=== PATIENT | female | born 1965 | race Caucasian/White ===

== ENCOUNTER → 2017-10-18 | Outpatient (CLI) | payer MEDICAID ==
[~2017-10-18] MED LIST: ACHD5005 PO; ALBU0.632 IH; ALBUTEROL IH; ALPR1T PO; ASP81TEC PO; BENZ100C18 PO; BUDE6HFA IH; CRESTOR40 MG PO; CYCL10TA9 PO; DULO60CA6 PO; EZET10TA5 PO; FENO135C PO; FURO20TA4 PO; HCT25T PO; HYDR-3583 PO; LEVO5TAB2 PO; LEVO750T24 PO; LOSA100T16 PO; LOSA100T7 PO; MNTL10T PO; OMEP20CA12 PO; OMG1KC PO; OXYGEN INH; PHEN-633 PO; PRD10T PO; PRD20T PO; PRD5T PO; PRED5SOL PO; PREG25CA; PREG25CA PO; RT-ALBUTEROL SULF 2.5 MG/3 ML PRE-MIX VIAL INH ONE; TIOT18CA IH; TRAZ150T42 PO; [UNRECOGNIZED DRUG - CODE] PO
== END ==
LOC: RAD 15:06
PROVIDERS: ATTEND Nurse Practitioner Family
DX: J44.9 Chronic obstructive pulmonary disease, unspecified (principal); Z72.0 Tobacco use
CPT/HCPCS: 94060; 94726; 94729

== ENCOUNTER → 2017-11-23 | Outpatient (CLI) | payer MEDICAID ==
[~2017-11-23] VITALS: Ht 152.4 cm; Wt 99.8 kg
[~2017-11-23] MED LIST changes: +CATHETER FLUSH 10 ML SYR IV PRN; +REGADENOSON 0.4 MG/5 ML SYR (LEXISCAN) IV ONE; -RT-ALBUTEROL SULF 2.5 MG/3 ML PRE-MIX VIAL INH ONE
[2017-11-23 09:57] VITALS: BP 208/109
--- NOTE | 2017-11-23 19:10 | STRESS TEST ---
DATE OF SERVICE: 11/23/2017 RESTING AND POST REGADENOSON TECHNETIUM-99M TETROFOSMIN SPECT CT IMAGING CLINICAL DIAGNOSES: Coronary artery disease, history of coronary bypass surgery. Baseline images after injection of 10.43 mCi technetium-99m tetrofosmin. This was followed by 0.4 mg meter regadenoson and 32.3 mCi technetium-99m tetrofosmin for stress imaging. The electrocardiogram showed sinus rhythm with a nonspecific ST and T-wave abnormality. The electrocardiogram did not change with the regadenoson infusion. She felt nausea after the regadenoson infusion. This resolved in a few minutes. Review of images at rest and following stress does not indicate any distinct perfusion defects consistent with significant myocardial ischemia or infarction. Gated images show normal global left ventricular systolic function with normal regional wall motion. Left ventricular ejection fraction is calculated to be 70%. Left ventricular end-diastolic volume is 42 mL. TID is absent (0.86). CONCLUSIONS: 1. No evidence of significant myocardial ischemia or infarction on the study. 2. Normal regional wall motion. 3. Normal global left ventricular systolic function with a calculated ejection fraction of 70%. Job ID: [id number] DocumentID: [id number] Dictated Date: 11/23/2017 16:14:49 Band Leader Date: 11/23/2017 19:09:11 Dictated By: AMAIRANI LABOY MD, MA, FACP, FACC,
== END ==
LOC: CARD 08:05
PROVIDERS: ATTEND Nurse Practitioner Family
DX: Z48.812 Encounter for surgical aftercare following surgery on the circulatory system (principal); Z95.1 Presence of aortocoronary bypass graft
CPT/HCPCS: 78452; 93017

== ENCOUNTER → 2017-12-07 | Outpatient (CLI) | payer MEDICAID ==
[~2017-12-07] MED LIST changes: -CATHETER FLUSH 10 ML SYR IV PRN; -REGADENOSON 0.4 MG/5 ML SYR (LEXISCAN) IV ONE
== END ==
LOC: CARD 10:48
PROVIDERS: ATTEND Nurse Practitioner Family
DX: I73.9 Peripheral vascular disease, unspecified (principal); R06.09 Other forms of dyspnea
CPT/HCPCS: 93306; 93923

== ENCOUNTER 2019-02-02 13:43 | Emergency (ER) | payer MEDICAID ==
[~2019-02-02] VITALS: Ht 152.4 cm; Wt 96.6 kg
--- OUTSIDE RECORDS SUMMARY | 2019-02-02 13:47 | XMS REPORT ---
Author Author Migration, Doctor Organization [facility] Address Unknown Phone Unavailable Care Team Providers Care Steward/Stewardess Bath Name Role Phone Migration, Doctor Unavailable Unavailable PROBLEMS Type Condition ICD9-CM Code DZE66-HK Code Onset Dates Condition Status SNOMED Code Problem Mixed hyperlipidemia E78.2 Active 180123020 Problem Obesity (BMI 30-39.9) E66.9 Active 512254988 Problem PTSD (post-traumatic stress disorder) F43.10 Active 90647866 Problem Sleep apnea in adult G47.30 Active 82076414 Problem Bipolar 1 disorder F31.9 Active 875471291 Problem Coronary artery disease involving coronary bypass graft of [place] heart without angina pectoris I25.810 Active 281579084 Problem COPD mixed type J44.9 Active 94725020 Problem Panic disorder F41.0 Active 282559982 Problem MESERET (generalized anxiety disorder) F41.1 Active 43737799 Problem Mood disorder F39 Active 93476389 Problem Body mass index (BMI) of 45.0-49.9 in adult Z68.42 Active 606332812 Problem Chronic obstructive pulmonary disease with acute exacerbation J44.1 Active 576183725 Problem Cannabis use disorder, mild, abuse F12.10 Active 36585821 Problem Essential hypertension I10 Active 50994620 Problem Coronary artery disease involving [place] coronary artery of [place] heart without angina pectoris I25.10 Active 5576298538608 Problem Claudication I73.9 Active 830227142 Problem Bipolar disorder, in partial remission, most recent episode depressed F31.75 Active 34959885 Problem Morbid (severe) obesity due to excess calories E66.01 Active [id number] ALLERGIES No Information ENCOUNTERS Encounter Location Date Diagnosis [facility], [place] [address] [facility] [id number] [address] January, [facility] [address] [facility] [id number] [id number] January, [facility], [place] [address] [facility] [id number], [place] [address] Dec, Bipolar disorder, in partial remission, most recent episode depressed F31.75 ; Panic disorder F41.0 ; MESERET (generalized anxiety disorder) F41.1 and Cannabis use disorder, mild, abuse F12.10 [facility] [id number] [id number] Dec, COPD mixed type J44.9 [facility] [id number] [place] [address] [phone] Dec, Essential hypertension I10 ; COPD mixed type J44.9 and Morbid obesity E66.01 [place] [place] [address] [id number] [place] [address] 45722- 4503 Nov, [place] [id number] [place] [address] 48476- 4902 Nov, Morbid obesity E66.01 ; Bipolar disorder, in partial remission, most recent episode depressed F31.75 ; Panic disorder F41.0 and MESERET ( generalized anxiety disorder) F41.1 [place] [id number] [place] [address] 10793- 0411 Oct, Bipolar disorder, in partial remission, most recent episode depressed F31.75 ; MESERET (generalized anxiety disorder) F41.1 ; Panic disorder F41.0 and BMI 40.0-44.9, adult Z68.41 [place] [address] [place] [address] 46389- 7388 Sep, Bipolar disorder, in partial remission, most recent episode depressed F31.75 [place] [place] [id number] [place] [address] 68419- 0704 Sep, [facility] [id number] [place] [address] 12169- 6350 Aug, Bipolar disorder, in partial remission, most recent episode depressed F31.75 [place] [place] [id number] [place] [address] 71642- 0462 Aug, Bipolar 1 disorder, depressed F31.9 ; PTSD (post-traumatic stress disorder) F43.10 and Panic attacks F41.0 [place] [address] [address] 17 Aug, 2018 Bipolar disorder, in partial remission, most recent episode depressed F31.75 [place] [address] [place] [address] 60509- 7074 Jul, Bipolar disorder, in partial remission, most recent episode depressed F31.75 ; MESERET (generalized anxiety disorder) F41.1 ; Panic disorder F41.0 and BMI 45.0-49.9, adult Z68.42 [place] [place] [address] [place] [address] 75047- 8731 16 Jul, 2018 Bipolar disorder, in partial remission, most recent episode depressed F31.75 [facility] [address] [place] [address] [phone] May, Hidradenitis suppurativa L73.2 and BMI 45.0-49.9, adult Z68.42 [place] [id number] [place] [address] 79626- 0195 18 May, 2018 Bipolar 1 disorder, depressed F31.9 ; PTSD (post-traumatic stress disorder) F43.10 and Panic attacks F41.0 [place] [address] [place] [address] 35616- 2254 18 May, 2018 Bipolar disorder, in partial remission, most recent episode depressed F31.75 ; MESERET (generalized anxiety disorder) F41.1 ; Panic disorder F41.0 and BMI 45.0-49.9, adult Z68.42 [place] [address] [place] [address] 49001- 9737 Apr, Bipolar disorder, in partial remission, most recent episode depressed F31.75 ; MESERET (generalized anxiety disorder) F41.1 ; Panic disorder F41.0 and BMI 45.0-49.9, adult Z68.42 [facility] [address] [place] [address] [id number] Apr, [facility] [id number] [place] [address] 00223- 1713 Apr, Bipolar 1 disorder, depressed F31.9 [place] [address]00565100[place] [address] 7[address] Mar, Bipolar disorder, in partial remission, most recent episode depressed F31.75 ; MESERET (generalized anxiety disorder) F41.1 ; Panic disorder F41.0 and BMI 45.0-49.9, adult Z68.42 [facility] [id number] [place] [address] [id number] 16 Mar, 2018 High risk medication use Z79.899 and Mixed hyperlipidemia E78.2 [facility] [address] [place] [address] [phone] Mar, COPD mixed type J44.9 ; Essential hypertension I10 ; Sleep apnea in adult G47.30 ; Mixed hyperlipidemia E78.2 ; Morbid (severe) obesity due to excess calories E66.01 ; Body mass index (BMI) of 45.0-49.9 in adult Z68.42 ; Tobacco abuse Z72.0 ; Tobacco abuse counseling Z71.6 and BMI 45.0-49.9, adult Z68.42 [place] [address] [place] [address] 19459- 0627 Feb, Bipolar disorder, in partial remission, most recent episode depressed F31.75 ; MESERET (generalized anxiety disorder) F41.1 ; Panic disorder F41.0 and BMI 45.0-49.9, adult Z68.42 [place] [address] [place] [address] 52013- 0045 Feb, Bipolar 1 disorder, depressed F31.9 ; PTSD (post-traumatic stress disorder) F43.10 and Panic attacks F41.0 [place] [address] [place] [address] 64894- 7353 Feb, High risk medication use Z79.899 [place] [address] [place] [address] 56042- 9331 January, High risk medication use Z79.899 ; Bipolar disorder, in partial remission, most recent episode depressed F31.75 ; MESERET (generalized anxiety disorder) F41.1 ; Panic disorder F41.0 and BMI 45.0-49.9, adult Z68.42 [place] [id number] [place] [address] 04097- 2035 January, Bipolar 1 disorder, depressed F31.9 ; PTSD (post-traumatic stress disorder) F43.10 and Panic attacks F41.0 [place] [id number] [place] [address] 27213- 5452 January, Bipolar 1 disorder, depressed F31.9 ; PTSD (post-traumatic stress disorder) F43.10 and Panic attacks F41.0 [place] [id number] [place] [address] 24075- 4396 Dec, BMI 45.0-49.9, adult Z68.42 ; Bipolar disorder, in partial remission, most recent episode depressed F31.75 ; MESERET (generalized anxiety disorder) F41.1 and Panic disorder F41.0 [place] [id number] [place] [address] 37161- 0515 Dec, Bipolar 1 disorder, depressed F31.9 ; PTSD (post-traumatic stress disorder) F43.10 and Panic attacks F41.0 [place] [id number] [place] [address] 58200- 6095 Nov, Bipolar disorder, in partial remission, most recent episode depressed F31.75 ; MESERET (generalized anxiety disorder) F41.1 and Panic disorder F41.0 [place] [address] [place] [address] 44361- 6373 Nov, [place] [id number] [place] [address] 09289- 6982 Nov, [place] [id number] [place] [address] 05158- 7419 Oct, BMI 45.0-49.9, adult Z68.42 ; Bipolar disorder, in partial remission, most recent episode depressed F31.75 ; MESERET (generalized anxiety disorder) F41.1 and Panic disorder F41.[address] [facility] [address] [id number] [place] [id number] 23 Oct, 2017 BMI 45.0-49.9, adult Z68.42 ; Coronary artery disease involving [place] coronary artery of [place] heart without angina pectoris I25.10 ; Hx of CABG Z95.1 ; Dyspnea on exertion R06.09 ; Essential hypertension I10 ; Mixed hyperlipidemia E78.2 ; Claudication I73.9 and Tobacco use Z72.0 [facility] [address] [facility] [id number][place] [id number] 15 Oct, 2017 BMI 45.0-49.9, adult Z68.42 ; Bipolar 1 disorder, depressed F31.9 and Abscess L02.91 [address] [place] [address] 48616- 2401 14 Oct, 2017 Bipolar 1 disorder, depressed F31.9 ; PTSD (post-traumatic stress disorder) F43.10 and Panic attacks F41.0 [address] [place] [address] 71562- 0822 Sep, BMI 40.0-44.9, adult Z68.41 ; Mood disorder F39 ; MESERET ( generalized anxiety disorder) F41.1 and Panic disorder F41.0 [address] [place] [address] 91747- 4319 Sep, BMI 40.0-44.9, adult Z68.41 [place] [address] [place] [address] 13228- 7667 Sep, Bipolar 1 disorder, depressed F31.9 ; PTSD (post-traumatic stress disorder) F43.10 and Panic attacks F41.0 [place] [id number] [place] [address] 63738- 8586 Aug, BMI 40.0-44.9, adult Z68.41 ; Mood disorder F39 ; MESERET ( generalized anxiety disorder) F41.1 and Panic disorder F41.0 [place] [id number] [place] [address] 06904- 0496 Aug, Bipolar 1 disorder, depressed F31.9 ; PTSD (post-traumatic stress disorder) F43.10 and Panic attacks F41.0 [place] [id number] [place] [address] [phone] Aug, [facility] [id number] [place] [address] [phone] Aug, COPD mixed type J44.9 [place] [address] 32557- 4618 Aug, [place] [address] [place] [id number] [place] [address] 48304- 7942 Jul, PTSD (post-traumatic stress disorder) F43.10 ; Panic disorder F41.0 ; MESERET (generalized anxiety disorder) F41.1 ; Mood disorder F39 and BMI 40.0-44.9, adult Z68.41 [place] [address] [place] [address] [place] [address] 17896- 0116 Jul, Bipolar 1 disorder, depressed F31.9 ; PTSD (post-traumatic stress disorder) F43.10 and Panic attacks F41.0 [place] [id number] [place] [address] [id number] Jul, Bipolar 1 disorder, depressed F31.9 [address] [place] [address] [phone] Jul, Anxiety F41.9 ; COPD mixed type J44.9 ; Essential hypertension I10 ; Bipolar 1 disorder F31.9 ; High risk medication use Z79.899 ; BMI 40.0-44.9, adult Z68.41 and Coronary artery disease involving coronary bypass graft of [place] heart without angina pectoris I25.810 [place] [id number] [place] [address] [phone] Jul, Chronic obstructive pulmonary disease with acute exacerbation J44.1 and Acute nasopharyngitis J00 [facility] [address] [place] [address] [phone] Jul, Anxiety F41.9 ; Mixed hyperlipidemia E78.2 and Bipolar 1 disorder F31.9 [facility] [address] [id number] [place] [address] Jun Bipolar 1 disorder F31.9 [facility] [address] [id number] [place] [address] Jun [facility] [address] [place] [address] [id number][place] [id number] Jun, Anxiety F41.9 ; Elevated blood sugar R73.9 ; Mixed hyperlipidemia E78.2 ; COPD mixed type J44.9 ; Essential hypertension I10 ; Bipolar 1 disorder F31.9 ; Coronary artery disease involving coronary bypass graft of [place] heart without angina pectoris I25.810 ; High risk medication use Z79.899 ; Controlled substance agreement signed Z79.899 ; Elevated fasting glucose R73.01 ; Encounter for immunization Z23 and BMI 40.0-44.9, adult Z68.41 [facility] [id number] [place] [address] [phone] Jun, Elevated blood sugar R73.9 [facility] [id number] [place] [address] [phone] Jun, [facility] [address] [id number] [place] [address] [phone] Jun, Bipolar 1 disorder F31.9 ; Obesity (BMI 30-39.9) E66.9 ; Coronary artery disease involving coronary bypass graft of [place] heart without angina pectoris I25.810 and Essential hypertension I10 [facility] [id number] [place] [address] [phone] Jun, Coronary artery disease involving coronary bypass graft of [place] heart without angina pectoris I25.810 ; Bipolar 1 disorder F31.9 ; Anxiety F41.9 ; Essential hypertension I10 ; COPD mixed type J44.9 and Mixed hyperlipidemia E78.2 [place] [address] [id number] [place] [address] [phone] May, Severe single current episode of major depressive disorder, 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.2 ; Bipolar 1 disorder F31.9 ; Anxiety F41.9 ; PTSD (post -traumatic stress disorder) F43.10 ; Coronary artery disease involving coronary bypass graft of [place] heart without angina pectoris I25.810 ; Sleep apnea in adult G47.30 ; Essential hypertension I10 ; High risk medication use Z79.899 ; Obesity (BMI 30-39.9) E66.9 ; Encounter for therapeutic drug level monitoring Z51.81 and COPD mixed type J44.9 [facility] [address] [place] [address] [phone] May, Severe single current episode of major depressive disorder, 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.2 ; Bipolar 1 disorder F31.9 ; Anxiety F41.9 ; PTSD (post -traumatic stress disorder) F43.10 ; Mixed hyperlipidemia E78.2 ; Coronary artery disease involving coronary bypass graft of [place] heart without angina pectoris I25.810 ; Sleep apnea in adult G47.30 ; Essential hypertension I10 ; High risk medication use Z79.899 ; Controlled substance agreement signed Z79.899 ; Obesity (BMI 30-39.9) E66.9 ; Tobacco abuse Z72.0 ; Tobacco abuse counseling Z71.6 and COPD mixed type J44.9 [facility] [id number] [place] [address] [phone] May, [facility], [place] [id number] [place] [address] [id number]- 1199 Dec, [facility], [place] [address] [id number] [place] [address] [phone]- 5404 Dec, [facility], [place] [id number] [place] [address] [phone] May, [facility], [place] [id number] [place] [address] 58285- 6422 May, [facility] [address] [place] [address] [phone] Dec, [facility], [place] [id number] [place] [address] 468008- 7507 Dec, [facility] [address] [place] [address] [id number] Dec, [facility], [place] [address] 70214- 3126 Dec, [facility] [place] [facility] [address] [id number] [place] [address]- 2543 Dec, [facility] [place] [facility] [address] [id number] [place] [address]- 2546 Dec, [facility] [place] [facility] [address] [facility] [id number] [place] [address]- 2546 Nov, [facility] [address] [id number] [place] [id number] Nov, [facility] [address] [id number] [place] [id number] Nov, [facility] [address] [id number] [place] [phone] Nov, [facility] [place] [facility] [address] [facility] [id number] [place] [address]- 2546 Nov, [facility] [place] [facility] [address] [place] [address] [id number] [address]- 2546 Nov, [facility] [place] [facility] [address] [facility] [id number] [place] [address]- 2546 Nov, [facility] [place] [facility] [address] [facility] [id number] [place] [address] 2546 15 Nov, 2013 [facility] [place] [facility] [address] [place] [id number] [address]- 2546 Nov, [facility] [place] [facility] [address] [facility] [id number][place] [address]- 2546 Nov, [facility] [address] [id number] [place] [id number] Nov, [facility] [address] [id number] [place] [id number] Oct, [facility] [place] [facility] [address] [id number] [place] [address]- 2546 Oct, [facility] [address] [id number] [place] [id number] Oct, [facility] [place] [facility] [address] [facility] [id number], [place] [address]- 5966 Oct, [facility] [address] [facility] [id number], [place] [address]- 3596 Oct, [facility] [address] [facility] [id number][place] [id number] Sep, [facility] [address] [facility] [id number], [place] [address]- 1966 Sep, [facility] [address] [facility] [id number], [place] [id number] Sep, [facility] [place] [facility] [address] [facility] [id number], [place] [address]- 8796 Sep, [facility] [place] [facility] [address] [place] [address] [id number] [address]- 8346 Sep, [facility] [address]00565[place] [address]- 0378 Sep, [facility] [place] [facility] [address]00565[place] [address]- 0150 Aug, [facility] [address] [facility] [id number][place] [id number] Aug, [facility] [place] [facility] [address]00565[place] [address]- 0316 Aug, [facility] [id number], [place] [id number] Jul, [facility] [place] [facility] [address] [facility] [id number][place] [address]- 8112 Jul, [facility] [address] [facility] [id number], [place] [id number] Jul, [facility] [place] [facility] [address] [facility] [id number], [place] [address]- 7016 Jul, [facility] [place] [facility] [address] [id number] [address]- 7873 May, [facility] [place] [facility] [address]00565[address] [address]- 2546 Apr, [facility] [address] [facility] [id number], [place] [address]- 2546 Apr, [facility] [address] [facility] [id number][place] [address]- 2546 Mar, [facility] [address] [id number] [place] [id number] Feb, [facility] [address] [id number] [place] [id number] Feb, [facility] [address] [id number] [place] [id number] Feb, [facility] [address] [facility] [id number] [place] [address] 26567- 2546 Feb, [facility] [place] [facility] [address] [id number] [address]- 2546 January, [facility] [address]00565100[place], [place] [address]- 2546 January, [facility] [address] [id number] [place] [id number] Dec, [facility] [address] [id number] [place] [id number] Dec, [facility] [address] [id number][place] [id number] Dec, [facility] [address] [id number], [place] [id number] Dec, [facility] [address] [id number] [place] [id number] Dec, [facility] [address] [id number] [place] [id number] Dec, [facility] [address] [facility] [id number], [place] [address]- 2546 Dec, [facility] [place] [facility] [address] [facility] [id number], [place] [address]- 2546 Dec, [facility] [address] [id number][place] [id number] Nov, [facility] [address] [facility] [id number][place] [id number] Nov, [facility] [address] [facility] [id number] [place] [id number] Nov, [facility] [address] [facility] [id number] [place] [address]- 2546 Oct, [facility] [place] [facility] [address]100[facility] [address]- 2546 Oct, [facility] [place] [facility] [address] [facility] [id number] [place] [address]- 2550 Sep, [facility] [place] [facility] [id number] [address]- 3616 Aug, [facility] [id number] [address]- 5152 Aug, [facility] [place] [facility] [id number] [address]- 4286 Aug, [facility] [place] [facility] [id number] [address]- 0228 Aug, [facility] [id number], [place] [id number] Aug, [facility] [address]00565[place] [address]- 9236 Aug, [facility] [place] [facility] [address]00565100[place], [place] [address]- 2546 Jul, [facility] [place] [facility] [address] [facility] [id number], [place] [address] Jul, [facility] [place] [facility] [id number], [place] [address] Jul, [facility] [place] [facility] [address] [facility] [id number], [place] [address] Jul, [facility] [address] [id number] [id number] Jun, [facility] [address] [id number] [place] [id number] Jun, [facility] [place] [facility] [address] [facility] [id number] [place] [address] Jun, [facility] [address] [facility] [id number] [place] [id number] Apr, [facility] [place] [facility] [id number], [place] [address] Apr, [facility] [place] [facility] [address] [facility] [id number] [place] [address] Mar, [facility] [address] [id number] [place] [id number] Feb, [facility] [address] [facility] [id number] [place] [id number] Feb, [facility] [place] [facility] [id number], [place] [address] Feb, [facility] [address] [facility] [id number][place] [id number] Feb, [facility] [place] [facility] [id number], [place] [address] Feb, [facility] [place] [facility] [id number], [place] [address] Feb, [facility] [place] [facility] [id number], [place] [address] Feb, [facility] [place] [facility] [address] [facility] [id number], [place] [address] Feb, [facility] [address] [facility] [id number] [place] [id number] January, [facility] [address] [facility] [id number][place] [id number] Dec, [facility] [place] [facility] [address] [facility] [facility] [id number] [address] Dec, [facility] [place] [facility] [address] [facility] [id number], [place] [address] Dec, [facility] [address] [id number] [place] [id number] Dec, [facility] [address] [facility] [id number], [place] [address] Dec, [facility] [address] [id number] [place] [id number] Dec, [facility] [address] [id number] [place] [id number] Nov, [facility] [address] [id number] [place] [id number] Nov, [facility] [address] [id number] [place] [id number] Nov, [facility] [address] [id number] [place] [id number] Nov, [facility] [address] [address] Oct, [facility] [address] [id number] [place] [id number] Oct, [facility] [address] [id number] [place] [id number] Oct, [facility] [address] [id number] [place] [id number] Oct, [facility] [address] [id number] [place] [id number] Oct, [facility] [address] [id number] [place] [id number] Sep, [facility] [address] [id number] [place] [id number] Sep, [facility] [id number] [place] [address] Sep, [facility] [address]65[place] [address] Sep, [facility] [address]65[place] [address] Sep, [facility] [place] [facility] [address] [id number] [place] [address] Sep, [facility] [place] [facility] [address] [id number] [place] [address] 30 Aug, 2011 [facility] [place] [facility] [address] [id number] [place] [address] Aug, [facility] [place] [facility] [address] [id number] [place] [address] Aug, [facility] [place] [facility] [address] [id number] [place] [address] Aug, [facility] [place] [facility] [address] [id number] [place] [address] Aug, [facility] [place] [facility] [address] [id number] [place] [address] Aug, [facility] [place] [facility] [address] [id number] [place] [address] Aug, [facility] [place] [facility] [address] [id number] [place] [address] Aug, [facility] [place] [facility] [address] [id number] [place] [address] Jun, [facility] [place] [facility] [address] [id number] [place] [address] 27 Jun, 2011 [facility] [place] [facility] [address] [id number] [place] [address] 19 Jun, 2011 [facility] [place] [facility] [address] [id number] [place] [address] 19 Jun, 2011 [facility] [place] [facility] [address] [id number] [place] [address] 14 Jun, 2011 [facility] [place] [facility] [address] [id number] [place] [address] 13 Jun, 2011 [facility] [place] [facility] [address] [id number], [place] [address] Jun, [facility] [place] [address] [facility] [id number], [place] [address] Jun, [facility] [place] [address]65[address] [address] Jun, [facility] [place] [address]65[address] [address] 14 May, 2011 [facility] [place] [address] [facility] [id number], [place] [address] Apr, [facility] [place] [address] [facility] [id number], [place] [address] Feb, [facility] [place] [address] [id number] [address] Dec, [facility] [place] [address]65[address], [place] [address] Aug, [facility] [place] [address]65[address], [place] [address] Aug, [facility] [place] [address]65[address] [address] Aug, [facility] [place] [address]65[address] [address] Aug, [facility] [place] [address] [id number], [place] [address] Jul, [facility] [place] [address] [id number], [place] [address] Jun, [facility] [place] [address] [id number], [place] [address] Jun, IMMUNIZATIONS No Known Immunizations SOCIAL HISTORY Never Assessed REASON FOR VISIT [place] [place] VITAL SIGNS MEDICATIONS Unknown Medications RESULTS No Results PROCEDURES No Known procedures INSTRUCTIONS MEDICATIONS ADMINISTERED No Known Medications MEDICAL (GENERAL) HISTORY Type Description Date Medical History chronic obstructive pulmonary disease (COPD) Medical History emphysema Medical History hypertension Medical History depression Medical History Nerve damage left arm Medical History bipolar disorder Medical History anxiety Medical History asthma Medical History stroke Medical History seizures-2012 last one, hx of taking Dilantin Medical History sleep apnea Medical History Coronary atherosclerosis of unspecified type of vessel, [place] or graft Surgical History section x4 Surgical History CABG x3 Surgical History Left arm-Plate and screws placed Hospitalization History Surgery(s)/Childbirth(s) only
--- OUTSIDE RECORDS SUMMARY | 2019-02-02 13:48 | XMS REPORT ---
Author Author Migration, Doctor Organization [facility] Address Unknown Phone Unavailable Care Team Providers Care Manager Application Name Role Phone Migration, Doctor Unavailable Unavailable PROBLEMS Type Condition ICD9-CM Code GZT52-PP Code Onset Dates Condition Status SNOMED Code Problem Mixed hyperlipidemia E78.2 Active 974703203 Problem Obesity (BMI 30-39.9) E66.9 Active 317354114 Problem PTSD (post-traumatic stress disorder) F43.10 Active 34194590 Problem Sleep apnea in adult G47.30 Active 89341109 Problem Bipolar 1 disorder F31.9 Active 709412014 Problem Coronary artery disease involving coronary bypass graft of [place] heart without angina pectoris I25.810 Active 073497962 Problem COPD mixed type J44.9 Active 11542011 Problem Panic disorder F41.0 Active 068854116 Problem MESERET (generalized anxiety disorder) F41.1 Active 09545717 Problem Mood disorder F39 Active 84094078 Problem Body mass index (BMI) of 45.0-49.9 in adult Z68.42 Active 382439692 Problem Chronic obstructive pulmonary disease with acute exacerbation J44.1 Active 839427316 Problem Cannabis use disorder, mild, abuse F12.10 Active 67277254 Problem Essential hypertension I10 Active 97210306 Problem Coronary artery disease involving [place] coronary artery of [place] heart without angina pectoris I25.10 Active [id number] Problem Claudication I73.9 Active 448040476 Problem Bipolar disorder, in partial remission, most recent episode depressed F31.75 Active 46894768 Problem Morbid (severe) obesity due to excess calories E66.01 Active [id number] ALLERGIES No Information ENCOUNTERS Encounter Location Date Diagnosis [facility], [place] [address] [facility] [id number] [address] January, [facility] [address] [facility] [id number] [place] [id number] January, [facility], [place] [address] [facility] [id number] [address] Dec, Bipolar disorder, in partial remission, most recent episode depressed F31.75 ; Panic disorder F41.0 ; MESERET (generalized anxiety disorder) F41.1 and Cannabis use disorder, mild, abuse F12.10 [facility] [id number] [place] [id number] Dec, COPD mixed type J44.9 [facility] [id number] [place] [address] [id number] Dec, Essential hypertension I10 ; COPD mixed type J44.9 and Morbid obesity E66.01 [place] [id number] [place] [address] 40214- 9875 Nov, [place] [id number] [place] [address] 08239- 9698 Nov, Morbid obesity E66.01 ; Bipolar disorder, in partial remission, most recent episode depressed F31.75 ; Panic disorder F41.0 and MESERET ( generalized anxiety disorder) F41.1 [place] [id number] [place] [address] 97319- 9014 Oct, Bipolar disorder, in partial remission, most recent episode depressed F31.75 ; MESERET (generalized anxiety disorder) F41.1 ; Panic disorder F41.0 and BMI 40.0-44.9, adult Z68.41 [place] [address] [place] [address] 73156- 1553 Sep, Bipolar disorder, in partial remission, most recent episode depressed F31.75 [place] [id number] [place] [address] 14025- 8428 Sep, [place] [id number] [place] [address] 03530- 7170 Aug, Bipolar disorder, in partial remission, most recent episode depressed F31.75 [place] [id number] [place] [address] 58469- 3538 Aug, Bipolar 1 disorder, depressed F31.9 ; PTSD (post-traumatic stress disorder) F43.10 and Panic attacks F41.0 [place] [address]00565100[place] [address] 17 Aug, 2018 Bipolar disorder, in partial remission, most recent episode depressed F31.75 [place] [address] [place] [address] 02975- 4796 Jul, Bipolar disorder, in partial remission, most recent episode depressed F31.75 ; MESERET (generalized anxiety disorder) F41.1 ; Panic disorder F41.0 and BMI 45.0-49.9, adult Z68.42 [place] [address] [place] [address] 54494- 0730 16 Jul, 2018 Bipolar disorder, in partial remission, most recent episode depressed F31.75 [facility] [address] [place] [address] [id number] May, Hidradenitis suppurativa L73.2 and BMI 45.0-49.9, adult Z68.42 [place] [id number] [place] [address] 57840- 2943 18 May, 2018 Bipolar 1 disorder, depressed F31.9 ; PTSD (post-traumatic stress disorder) F43.10 and Panic attacks F41.0 [place] [address] [place] [address] 01938- 3272 18 May, 2018 Bipolar disorder, in partial remission, most recent episode depressed F31.75 ; MESERET (generalized anxiety disorder) F41.1 ; Panic disorder F41.0 and BMI 45.0-49.9, adult Z68.42 [place] [address] [place] [address] 51299- 9017 Apr, Bipolar disorder, in partial remission, most recent episode depressed F31.75 ; MESERET (generalized anxiety disorder) F41.1 ; Panic disorder F41.0 and BMI 45.0-49.9, adult Z68.42 [facility] [address] [place] [address] [phone] Apr, [place] [id number] [place] [address] 83264- 2964 Apr, Bipolar 1 disorder, depressed F31.9 [place] [address]00565100[place] [address] 8965 Mar, Bipolar disorder, in partial remission, most recent episode depressed F31.75 ; MESERET (generalized anxiety disorder) F41.1 ; Panic disorder F41.0 and BMI 45.0-49.9, adult Z68.42 [facility] [id number] [place] [address] [id number] 16 Mar, 2018 High risk medication use Z79.899 and Mixed hyperlipidemia E78.2 [facility] [address] [place] [address] [id number] Mar, COPD mixed type J44.9 ; Essential hypertension I10 ; Sleep apnea in adult G47.30 ; Mixed hyperlipidemia E78.2 ; Morbid (severe) obesity due to excess calories E66.01 ; Body mass index (BMI) of 45.0-49.9 in adult Z68.42 ; Tobacco abuse Z72.0 ; Tobacco abuse counseling Z71.6 and BMI 45.0-49.9, adult Z68.42 [place] [address] [place] [address] 01532- 1639 Feb, Bipolar disorder, in partial remission, most recent episode depressed F31.75 ; MESERET (generalized anxiety disorder) F41.1 ; Panic disorder F41.0 and BMI 45.0-49.9, adult Z68.42 [place] [address] [place] [address] 48236- 3041 Feb, Bipolar 1 disorder, depressed F31.9 ; PTSD (post-traumatic stress disorder) F43.10 and Panic attacks F41.0 [place] [address] [place] [address] 89384- 4587 Feb, High risk medication use Z79.899 [place] [address] [place] [address] 58313- 0314 January, High risk medication use Z79.899 ; Bipolar disorder, in partial remission, most recent episode depressed F31.75 ; MESERET (generalized anxiety disorder) F41.1 ; Panic disorder F41.0 and BMI 45.0-49.9, adult Z68.42 [place] [id number] [place] [address] 06928- 2389 January, Bipolar 1 disorder, depressed F31.9 ; PTSD (post-traumatic stress disorder) F43.10 and Panic attacks F41.0 [place] [id number] [place] [address] 19407- 0089 January, Bipolar 1 disorder, depressed F31.9 ; PTSD (post-traumatic stress disorder) F43.10 and Panic attacks F41.0 [place] [id number] [place] [address] 62474- 6974 Dec, BMI 45.0-49.9, adult Z68.42 ; Bipolar disorder, in partial remission, most recent episode depressed F31.75 ; MESERET (generalized anxiety disorder) F41.1 and Panic disorder F41.0 [place] [id number] [place] [address] 29974- 6790 Dec, Bipolar 1 disorder, depressed F31.9 ; PTSD (post-traumatic stress disorder) F43.10 and Panic attacks F41.0 [place] [id number] [place] [address] 57192- 1969 Nov, Bipolar disorder, in partial remission, most recent episode depressed F31.75 ; MESERET (generalized anxiety disorder) F41.1 and Panic disorder F41.0 [place] [address] [place] [address] 28343- 0325 Nov, [place] [id number] [place] [address] 46939- 0556 Nov, [place] [id number] [place] [address] 37447- 0027 Oct, BMI 45.0-49.9, adult Z68.42 ; Bipolar disorder, in partial remission, most recent episode depressed F31.75 ; MESERET (generalized anxiety disorder) F41.1 and Panic disorder F41.0 [facility] [address] [id number] [place] [id number] 23 Oct, 2017 BMI 45.0-49.9, adult Z68.42 ; Coronary artery disease involving [place] coronary artery of [place] heart without angina pectoris I25.10 ; Hx of CABG Z95.1 ; Dyspnea on exertion R06.09 ; Essential hypertension I10 ; Mixed hyperlipidemia E78.2 ; Claudication I73.9 and Tobacco use Z72.0 [facility] [address] [facility] [id number] [place] [id number] 15 Oct, 2017 BMI 45.0-49.9, adult Z68.42 ; Bipolar 1 disorder, depressed F31.9 and Abscess L02.[address] [place] [address] 19402- 1730 14 Oct, 2017 Bipolar 1 disorder, depressed F31.9 ; PTSD (post-traumatic stress disorder) F43.10 and Panic attacks F41.0 [address] [place] [address] 09706- 1121 Sep, BMI 40.0-44.9, adult Z68.41 ; Mood disorder F39 ; MESERET ( generalized anxiety disorder) F41.1 and Panic disorder F41.0 [address] [place] [address] 52352- 3395 Sep, BMI 40.0-44.9, adult Z68.41 [place] [address] [place] [address] 33974- 1030 Sep, Bipolar 1 disorder, depressed F31.9 ; PTSD (post-traumatic stress disorder) F43.10 and Panic attacks F41.0 [place] [id number] [place] [address] 42181- 1806 Aug, BMI 40.0-44.9, adult Z68.41 ; Mood disorder F39 ; MESERET ( generalized anxiety disorder) F41.1 and Panic disorder F41.0 [place] [id number] [place] [address] 63238- 1766 Aug, Bipolar 1 disorder, depressed F31.9 ; PTSD (post-traumatic stress disorder) F43.10 and Panic attacks F41.0 [place] [id number] [place] [address] [id number] Aug, [facility] [id number] [place] [address] [id number] Aug, COPD mixed type J44.9 [place] [address] 52147- 6029 Aug, [place] [address] [place] [address] 16230- 3871 Jul, PTSD (post-traumatic stress disorder) F43.10 ; Panic disorder F41.0 ; MESERET (generalized anxiety disorder) F41.1 ; Mood disorder F39 and BMI 40.0-44.9, adult Z68.41 [place] [address] [address] [place] [address] 68071- 5786 Jul, Bipolar 1 disorder, depressed F31.9 ; PTSD (post-traumatic stress disorder) F43.10 and Panic attacks F41.0 [place] [id number] [place] [address] [id number] Jul, Bipolar 1 disorder, depressed F31.9 [address] [place] [address] [id number] Jul, Anxiety F41.9 ; COPD mixed type J44.9 ; Essential hypertension I10 ; Bipolar 1 disorder F31.9 ; High risk medication use Z79.899 ; BMI 40.0-44.9, adult Z68.41 and Coronary artery disease involving coronary bypass graft of [place] heart without angina pectoris I25.810 [place] [id number] [place] [address] [id number] Jul, Chronic obstructive pulmonary disease with acute exacerbation J44.1 and Acute nasopharyngitis J00 [facility] [address] [place] [address] [id number] Jul, Anxiety F41.9 ; Mixed hyperlipidemia E78.2 and Bipolar 1 disorder F31.9 [facility] [address] [id number] [place] [address] Jun Bipolar 1 disorder F31.9 [facility] [address] [id number] [place] [address] Jun [facility] [address] [place] [address] [id number] [place] [id number] Jun, Anxiety F41.9 ; Elevated blood sugar R73.9 ; Mixed hyperlipidemia E78.2 ; COPD mixed type J44.9 ; Essential hypertension I10 ; Bipolar 1 disorder F31.9 ; Coronary artery disease involving coronary bypass graft of [place] heart without angina pectoris I25.810 ; High risk medication use Z79.899 ; Controlled substance agreement signed Z79.899 ; Elevated fasting glucose R73.01 ; Encounter for immunization Z23 and BMI 40.0-44.9, adult Z68.41 [facility] [id number] [place] [address] [id number] Jun, Elevated blood sugar R73.9 [facility] [id number] [place] [address] [id number] Jun, [facility] [id number] [place] [address] [id number] Jun, Bipolar 1 disorder F31.9 ; Obesity (BMI 30-39.9) E66.9 ; Coronary artery disease involving coronary bypass graft of [place] heart without angina pectoris I25.810 and Essential hypertension I10 [facility] [id number] [place] [address] [id number] Jun, Coronary artery disease involving coronary bypass graft of [place] heart without angina pectoris I25.810 ; Bipolar 1 disorder F31.9 ; Anxiety F41.9 ; Essential hypertension I10 ; COPD mixed type J44.9 and Mixed hyperlipidemia E78.2 [place] [id number] [place] [address] [id number] May, Severe single current episode of major depressive disorder, 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.2 ; Bipolar 1 disorder F31.9 ; Anxiety F41.9 ; PTSD (post -traumatic stress disorder) F43.10 ; Coronary artery disease involving coronary bypass graft of [place] heart without angina pectoris I25.810 ; Sleep apnea in adult G47.30 ; Essential hypertension I10 ; High risk medication use Z79.899 ; Obesity (BMI 30-39.9) E66.9 ; Encounter for therapeutic drug level monitoring Z51.81 and COPD mixed type J44.9 [facility] [address] [place] [address] [phone] May, Severe single current episode of major depressive disorder, 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.2 ; Bipolar 1 disorder F31.9 ; Anxiety F41.9 ; PTSD (post -traumatic stress disorder) F43.10 ; Mixed hyperlipidemia E78.2 ; Coronary artery disease involving coronary bypass graft of [place] heart without angina pectoris I25.810 ; Sleep apnea in adult G47.30 ; Essential hypertension I10 ; High risk medication use Z79.899 ; Controlled substance agreement signed Z79.899 ; Obesity (BMI 30-39.9) E66.9 ; Tobacco abuse Z72.0 ; Tobacco abuse counseling Z71.6 and COPD mixed type J44.9 [facility] [id number] [place] [address] [id number] May, [facility], [place] [id number] [place] [address] [id number] Dec, [facility], [place] [id number] [place] [address] [id number]- 5074 Dec, [facility], [place] [id number] [place] [address] [id number] May, [facility], [place] [id number] [place] [address] 02555- 0873 May, [facility] [address] [place] [address] [id number] Dec, [facility], [place] [id number] [place] [address] 021162- 3765 Dec, [facility] [address] [place] [address] [id number] Dec, [facility], [place] [address] 85480- 5416 Dec, [facility] [place] [facility] [address] [id number] [place] [address]- 2545 Dec, [facility] [place] [facility] [address] [id number] [place] [address]- 2546 Dec, [facility] [place] [facility] [address] [facility] [id number] [place] [address]- 2546 Nov, [facility] [address] [id number] [place] [id number] Nov, [facility] [address] [id number] [place] [id number] Nov, [facility] [address] [id number] [place] [id number] Nov, [facility] [place] [facility] [address] [facility] [id number] [place] [address]- 2546 Nov, [facility] [place] [facility] [address] [place] [id number] [place] [address]- 2546 Nov, [facility] [place] [facility] [address] [facility] [id number] [place] [address]- 2546 Nov, [facility] [place] [facility] [address] [facility] [id number] [place] [address] 2546 15 Nov, 2013 [facility] [place] [facility] [address] [id number] [place] [address]- 2546 Nov, [facility] [place] [facility] [address] [facility] [id number] [address]- 2546 Nov, [facility] [address] [id number] [place] [id number] Nov, [facility] [address] [id number] [place] [id number] Oct, [facility] [place] [facility] [address] [id number] [place] [address]- 2546 Oct, [facility] [address] [id number] [place] [id number] Oct, [facility] [place] [facility] [address] [facility] [id number] [address]- 1306 Oct, [facility] [address] [facility] [id number] [place] [address]- 5106 Oct, [facility] [address] [facility] [id number] [place] [id number] Sep, [facility] [address] [facility] [id number] [address]- 4066 Sep, [facility] [address] [facility] [id number] [place] [id number] Sep, [facility] [place] [facility] [address] [facility] [id number] [address]- 0796 Sep, [facility] [place] [facility] [address] [id number] [address]- 9076 Sep, [facility] [address] [address]- 3277 Sep, [facility] [place] [facility] [address] [address]- 3010 Aug, [facility] [address] [facility] [id number] [place] [id number] Aug, [facility] [place] [facility] [address] [address]- 4416 Aug, [facility] [id number] [place] [id number] Jul, [facility] [place] [facility] [address] [facility] [id number] [address]- 2899 Jul, [facility] [address] [facility] [id number] [place] [id number] Jul, [facility] [place] [facility] [address] [facility] [id number] [place] [address]- 1826 Jul, [facility] [place] [facility] [address] [id number] [address]- 2170 May, [facility] [place] [facility] [address]100[place] [address]- 2546 Apr, [facility] [address] [facility] [id number] [place] [address]- 2546 Apr, [facility] [address] [facility] [id number] [address]- 2546 Mar, [facility] [address] [id number] [place] [id number] Feb, [facility] [address] [id number] [place] [id number] Feb, [facility] [address] [id number] [place] [id number] Feb, [facility] [address] [facility] [id number] [place] [address] 40652- 2546 Feb, [facility] [place] [facility] [address] [id number] [address]- 2546 January, [facility] [address] [address]- 2546 January, [facility] [address] [id number] [place] [id number] Dec, [facility] [address] [id number] [place] [address]46[address] Dec, [facility] [address] [id number] [place] [id number] Dec, [facility] [address] [id number] [place] [id number] Dec, [facility] [address] [id number] [place] [id number] Dec, [facility] [address] [id number] [place] [id number] Dec, [facility] [address] [facility] [id number] [place] [address]- 2546 Dec, [facility] [place] [facility] [address] [facility] [id number] [address]- 2546 Dec, [facility] [address] [id number] [place] [id number] Nov, [facility] [address] [facility] [id number] [place] [id number] Nov, [facility] [address] [facility] [id number] [place] [id number] Nov, [facility] [address] [facility] [id number] [place] [address]- 2546 Oct, [facility] [place] [facility] [id number] [place] [address]- 2546 Oct, [facility] [place] [facility] [address] [facility] [id number] [place] [address]- 0344 Sep, [facility] [place] [facility] [id number] [place] [address]- 4646 Aug, [facility] [id number] [place] [address]- 5914 Aug, [facility] [place] [facility] [id number] [place] [address]- 9386 Aug, [facility] [place] [facility] [id number] [place] [address]- 6489 Aug, [facility] [id number] [place] [id number] Aug, [facility] [address]00565100[place] [address]- 1666 Aug, [facility] [place] [facility] [address]100[place] [address]- 2546 Jul, [facility] [place] [facility] [address] [facility] [id number] [address] Jul, [facility] [place] [facility] [id number] [address] Jul, [facility] [place] [facility] [address] [facility] [id number] [address] Jul, [facility] [address] [id number] [place] [id number] Jun, [facility] [address] [id number] [place] [id number] Jun, [facility] [place] [facility] [address] [facility] [id number] [place] [address] Jun, [facility] [address] [facility] [id number] [place] [id number] Apr, [facility] [place] [facility] [id number] [address] Apr, [facility] [place] [facility] [address] [facility] [id number] [place] [address] Mar, [facility] [address] [id number] [place] [id number] Feb, [facility] [address] [facility] [id number] [place] [id number] Feb, [facility] [place] [facility] [id number] [address] Feb, [facility] [address] [facility] [id number] [place] [id number] Feb, [facility] [place] [facility] [id number] [address] Feb, [facility] [place] [facility] [id number] [address] Feb, [facility] [place] [facility] [id number] [address] Feb, [facility] [place] [facility] [address] [facility] [id number] [address] Feb, [facility] [address] [facility] [id number] [place] [id number] January, [facility] [address] [facility] [id number] [place] [id number] Dec, [facility] [place] [facility] [address] [facility] [id number] [address] Dec, [facility] [place] [facility] [address] [facility] [id number] [address] Dec, [facility] [address] [id number] [place] [id number] Dec, [facility] [address] [facility] [id number] [address] Dec, [facility] [address] [id number] [place] [id number] Dec, [facility] [address] [id number] [place] [id number] Nov, [facility] [address] [id number] [place] [id number] Nov, [facility] [address] [id number] [place] [id number] Nov, [facility] [address] [id number] [place] [id number] Nov, [facility] [id number] [address] Oct, [facility] [address] [id number] [place] [id number] Oct, [facility] [address] [id number] [place] [id number] Oct, [facility] [address] [id number] [place] [id number] Oct, [facility] [address] [id number] [place] [id number] Oct, [facility] [address] [id number] [place] [id number] Sep, [facility] [address] [id number] [place] [id number] Sep, [facility] [id number] [place] [address] Sep, [facility] [id number] [address] Sep, [facility] [id number] [address] Sep, [facility] [place] [facility] [address] [id number] [place] [address] Sep, [facility] [place] [facility] [address] [id number] [place] [address] 30 Aug, 2011 [facility] [place] [facility] [address] [id number] [place] [address] Aug, [facility] [place] [facility] [address] [id number] [place] [address] Aug, [facility] [place] [facility] [address] [id number] [place] [address] Aug, [facility] [place] [facility] [address] [id number] [place] [address] Aug, [facility] [place] [facility] [address] [id number] [place] [address] Aug, [facility] [place] [facility] [address] [id number] [place] [address] Aug, [facility] [place] [facility] [address] [id number] [place] [address] Aug, [facility] [place] [facility] [address] [id number] [place] [address] Jun, [facility] [place] [facility] [address] [id number] [place] [address] 27 Jun, 2011 [facility] [place] [facility] [address] [id number] [place] [address] 19 Jun, 2011 [facility] [place] [facility] [address] [id number] [place] [address] 19 Jun, 2011 [facility] [place] [facility] [address] [id number] [place] [address] 14 Jun, 2011 [facility] [place] [facility] [address] [id number] [place] [address] 13 Jun, 2011 [facility] [place] [facility] [address] [id number] [address] Jun, [facility] [place] [address] [facility] [id number] [address] Jun, [facility] [place] [id number] [address] Jun, [facility] [place] [id number] [address] 14 May, 2011 [facility] [place] [address] [facility] [id number] [address] Apr, [facility] [place] [address] [facility] [id number] [place] [address] Feb, [facility], [place] [address] [id number] [address] Dec, [facility], [place] [id number] [address] Aug, [facility] [place] [address]65100[place] [address] Aug, [facility] [place] [address]65[address] [address] Aug, [facility] [place] [address]65[address] [address] Aug, [facility], [place] [address] [id number] [address] Jul, [facility], [place] [address] [id number] [address] Jun, [facility], [place] [address] [id number] [address] Jun, IMMUNIZATIONS No Known Immunizations SOCIAL HISTORY Never Assessed REASON FOR VISIT EMR-[facility] [place] PLAN OF CARE VITAL SIGNS MEDICATIONS Unknown [...] Coronary atherosclerosis of unspecified type of vessel, [place] or graft Surgical History section x4 Surgical History CABG x3 Surgical History Left arm-Plate and screws placed Hospitalization History Surgery(s)/Childbirth(s) only
--- OUTSIDE RECORDS SUMMARY | 2019-02-02 13:48 | XMS REPORT ---
Author Author Migration, Doctor Organization [facility] Address Unknown Phone Unavailable Care Team Providers Care Documentation Supervisor Name Role Phone Migration, Doctor Unavailable Unavailable PROBLEMS Type Condition ICD9-CM Code EMJ30-AB Code Onset Dates Condition Status SNOMED Code Problem Mixed hyperlipidemia E78.2 Active 198008392 Problem Obesity (BMI 30-39.9) E66.9 Active 599559966 Problem PTSD (post-traumatic stress disorder) F43.10 Active 17461110 Problem Sleep apnea in adult G47.30 Active 99373193 Problem Bipolar 1 disorder F31.9 Active 358350673 Problem Coronary artery disease involving coronary bypass graft of [place] heart without angina pectoris I25.810 Active 562064763 Problem COPD mixed type J44.9 Active 37360966 Problem Panic disorder F41.0 Active 727535011 Problem MESERET (generalized anxiety disorder) F41.1 Active 49563968 Problem Mood disorder F39 Active 42337432 Problem Body mass index (BMI) of 45.0-49.9 in adult Z68.42 Active 608569377 Problem Chronic obstructive pulmonary disease with acute exacerbation J44.1 Active 150419286 Problem Cannabis use disorder, mild, abuse F12.10 Active 69651103 Problem Essential hypertension I10 Active 57035437 Problem Coronary artery disease involving [place] coronary artery of [place] heart without angina pectoris I25.10 Active 2647602764517 Problem Claudication I73.9 Active 901268373 Problem Bipolar disorder, in partial remission, most recent episode depressed F31.75 Active 31278250 Problem Morbid (severe) obesity due to excess calories E66.01 Active [id number] ALLERGIES No Information ENCOUNTERS Encounter Location Date Diagnosis [facility], [place] [address] [facility] [id number] [address] January, [facility] [address] [facility] [id number] [id number] January, [facility], [place] [address] [facility] [id number], [place] [address] Dec, Bipolar disorder, in partial remission, most recent episode depressed F31.75 ; Panic disorder F41.0 ; MESERET (generalized anxiety disorder) F41.1 and Cannabis use disorder, mild, abuse F12.10 [facility] [id number][place] [id number] Dec, COPD mixed type J44.9 [facility] [id number] [place] [address] [id number] Dec, Essential hypertension I10 ; COPD mixed type J44.9 and Morbid obesity E66.01 [place] [id number] [place] [address] 26346- 7663 Nov, [place] [id number] [place] [address] 36249- 7012 Nov, Morbid obesity E66.01 ; Bipolar disorder, in partial remission, most recent episode depressed F31.75 ; Panic disorder F41.0 and MESERET ( generalized anxiety disorder) F41.1 [place] [id number] [place] [address] 43581- 6447 Oct, Bipolar disorder, in partial remission, most recent episode depressed F31.75 ; MESERET (generalized anxiety disorder) F41.1 ; Panic disorder F41.0 and BMI 40.0-44.9, adult Z68.41 [place] [address] [place] [address] 14583- 2498 Sep, Bipolar disorder, in partial remission, most recent episode depressed F31.75 [place] [id number] [place] [address] 78561- 7930 Sep, [place] [id number] [place] [address] 37628- 7530 Aug, Bipolar disorder, in partial remission, most recent episode depressed F31.75 [place] [id number] [place] [address] 01600- 8493 Aug, Bipolar 1 disorder, depressed F31.9 ; PTSD (post-traumatic stress disorder) F43.10 and Panic attacks F41.0 [place] [address]005[place], [place] [address] 17 Aug, 2018 Bipolar disorder, in partial remission, most recent episode depressed F31.75 [place] [address] [place] [address] 98664- 4321 Jul, Bipolar disorder, in partial remission, most recent episode depressed F31.75 ; MESERET (generalized anxiety disorder) F41.1 ; Panic disorder F41.0 and BMI 45.0-49.9, adult Z68.42 [place] [address] [place] [address] 48098- 9970 16 Jul, 2018 Bipolar disorder, in partial remission, most recent episode depressed F31.75 [facility] [address] [place] [address] [phone] May, Hidradenitis suppurativa L73.2 and BMI 45.0-49.9, adult Z68.42 [place] [id number] [place] [address] 56775- 1387 18 May, 2018 Bipolar 1 disorder, depressed F31.9 ; PTSD (post-traumatic stress disorder) F43.10 and Panic attacks F41.0 [place] [address] [place] [address] 19657- 7805 18 May, 2018 Bipolar disorder, in partial remission, most recent episode depressed F31.75 ; MESERET (generalized anxiety disorder) F41.1 ; Panic disorder F41.0 and BMI 45.0-49.9, adult Z68.42 [place] [address] [place] [address] 74024- 1894 Apr, Bipolar disorder, in partial remission, most recent episode depressed F31.75 ; MESERET (generalized anxiety disorder) F41.1 ; Panic disorder F41.0 and BMI 45.0-49.9, adult Z68.42 [facility] [address] [place] [address] [phone] Apr, [place] [id number] [place] [address] 86785- 2350 Apr, Bipolar 1 disorder, depressed F31.9 [place] [address]00565100[place], [place] [address] Mar, Bipolar disorder, in partial remission, most recent episode depressed F31.75 ; MESERET (generalized anxiety disorder) F41.1 ; Panic disorder F41.0 and BMI 45.0-49.9, adult Z68.42 [facility] [id number] [place] [address] [id number] 16 Mar, 2018 High risk medication use Z79.899 and Mixed hyperlipidemia E78.2 [facility] [address] [place] [address] [phone] Mar, COPD mixed type J44.9 ; Essential hypertension I10 ; Sleep apnea in adult G47.30 ; Mixed hyperlipidemia E78.2 ; Morbid (severe) obesity due to excess calories E66.01 ; Body mass index (BMI) of 45.0-49.9 in adult Z68.42 ; Tobacco abuse Z72.0 ; Tobacco abuse counseling Z71.6 and BMI 45.0-49.9, adult Z68.42 [place] [address] [place] [address] 12907- 3094 Feb, Bipolar disorder, in partial remission, most recent episode depressed F31.75 ; MESERET (generalized anxiety disorder) F41.1 ; Panic disorder F41.0 and BMI 45.0-49.9, adult Z68.42 [place] [address] [place] [address] 51850- 6116 Feb, Bipolar 1 disorder, depressed F31.9 ; PTSD (post-traumatic stress disorder) F43.10 and Panic attacks F41.0 [place] [address] [place] [address] 63399- 7764 Feb, High risk medication use Z79.899 [place] [address] [place] [address] 56507- 0511 January, High risk medication use Z79.899 ; Bipolar disorder, in partial remission, most recent episode depressed F31.75 ; MESERET (generalized anxiety disorder) F41.1 ; Panic disorder F41.0 and BMI 45.0-49.9, adult Z68.42 [place] [id number] [place] [address] 26923- 8051 January, Bipolar 1 disorder, depressed F31.9 ; PTSD (post-traumatic stress disorder) F43.10 and Panic attacks F41.0 [place] [id number] [place] [address] 53481- 8120 January, Bipolar 1 disorder, depressed F31.9 ; PTSD (post-traumatic stress disorder) F43.10 and Panic attacks F41.0 [place] [id number] [place] [address] 89046- 6700 Dec, BMI 45.0-49.9, adult Z68.42 ; Bipolar disorder, in partial remission, most recent episode depressed F31.75 ; MESERET (generalized anxiety disorder) F41.1 and Panic disorder F41.0 [place] [id number] [place] [address] 59151- 2945 Dec, Bipolar 1 disorder, depressed F31.9 ; PTSD (post-traumatic stress disorder) F43.10 and Panic attacks F41.0 [place] [id number] [place] [address] 74030- 5285 Nov, Bipolar disorder, in partial remission, most recent episode depressed F31.75 ; MESERET (generalized anxiety disorder) F41.1 and Panic disorder F41.0 [place] [address] [place] [address] 42804- 3777 Nov, [place] [id number] [place] [address] 04718- 0452 Nov, [place] [id number] [place] [address] 32787- 3735 Oct, BMI 45.0-49.9, adult Z68.42 ; Bipolar disorder, in partial remission, most recent episode depressed F31.75 ; MESERET (generalized anxiety disorder) F41.1 and Panic disorder F41.[address] [facility] [address] [id number] [place] [id number] 23 Oct, 2017 BMI 45.0-49.9, adult Z68.42 ; Coronary artery disease involving [place] coronary artery of [place] heart without angina pectoris I25.10 ; Hx of CABG Z95.1 ; Dyspnea on exertion R06.09 ; Essential hypertension I10 ; Mixed hyperlipidemia E78.2 ; Claudication I73.9 and Tobacco use Z72.0 [facility] [address] [facility] [id number] [phone] 15 Oct, 2017 BMI 45.0-49.9, adult Z68.42 ; Bipolar 1 disorder, depressed F31.9 and Abscess L02.91 [address] [place] [address] 57051- 6256 14 Oct, 2017 Bipolar 1 disorder, depressed F31.9 ; PTSD (post-traumatic stress disorder) F43.10 and Panic attacks F41.0 [address] [place] [address] 48645- 2166 Sep, BMI 40.0-44.9, adult Z68.41 ; Mood disorder F39 ; MESERET ( generalized anxiety disorder) F41.1 and Panic disorder F41.0 [address] [place] [address] 95623- 6173 Sep, BMI 40.0-44.9, adult Z68.41 [place] [address] [place] [address] 46399- 7502 Sep, Bipolar 1 disorder, depressed F31.9 ; PTSD (post-traumatic stress disorder) F43.10 and Panic attacks F41.0 [place] [id number] [place] [address] 56051- 7715 Aug, BMI 40.0-44.9, adult Z68.41 ; Mood disorder F39 ; MESERET ( generalized anxiety disorder) F41.1 and Panic disorder F41.0 [place] [id number] [place] [address] 19505- 7396 Aug, Bipolar 1 disorder, depressed F31.9 ; PTSD (post-traumatic stress disorder) F43.10 and Panic attacks F41.0 [place] [id number] [place] [address] [id number] Aug, [facility] [id number] [place] [address] [phone] Aug, COPD mixed type J44.9 [place] [address] 76562- 3133 Aug, [place] [id number] [place] [address] 98184- 2672 Jul, PTSD (post-traumatic stress disorder) F43.10 ; Panic disorder F41.0 ; MESERET (generalized anxiety disorder) F41.1 ; Mood disorder F39 and BMI 40.0-44.9, adult Z68.41 [place] [id number] [place] [address] 85014- 3215 Jul, Bipolar 1 disorder, depressed F31.9 ; PTSD (post-traumatic stress disorder) F43.10 and Panic attacks F41.0 [place] [id number] [place] [address] [phone] Jul, Bipolar 1 disorder, depressed F31.[address] [place] [address] [phone] Jul, Anxiety F41.9 ; COPD mixed type J44.9 ; Essential hypertension I10 ; Bipolar 1 disorder F31.9 ; High risk medication use Z79.899 ; BMI 40.0-44.9, adult Z68.41 and Coronary artery disease involving coronary bypass graft of [place] heart without angina pectoris I25.810 [place] [id number] [place] [address] [phone] Jul, Chronic obstructive pulmonary disease with acute exacerbation J44.1 and Acute nasopharyngitis J00 [facility] [address] [place] [address] [phone] Jul, Anxiety F41.9 ; Mixed hyperlipidemia E78.2 and Bipolar 1 disorder F31.9 [facility] [address] [id number] [place] [address] Jun Bipolar 1 disorder F31.9 [facility] [address] [id number] [place] [address] Jun [facility] [address] [place] [address] [id number] [id number] Jun, Anxiety F41.9 ; Elevated blood sugar R73.9 ; Mixed hyperlipidemia E78.2 ; COPD mixed type J44.9 ; Essential hypertension I10 ; Bipolar 1 disorder F31.9 ; Coronary artery disease involving coronary bypass graft of [place] heart without angina pectoris I25.810 ; High risk medication use Z79.899 ; Controlled substance agreement signed Z79.899 ; Elevated fasting glucose R73.01 ; Encounter for immunization Z23 and BMI 40.0-44.9, adult Z68.41 [facility] [id number] [place] [address] [id number] Jun, Elevated blood sugar R73.9 [facility] [id number] [place] [address] [phone] Jun, [facility] [id number] [place] [address] [phone] Jun, Bipolar 1 disorder F31.9 ; Obesity (BMI 30-39.9) E66.9 ; Coronary artery disease involving coronary bypass graft of [place] heart without angina pectoris I25.810 and Essential hypertension I10 [facility] [id number] [place] [address] [phone] Jun, Coronary artery disease involving coronary bypass graft of [place] heart without angina pectoris I25.810 ; Bipolar 1 disorder F31.9 ; Anxiety F41.9 ; Essential hypertension I10 ; COPD mixed type J44.9 and Mixed hyperlipidemia E78.2 [place] [id number] [place] [address] [phone] May, Severe single current episode of major depressive disorder, 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.2 ; Bipolar 1 disorder F31.9 ; Anxiety F41.9 ; PTSD (post -traumatic stress disorder) F43.10 ; Coronary artery disease involving coronary bypass graft of [place] heart without angina pectoris I25.810 ; Sleep apnea in adult G47.30 ; Essential hypertension I10 ; High risk medication use Z79.899 ; Obesity (BMI 30-39.9) E66.9 ; Encounter for therapeutic drug level monitoring Z51.81 and COPD mixed type J44.9 [facility] [address] [place] [address] [phone] May, Severe single current episode of major depressive disorder, 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.2 ; Bipolar 1 disorder F31.9 ; Anxiety F41.9 ; PTSD (post -traumatic stress disorder) F43.10 ; Mixed hyperlipidemia E78.2 ; Coronary artery disease involving coronary bypass graft of [place] heart without angina pectoris I25.810 ; Sleep apnea in adult G47.30 ; Essential hypertension I10 ; High risk medication use Z79.899 ; Controlled substance agreement signed Z79.899 ; Obesity (BMI 30-39.9) E66.9 ; Tobacco abuse Z72.0 ; Tobacco abuse counseling Z71.6 and COPD mixed type J44.9 [facility] [id number] [place] [address] [phone] May, [facility], [place] [id number] [place] [address] [id number]- 4933 Dec, [facility], [place] [id number] [place] [address] [id number]- 9499 Dec, [facility], [place] [id number] [place] [address] [id number]- 5977 May, [facility], [place] [id number] [place] [address] 22872- 7679 May, [facility] [address] [place] [address] [phone] Dec, [facility], [place] [id number] [place] [address] 401432- 0305 Dec, [facility] [address] [place] [address] [phone] Dec, [facility], [place] [address] 82659- 7046 Dec, [facility] [place] [facility] [address] [id number] [place] [address]- 254 Dec, [facility] [place] [facility] [address] [id number] [place] [address]- 2546 Dec, [facility] [place] [facility] [address] [facility] [id number] [place] [address]- 2546 Nov, [facility] [address] [id number] [place] [id number] Nov, [facility] [address] [id number] [place] [phone] Nov, [facility] [address] [id number] [place] [id number] Nov, [facility] [place] [facility] [address] [facility] [id number] [place] [address]- 2546 Nov, [facility] [place] [facility] [address] [place] [address] [id number] [place] [address]- 2546 Nov, [facility] [place] [facility] [address] [facility] [id number] [place] [address]- 2546 Nov, [facility] [place] [facility] [address] [facility] [id number] [place] [address] 2546 15 Nov, 2013 [facility] [place] [facility] [address] [place] [address] [id number] [place] [address]- 2546 Nov, [facility] [place] [facility] [address] [facility] [id number], [place] [address]- 2546 Nov, [facility] [address] [id number] [place] [id number] Nov, [facility] [address] [id number] [place] [id number] Oct, [facility] [place] [facility] [address] [id number] [place] [address]- 2546 Oct, [facility] [address] [id number] [place] [id number] Oct, [facility] [place] [facility] [address] [facility] [id number], [place] [address]- 2556 Oct, [facility] [address] [facility] [id number], [place] [address]- 1016 Oct, [facility] [address] [facility] [id number][place] [phone] Sep, [facility] [address] [facility] [id number], [place] [address]- 2716 Sep, [facility] [address] [facility] [id number][place] [phone] Sep, [facility] [place] [facility] [address] [facility] [id number], [place] [address]- 7486 Sep, [facility] [place] [facility] [address] [id number], [place] [address]- 0166 Sep, [facility] [address]00565100[place], [place] [address]- 6306 Sep, [facility] [place] [facility] [address]00565100[place], [place] [address]- 3442 Aug, [facility] [address] [facility] [id number][place] [id number] Aug, [facility] [place] [facility] [address]00565100[place], [place] [address]- 7356 Aug, [facility] [id number], [place] [id number] Jul, [facility] [place] [facility] [address] [facility] [id number], [place] [address]- 1361 Jul, [facility] [address] [facility] [id number][place] [id number] Jul, [facility] [place] [facility] [address] [facility] [id number], [place] [address]- 2306 Jul, [facility] [place] [facility] [address] [id number], [place] [address]- 0424 May, [facility] [place] [facility] [address]00565100[place], [place] [address]- 2546 Apr, [facility] [address] [facility] [id number], [place] [address]- 2546 Apr, [facility] [address] [facility] [id number], [place] [address]- 2546 Mar, [facility] [address] [id number] [place] [id number] Feb, [facility] [address] [id number] [place] [id number] Feb, [facility] [address] [id number] [place] [id number] Feb, [facility] [address] [facility] [id number] [place] [address] 48578- 2546 Feb, [facility] [place] [facility] [address] [id number], [place] [address]- 2546 January, [facility] [address]00565100[place], [place] [address]- 2546 January, [facility] [address] [id number] [place] [id number] Dec, [facility] [address] [id number] [place] [id number] Dec, [facility] [address] [id number][place] [id number] Dec, [facility] [address] [id number][place] [id number] Dec, [facility] [address] [id number] [place] [id number] Dec, [facility] [address] [id number] [place] [id number] Dec, [facility] [address] [facility] [id number], [place] [address]- 2546 Dec, [facility] [place] [facility] [address] [facility] [id number], [place] [address]- 2546 Dec, [facility] [address] [id number][place] [id number] Nov, [facility] [address] [facility] [id number][place] [id number] Nov, [facility] [address] [facility] [id number] [place] [id number] Nov, [facility] [address] [facility] [id number] [place] [address]- 2546 Oct, [facility] [place] [facility] [address] [place] [address]- 2546 Oct, [facility] [place] [facility] [address] [facility] [id number] [place] [address]- 6882 Sep, [facility] [place] [facility] [address] [place] [address]- 8066 Aug, [facility] [address] [place] [address]- 1495 Aug, [facility] [place] [facility] [address] [place] [address]- 5316 Aug, [facility] [place] [facility] [address] [place] [address]- 2088 Aug, [facility] [id number], [place] [id number] Aug, [facility] [address]00565100[place], [place] [address] 5126 Aug, [facility] [place] [facility] [address]00565100[place], [place] [address]- 2546 Jul, [facility] [place] [facility] [address] [facility] [id number], [place] [address] Jul, [facility] [place] [facility] [id number], [place] [address] Jul, [facility] [place] [facility] [address] [facility] [id number], [place] [address] Jul, [facility] [address] [id number] [id number] Jun, [facility] [address] [id number] [place] [id number] Jun, [facility] [place] [facility] [address] [facility] [id number] [place] [address] Jun, [facility] [address] [facility] [id number] [place] [id number] Apr, [facility] [place] [facility] [id number], [place] [address] Apr, [facility] [place] [facility] [address] [facility] [id number] [place] [address] Mar, [facility] [address] [id number] [place] [id number] Feb, [facility] [address] [facility] [id number] [place] [id number] Feb, [facility] [place] [facility] [id number], [place] [address] Feb, [facility] [address] [facility] [id number][place] [id number] Feb, [facility] [place] [facility] [id number], [place] [address] Feb, [facility] [place] [facility] [id number], [place] [address] Feb, [facility] [place] [facility] [id number], [place] [address] Feb, [facility] [place] [facility] [address] [facility] [id number], [place] [address] Feb, [facility] [address] [facility] [id number] [place] [id number] January, [facility] [address] [facility] [id number][place] [id number] Dec, [facility] [place] [facility] [address] [facility] [id number], [place] [address] Dec, [facility] [place] [facility] [address] [facility] [id number], [place] [address] Dec, [facility] [address] [id number] [place] [id number] Dec, [facility] [address] [facility] [id number], [place] [address] Dec, [facility] [address] [id number] [place] [id number] Dec, [facility] [address] [id number] [place] [id number] Nov, [facility] [address] [id number] [place] [id number] Nov, [facility] [address] [id number] [place] [id number] Nov, [facility] [address] [id number] [place] [id number] Nov, [facility] [id number], [place] [address] Oct, [facility] [address] [id number] [place] [id number] Oct, [facility] [address] [id number] [place] [id number] Oct, [facility] [address] [id number] [place] [id number] Oct, [facility] [address] [id number] [place] [id number] Oct, [facility] [address] [id number] [place] [id number] Sep, [facility] [address] [id number] [place] [id number] Sep, [facility] [id number] [place] [address] Sep, [facility] [id number], [place] [address] Sep, [facility] [id number], [place] [address] Sep, [facility] [place] [facility] [address] [id number] [place] [address] Sep, [facility] [place] [facility] [address] [id number] [place] [address] 30 Aug, 2011 [facility] [place] [facility] [address] [id number] [place] [address] Aug, [facility] [place] [facility] [address] [id number] [place] [address] Aug, [facility] [place] [facility] [address] [id number] [place] [address] Aug, [facility] [place] [facility] [address] [id number] [place] [address] Aug, [facility] [place] [facility] [address] [id number] [place] [address] Aug, [facility] [place] [facility] [address] [id number] [place] [address] Aug, [facility] [place] [facility] [address] [id number] [place] [address] Aug, [facility] [place] [facility] [address] [id number] [place] [address] Jun, [facility] [place] [facility] [address] [id number] [place] [address] 27 Jun, 2011 [facility] [place] [facility] [address] [id number] [place] [address] 19 Jun, 2011 [facility] [place] [facility] [address] [id number] [place] [address] 19 Jun, 2011 [facility] [place] [facility] [address] [id number] [place] [address] 14 Jun, 2011 [facility] [place] [facility] [address] [id number] [place] [address] 13 Jun, 2011 [facility] [place] [facility] [address] [id number], [place] [address] Jun, [facility] [place] [address] [facility] [id number], [place] [address] Jun, [facility] [place] [id number], [place] [address] Jun, [facility] [place] [id number], [place] [address] 14 May, 2011 [facility] [place] [address] [facility] [id number], [place] [address] Apr, [facility] [place] [address] [facility] [id number], [place] [address] Feb, [facility], [place] [address] [id number], [place] [address] Dec, [facility], [place] [id number], [place] [address] Aug, [facility] [place] [id number], [place] [address] Aug, [facility] [place] [id number], [place] [address] Aug, [facility] [place] [id number], [place] [address] Aug, [facility] [place] [address] [id number], [place] [address] Jul, [facility], [place] [address] [id number], [place] [address] Jun, [facility] [place] [address] [id number], [place] [address] Jun, IMMUNIZATIONS No Known Immunizations SOCIAL HISTORY Never Assessed [place] [place] VITAL SIGNS MEDICATIONS Unknown [...] Coronary atherosclerosis of unspecified type of vessel, [place] or graft Surgical History section x4 Surgical History CABG x3 Surgical History Left arm-Plate and screws placed Hospitalization History Surgery(s)/Childbirth(s) only
--- OUTSIDE RECORDS SUMMARY | 2019-02-02 13:49 | XMS REPORT ---
Author Author Migration, Doctor Organization [facility] Address Unknown Phone Unavailable Care Team Providers Care Principal Consulting Engineer Name Role Phone Migration, Doctor Unavailable Unavailable PROBLEMS Type Condition ICD9-CM Code JPF70-HQ Code Onset Dates Condition Status SNOMED Code Problem PTSD (post-traumatic stress disorder) F43.10 Active 80550156 Problem Mixed hyperlipidemia E78.2 Active 377300784 Problem Bipolar 1 disorder F31.9 Active 071318788 Problem Obesity (BMI 30-39.9) E66.9 Active 880648291 Problem COPD mixed type J44.9 Active 02369770 Problem Sleep apnea in adult G47.30 Active 24112301 Problem Chronic obstructive pulmonary disease with acute exacerbation J44.1 Active 768270094 Problem Panic disorder F41.0 Active 638580629 Problem MESERET (generalized anxiety disorder) F41.1 Active 84568822 Problem Body mass index (BMI) of 45.0-49.9 in adult Z68.42 Active 187676215 Problem Essential hypertension I10 Active 52457455 Problem Morbid (severe) obesity due to excess calories E66.01 Active 94973206756391 Problem Coronary artery disease involving coronary bypass graft of buckland heart without angina pectoris I25.810 Active 605126307 Problem Mood disorder F39 Active 27491999 Problem Coronary artery disease involving buckland coronary artery of buckland heart without angina pectoris I25.10 Active 9966721013339 Problem Claudication I73.9 Active 198013486 Problem Bipolar disorder, in partial remission, most recent episode depressed F31.75 Active 65187405 ALLERGIES No Information ENCOUNTERS Encounter Location Date Diagnosis [facility] [address] [facility] [id number] [address] Dec, [facility] [address] [id number], [place] [address] Nov, [facility] [address] [id number], [place] [address] Nov, Morbid obesity E66.01 ; Bipolar disorder, in partial remission, most recent episode depressed F31.75 ; Panic disorder F41.0 and MESERET ( generalized anxiety disorder) F41.1 [place] [address] [place] [address] 50210- 9696 Oct, Bipolar disorder, in partial remission, most recent episode depressed F31.75 ; MESERET (generalized anxiety disorder) F41.1 ; Panic disorder F41.0 and BMI 40.0-44.9, adult Z68.41 [place] [address] [place] [address] 61011- 0400 Sep, Bipolar disorder, in partial remission, most recent episode depressed F31.75 [place] [id number] [place] [address] 51505- 6743 Sep, [place] [id number] [place] [address] 29802- 3746 Aug, Bipolar disorder, in partial remission, most recent episode depressed F31.75 [place] [address] [place] [address] 05457- 5654 Aug, Bipolar 1 disorder, depressed F31.9 ; PTSD (post-traumatic stress disorder) F43.10 and Panic attacks F41.0 [place] [address] [place] [address] 40560- 8126 Aug, Bipolar disorder, in partial remission, most recent episode depressed F31.75 [place] [address] [place] [address] 27351- 8338 Jul, Bipolar disorder, in partial remission, most recent episode depressed F31.75 ; MESERET (generalized anxiety disorder) F41.1 ; Panic disorder F41.0 and BMI 45.0-49.9, adult Z68.42 [place] [address] [place] [address] 56133- 5306 16 Jul, 2018 Bipolar disorder, in partial remission, most recent episode depressed F31.75 [facility] [id number] [address] May, Hidradenitis suppurativa L73.2 and BMI 45.0-49.9, adult Z68.42 [place] [id number] [place] [address] 60115- 6236 May, Bipolar 1 disorder, depressed F31.9 ; PTSD (post-traumatic stress disorder) F43.10 and Panic attacks F41.0 [place] [address] [address]- 0775 May, Bipolar disorder, in partial remission, most recent episode depressed F31.75 ; MESERET (generalized anxiety disorder) F41.1 ; Panic disorder F41.0 and BMI 45.0-49.9, adult Z68.42 [place] [id number] [place] [address] 63837- 8104 Apr, Bipolar disorder, in partial remission, most recent episode depressed F31.75 ; MESERET (generalized anxiety disorder) F41.1 ; Panic disorder F41.0 and BMI 45.0-49.9, adult Z68.42 [place] [id number] [place] [address] [id number] Apr, [place] [id number] [place] [address] 07397- 7320 Apr, Bipolar 1 disorder, depressed F31.9 [place] [id number] [place] [address] 68804- 9358 Mar, Bipolar disorder, in partial remission, most recent episode depressed F31.75 ; MESERET (generalized anxiety disorder) F41.1 ; Panic disorder F41.0 and BMI 45.0-49.9, adult Z68.42 [address] [place] [address] [id number] Mar, High risk medication use Z79.899 and Mixed hyperlipidemia E78.2 [place] [id number] [place] [address] [id number] Mar, COPD mixed type J44.9 ; Essential hypertension I10 ; Sleep apnea in adult G47.30 ; Mixed hyperlipidemia E78.2 ; Morbid (severe) obesity due to excess calories E66.01 ; Body mass index (BMI) of 45.0-49.9 in adult Z68.42 ; Tobacco abuse Z72.0 ; Tobacco abuse counseling Z71.6 and BMI 45.0-49.9, adult Z68.42 [facility] [address] [address] Feb, Bipolar disorder, in partial remission, most recent episode depressed F31.75 ; MESERET (generalized anxiety disorder) F41.1 ; Panic disorder F41.0 and BMI 45.0-49.9, adult Z68.42 [place] [id number] [place] [address] 03181- 1830 Feb, Bipolar 1 disorder, depressed F31.9 ; PTSD (post-traumatic stress disorder) F43.10 and Panic attacks F41.0 [place] [id number] [place] [address] 66908- 7459 Feb, High risk medication use Z79.899 [place] [id number] [place] [address] 00754- 1918 January, High risk medication use Z79.899 ; Bipolar disorder, in partial remission, most recent episode depressed F31.75 ; MESERET (generalized anxiety disorder) F41.1 ; Panic disorder F41.0 and BMI 45.0-49.9, adult Z68.42 [place] [id number] [place] [address] 23854- 2716 January, Bipolar 1 disorder, depressed F31.9 ; PTSD (post-traumatic stress disorder) F43.10 and Panic attacks F41.0 [place] [id number] [place] [address] 58258- 6098 January, Bipolar 1 disorder, depressed F31.9 ; PTSD (post-traumatic stress disorder) F43.10 and Panic attacks F41.0 [place] [address] [place] [address] 39436- 4798 Dec, BMI 45.0-49.9, adult Z68.42 ; Bipolar disorder, in partial remission, most recent episode depressed F31.75 ; MESERET (generalized anxiety disorder) F41.1 and Panic disorder F41.0 [place] [address] [place] [address] 35834- 2851 Dec, Bipolar 1 disorder, depressed F31.9 ; PTSD (post-traumatic stress disorder) F43.10 and Panic attacks F41.0 [place] [address] [place] [address] 66396- 7939 Nov, Bipolar disorder, in partial remission, most recent episode depressed F31.75 ; MESERET (generalized anxiety disorder) F41.1 and Panic disorder F41.0 [place] [address] [place] [address] 23157- 8922 Nov, [place] [id number] [place] [address] 45081- 4620 Nov, [place] [id number] [place] [address] 42464- 2242 Oct, BMI 45.0-49.9, adult Z68.42 ; Bipolar disorder, in partial remission, most recent episode depressed F31.75 ; MESERET (generalized anxiety disorder) F41.1 and Panic disorder F41.0 [place] [address] [facility] [address] [id number] [id number] Oct, BMI 45.0-49.9, adult Z68.42 ; Coronary artery disease involving buckland coronary artery of buck[place] heart without angina pectoris I25.10 ; Hx of CABG Z95.1 ; Dyspnea on exertion R06.09 ; Essential hypertension I10 ; Mixed hyperlipidemia E78.2 ; Claudication I73.9 and Tobacco use Z72.0 [facility] [id number] [place] [address] [id number] 15 Oct, 2017 BMI 45.0-49.9, adult Z68.42 ; Bipolar 1 disorder, depressed F31.9 and Abscess L02.91 [place] [address] [place] [address] 27557- 7021 Oct, Bipolar 1 disorder, depressed F31.9 ; PTSD (post-traumatic stress disorder) F43.10 and Panic attacks F41.0 [place] [id number] [place] [address] 31147- 8986 Sep, BMI 40.0-44.9, adult Z68.41 ; Mood disorder F39 ; MESERET ( generalized anxiety disorder) F41.1 and Panic disorder F41.0 [place] [id number] [place] [address] 09919- 5297 Sep, BMI 40.0-44.9, adult Z68.41 [place] [address] 02726- 9081 Sep, Bipolar 1 disorder, depressed F31.9 ; PTSD (post-traumatic stress disorder) F43.10 and Panic attacks F41.0 [place] [address] 57945- 0657 Aug, BMI 40.0-44.9, adult Z68.41 ; Mood disorder F39 ; MESERET ( generalized anxiety disorder) F41.1 and Panic disorder F41.0 [place] [address] [place] [id number] [place] [address] 26123- 7160 Aug, Bipolar 1 disorder, depressed F31.9 ; PTSD (post-traumatic stress disorder) F43.10 and Panic attacks F41.0 [place] [id number] [place] [address] [id number] Aug, [place] [id number] [place] [address] [id number] Aug, COPD mixed type J44.9 [place] [address] [place] [address] [id number] [place] [address] 63831- 2773 Aug, [place] [address] [place] [address] [id number] [place] [address] 86012- 8193 Jul, PTSD (post-traumatic stress disorder) F43.10 ; Panic disorder F41.0 ; MESERET (generalized anxiety disorder) F41.1 ; Mood disorder F39 and BMI 40.0-44.9, adult Z68.41 [facility] [address] [facility] [id number] [place] [address] Jul, Bipolar 1 disorder, depressed F31.9 ; PTSD (post-traumatic stress disorder) F43.10 and Panic attacks F41.0 [facility] [id number] [id number] Jul, Bipolar 1 disorder, depressed F31.9 [facility] [address] [address] Jul, Anxiety F41.9 ; COPD mixed type J44.9 ; Essential hypertension I10 ; Bipolar 1 disorder F31.9 ; High risk medication use Z79.899 ; BMI 40.0-44.9, adult Z68.41 and Coronary artery disease involving coronary bypass graft of buck[place] heart without angina pectoris I25.810 [place] [id number] [id number] Jul, Chronic obstructive pulmonary disease with acute exacerbation J44.1 and Acute nasopharyngitis J00 [facility] [address] [place] [id number] [address] Jul, Anxiety F41.9 ; Mixed hyperlipidemia E78.2 and Bipolar 1 disorder F31.9 [facility] [address] [id number] [place] [address] Jun Bipolar 1 disorder F31.9 [facility] [address] [id number] [place] [address] Jun [facility] [address] [facility] [id number][place] [id number] Jun, Anxiety F41.9 ; Elevated blood sugar R73.9 ; Mixed hyperlipidemia E78.2 ; COPD mixed type J44.9 ; Essential hypertension I10 ; Bipolar 1 disorder F31.9 ; Coronary artery disease involving coronary bypass graft of buck[place] heart without angina pectoris I25.810 ; High risk medication use Z79.899 ; Controlled substance agreement signed Z79.899 ; Elevated fasting glucose R73.01 ; Encounter for immunization Z23 and BMI 40.0-44.9, adult Z68.41 [facility] [address] [id number] [id number] Jun, Elevated blood sugar R73.9 [facility] [address] [place] [address] [id number] Jun, [facility] [id number], [place] [id number] Jun, Bipolar 1 disorder F31.9 ; Obesity (BMI 30-39.9) E66.9 ; Coronary artery disease involving coronary bypass graft of buck[place] heart without angina pectoris I25.810 and Essential hypertension I10 [address] [address] Jun, Coronary artery disease involving coronary bypass graft of buck[place] heart without angina pectoris I25.810 ; Bipolar 1 disorder F31.9 ; Anxiety F41.9 ; Essential hypertension I10 ; COPD mixed type J44.9 and Mixed hyperlipidemia E78.[address] [place] [address] [id number] May, Severe single current episode of major depressive disorder, 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.2 ; Bipolar 1 disorder F31.9 ; Anxiety F41.9 ; PTSD (post -traumatic stress disorder) F43.10 ; Coronary artery disease involving coronary bypass graft of buckland heart without angina pectoris I25.810 ; Sleep apnea in adult G47.30 ; Essential hypertension I10 ; High risk medication use Z79.899 ; Obesity (BMI 30-39.9) E66.9 ; Encounter for therapeutic drug level monitoring Z51.81 and COPD mixed type J44.9 [place] [id number] [id number] May, Severe single current episode of major depressive disorder, 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.2 ; Bipolar 1 disorder F31.9 ; Anxiety F41.9 ; PTSD (post -traumatic stress disorder) F43.10 ; Mixed hyperlipidemia E78.2 ; Coronary artery disease involving coronary bypass graft of buckland heart without angina pectoris I25.810 ; Sleep apnea in adult G47.30 ; Essential hypertension I10 ; High risk medication use Z79.899 ; Controlled substance agreement signed Z79.899 ; Obesity (BMI 30-39.9) E66.9 ; Tobacco abuse Z72.0 ; Tobacco abuse counseling Z71.6 and COPD mixed type J44.9 [facility] [id number] [place] [address] [id number] May, [facility] [id number] [place] [address] 63811- 6196 Dec, [facility] [id number] [place] [address] 79666- 2312 Dec, [facility] [id number] [place] [address] 42265- 8399 May, [facility] [id number] [place] [address] 11534- 0614 May, [facility] [id number] [place] [address] [id number] Dec, [facility] [id number] [place] [address] 36544- 7124 Dec, [facility] [id number], [place] [id number] Dec, [facility] [id number] [place] [address] 53647- 7404 Dec, [facility] [address] [place] [address] 377852- 0349 Dec, [facility] [address] [place] [address] 40108- 6716 Dec, [facility] [address]00565100[place], [place] [address] 2546 Nov, [facility] [id number], [place] [address] Nov, [facility] [address] [id number], [place] [address] Nov, [facility] [id number], [place] [id number] Nov, [facility] [address] [id number], [place] [address]- 0[address] 17 Nov, 2013 [facility] [place] [facility] [address] [facility] [id number], [place] [address]- 1883 Nov, [facility] [place] [facility] [address] [facility] [id number], [place] [address]- 9765 Nov, [facility] [place] [facility] [address] [facility] [id number], [place] [address]- 6713 Nov, [facility] [place] [facility] [address] [facility] [id number], [place] [address]- 9529 Nov, [facility] [place] [facility] [address] [facility] [id number], [place] [address]- 0361 Nov, [facility] [address] [facility] [id number], [place] [address] Nov, [facility] [address] [id number], [place] [address] Oct, [facility] [place] [facility] [address] [facility] [id number], [place] [address]- 6452 Oct, [facility] [address] [facility] [id number][place] [id number] Oct, [facility] [place] [facility] [address] [id number], [place] [address]- 2322 Oct, [facility] [place] [facility] [address] [facility] [id number], [place] [address]- 1536 Oct, [facility] [address] [facility] [id number], [place] [address] Sep, [facility] [place] [facility] [address] [facility] [id number], [place] [address]- 4260 Sep, [facility] [address] [facility] [id number], [place] [address]36 Sep, [facility] [place] [facility] [address] [facility] [id number], [place] [address]- 3888 Sep, [facility] [place] [facility] [address] [facility] [id number], [place] [address]- 6947 Sep, [facility] [place] [facility] [address] [id number] [place] [address]- 0920 Sep, [facility] [place] [facility] [address] [facility] [id number] [address]- 8386 Aug, [facility] [address] [id number] [place] [address] Aug, [facility] [place] [facility] [address] [id number], [place] [address]- 2546 Aug, [facility] [address] [id number] [place] [id number] Jul, [facility] [place] [facility] [address] [id number], [place] [address]- 7206 Jul, [facility] [address] [facility] [id number], [place] [address] Jul, [facility] [place] [facility] [address]005[address]100[place], [place] [address]- 4186 Jul, [facility] [place] [facility] [address] [facility] [id number], [place] [address]- 1951 May, [facility] [place] [facility] [address] [id number], [place] [address]- 9776 Apr, [facility] [place] [facility] [address] [id number], [place] [address]- 3236 Apr, [facility] [place] [facility] [address]00565100[place], [place] [address]- 2546 Mar, [facility] [address] [id number], [place] [address] Feb, [facility] [address] [id number] [place] [address] Feb, [facility] [address] [id number] [place] [address] Feb, [facility] [place] [facility] [address] [facility] [id number], [place] [address]- 2546 Feb, [facility] [place] [facility] [address] [facility] [id number], [place] [address]- 2546 January, [facility] [address] [facility] [id number] [address]- 2547 January, [facility] [address] [id number] [place] [address] Dec, [facility] [address] [id number] [place] [address] Dec, [facility] [address] [id number] [place] [address] Dec, [facility] [address] [id number] [place] [address] Dec, [facility] [address] [id number] [place] [address] Dec, [facility] [address] [id number] [place] [address] Dec, [facility] [address]005[address]100[place], [place] [address]- 2546 Dec, [facility] [address] [id number], [place] [address]- 2546 Dec, [facility] [address] [id number] [place] [address] Nov, [facility] [address] [id number] [place] [id number] Nov, [facility] [address] [id number] [place] [address] Nov, [facility] [address]00565100[place], [place] [address]- 3230 Oct, [facility] [place] [facility] [address] [id number], [place] [address]- 1194 Oct, [facility] [place] [facility] [address]00565100[place], [place] [address] 1983 Sep, [facility] [address]00565100[place], [place] [address]- 8256 Aug, [facility] [place] [facility] [address] [id number], [place] [address]- 2546 Aug, [facility] [place] [facility] [address] [facility] [id number] [place] [address]- 1336 Aug, [facility] [place] [facility] [address] [facility] [id number] [place] [address]- 2546 Aug, [facility] [address] [facility] [id number], [place] [address] Aug, [facility] [place] [facility] [address] [facility] [id number] [place] [address]- 9906 Aug, [facility] [place] [facility] [address] [facility] [id number] [place] [address]- 8106 Jul, [facility] [place] [facility] [address] [facility] [id number] [place] [address]- 6526 Jul, [facility] [place] [facility] [address]00565100[place], [place] [address]- 7826 Jul, [facility] [place] [facility] [address] [facility] [id number], [place] [address]- 2546 Jul, [facility] [address] [facility] [id number], [place] [address] Jun, [facility] [address] [facility] [id number], [place] [address] Jun, [facility] [place] [facility] [address] [facility] [id number], [place] [address]- 2546 Jun, [facility] [address] [facility] [id number], [place] [address] Apr, [facility] [place] [facility] [address] [facility] [id number], [place] [address]- 2546 Apr, [facility] [place] [facility] [address] [facility] [id number], [place] [address]- 2546 Mar, [facility] [address] [id number], [place] [address] Feb, [facility] [address] [facility] [id number], [place] 359[address] Feb, [facility] [place] [facility] [address] [facility] [id number] [place] [address]- 4556 Feb, [facility] [address] [id number] [place] [address] Feb, [facility] [place] [facility] [address] [facility] [id number] [place] [address]- 5956 Feb, [facility] [place] [facility] [address] [facility] [id number] [place] [address] Feb, [facility] [place] [facility] [address] [facility] [id number] [place] [address] Feb, [facility] [place] [facility] [address] [facility] [id number] [place] [address] Feb, [facility] [address] [id number] [place] [id number] January, [facility] [address] [id number] [id number] Dec, [facility] [address] [facility] [id number] [address] Dec, [facility] [place] [facility] [address] [facility] [id number], [place] [address] Dec, [facility] [address] [id number][place] [id number] Dec, [facility] [place] [facility] [address] [facility] [id number] [address] Dec, [facility] [address] [id number][place] [id number] Dec, [facility] [address] [id number] [place] [id number] Nov, [facility] [address] [id number] [place] [id number] Nov, [facility] [address] [id number] [place] [id number] Nov, [facility] [address] [id number] [place] [id number] Nov, [facility] [address] [facility] [id number][place] [address] Oct, [facility] [address] [id number] [place] [id number] Oct, [facility] [address] [id number] [place] [id number] Oct, [facility] [address] [id number] [place] [id number] Oct, [facility] [address] [id number] [place] [id number] Oct, [facility] [address] [id number] [place] [id number] Sep, [facility] [address] [facility] [id number] [place] [id number] Sep, [facility] [id number] [address] Sep, [facility] [place] [facility] [id number] [address] Sep, [facility] [place] [facility] [id number], [place] [address] Sep, [facility] [place] [facility] [id number], [place] [address] Sep, [facility] [place] [facility] [id number], [place] [address] Aug, [facility] [place] [facility] [id number] [address] Aug, [facility] [place] [facility] [id number] [address] Aug, [facility] [place] [facility] [id number] [address] Aug, [facility] [place] [facility] [id number] [address] Aug, [facility] [place] [facility] [address] [id number] [place] [address] Aug, [facility] [place] [facility] [address] [id number] [place] [address] Aug, [facility] [place] [facility] [address] [id number] [place] [address] Aug, [facility] [place] [facility] [address] [id number] [place] [address] Jun, [facility] [place] [facility] [address] [id number] [place] [address] Jun, [facility] [place] [facility] [address] [id number] [place] [address] Jun, [facility] [place] [facility] [address] [id number] [place] [address] Jun, [facility] [place] [facility] [address] [id number] [place] [address] 14 Jun, 2011 [facility] [place] [facility] [address] [id number] [place] [address] 13 Jun, 2011 [facility] [place] [facility] [address] [id number] [place] [address] Jun, [facility] [place] [facility] [address] [id number] [place] [address] Jun, [facility] [place] [facility] [address] [id number] [place] [address] Jun, [facility] [place] [facility] [address] [id number] [place] [address] 14 May, 2011 [facility] [place] [facility] [address] [id number] [place] [address] 10 Apr, 2011 [facility] [place] [facility] [address] [id number] [place] [address] 16 Feb, 2011 [facility] [place] [facility] [address] [id number] [place] [address] Dec, [facility] [id number] [address] Aug, [facility] [id number], [place] [address] Aug, [facility] [id number], [place] [address] Aug, [facility] [id number], [place] [address] Aug, [facility] [id number] [address] Jul, [facility] [id number], [place] [address] Jun, [facility] [id number], [place] [address] Jun, IMMUNIZATIONS No Known Immunizations SOCIAL HISTORY Never Assessed REASON FOR VISIT [facility] [place] CARE VITAL SIGNS MEDICATIONS Unknown [...] History asthma Medical History stroke Medical History seizures-2011 last one, hx of taking Dilantin Medical History sleep apnea Medical History Coronary atherosclerosis of unspecified type of vessel, buckland or graft Surgical History section x4 Surgical History CABG x3 Surgical History Left arm-Plate and screws placed Hospitalization History Surgery(s)/Childbirth(s) only
--- OUTSIDE RECORDS SUMMARY | 2019-02-02 13:49 | XMS REPORT ---
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 Name Role Phone Migration, Doctor Unavailable Unavailable PROBLEMS Type Condition ICD9-CM Code EYY49-BJ Code Onset Dates Condition Status SNOMED Code Problem Mixed hyperlipidemia E78.2 Active 112308819 Problem Obesity (BMI 30-39.9) E66.9 Active 249849365 Problem PTSD (post-traumatic stress disorder) F43.10 Active 12940104 Problem Sleep apnea in adult G47.30 Active 34975851 Problem Bipolar 1 disorder F31.9 Active 282080350 Problem Coronary artery disease involving coronary bypass graft of rosebud heart without angina pectoris I25.810 Active 756270220 Problem COPD mixed type J44.9 Active 43811263 Problem Panic disorder F41.0 Active 397358689 Problem MESERET (generalized anxiety disorder) F41.1 Active 20232101 Problem Mood disorder F39 Active 32328226 Problem Body mass index (BMI) of 45.0-49.9 in adult Z68.42 Active 639983270 Problem Chronic obstructive pulmonary disease with acute exacerbation J44.1 Active 464777237 Problem Cannabis use disorder, mild, abuse F12.10 Active 65169995 Problem Essential hypertension I10 Active 85974572 Problem Coronary artery disease involving rosebud coronary artery of rosebud heart without angina pectoris I25.10 Active 5696400524351 Problem Claudication I73.9 Active 911761599 Problem Bipolar disorder, in partial remission, most recent episode depressed F31.75 Active 29638894 Problem Morbid (severe) obesity due to excess calories E66.01 Active [id number] ALLERGIES No Information ENCOUNTERS Encounter Location Date Diagnosis [facility] [address] [facility] [id number] [address] January, [facility] [address] [facility] [id number] [id number] January, [facility] [address] [facility] [id number], [place] [address] Dec, Bipolar disorder, in partial remission, most recent episode depressed F31.75 ; Panic disorder F41.0 ; MESERET (generalized anxiety disorder) F41.1 and Cannabis use disorder, mild, abuse F12.10 [facility] [id number] [id number] Dec, COPD mixed type J44.9 [facility] [id number] [place] [address] [id number] Dec, Essential hypertension I10 ; COPD mixed type J44.9 and Morbid obesity E66.01 [place] [id number] [place] [address] 43168- 1241 Nov, [place] [id number] [place] [address] 43451- 4195 Nov, Morbid obesity E66.01 ; Bipolar disorder, in partial remission, most recent episode depressed F31.75 ; Panic disorder F41.0 and MESERET ( generalized anxiety disorder) F41.1 [place] [id number] [place] [address] 52804- 7005 Oct, Bipolar disorder, in partial remission, most recent episode depressed F31.75 ; MESERET (generalized anxiety disorder) F41.1 ; Panic disorder F41.0 and BMI 40.0-44.9, adult Z68.41 [place] [address] [place] [address] 87660- 6339 Sep, Bipolar disorder, in partial remission, most recent episode depressed F31.75 [place] [id number] [place] [address] 85465- 2901 Sep, [place] [id number] [place] [address] 94907- 1823 Aug, Bipolar disorder, in partial remission, most recent episode depressed F31.75 [place] [id number] [place] [address] 27581- 8682 Aug, Bipolar 1 disorder, depressed F31.9 ; PTSD (post-traumatic stress disorder) F43.10 and Panic attacks F41.0 [place] [address] [address] 17 Aug, 2018 Bipolar disorder, in partial remission, most recent episode depressed F31.75 [place] [address] [place] [address] 43967- 7111 Jul, Bipolar disorder, in partial remission, most recent episode depressed F31.75 ; MESERET (generalized anxiety disorder) F41.1 ; Panic disorder F41.0 and BMI 45.0-49.9, adult Z68.42 [place] [address] [place] [address] 48416- 6469 16 Jul, 2018 Bipolar disorder, in partial remission, most recent episode depressed F31.75 [facility] [address] [place] [address] [id number] May, Hidradenitis suppurativa L73.2 and BMI 45.0-49.9, adult Z68.42 [place] [id number] [place] [address] 43664- 1220 18 May, 2018 Bipolar 1 disorder, depressed F31.9 ; PTSD (post-traumatic stress disorder) F43.10 and Panic attacks F41.0 [place] [address] [place] [address] 23765- 6270 18 May, 2018 Bipolar disorder, in partial remission, most recent episode depressed F31.75 ; MESERET (generalized anxiety disorder) F41.1 ; Panic disorder F41.0 and BMI 45.0-49.9, adult Z68.42 [place] [address] [place] [address] 99905- 3322 Apr, Bipolar disorder, in partial remission, most recent episode depressed F31.75 ; MESERET (generalized anxiety disorder) F41.1 ; Panic disorder F41.0 and BMI 45.0-49.9, adult Z68.42 [facility] [address] [place] [address] [id number] Apr, [place] [id number] [place] [address] 60740- 8556 Apr, Bipolar 1 disorder, depressed F31.9 [place] [address] [address] Mar, Bipolar disorder, in partial remission, most recent episode depressed F31.75 ; MESERET (generalized anxiety disorder) F41.1 ; Panic disorder F41.0 and BMI 45.0-49.9, adult Z68.42 [facility] [id number] [place] [address] [id number] 16 Mar, 2018 High risk medication use Z79.899 and Mixed hyperlipidemia E78.2 [facility] [address] [place] [address] [phone] Mar, COPD mixed type J44.9 ; Essential hypertension I10 ; Sleep apnea in adult G47.30 ; Mixed hyperlipidemia E78.2 ; Morbid (severe) obesity due to excess calories E66.01 ; Body mass index (BMI) of 45.0-49.9 in adult Z68.42 ; Tobacco abuse Z72.0 ; Tobacco abuse counseling Z71.6 and BMI 45.0-49.9, adult Z68.42 [place] [address] [place] [address] 40508- 3810 Feb, Bipolar disorder, in partial remission, most recent episode depressed F31.75 ; MESERET (generalized anxiety disorder) F41.1 ; Panic disorder F41.0 and BMI 45.0-49.9, adult Z68.42 [place] [address] [place] [address] 79046- 9109 Feb, Bipolar 1 disorder, depressed F31.9 ; PTSD (post-traumatic stress disorder) F43.10 and Panic attacks F41.0 [place] [address] [place] [address] 88937- 8308 Feb, High risk medication use Z79.899 [place] [address] [place] [address] 64715- 6677 January, High risk medication use Z79.899 ; Bipolar disorder, in partial remission, most recent episode depressed F31.75 ; MESERET (generalized anxiety disorder) F41.1 ; Panic disorder F41.0 and BMI 45.0-49.9, adult Z68.42 [place] [id number] [place] [address] 80002- 2136 January, Bipolar 1 disorder, depressed F31.9 ; PTSD (post-traumatic stress disorder) F43.10 and Panic attacks F41.0 [place] [id number] [place] [address] 75565- 4839 January, Bipolar 1 disorder, depressed F31.9 ; PTSD (post-traumatic stress disorder) F43.10 and Panic attacks F41.0 [place] [id number] [place] [address] 39024- 1414 Dec, BMI 45.0-49.9, adult Z68.42 ; Bipolar disorder, in partial remission, most recent episode depressed F31.75 ; EMSERET (generalized anxiety disorder) F41.1 and Panic disorder F41.0 [place] [id number] [place] [address] 35334- 7240 Dec, Bipolar 1 disorder, depressed F31.9 ; PTSD (post-traumatic stress disorder) F43.10 and Panic attacks F41.0 [place] [id number] [place] [address] 30150- 0854 Nov, Bipolar disorder, in partial remission, most recent episode depressed F31.75 ; MESERET (generalized anxiety disorder) F41.1 and Panic disorder F41.0 [place] [address] [place] [address] 52688- 4654 Nov, [place] [id number] [place] [address] 33539- 8434 Nov, [place] [id number] [place] [address] 96654- 9471 Oct, BMI 45.0-49.9, adult Z68.42 ; Bipolar disorder, in partial remission, most recent episode depressed F31.75 ; MESERET (generalized anxiety disorder) F41.1 and Panic disorder F41.[address] [facility] [id number] [place] [id number] 23 Oct, 2017 BMI 45.0-49.9, adult Z68.42 ; Coronary artery disease involving rosebud coronary artery of rosebud heart without angina pectoris I25.10 ; Hx of CABG Z95.1 ; Dyspnea on exertion R06.09 ; Essential hypertension I10 ; Mixed hyperlipidemia E78.2 ; Claudication I73.9 and Tobacco use Z72.0 [facility] [address] [id number] [id number] 15 Oct, 2017 BMI 45.0-49.9, adult Z68.42 ; Bipolar 1 disorder, depressed F31.9 and Abscess L02.[address] [place] [address] 82515- 8524 14 Oct, 2017 Bipolar 1 disorder, depressed F31.9 ; PTSD (post-traumatic stress disorder) F43.10 and Panic attacks F41.0 [address] [place] [address] 68807- 2397 Sep, BMI 40.0-44.9, adult Z68.41 ; Mood disorder F39 ; MESERET ( generalized anxiety disorder) F41.1 and Panic disorder F41.0 [address] [place] [address] 11718- 6955 Sep, BMI 40.0-44.9, adult Z68.41 [place] [address] [place] [address] 64603- 7462 Sep, Bipolar 1 disorder, depressed F31.9 ; PTSD (post-traumatic stress disorder) F43.10 and Panic attacks F41.0 [place] [id number] [place] [address] 71682- 0891 Aug, BMI 40.0-44.9, adult Z68.41 ; Mood disorder F39 ; MESERET ( generalized anxiety disorder) F41.1 and Panic disorder F41.0 [place] [id number] [place] [address] 96707- 3336 Aug, Bipolar 1 disorder, depressed F31.9 ; PTSD (post-traumatic stress disorder) F43.10 and Panic attacks F41.0 [place] [id number] [place] [address] [id number] Aug, [facility] [id number] [place] [address] [phone] Aug, COPD mixed type J44.9 [place] [address] 97114- 4508 Aug, [place] [address] [place] [address] 14059- 1902 Jul, PTSD (post-traumatic stress disorder) F43.10 ; Panic disorder F41.0 ; MESERET (generalized anxiety disorder) F41.1 ; Mood disorder F39 and BMI 40.0-44.9, adult Z68.41 [place] [address] [place] [address] 12465- 4209 Jul, Bipolar 1 disorder, depressed F31.9 ; PTSD (post-traumatic stress disorder) F43.10 and Panic attacks F41.0 [place] [id number] [place] [address] [id number] Jul, Bipolar 1 disorder, depressed F31.9 [address] [place] [address] [id number] Jul, Anxiety F41.9 ; COPD mixed type J44.9 ; Essential hypertension I10 ; Bipolar 1 disorder F31.9 ; High risk medication use Z79.899 ; BMI 40.0-44.9, adult Z68.41 and Coronary artery disease involving coronary bypass graft of rosebud heart without angina pectoris I25.810 [place] [id number] [place] [address] [phone] Jul, Chronic obstructive pulmonary disease with acute exacerbation J44.1 and Acute nasopharyngitis J00 [facility] [address] [place] [address] [id number] Jul, Anxiety F41.9 ; Mixed hyperlipidemia E78.2 and Bipolar 1 disorder F31.9 [facility] [address] [id number] [place] [address] Jun Bipolar 1 disorder F31.9 [facility] [address] [id number] [place] [address] Jun [facility] [address] [place] [address] [id number] [id number] Jun, Anxiety F41.9 ; Elevated blood sugar R73.9 ; Mixed hyperlipidemia E78.2 ; COPD mixed type J44.9 ; Essential hypertension I10 ; Bipolar 1 disorder F31.9 ; Coronary artery disease involving coronary bypass graft of rosebud heart without angina pectoris I25.810 ; High risk medication use Z79.899 ; Controlled substance agreement signed Z79.899 ; Elevated fasting glucose R73.01 ; Encounter for immunization Z23 and BMI 40.0-44.9, adult Z68.41 [facility] [id number] [place] [address] [id number] Jun, Elevated blood sugar R73.9 [facility] [id number] [place] [address] [id number] Jun, [facility] [id number] [place] [address] [id number] Jun, Bipolar 1 disorder F31.9 ; Obesity (BMI 30-39.9) E66.9 ; Coronary artery disease involving coronary bypass graft of rosebud heart without angina pectoris I25.810 and Essential hypertension I10 [facility] [id number] [place] [address] [id number] Jun, Coronary artery disease involving coronary bypass graft of rosebud heart without angina pectoris I25.810 ; Bipolar 1 disorder F31.9 ; Anxiety F41.9 ; Essential hypertension I10 ; COPD mixed type J44.9 and Mixed hyperlipidemia E78.2 [place] [id number] [place] [address] [id number] May, Severe single current episode of major depressive disorder, 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.2 ; Bipolar 1 disorder F31.9 ; Anxiety F41.9 ; PTSD (post -traumatic stress disorder) F43.10 ; Coronary artery disease involving coronary bypass graft of rosebud heart without angina pectoris I25.810 ; Sleep apnea in adult G47.30 ; Essential hypertension I10 ; High risk medication use Z79.899 ; Obesity (BMI 30-39.9) E66.9 ; Encounter for therapeutic drug level monitoring Z51.81 and COPD mixed type J44.9 [facility] [address] [place] [address] [id number] May, Severe single current episode of major depressive disorder, 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.2 ; Bipolar 1 disorder F31.9 ; Anxiety F41.9 ; PTSD (post -traumatic stress disorder) F43.10 ; Mixed hyperlipidemia E78.2 ; Coronary artery disease involving coronary bypass graft of rosebud heart without angina pectoris I25.810 ; Sleep apnea in adult G47.30 ; Essential hypertension I10 ; High risk medication use Z79.899 ; Controlled substance agreement signed Z79.899 ; Obesity (BMI 30-39.9) E66.9 ; Tobacco abuse Z72.0 ; Tobacco abuse counseling Z71.6 and COPD mixed type J44.9 [facility] [id number] [place] [address] [id number] May, [facility] [id number] [place] [address] [id number]- 2777 Dec, [facility] [id number] [place] [address] [id number]- 4768 Dec, [facility] [id number] [place] [address] [id number]- 9990 May, [facility] [id number] [place] [address] 36177- 4467 May, [facility] [address] [place] [address] [id number] Dec, [facility] [id number] [place] [address] 062599- 1929 Dec, [facility] [address] [place] [address] [id number] Dec, [facility] [address] 33687- 3696 Dec, [facility] [place] [facility] [address] [id number] [place] [address]- 2547 Dec, [facility] [place] [facility] [address] [id number] [place] [address]- 2546 Dec, [facility] [place] [facility] [address] [facility] [id number] [place] [address]- 2546 Nov, [facility] [address] [id number] [place] [id number] Nov, [facility] [address] [id number] [place] [id number] Nov, [facility] [address] [id number] [place] [id number] Nov, [facility] [place] [facility] [address] [facility] [id number] [place] [address]- 2546 Nov, [facility] [place] [facility] [address] [place] [id number] [address]- 2546 Nov, [facility] [place] [facility] [address] [facility] [id number] [place] [address]- 2546 Nov, [facility] [place] [facility] [address] [facility] [id number] [place] [address] 2546 15 Nov, 2013 [facility] [place] [facility] [address] [place] [address] [id number] [place] [address]- 2546 Nov, [facility] [place] [facility] [address] [facility] [id number], [place] [address]- 2546 Nov, [facility] [address] [id number] [place] [id number] Nov, [facility] [address] [id number] [place] [id number] Oct, [facility] [place] [facility] [address] [id number] [place] [address]- 2546 Oct, [facility] [address] [id number] [place] [id number] Oct, [facility] [place] [facility] [address] [facility] [id number], [place] [address]- 4496 Oct, [facility] [address] [facility] [id number], [place] [address]- 1726 Oct, [facility] [address] [facility] [address] [id number][place] [id number] Sep, [facility] [address] [facility] [id number], [place] [address]- 7236 Sep, [facility] [address] [id number][place] [id number] Sep, [facility] [place] [facility] [address] [facility] [id number], [place] [address]- 6356 Sep, [facility] [place] [facility] [address] [id number], [place] [address]- 6626 Sep, [facility] [address], [place] [address]- 6945 Sep, [facility] [place] [facility] [address], [place] [address]- 3661 Aug, [facility] [address] [id number], [place] [id number] Aug, [facility] [place] [facility] [address], [place] [address]- 5176 Aug, [facility] [id number], [place] [id number] Jul, [facility] [place] [facility] [address] [facility] [id number], [place] [address]- 0034 Jul, [facility] [address] [id number][place] [id number] Jul, [facility] [place] [facility] [address] [facility] [id number], [place] [address]- 0706 Jul, [facility] [place] [facility] [address] [id number], [place] [address]- 3854 May, [facility] [place] [facility] [address], [place] [address]- 2546 Apr, [facility] [address] [facility] [id number], [place] [address]- 2546 Apr, [facility] [address] [facility] [id number], [place] [address]- 2546 Mar, [facility] [address] [id number] [place] [id number] Feb, [facility] [address] [id number] [place] [id number] Feb, [facility] [address] [id number] [place] [id number] Feb, [facility] [address] [facility] [id number] [place] [address] 50450- 2546 Feb, [facility] [place] [facility] [address] [id number], [place] [address]- 2546 January, [facility] [address]100[place], [place] [address]- 2546 January, [facility] [address] [id number] [place] [id number] Dec, [facility] [address] [id number] [place] [id number] Dec, [facility] [address] [id number][place] [id number] Dec, [facility] [address] [id number][place] [id number] Dec, [facility] [address] [id number] [place] [id number] Dec, [facility] [address] [id number] [place] [id number] Dec, [facility] [address] [facility] [id number], [place] [address]- 2546 Dec, [facility] [place] [facility] [address] [facility] [id number], [place] [address]- 2546 Dec, [facility] [address] [id number], [place] [id number] Nov, [facility] [address] [id number], [place] [id number] Nov, [facility] [address] [id number] [place] [id number] Nov, [facility] [address] [facility] [id number] [place] [address]- 2546 Oct, [facility] [place] [facility] [address] [address]- 2546 Oct, [facility] [place] [facility] [address] [facility] [id number] [place] [address]- 5030 Sep, [facility] [place] [facility] [address] [place] [address]- 7016 Aug, [facility] [id number] [address]- 0778 Aug, [facility] [place] [facility] [id number] [place] [address]- 7976 Aug, [facility] [place] [facility] [id number] [place] [address]- 6470 Aug, [facility] [id number], [place] [id number] Aug, [facility] [address]00565[address], [place] [address]- 1136 Aug, [facility] [place] [facility] [address], [place] [address]- 2546 Jul, [facility] [place] [facility] [address] [facility] [id number], [place] [address]- 2546 Jul, [facility] [place] [facility] [id number], [place] [address] Jul, [facility] [place] [facility] [address] [facility] [id number], [place] [address] Jul, [facility] [address] [id number] [id number] Jun, [facility] [address] [id number] [place] [id number] Jun, [facility] [place] [facility] [address] [facility] [id number] [place] [address] Jun, [facility] [address] [facility] [id number] [place] [id number] Apr, [facility] [place] [facility] [id number], [place] [address] Apr, [facility] [place] [facility] [address] [facility] [id number] [place] [address] Mar, [facility] [address] [id number] [place] [id number] Feb, [facility] [address] [facility] [id number] [place] [id number] Feb, [facility] [place] [facility] [id number], [place] [address] Feb, [facility] [address] [facility] [id number][place] [id number] Feb, [facility] [place] [facility] [id number], [place] [address] Feb, [facility] [place] [facility] [id number], [place] [address] Feb, [facility] [place] [facility] [id number], [place] [address] Feb, [facility] [place] [facility] [address] [facility] [id number], [place] [address] Feb, [facility] [address] [facility] [id number] [place] [id number] January, [facility] [address] [facility] [id number][place] [id number] Dec, [facility] [place] [facility] [address] [facility] [id number], [place] [address] Dec, [facility] [place] [facility] [address] [facility] [id number], [place] [address] Dec, [facility] [address] [id number] [place] [id number] Dec, [facility] [address] [facility] [id number], [place] [address] Dec, [facility] [address] [id number] [place] [id number] Dec, [facility] [address] [id number] [place] [id number] Nov, [facility] [address] [id number] [place] [id number] Nov, [facility] [address] [id number] [place] [id number] Nov, [facility] [address] [id number] [place] [id number] Nov, [facility] [id number], [place] [address] Oct, [facility] [address] [id number] [place] [id number] Oct, [facility] [address] [id number] [place] [id number] Oct, [facility] [address] [id number] [place] [id number] Oct, [facility] [address] [id number] [place] [id number] Oct, [facility] [address] [id number] [place] [id number] Sep, [facility] [address] [id number] [place] [id number] Sep, [facility] [id number] [place] [address] Sep, [facility] [id number], [place] [address] Sep, [facility] [address] [address] Sep, [facility] [place] [facility] [address] [id number] [place] [address] Sep, [facility] [place] [facility] [address] [id number] [place] [address] 30 Aug, 2011 [facility] [place] [facility] [address] [id number] [place] [address] Aug, [facility] [place] [facility] [address] [id number] [place] [address] Aug, [facility] [place] [facility] [address] [id number] [place] [address] Aug, [facility] [place] [facility] [address] [id number] [place] [address] Aug, [facility] [place] [facility] [address] [id number] [place] [address] Aug, [facility] [place] [facility] [address] [id number] [place] [address] Aug, [facility] [place] [facility] [address] [id number] [place] [address] Aug, [facility] [place] [facility] [address] [id number] [place] [address] Jun, [facility] [place] [facility] [address] [id number] [place] [address] 27 Jun, 2011 [facility] [place] [facility] [address] [id number] [place] [address] 19 Jun, 2011 [facility] [place] [facility] [address] [id number] [place] [address] 19 Jun, 2011 [facility] [place] [facility] [address] [id number] [place] [address] 14 Jun, 2011 [facility] [place] [facility] [address] [id number] [place] [address] 13 Jun, 2011 [facility] [place] [facility] [address] [id number], [place] [address] Jun, [facility] [address] [facility] [id number], [place] [address] Jun, [facility] [id number], [place] [address] Jun, [facility] [id number], [place] [address] 14 May, 2011 [facility] [address] [facility] [id number], [place] [address] Apr, [facility] [address] [facility] [id number], [place] [address] Feb, [facility] [id number] [address] Dec, [facility] [id number], [place] [address] Aug, [facility] [id number], [place] [address] Aug, [facility] [id number], [place] [address] Aug, [facility] [id number], [place] [address] Aug, [facility] [id number], [place] [address] Jul, [facility] [id number], [place] [address] Jun, [facility] [id number], [place] [address] Jun, IMMUNIZATIONS No Known Immunizations SOCIAL HISTORY Never Assessed REASON FOR VISIT EMR[place] [place] CARE VITAL SIGNS MEDICATIONS Unknown [...] Coronary atherosclerosis of unspecified type of vessel, rosebud or graft Surgical History section x4 Surgical History CABG x3 Surgical History Left arm-Plate and screws placed Hospitalization History Surgery(s)/Childbirth(s) only
--- OUTSIDE RECORDS SUMMARY | 2019-02-02 13:49 | XMS REPORT ---
Author Author Migration, Doctor Organization [facility] Address Unknown Phone Unavailable Care Team Providers Care [employer] Advisor Name Role Phone Migration, Doctor Unavailable Unavailable PROBLEMS Type Condition ICD9-CM Code PIM60-SA Code Onset Dates Condition Status SNOMED Code Problem Mixed hyperlipidemia E78.2 Active 306097672 Problem Obesity (BMI 30-39.9) E66.9 Active 761366108 Problem PTSD (post-traumatic stress disorder) F43.10 Active 10204857 Problem Sleep apnea in adult G47.30 Active 51224409 Problem Bipolar 1 disorder F31.9 Active 692886567 Problem Coronary artery disease involving coronary bypass graft of venetie ira heart without angina pectoris I25.810 Active 405094367 Problem COPD mixed type J44.9 Active 07397602 Problem Panic disorder F41.0 Active 606606219 Problem MESREET (generalized anxiety disorder) F41.1 Active 72475232 Problem Mood disorder F39 Active 74940009 Problem Body mass index (BMI) of 45.0-49.9 in adult Z68.42 Active 644269930 Problem Chronic obstructive pulmonary disease with acute exacerbation J44.1 Active 009417694 Problem Cannabis use disorder, mild, abuse F12.10 Active 72476014 Problem Essential hypertension I10 Active 50169547 Problem Coronary artery disease involving venetie ira coronary artery of venetie ira heart without angina pectoris I25.10 Active 6920527132589 Problem Claudication I73.9 Active 316786672 Problem Bipolar disorder, in partial remission, most recent episode depressed F31.75 Active 42434788 Problem Morbid (severe) obesity due to excess calories E66.01 Active [id number] ALLERGIES No Information ENCOUNTERS Encounter Location Date Diagnosis [facility] [address] [facility] [id number] [address] January, [facility] [address] [facility] [id number] [id number] January, [facility] [address] [facility] [id number] [address] Dec, Bipolar disorder, in partial remission, most recent episode depressed F31.75 ; Panic disorder F41.0 ; MESERET (generalized anxiety disorder) F41.1 and Cannabis use disorder, mild, abuse F12.10 [facility] [id number] [id number] Dec, COPD mixed type J44.9 [facility] [id number] [place] [id number] Dec, Essential hypertension I10 ; COPD mixed type J44.9 and Morbid obesity E66.01 [facility] [id number] [place] [address] 03276- 7319 Nov, [facility] [id number] [place] [address] 02825- 8450 Nov, Morbid obesity E66.01 ; Bipolar disorder, in partial remission, most recent episode depressed F31.75 ; Panic disorder F41.0 and MESERET ( generalized anxiety disorder) F41.1 [facility] [id number] [place] [address] 29416- 2483 Oct, Bipolar disorder, in partial remission, most recent episode depressed F31.75 ; MESERET (generalized anxiety disorder) F41.1 ; Panic disorder F41.0 and BMI 40.0-44.9, adult Z68.41 [facility] [address] [place] [address] 64557- 8532 Sep, Bipolar disorder, in partial remission, most recent episode depressed F31.75 [facility] [id number] [place] [address] 74909- 4734 Sep, [facility] [id number] [place] [address] 25402- 8967 Aug, Bipolar disorder, in partial remission, most recent episode depressed F31.75 [facility] [id number] [place] [address] 82002- 2514 Aug, Bipolar 1 disorder, depressed F31.9 ; PTSD (post-traumatic stress disorder) F43.10 and Panic attacks F41.0 [facility] [address]00565100[place] [address] 17 Aug, 2018 Bipolar disorder, in partial remission, most recent episode depressed F31.75 [facility] [address] [place] [address] 62545- 7066 Jul, Bipolar disorder, in partial remission, most recent episode depressed F31.75 ; MESERET (generalized anxiety disorder) F41.1 ; Panic disorder F41.0 and BMI 45.0-49.9, adult Z68.42 [facility] [address] [place] [address] 09095- 4968 16 Jul, 2018 Bipolar disorder, in partial remission, most recent episode depressed F31.75 [facility] [address] [place] [address] [phone] May, Hidradenitis suppurativa L73.2 and BMI 45.0-49.9, adult Z68.42 [facility] [id number] [place] [address] 66258- 2992 18 May, 2018 Bipolar 1 disorder, depressed F31.9 ; PTSD (post-traumatic stress disorder) F43.10 and Panic attacks F41.0 [place] [address] [place] [address] 51106- 3629 18 May, 2018 Bipolar disorder, in partial remission, most recent episode depressed F31.75 ; MESERET (generalized anxiety disorder) F41.1 ; Panic disorder F41.0 and BMI 45.0-49.9, adult Z68.42 [place] [address] [place] [address] 84096- 2639 Apr, Bipolar disorder, in partial remission, most recent episode depressed F31.75 ; MESERET (generalized anxiety disorder) F41.1 ; Panic disorder F41.0 and BMI 45.0-49.9, adult Z68.42 [facility] [address] [place] [address] [phone] Apr, [facility] [id number] [place] [address] 28911- 3729 Apr, Bipolar 1 disorder, depressed F31.9 [facility] [address]00565100[place] [address] Mar, Bipolar disorder, in partial remission, most recent episode depressed F31.75 ; MESERET (generalized anxiety disorder) F41.1 ; Panic disorder F41.0 and BMI 45.0-49.9, adult Z68.42 [facility] [id number] [place] [address] [id number] 16 Mar, 2018 High risk medication use Z79.899 and Mixed hyperlipidemia E78.2 [facility] [address] [place] [address] [phone] Mar, COPD mixed type J44.9 ; Essential hypertension I10 ; Sleep apnea in adult G47.30 ; Mixed hyperlipidemia E78.2 ; Morbid (severe) obesity due to excess calories E66.01 ; Body mass index (BMI) of 45.0-49.9 in adult Z68.42 ; Tobacco abuse Z72.0 ; Tobacco abuse counseling Z71.6 and BMI 45.0-49.9, adult Z68.42 [facility] [address] [place] [address] 17756- 9589 Feb, Bipolar disorder, in partial remission, most recent episode depressed F31.75 ; MESERET (generalized anxiety disorder) F41.1 ; Panic disorder F41.0 and BMI 45.0-49.9, adult Z68.42 [facility] [address] [place] [address] 29606- 6313 Feb, Bipolar 1 disorder, depressed F31.9 ; PTSD (post-traumatic stress disorder) F43.10 and Panic attacks F41.0 [facility] [address] [place] [address] 01544- 2538 Feb, High risk medication use Z79.899 [place] [address] [place] [address] 13480- 8429 January, High risk medication use Z79.899 ; Bipolar disorder, in partial remission, most recent episode depressed F31.75 ; MESERET (generalized anxiety disorder) F41.1 ; Panic disorder F41.0 and BMI 45.0-49.9, adult Z68.42 [facility] [place] [id number] [place] [address] 49596- 9977 January, Bipolar 1 disorder, depressed F31.9 ; PTSD (post-traumatic stress disorder) F43.10 and Panic attacks F41.0 [facility] [facility] [id number] [place] [address] 94989- 6472 January, Bipolar 1 disorder, depressed F31.9 ; PTSD (post-traumatic stress disorder) F43.10 and Panic attacks F41.0 [facility] [address] [place] [address] 28868- 3813 Dec, BMI 45.0-49.9, adult Z68.42 ; Bipolar disorder, in partial remission, most recent episode depressed F31.75 ; MESERET (generalized anxiety disorder) F41.1 and Panic disorder F41.0 [facility] [id number] [place] [address] 28809- 6203 Dec, Bipolar 1 disorder, depressed F31.9 ; PTSD (post-traumatic stress disorder) F43.10 and Panic attacks F41.0 [place] [id number] [place] [address] 16265- 6769 Nov, Bipolar disorder, in partial remission, most recent episode depressed F31.75 ; MESERET (generalized anxiety disorder) F41.1 and Panic disorder F41.0 [place] [address] [place] [address] 30091- 0529 Nov, [facility] [facility] [id number] [place] [address] 33684- 9834 Nov, [facility] [id number] [place] [address] 37182- 7386 Oct, BMI 45.0-49.9, adult Z68.42 ; Bipolar disorder, in partial remission, most recent episode depressed F31.75 ; MESERET (generalized anxiety disorder) F41.1 and Panic disorder F41.0 [facility] [address] [id number] [id number] 23 Oct, 2017 BMI 45.0-49.9, adult Z68.42 ; Coronary artery disease involving venetie ira coronary artery of venetie ira heart without angina pectoris I25.10 ; Hx of CABG Z95.1 ; Dyspnea on exertion R06.09 ; Essential hypertension I10 ; Mixed hyperlipidemia E78.2 ; Claudication I73.9 and Tobacco use Z72.0 [facility] [address] [facility] [id number][place] [id number] 15 Oct, 2017 BMI 45.0-49.9, adult Z68.42 ; Bipolar 1 disorder, depressed F31.9 and Abscess L02.[address] [place] [address] 33450- 6667 14 Oct, 2017 Bipolar 1 disorder, depressed F31.9 ; PTSD (post-traumatic stress disorder) F43.10 and Panic attacks F41.0 [address] [place] [address] 98542- 3701 Sep, BMI 40.0-44.9, adult Z68.41 ; Mood disorder F39 ; MESERET ( generalized anxiety disorder) F41.1 and Panic disorder F41.0 [address] [place] [address] 51602- 6153 Sep, BMI 40.0-44.9, adult Z68.41 [facility] [address] [place] [address] 32396- 3247 Sep, Bipolar 1 disorder, depressed F31.9 ; PTSD (post-traumatic stress disorder) F43.10 and Panic attacks F41.0 [place] [id number] [place] [address] 79310- 4427 Aug, BMI 40.0-44.9, adult Z68.41 ; Mood disorder F39 ; MESERET ( generalized anxiety disorder) F41.1 and Panic disorder F41.0 [place] [id number] [place] [address] 36110- 9136 Aug, Bipolar 1 disorder, depressed F31.9 ; PTSD (post-traumatic stress disorder) F43.10 and Panic attacks F41.0 [place] [id number] [place] [address] [phone] Aug, [facility] [id number] [place] [address] [phone] Aug, COPD mixed type J44.9 [facility] [address] 71566- 8684 Aug, [place] [id number] [place] [address] 89251- 4528 Jul, PTSD (post-traumatic stress disorder) F43.10 ; Panic disorder F41.0 ; MESERET (generalized anxiety disorder) F41.1 ; Mood disorder F39 and BMI 40.0-44.9, adult Z68.41 [place] [address] [place] [address] 91738- 2190 Jul, Bipolar 1 disorder, depressed F31.9 ; PTSD (post-traumatic stress disorder) F43.10 and Panic attacks F41.0 [place] [address] [place] [address] [phone] Jul, Bipolar 1 disorder, depressed F31.9 [address] [place] [address] [phone] Jul, Anxiety F41.9 ; COPD mixed type J44.9 ; Essential hypertension I10 ; Bipolar 1 disorder F31.9 ; High risk medication use Z79.899 ; BMI 40.0-44.9, adult Z68.41 and Coronary artery disease involving coronary bypass graft of venetie ira heart without angina pectoris I25.810 [place] [address] [place] [address] [phone] Jul, Chronic obstructive pulmonary disease with acute exacerbation J44.1 and Acute nasopharyngitis J00 [facility] [address] [place] [address] [id number] Jul, Anxiety F41.9 ; Mixed hyperlipidemia E78.2 and Bipolar 1 disorder F31.9 [facility] [address] [id number] [place] [address] Jun Bipolar 1 disorder F31.9 [facility] [address] [id number] [place] [address] Jun [facility] [address] [place] [address] [id number] [id number] Jun, Anxiety F41.9 ; Elevated blood sugar R73.9 ; Mixed hyperlipidemia E78.2 ; COPD mixed type J44.9 ; Essential hypertension I10 ; Bipolar 1 disorder F31.9 ; Coronary artery disease involving coronary bypass graft of venetie ira heart without angina pectoris I25.810 ; High risk medication use Z79.899 ; Controlled substance agreement signed Z79.899 ; Elevated fasting glucose R73.01 ; Encounter for immunization Z23 and BMI 40.0-44.9, adult Z68.41 [facility] [id number] [place] [address] [id number] Jun, Elevated blood sugar R73.9 [facility] [id number] [place] [address] [id number] Jun, [facility] [address] [id number] [place] [address] [phone] Jun, Bipolar 1 disorder F31.9 ; Obesity (BMI 30-39.9) E66.9 ; Coronary artery disease involving coronary bypass graft of venetie ira heart without angina pectoris I25.810 and Essential hypertension I10 [facility] [id number] [place] [address] [phone] Jun, Coronary artery disease involving coronary bypass graft of venetie ira heart without angina pectoris I25.810 ; Bipolar 1 disorder F31.9 ; Anxiety F41.9 ; Essential hypertension I10 ; COPD mixed type J44.9 and Mixed hyperlipidemia E78.2 [place] [address] [place] [address] [phone] May, Severe single current episode of major depressive disorder, 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.2 ; Bipolar 1 disorder F31.9 ; Anxiety F41.9 ; PTSD (post -traumatic stress disorder) F43.10 ; Coronary artery disease involving coronary bypass graft of venetie ira heart without angina pectoris I25.810 ; Sleep apnea in adult G47.30 ; Essential hypertension I10 ; High risk medication use Z79.899 ; Obesity (BMI 30-39.9) E66.9 ; Encounter for therapeutic drug level monitoring Z51.81 and COPD mixed type J44.9 [facility] [address] [place] [address] [phone] May, Severe single current episode of major depressive disorder, 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.2 ; Bipolar 1 disorder F31.9 ; Anxiety F41.9 ; PTSD (post -traumatic stress disorder) F43.10 ; Mixed hyperlipidemia E78.2 ; Coronary artery disease involving coronary bypass graft of venetie ira heart without angina pectoris I25.810 ; Sleep apnea in adult G47.30 ; Essential hypertension I10 ; High risk medication use Z79.899 ; Controlled substance agreement signed Z79.899 ; Obesity (BMI 30-39.9) E66.9 ; Tobacco abuse Z72.0 ; Tobacco abuse counseling Z71.6 and COPD mixed type J44.9 [facility] [id number] [place] [address] [phone] May, [facility] [id number] [place] [address] [phone] Dec, [facility] [id number] [place] [address] [phone] [phone] Dec, [facility] [id number] [place] [address] [phone] May, [facility] [id number] [place] [address] 48852- 6597 May, [facility] [address] [place] [address] [phone] Dec, [facility] [id number] [place] [address] 110243- 5969 Dec, [facility] [address] [place] [address] [id number] Dec, [facility] [address] 43376- 3106 Dec, [facility] [place] [facility] [address] [id number] [place] [address]- 2541 Dec, [facility] [place] [facility] [address] [id number] [place] [address]- 2546 Dec, [facility] [place] [facility] [address] [facility] [id number] [place] [address]- 2546 Nov, [facility] [address] [id number] [place] [phone] Nov, [facility] [address] [id number] [place] [phone] Nov, [facility] [address] [id number] [place] [phone] Nov, [facility] [place] [facility] [address] [facility] [id number] [place] [address]- 2546 Nov, [facility] [place] [facility] [address] [place] [address] [id number] [place] [address]- 2546 Nov, [facility] [place] [facility] [address] [facility] [id number] [place] [address]- 2546 Nov, [facility] [place] [facility] [address] [facility] [id number] [place] [address] 2546 15 Nov, 2013 [facility] [place] [facility] [address] [place] [address] [id number] [place] [address]- 2546 Nov, [facility] [place] [facility] [address] [facility] [id number], [place] [address]- 2546 Nov, [facility] [address] [id number] [place] [phone] Nov, [facility] [address] [id number] [place] [id number] Oct, [facility] [place] [facility] [address] [id number] [place] [address]- 2546 Oct, [facility] [address] [id number] [place] [phone] Oct, [facility] [place] [facility] [address] [facility] [id number], [place] [address]- 5806 Oct, [facility] [address] [facility] [id number], [place] [address]- 8896 Oct, [facility] [address] [facility] [id number][place] [phone] Sep, [facility] [address] [facility] [id number] [address]- 1546 Sep, [facility] [address] [facility] [id number][place] [phone] Sep, [facility] [place] [facility] [address] [facility] [id number] [address]- 8626 Sep, [facility] [place] [facility] [address] [id number] [address]- 5696 Sep, [facility] [address]00565100[place] [address]- 3304 Sep, [facility] [place] [facility] [address]00565100[place] [address]- 1397 Aug, [facility] [address] [facility] [id number][place] [phone] Aug, [facility] [place] [facility] [address]00565100[place] [address]- 7056 Aug, [facility] [id number], [place] [id number] Jul, [facility] [place] [facility] [address] [facility] [id number], [place] [address]- 6810 Jul, [facility] [address] [facility] [id number][place] [id number] Jul, [facility] [place] [facility] [address] [facility] [id number] [address]- 0556 Jul, [facility] [place] [facility] [address] [id number] [address]- 7217 May, [facility] [place] [facility] [address]00565100[place] [address]- 2546 Apr, [facility] [address] [facility] [id number] [address]- 2546 Apr, [facility] [address] [facility] [id number], [place] [address]- 2546 Mar, [facility] [address] [id number] [place] [id number] Feb, [facility] [address] [id number] [place] [id number] Feb, [facility] [address] [id number] [place] [phone] Feb, [facility] [address] [facility] [id number] [place] [address] 31220- 2546 Feb, [facility] [place] [facility] [address] [id number] [address]- 2546 January, [facility] [address]00565100[place], [place] [address]- 2546 January, [facility] [address] [id number] [place] [id number] Dec, [facility] [address] [id number] [place] [id number] Dec, [facility] [address] [id number][place] [id number] Dec, [facility] [address] [id number][place] [address] Dec, [facility] [address] [id number] [place] [id number] Dec, [facility] [address] [id number] [place] [id number] Dec, [facility] [address] [facility] [id number], [place] [address]- 2546 Dec, [facility] [place] [facility] [address] [facility] [id number], [place] [address]- 2546 Dec, [facility] [address] [id number], [place] [phone] Nov, [facility] [address] [facility] [id number][place] [id number] Nov, [facility] [address] [facility] [id number] [place] [id number] Nov, [facility] [address] [facility] [id number] [place] [address]- 2546 Oct, [facility] [place] [facility] [address] [place] [address]- 2546 Oct, [facility] [place] [facility] [address] [facility] [id number] [place] [address]- 1289 Sep, [facility] [place] [facility] [address] [place] [address]- 5096 Aug, [facility] [address]65[address] [place] [address]- 4278 Aug, [facility] [place] [facility] [address] [place] [address]- 0276 Aug, [facility] [place] [facility] [address] [place] [address]- 3274 Aug, [facility] [id number], [place] [id number] Aug, [facility] [address]00565100[place] [address]- 1276 Aug, [facility] [place] [facility] [address]00565100[place] [address]- 2546 Jul, [facility] [place] [facility] [address] [facility] [id number] [address]- 2546 Jul, [facility] [place] [facility] [address]00565100[place] [address]- 2546 Jul, [facility] [place] [facility] [address] [facility] [id number] [address] Jul, [facility] [address] [id number] [id number] Jun, [facility] [address] [id number] [place] [id number] Jun, [facility] [place] [facility] [address] [facility] [id number] [place] [address] Jun, [facility] [address] [facility] [id number] [place] [id number] Apr, [facility] [place] [facility] [id number] [address] Apr, [facility] [place] [facility] [address] [facility] [id number] [place] [address] Mar, [facility] [address] [id number] [place] [id number] Feb, [facility] [address] [facility] [id number] [place] [id number] Feb, [facility] [place] [facility] [id number] [address] Feb, [facility] [address] [facility] [id number] [id number] Feb, [facility] [place] [facility] [id number] [address] Feb, [facility] [place] [facility] [id number] [address] Feb, [facility] [place] [facility] [id number] [address] Feb, [facility] [place] [facility] [address] [facility] [id number], [place] [address] Feb, [facility] [address] [facility] [id number] [place] [id number] January, [facility] [address] [facility] [id number][place] [id number] Dec, [facility] [place] [facility] [address] [facility] [id number], [place] [address] Dec, [facility] [place] [facility] [address] [facility] [id number], [place] [address] Dec, [facility] [address] [id number] [place] [id number] Dec, [facility] [address] [facility] [id number], [place] [address] Dec, [facility] [address] [id number] [place] [id number] Dec, [facility] [address] [id number] [place] [id number] Nov, [facility] [address] [id number] [place] [id number] Nov, [facility] [address] [id number] [place] [id number] Nov, [facility] [address] [id number] [place] [id number] Nov, [facility] [id number] [address] Oct, [facility] [address] [id number] [place] [id number] Oct, [facility] [address] [id number] [place] [id number] Oct, [facility] [address] [id number] [place] [id number] Oct, [facility] [address] [id number] [place] [id number] Oct, [facility] [address] [id number] [place] [id number] Sep, [facility] [address] [id number] [place] [id number] Sep, [facility] [id number] [place] [address] Sep, [facility] [id number] [address] Sep, [facility] [id number] [address] Sep, [facility] [place] [facility] [address] [id number] [place] [address] Sep, [facility] [place] [facility] [address] [id number] [place] [address] 30 Aug, 2011 [facility] [place] [facility] [address] [id number] [place] [address] Aug, [facility] [place] [facility] [address] [id number] [place] [address] Aug, [facility] [place] [facility] [address] [id number] [place] [address] Aug, [facility] [place] [facility] [address] [id number] [place] [address] Aug, [facility] [place] [facility] [address] [id number] [place] [address] Aug, [facility] [place] [facility] [address] [id number] [place] [address] Aug, [facility] [place] [facility] [address] [id number] [place] [address] Aug, [facility] [place] [facility] [address] [id number] [place] [address] Jun, [facility] [place] [facility] [address] [id number] [place] [address] 27 Jun, 2011 [facility] [place] [facility] [address] [id number] [place] [address] 19 Jun, 2011 [facility] [place] [facility] [address] [id number] [place] [address] 19 Jun, 2011 [facility] [place] [facility] [address] [id number] [place] [address] 14 Jun, 2011 [facility] [place] [facility] [address] [id number] [place] [address] 13 Jun, 2011 [facility] [place] [facility] [address] [id number] [address] Jun, [facility] [address] [facility] [id number] [address] Jun, [facility] [id number] [address] Jun, [facility] [id number] [address] 14 May, 2011 [facility] [address] [facility] [id number] [address] Apr, [facility] [address] [facility] [id number] [address] Feb, [facility] [id number] [address] Dec, [facility] [id number] [address] Aug, [facility] [id number], [place] [address] Aug, [facility] [id number], [place] [address] Aug, [facility] [id number] [address] Aug, [facility] [address] [id number] [address] Jul, [facility] [id number], [place] [address] Jun, [facility] [address] [id number], [place] [address] Jun, IMMUNIZATIONS No Known Immunizations SOCIAL HISTORY Never Assessed [place]ASON FOR [place]IT [place] [place] VITAL SIGNS MEDICATIONS Unknown [...] Coronary atherosclerosis of unspecified type of vessel, venetie ira or graft Surgical History section x4 Surgical History CABG x3 Surgical History Left arm-Plate and screws placed Hospitalization History Surgery(s)/Childbirth(s) only
--- OUTSIDE RECORDS SUMMARY | 2019-02-02 13:50 | XMS REPORT ---
Author Author KEVON BLACKMON [facility] Address [address] [place] [address] Care Team Providers Care Maintenance Shop Clerk Name Role Phone KEVON BLACKMON Unavailable PROBLEMS Type Condition ICD9-CM Code [id number] Code Onset Dates Condition Status SNOMED Code Problem Chronic obstructive pulmonary disease with acute exacerbation J44.1 Active 208909809 Problem MESERET (generalized anxiety disorder) F41.1 Active 61378120 Problem Panic disorder F41.0 Active 521281965 Problem Morbid (severe) obesity due to excess calories E66.01 Active 23036130463907 Problem Body mass index (BMI) of 45.0-49.9 in adult Z68.42 Active 935445070 Problem Coronary artery disease involving [place] coronary artery of savoonga heart without angina pectoris I25.10 Active 3827398933637 Problem Mood disorder F39 Active 19112790 Problem Bipolar disorder, in partial remission, most recent episode depressed F31.75 Active 53033178 Problem Claudication I73.9 Active 676746921 Problem Mixed hyperlipidemia E78.2 Active 218435268 Problem PTSD (post-traumatic stress disorder) F43.10 Active 10317444 Problem Sleep apnea in adult G47.30 Active 43657241 Problem COPD mixed type J44.9 Active 73319092 Problem Obesity (BMI 30-39.9) E66.9 Active 520593699 Problem Coronary artery disease involving coronary bypass graft of savoonga heart without angina pectoris I25.810 Active 287296396 Problem Bipolar 1 disorder F31.9 Active 073271912 Problem Essential hypertension I10 Active 70008765 ALLERGIES No Information ENCOUNTERS Encounter Location Date Diagnosis [facility] [id number] [address] Sep, [facility] [id number] [address] Aug, [facility] [address] [address] Aug, Bipolar disorder, in partial remission, most recent episode depressed F31.75 [id number] [place] [address] 24084- 3523 Aug, Bipolar 1 disorder, depressed F31.9 ; PTSD (post-traumatic stress disorder) F43.10 and Panic attacks F41.0 [address] [place] [address] 38803- 3306 Aug, Bipolar disorder, in partial remission, most recent episode depressed F31.75 [address] [place] [address] 60456- 4205 Jul, Bipolar disorder, in partial remission, most recent episode depressed F31.75 ; MESERET (generalized anxiety disorder) F41.1 ; Panic disorder F41.0 and BMI 45.0-49.9, adult Z68.42 [address] [place] [address] 27782- 4880 Jul, Bipolar disorder, in partial remission, most recent episode depressed F31.75 [address] [id number][place] [id number] May, Hidradenitis suppurativa L73.2 and BMI 45.0-49.9, adult Z68.42 [address] [place] [id number] [place] [address] 54773- 9260 May, Bipolar 1 disorder, depressed F31.9 ; PTSD (post-traumatic stress disorder) F43.10 and Panic attacks F41.0 [address] [place] [id number] [address] May, Bipolar disorder, in partial remission, most recent episode depressed F31.75 ; MESERET (generalized anxiety disorder) F41.1 ; Panic disorder F41.0 and BMI 45.0-49.9, adult Z68.42 [address] [place] [place] [address] 11806- 3196 Apr, Bipolar disorder, in partial remission, most recent episode depressed F31.75 ; MESERET (generalized anxiety disorder) F41.1 ; Panic disorder F41.0 and BMI 45.0-49.9, adult Z68.42 [facility] [id number][place] [id number] Apr, [facility] [address] [address] 8[address] Apr, Bipolar 1 disorder, depressed F31.9 [address] [id number] [place] [address] 46320- 0288 Mar, Bipolar disorder, in partial remission, most recent episode depressed F31.75 ; MESERET (generalized anxiety disorder) F41.1 ; Panic disorder F41.0 and BMI 45.0-49.9, adult Z68.42 [facility] [id number][place] [address] Mar, High risk medication use Z79.899 and Mixed hyperlipidemia E78.2 [facility] [address] [place] [address] [id number] Mar, COPD mixed type J44.9 ; Essential hypertension I10 ; Sleep apnea in adult G47.30 ; Mixed hyperlipidemia E78.2 ; Morbid (severe) obesity due to excess calories E66.01 ; Body mass index (BMI) of 45.0-49.9 in adult Z68.42 ; Tobacco abuse Z72.0 ; Tobacco abuse counseling Z71.6 and BMI 45.0-49.9, adult Z68.42 [address] [place] [address] 85897- 9310 Feb, Bipolar disorder, in partial remission, most recent episode depressed F31.75 ; MESERET (generalized anxiety disorder) F41.1 ; Panic disorder F41.0 and BMI 45.0-49.9, adult Z68.42 [facility] [address]100[place] [address] Feb, Bipolar 1 disorder, depressed F31.9 ; PTSD (post-traumatic stress disorder) F43.10 and Panic attacks F41.0 [address] [address]- 9667 Feb, High risk medication use Z79.899 [address] [place] [id number] [place] [address] 88053- 9644 January, High risk medication use Z79.899 ; Bipolar disorder, in partial remission, most recent episode depressed F31.75 ; MESERET (generalized anxiety disorder) F41.1 ; Panic disorder F41.0 and BMI 45.0-49.9, adult Z68.42 [address] [place] [address] [place] [address] 65832- 7695 January, Bipolar 1 disorder, depressed F31.9 ; PTSD (post-traumatic stress disorder) F43.10 and Panic attacks F41.0 [place] [id number] [place] [address] 60030- 4709 January, Bipolar 1 disorder, depressed F31.9 ; PTSD (post-traumatic stress disorder) F43.10 and Panic attacks F41.0 [address] [place] [address] [place] [address] 13470- 9707 Dec, BMI 45.0-49.9, adult Z68.42 ; Bipolar disorder, in partial remission, most recent episode depressed F31.75 ; MESERET (generalized anxiety disorder) F41.1 and Panic disorder F41.0 [address] [address] [place] [address] 12492- 9067 Dec, Bipolar 1 disorder, depressed F31.9 ; PTSD (post-traumatic stress disorder) F43.10 and Panic attacks F41.0 [place] [address] [place] [address] 87535- 2050 Nov, Bipolar disorder, in partial remission, most recent episode depressed F31.75 ; MESERET (generalized anxiety disorder) F41.1 and Panic disorder F41.0 [address] [address] [place] [address] 61955- 9460 Nov, [facility] [id number] [address]- 46[address] Nov, [place] [address] [place] [address] 19721- 2514 Oct, BMI 45.0-49.9, adult Z68.42 ; Bipolar disorder, in partial remission, most recent episode depressed F31.75 ; MESERET (generalized anxiety disorder) F41.1 and Panic disorder F41.[address] [id number] [id number] Oct, BMI 45.0-49.9, adult Z68.42 ; Coronary artery disease involving sav[place] coronary artery of savoonga heart without angina pectoris I25.10 ; Hx of CABG Z95.1 ; Dyspnea on exertion R06.09 ; Essential hypertension I10 ; Mixed hyperlipidemia E78.2 ; Claudication I73.9 and Tobacco use Z72.0 [facility] [address] [id number] [id number] 15 Oct, 2017 BMI 45.0-49.9, adult Z68.42 ; Bipolar 1 disorder, depressed F31.9 and Abscess L02.91 [place] [address] [place] [address] 60548- 8108 14 Oct, 2017 Bipolar 1 disorder, depressed F31.9 ; PTSD (post-traumatic stress disorder) F43.10 and Panic attacks F41.0 [place] [id number] [place] [address] 47846- 3954 Sep, BMI 40.0-44.9, adult Z68.41 ; Mood disorder F39 ; MESERET ( generalized anxiety disorder) F41.1 and Panic disorder F41.0 [place] [address] [place] [address] 48200- 4699 Sep, BMI 40.0-44.9, adult Z68.41 [place] [id number] [place] [address] 94471- 8250 Sep, Bipolar 1 disorder, depressed F31.9 ; PTSD (post-traumatic stress disorder) F43.10 and Panic attacks F41.0 [facility] [id number] [place] [address] 78436- 6564 Aug, BMI 40.0-44.9, adult Z68.41 ; Mood disorder F39 ; MESERET ( generalized anxiety disorder) F41.1 and Panic disorder F41.0 [place] [id number] [place] [address] 78392- 1482 Aug, Bipolar 1 disorder, depressed F31.9 ; PTSD (post-traumatic stress disorder) F43.10 and Panic attacks F41.0 [facility] [id number] [place] [address] [id number] Aug, [facility] [address] [id number] Aug, COPD mixed type J44.9 [place] [id number] [place] [address] 22565- 0588 Aug, [place] [id number] [place] [address] 29008- 9260 Jul, PTSD (post-traumatic stress disorder) F43.10 ; Panic disorder F41.0 ; MESERET (generalized anxiety disorder) F41.1 ; Mood disorder F39 and BMI 40.0-44.9, adult Z68.41 [place] [id number] [place] [address] 18240- 4700 Jul, Bipolar 1 disorder, depressed F31.9 ; PTSD (post-traumatic stress disorder) F43.10 and Panic attacks F41.0 [facility] [address] [place] [address] [id number] Jul, Bipolar 1 disorder, depressed F31.9 [facility] [id number] [place] [address] [id number] Jul, Anxiety F41.9 ; COPD mixed type J44.9 ; Essential hypertension I10 ; Bipolar 1 disorder F31.9 ; High risk medication use Z79.899 ; BMI 40.0-44.9, adult Z68.41 and Coronary artery disease involving coronary bypass graft of savoonga heart without angina pectoris I25.810 [id number] [id number] Jul, Chronic obstructive pulmonary disease with acute exacerbation J44.1 and Acute nasopharyngitis [address] [id number] Jul, Anxiety F41.9 ; Mixed hyperlipidemia E78.2 and Bipolar 1 disorder F31.9 [facility] [address] [id number] [place] [address] Jun Bipolar 1 disorder F31.9 [facility] [address] [id number] [place] [address] Jun [id number] [place] [address] [id number] Jun, Anxiety F41.9 ; Elevated blood sugar R73.9 ; Mixed hyperlipidemia E78.2 ; COPD mixed type J44.9 ; Essential hypertension I10 ; Bipolar 1 disorder F31.9 ; Coronary artery disease involving coronary bypass graft of sav[place]onga heart without angina pectoris I25.810 ; High risk medication use Z79.899 ; Controlled substance agreement signed Z79.899 ; Elevated fasting glucose R73.01 ; Encounter for immunization Z23 and BMI 40.0-44.9, adult Z68.41 [address] [place] [address] [id number] Jun, Elevated blood sugar R73.9 [address] [place] [address] [id number] Jun, [id number] [place] [address] [id number] Jun, Bipolar 1 disorder F31.9 ; Obesity (BMI 30-39.9) E66.9 ; Coronary artery disease involving coronary bypass graft of sav[place]a heart without angina pectoris I25.810 and Essential hypertension I10 [address] [place] [address] [id number] Jun, Coronary artery disease involving coronary bypass graft of savoonga heart without angina pectoris I25.810 ; Bipolar 1 disorder F31.9 ; Anxiety F41.9 ; Essential hypertension I10 ; COPD mixed type J44.9 and Mixed hyperlipidemia E78.2 [address] [id number] May, Severe single current episode of major depressive disorder, 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.2 ; Bipolar 1 disorder F31.9 ; Anxiety F41.9 ; PTSD (post -traumatic stress disorder) F43.10 ; Coronary artery disease involving coronary bypass graft of savoonga heart without angina pectoris I25.810 ; Sleep apnea in adult G47.30 ; Essential hypertension I10 ; High risk medication use Z79.899 ; Obesity (BMI 30-39.9) E66.9 ; Encounter for therapeutic drug level monitoring Z51.81 and COPD mixed type J44.9 [address] [place] [address] [id number] May, Severe single current episode of major depressive disorder, 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.2 ; Bipolar 1 disorder F31.9 ; Anxiety F41.9 ; PTSD (post -traumatic stress disorder) F43.10 ; Mixed hyperlipidemia E78.2 ; Coronary artery disease involving coronary bypass graft of sav[place]onga heart without angina pectoris I25.810 ; Sleep apnea in adult G47.30 ; Essential hypertension I10 ; High risk medication use Z79.899 ; Controlled substance agreement signed Z79.899 ; Obesity (BMI 30-39.9) E66.9 ; Tobacco abuse Z72.0 ; Tobacco abuse counseling Z71.6 and COPD mixed type J44.9 [id number] [id number] May, [facility] [id number] [place] [address] 53016- 8996 Dec, [facility] [id number] [place] [address] 13393- 2316 Dec, [facility] [id number] [place] [address] 78367- 4632 May, [facility] [id number] [place] [address] [id number]- 4591 May, [id number] [id number] Dec, [facility] [place] [facility] [address] [id number] [place] [address]- 5[address] Dec, [facility] [address] [facility] [id number][place] [id number] Dec, [facility] [place] [facility] [address] [facility] [id number] [place] [address] 2546 Dec, [facility] [place] [facility] [address] [facility] [id number] [place] [address]- 9876 Dec, [facility] [place] [facility] [address] [facility] [id number] [place] [address]- 4286 Dec, [facility] [place] [facility] [address] [facility] [id number] [place] [address]- 9506 Nov, [facility] [address] [id number][place] [id number] Nov, [facility] [address] [id number][place] [id number] Nov, [facility] [address] [facility] [id number] [place] [id number] Nov, [facility] [place] [facility] [address] [facility] [id number] [place] [address]- 0576 Nov, [facility] [place] [facility] [address] [facility] [id number] [place] [address]- 7246 Nov, [facility] [place] [facility] [address] [facility] [id number] [place] [address]- 7406 17 Nov, 2013 [facility] [place] [facility] [address] [facility] [id number] [address]- 6313 15 Nov, 2013 [facility] [place] [facility] [address] [facility] [id number] [place] [address]- 4564 14 Nov, 2013 [facility] [place] [facility] [address] [facility] [id number] [place] [address]- 0866 Nov, [facility] [address] [facility] [id number][place] [id number] Nov, [facility] [address] [facility] [id number] [place] [id number] Oct, [facility] [place] [facility] [address] [facility] [id number] [place] [address]- 2546 Oct, [facility] [address] [facility] [id number] [place] [id number] Oct, [facility] [place] [facility] [address] [facility] [id number] [place] [address]- 2546 Oct, [facility] [place] [facility] [address] [facility] [id number] [place] [address]- 2546 Oct, [facility] [address] [facility] [id number] [place] [id number] Sep, [facility] [place] [facility] [id number] [address]- 2546 Sep, [facility] [id number], [place] [id number] Sep, [facility] [place] [facility] [address] [facility] [id number] [place] [address]- 2546 Sep, [facility] [place] [facility] [id number] [address]- 3046 Sep, [facility] [place] [facility] [id number] [address]- 3296 Sep, [facility] [place] [facility] [id number] [address]- 2546 Aug, [facility] [address] [facility] [id number][place] [id number] Aug, [facility] [place] [facility] [address] [facility] [id number] [address]- 2546 Aug, [facility] [address] [facility] [id number][place] [id number] Jul, [facility] [place] [facility] [id number] [place] [address]- 2546 Jul, [facility] [address] [facility] [id number][place] [id number] Jul, [facility] [address] [facility] [id number] [place] [address]- 7776 Jul, [facility] [place] [facility] [id number] [address]- 9160 May, [facility] [address] [facility] [id number] [place] [address]- 6359 Apr, [facility] [place] [facility] [address] [facility] [id number] [place] [address]- 5745 Apr, [facility] [address] [facility] [id number] [place] [address]- 7607 Mar, [facility] [address] [id number][place] [id number] Feb, [facility] [address] [id number], [place] [id number] Feb, [facility] [address] [id number], [place] 339[address] Feb, [facility] [place] [facility] [address] [facility] [id number] [place] [address]- 2368 Feb, [facility] [place] [facility] [id number] [address]- 4607 January, [facility] [place] [facility] [id number] [address]- 1406 January, [facility] [address] [id number], [place] [id number] Dec, [facility] [address] [id number] [place] [id number] Dec, [facility] [address] [id number] [place] [id number] Dec, [facility] [address] [id number] [place] [address] Dec, [facility] [address] [id number] [place] [id number] Dec, [facility] [address] [id number], [place] 708144131 Dec, [facility] [address] [facility] [id number] [place] [address]- 2546 Dec, [facility] [place] [facility] [address] [facility] [id number] [place] [address]- 2546 Dec, [facility] [address] [facility] [id number] [place] [id number] Nov, [facility] [address] [facility] [id number], [place] [id number] Nov, [facility] [address] [facility] [id number] [place] [id number] Nov, [facility] [place] [facility] [address] [facility] [id number] [place] [address]- 1406 Oct, [facility] [place] [facility] [address]100[place] [address]- 9016 Oct, [facility] [place] [facility] [address] [facility] [id number] [place] [address]- 4117 Sep, [facility] [place] [facility] [id number] 7962 Aug, [facility] [place] [facility] [address]100[place] [address]- 5975 Aug, [facility] [place] [facility] [address] [address]- 2081 Aug, [facility] [place] [facility] [address] [facility] [id number] [place] [address]- 7242 Aug, [facility] [address] [facility] [id number], [place] 544443275 Aug, [facility] [place] [facility] [address] [facility] [id number] [place] [address]- 2326 Aug, [facility] [place] [facility] [address] [facility] [id number] [place] [address]- 1416 Jul, [facility] [place] [facility] [address]- 1732 Jul, [facility] [place] [facility] [address] [facility] [id number] [place] [address]- 0907 Jul, [facility] [place] [facility] [address] [facility] [id number] [place] [address]- 5356 Jul, [facility] [address] [id number] [place] [id number] Jun, [facility] [address] [id number] [place] [id number] Jun, [facility] [place] [facility] [address] [id number] [place] [address]- 8785 Jun, [facility] [address] [id number] [place] [id number] Apr, [facility] [place] [facility] [address] [facility] [id number] [place] [address]- 9884 Apr, [facility] [place] [facility] [address] [facility] [id number] [place] [address]- 8841 Mar, [facility] [address] [id number], [place] [id number] Feb, [facility] [address] [facility] [id number] [place] [id number] Feb, [facility] [place] [facility] [address] [facility] [id number] [place] [address]- 9007 Feb, [facility] [address] [facility] [id number][place] [id number] Feb, [facility] [place] [facility] [address] [facility] [id number] [place] [address]- 3911 Feb, [facility] [place] [facility] [address] [facility] [id number] [place] [address]- 4647 Feb, [facility] [place] [facility] [address] [facility] [id number] [place] [address]- 3956 Feb, [facility] [place] [facility] [address] [facility] [id number] [place] [address]- 7797 Feb, [facility] [address] [id number] [place] [id number] January, [facility] [address] [id number] [place] [id number] Dec, [facility] [address] [facility] [id number] [place] [address] 2546 Dec, [facility] [address] [facility] [id number] [place] [address]- 2546 Dec, [facility] [address] [id number] [place] [id number] Dec, [facility] [address] [facility] [id number] [place] [address]- 0626 Dec, [facility] [address] [id number] [place] [id number] Dec, [facility] [address] [id number] [place] [id number] Nov, [facility] [address] [id number] [place] [id number] Nov, [facility] [address] [id number] [place] [id number] Nov, [facility] [address] [id number] [place] [id number] Nov, [facility] [address] [id number] [address] Oct, [facility] [address] [id number] [place] [id number] Oct, [facility] [address] [id number] [place] [id number] Oct, [facility] [address] [id number] [place] [id number] Oct, [facility] [address] [id number] [place] [id number] Oct, [facility] [address] [id number] [place] [id number] Sep, [facility] [address] [id number] [place] [id number] Sep, [facility] [address] [id number] [place] [address] Sep, [facility] [place] [facility] [address] [id number] [place] [address] Sep, [facility] [place] [facility] [address] [id number] [place] [address] Sep, [facility] [place] [facility] [address] [id number] [place] [address] Sep, [facility] [address] [id number] [place] [address] Aug, [facility] [place] [facility] [address] [id number] [place] [address] Aug, [facility] [address] [id number] [place] [address] Aug, [facility] [address] [id number] [address] Aug, [facility] [place] [facility] [address] [id number] [place] [address] Aug, [facility] [address] [facility] [id number] [address] Aug, [facility] [place] [facility] [address] [facility] [id number] [place] [address] Aug, [facility] [place] [facility] [address] [id number] [address] Aug, [facility] [place] [facility] [address] [id number] [place] [address] Jun, [facility] [place] [facility] [address] [id number] [place] [address] Jun, [facility] [place] [facility] [address] [facility] [id number] [address] Jun, [facility] [place] [facility] [address] [id number] [address] 19 Jun, 2011 [facility] [place] [facility] [address] [id number] [place] [address] 14 Jun, 2011 [facility] [place] [facility] [address] [id number] [place] [address] 13 Jun, 2011 [facility] [place] [facility] [address] [id number] [place] [address] 12 Jun, 2011 [facility] [place] [facility] [address] [id number] [place] [id number] 12 Jun, 2011 [facility] [place] [facility] [address] [id number] [place] [address] 12 Jun, 2011 [facility] [place] [facility] [address] [id number] [place] [address] 14 May, 2011 [facility] [place] [facility] [address] [facility] [id number] [place] [address] 10 Apr, 2011 [facility] [place] [facility] [address] [id number] [place] [address] 16 Feb, 2011 [facility] [place] [facility] [address] [facility] [id number] [place] [address] 20 Dec, 2010 [facility] [place] [facility] [address] [facility] [id number] [place] [address] 28 Aug, 2010 [facility] [place] [facility] [address] [id number] [place] [address] 28 Aug, 2010 [facility] [place] [facility] [address] [id number] [place] [address] 15 Aug, 2010 [facility] [place] [facility] [address] [id number] [place] [address] Aug, [facility] [place] [facility] [address] [facility] [id number] [place] [address] 05 Jul, 2010 [facility] [place] [facility] [address] [facility] [id number] [place] [address] 27 Jun, 2010 [facility] [place] [facility] [address] [facility] [id number] [place] [address] Jun, IMMUNIZATIONS No Known Immunizations SOCIAL HISTORY Never Assessed REASON FOR VISIT refills PLAN OF CARE VITAL SIGNS MEDICATIONS Medication Instructions Dosage Frequency Start Date End Date Duration Status Alprazolam 0.5 MG Orally Three times a day as needed for anxeity 1 tablet 30 days Active Celexa 10 mg Orally Once a day 1 tablet 24h 30 day(s) Active [place] Carbonate 300 MG Orally daily 2 capsules in morning and one at night 24h 30 days Active Trazodone HCl 100 MG Orally at night as needed for sleep 0.5 -1 tablet 30 days Active RESULTS No Results PROCEDURES No Known procedures [...] Coronary atherosclerosis of unspecified type of vessel, [place] or graft Surgical History section x4 Surgical History CABG x3 Surgical History Left arm-Plate and screws placed Hospitalization History Surgery(s)/Childbirth(s) only
--- OUTSIDE RECORDS SUMMARY | 2019-02-02 13:50 | XMS REPORT ---
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 Name Role Phone KEVON BLACKMON Unavailable PROBLEMS Type Condition ICD9-CM Code HAX96-EB Code Onset Dates Condition Status SNOMED Code Problem Chronic obstructive pulmonary disease with acute exacerbation J44.1 Active 875794102 Problem MESERET (generalized anxiety disorder) F41.1 Active 15477612 Problem Panic disorder F41.0 Active 807211866 Problem Morbid (severe) obesity due to excess calories E66.01 Active 92099186299267 Problem Body mass index (BMI) of 45.0-49.9 in adult Z68.42 Active 359537849 Problem Coronary artery disease involving andreafski coronary artery of andreafski heart without angina pectoris I25.10 Active 0338016293611 Problem Mood disorder F39 Active 73562552 Problem Bipolar disorder, in partial remission, most recent episode depressed F31.75 Active 57022148 Problem Claudication I73.9 Active 580373462 Problem Mixed hyperlipidemia E78.2 Active 608105053 Problem PTSD (post-traumatic stress disorder) F43.10 Active 69801005 Problem Sleep apnea in adult G47.30 Active 92993693 Problem COPD mixed type J44.9 Active 04873690 Problem Obesity (BMI 30-39.9) E66.9 Active 706237624 Problem Coronary artery disease involving coronary bypass graft of andreafski heart without angina pectoris I25.810 Active 361029288 Problem Bipolar 1 disorder F31.9 Active 265757671 Problem Essential hypertension I10 Active 90506045 ALLERGIES No Information ENCOUNTERS Encounter Location Date Diagnosis [facility] [address] [id number] [address] Aug, [facility] [address] [id number] [address] Aug, [facility] [address], [place] [address] Aug, Bipolar disorder, in partial remission, most recent episode depressed F31.75 [id number] [place] [address] 69366- 3828 Jul, Bipolar disorder, in partial remission, most recent episode depressed F31.75 ; MESERET (generalized anxiety disorder) F41.1 ; Panic disorder F41.0 and BMI 45.0-49.9, adult Z68.42 [id number] [place] [address] 49567- 7279 Jul, Bipolar disorder, in partial remission, most recent episode depressed F31.75 [id number] [place] [address] [id number] May, Hidradenitis suppurativa L73.2 and BMI 45.0-49.9, adult Z68.42 [id number] [place] [address] 98570- 7650 May, Bipolar 1 disorder, depressed F31.9 ; PTSD (post-traumatic stress disorder) F43.10 and Panic attacks F41.0 [id number] [place] [address] 09588- 5163 May, Bipolar disorder, in partial remission, most recent episode depressed F31.75 ; MESERET (generalized anxiety disorder) F41.1 ; Panic disorder F41.0 and BMI 45.0-49.9, adult Z68.42 [id number] [place] [address] 41868- 7979 Apr, Bipolar disorder, in partial remission, most recent episode depressed F31.75 ; MESERET (generalized anxiety disorder) F41.1 ; Panic disorder F41.0 and BMI 45.0-49.9, adult Z68.42 [facility] [address] [place] [address] [id number] Apr, [id number] [place] [address] 58289- 8710 Apr, Bipolar 1 disorder, depressed F31.9 [facility] [address] [address] Mar, Bipolar disorder, in partial remission, most recent episode depressed F31.75 ; MESERET (generalized anxiety disorder) F41.1 ; Panic disorder F41.0 and BMI 45.0-49.9, adult Z68.42 [facility] [id number] [id number] Mar, High risk medication use Z79.899 and Mixed hyperlipidemia E78.2 [facility] [id number][place] [id number] Mar, COPD mixed type J44.9 ; Essential hypertension I10 ; Sleep apnea in adult G47.30 ; Mixed hyperlipidemia E78.2 ; Morbid (severe) obesity due to excess calories E66.01 ; Body mass index (BMI) of 45.0-49.9 in adult Z68.42 ; Tobacco abuse Z72.0 ; Tobacco abuse counseling Z71.6 and BMI 45.0-49.9, adult Z68.42 [id number] [place] [address] 35738- 9754 Feb, Bipolar disorder, in partial remission, most recent episode depressed F31.75 ; MESERET (generalized anxiety disorder) F41.1 ; Panic disorder F41.0 and BMI 45.0-49.9, adult Z68.42 [address] [place] [address] 36036- 0391 Feb, Bipolar 1 disorder, depressed F31.9 ; PTSD (post-traumatic stress disorder) F43.10 and Panic attacks F41.0 [id number] [place] [address] 95164- 0842 Feb, High risk medication use Z79.899 [address] [place] [address] 93456- 1779 January, High risk medication use Z79.899 ; Bipolar disorder, in partial remission, most recent episode depressed F31.75 ; MESERET (generalized anxiety disorder) F41.1 ; Panic disorder F41.0 and BMI 45.0-49.9, adult Z68.42 [facility] [id number] [place] [address] 14641- 1985 January, Bipolar 1 disorder, depressed F31.9 ; PTSD (post-traumatic stress disorder) F43.10 and Panic attacks F41.0 [id number] [place] [address] 42219- 3310 January, Bipolar 1 disorder, depressed F31.9 ; PTSD (post-traumatic stress disorder) F43.10 and Panic attacks F41.0 [id number] [place] [address] 47429- 3080 Dec, BMI 45.0-49.9, adult Z68.42 ; Bipolar disorder, in partial remission, most recent episode depressed F31.75 ; MESERET (generalized anxiety disorder) F41.1 and Panic disorder F41.0 [id number] [place] [address] 81895- 1204 Dec, Bipolar 1 disorder, depressed F31.9 ; PTSD (post-traumatic stress disorder) F43.10 and Panic attacks F41.0 [id number] [place] [address] 06675- 0779 Nov, Bipolar disorder, in partial remission, most recent episode depressed F31.75 ; MESERET (generalized anxiety disorder) F41.1 and Panic disorder F41.0 [facility] [id number] [place] [address] 48848- 5156 Nov, [facility] [id number] [place] [address] 43546- 3301 Nov, [address] [place] [id number] [place] [address] 25761- 6341 Oct, BMI 45.0-49.9, adult Z68.42 ; Bipolar disorder, in partial remission, most recent episode depressed F31.75 ; MESERET (generalized anxiety disorder) F41.1 and Panic disorder F41.[address] [id number] [id number] 23 Oct, 2017 BMI 45.0-49.9, adult Z68.42 ; Coronary artery disease involving andreafski coronary artery of andreafski heart without angina pectoris I25.10 ; Hx of CABG Z95.1 ; Dyspnea on exertion R06.09 ; Essential hypertension I10 ; Mixed hyperlipidemia E78.2 ; Claudication I73.9 and Tobacco use Z72.0 [facility] [address] [facility] [id number] [id number] 15 Oct, 2017 BMI 45.0-49.9, adult Z68.42 ; Bipolar 1 disorder, depressed F31.9 and Abscess L02.[address] [place] [address] 85351- 7303 14 Oct, 2017 Bipolar 1 disorder, depressed F31.9 ; PTSD (post-traumatic stress disorder) F43.10 and Panic attacks F41.0 [address] [place] [address] 76213- 8507 Sep, BMI 40.0-44.9, adult Z68.41 ; Mood disorder F39 ; MESERET ( generalized anxiety disorder) F41.1 and Panic disorder F41.0 [id number] [place] [address] 27240- 1260 Sep, BMI 40.0-44.9, adult Z68.41 [id number] [place] [address] 37195- 2015 Sep, Bipolar 1 disorder, depressed F31.9 ; PTSD (post-traumatic stress disorder) F43.10 and Panic attacks F41.0 [id number] [place] [address] 21210- 2133 Aug, BMI 40.0-44.9, adult Z68.41 ; Mood disorder F39 ; MESERET ( generalized anxiety disorder) F41.1 and Panic disorder F41.0 [address] [place] [address] 86253- 9403 Aug, Bipolar 1 disorder, depressed F31.9 ; PTSD (post-traumatic stress disorder) F43.10 and Panic attacks F41.0 [facility] [address] [facility] [address] [id number][place] [id number] Aug, [facility] [id number] [place] [address] [id number] Aug, COPD mixed type J44.9 [facility] [id number] [place] [address] 47112- 9750 Aug, [facility] [id number] [place] [address] 50992- 4779 Jul, PTSD (post-traumatic stress disorder) F43.10 ; Panic disorder F41.0 ; MESERET (generalized anxiety disorder) F41.1 ; Mood disorder F39 and BMI 40.0-44.9, adult Z68.41 [address] [address] [place] [address] 36822- 4745 Jul, Bipolar 1 disorder, depressed F31.9 ; PTSD (post-traumatic stress disorder) F43.10 and Panic attacks F41.0 [address] [id number] Jul, Bipolar 1 disorder, depressed F31.9 [facility] [address] [facility] [id number] [place] [address] [id number] Jul, Anxiety F41.9 ; COPD mixed type J44.9 ; Essential hypertension I10 ; Bipolar 1 disorder F31.9 ; High risk medication use Z79.899 ; BMI 40.0-44.9, adult Z68.41 and Coronary artery disease involving coronary bypass graft of andreafski heart without angina pectoris I25.810 [address] [id number] Jul, Chronic obstructive pulmonary disease with acute exacerbation J44.1 and Acute nasopharyngitis J00 [facility] [address] [id number] [id number] Jul, Anxiety F41.9 ; Mixed hyperlipidemia E78.2 and Bipolar 1 disorder F31.[address] [facility] [address] [id number] [place] [address] Jun Bipolar 1 disorder F31.9 [facility] [address] [id number] [place] [address] Jun [facility] [address] [id number] [id number] Jun, Anxiety F41.9 ; Elevated blood sugar R73.9 ; Mixed hyperlipidemia E78.2 ; COPD mixed type J44.9 ; Essential hypertension I10 ; Bipolar 1 disorder F31.9 ; Coronary artery disease involving coronary bypass graft of andreafski heart without angina pectoris I25.810 ; High risk medication use Z79.899 ; Controlled substance agreement signed Z79.899 ; Elevated fasting glucose R73.01 ; Encounter for immunization Z23 and BMI 40.0-44.9, adult Z68.41 [facility] [id number] [place] [address] [id number] Jun, Elevated blood sugar R73.9 [facility] [id number] [place] [address] [id number] Jun, [facility] [id number] [place] [address] [id number] Jun, Bipolar 1 disorder F31.9 ; Obesity (BMI 30-39.9) E66.9 ; Coronary artery disease involving coronary bypass graft of andreafski heart without angina pectoris I25.810 and Essential hypertension I10 [facility] [id number] [place] [address] [id number] Jun, Coronary artery disease involving coronary bypass graft of andreafski heart without angina pectoris I25.810 ; Bipolar 1 disorder F31.9 ; Anxiety F41.9 ; Essential hypertension I10 ; COPD mixed type J44.9 and Mixed hyperlipidemia E78.2 [facility] [id number] [place] [address] [id number] May, Severe single current episode of major depressive disorder, 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.2 ; Bipolar 1 disorder F31.9 ; Anxiety F41.9 ; PTSD (post -traumatic stress disorder) F43.10 ; Coronary artery disease involving coronary bypass graft of andreafski heart without angina pectoris I25.810 ; Sleep apnea in adult G47.30 ; Essential hypertension I10 ; High risk medication use Z79.899 ; Obesity (BMI 30-39.9) E66.9 ; Encounter for therapeutic drug level monitoring Z51.81 and COPD mixed type J44.9 [facility] [address] [place] [address] [id number] May, Severe single current episode of major depressive disorder, 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.2 ; Bipolar 1 disorder F31.9 ; Anxiety F41.9 ; PTSD (post -traumatic stress disorder) F43.10 ; Mixed hyperlipidemia E78.2 ; Coronary artery disease involving coronary bypass graft of andreafski heart without angina pectoris I25.810 ; Sleep apnea in adult G47.30 ; Essential hypertension I10 ; High risk medication use Z79.899 ; Controlled substance agreement signed Z79.899 ; Obesity (BMI 30-39.9) E66.9 ; Tobacco abuse Z72.0 ; Tobacco abuse counseling Z71.6 and COPD mixed type J44.9 [facility] [address] [place] [address] [id number] May, [facility] [id number] [place] [address] 07775- 2325 Dec, [facility] [id number] [place] [address] 64686- 6397 Dec, [facility] [id number] [place] [address] 85420- 4636 May, [facility] [id number] [place] [address] 54434908- 3062 May, [facility] [address] [place] [address] [id number] Dec, [facility] [id number] [place] [address] [id number]- 0642 Dec, [facility] [id number] [place] [address] [id number] Dec, [facility] [id number] [place] [address] 86668- 7013 Dec, [facility] [address] [facility] [id number] [address]- 2546 Dec, [facility] [place] [facility] [address] [facility] [id number] [place] [address] 2546 Dec, [facility] [place] [facility] [address] [facility] [id number] [place] [address]- 2546 Nov, [facility] [address] [facility] [id number] [place] [id number] Nov, [facility] [address] [facility] [id number] [place] [id number] Nov, [facility] [address] [facility] [id number] [place] [id number] Nov, [facility] [place] [facility] [address] [facility] [id number] [address] 2546 Nov, [facility] [place] [facility] [address], [place] [address]- 5106 Nov, [facility] [place] [facility] [address] [facility] [id number] [place] [address] 2546 Nov, [facility] [place] [facility] [id number] [address]- 7286 Nov, [facility] [place] [facility] [id number] [address] 2546 Nov, [facility] [place] [facility] [address] [facility] [id number][place] [address]- 2546 Nov, [facility] [address] [facility] [id number][place] [id number] Nov, [facility] [address] [facility] [id number] [place] [id number] Oct, [facility] [place] [facility] [address] [facility] [id number][place] [address]- 2546 Oct, [facility] [address] [facility] [id number][place] [id number] Oct, [facility] [place] [facility] [address] [facility] [id number][place] [address]- 5966 Oct, [facility] [address] [facility] [id number] [place] [address]- 0926 Oct, [facility] [address] [facility] [id number], [place] [id number] Sep, [facility] [place] [facility] [id number] [address]- 8066 Sep, [facility] [address] [facility] [id number][place] [id number] Sep, [facility] [place] [facility] [id number] [place] [address]- 5586 Sep, [facility] [place] [facility] [address], [place] [address]- 1306 Sep, [facility] [place] [facility] [address], [place] [address]- 7946 Sep, [facility] [place] [facility] [address], [place] [address]- 0227 Aug, [facility] [address] [id number], [place] [id number] Aug, [facility] [place] [facility] [address], [place] [address]- 2906 Aug, [facility] [id number], [place] [id number] Jul, [facility] [place] [facility] [address], [place] [address]- 4766 Jul, [facility] [address] [facility] [id number][place] [id number] Jul, [facility] [place] [facility] [address], [place] [address]- 9446 Jul, [facility] [place] [facility] [id number], [place] [address]- 0666 May, [facility] [place] [facility] [address], [place] [address]- 4856 Apr, [facility] [address] [facility] [id number] [place] [address]- 9966 Apr, [facility] [address] [facility] [id number], [place] [address]- 2546 Mar, [facility] [address] [id number] [id number] Feb, [facility] [address] [id number] [place] [id number] Feb, [facility] [address] [id number] [place] [id number] Feb, [facility] [address] [facility] [id number] [place] [address]- 2546 Feb, [facility] [place] [facility] [address] [facility] [id number] [place] [address]- 2546 January, [facility] [id number] [place] [address]- 2546 January, [facility] [address] [id number] [place] [id number] Dec, [facility] [address] [id number] [place] [id number] Dec, [facility] [address] [id number] [id number] Dec, [facility] [address] [id number] [place] 6897[address] Dec, [facility] [address] [id number], [place] [id number] Dec, [facility] [address] [id number] [place] [id number] Dec, [facility] [address] [facility] [id number] [place] [address]- 2546 Dec, [facility] [place] [facility] [address] [facility] [id number] [place] [address]- 2546 Dec, [facility] [address] [id number], [place] [id number] Nov, [facility] [address] [facility] [id number], [place] [id number] Nov, [facility] [address] [facility] [id number] [place] [id number] Nov, [facility] [address] [facility] [id number] [place] [address]- 2546 Oct, [facility] [address], [place] [address]- 2546 Oct, [facility] [place] [facility] [address] [facility] [id number] [place] [address]- 2546 Sep, [facility] [id number] [place] [address]- 8096 Aug, [facility] [id number] [place] [address]- 1246 Aug, [facility] [id number] [place] [address]- 6626 Aug, [facility] [address]00565100[place], [place] [address]- 2726 Aug, [facility] [id number], [place] [id number] Aug, [facility] [address], [place] [address]- 7736 Aug, [facility] [place] [facility] [address]00565100[place], [place] [address]- 2546 Jul, [facility] [place] [facility] [address] [facility] [id number], [place] [address]- 2546 Jul, [facility] [place] [facility] [address]100[place], [place] [address]- 2546 Jul, [facility] [place] [facility] [address] [facility] [id number][place] [address]- 2546 Jul, [facility] [address] [id number], [place] [id number] Jun, [facility] [address] [id number] [place] [id number] Jun, [facility] [place] [facility] [address] [id number] [place] [address]- 2546 Jun, [facility] [address] [facility] [id number] [place] [id number] Apr, [facility] [place] [facility] [address] [facility] [id number] [place] [address]- 2546 Apr, [facility] [place] [facility] [address] [facility] [id number] [place] [address]- 2546 Mar, [facility] [address] [id number] [place] [id number] Feb, [facility] [address] [facility] [id number] [place] [id number] Feb, [facility] [place] [facility] [id number] [place] [address]- 4396 Feb, [facility] [address] [facility] [id number], [place] [id number] Feb, [facility] [place] [facility] [address] [facility] [id number], [place] [address]- 6894 Feb, [facility] [place] [facility] [address]00565100[place], [place] [address]- 0476 Feb, [facility] [place] [facility] [address]00565100[place], [place] [address]- 3006 Feb, [facility] [place] [facility] [address] [facility] [id number], [place] [address]- 2986 Feb, [facility] [address] [facility] [id number], [place] [id number] January, [facility] [address] [facility] [id number] [place] [id number] Dec, [facility] [place] [facility] [address] [facility] [id number][place] [address]- 1476 Dec, [facility] [place] [facility] [address] [facility] [id number][place] [address]- 6532 Dec, [facility] [address] [id number] [place] [id number] Dec, [facility] [address] [facility] [id number], [place] [address] Dec, [facility] [address] [id number] [place] [id number] Dec, [facility] [address] [id number] [place] [id number] Nov, [facility] [address] [id number] [place] [id number] Nov, [facility] [address] [id number] [place] [id number] Nov, [facility] [address] [id number] [place] [id number] Nov, [facility] [id number] [address] Oct, [facility] [address] [id number] [place] [id number] Oct, [facility] [address] [id number] [place] [id number] Oct, [facility] [address] [id number] [place] [id number] Oct, [facility] [address] [id number] [place] [id number] Oct, [facility] [address] [id number] [place] [id number] Sep, [facility] [address] [id number] [place] [id number] Sep, [facility] [id number], [place] [address] Sep, [facility] [id number], [place] [address] Sep, [facility] [id number] [address] Sep, [facility] [id number] [address] Sep, [facility] [address] [id number] [place] [address] 30 Aug, 2011 [facility] [address] [id number] [place] [address] Aug, [facility] [address] [id number] [place] [address] Aug, [facility] [address] [id number] [place] [address] Aug, [facility] [address] [id number] [place] [address], [place] [address] Aug, [facility] [address] [id number] [place] [address] Aug, [facility] [address] [id number] [place] [address] Aug, [facility] [address] [id number] [place] [address] Aug, [facility] [address] [id number] [place] [address] 27 Jun, 2011 [facility] [address] [id number] [place] [address] 27 Jun, 2011 [facility] [place] [facility] [address] [id number] [place] [address] 19 Jun, 2011 [facility] [address] [id number] [place] [address] 19 Jun, 2011 [facility] [place] [facility] [address] [id number] [place] [address] 14 Jun, 2011 [facility] [place] [facility] [address] [id number] [place] [address] 13 Jun, 2011 [facility] [address] [id number] [place] [address] Jun, [facility] [address] [id number] [address] Jun, [facility] [id number] [address] Jun, [facility] [id number] [address] 14 May, 2011 [facility] [id number] [place] [id number] Apr, [facility] [id number] [address] Feb, [facility] [id number] [place] [id number]- [id number] Dec, [facility] [id number] [address] Aug, [facility] [id number] [place] [address] Aug, [facility] [id number] [address] Aug, [facility] [id number] [address] Aug, [facility] [id number] [address] Jul, [facility] [id number] [address] Jun, [facility] [id number] [address] Jun, IMMUNIZATIONS No Known Immunizations SOCIAL HISTORY Never Assessed REASON FOR VISIT xanax refill PLAN OF CARE VITAL SIGNS MEDICATIONS Medication Instructions Dosage Frequency Start Date End Date Duration Status Alprazolam 0.5 MG Orally Three times a day as needed for anxeity 1 tablet 30 days Active RESULTS No Results [...] Coronary atherosclerosis of unspecified type of vessel, andreafski or graft Surgical History section x4 Surgical History CABG x3 Surgical History Left arm-Plate and screws placed Hospitalization History Surgery(s)/Childbirth(s) only
--- OUTSIDE RECORDS SUMMARY | 2019-02-02 13:51 | XMS REPORT ---
Author Author DEANA KEVON [facility] Address [address] [place] [address] Care Team Providers Care Degreasing Solution Mixer Name Role Phone ANNIMARILYN KEVON Unavailable PROBLEMS Type Condition ICD9-CM Code DMC15-MP Code Onset Dates Condition Status SNOMED Code Problem Chronic obstructive pulmonary disease with acute exacerbation J44.1 Active 493798808 Problem MESERET (generalized anxiety disorder) F41.1 Active 69605058 Problem Panic disorder F41.0 Active 075557000 Problem Morbid (severe) obesity due to excess calories E66.01 Active 91870641604960 Problem Body mass index (BMI) of 45.0-49.9 in adult Z68.42 Active 631680415 Problem Coronary artery disease involving [place] coronary artery of [place] heart without angina pectoris I25.10 Active 0515751678712 Problem Mood disorder F39 Active 61227002 Problem Bipolar disorder, in partial remission, most recent episode depressed F31.75 Active 41520021 Problem Claudication I73.9 Active 536218008 Problem Mixed hyperlipidemia E78.2 Active 711423622 Problem PTSD (post-traumatic stress disorder) F43.10 Active 98364667 Problem Sleep apnea in adult G47.30 Active 65324709 Problem COPD mixed type J44.9 Active 56836351 Problem Obesity (BMI 30-39.9) E66.9 Active 484742046 Problem Coronary artery disease involving coronary bypass graft of [place] heart without angina pectoris I25.810 Active 504006620 Problem Bipolar 1 disorder F31.9 Active 184673872 Problem Essential hypertension I10 Active 29629043 ALLERGIES No Information ENCOUNTERS Encounter Location Date Diagnosis [facility] [address] [facility] [id number] [address] Aug, [facility] [id number] [address] Aug, [facility] [address] [address] Jul, Bipolar disorder, in partial remission, most recent episode depressed F31.75 ; MESERET (generalized anxiety disorder) F41.1 ; Panic disorder F41.0 and BMI 45.0-49.9, adult Z68.42 [place] [address] [place] [address] Jul, Bipolar disorder, in partial remission, most recent episode depressed F31.75 [facility] [id number] [place] [address] [id number] May, Hidradenitis suppurativa L73.2 and BMI 45.0-49.9, adult Z68.42 [place] [id number] [place] [address] 92698- [address]28 18 May, 2018 Bipolar 1 disorder, depressed F31.9 ; PTSD (post-traumatic stress disorder) F43.10 and Panic attacks F41.0 [place] [address] [place] [address] 81290- 4444 May, Bipolar disorder, in partial remission, most recent episode depressed F31.75 ; MESERET (generalized anxiety disorder) F41.1 ; Panic disorder F41.0 and BMI 45.0-49.9, adult Z68.42 [place] [address] [address] Apr, Bipolar disorder, in partial remission, most recent episode depressed F31.75 ; MESERET (generalized anxiety disorder) F41.1 ; Panic disorder F41.0 and BMI 45.0-49.9, adult Z68.42 [facility] [id number] [id number] Apr, [place] [id number] [place] [address] 01344- 2059 Apr, Bipolar 1 disorder, depressed F31.9 [place] [address] [address] Mar, Bipolar disorder, in partial remission, most recent episode depressed F31.75 ; MESERET (generalized anxiety disorder) F41.1 ; Panic disorder F41.0 and BMI 45.0-49.9, adult Z68.42 [facility] [id number] [place] [address] [id number] Mar, High risk medication use Z79.899 and Mixed hyperlipidemia E78.2 [facility] [id number][place] [id number] Mar, COPD mixed type J44.9 ; Essential hypertension I10 ; Sleep apnea in adult G47.30 ; Mixed hyperlipidemia E78.2 ; Morbid (severe) obesity due to excess calories E66.01 ; Body mass index (BMI) of 45.0-49.9 in adult Z68.42 ; Tobacco abuse Z72.0 ; Tobacco abuse counseling Z71.6 and BMI 45.0-49.9, adult Z68.42 [place] [id number] [place] [address] 02302- 5671 26 Feb, 2018 Bipolar disorder, in partial remission, most recent episode depressed F31.75 ; MESERET (generalized anxiety disorder) F41.1 ; Panic disorder F41.0 and BMI 45.0-49.9, adult Z68.42 [place] [id number] [place] [address] 86949- 3311 Feb, Bipolar 1 disorder, depressed F31.9 ; PTSD (post-traumatic stress disorder) F43.10 and Panic attacks F41.0 [place] [id number] [place] [address] 73031- 8924 Feb, High risk medication use Z79.899 [place] [address] [place] [address] 05421- 3439 January, High risk medication use Z79.899 ; Bipolar disorder, in partial remission, most recent episode depressed F31.75 ; MESERET (generalized anxiety disorder) F41.1 ; Panic disorder F41.0 and BMI 45.0-49.9, adult Z68.42 [place] [id number] [place] [address] 85279- 2212 January, Bipolar 1 disorder, depressed F31.9 ; PTSD (post-traumatic stress disorder) F43.10 and Panic attacks F41.0 [place] [address] [address] 0[address] January, Bipolar 1 disorder, depressed F31.9 ; PTSD (post-traumatic stress disorder) F43.10 and Panic attacks F41.0 [place] [address] [address] Dec, BMI 45.0-49.9, adult Z68.42 ; Bipolar disorder, in partial remission, most recent episode depressed F31.75 ; MESERET (generalized anxiety disorder) F41.1 and Panic disorder F41.0 [place] [address] [address] Dec, Bipolar 1 disorder, depressed F31.9 ; PTSD (post-traumatic stress disorder) F43.10 and Panic attacks F41.0 [place] [address] [address] Nov, Bipolar disorder, in partial remission, most recent episode depressed F31.75 ; MESERET (generalized anxiety disorder) F41.1 and Panic disorder F41.0 [place] [address] [address] Nov, [place] [address] [address] Nov, [place] [address] [address] Oct, BMI 45.0-49.9, adult Z68.42 ; Bipolar disorder, in partial remission, most recent episode depressed F31.75 ; MESERET (generalized anxiety disorder) F41.1 and Panic disorder F41.[address] [id number] [place] [id number] Oct, BMI 45.0-49.9, adult Z68.42 ; Coronary artery disease involving [place] coronary artery of [place] heart without angina pectoris I25.10 ; Hx of CABG Z95.1 ; Dyspnea on exertion R06.09 ; Essential hypertension I10 ; Mixed hyperlipidemia E78.2 ; Claudication I73.9 and Tobacco use Z72.0 [facility] [id number] [place] [address] [id number] 15 Oct, 2017 BMI 45.0-49.9, adult Z68.42 ; Bipolar 1 disorder, depressed F31.9 and Abscess L02.91 [place] [id number] [place] [address]94- 5976 14 Oct, 2017 Bipolar 1 disorder, depressed F31.9 ; PTSD (post-traumatic stress disorder) F43.10 and Panic attacks F41.0 [place] [id number] [place] [address] 63791- 4023 Sep, BMI 40.0-44.9, adult Z68.41 ; Mood disorder F39 ; MESERET ( generalized anxiety disorder) F41.1 and Panic disorder F41.0 [place] [id number] [place] [address] 01440- 6204 Sep, BMI 40.0-44.9, adult Z68.41 [place] [id number] [place] [address] 15219- 3323 Sep, Bipolar 1 disorder, depressed F31.9 ; PTSD (post-traumatic stress disorder) F43.10 and Panic attacks F41.0 [place] [id number] [place] [address]36- 7313 Aug, BMI 40.0-44.9, adult Z68.41 ; Mood disorder F39 ; MESERET ( generalized anxiety disorder) F41.1 and Panic disorder F41.0 [place] [id number] [place] [address] 10762- 8205 Aug, Bipolar 1 disorder, depressed F31.9 ; PTSD (post-traumatic stress disorder) F43.10 and Panic attacks F41.0 [facility] [id number] [place] [address] [id number] Aug, [facility] [address] [facility] [id number][place] [id number] Aug, COPD mixed type J44.9 [place] [id number] [address] Aug, [place] [address] [address] Jul, PTSD (post-traumatic stress disorder) F43.10 ; Panic disorder F41.0 ; MESERET (generalized anxiety disorder) F41.1 ; Mood disorder F39 and BMI 40.0-44.9, adult Z68.41 [place] [address] [place] [address] 70480- 2386 Jul, Bipolar 1 disorder, depressed F31.9 ; PTSD (post-traumatic stress disorder) F43.10 and Panic attacks F41.0 [address] [place] [address] [id number] Jul, Bipolar 1 disorder, depressed F31.9 [place] [id number] [address] Jul, Anxiety F41.9 ; COPD mixed type J44.9 ; Essential hypertension I10 ; Bipolar 1 disorder F31.9 ; High risk medication use Z79.899 ; BMI 40.0-44.9, adult Z68.41 and Coronary artery disease involving coronary bypass graft of [place] heart without angina pectoris I25.810 [address] [id number] [id number] Jul, Chronic obstructive pulmonary disease with acute exacerbation J44.1 and Acute nasopharyngitis J00 [place] [id number] [id number] Jul, Anxiety F41.9 ; Mixed hyperlipidemia E78.2 and Bipolar 1 disorder F31.9 [facility] [address] [id number] [place] [address] Jun Bipolar 1 disorder F31.9 [facility] [address] [id number] [place] [address] Jun [address] [place] [address] [id number] Jun, Anxiety F41.9 ; Elevated blood sugar R73.9 ; Mixed hyperlipidemia E78.2 ; COPD mixed type J44.9 ; Essential hypertension I10 ; Bipolar 1 disorder F31.9 ; Coronary artery disease involving coronary bypass graft of [place] heart without angina pectoris I25.810 ; High risk medication use Z79.899 ; Controlled substance agreement signed Z79.899 ; Elevated fasting glucose R73.01 ; Encounter for immunization Z23 and BMI 40.0-44.9, adult Z68.[address] [place] [address] [id number] Jun, Elevated blood sugar R73.9 [place] [id number] [place] [address] [id number] Jun, [place] [id number] [place] [address] [id number] Jun, Bipolar 1 disorder F31.9 ; Obesity (BMI 30-39.9) E66.9 ; Coronary artery disease involving coronary bypass graft of [place] heart without angina pectoris I25.810 and Essential hypertension I10 [place] [id number] [place] [address] [id number] Jun, Coronary artery disease involving coronary bypass graft of [place] heart without angina pectoris I25.810 ; Bipolar 1 disorder F31.9 ; Anxiety F41.9 ; Essential hypertension I10 ; COPD mixed type J44.9 and Mixed hyperlipidemia E78.[address] [place] [address] [id number] May, Severe single current episode of major depressive disorder, 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.2 ; Bipolar 1 disorder F31.9 ; Anxiety F41.9 ; PTSD (post -traumatic stress disorder) F43.10 ; Coronary artery disease involving coronary bypass graft of [place] heart without angina pectoris I25.810 ; Sleep apnea in adult G47.30 ; Essential hypertension I10 ; High risk medication use Z79.899 ; Obesity (BMI 30-39.9) E66.9 ; Encounter for therapeutic drug level monitoring Z51.81 and COPD mixed type J44.9 [facility] [id number] [id number] May, 2017 Severe single current episode of major depressive disorder, 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.2 ; Bipolar 1 disorder F31.9 ; Anxiety F41.9 ; PTSD (post -traumatic stress disorder) F43.10 ; Mixed hyperlipidemia E78.2 ; Coronary artery disease involving coronary bypass graft of [place] heart without angina pectoris I25.810 ; Sleep apnea in adult G47.30 ; Essential hypertension I10 ; High risk medication use Z79.899 ; Controlled substance agreement signed Z79.899 ; Obesity (BMI 30-39.9) E66.9 ; Tobacco abuse Z72.0 ; Tobacco abuse counseling Z71.6 and COPD mixed type J44.9 [facility] [id number] [place] [address] [id number] May, [facility] [id number] [place] [address] 84048- 6238 Dec, [facility] [id number] [place] [address] 87996- 0286 Dec, [facility] [id number] [place] [address] 00141- 2914 May, [facility] [id number] [place] [address] 69712- 2314 May, [facility] [id number] [place] [address] [id number] Dec, [facility] [id number] [place] [address] 88715- 6366 Dec, [facility] [id number] [place] [address] [id number] Dec, [facility] [address] [address]- [address]88 Dec, [facility] [id number] [place] [address] [id number]- 1432 Dec, [facility] [address] 9[address]60- 2546 Dec, [facility] [place] [facility] [address] [facility] [id number] [place] [address]- 2546 Nov, [facility] [address] [id number] [place] [id number] Nov, [facility] [address] [facility] [id number] [place] [id number] Nov, [facility] [address] [facility] [id number] [place] [id number] Nov, [facility] [place] [facility] [address] [id number] [place] [address]- 2546 Nov, [facility] [place] [facility] [address] [facility] [id number] [place] [address] 2546 Nov, [facility] [place] [facility] [address] [facility] [id number] [place] [address] 2546 Nov, [facility] [place] [facility] [id number] [place] [address] 2546 Nov, [facility] [place] [facility] [address] [facility] [id number] [place] [address]- 8732 Nov, [facility] [place] [facility] [address] [facility] [id number] [place] [address]- 0826 Nov, [facility] [address] [facility] [id number] [place] [id number] Nov, [facility] [address] [facility] [id number][place] [phone] Oct, [facility] [place] [facility] [address] [facility] [id number] [place] [address]- 2546 Oct, [facility] [address] [facility] [id number] [place] [id number] Oct, [facility] [place] [facility] [address] [facility] [id number] [place] [address]- 2546 Oct, [facility] [place] [facility] [address] [facility] [id number] [place] [address]- 0786 Oct, [facility] [address] [id number] [place] [id number] Sep, [facility] [address] [id number] [place] [address]- 7856 Sep, [facility] [address] [id number] [place] [id number] Sep, [facility] [address] [id number] [place] [address]- 8517 Sep, [facility] [place] [facility] [address] [id number] [place] [address]- 2238 Sep, [facility] [place] [facility] [address] [facility] [id number] [place] [address]- 2719 Sep, [facility] [address] [id number] [place] [address]- 4830 Aug, [facility] [address] [facility] [id number] [place] [id number] Aug, [facility] [address] [facility] [id number] [place] [address]- 8079 Aug, [facility] [address] [id number][place] [id number] Jul, [facility] [address] [id number] [address]- 3212 Jul, [facility] [address] [facility] [id number], [place] [id number] Jul, [facility] [place] [facility] [address] [id number] [place] [address]- 8805 Jul, [facility] [place] [facility] [address] [id number] [place] [address]- 9819 May, [facility] [place] [facility] [address] [facility] [id number] [place] [address]- 7966 Apr, [facility] [place] [facility] [address] [facility] [id number] [place] [address]- 4691 Apr, [facility] [place] [facility] [address] [facility] [id number] [place] [address]- 2546 Mar, [facility] [address] [id number] [place] [id number] Feb, [facility] [address] [id number] [place] [id number] Feb, [facility] [address] [id number] [place] [id number] Feb, [facility] [address] [facility] [id number] [place] [address] 2546 Feb, [facility] [address] [facility] [id number] [place] [address]- 9753 January, [facility] [address] [facility] [id number] [place] [address]- 4716 January, [facility] [address] [id number] [place] [id number] Dec, [facility] [address] [id number] [place] [id number] Dec, [facility] [address] [id number] [place] [id number] Dec, [facility] [address] [id number] [place] [id number] Dec, [facility] [address] [id number] [place] [id number] Dec, [facility] [address] [id number] [place] [id number] Dec, [facility] [address] [facility] [id number] [place] [address]- 2546 Dec, [facility] [address] [facility] [id number] [place] [address]- 2546 Dec, [facility] [address] [id number] [place] [id number] Nov, [facility] [address] [id number] [place] [id number] Nov, [facility] [address] [id number] [place] [id number] Nov, [facility] [address] [id number] [place] [address]- 2596 Oct, [facility] [place] [facility] [address] [facility] [id number] [place] [address]- 4096 Oct, [facility] [address] [facility] [id number] [place] [address]- 0076 Sep, [facility] [place] [facility] [address] [facility] [id number] [place] [address]- 0296 Aug, [facility] [place] [facility] [address] [id number] [place] [address]- 4358 Aug, [facility] [place] [facility] [address] [facility] [id number] [place] [address]- 8266 Aug, [facility] [address] [facility] [id number] [place] [address]- 5006 Aug, [facility] [address] [id number] [id number] Aug, [facility] [address] [facility] [id number] [place] [address]- 4086 Aug, [facility] [address] [id number] [address]- 3726 Jul, [facility] [address] [facility] [id number] [place] [address]- 2546 Jul, [facility] [place] [facility] [address] [facility] [id number] [place] [address]- 2546 Jul, [facility] [place] [facility] [address] [facility] [id number] [place] [address]- 2546 Jul, [facility] 120 [facility] [id number][place] [id number] Jun, [facility] 120 [facility] [id number], [place] [id number] Jun, [facility] [place] [facility] [address] [facility] [id number] [place] [address]- 2546 Jun, [facility] [address] [facility] [id number][place] [id number] Apr, [facility] [place] [facility] [address] [facility] [id number] [place] [address]- 2416 Apr, [facility] [place] [facility] [address] [facility] [id number] [place] [address]- 2546 Mar, [facility] [address] [facility] [id number] [place] [id number] Feb, [facility] [address] [facility] [id number] [place] [id number] Feb, [facility] [place] [facility] [address] [facility] [id number] [place] [address]- 9516 Feb, [facility] [address] [facility] [id number][place] [id number] Feb, [facility] [place] [facility] [address]005[address]100[place] [address]- 4726 Feb, [facility] [place] [facility] [address]100[place] [address]- 0856 Feb, [facility] [place] [facility] [address]100[place] [address]- 2116 Feb, [facility] [place] [facility] [id number] [address] Feb, [facility] [place] [address] [id number] [id number] January, [facility] [place] [address] [facility] [id number][place] [id number] Dec, [facility] [place] [facility] [address] [facility] [id number] [place] [address] Dec, [facility] [place] [facility] [address] [facility] [id number] [place] [address] Dec, [facility] [place] [address] [facility] [id number][place] [id number] Dec, [facility] [place] [facility] [id number] [place] [address] Dec, [facility] [place] [address] [id number] [place] [id number] Dec, [facility] [place] [address] [id number] [place] [id number] Nov, [facility] [place] [address] [id number] [place] [id number] Nov, [facility] [place] [address] [id number] [place] [id number] Nov, [facility] [place] [address] [id number] [place] [id number] Nov, [facility] [id number] [place] [address] Oct, [facility] [place] [address] [id number] [place] [id number] Oct, [facility] [place] [address] [id number] [place] [id number] Oct, [facility] [place] [address] [id number] [place] [id number] Oct, [facility] [place] [address] [id number] [place] [id number] Oct, [facility] [place] [address] [id number] [place] [id number] Sep, [facility] [place] [address] [id number] [place] [id number] Sep, [facility] [id number] [address] Sep, [facility] [id number] [address] Sep, [facility] [id number] [place] [address] Sep, [facility] [id number] [address] Sep, [facility] [id number] [address] Aug, [facility] [place] [facility] [address] [id number] [place] [address] Aug, [facility] [place] [facility] [address] [id number] [place] [address] Aug, [facility] [place] [facility] [address] [id number] [place] [address] Aug, [facility] [place] [facility] [address] [id number] [place] [address] Aug, [facility] [place] [facility] [address] [id number] [place] [address] Aug, [facility] [place] [facility] [address] [id number] [place] [address] Aug, [facility] [place] [facility] [address] [id number] [place] [address] Aug, [facility] [place] [facility] [address] [id number] [place] [address] Jun, [facility] [place] [facility] [address] [id number] [place] [address] 27 Jun, 2011 [facility] [place] [facility] [address] [id number] [place] [address] Jun, [facility] [place] [facility] [address] [id number] [place] [address] 19 Jun, 2011 [facility] [place] [facility] [address] [id number] [place] [address] 14 Jun, 2011 [facility] [place] [facility] [address] [id number] [place] [address] 13 Jun, 2011 [facility] [place] [facility] [address] [id number] [place] [address] 12 Jun, 2011 [facility] [place] [facility] [address] [id number] [place] [address] 12 Jun, 2011 [facility] [place] [facility] [id number] [place] [address] 12 Jun, 2011 [facility] [id number] [place] [address] 14 May, 2011 [facility] [id number] [place] [address] 10 Apr, 2011 [facility] [address] [id number] [address] 16 Feb, 2011 [facility] [id number] [place] [address] Dec, [facility] [id number] [place] [address] Aug, [facility] [id number] [place] [address] Aug, [facility] [id number] [place] [address]- [address] Aug, [facility] [id number] [place] [address] Aug, [facility] [id number] [place] [address]- [address] Jul, [facility] [id number] [place] [address] Jun, [facility] [id number] [place] [address] Jun, IMMUNIZATIONS No Known Immunizations SOCIAL HISTORY Never Assessed REASON FOR VISIT f/u Gia. Radha [employer] PLAN OF CARE Activity Details Follow Up 4 Weeks Reason: VITAL SIGNS Height 59 in 2018-08-08 Weight 224 lbs 2018-08-08 Heart Rate 84 bpm 2018-08-08 Respiratory Rate 20 2018-08-08 BMI 45.24 kg/m2 2018-08-08 Blood pressure systolic 146 mmHg 2018-08-08 Blood pressure diastolic 80 mmHg 2018-08-08 MEDICATIONS Medication Instructions Dosage Frequency Start Date End Date Duration Status Celexa 10 MG Orally Once a day 1 tablet 24h Active Singulair 10 MG Orally Once a day 1 tablet 24h 0 Active Alprazolam 0.5 MG Orally Three times a day as needed for anxeity 1 tablet Active Trazodone HCl 100 MG Orally at night as needed for sleep 0.5 -1 tablet Active Albuterol Sulfate (2.5 MG/3ML) 0.083% Inhalation Three times a day as needed 3 ml 0 Active Symbicort 160-4.5 MCG/ACT Inhalation Twice a day 2 puffs 12h 0 Active [place] Carbonate 300 MG Orally daily 2 capsules in morning and one at night 24h Active Atorvastatin Calcium 40 mg Orally Once a day 1 tablet 24h 0 Active Aspir-81 81 MG Orally Once a day 1 tablet 24h 0 Active Zyrtec Allergy 10 MG Orally Once a day 1 tablet 24h 0 Active Spiriva Respimat 2.5 MCG/ACT Inhalation Once a day 1 puff 24h 0 Active Ventolin HFA 108 (90 Base) MCG/ACT Inhalation every 4 hrs 2 puffs as needed 4h 0 Active Losartan Potassium-HCTZ 50-12.5 MG orally Twice per day 1 tablet 0 Active RESULTS No Results PROCEDURES No Known [...] Coronary atherosclerosis of unspecified type of vessel, [place] or graft Surgical History section x4 Surgical History CABG x3 Surgical History Left arm-Plate and screws placed Hospitalization History Surgery(s)/Childbirth(s) only
--- OUTSIDE RECORDS SUMMARY | 2019-02-02 13:52 | XMS REPORT ---
Author Author DEANA KEVON [facility] Address [address] [place] [address] Care Team Providers Care Clerical Office Name Role Phone DEANA KEVON Unavailable PROBLEMS Type Condition ICD9-CM Code SOD49-HY Code Onset Dates Condition Status SNOMED Code Problem Chronic obstructive pulmonary disease with acute exacerbation J44.1 Active 363861895 Problem MESERET (generalized anxiety disorder) F41.1 Active 72975178 Problem Panic disorder F41.0 Active 708263865 Problem Morbid (severe) obesity due to excess calories E66.01 Active 81975254536357 Problem Body mass index (BMI) of 45.0-49.9 in adult Z68.42 Active 418079341 Problem Coronary artery disease involving assiniboine and sioux coronary artery of assiniboine and sioux heart without angina pectoris I25.10 Active 3101302229696 Problem Mood disorder F39 Active 51098452 Problem Bipolar disorder, in partial remission, most recent episode depressed F31.75 Active 41980329 Problem Claudication I73.9 Active 512130133 Problem Mixed hyperlipidemia E78.2 Active 501892163 Problem PTSD (post-traumatic stress disorder) F43.10 Active 16663537 Problem Sleep apnea in adult G47.30 Active 28513977 Problem COPD mixed type J44.9 Active 69726356 Problem Obesity (BMI 30-39.9) E66.9 Active 591251601 Problem Coronary artery disease involving coronary bypass graft of assiniboine and sioux heart without angina pectoris I25.810 Active 309973919 Problem Bipolar 1 disorder F31.9 Active 341047096 Problem Essential hypertension I10 Active 01889776 ALLERGIES Substance Reaction Event Type Date Status Penicillin V Potassium Swelling/hives Drug Allergy May, Active Abilify dizziness Drug Allergy May, Active ENCOUNTERS Encounter Location Date Diagnosis [facility] [address] [facility] [id number] [address] [address] Jul, [facility] [address]005[address] [address] Jun, [address] [place] [address] [id number] May, Hidradenitis suppurativa L73.2 and BMI 45.0-49.9, adult Z68.42 [place] [id number] [place] [address] 58267- 7300 May, Bipolar 1 disorder, depressed F31.9 ; PTSD (post-traumatic stress disorder) F43.10 and Panic attacks F41.0 [place] [id number] [place] [address] 28886- 3758 May, Bipolar disorder, in partial remission, most recent episode depressed F31.75 ; MESERET (generalized anxiety disorder) F41.1 ; Panic disorder F41.0 and BMI 45.0-49.9, adult Z68.42 [place] [id number] [place] [address] 01216- 1008 Apr, Bipolar disorder, in partial remission, most recent episode depressed F31.75 ; MESERET (generalized anxiety disorder) F41.1 ; Panic disorder F41.0 and BMI 45.0-49.9, adult Z68.42 [address] [place] [address] [id number] Apr, [place] [address] [place] [address] 41406- 5375 Apr, Bipolar 1 disorder, depressed F31.9 [place] [id number] [place] [address] 61819- 9577 Mar, Bipolar disorder, in partial remission, most recent episode depressed F31.75 ; MESERET (generalized anxiety disorder) F41.1 ; Panic disorder F41.0 and BMI 45.0-49.9, adult Z68.42 [address] [place] [address] [id number] Mar, High risk medication use Z79.899 and Mixed hyperlipidemia E78.2 [place] [id number] [id number] Mar, COPD mixed type J44.9 ; Essential hypertension I10 ; Sleep apnea in adult G47.30 ; Mixed hyperlipidemia E78.2 ; Morbid (severe) obesity due to excess calories E66.01 ; Body mass index (BMI) of 45.0-49.9 in adult Z68.42 ; Tobacco abuse Z72.0 ; Tobacco abuse counseling Z71.6 and BMI 45.0-49.9, adult Z68.42 [place] [id number] [place] [address] 96623- 4624 Feb, Bipolar disorder, in partial remission, most recent episode depressed F31.75 ; MESERET (generalized anxiety disorder) F41.1 ; Panic disorder F41.0 and BMI 45.0-49.9, adult Z68.42 [place] [id number] [place] [address] 65032- 0550 Feb, Bipolar 1 disorder, depressed F31.9 ; PTSD (post-traumatic stress disorder) F43.10 and Panic attacks F41.0 [place] [address] [place] [address] 43635- 4425 Feb, High risk medication use Z79.899 [place] [id number] [place] [address] 43159- 2527 January, High risk medication use Z79.899 ; Bipolar disorder, in partial remission, most recent episode depressed F31.75 ; MESERET (generalized anxiety disorder) F41.1 ; Panic disorder F41.0 and BMI 45.0-49.9, adult Z68.42 [place] [address] [place] [address] 16750- 8038 January, Bipolar 1 disorder, depressed F31.9 ; PTSD (post-traumatic stress disorder) F43.10 and Panic attacks F41.0 [place] [address] [place] [address] 01351- 5704 January, Bipolar 1 disorder, depressed F31.9 ; PTSD (post-traumatic stress disorder) F43.10 and Panic attacks F41.0 [facility] [address], [place] [address] Dec, BMI 45.0-49.9, adult Z68.42 ; Bipolar disorder, in partial remission, most recent episode depressed F31.75 ; MESERET (generalized anxiety disorder) F41.1 and Panic disorder F41.0 [facility] [address] [place] [address] 85137- 6851 Dec, Bipolar 1 disorder, depressed F31.9 ; PTSD (post-traumatic stress disorder) F43.10 and Panic attacks F41.0 [facility] [address] [place] [address] 84602- 5460 Nov, Bipolar disorder, in partial remission, most recent episode depressed F31.75 ; MESERET (generalized anxiety disorder) F41.1 and Panic disorder F41.0 [facility] [address] [place] [address] 51747- 5801 Nov, [facility] [address] [place] [address] 15286- 5233 Nov, [facility] [id number] [place] [address] 56610- 6244 Oct, BMI 45.0-49.9, adult Z68.42 ; Bipolar disorder, in partial remission, most recent episode depressed F31.75 ; MESERET (generalized anxiety disorder) F41.1 and Panic disorder F41.[address] [id number] [id number] Oct, BMI 45.0-49.9, adult Z68.42 ; Coronary artery disease involving assinibo[place] and sioux coronary artery of assiniboine and sioux heart without angina pectoris I25.10 ; Hx of CABG Z95.1 ; Dyspnea on exertion R06.09 ; Essential hypertension I10 ; Mixed hyperlipidemia E78.2 ; Claudication I73.9 and Tobacco use Z72.0 [facility] [address] [facility] [id number] [id number] Oct, BMI 45.0-49.9, adult Z68.42 ; Bipolar 1 disorder, depressed F31.9 and Abscess L02.91 [facility] [id number] [place] [address] 87526- 2530 14 Oct, 2017 Bipolar 1 disorder, depressed F31.9 ; PTSD (post-traumatic stress disorder) F43.10 and Panic attacks F41.0 [facility] [id number] [place] [address] 24679- 4531 Sep, BMI 40.0-44.9, adult Z68.41 ; Mood disorder F39 ; MESERET ( generalized anxiety disorder) F41.1 and Panic disorder F41.0 [place] [id number] [place] [address] 99528- 2612 Sep, BMI 40.0-44.9, adult Z68.41 [place] [id number] [place] [address] 70939- 0774 Sep, Bipolar 1 disorder, depressed F31.9 ; PTSD (post-traumatic stress disorder) F43.10 and Panic attacks F41.0 [place] [id number] [place] [address] 50144- 7350 Aug, BMI 40.0-44.9, adult Z68.41 ; Mood disorder F39 ; MESERET ( generalized anxiety disorder) F41.1 and Panic disorder F41.0 [facility] [id number] [place] [address] 92171- 9642 Aug, Bipolar 1 disorder, depressed F31.9 ; PTSD (post-traumatic stress disorder) F43.10 and Panic attacks F41.0 [facility] [id number] [id number] Aug, [facility] [id number] [place] [address] [id number] Aug, COPD mixed type J44.9 [facility] [id number] [place] [address] 62160- 2269 Aug, [place] [address] 79167- 4547 Jul, PTSD (post-traumatic stress disorder) F43.10 ; Panic disorder F41.0 ; MESERET (generalized anxiety disorder) F41.1 ; Mood disorder F39 and BMI 40.0-44.9, adult Z68.41 [facility] [address] [facility] [id number], [place] [address]35 Jul, Bipolar 1 disorder, depressed F31.9 ; PTSD (post-traumatic stress disorder) F43.10 and Panic attacks F41.0 [place] [id number], [place] [address] Jul, Bipolar 1 disorder, depressed F31.9 [address] [place] [address] [id number] Jul, Anxiety F41.9 ; COPD mixed type J44.9 ; Essential hypertension I10 ; Bipolar 1 disorder F31.9 ; High risk medication use Z79.899 ; BMI 40.0-44.9, adult Z68.41 and Coronary artery disease involving coronary bypass graft of assiniboine and sioux heart without angina pectoris I25.810 [place] [id number] [address] Jul, Chronic obstructive pulmonary disease with acute exacerbation J44.1 and Acute nasopharyngitis J00 [address] [address] Jul, Anxiety F41.9 ; Mixed hyperlipidemia E78.2 and Bipolar 1 disorder F31.9 [facility] [address] [id number] [place] [address] Jun Bipolar 1 disorder F31.9 [facility] [address] [id number] [place] [address] [address] [place] [id number] [address] Jun, Anxiety F41.9 ; Elevated blood sugar R73.9 ; Mixed hyperlipidemia E78.2 ; COPD mixed type J44.9 ; Essential hypertension I10 ; Bipolar 1 disorder F31.9 ; Coronary artery disease involving coronary bypass graft of assiniboine and sioux heart without angina pectoris I25.810 ; High risk medication use Z79.899 ; Controlled substance agreement signed Z79.899 ; Elevated fasting glucose R73.01 ; Encounter for immunization Z23 and BMI 40.0-44.9, adult Z68.41 [place] [id number] [place] [address] [id number] Jun, Elevated blood sugar R73.9 [address] [place] [address] [id number] Jun, [place] [id number] [place] [address] [id number] Jun, Bipolar 1 disorder F31.9 ; Obesity (BMI 30-39.9) E66.9 ; Coronary artery disease involving coronary bypass graft of assinibo[place] and sioux heart without angina pectoris I25.810 and Essential hypertension I10 [address] [place] [address] [id number] Jun, Coronary artery disease involving coronary bypass graft of assiniboine and sioux heart without angina pectoris I25.810 ; Bipolar 1 disorder F31.9 ; Anxiety F41.9 ; Essential hypertension I10 ; COPD mixed type J44.9 and Mixed hyperlipidemia E78.2 [address] [place] [address] [id number] May, Severe single current episode of major depressive disorder, 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.2 ; Bipolar 1 disorder F31.9 ; Anxiety F41.9 ; PTSD (post -traumatic stress disorder) F43.10 ; Coronary artery disease involving coronary bypass graft of assiniboine and sioux heart without angina pectoris I25.810 ; Sleep apnea in adult G47.30 ; Essential hypertension I10 ; High risk medication use Z79.899 ; Obesity (BMI 30-39.9) E66.9 ; Encounter for therapeutic drug level monitoring Z51.81 and COPD mixed type J44.9 [address] [place] [address] [id number] May, Severe single current episode of major depressive disorder, 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.2 ; Bipolar 1 disorder F31.9 ; Anxiety F41.9 ; PTSD (post -traumatic stress disorder) F43.10 ; Mixed hyperlipidemia E78.2 ; Coronary artery disease involving coronary bypass graft of assiniboine and sioux heart without angina pectoris I25.810 ; Sleep apnea in adult G47.30 ; Essential hypertension I10 ; High risk medication use Z79.899 ; Controlled substance agreement signed Z79.899 ; Obesity (BMI 30-39.9) E66.9 ; Tobacco abuse Z72.0 ; Tobacco abuse counseling Z71.6 and COPD mixed type J44.9 [facility] [address] [place] [address] [id number] May, [facility] [id number] [place] [address] 55194- 3630 Dec, [facility] [id number] [place] [address] 28346- 5615 Dec, [facility] [id number] [place] [address] 54443- 6379 May, [facility] [id number] [place] [address] 82973- 5006 May, [facility] [id number] [place] [address] [id number] Dec, [facility] [id number] [place] [address] [id number]- 5102 Dec, [facility] [id number] [place] [address] [id number] Dec, [facility] [id number] [place] [address] 20809- 5956 Dec, [facility] [id number] [place] [address] 31444- 4046 Dec, [facility] [id number] [place] [address] 24587- 9986 Dec, [facility] [id number] [place] [address] 17858 2546 Nov, [facility] [address] [place] [address] [id number] Nov, [facility] [address] [id number] [place] [address] [id number] Nov, [facility] [address] [facility] [id number] [id number] Nov, [facility] [place] [facility] [address] [facility] [id number] [place] [address]- 3266 Nov, [facility] [place] [facility] [address] [facility] [id number] [place] [address]- 4936 Nov, [facility] [place] [facility] [address] [facility] [id number] [place] [address]- 4116 Nov, [facility] [place] [facility] [address] [facility] [id number] [place] [address]- 6098 Nov, [facility] [place] [facility] [address] [facility] [id number] [place] [address]- 9110 Nov, [facility] [place] [facility] [address] [place] [id number] [address]- 4835 Nov, [facility] [address] [facility] [place] [id number][place] [id number] Nov, [facility] [address] [facility] [place] [id number][place] [id number] Oct, [facility] [place] [facility] [address] [facility] [id number], [place] [address]- 0396 Oct, [facility] [address] [facility] [place] [id number], [place] [id number] Oct, [facility] [place] [facility] [id number], [place] [address]- 8116 Oct, [facility] [place] [facility] [address] [facility] [id number], [place] [address]- 2546 Oct, [facility] [address] [facility] [place] [id number], [place] [id number] Sep, [facility] [place] [facility] [address] [facility] [id number] [place] [address]- 7326 Sep, [facility] [address] [facility] [place] [id number], [place] [id number] Sep, [facility] [place] [facility] [address] [id number], [place] [address]- 3136 Sep, [facility] [address] [facility] [id number], [place] [address]- 9070 Sep, [facility] [place] [facility] [address] [facility] [id number], [place] [address]- 6604 Sep, [facility] [address] [facility] [id number], [place] [address]- 1560 Aug, [facility] [address] [id number], [place] [id number] Aug, [facility] [address] [facility] [id number], [place] [address]- 4356 Aug, [facility] [address] [facility] [place] [id number], [place] [id number] Jul, [facility] [address], [place] [address]- 2596 Jul, [facility] [address] [facility] [place] [id number], [place] [id number] Jul, [facility] [place] [facility] [id number], [place] [address]- 6562 Jul, [facility] [place] [facility] [id number], [place] [address]- 5629 May, [facility] [place] [facility] [address] [id number], [place] [address]- 7896 Apr, [facility] [place] [facility] [address] [facility] [id number], [place] [address]- 4496 Apr, [facility] [place] [facility] [address] [facility] [id number], [place] [address]- 2546 Mar, [facility] [address] [id number], [place] [id number] Feb, [facility] [address] [id number], [place] [id number] Feb, [facility] [address] [id number], [place] 0197[address] Feb, [facility] [address] [facility] [id number], [place] [address]- 1445 Feb, [facility] [place] [facility] [address] [facility] [id number], [place] [address]- 5246 January, [facility] [address] [facility] [id number], [place] [address]- 5825 January, [facility] [address] [id number] [place] [id number] Dec, [facility] [address] [id number] [place] [id number] Dec, [facility] [address] [id number] [place] [id number] Dec, [facility] [address] [id number], [place] [id number] Dec, [facility] [address] [id number], [place] [id number] Dec, [facility] [address] [id number], [place] [id number] Dec, [facility] [address], [place] [address]- 2541 Dec, [facility] [place] [facility] [address]100[place], [place] [address]- 2546 Dec, [facility] [address] [id number], [place] [id number] Nov, [facility] [address] [id number], [place] [id number] Nov, [facility] [address] [facility] [place] [id number], [place] [id number] Nov, [facility] [place] [facility] [address], [place] [address]- 0556 Oct, [facility] [place] [facility] [id number], [place] [address]- 8471 Oct, [facility] [place] [facility] [address] [id number], [place] [address]- 8901 Sep, [facility] [address] [id number] [place] [address]- 1576 Aug, [facility] [place] [facility] [address] [id number] [place] [address]- 2446 Aug, [facility] [place] [facility] [address] [id number] [place] [address]- 6466 Aug, [facility] [place] [facility] [address] [id number] [place] [address]- 1116 Aug, [facility] [address] [facility] [place] [id number] [place] [id number] Aug, [facility] [place] [facility] [address] [id number] [place] [address]- 0836 Aug, [facility] [place] [facility] [address] [facility] [id number] [place] [address]- 3126 Jul, [facility] [place] [facility] [address] [facility] [id number] [place] [address]- 4456 Jul, [facility] [place] [facility] [address] [facility] [id number] [place] [address]- 6976 Jul, [facility] [place] [facility] [address] [place] [address] [id number] [address]- 2546 Jul, [facility] [address] [id number], [place] [id number] Jun, [facility] [id number], [place] 81139026[address] Jun, [facility] [place] [facility] [address] [id number] [place] [address]- 2546 Jun, [facility] [address] [facility] [place] [id number], [place] [id number] Apr, [facility] [place] [facility] [address] [facility] [id number] [place] [address]- 2546 Apr, [facility] [place] [facility] [address] [facility] [id number] [place] [address]- 2546 Mar, [facility] [address] [id number] [place] [id number] Feb, [facility] [address] [id number] [place] [id number] Feb, [facility] [place] [facility] [address] [facility] [id number], [place] [address]- 0484 Feb, [facility] [address] [id number] [place] [id number] Feb, [facility] [place] [facility] [address] [facility] [id number], [place] [address]- 1235 Feb, [facility] [place] [facility] [address] [facility] [id number] [place] [address]- 2107 Feb, [facility] [place] [facility] [address], [place] [address]- 2134 Feb, [facility] [place] [facility] [address]100[place], [place] [address]- 5308 Feb, [facility] [address] [facility] [place] [id number], [place] [id number] January, [facility] [address] [id number], [place] 590983766 Dec, [facility] [place] [facility] [address] [facility] [id number], [place] [address]- 5473 Dec, [facility] [place] [facility] [address] [facility] [id number], [place] [address]- 9769 Dec, [facility] [address] [id number], [place] [id number] Dec, [facility] [place] [facility] [address] [facility] [id number], [place] [address]- 5250 Dec, [facility] [address] [id number] [place] [id number] Dec, [facility] [place] [address] [id number] [place] [id number] Nov, [facility] [place] [address] [id number] [place] [id number] Nov, [facility] [place] [address] [id number] [place] [id number] Nov, [facility] [place] [address] [id number] [place] [id number] Nov, [facility] [place] [facility] [id number], [place] [address] Oct, [facility] [place] [address] [id number] [place] [id number] Oct, [facility] [place] [address] [id number] [place] [id number] Oct, [facility] [place] [address] [id number] [place] [id number] Oct, [facility] [place] [address] [id number] [place] [id number] Oct, [facility] [place] [address] [id number] [place] [id number] Sep, [facility] [place] [address] [id number] [place] [id number] Sep, [facility] [id number], [place] [address] Sep, [facility] [place] [facility] [id number] [place] [address] Sep, [facility] [place] [facility] [id number], [place] [address] Sep, [facility] [place] [facility] [id number] [place] [address] Sep, [facility] [place] [facility] [id number] [place] [address] Aug, [facility] [place] [facility] [id number] [place] [address] Aug, [facility] [place] [facility] [id number], [place] [address] Aug, [facility] [place] [facility] [id number] [place] [address] Aug, [facility] [place] [facility] [address] [id number] [place] [address] Aug, [facility] [place] [facility] [address] [id number] [place] [address] Aug, [facility] [place] [facility] [address] [id number] [place] [address] Aug, [facility] [place] [facility] [address] [id number] [place] [address] Aug, [facility] [place] [facility] [address] [id number] [place] [address] Jun, [facility] [place] [facility] [address] [id number] [place] [address] Jun, [facility] [place] [facility] [address] [id number] [place] [address] Jun, [facility] [place] [facility] [address] [id number] [place] [address] Jun, [facility] [place] [facility] [address] [id number] [place] [address] 14 Jun, 2011 [facility] [place] [facility] [address] [id number] [place] [address] Jun, [facility] [place] [facility] [address] [id number], [place] [address] Jun, [facility] [place] [facility] [address] [id number], [place] [address] Jun, [facility] [place] [facility] [address] [id number] [place] [address] Jun, [facility] [place] [facility] [address] [id number] [place] [address] 14 May, 2011 [facility] [facility] [facility] [address] [id number] [place] [address] 10 Apr, 2011 [facility] [place] [facility] [address] [id number], [place] [address] 16 Feb, 2011 [facility] [id number] [address] Dec, [facility] [id number] [address] Aug, [facility] [id number], [place] [address] Aug, [facility] [id number] [place] [id number] Aug, [facility] [id number] [place] [id number] Aug, [facility] [id number] [address] Jul, [facility] [id number] [address] Jun, [facility] [id number] [address] Jun, IMMUNIZATIONS No Known Immunizations SOCIAL HISTORY Never Assessed REASON FOR VISIT f/u Shayy PLAN OF CARE Activity Details Follow Up 4 Weeks Reason: VITAL SIGNS Height 59 in 2018-06-07 Weight 227.9 lbs 2018-06-07 Heart Rate 76 bpm 2018-06-07 Respiratory Rate 18 2018-06-07 BMI 46.03 kg/m2 2018-06-07 Blood pressure systolic 150 mmHg 2018-06-07 Blood pressure diastolic 88 mmHg 2018-06-07 MEDICATIONS Medication Instructions Dosage Frequency Start Date End Date Duration Status Zyrtec Allergy 10 MG Orally Once a day 1 tablet 24h 0 Active Trazodone HCl 100 MG Orally at night as needed for sleep 0.5 -1 tablet Active Spiriva Respimat 2.5 MCG/ACT Inhalation Once a day 1 puff 24h 0 Active Nicotine Step 2 14 MG/24HR Transdermal Once a day 1 patch to skin 24h Active Atorvastatin Calcium 40 mg Orally Once a day 1 tablet 24h 0 Active Albuterol Sulfate (2.5 MG/3ML) 0.083% Inhalation Three times a day as needed 3 ml 0 Active Alprazolam 0.5 MG Orally Three times a day as needed for anxeity 1 tablet Active [place] Carbonate 300 MG Orally daily 2 capsules in morning and one at night 24h Active Aspir-81 81 MG Orally Once a day 1 tablet 24h 0 Active Losartan Potassium-HCTZ 50-12.5 MG orally Twice per day 1 tablet 0 Active Ventolin HFA 108 (90 Base) MCG/ACT Inhalation every 4 hrs 2 puffs as needed 4h 0 Active Singulair 10 MG Orally Once a day 1 tablet 24h 0 Active Symbicort 160-4.5 MCG/ACT Inhalation Twice a day 2 puffs 12h 0 Active Celexa 10 MG Orally Once a day 1 tablet 24h Feb, Active RESULTS No Results PROCEDURES No Known [...] Coronary atherosclerosis of unspecified type of vessel, [place] or graft Surgical History section x4 Surgical History CABG x3 Surgical History Left arm-Plate and screws placed Hospitalization History Surgery(s)/Childbirth(s) only
--- OUTSIDE RECORDS SUMMARY | 2019-02-02 13:52 | XMS REPORT ---
Author Author YUE MACK [facility] Address [address] [place] [address] Care Team Providers Care Collections Analyst Name Role Phone MARTINA YUE Unavailable PROBLEMS Type Condition ICD9-CM Code LXV29-NV Code Onset Dates Condition Status SNOMED Code Problem Chronic obstructive pulmonary disease with acute exacerbation J44.1 Active 072739387 Problem MESERET (generalized anxiety disorder) F41.1 Active 46200611 Problem Panic disorder F41.0 Active 330117548 Problem Morbid (severe) obesity due to excess calories E66.01 Active 72928386403313 Problem Body mass index (BMI) of 45.0-49.9 in adult Z68.42 Active 898632084 Problem Coronary artery disease involving eagle coronary artery of eagle heart without angina pectoris I25.10 Active 0177855960542 Problem Mood disorder F39 Active 35197135 Problem Bipolar disorder, in partial remission, most recent episode depressed F31.75 Active 95996183 Problem Claudication I73.9 Active 246089379 Problem Mixed hyperlipidemia E78.2 Active 393718568 Problem PTSD (post-traumatic stress disorder) F43.10 Active 47666469 Problem Sleep apnea in adult G47.30 Active 96897433 Problem COPD mixed type J44.9 Active 21786321 Problem Obesity (BMI 30-39.9) E66.9 Active 877004911 Problem Coronary artery disease involving coronary bypass graft of eagle heart without angina pectoris I25.810 Active 385819715 Problem Bipolar 1 disorder F31.9 Active 456783546 Problem Essential hypertension I10 Active 71652090 ALLERGIES Substance Reaction Event Type Date Status Penicillin V Potassium Swelling/hives Drug Allergy May, Active Abilify dizziness Drug Allergy May, Active ENCOUNTERS Encounter Location Date Diagnosis [facility] [address] [facility] [id number] [address] Jul, [facility] [id number] [place] [address] 51382- 5162 Jun, [address] [place] [address] [id number] May, Hidradenitis suppurativa L73.2 and BMI 45.0-49.9, adult Z68.42 [facility] [id number] [place] [address] 13145- 1694 May, Bipolar 1 disorder, depressed F31.9 ; PTSD (post-traumatic stress disorder) F43.10 and Panic attacks F41.0 [place] [id number] [place] [address] 48665- 7960 May, Bipolar disorder, in partial remission, most recent episode depressed F31.75 ; MESERET (generalized anxiety disorder) F41.1 ; Panic disorder F41.0 and BMI 45.0-49.9, adult Z68.42 [place] [address] [address] Apr, Bipolar disorder, in partial remission, most recent episode depressed F31.75 ; MESERET (generalized anxiety disorder) F41.1 ; Panic disorder F41.0 and BMI 45.0-49.9, adult Z68.42 [address] [id number] [place] [address] [id number] Apr, [facility] [id number] [place] [address] 80758- 2433 Apr, Bipolar 1 disorder, depressed F31.9 [facility] [id number] [place] [address] 86352- 3693 Mar, Bipolar disorder, in partial remission, most recent episode depressed F31.75 ; MESERET (generalized anxiety disorder) F41.1 ; Panic disorder F41.0 and BMI 45.0-49.9, adult Z68.42 [address] [place] [address] [id number] Mar, High risk medication use Z79.899 and Mixed hyperlipidemia E78.2 [id number] [place] [address] [id number] Mar, COPD mixed type J44.9 ; Essential hypertension I10 ; Sleep apnea in adult G47.30 ; Mixed hyperlipidemia E78.2 ; Morbid (severe) obesity due to excess calories E66.01 ; Body mass index (BMI) of 45.0-49.9 in adult Z68.42 ; Tobacco abuse Z72.0 ; Tobacco abuse counseling Z71.6 and BMI 45.0-49.9, adult Z68.42 [place] [id number] [place] [address] 20987- 9341 Feb, Bipolar disorder, in partial remission, most recent episode depressed F31.75 ; MESERET (generalized anxiety disorder) F41.1 ; Panic disorder F41.0 and BMI 45.0-49.9, adult Z68.42 [place] [address] [place] [address] 72475- 0038 Feb, Bipolar 1 disorder, depressed F31.9 ; PTSD (post-traumatic stress disorder) F43.10 and Panic attacks F41.0 [place] [address] [place] [address] 08671- 1391 Feb, High risk medication use Z79.899 [place] [id number] [place] [address] 02313- 9044 January, High risk medication use Z79.899 ; Bipolar disorder, in partial remission, most recent episode depressed F31.75 ; MESERET (generalized anxiety disorder) F41.1 ; Panic disorder F41.0 and BMI 45.0-49.9, adult Z68.42 [place] [address] [place] [address] 54220- 5109 January, Bipolar 1 disorder, depressed F31.9 ; PTSD (post-traumatic stress disorder) F43.10 and Panic attacks F41.0 [place] [id number] [place] [address] 13068- 8770 January, Bipolar 1 disorder, depressed F31.9 ; PTSD (post-traumatic stress disorder) F43.10 and Panic attacks F41.0 [place] [address]100[place] [address] 9161 Dec, BMI 45.0-49.9, adult Z68.42 ; Bipolar disorder, in partial remission, most recent episode depressed F31.75 ; MESERET (generalized anxiety disorder) F41.1 and Panic disorder F41.0 [facility] [address]100[place] [address] 1695 Dec, Bipolar 1 disorder, depressed F31.9 ; PTSD (post-traumatic stress disorder) F43.10 and Panic attacks F41.0 [place] [address] [place] [address] 46789- 1953 Nov, Bipolar disorder, in partial remission, most recent episode depressed F31.75 ; MESERET (generalized anxiety disorder) F41.1 and Panic disorder F41.0 [place] [address]005[address] [address] 1866 Nov, [place] [address] [place] [address] 76603- 5561 Nov, [place] [address] [place] [address] 20330- 0635 Oct, BMI 45.0-49.9, adult Z68.42 ; Bipolar disorder, in partial remission, most recent episode depressed F31.75 ; MESERET (generalized anxiety disorder) F41.1 and Panic disorder F41.[address] [id number] Oct, BMI 45.0-49.9, adult Z68.42 ; Coronary artery disease involving eagle coronary artery of eagle heart without angina pectoris I25.10 ; Hx of CABG Z95.1 ; Dyspnea on exertion R06.09 ; Essential hypertension I10 ; Mixed hyperlipidemia E78.2 ; Claudication I73.9 and Tobacco use Z72.0 [facility] [address] [id number] [id number] Oct, BMI 45.0-49.9, adult Z68.42 ; Bipolar 1 disorder, depressed F31.9 and Abscess L02.91 [facility] [id number] [place] [address] 06374- 7302 Oct, Bipolar 1 disorder, depressed F31.9 ; PTSD (post-traumatic stress disorder) F43.10 and Panic attacks F41.0 [facility] [id number] [place] [address] 60278- 9535 Sep, BMI 40.0-44.9, adult Z68.41 ; Mood disorder F39 ; MESERET ( generalized anxiety disorder) F41.1 and Panic disorder F41.0 [place] [id number] [place] [address] 58171- 6954 Sep, BMI 40.0-44.9, adult Z68.41 [place] [id number] [place] [address] 77672- 4107 Sep, Bipolar 1 disorder, depressed F31.9 ; PTSD (post-traumatic stress disorder) F43.10 and Panic attacks F41.0 [place] [address] [place] [address] 38167- 8414 Aug, BMI 40.0-44.9, adult Z68.41 ; Mood disorder F39 ; MESERET ( generalized anxiety disorder) F41.1 and Panic disorder F41.0 [facility] [id number] [place] [address] 46640- 0662 Aug, Bipolar 1 disorder, depressed F31.9 ; PTSD (post-traumatic stress disorder) F43.10 and Panic attacks F41.0 [facility] [id number] [place] [address] [id number] Aug, [facility] [id number] [place] [address] [id number] Aug, COPD mixed type J44.9 [facility] [address] [place] [address] 62680- 8117 Aug, [place] [id number] [place] [address] 53455- 9491 Jul, PTSD (post-traumatic stress disorder) F43.10 ; Panic disorder F41.0 ; MESERET (generalized anxiety disorder) F41.1 ; Mood disorder F39 and BMI 40.0-44.9, adult Z68.41 [facility] [address] [facility] [id number] [place] [address] Jul, Bipolar 1 disorder, depressed F31.9 ; PTSD (post-traumatic stress disorder) F43.10 and Panic attacks F41.0 [facility] [id number][place] [id number] Jul, Bipolar 1 disorder, depressed F31.9 [address] [id number] Jul, Anxiety F41.9 ; COPD mixed type J44.9 ; Essential hypertension I10 ; Bipolar 1 disorder F31.9 ; High risk medication use Z79.899 ; BMI 40.0-44.9, adult Z68.41 and Coronary artery disease involving coronary bypass graft of eagle heart without angina pectoris I25.810 [place] [id number] [address] Jul, Chronic obstructive pulmonary disease with acute exacerbation J44.1 and Acute nasopharyngitis J00 [address]100[place] [id number] Jul, Anxiety F41.9 ; Mixed hyperlipidemia E78.2 and Bipolar 1 disorder F31.9 [facility] [address] [id number] [place] [address] Jun Bipolar 1 disorder F31.9 [facility] [address] [id number] [place] [address] Jun [place] [id number] [id number] Jun, Anxiety F41.9 ; Elevated blood sugar R73.9 ; Mixed hyperlipidemia E78.2 ; COPD mixed type J44.9 ; Essential hypertension I10 ; Bipolar 1 disorder F31.9 ; Coronary artery disease involving coronary bypass graft of eagle heart without angina pectoris I25.810 ; High risk medication use Z79.899 ; Controlled substance agreement signed Z79.899 ; Elevated fasting glucose R73.01 ; Encounter for immunization Z23 and BMI 40.0-44.9, adult Z68.41 [place] [id number][place] [id number] Jun, Elevated blood sugar R73.9 [address]100[place] [id number] Jun, [place] [id number] [place] [address] [id number] Jun, Bipolar 1 disorder F31.9 ; Obesity (BMI 30-39.9) E66.9 ; Coronary artery disease involving coronary bypass graft of eagle heart without angina pectoris I25.810 and Essential hypertension I10 [address] [place] [address] [id number] Jun, Coronary artery disease involving coronary bypass graft of eagle heart without angina pectoris I25.810 ; Bipolar 1 disorder F31.9 ; Anxiety F41.9 ; Essential hypertension I10 ; COPD mixed type J44.9 and Mixed hyperlipidemia E78.2 [address]100[place] [id number] May, Severe single current episode of major depressive disorder, 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.2 ; Bipolar 1 disorder F31.9 ; Anxiety F41.9 ; PTSD (post -traumatic stress disorder) F43.10 ; Coronary artery disease involving coronary bypass graft of eagle heart without angina pectoris I25.810 ; Sleep apnea in adult G47.30 ; Essential hypertension I10 ; High risk medication use Z79.899 ; Obesity (BMI 30-39.9) E66.9 ; Encounter for therapeutic drug level monitoring Z51.81 and COPD mixed type J44.9 [address] [place] [address] [id number] May, Severe single current episode of major depressive disorder, 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.2 ; Bipolar 1 disorder F31.9 ; Anxiety F41.9 ; PTSD (post -traumatic stress disorder) F43.10 ; Mixed hyperlipidemia E78.2 ; Coronary artery disease involving coronary bypass graft of eagle heart without angina pectoris I25.810 ; Sleep apnea in adult G47.30 ; Essential hypertension I10 ; High risk medication use Z79.899 ; Controlled substance agreement signed Z79.899 ; Obesity (BMI 30-39.9) E66.9 ; Tobacco abuse Z72.0 ; Tobacco abuse counseling Z71.6 and COPD mixed type J44.9 [facility] [id number] [place] [address] [id number] May, [facility] [id number] [place] [address] 43043- 6946 Dec, [facility] [id number] [place] [address] 43163- 5894 Dec, [facility] [id number] [place] [address] 54136- 5376 May, [facility] [id number] [place] [address] 99008- 7306 May, [facility] [id number] [place] [address] [id number] Dec, [facility] [id number] [place] [address] 89240- 5728 Dec, [facility] [id number] [place] [address] [id number] Dec, [facility] [id number] [place] [address] 69756- 4136 Dec, [facility] [id number] [place] [address] 60923 2546 Dec, [facility] [id number] [place] [address] 34556 2546 Dec, [facility] [id number] [place] [address] 21258 2546 Nov, [facility] [id number] [place] [address] [id number] Nov, [facility] [id number] [place] [address] [id number] Nov, [facility] [address] [id number], [place] [id number] Nov, [facility] [address] [facility] [id number] [place] [address]- 0376 Nov, [facility] [place] [facility] [address] [facility] [id number] [place] [address] 2546 Nov, [facility] [place] [facility] [address] [facility] [id number] [place] [address]- 0183 Nov, [facility] [place] [facility] [address] [facility] [id number] [place] [address]- 0450 Nov, [facility] [place] [facility] [address] [facility] [id number] [place] [address]- 4351 Nov, [facility] [place] [facility] [id number] [address]- 7433 Nov, [facility] [id number], [place] [id number] Nov, [facility] [address] [id number], [place] [id number] Oct, [facility] [place] [facility] [id number] [address] 2546 Oct, [facility] [address] [id number], [place] [id number] Oct, [facility] [place] [facility] [id number] [address] 2546 Oct, [facility] [place] [facility] [address] [facility] [id number] [address]- 2546 Oct, [facility] [address] [id number], [place] [id number] Sep, [facility] [place] [facility] [address] [facility] [id number] [address]- 5076 Sep, [facility] [address] [id number], [place] [id number] Sep, [facility] [place] [facility] [address] [facility] [id number] [address]- 6966 Sep, [facility] [address] [facility] [id number] [address]- 4856 Sep, [facility] [place] [facility] [address] [id number] [address]- 0036 Sep, [facility] [address]00565100[place] [address] 2546 Aug, [facility] [address] [id number], [place] [id number] Aug, [facility] [address] [facility] [id number] [place] [address]- 2546 Aug, [facility] [address] [id number], [place] [id number] Jul, [facility] [address]00565100[place] [address]- 2546 Jul, [facility] [address] [id number], [place] [id number] Jul, [facility] [place] [facility] [address]00565100[place] [address]- 9806 Jul, [facility] [place] [facility] [address]005[address]100[place] [address]- 4806 May, [facility] [place] [facility] [address]00565100[place] [address]- 2546 Apr, [facility] [place] [facility] [address]100[place] [address]- 2546 Apr, [facility] [place] [facility] [address] [facility] [id number] [place] [address]- 2546 Mar, [facility] [address] [id number], [place] [id number] Feb, [facility] [address] [id number], [place] 059481161 Feb, [facility] [address] [id number], [place] [id number] Feb, [facility] [place] [facility] [address] [facility] [id number] [address]- 6817 Feb, [facility] [place] [facility] [address] [facility] [id number] [address]- 5037 January, [facility] [place] [facility] [address] [facility] [id number] [address]- 8081 January, [facility] [address] [id number] [place] [id number] Dec, [facility] [address] [id number] [place] [id number] Dec, [facility] [address] [id number] [place] [id number] Dec, [facility] [address] [id number] [place] [id number] Dec, [facility] [address] [id number] [place] [id number] Dec, [facility] [address] [id number] [place] [id number] Dec, [facility] [address]00565100[place] [address]- 2548 Dec, [facility] [place] [facility] [address]00565100[place] [address]- 2546 Dec, [facility] [address] [id number] [place] [id number] Nov, [facility] [id number], [place] 048407633 Nov, [facility] [address] [id number], [place] [id number] Nov, [facility] [place] [facility] [address] [facility] [id number] [address]- 6373 Oct, [facility] [place] [facility] [address] [facility] [id number] [address]- 3772 Oct, [facility] [place] [facility] [address]00565100[place] [address]- 2228 Sep, [facility] [place] [facility] [address] [id number] [place] [address]- 5271 Aug, [facility] [place] [facility] [address] [id number] [place] [address]- 2076 Aug, [facility] [place] [facility] [address] [id number] [place] [address]- 6626 Aug, [facility] [place] [facility] [address] [id number] [place] [address]- 3616 Aug, [facility] [address] [id number], [place] 206005540 Aug, [facility] [place] [facility] [address] [id number] [place] [address]- 8096 Aug, [facility] [place] [facility] [address] [id number] [place] [address]- 3642 Jul, [facility] [place] [facility] [address] [id number] [place] [address]- 9146 Jul, [facility] [place] [facility] [address] [id number] [place] [address]- 4976 Jul, [facility] [place] [facility] [address] [id number] [place] [address]- 0756 Jul, [facility] [address] [id number], [place] [id number] Jun, [facility] [address] [id number], [place] 206066479 Jun, [facility] [place] [facility] [address] [id number] [address]- 2546 Jun, [facility] [address] [id number], [place] [id number] Apr, [facility] [place] [facility] [address] [id number] [address]- 2546 Apr, [facility] [place] [facility] [address] [id number] [place] [address]- 2546 Mar, [facility] [address] [id number] [place] [id number] Feb, [facility] [address] [id number] [place] [id number] Feb, [facility] [place] [facility] [address] [facility] [id number] [place] [address]- 5950 Feb, [facility] [address] [id number] [place] [id number] Feb, [facility] [place] [facility] [address] [facility] [id number] [address]- 9372 Feb, [facility] [place] [facility] [address] [facility] [id number] [place] [address]- 7604 Feb, [facility] [place] [facility] [address] [facility] [id number] [address]- 3061 Feb, [facility] [place] [facility] [address]005[address]100[place] [address]- 6790 Feb, [facility] [address] [id number][place] [id number] January, [facility] [address] [id number], [place] 586102395 Dec, [facility] [place] [facility] [address] [facility] [id number] [address]- 9883 Dec, [facility] [place] [facility] [address] [facility] [id number] [address] Dec, [facility] [place] [address] [id number][place] [id number] Dec, [facility] [place] [facility] [address] [id number] [place] [address] Dec, [facility] [place] [address] [id number] [place] [id number] Dec, [facility] [place] [address] [id number] [place] [id number] Nov, [facility] [place] [address] [id number] [place] [id number] Nov, [facility] [place] [address] [id number] [place] [id number] Nov, [facility] [place] [address] [id number] [place] [id number] Nov, [facility] [address] [facility] [id number] [place] [address] Oct, [facility] [place] [address] [id number] [place] [id number] Oct, [facility] [place] [address] [id number] [place] [id number] Oct, [facility] [place] [address] [id number] [place] [id number] Oct, [facility] [address] [id number] [place] [id number] Oct, [facility] [place] [address] [id number] [place] [id number] Sep, [facility] [place] [address] [id number] [place] [id number] Sep, [facility] [place] [facility] [id number] [address] Sep, [facility] [place] [facility] [id number] [address] Sep, [facility] [place] [facility] [id number] [address] Sep, [facility] [place] [facility] [id number] [address] Sep, [facility] [place] [facility] [id number] [address] Aug, [facility] [place] [facility] [id number] [address] Aug, [facility] [place] [facility] [id number] [address] Aug, [facility] [place] [facility] [id number] [address] Aug, [facility] [place] [facility] [address] [id number] [place] [address] Aug, [facility] [place] [facility] [address] [id number] [place] [address] Aug, [facility] [place] [facility] [address] [id number] [place] [address] Aug, [facility] [place] [facility] [address] [id number] [place] [address] Aug, [facility] [place] [facility] [address] [id number] [place] [address] Jun, [facility] [place] [facility] [address] [id number] [place] [address] Jun, [facility] [place] [facility] [address] [id number] [place] [address] Jun, [facility] [place] [facility] [address] [id number] [place] [address] Jun, [facility] [place] [facility] [address] [id number] [place] [address] Jun, [facility] [place] [facility] [address] [id number] [place] [address] Jun, [facility] [place] [facility] [address] [id number] [place] [address] Jun, [facility] [place] [facility] [address] [id number] [address] Jun, [facility] [place] [facility] [address] [id number] [place] [address] Jun, [facility] [place] [facility] [address] [id number] [place] [address] 14 May, 2011 [facility] [place] [facility] [address] [id number] [place] [address] 10 Apr, 2011 [facility] [place] [facility] [address] [id number] [address] Feb, [facility] [address] [id number] [address] Dec, [facility] [address] [id number] [address] Aug, [facility] [id number] [address] Aug, [facility] [id number] [place] [address] Aug, [facility] [id number] [address] Aug, [facility] [id number] [address] Jul, [facility] [id number] [address] Jun, [facility] [address] [id number] [address] Jun, IMMUNIZATIONS No Known Immunizations SOCIAL HISTORY Never Assessed REASON FOR VISIT Pt c/o painful cysts to right axilla. States she has them chronicly but these are worse then usual [facility] PLAN OF CARE Activity Details Follow Up if not improving with PCP or reg follow up Reason: VITAL SIGNS Height 59 in 2018-06-13 Weight 228.1 lbs 2018-06-13 Temperature 96.8 degrees Fahrenheit 2018-06-13 Heart Rate 82 bpm 2018-06-13 Respiratory Rate 16 2018-06-13 BMI 46.07 kg/m2 2018-06-13 Blood pressure systolic 148 mmHg 2018-06-13 Blood pressure diastolic 88 mmHg 2018-06-13 MEDICATIONS Medication Instructions Dosage Frequency Start Date End Date Duration Status Singulair 10 MG Orally Once a day 1 tablet 24h 0 Active [place] Carbonate 300 MG Orally daily 2 capsules in morning and one at night 24h Active Zyrtec Allergy 10 MG Orally Once a day 1 tablet 24h 0 Active Ventolin HFA 108 (90 Base) MCG/ACT Inhalation every 4 hrs 2 puffs as needed 4h 0 Active Trazodone HCl 100 MG Orally at night as needed for sleep 0.5 -1 tablet Active Aspir-81 81 MG Orally Once a day 1 tablet 24h 0 Active Atorvastatin Calcium 40 mg Orally Once a day 1 tablet 24h 0 Active Symbicort 160-4.5 MCG/ACT Inhalation Twice a day 2 puffs 12h 0 Active Spiriva Respimat 2.5 MCG/ACT Inhalation Once a day 1 puff 24h 0 Active Celexa 10 MG Orally Once a day 1 tablet 24h 26 Feb, 2018 Active Bactrim DS 800-160 MG Orally Twice a day 1 tablet 12h 24 May, 2018 Jun, 7 days Active Albuterol Sulfate (2.5 MG/3ML) 0.083% Inhalation Three times a day as needed 3 ml 0 Active Losartan Potassium-HCTZ 50-12.5 MG orally Twice per day 1 tablet 0 Active Alprazolam 0.5 MG Orally Three times a day as needed for anxeity 1 tablet Active RESULTS No Results PROCEDURES No Known [...] Coronary atherosclerosis of unspecified type of vessel, eagle or graft Surgical History section x4 Surgical History CABG x3 Surgical History Left arm-Plate and screws placed Hospitalization History Surgery(s)/Childbirth(s) only
--- OUTSIDE RECORDS SUMMARY | 2019-02-02 13:53 | XMS REPORT ---
Author Author ЕКАТЕРИНА MTZ Organization [facility] Address [address] [place] [address] Care Team Providers Care Surgical Coordinator Name Role Phone ЕКАТЕРИНА MTZ Unavailable PROBLEMS Type Condition ICD9-CM Code YIF72-TR Code Onset Dates Condition Status SNOMED Code Problem Chronic obstructive pulmonary disease with acute exacerbation J44.1 Active 916097765 Problem MESERET (generalized anxiety disorder) F41.1 Active 62281021 Problem Panic disorder F41.0 Active 130192976 Problem Morbid (severe) obesity due to excess calories E66.01 Active 60128581379789 Problem Body mass index (BMI) of 45.0-49.9 in adult Z68.42 Active 167885410 Problem Coronary artery disease involving flandreau coronary artery of flandreau heart without angina pectoris I25.10 Active 1685976218680 Problem Mood disorder F39 Active 72748397 Problem Bipolar disorder, in partial remission, most recent episode depressed F31.75 Active 94743498 Problem Claudication I73.9 Active 922350714 Problem Mixed hyperlipidemia E78.2 Active 339716145 Problem PTSD (post-traumatic stress disorder) F43.10 Active 64843857 Problem Sleep apnea in adult G47.30 Active 91706639 Problem COPD mixed type J44.9 Active 26040179 Problem Obesity (BMI 30-39.9) E66.9 Active 611268914 Problem Coronary artery disease involving coronary bypass graft of flandreau heart without angina pectoris I25.810 Active 577268497 Problem Bipolar 1 disorder F31.9 Active 720603142 Problem Essential hypertension I10 Active 07234408 ALLERGIES No Information ENCOUNTERS Encounter Location Date Diagnosis [facility] [address] [id number] [address] Jul, [facility] [address] [id number] [address] 2019 Jun, [facility] [id number] [place] [address]2847- 4869 May, Bipolar 1 disorder, depressed F31.9 ; PTSD (post-traumatic stress disorder) F43.10 and Panic attacks F41.0 [facility] [address] [place] [address] 25331- 8336 May, Bipolar disorder, in partial remission, most recent episode depressed F31.75 ; MESERET (generalized anxiety disorder) F41.1 ; Panic disorder F41.0 and BMI 45.0-49.9, adult Z68.42 [facility] [id number] [place] [address] 68968- 9736 Apr, Bipolar disorder, in partial remission, most recent episode depressed F31.75 ; MESERET (generalized anxiety disorder) F41.1 ; Panic disorder F41.0 and BMI 45.0-49.9, adult Z68.42 [id number] [place] [id number] Apr, [address] [id number] [place] [address] 99574- 9842 Apr, Bipolar 1 disorder, depressed F31.9 [address] [id number] [place] [address] 13640- 2638 Mar, Bipolar disorder, in partial remission, most recent episode depressed F31.75 ; MESERET (generalized anxiety disorder) F41.1 ; Panic disorder F41.0 and BMI 45.0-49.9, adult Z68.42 [address] [place] [address] [id number] Mar, High risk medication use Z79.899 and Mixed hyperlipidemia E78.2 [id number] [place] [address] [id number] Mar, COPD mixed type J44.9 ; Essential hypertension I10 ; Sleep apnea in adult G47.30 ; Mixed hyperlipidemia E78.2 ; Morbid (severe) obesity due to excess calories E66.01 ; Body mass index (BMI) of 45.0-49.9 in adult Z68.42 ; Tobacco abuse Z72.0 ; Tobacco abuse counseling Z71.6 and BMI 45.0-49.9, adult Z68.42 [address] [id number] [place] [address] 70878- 1578 26 Feb, 2018 Bipolar disorder, in partial remission, most recent episode depressed F31.75 ; MESERET (generalized anxiety disorder) F41.1 ; Panic disorder F41.0 and BMI 45.0-49.9, adult Z68.42 [place] [id number] [place] [address] 97078- 6424 Feb, Bipolar 1 disorder, depressed F31.9 ; PTSD (post-traumatic stress disorder) F43.10 and Panic attacks F41.0 [address] [id number] [place] [address] 05478- 0929 Feb, High risk medication use Z79.899 [address] [id number] [place] [address] 17420- 8883 January, High risk medication use Z79.899 ; Bipolar disorder, in partial remission, most recent episode depressed F31.75 ; MESERET (generalized anxiety disorder) F41.1 ; Panic disorder F41.0 and BMI 45.0-49.9, adult Z68.42 [address] [address] [place] [address] 69923- 4320 January, Bipolar 1 disorder, depressed F31.9 ; PTSD (post-traumatic stress disorder) F43.10 and Panic attacks F41.0 [address] [place] [address] 22198- 4576 January, Bipolar 1 disorder, depressed F31.9 ; PTSD (post-traumatic stress disorder) F43.10 and Panic attacks F41.0 [address] [address] [place] [address] 84443- 3766 Dec, BMI 45.0-49.9, adult Z68.42 ; Bipolar disorder, in partial remission, most recent episode depressed F31.75 ; MESERET (generalized anxiety disorder) F41.1 and Panic disorder F41.0 [facility] [id number] [address] 0904 Dec, Bipolar 1 disorder, depressed F31.9 ; PTSD (post-traumatic stress disorder) F43.10 and Panic attacks F41.0 [facility] [address] [address] Nov, Bipolar disorder, in partial remission, most recent episode depressed F31.75 ; MESERET (generalized anxiety disorder) F41.1 and Panic disorder F41.0 [facility] [address] [address]- 7753 Nov, [facility] [address] [place] [address] 57418- 2680 Nov, [facility] [address] [address] 1152 Oct, BMI 45.0-49.9, adult Z68.42 ; Bipolar disorder, in partial remission, most recent episode depressed F31.75 ; MESERET (generalized anxiety disorder) F41.1 and Panic disorder F41.[address] [id number] 23 Oct, 2017 BMI 45.0-49.9, adult Z68.42 ; Coronary artery disease involving flandreau coronary artery of flandreau heart without angina pectoris I25.10 ; Hx of CABG Z95.1 ; Dyspnea on exertion R06.09 ; Essential hypertension I10 ; Mixed hyperlipidemia E78.2 ; Claudication I73.9 and Tobacco use Z72.0 [facility] [address] [facility] [id number] [id number] 15 Oct, 2017 BMI 45.0-49.9, adult Z68.42 ; Bipolar 1 disorder, depressed F31.9 and Abscess L02.91 [facility] [address] [facility] [id number] [address] 14 Oct, 2017 Bipolar 1 disorder, depressed F31.9 ; PTSD (post-traumatic stress disorder) F43.10 and Panic attacks F41.0 [place] [id number] [place] [address] 23555- 3046 Sep, BMI 40.0-44.9, adult Z68.41 ; Mood disorder F39 ; MESERET ( generalized anxiety disorder) F41.1 and Panic disorder F41.0 [place] [id number] [place] [address] 17000- 6560 Sep, BMI 40.0-44.9, adult Z68.41 [place] [id number] [place] [address] 13361- 6876 Sep, Bipolar 1 disorder, depressed F31.9 ; PTSD (post-traumatic stress disorder) F43.10 and Panic attacks F41.0 [place] [id number] [place] [address] 16869- 3989 Aug, BMI 40.0-44.9, adult Z68.41 ; Mood disorder F39 ; MESERET ( generalized anxiety disorder) F41.1 and Panic disorder F41.0 [place] [id number] [place] [address] 51076- 6040 Aug, Bipolar 1 disorder, depressed F31.9 ; PTSD (post-traumatic stress disorder) F43.10 and Panic attacks F41.0 [facility] [address] [place] [address] [id number] Aug, [facility] [id number] [place] [address] [id number] Aug, COPD mixed type J44.9 [place] [id number] [place] [address] 62100- 5738 Aug, [place] [id number] [place] [address] 95193- 2579 Jul, PTSD (post-traumatic stress disorder) F43.10 ; Panic disorder F41.0 ; MESERET (generalized anxiety disorder) F41.1 ; Mood disorder F39 and BMI 40.0-44.9, adult Z68.41 [place] [address] [address] Jul, Bipolar 1 disorder, depressed F31.9 ; PTSD (post-traumatic stress disorder) F43.10 and Panic attacks F41.0 [address] [id number] Jul, Bipolar 1 disorder, depressed F31.9 [id number] [id number] Jul, Anxiety F41.9 ; COPD mixed type J44.9 ; Essential hypertension I10 ; Bipolar 1 disorder F31.9 ; High risk medication use Z79.899 ; BMI 40.0-44.9, adult Z68.41 and Coronary artery disease involving coronary bypass graft of flandreau heart without angina pectoris I25.[address] [place] [address] [id number] Jul, Chronic obstructive pulmonary disease with acute exacerbation J44.1 and Acute nasopharyngitis J[id number] [id number] Jul, Anxiety F41.9 ; Mixed hyperlipidemia E78.2 and Bipolar 1 disorder F31.9 [facility] [address] [id number] [place] [address] Jun Bipolar 1 disorder F31.9 [facility] [address] [id number] [place] [address] Jun [id number] [address] Jun, Anxiety F41.9 ; Elevated blood sugar R73.9 ; Mixed hyperlipidemia E78.2 ; COPD mixed type J44.9 ; Essential hypertension I10 ; Bipolar 1 disorder F31.9 ; Coronary artery disease involving coronary bypass graft of flandreau heart without angina pectoris I25.810 ; High risk medication use Z79.899 ; Controlled substance agreement signed Z79.899 ; Elevated fasting glucose R73.01 ; Encounter for immunization Z23 and BMI 40.0-44.9, adult Z68.41 [address] [place] [address] [id number] Jun, Elevated blood sugar R73.9 [facility] [address] [id number] [id number] Jun, [address] [place] [address] [id number] Jun, Bipolar 1 disorder F31.9 ; Obesity (BMI 30-39.9) E66.9 ; Coronary artery disease involving coronary bypass graft of flandreau heart without angina pectoris I25.810 and Essential hypertension I10 [address] [id number] [address] Jun, Coronary artery disease involving coronary bypass graft of flandreau heart without angina pectoris I25.810 ; Bipolar 1 disorder F31.9 ; Anxiety F41.9 ; Essential hypertension I10 ; COPD mixed type J44.9 and Mixed hyperlipidemia E78.2 [address] [id number] May, Severe single current episode of major depressive disorder, 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.2 ; Bipolar 1 disorder F31.9 ; Anxiety F41.9 ; PTSD (post -traumatic stress disorder) F43.10 ; Coronary artery disease involving coronary bypass graft of flandreau heart without angina pectoris I25.810 ; Sleep apnea in adult G47.30 ; Essential hypertension I10 ; High risk medication use Z79.899 ; Obesity (BMI 30-39.9) E66.9 ; Encounter for therapeutic drug level monitoring Z51.81 and COPD mixed type J44.9 [id number] [place] [address] [id number] May, Severe single current episode of major depressive disorder, 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.2 ; Bipolar 1 disorder F31.9 ; Anxiety F41.9 ; PTSD (post -traumatic stress disorder) F43.10 ; Mixed hyperlipidemia E78.2 ; Coronary artery disease involving coronary bypass graft of flandreau heart without angina pectoris I25.810 ; Sleep apnea in adult G47.30 ; Essential hypertension I10 ; High risk medication use Z79.899 ; Controlled substance agreement signed Z79.899 ; Obesity (BMI 30-39.9) E66.9 ; Tobacco abuse Z72.0 ; Tobacco abuse counseling Z71.6 and COPD mixed type J44.9 [facility] [address] [facility] [id number] [id number] May, [facility] [place] [facility] [address] [facility] [id number] [place] [address]- 0452 Dec, [facility] [place] [facility] [address] [facility] [id number] [place] [address]- 3736 Dec, [facility] [place] [facility] [id number] [place] [address], [place] [address]- 9464 May, [facility] [place] [facility] [address] [facility] [id number] [place] [address]- 9101 May, [facility] [address] [facility] [id number][place] [id number] Dec, [facility] [place] [facility] [address] [address]- 3189 Dec, [facility] [id number] [id number] Dec, [facility] [place] [facility] [address] [address]- 7756 Dec, [facility] [place] [facility] [address] [address]- 4184 Dec, [facility] [place] [facility] [address] [address]- 3367 Dec, [facility] [place] [facility] [address] [address] 2546 Nov, [facility] [address] [facility] [id number][place] [id number] Nov, [facility] [address] [facility] [id number], [place] [id number] Nov, [facility] [address] [facility] [id number], [place] [id number] Nov, [facility] [place] [facility] [address] [facility] [id number] [place] [address]- 2546 Nov, [facility] [place] [facility] [address] [id number] [address]- 0178 Nov, [facility] [address] [facility] [id number] [address]- 2158 Nov, [facility] [place] [facility] [address] [facility] [id number] [address]- 0802 Nov, [facility] [place] [facility] [address] [facility] [id number] [place] [address]- 8757 Nov, [facility] [place] [facility] [address] [facility] [id number] [address]- 7176 Nov, [facility] [address] [facility] [id number], [place] [id number] Nov, [facility] [address] [facility] [id number], [place] [id number] Oct, [facility] [place] [facility] [id number] [address]- 4485 Oct, [facility] [address] [facility] [id number], [place] 769242388 Oct, [facility] [place] [facility] [id number] [address]- 1310 Oct, [facility] [place] [facility] [id number] [address]- 3192 Oct, [facility] [address] [facility] [id number], [place] [id number] Sep, [facility] [place] [facility] [address] [facility] [id number] [place] [address]- 0692 Sep, [facility] [address] [facility] [id number], [place] [id number] Sep, [facility] [place] [facility] [address] [facility] [id number] [address]- 7406 Sep, [facility] [place] [facility] [address] [facility] [id number] [address]- 0646 Sep, [facility] [place] [facility] [address] [facility] [id number] [address] 2546 Sep, [facility] [address] [id number] [place] [address]- 1506 Aug, [facility] [address] [id number] [place] [id number] Aug, [facility] [place] [facility] [address] [facility] [id number] [place] [address]- 2546 Aug, [facility] [address] [facility] [id number] [place] [id number] Jul, [facility] [address] [id number] [place] [address]- 4784 Jul, [facility] [address] [facility] [id number] [place] [id number] Jul, [facility] [place] [facility] [id number] [address]- 1016 Jul, [facility] [place] [facility] [address] [address]- 6971 May, [facility] [place] [facility] [address] [facility] [id number] [address]- 7350 Apr, [facility] [place] [facility] [id number] [address]- 8886 Apr, [facility] [place] [facility] [id number] [address]- 6276 Mar, [facility] [address] [facility] [id number], [place] 333623615 Feb, [facility] [address] [facility] [id number], [place] [id number] Feb, [facility] [address] [facility] [id number] [place] [id number] Feb, [facility] [place] [facility] [address] [facility] [id number] [address]- 2546 Feb, [facility] [place] [facility] [address] [facility] [id number] [place] [address]- 3319 January, [facility] [place] [facility] [address] [facility] [id number] [address]- 2546 January, [facility] [address] [id number] [place] 197835738 Dec, [facility] [address] [id number] [place] [id number] Dec, [facility] [address] [id number] [place] [id number] Dec, [facility] [address] [id number] [place] [id number] Dec, [facility] [address] [id number] [place] 627718160 Dec, [facility] [address] [id number] [place] 150327490 Dec, [facility] [address] [facility] [id number] [address]- 2546 Dec, [facility] [address] [address]- 2546 Dec, [facility] [address] [id number] [place] [id number] Nov, [facility] [address] [id number] [place] [id number] Nov, [facility] [address] [id number] [place] 720073562 Nov, [facility] [address] [address]- 6206 Oct, [facility] [address] [address]- 2546 Oct, [facility] [address] [address]- 3931 Sep, [facility] [address] [address]- 4260 Aug, [facility] [address] [address]- 7142 Aug, [facility] [place] [facility] [address] [id number] [address]- 9346 Aug, [facility] [place] [facility] [address] [facility] [id number] [place] [address]- 4496 Aug, [facility] [address] [id number], [place] 336621994 Aug, [facility] [place] [facility] [address] [facility] [id number] [place] [address]- 8476 Aug, [facility] [place] [facility] [address] [facility] [id number] [place] [address]- 3116 Jul, [facility] [place] [facility] [address] [facility] [id number] [place] [address]- 8686 Jul, [facility] [place] [facility] [address] [facility] [id number] [address]- 9306 Jul, [facility] [place] [facility] [address] [id number] [address]- 8946 Jul, [facility] [address] [id number], [place] 086047892 Jun, [facility] [address] [id number], [place] 887836122 Jun, [facility] [place] [facility] [address] [facility] [id number] [address]- 4456 Jun, [facility] [address] [id number], [place] [id number] Apr, [facility] [place] [facility] [address] [facility] [id number] [place] [address]- 2546 Apr, [facility] [place] [facility] [address] [facility] [id number] [address]- 2546 Mar, [facility] [address] [id number], [place] [id number] Feb, [facility] [address] [id number], [place] [id number] Feb, [facility] [place] [facility] [address] [facility] [id number] [place] [address]- 6556 Feb, [facility] [address] [id number] [place] 060952541 Feb, [facility] [place] [facility] [address] [facility] [id number] [place] [address]- 5376 Feb, [facility] [place] [facility] [address] [facility] [id number] [address]- 8806 Feb, [facility] [place] [facility] [address] [facility] [id number] [address]86- 3386 Feb, [facility] [place] [facility] [address] [facility] [id number] [address]- 7105 Feb, [facility] [address] [id number] [place] [id number] January, [facility] [address] [id number] [place] [id number] Dec, [facility] [place] [facility] [id number] [place] [address]452 2546 Dec, [facility] [address] [facility] [id number] [place] [address]- 8116 Dec, [facility] [address] [id number] [place] [id number] Dec, [facility] [address] [facility] [id number] [place] [address]- 2546 Dec, [facility] [address] [id number] [place] [id number] Dec, [facility] [address] [id number] [place] [id number] Nov, [facility] [address] [id number] [place] [id number] Nov, [facility] [address] [id number] [place] [id number] Nov, [facility] [address] [id number] [place] [id number] Nov, [facility] [place] [facility] [address] [address]- 4962 Oct, [facility] [address] [id number] [place] [id number] Oct, [facility] [address] [id number] [place] [id number] Oct, [facility] [address] [id number] [place] [id number] Oct, [facility] [address] [id number] [place] [id number] Oct, [facility] [address] [id number] [place] [id number] Sep, [facility] [address] [id number] [place] [id number] Sep, [facility] [id number] [address] Sep, [facility] [id number] [place] [address] Sep, [facility] [place] [facility] [id number] [address] Sep, [facility] [id number] [place] [address] Sep, [facility] [place] [facility] [id number] [address] Aug, [facility] [place] [facility] [id number] [address] Aug, [facility] [place] [facility] [id number] [address] Aug, [facility] [place] [facility] [id number] [place] [address] Aug, [facility] [place] [facility] [id number] [place] Aug, [facility] [place] [facility] [id number] [address] Aug, [facility] [place] [facility] [address] [id number] [place] [address] 07 Aug, 2011 [facility] [place] [facility] [address] [id number] [place] [address] 07 Aug, 2011 [facility] [place] [facility] [address] [id number] [place] [address] 27 Jun, 2011 [facility] [place] [facility] [address] [id number] [place] [address] 27 Jun, 2011 [facility] [place] [facility] [address] [id number] [place] [address] 19 Jun, 2011 [facility] [place] [facility] [address] [id number] [place] [address] 19 Jun, 2011 [facility] [place] [facility] [address] [id number] [place] [address] 14 Jun, 2011 [facility] [place] [facility] [address] [id number] [place] [address] 13 Jun, 2011 [facility] [place] [facility] [address] [id number] [place] [address] Jun, [facility] [place] [facility] [address] [id number] [place] [address] 12 Jun, 2011 [facility] [place] [facility] [address] [id number] [place] [address] 12 Jun, 2011 [facility] [place] [facility] [address] [id number] [place] [address] 14 May, 2011 [facility] [place] [facility] [address] [id number] [place] [address] 10 Apr, 2011 [facility] [place] [facility] [address] [id number] [place] [address] 16 Feb, 2011 [facility] [place] [facility] [address] [id number] [place] [address] 20 Dec, 2010 [facility] [place] [facility] [address] [id number] [place] [id number] Aug, [facility] [address] [facility] [id number] [address] Aug, [facility] [id number] [place] [address] Aug, [facility] [id number] [address] Aug, [facility] [id number] [place] [address] Jul, [facility] [id number] [address] Jun, [facility] [id number] [place] [address] Jun, IMMUNIZATIONS No Known Immunizations SOCIAL HISTORY Never Assessed REASON FOR VISIT med refill PLAN OF CARE VITAL SIGNS MEDICATIONS Medication Instructions Dosage Frequency Start Date End Date Duration Status Nicotine Step 2 14 MG/24HR Transdermal Once a day 1 patch to skin 24h Apr, 30 day(s) Active RESULTS No Results PROCEDURES No Known [...] Coronary atherosclerosis of unspecified type of vessel, [place] or graft Medical History Coronary atherosclerosis of unspecified type of vessel, [place] or graft Surgical History section x4 Surgical History CABG x3 Surgical History Left arm-Plate and screws placed Hospitalization History Surgery(s)/Childbirth(s) only
--- OUTSIDE RECORDS SUMMARY | 2019-02-02 13:53 | XMS REPORT ---
Author Author MAL SHARMA Organization [facility] [place] Address [address] [place] [address] Care Team Providers Care Speaker Wirer Name Role Phone MAL SHARMA Unavailable PROBLEMS Type Condition ICD9-CM Code TVM50-RS Code Onset Dates Condition Status SNOMED Code Problem Chronic obstructive pulmonary disease with acute exacerbation J44.1 Active 379137616 Problem MESERET (generalized anxiety disorder) F41.1 Active 41869114 Problem Panic disorder F41.0 Active 193469888 Problem Morbid (severe) obesity due to excess calories E66.01 Active 36429875148511 Problem Body mass index (BMI) of 45.0-49.9 in adult Z68.42 Active 844097237 Problem Coronary artery disease involving [place] coronary artery of [place] heart without angina pectoris I25.10 Active 2480983605263 Problem Mood disorder F39 Active 75333814 Problem Bipolar disorder, in partial remission, most recent episode depressed F31.75 Active 19209978 Problem Claudication I73.9 Active 791081110 Problem Mixed hyperlipidemia E78.2 Active 336860054 Problem PTSD (post-traumatic stress disorder) F43.10 Active 92015494 Problem Sleep apnea in adult G47.30 Active 25892390 Problem COPD mixed type J44.9 Active 42127321 Problem Obesity (BMI 30-39.9) E66.9 Active 705199500 Problem Coronary artery disease involving coronary bypass graft of [place] heart without angina pectoris I25.810 Active 496690642 Problem Bipolar 1 disorder F31.9 Active 946259372 Problem Essential hypertension I10 Active 41725532 ALLERGIES No Information ENCOUNTERS Encounter Location Date Diagnosis [facility] [place] [address] [id number] [address] May, [facility] [place] [address] [id number] [address] May, [facility] [place] [address] [address] Apr, Bipolar disorder, in partial remission, most recent episode depressed F31.75 ; MESERET (generalized anxiety disorder) F41.1 ; Panic disorder F41.0 and BMI 45.0-49.9, adult Z68.42 [facility] [id number] [place] [id number] Apr, [place] [id number] [place] [address] 64936- 4763 Apr, Bipolar 1 disorder, depressed F31.9 [place] [id number] [place] [address] 73719- 0167 Mar, Bipolar disorder, in partial remission, most recent episode depressed F31.75 ; MESERET (generalized anxiety disorder) F41.1 ; Panic disorder F41.0 and BMI 45.0-49.9, adult Z68.42 [facility] [id number] [place] [address] [phone] Mar, High risk medication use Z79.899 and Mixed hyperlipidemia E78.2 [facility] [address] [place] [address] [id number] Mar, COPD mixed type J44.9 ; Essential hypertension I10 ; Sleep apnea in adult G47.30 ; Mixed hyperlipidemia E78.2 ; Morbid (severe) obesity due to excess calories E66.01 ; Body mass index (BMI) of 45.0-49.9 in adult Z68.42 ; Tobacco abuse Z72.0 ; Tobacco abuse counseling Z71.6 and BMI 45.0-49.9, adult Z68.42 [place] [id number] [place] [address] 37349- 0915 Feb, Bipolar disorder, in partial remission, most recent episode depressed F31.75 ; MESERET (generalized anxiety disorder) F41.1 ; Panic disorder F41.0 and BMI 45.0-49.9, adult Z68.42 [place] [id number] [place] [address] 82545- 0935 Feb, Bipolar 1 disorder, depressed F31.9 ; PTSD (post-traumatic stress disorder) F43.10 and Panic attacks F41.0 [place] [id number] [place] [address] 44562- 0093 Feb, High risk medication use Z79.899 [place] [address] [place] [address] 35861- 4936 January, High risk medication use Z79.899 ; Bipolar disorder, in partial remission, most recent episode depressed F31.75 ; MESERET (generalized anxiety disorder) F41.1 ; Panic disorder F41.0 and BMI 45.0-49.9, adult Z68.42 [place] [id number] [place] [address] 39023- 5489 January, Bipolar 1 disorder, depressed F31.9 ; PTSD (post-traumatic stress disorder) F43.10 and Panic attacks F41.0 [place] [id number] [place] [address] 36174- 9839 January, Bipolar 1 disorder, depressed F31.9 ; PTSD (post-traumatic stress disorder) F43.10 and Panic attacks F41.0 [place] [id number] [place] [address] 83797- 7045 Dec, BMI 45.0-49.9, adult Z68.42 ; Bipolar disorder, in partial remission, most recent episode depressed F31.75 ; MESERET (generalized anxiety disorder) F41.1 and Panic disorder F41.0 [place] [address] [place] [address] 02340- 0878 Dec, Bipolar 1 disorder, depressed F31.9 ; PTSD (post-traumatic stress disorder) F43.10 and Panic attacks F41.0 [place] [id number] [place] [address] 23565- 0134 Nov, Bipolar disorder, in partial remission, most recent episode depressed F31.75 ; MESERET (generalized anxiety disorder) F41.1 and Panic disorder F41.0 [place] [address] [id number] [address] 8[address] Nov, [place] [id number] [place] [address] 48494- 3206 Nov, [place] [id number] [place] [address] 21661- 7714 27 Oct, 2017 BMI 45.0-49.9, adult Z68.42 ; Bipolar disorder, in partial remission, most recent episode depressed F31.75 ; MESERET (generalized anxiety disorder) F41.1 and Panic disorder F41.[address] [id number] [id number] 23 Oct, 2017 BMI 45.0-49.9, adult Z68.42 ; Coronary artery disease involving [place] coronary artery of [place] heart without angina pectoris I25.10 ; Hx of CABG Z95.1 ; Dyspnea on exertion R06.09 ; Essential hypertension I10 ; Mixed hyperlipidemia E78.2 ; Claudication I73.9 and Tobacco use Z72.0 [facility] [id number] [place] [address] [id number] 15 Oct, 2017 BMI 45.0-49.9, adult Z68.42 ; Bipolar 1 disorder, depressed F31.9 and Abscess L02.91 [place] [id number] [place] [address] 97105- 8326 14 Oct, 2017 Bipolar 1 disorder, depressed F31.9 ; PTSD (post-traumatic stress disorder) F43.10 and Panic attacks F41.0 [place] [address] [place] [address] 86513- 7418 Sep, BMI 40.0-44.9, adult Z68.41 ; Mood disorder F39 ; MESERET ( generalized anxiety disorder) F41.1 and Panic disorder F41.0 [place] [address] [place] [address] 52897- 2784 Sep, BMI 40.0-44.9, adult Z68.41 [place] [id number] [place] [address] 76627- 1121 Sep, Bipolar 1 disorder, depressed F31.9 ; PTSD (post-traumatic stress disorder) F43.10 and Panic attacks F41.0 [place] [address] [address] Aug, BMI 40.0-44.9, adult Z68.41 ; Mood disorder F39 ; MESERET ( generalized anxiety disorder) F41.1 and Panic disorder F41.0 [place] [address] [address] Aug, Bipolar 1 disorder, depressed F31.9 ; PTSD (post-traumatic stress disorder) F43.10 and Panic attacks F41.[address] [id number] Aug, [address] [id number] Aug, COPD mixed type J44.9 [place] [address] [address]- 3662 Aug, [place] [address] [address] Jul, PTSD (post-traumatic stress disorder) F43.10 ; Panic disorder F41.0 ; MESERET (generalized anxiety disorder) F41.1 ; Mood disorder F39 and BMI 40.0-44.9, adult Z68.41 [place] [id number] [place] [address] 75577- 9786 Jul, Bipolar 1 disorder, depressed F31.9 ; PTSD (post-traumatic stress disorder) F43.10 and Panic attacks F41.0 [place] [id number] [place] [address] [id number] Jul, Bipolar 1 disorder, depressed F31.[address] [id number] Jul, Anxiety F41.9 ; COPD mixed type J44.9 ; Essential hypertension I10 ; Bipolar 1 disorder F31.9 ; High risk medication use Z79.899 ; BMI 40.0-44.9, adult Z68.41 and Coronary artery disease involving coronary bypass graft of [place] heart without angina pectoris I25.810 [facility] [id number] [place] [address] [id number] Jul, Chronic obstructive pulmonary disease with acute exacerbation J44.1 and Acute nasopharyngitis J00 [facility] [address] [id number] [id number] Jul, Anxiety F41.9 ; Mixed hyperlipidemia E78.2 and Bipolar 1 disorder F31.9 [facility] [address] [id number] [place] [address] Jun Bipolar 1 disorder F31.9 [facility] [address] [id number] [place] [address] Jun [place] [address] [id number][place] [id number] Jun, Anxiety F41.9 ; Elevated blood sugar R73.9 ; Mixed hyperlipidemia E78.2 ; COPD mixed type J44.9 ; Essential hypertension I10 ; Bipolar 1 disorder F31.9 ; Coronary artery disease involving coronary bypass graft of [place] heart without angina pectoris I25.810 ; High risk medication use Z79.899 ; Controlled substance agreement signed Z79.899 ; Elevated fasting glucose R73.01 ; Encounter for immunization Z23 and BMI 40.0-44.9, adult Z68.41 [facility] [address] [facility] [id number][place] [id number] Jun, Elevated blood sugar R73.9 [place] [id number][place] [id number] Jun, [id number] [id number] Jun, Bipolar 1 disorder F31.9 ; Obesity (BMI 30-39.9) E66.9 ; Coronary artery disease involving coronary bypass graft of [place] heart without angina pectoris I25.810 and Essential hypertension I10 [facility] [address] [id number][place] [id number] Jun, Coronary artery disease involving coronary bypass graft of [place] heart without angina pectoris I25.810 ; Bipolar 1 disorder F31.9 ; Anxiety F41.9 ; Essential hypertension I10 ; COPD mixed type J44.9 and Mixed hyperlipidemia E78.[address] [place] [address] [id number] May, Severe single current episode of major depressive disorder, 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.2 ; Bipolar 1 disorder F31.9 ; Anxiety F41.9 ; PTSD (post -traumatic stress disorder) F43.10 ; Coronary artery disease involving coronary bypass graft of [place] heart without angina pectoris I25.810 ; Sleep apnea in adult G47.30 ; Essential hypertension I10 ; High risk medication use Z79.899 ; Obesity (BMI 30-39.9) E66.9 ; Encounter for therapeutic drug level monitoring Z51.81 and COPD mixed type J44.9 [address] [place] [address] [id number] May, Severe single current episode of major depressive disorder, 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.2 ; Bipolar 1 disorder F31.9 ; Anxiety F41.9 ; PTSD (post -traumatic stress disorder) F43.10 ; Mixed hyperlipidemia E78.2 ; Coronary artery disease involving coronary bypass graft of [place] heart without angina pectoris I25.810 ; Sleep apnea in adult G47.30 ; Essential hypertension I10 ; High risk medication use Z79.899 ; Controlled substance agreement signed Z79.899 ; Obesity (BMI 30-39.9) E66.9 ; Tobacco abuse Z72.0 ; Tobacco abuse counseling Z71.6 and COPD mixed type J44.9 [address] [id number] [id number] May, [facility] [place] [id number] [place] [address] 03874- 1858 Dec, [facility] [place] [id number] [place] [address] 41472- 8290 Dec, [facility] [place] [id number] [place] [address] 42120- 9769 May, [facility] [place] [id number] [place] [address] 74861- 2546 May, [facility] [address] [id number] [place] [address] Dec, [facility] [address] [id number] [place] [address] Dec, [facility] [address] [facility] [id number] [place] [id number] Dec, [facility] [place] [facility] [address] [id number] [place] [address]- 1366 Dec, [facility] [place] [facility] [address] [id number] [place] [address]- 7184 Dec, [facility] [place] [facility] [address] [id number] [place] [address]- 6942 Dec, [facility] [address] [facility] [id number] [place] [address]- 8049 Nov, [facility] [address] [id number] [place] [id number] Nov, [facility] [address] [id number] [place] [id number] Nov, [facility] [address] [id number] [place] [id number] Nov, [facility] [place] [facility] [address] [id number] [place] [address]- 6094 Nov, [facility] [place] [facility] [address] [facility] [id number] [place] [address]- 1812 Nov, [facility] [place] [facility] [address] [id number] [place] [address]- 8535 17 Nov, 2013 [facility] [place] [facility] [address] [id number] [place] [address]- 1620 15 Nov, 2013 [facility] [place] [facility] [address] [facility] [id number] [place] [address]- 4249 14 Nov, 2013 [facility] [place] [facility] [address] [id number] [place] [address]- 5488 12 Nov, 2013 [facility] [address] [facility] [id number][place] [address] Nov, [facility] [address] [facility] [id number][place] [id number] Oct, [facility] [place] [facility] [address] [facility] [id number] [address]- 2546 Oct, [facility] [address] [facility] [id number], [place] [id number] Oct, [facility] [place] [facility] [address] [facility] [id number] [address]- 2546 Oct, [facility] [place] [facility] [address] [facility] [id number] [address]- 2546 Oct, [facility] [address] [id number], [place] [id number] Sep, [facility] [place] [facility] [address] [address]- 0356 Sep, [facility] [address] [id number], [place] [address] Sep, [facility] [place] [facility] [address] [address]- 1966 Sep, [facility] [place] [facility] [address] [address]- 1916 Sep, [facility] [place] [facility] [id number] [address]- 4296 Sep, [facility] [place] [facility] [address] [facility] [id number] [address]- 2546 Aug, [facility] [address] [facility] [id number], [place] 00[address]342325 Aug, [facility] [place] [facility] [address] [facility] [id number] [address]- 2546 Aug, [facility] [address] [facility] [id number], [place] [address] Jul, [facility] [place] [facility] [address] [id number] [address]- 5686 Jul, [facility] [address] [id number][place] [address] Jul, [facility] [address] [facility] [id number] [address]- 1547 Jul, [facility] [address] [id number] [address]- 3540 May, [facility] [address] [facility] [id number] [place] [address]- 5173 Apr, [facility] [address] [facility] [id number] [address]- 0279 Apr, [facility] [address] [id number] [address]- 9282 Mar, [facility] [address] [id number], [place] [address] Feb, [facility] [address] [id number], [place] [address]56[address] Feb, [facility] [address] [id number], [place] 100[address] Feb, [facility] [address] [address]- 4377 Feb, [facility] [id number] [address]- 7137 January, [facility] [address] [address]- 2546 January, [facility] [address] [id number], [place] 160[address] Dec, [facility] [address] [id number] [place] [address] Dec, [facility] [address] [id number] [place] [address] Dec, [facility] [address] [id number], [place] 559[address]9112 Dec, [facility] [address] [id number], [place] 9[address]26384 Dec, [facility] [address] [id number] [place] [address] Dec, [facility] [place] [facility] [address] [id number] [place] [address]- 2546 Dec, [facility] [place] [facility] [address] [id number] [place] [address]- 2546 Dec, [facility] [address] [id number] [place] [id number] Nov, [facility] [address] [id number] [place] [id number] Nov, [facility] [address] [id number] [place] [id number] Nov, [facility] [place] [facility] [address] [facility] [id number] [place] [address]- 2546 Oct, [facility] [place] [facility] [address] [id number] [address]- 2546 Oct, [facility] [place] [facility] [address] [facility] [id number] [address]- 4166 Sep, [facility] [place] [facility] [address] [id number] [address]- 4376 Aug, [facility] [place] [facility] [address] [facility] [id number] [address]- 0326 Aug, [facility] [place] [facility] [address] [id number] [address]- 2546 Aug, [facility] [place] [facility] [address] [facility] [id number] [place] [address]- 7836 Aug, [facility] [address] [facility] [id number] [place] [id number] Aug, [facility] [place] [facility] [address] [facility] [id number] [place] [address]- 2546 Aug, [facility] [place] [facility] [address] [facility] [id number] [place] [address]- 2546 Jul, [facility] [place] [facility] [address] [facility] [id number] [place] [address]- 5481 Jul, [facility] [place] [facility] [address] [facility] [id number] [address]- 8120 Jul, [facility] [place] [facility] [address] [facility] [id number] [place] [address]- 4213 Jul, [facility] [address] [facility] [id number] [place] [id number] Jun, [facility] [address] [facility] [id number] [place] [id number] Jun, [facility] [place] [facility] [address] [facility] [id number] [address]- 1135 Jun, [facility] [address] [id number], [place] 730455884 Apr, [facility] [place] [facility] [address]00565100[place] [address]- 6647 Apr, [facility] [place] [facility] [address] [facility] [id number] [place] [address]- 5795 Mar, [facility] [address] [facility] [id number], [place] [address] Feb, [facility] [address] [id number], [place] [id number] Feb, [facility] [place] [facility] [address]00565100[place] [address]- 8595 Feb, [facility] [address] [facility] [id number], [place] [address] Feb, [facility] [place] [facility] [address] [facility] [id number] [place] [address]- 7361 Feb, [facility] [place] [facility] [address] [facility] [id number] [place] [address]- 9916 Feb, [facility] [place] [facility] [address] [facility] [id number] [place] [address]- 9246 Feb, [facility] [place] [facility] [address] [facility] [id number] [place] [address]- 2546 Feb, [facility] [address] [id number] [place] [id number] January, [facility] [address] [id number] [place] [id number] Dec, [facility] [address] [facility] [id number] [place] [address]- 2543 Dec, [facility] [address] [facility] [id number] [place] [address]- 2546 Dec, [facility] [address] [id number] [place] [id number] Dec, [facility] [address] [facility] [id number] [address] Dec, [facility] [address] [id number] [place] [id number] Dec, [facility] [address] [id number] [place] [id number] Nov, [facility] [address] [id number] [place] [id number] Nov, [facility] [address] [id number] [place] [id number] Nov, [facility] [address] [id number] [place] [id number] Nov, [facility] [address] [id number] [address] Oct, [facility] [address] [id number] [place] [id number] Oct, [facility] [address] [id number] [place] [id number] Oct, [facility] [address] [id number] [place] [id number] Oct, [facility] [address] [id number] [place] [id number] Oct, [facility] [address] [id number] [place] [id number] Sep, [facility] [address] [id number] [place] [id number] Sep, [facility] [address] [id number] [place] [address] Sep, [facility] [address] [id number] [place] [address] Sep, [facility] [address] [id number] [place] [address] Sep, [facility] [address] [id number] [place] [address] Sep, [facility] [address] [id number] [place] [address] Aug, [facility] [address] [id number] [place] [address] Aug, [facility] [address] [id number] [place] [address] Aug, [facility] [address] [id number] [place] [address] Aug, [facility] [address] [id number] [place] [address] Aug, [facility] [address] [id number] [place] [address] Aug, [facility] [address] [id number] [place] [address] Aug, [facility] [address] [id number] [place] [address] Aug, [facility] [place] [facility] [address] [id number] [place] [address] Jun, [facility] [place] [facility] [address] [id number] [place] [address] Jun, [facility] [address] [id number] [place] [address] Jun, [facility] [place] [facility] [address] [id number] [place] [address] 19 Jun, 2011 [facility] [place] [facility] [address] [id number] [place] [address] 14 Jun, 2011 [facility] [place] [facility] [address] [id number] [place] [address] 13 Jun, 2011 [facility] [place] [facility] [address] [id number] [place] [address] 12 Jun, 2011 [facility] [place] [facility] [address] [id number] [place] [address] 12 Jun, 2011 [facility] [place] [facility] [address] [id number] [place] [address] 12 Jun, 2011 [facility] [place] [facility] [address] [id number] [place] [address] 14 May, 2011 [facility] [place] [facility] [address] [id number] [place] [address] 10 Apr, 2011 [facility] [place] [facility] [address] [id number] [place] [address] 16 Feb, 2011 [facility] [place] [facility] [address] [id number] [place] [address] 20 Dec, 2010 [facility] [place] [facility] [address] [id number] [place] [address] 28 Aug, 2010 [facility] [place] [facility] [address] [id number] [place] [address] 28 Aug, 2010 [facility] [place] [facility] [address] [id number] [place] [address] 15 Aug, 2010 [facility] [place] [facility] [address] [id number] [place] [address] Aug, [facility] [place] [facility] [address] [id number] [place] [address] 05 Jul, 2010 [facility] [place] [facility] [address] [facility] [id number] [place] [address] Jun, [facility] [place] [address] [facility] [id number] [place] [address] Jun, IMMUNIZATIONS No Known Immunizations SOCIAL HISTORY Never Assessed REASON FOR VISIT f/u PLAN OF CARE Activity Details Follow Up Next available Reason: VITAL SIGNS MEDICATIONS Unknown Medications RESULTS No Results PROCEDURES Procedure Date Ordered Result Body Site Psychotherapy, patient &/family, 45 minutes, established patient Apr 22, 2018 INSTRUCTIONS MEDICATIONS ADMINISTERED No Known Medications MEDICAL [...] Coronary atherosclerosis of unspecified type of vessel, [place] or graft Medical History Coronary atherosclerosis of unspecified type of vessel, [place] or graft Surgical History section x4 Surgical History CABG x3 Surgical History Left arm-Plate and screws placed Hospitalization History Surgery(s)/Childbirth(s) only
--- OUTSIDE RECORDS SUMMARY | 2019-02-02 13:53 | XMS REPORT ---
Author Author DEANA KEVON [facility] Address [address] [place] [address] Care Team Providers Care Time Checker Name Role Phone ANNIMARILYN KEVON Unavailable PROBLEMS Type Condition ICD9-CM Code YOF34-CV Code Onset Dates Condition Status SNOMED Code Problem Chronic obstructive pulmonary disease with acute exacerbation J44.1 Active 760786508 Problem MESERET (generalized anxiety disorder) F41.1 Active 56304253 Problem Panic disorder F41.0 Active 712167268 Problem Morbid (severe) obesity due to excess calories E66.01 Active 54571005069120 Problem Body mass index (BMI) of 45.0-49.9 in adult Z68.42 Active 598363806 Problem Coronary artery disease involving flandreau coronary artery of flandreau heart without angina pectoris I25.10 Active 4267874375758 Problem Mood disorder F39 Active 56210333 Problem Bipolar disorder, in partial remission, most recent episode depressed F31.75 Active 82519687 Problem Claudication I73.9 Active 614114478 Problem Mixed hyperlipidemia E78.2 Active 880353020 Problem PTSD (post-traumatic stress disorder) F43.10 Active 77018144 Problem Sleep apnea in adult G47.30 Active 49599838 Problem COPD mixed type J44.9 Active 31209780 Problem Obesity (BMI 30-39.9) E66.9 Active 093298919 Problem Coronary artery disease involving coronary bypass graft of flandreau heart without angina pectoris I25.810 Active 317425262 Problem Bipolar 1 disorder F31.9 Active 270053631 Problem Essential hypertension I10 Active 81719558 ALLERGIES No Information ENCOUNTERS Encounter Location Date Diagnosis [facility] [id number] [address] Jul, [facility] [address] [facility] [id number], [place] [address] Jun, [facility] [id number] May, [place] [id number] [place] [address]- 2691 May, Bipolar 1 disorder, depressed F31.9 ; PTSD (post-traumatic stress disorder) F43.10 and Panic attacks F41.0 [place] [id number] [place] [address] 88041- 8684 May, Bipolar disorder, in partial remission, most recent episode depressed F31.75 ; MESERET (generalized anxiety disorder) F41.1 ; Panic disorder F41.0 and BMI 45.0-49.9, adult Z68.42 [place] [id number] [place] [address]49- 9705 Apr, Bipolar disorder, in partial remission, most recent episode depressed F31.75 ; MESERET (generalized anxiety disorder) F41.1 ; Panic disorder F41.0 and BMI 45.0-49.9, adult Z68.[id number] [place] [id number] Apr, [place] [id number] [place] [address] 42792- 2098 Apr, Bipolar 1 disorder, depressed F31.9 [place] [address] [place] [address] 44025- 9523 Mar, Bipolar disorder, in partial remission, most recent episode depressed F31.75 ; MESERET (generalized anxiety disorder) F41.1 ; Panic disorder F41.0 and BMI 45.0-49.9, adult Z68.42 [address] [place] [address] [id number] Mar, High risk medication use Z79.899 and Mixed hyperlipidemia E78.[address] [place] [address] [id number] Mar, COPD mixed type J44.9 ; Essential hypertension I10 ; Sleep apnea in adult G47.30 ; Mixed hyperlipidemia E78.2 ; Morbid (severe) obesity due to excess calories E66.01 ; Body mass index (BMI) of 45.0-49.9 in adult Z68.42 ; Tobacco abuse Z72.0 ; Tobacco abuse counseling Z71.6 and BMI 45.0-49.9, adult Z68.42 [facility] [address] [address] Feb, Bipolar disorder, in partial remission, most recent episode depressed F31.75 ; MESERET (generalized anxiety disorder) F41.1 ; Panic disorder F41.0 and BMI 45.0-49.9, adult Z68.42 [facility] [address]100[place] [address] Feb, Bipolar 1 disorder, depressed F31.9 ; PTSD (post-traumatic stress disorder) F43.10 and Panic attacks F41.0 [place] [address] [address] Feb, High risk medication use Z79.899 [place] [id number] [place] [address] 31074- 0849 January, High risk medication use Z79.899 ; Bipolar disorder, in partial remission, most recent episode depressed F31.75 ; MESERET (generalized anxiety disorder) F41.1 ; Panic disorder F41.0 and BMI 45.0-49.9, adult Z68.42 [facility] [address], [place] [address] January, Bipolar 1 disorder, depressed F31.9 ; PTSD (post-traumatic stress disorder) F43.10 and Panic attacks F41.0 [place], [place] [address] January, Bipolar 1 disorder, depressed F31.9 ; PTSD (post-traumatic stress disorder) F43.10 and Panic attacks F41.0 [place] [address], [place] [address] Dec, BMI 45.0-49.9, adult Z68.42 ; Bipolar disorder, in partial remission, most recent episode depressed F31.75 ; MESERET (generalized anxiety disorder) F41.1 and Panic disorder F41.0 [place] [address], [place] [address] Dec, Bipolar 1 disorder, depressed F31.9 ; PTSD (post-traumatic stress disorder) F43.10 and Panic attacks F41.0 [place] [address], [place] [address] Nov, Bipolar disorder, in partial remission, most recent episode depressed F31.75 ; MESERET (generalized anxiety disorder) F41.1 and Panic disorder F41.0 [place] [address] [place] [address] 60659- 3263 Nov, [facility] [address] [place] [address] 70812- 8083 Nov, [place] [address] [place] [address] 91279- 6078 Oct, BMI 45.0-49.9, adult Z68.42 ; Bipolar disorder, in partial remission, most recent episode depressed F31.75 ; MESERET (generalized anxiety disorder) F41.1 and Panic disorder F41.[address] [id number] [id number] 23 Oct, 2017 BMI 45.0-49.9, adult Z68.42 ; Coronary artery disease involving flandreau coronary artery of flandreau heart without angina pectoris I25.10 ; Hx of CABG Z95.1 ; Dyspnea on exertion R06.09 ; Essential hypertension I10 ; Mixed hyperlipidemia E78.2 ; Claudication I73.9 and Tobacco use Z72.0 [facility] [address] [facility] [id number] [address] 15 Oct, 2017 BMI 45.0-49.9, adult Z68.42 ; Bipolar 1 disorder, depressed F31.9 and Abscess L02.91 [facility] [id number] [address] 14 Oct, 2017 Bipolar 1 disorder, depressed F31.9 ; PTSD (post-traumatic stress disorder) F43.10 and Panic attacks F41.0 [place] [id number] [place] [address] 74759- 6884 Sep, BMI 40.0-44.9, adult Z68.41 ; Mood disorder F39 ; MESERET ( generalized anxiety disorder) F41.1 and Panic disorder F41.0 [place] [id number] [place] [address] 06401- 6315 Sep, BMI 40.0-44.9, adult Z68.41 [place] [id number] [place] [address] 95351- 7683 Sep, Bipolar 1 disorder, depressed F31.9 ; PTSD (post-traumatic stress disorder) F43.10 and Panic attacks F41.0 [place] [id number] [place] [address] 77419- 7424 Aug, BMI 40.0-44.9, adult Z68.41 ; Mood disorder F39 ; MESERET ( generalized anxiety disorder) F41.1 and Panic disorder F41.0 [place] [id number] [place] [address] 14947- 3668 Aug, Bipolar 1 disorder, depressed F31.9 ; PTSD (post-traumatic stress disorder) F43.10 and Panic attacks F41.0 [address] [place] [id number] Aug, [address] [id number] [place] [address] [id number] Aug, COPD mixed type J44.9 [place] [id number] [place] [address] 80854- 2440 Aug, [place] [address] [address]- [address] Jul, PTSD (post-traumatic stress disorder) F43.10 ; Panic disorder F41.0 ; MESERET (generalized anxiety disorder) F41.1 ; Mood disorder F39 and BMI 40.0-44.9, adult Z68.41 [facility] [address] [facility] [id number][place] [address] [address]33 Jul, Bipolar 1 disorder, depressed F31.9 ; PTSD (post-traumatic stress disorder) F43.10 and Panic attacks F41.0 [address] [id number] [address] Jul, Bipolar 1 disorder, depressed F31.9 [address] [address] Jul, Anxiety F41.9 ; COPD mixed type J44.9 ; Essential hypertension I10 ; Bipolar 1 disorder F31.9 ; High risk medication use Z79.899 ; BMI 40.0-44.9, adult Z68.41 and Coronary artery disease involving coronary bypass graft of flandreau heart without angina pectoris I25.810 [id number] [id number] Jul, Chronic obstructive pulmonary disease with acute exacerbation J44.1 and Acute nasopharyngitis J00 [address] [id number] [id number] Jul, Anxiety F41.9 ; Mixed hyperlipidemia E78.2 and Bipolar 1 disorder F31.9 [facility] [address] [id number] [place] [address] Jun Bipolar 1 disorder F31.9 [facility] [address] [id number] [place] [address] [id number] [address] Jun, Anxiety F41.9 ; Elevated blood sugar [...] immunization Z23 and BMI 40.0-44.9, adult Z68.41 [address] [address] Jun, Elevated blood sugar R73.9 [place] [id number] [address] Jun, [place] [id number], [place] [id number] Jun, Bipolar 1 disorder F31.9 ; Obesity (BMI 30-39.9) E66.9 ; Coronary artery disease involving coronary bypass graft of flandreau heart without angina pectoris I25.810 and Essential hypertension I10 [id number] [address] Jun, Coronary artery disease involving coronary bypass graft of flandreau heart without angina pectoris I25.810 ; Bipolar 1 disorder F31.9 ; Anxiety F41.9 ; Essential hypertension I10 ; COPD mixed type J44.9 and Mixed hyperlipidemia E78.2 [address] [id number] May, Severe single current episode of major [...] monitoring Z51.81 and COPD mixed type J44.9 [place] [id number] [address] May, Severe single current episode of major [...] Z71.6 and COPD mixed type J44.9 [facility] [id number] [id number] May, [facility] [address], [place] [address]- [address] Dec, [facility] [address], [place] [address]- 4655 Dec, [facility] [id number] [place] [address] 58757- 5967 May, [facility] [address] [place] [address] 61498- 3775 May, [facility] [id number] [place] [address] [id number] Dec, [facility] [address], [place] [address]- 1225 Dec, [facility] [id number], [place] [id number] Dec, [facility] [address], [place] [address]- 3485 Dec, [facility] [address] 7[address] Dec, [facility] [address], [place] [address]- 1254 Dec, [facility] [address], [place] [address]- 1383 Nov, [facility] [address] [facility] [id number] [id number] Nov, [facility] [address] [id number] [id number] Nov, [facility] [address] [facility] [id number], [place] [id number] Nov, [facility] [address], [place] [address] 2546 Nov, [facility] [place] [facility] [address] [id number] [place] [address]- 8016 Nov, [facility] [place] [facility] [address] [facility] [id number] [place] [address]- 2546 Nov, [facility] [place] [facility] [address] [facility] [id number] [place] [address]- 2546 Nov, [facility] [place] [facility] [address] [facility] [id number] [place] [address]- 2546 Nov, [facility] [place] [facility] [address] [facility] [id number] [place] [address]- 6546 Nov, [facility] [address] [facility] [id number] [place] [id number] Nov, [facility] [address] [facility] [id number] [place] [id number] Oct, [facility] [place] [facility] [id number] [place] [address]- 2546 Oct, [facility] [address] [facility] [id number][place] [id number] Oct, [facility] [place] [facility] [address] [facility] [id number] [place] [address]- 2546 Oct, [facility] [place] [facility] [address] [facility] [id number] [address]- 2546 Oct, [facility] [address] [facility] [id number][place] [address] Sep, [facility] [place] [facility] [address] [facility] [id number], [place] [address]- 2546 Sep, [facility] [address] [facility] [id number], [place] [address] Sep, [facility] [place] [facility] [address] [facility] [id number] [place] [address]- 2546 Sep, [facility] [place] [facility] [address] [facility] [id number] [place] [address]- 2546 Sep, [facility] [place] [facility] [address] [id number], [place] [address]- 6255 Sep, [facility] [address] [facility] [id number], [place] [address]- 8599 Aug, [facility] [address] [facility] [id number] [place] [id number] Aug, [facility] [address] [facility] [id number], [place] [address]- 7659 Aug, [facility] [address] [facility] [id number] [place] [id number] Jul, [facility] [address] [facility] [id number], [place] [address]- 7154 Jul, [facility] [address] [facility] [id number], [place] [address] Jul, [facility] [address], [place] [address]- 7044 Jul, [facility] [place] [facility] [address] [facility] [id number], [place] [address]- 3520 May, [facility] [address] [facility] [id number], [place] [address]- 8184 Apr, [facility] [place] [facility] [address] [facility] [id number], [place] [address]- 2973 Apr, [facility] [address] [facility] [id number], [place] [address]- 1256 Mar, [facility] [address] [facility] [id number], [place] [address] Feb, [facility] [address] [id number] [place] [id number] Feb, [facility] [address] [facility] [id number] [place] [id number] Feb, [facility] [place] [facility] [address] [facility] [id number], [place] [address]- 9876 Feb, [facility] [place] [facility] [address] [facility] [id number], [place] [address]4575525- 3956 January, [facility] [address] [id number], [place] [address]- 2549 January, [facility] [address] [id number] [place] [address] Dec, [facility] [address] [id number] [place] [address] Dec, [facility] [address] [id number] [place] [id number] Dec, [facility] [address] [id number] [place] [address] Dec, [facility] [address] [id number] [place] [address] Dec, [facility] [address] [id number] [place] [address] Dec, [facility] [address], [place] [address]- 2546 Dec, [facility] [address], [place] [address]- 2546 Dec, [facility] [address] [id number] [place] [address] Nov, [facility] [address] [id number] [place] [address] Nov, [facility] [address] [id number] [place] [address] Nov, [facility] [address], [place] [address]- 9557 Oct, [facility] [id number], [place] [address]- 6144 Oct, [facility] [address] [id number], [place] [address]- 1872 Sep, [facility] [address], [place] [address]- 7122 Aug, [facility] [address] [id number], [place] [address]- 6046 Aug, [facility] [place] [facility] [address] [facility] [id number] [place] [address]- 8939 Aug, [facility] [place] [facility] [address] [facility] [id number] [place] [address]- 6046 Aug, [facility] [address] [facility] [id number] [place] [address] Aug, [facility] [place] [facility] [address] [facility] [id number], [place] [address]- 3756 Aug, [facility] [place] [facility] [address] [facility] [id number] [place] [address]- 4723 Jul, [facility] [place] [facility] [address] [facility] [id number] [place] [address]- 6236 Jul, [facility] [place] [facility] [id number], [place] [address]- 7503 Jul, [facility] [place] [facility] [address] [facility] [id number], [place] [address]- 6808 Jul, [facility] [address] [id number][place] [address] Jun, [facility] [address] [facility] [id number], [place] [address]779[address] Jun, [facility] [place] [facility] [address] [facility] [id number], [place] [address] 2546 Jun, [facility] [address] [id number], [place] 513348362 Apr, [facility] [place] [facility] [address] [id number], [place] [address]- 2546 Apr, [facility] [place] [facility] [address] [facility] [id number], [place] [address]- 2546 Mar, [facility] [address] [id number][place] 6[address] Feb, [facility] [address] [facility] [id number], [place] [id number] Feb, [facility] [place] [facility] [address] [facility] [id number], [place] [address]- 7704 18 Feb, 2012 [facility] [address] [id number], [place] 606[address]8685 Feb, [facility] [place] [facility] [address] [facility] [facility] [id number], [place] [address]- 6878 Feb, [facility] [place] [facility] [address] [facility] [id number], [place] [address]- 6220 Feb, [facility] [place] [facility] [address] [facility] [id number], [place] [address]- 7102 Feb, [facility] [place] [facility] [address] [id number], [place] [address]- 3509 Feb, [facility] [address] [facility] [id number], [place] 6397[address] January, [facility] [address] [facility] [id number], [place] 54[address]879 Dec, [facility] [place] [facility] [address] [facility] [id number], [place] [address]- 9639 Dec, [facility] [place] [facility] [address] [facility] [id number], [place] [address]- 1132 Dec, [facility] [address] [facility] [id number], [place] [id number] Dec, [facility] [address] [facility] [id number], [place] [address] 2546 Dec, [facility] [address] [id number], [place] 827032832 Dec, [facility] [address] [id number] [place] [address] Nov, [facility] [address] [id number] [place] [id number] Nov, [facility] [address] [id number] [place] [address] Nov, [facility] [address] [id number], [place] 0538[address]263 Nov, [facility] [place] [facility] [address] [facility] [id number] [address] Oct, [facility] [address] [id number] [place] [id number] Oct, [facility] [address] [id number] [place] [id number] Oct, [facility] [address] [id number] [place] [id number] Oct, [facility] [address] [id number] [place] [id number] Oct, [facility] [address] [id number] [place] [id number] Sep, [facility] [address] [id number] [place] [id number] Sep, [facility] [id number] [address] Sep, [facility] [id number] [address] Sep, [facility] [id number] [address] Sep, [facility] [id number] [address] Sep, [facility] [id number] [address] Aug, [facility] [place] [facility] [id number] [address] Aug, [facility] [place] [facility] [id number] [address] Aug, [facility] [place] [facility] [id number] [address] Aug, [facility] [place] [facility] [id number] [address] [address] Aug, [facility] [place] [facility] [id number] [address] Aug, [facility] [place] [facility] [address] [id number] [place] [address] Aug, [facility] [place] [facility] [address] [id number] [place] [address] Aug, [facility] [place] [facility] [address] [id number] [place] [address] Jun, [facility] [place] [facility] [address] [id number] [place] [address] 27 Jun, 2011 [facility] [place] [facility] [address] [id number] [place] [address] Jun, [facility] [place] [facility] [address] [id number] [place] [address] 19 Jun, 2011 [facility] [place] [facility] [address] [id number] [place] [address] 14 Jun, 2011 [facility] [place] [facility] [address] [id number] [place] [address] 13 Jun, 2011 [facility] [place] [facility] [address] [id number] [place] [address] Jun, [facility] [place] [facility] [address] [id number] [place] [address] Jun, [facility] [place] [facility] [address] [id number] [place] [address] Jun, [facility] [place] [facility] [address] [id number] [place] [address] 14 May, 2011 [facility] [place] [facility] [address] [id number] [place] [address] 10 Apr, 2011 [facility] [place] [facility] [address] [id number] [place] [address] 16 Feb, 2011 [facility] [place] [facility] [address] [id number] [place] [address] 20 Dec, 2010 [facility] [place] [facility] [address] [id number] [address] Aug, [facility] [id number], [place] [address] Aug, [facility] [id number], [place] [address] Aug, [facility] [id number], [place] [address] Aug, [facility] [id number], [place] [address] Jul, [facility] [id number] [place] [address] Jun, [facility] [id number], [place] [address] Jun, IMMUNIZATIONS No Known Immunizations SOCIAL HISTORY Never Assessed REASON FOR VISIT f/u PLAN OF CARE Activity Details Follow Up 4 Weeks Reason: VITAL SIGNS Height 59 in 2018-05-10 Weight 229 lbs 2018-05-10 BMI 46.25 kg/m2 2018-05-10 MEDICATIONS Medication Instructions Dosage Frequency Start Date End Date Duration Status Alprazolam 0.5 MG Orally Three times a day as needed for anxeity 1 tablet 30 days Active Albuterol Sulfate (2.5 MG/3ML) 0.083% Inhalation Three times a day as needed 3 ml 0 Active Celexa 10 MG Orally Once a day 1 tablet 24h Feb, 30 days Active Losartan Potassium-HCTZ 50-12.5 MG orally Twice per day 1 tablet 0 Active Trazodone HCl 100 MG Orally at night as needed for sleep 0.5 -1 tablet 30 days Active Atorvastatin Calcium 40 mg Orally Once a day 1 tablet 24h 0 Active Singulair 10 MG Orally Once a day 1 tablet 24h 0 Active Blue Sky Carbonate 300 MG Orally daily 2 capsules in morning and one at night 24h 30 days Active Symbicort 160-4.5 MCG/ACT Inhalation Twice a day 2 puffs 12h 0 Active Ventolin HFA 108 (90 Base) MCG/ACT Inhalation every 4 hrs 2 puffs as needed 4h 0 Active Nicotine Step 2 14 MG/24HR Transdermal Once a day 1 patch to skin 24h Apr, 30 day(s) Active Aspir-81 81 MG Orally Once a day 1 tablet 24h 0 Active Spiriva Respimat 2.5 MCG/ACT Inhalation Once a day 1 puff 24h 0 Active Zyrtec Allergy 10 MG Orally Once a day 1 tablet 24h 0 Active RESULTS No Results PROCEDURES No [...]
--- OUTSIDE RECORDS SUMMARY | 2019-02-02 13:54 | XMS REPORT ---
Author Author ЕКАТЕРИНА MTZ Organization [facility] Address [address] [place] [address] Care Team Providers Care Dispatcher Chief Coal Slurry Name Role Phone ЕКАТЕРИНА MTZ Unavailable PROBLEMS Type Condition ICD9-CM Code TOV83-QZ Code Onset Dates Condition Status SNOMED Code Problem Chronic obstructive pulmonary disease with acute exacerbation J44.1 Active 204694593 Problem MESERET (generalized anxiety disorder) F41.1 Active 47500095 Problem Panic disorder F41.0 Active 761699643 Problem Morbid (severe) obesity due to excess calories E66.01 Active 87852845370866 Problem Body mass index (BMI) of 45.0-49.9 in adult Z68.42 Active 521402239 Problem Coronary artery disease involving navajo coronary artery of navajo heart without angina pectoris I25.10 Active 4967825757772 Problem Mood disorder F39 Active 04695446 Problem Bipolar disorder, in partial remission, most recent episode depressed F31.75 Active 39882992 Problem Claudication I73.9 Active 522376012 Problem Mixed hyperlipidemia E78.2 Active 322572925 Problem PTSD (post-traumatic stress disorder) F43.10 Active 77633432 Problem Sleep apnea in adult G47.30 Active 14796999 Problem COPD mixed type J44.9 Active 84716865 Problem Obesity (BMI 30-39.9) E66.9 Active 997024645 Problem Coronary artery disease involving coronary bypass graft of navajo heart without angina pectoris I25.810 Active 174617704 Problem Bipolar 1 disorder F31.9 Active 291154159 Problem Essential hypertension I10 Active 20772446 ALLERGIES Substance Reaction Event Type Date Status Penicillin V Potassium Swelling/hives Drug Allergy Mar, Active Abilify dizziness Drug Allergy Mar, Active ENCOUNTERS Encounter Location Date Diagnosis [facility] [address] [facility] [id number] [address] May, [place] [address] [address] May, [place] [address] [place] [id number] [place] [address] 18657- 1678 Apr, Bipolar disorder, in partial remission, most recent episode depressed F31.75 ; MESERET (generalized anxiety disorder) F41.1 ; Panic disorder F41.0 and BMI 45.0-49.9, adult Z68.[address] [place] [id number] Apr, [place] [address] [place] [address] 93461- 8830 Apr, Bipolar 1 disorder, depressed F31.9 [place] [address] [place] [id number] [place] [address] 39098- 4568 Mar, Bipolar disorder, in partial remission, most recent episode depressed F31.75 ; MESERET (generalized anxiety disorder) F41.1 ; Panic disorder F41.0 and BMI 45.0-49.9, adult Z68.42 [facility] [id number] [place] [address] [id number] Mar, High risk medication use Z79.899 and Mixed hyperlipidemia E78.[address] [place] [address] [id number] Mar, COPD mixed type J44.9 ; Essential hypertension I10 ; Sleep apnea in adult G47.30 ; Mixed hyperlipidemia E78.2 ; Morbid (severe) obesity due to excess calories E66.01 ; Body mass index (BMI) of 45.0-49.9 in adult Z68.42 ; Tobacco abuse Z72.0 ; Tobacco abuse counseling Z71.6 and BMI 45.0-49.9, adult Z68.42 [place] [address] [place] [address] 88916- 9198 Feb, Bipolar disorder, in partial remission, most recent episode depressed F31.75 ; MESERET (generalized anxiety disorder) F41.1 ; Panic disorder F41.0 and BMI 45.0-49.9, adult Z68.42 [place] [address] [place] [address] [id number] [address] Feb, Bipolar 1 disorder, depressed F31.9 ; PTSD (post-traumatic stress disorder) F43.10 and Panic attacks F41.0 [place] [address] [address] Feb, High risk medication use Z79.899 [place] [address] [id number] [place] [address] 66974- 8913 January, High risk medication use Z79.899 ; Bipolar disorder, in partial remission, most recent episode depressed F31.75 ; MESERET (generalized anxiety disorder) F41.1 ; Panic disorder F41.0 and BMI 45.0-49.9, adult Z68.42 [place] [address] [place] [address] 61925- 3838 January, Bipolar 1 disorder, depressed F31.9 ; PTSD (post-traumatic stress disorder) F43.10 and Panic attacks F41.0 [place] [address], [place] [address] 16[address] January, Bipolar 1 disorder, depressed F31.9 ; PTSD (post-traumatic stress disorder) F43.10 and Panic attacks F41.0 [place] [address], [place] [address] Dec, BMI 45.0-49.9, adult Z68.42 ; Bipolar disorder, in partial remission, most recent episode depressed F31.75 ; MESERET (generalized anxiety disorder) F41.1 and Panic disorder F41.0 [place] [address] [place] [address] 01513- 5008 Dec, Bipolar 1 disorder, depressed F31.9 ; PTSD (post-traumatic stress disorder) F43.10 and Panic attacks F41.0 [place] [address], [place] [address] Nov, Bipolar disorder, in partial remission, most recent episode depressed F31.75 ; MESERET (generalized anxiety disorder) F41.1 and Panic disorder F41.0 [facility] [address] [place] [address] [id number] [address] 7[address] Nov, [facility] [address] [place] [address] 32337- 8650 Nov, [place] [address] [place] [address] 92291- 3797 Oct, BMI 45.0-49.9, adult Z68.42 ; Bipolar disorder, in partial remission, most recent episode depressed F31.75 ; MESERET (generalized anxiety disorder) F41.1 and Panic disorder F41.[address] [id number] [id number] 23 Oct, 2017 BMI 45.0-49.9, adult Z68.42 ; Coronary artery disease involving navajo coronary artery of navajo heart without angina pectoris I25.10 ; Hx of CABG Z95.1 ; Dyspnea on exertion R06.09 ; Essential hypertension I10 ; Mixed hyperlipidemia E78.2 ; Claudication I73.9 and Tobacco use Z72.0 [facility] [address] [id number] [id number] 15 Oct, 2017 BMI 45.0-49.9, adult Z68.42 ; Bipolar 1 disorder, depressed F31.9 and Abscess L02.91 [place] [address] [place] [id number] [address] 14 Oct, 2017 Bipolar 1 disorder, depressed F31.9 ; PTSD (post-traumatic stress disorder) F43.10 and Panic attacks F41.0 [place] [address] [facility] [id number] [address] Sep, BMI 40.0-44.9, adult Z68.41 ; Mood disorder F39 ; MESERET ( generalized anxiety disorder) F41.1 and Panic disorder F41.0 [facility] [address] [place] [id number] [address] Sep, BMI 40.0-44.9, adult Z68.41 [facility] [address] [place] [id number] [place] [address] 45534- 3953 Sep, Bipolar 1 disorder, depressed F31.9 ; PTSD (post-traumatic stress disorder) F43.10 and Panic attacks F41.0 [place] [address] [place] [id number] [place] [address] 60768- 8046 Aug, BMI 40.0-44.9, adult Z68.41 ; Mood disorder F39 ; MESERET ( generalized anxiety disorder) F41.1 and Panic disorder F41.0 [place] [address] [place] [id number] [place] [address] 49451- 8006 Aug, Bipolar 1 disorder, depressed F31.9 ; PTSD (post-traumatic stress disorder) F43.10 and Panic attacks F41.0 [facility] [address] [place] [id number] [place] [address] [id number] Aug, [facility] [address] [place] [address] [id number] [place] [address] [id number] Aug, COPD mixed type J44.9 [place] [address] [place] [id number] [place] [address] 80482- 3263 Aug, [place] [address] [place] [address] [id number] [place] [address] 20190- 5732 Jul, PTSD (post-traumatic stress disorder) F43.10 ; Panic disorder F41.0 ; MESERET (generalized anxiety disorder) F41.1 ; Mood disorder F39 and BMI 40.0-44.9, adult Z68.41 [place] [address] [place] [address] 26259- 7433 Jul, Bipolar 1 disorder, depressed F31.9 ; PTSD (post-traumatic stress disorder) F43.10 and Panic attacks F41.0 [facility] [address] [id number] [place] [address] [id number] Jul, Bipolar 1 disorder, depressed F31.9 [facility] [address] [place] [address] [id number] [place] [address] [id number] Jul, Anxiety F41.9 ; COPD mixed type J44.9 ; Essential hypertension I10 ; Bipolar 1 disorder F31.9 ; High risk medication use Z79.899 ; BMI 40.0-44.9, adult Z68.41 and Coronary artery disease involving coronary bypass graft of navajo heart without angina pectoris I25.810 [address] [id number] Jul, Chronic obstructive pulmonary disease with acute exacerbation J44.1 and Acute nasopharyngitis J00 [address] [place] [address] [id number] Jul, Anxiety F41.9 ; Mixed hyperlipidemia E78.2 and Bipolar 1 disorder F31.9 [facility] [address] [id number] [place] [address] Jun Bipolar 1 disorder F31.9 [facility] [address] [id number] [place] [address] Jun [place] [id number] [place] [address] [id number] Jun, Anxiety F41.9 ; Elevated blood sugar R73.9 ; Mixed hyperlipidemia E78.2 ; COPD mixed type J44.9 ; Essential hypertension I10 ; Bipolar 1 disorder F31.9 ; Coronary artery disease involving coronary bypass graft of navajo heart without angina pectoris I25.810 ; High risk medication use Z79.899 ; Controlled substance agreement signed Z79.899 ; Elevated fasting glucose R73.01 ; Encounter for immunization Z23 and BMI 40.0-44.9, adult Z68.41 [place] [id number] [id number] Jun, Elevated blood sugar R73.9 [address] [place] [address] [id number] Jun, [address] [place] [address] [id number] Jun, Bipolar 1 disorder F31.9 ; Obesity (BMI 30-39.9) E66.9 ; Coronary artery disease involving coronary bypass graft of navajo heart without angina pectoris I25.810 and Essential hypertension I10 [place] [address] [id number] [address] Jun, Coronary artery disease involving coronary bypass graft of navajo heart without angina pectoris I25.810 ; Bipolar 1 disorder F31.9 ; Anxiety F41.9 ; Essential hypertension I10 ; COPD mixed type J44.9 and Mixed hyperlipidemia E78.2 [facility] [address] [place] [id number] [id number] May, Severe single current episode of major depressive disorder, 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.2 ; Bipolar 1 disorder F31.9 ; Anxiety F41.9 ; PTSD (post -traumatic stress disorder) F43.10 ; Coronary artery disease involving coronary bypass graft of navajo heart without angina pectoris I25.810 ; Sleep apnea in adult G47.30 ; Essential hypertension I10 ; High risk medication use Z79.899 ; Obesity (BMI 30-39.9) E66.9 ; Encounter for therapeutic drug level monitoring Z51.81 and COPD mixed type J44.9 [facility] [address] [place] [id number] [id number] May, Severe single current episode of major depressive disorder, 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.2 ; Bipolar 1 disorder F31.9 ; Anxiety F41.9 ; PTSD (post -traumatic stress disorder) F43.10 ; Mixed hyperlipidemia E78.2 ; Coronary artery disease involving coronary bypass graft of navajo heart without angina pectoris I25.810 ; Sleep apnea in adult G47.30 ; Essential hypertension I10 ; High risk medication use Z79.899 ; Controlled substance agreement signed Z79.899 ; Obesity (BMI 30-39.9) E66.9 ; Tobacco abuse Z72.0 ; Tobacco abuse counseling Z71.6 and COPD mixed type J44.9 [facility] [address] [facility] [id number][place] [id number] May, [facility] [address] [address]- 7[address] Dec, [facility] [address] [address] 3411 Dec, [facility] [address] [place] [id number] [place] [address], [place] [address] 2546 May, [facility] [place] [facility] [address] [id number] [place] [address]- 6626 May, [facility] [place] [address] [id number] [place] [id number] Dec, [facility] [place] [facility] [address] [facility] [id number] [place] [address]- 2546 Dec, [facility] [place] [address] [id number] [place] [id number] Dec, [facility] [place] [facility] [address] [id number] [place] [address]- 5406 Dec, [facility] [place] [facility] [address] [facility] [id number] [place] [address]- 6086 Dec, [facility] [place] [facility] [address] [facility] [id number] [place] [address]- 8918 Dec, [facility] [place] [facility] [address] [facility] [id number] [address]- 2741 24 Nov, 2013 [facility] [address] [id number] [place] [id number] Nov, [facility] [place] [address] [id number][place] [address] Nov, [facility] [place] [address] [facility] [id number] [place] [id number] Nov, [facility] [place] [facility] [address] [facility] [id number][place] [address]- 2626 17 Nov, 2013 [facility] [place] [facility] [address] [id number], [place] [address]- 7139 17 Nov, 2013 [facility] [place] [facility] [address] [facility] [id number] [place] [address]- 9876 17 Nov, 2013 [facility] [place] [facility] [address] [facility] [id number] [place] [address]- 6446 15 Nov, 2013 [facility] [place] [facility] [address] [facility] [id number] [place] [address]- 1400 Nov, [facility] [address] [facility] [id number] [address]- 0886 Nov, [facility] [place] [address] [id number] [place] [id number] Nov, [facility] [place] [address] [facility] [id number] [place] [id number] Oct, [facility] [place] [facility] [address] [facility] [id number] [address]- 2546 Oct, [facility] [place] [address] [facility] [id number] [place] [id number] Oct, [facility] [place] [facility] [address] [facility] [id number] [place] [address]- 2546 Oct, [facility] [place] [facility] [address] [facility] [id number][place] [address]- 2546 Oct, [facility] [place] [address] [place] [id number], [place] [address] Sep, [facility] [address] [facility] [id number][place] [address]- 2206 Sep, [facility] [place] [address] [place] [id number], [place] [address]243784 Sep, [facility] [place] [facility] [address] [place] [id number] [address]- 2546 Sep, [facility] [place] [facility] [address] [place] [id number] [address]- 0886 Sep, [facility] [place] [facility] [address] [facility] [id number] [address]- 2546 Sep, [facility] [place] [facility] [address] [facility] [id number] [address]- 0696 Aug, [facility] [place] [address] [facility] [id number], [place] [id number] Aug, [facility] [place] [facility] [address] [facility] [id number][place] [address]- 2546 Aug, [facility] [address] [facility] [id number] [place] [id number] Jul, [facility] [address] [facility] [id number] [address]- 2254 Jul, [facility] [place] [address] [facility] [id number], [place] [id number] Jul, [facility] [place] [facility] [address] [facility] [id number], [place] [address]- 7506 Jul, [facility] [place] [facility] [address] [facility] [id number], [place] [address]- 9364 May, [facility] [place] [facility] [address] [facility] [id number] [address]- 5114 Apr, [facility] [place] [facility] [address] [address]- 8115 Apr, [facility] [address], [place] [address]- 5482 Mar, [facility] [place] [address] [facility] [id number], [place] [id number] Feb, [facility] [address] [id number], [place] [id number] Feb, [facility] [place] [address] [facility] [id number][place] [address] Feb, [facility] [place] [facility] [address], [place] [address]- 5877 Feb, [facility] [place] [facility] [address] [facility] [id number], [place] [address]- 1556 January, [facility] [place] [facility] [address] [facility] [id number] [address]- 0964 January, [facility] [address] [id number] [place] [id number] Dec, [facility] [address] [id number], [place] 638118033 Dec, [facility] [address] [id number], [place] [id number] Dec, [facility] [address] [id number] [place] [id number] Dec, [facility] [address] [id number] [place] [id number] Dec, [facility] [address] [id number] [place] [id number] Dec, [facility] [place] [facility] [address] [facility] [id number] [place] [address]- 2546 Dec, [facility] [place] [facility] [address] [facility] [id number] [place] [address]- 2546 Dec, [facility] [place] [address] [id number] [place] [id number] Nov, [facility] [address] [id number] [place] [id number] Nov, [facility] [address] [id number] [place] [id number] Nov, [facility] [place] [facility] [address] [address]- 2546 Oct, [facility] [place] [facility] [address] [place] [address] [id number] [address]- 2546 Oct, [facility] [place] [facility] [address], [place] [address]- 2546 Sep, [facility] [place] [facility] [address] [address]- 2546 Aug, [facility] [place] [facility] [address] [facility] [id number][place] [address]- 2546 Aug, [facility] [place] [facility] [address] [facility] [id number][place] [address]- 2546 Aug, [facility] [place] [facility] [address] [facility] [id number] [address]- 2546 Aug, [facility] [address] [facility] [id number] [place] [id number] Aug, [facility] [place] [facility] [address], [place] [address]- 8514 Aug, [facility] [place] [facility] [address] [facility] [id number] [place] [address]- 7206 Jul, [facility] [place] [facility] [address] [id number] [place] [address]- 6627 Jul, [facility] [place] [facility] [address] [facility] [id number] [place] [address]- 4229 Jul, [facility] [place] [facility] [address] [facility] [id number] [place] [address]- 2213 Jul, [facility] [address] [id number] [place] [id number] Jun, [facility] [address] [id number] [place] [id number] Jun, [facility] [place] [facility] [address] [id number] [place] [address]- 3200 Jun, [facility] [id number] [place] [address] [id number] Apr, [facility] [place] [facility] [address] [facility] [id number] [address]- 2926 Apr, [facility] [place] [facility] [address]005[address]100[place], [place] [address]- 5326 Mar, [facility] [address] [facility] [id number], [place] [id number] Feb, [facility] [address] [facility] [id number], [place] [id number] Feb, [facility] [place] [facility] [address] [facility] [id number], [place] [address]- 4869 Feb, [facility] [address] [facility] [id number], [place] [id number] Feb, [facility] [place] [facility] [address] [facility] [id number][place] [address]- 9512 Feb, [facility] [place] [facility] [address] [facility] [id number] [place] [address]- 2607 Feb, [facility] [place] [facility] [address] [facility] [id number][place] [address]- 2546 Feb, [facility] [address] [facility] [id number] [address]- 4626 Feb, [facility] [address] [id number], [place] [id number] January, [facility] [address] [id number] [place] [id number] Dec, [facility] [address] [facility] [id number], [place] [address]- 1806 Dec, [facility] [address] [facility] [id number] [address]- 7356 Dec, [facility] [address] [id number], [place] [address]25325519 Dec, [facility] [address], [place] [address]- 1736 Dec, [facility] [address] [id number], [place] [id number] Dec, [facility] [address] [id number] [place] [id number] Nov, [facility] [address] [id number] [place] [id number] Nov, [facility] [address] [id number], [place] 832652680 Nov, [facility] [address] [id number] [place] [id number] Nov, [facility] [address] [facility] [id number][place] [address]- 2546 Oct, [facility] [address] [id number] [place] [id number] Oct, [facility] [address] [id number] [place] [id number] Oct, [facility] [address] [id number] [place] [id number] Oct, [facility] [address] [id number] [id number] Oct, [facility] [address] [id number] [place] [id number] Sep, [facility] [address] [facility] [id number] [place] [id number] Sep, [facility] [address] [id number] [place] [address] Sep, [facility] [address] [id number] [place] [address], [place] [address] Sep, [facility] [address] [id number] [place] [address] Sep, [facility] [address] [id number] [place] [address], [place] [address] Sep, [facility] [address] [facility] [id number] [place] [address] Aug, [facility] [address] [facility] [id number], [place] [address] Aug, [facility] [address] [facility] [id number] [place] [address] Aug, [facility] [address] [facility] [id number][place] [address] Aug, [facility] [address] [facility] [id number], [place] [address] Aug, [facility] [place] [facility] [address] [id number], [place] [address] Aug, [facility] [place] [facility] [address] [facility] [id number], [place] [address] Aug, [facility] [place] [facility] [address] [facility] [id number] [place] [address] Aug, [facility] [place] [facility] [address] [facility] [id number], [place] [address] Jun, [facility] [place] [facility] [address] [facility] [id number], [place] [address] 27 Jun, 2011 [facility] [place] [facility] [address] [id number] [place] [address] 19 Jun, 2011 [facility] [place] [facility] [address] [id number] [place] [id number] 19 Jun, 2011 [facility] [place] [facility] [address] [id number] [place] [address] 14 Jun, 2011 [facility] [place] [facility] [address] [id number] [place] [address] 13 Jun, 2011 [facility] [place] [facility] [address] [id number] [place] [address] 12 Jun, 2011 [facility] [place] [facility] [address] [id number] [place] [address] 12 Jun, 2011 [facility] [place] [facility] [address] [id number] [place] [address] 12 Jun, 2011 [facility] [place] [facility] [address] [id number] [place] [id number] 14 May, 2011 [facility] [place] [facility] [address] [id number] [place] [address] Apr, [facility] [place] [facility] [address] [id number] [place] [address] 16 Feb, 2011 [facility] [place] [facility] [address] [id number] [place] [address] Dec, [facility] [place] [facility] [address] [id number] [place] [address] Aug, [facility] [place] [facility] [address] [id number] [place] [address] Aug, [facility] [place] [facility] [address] [id number] [place] [id number] 15 Aug, 2010 [facility] [place] [facility] [address] [id number] [place] [address] Aug, [facility] [place] [facility] [address] [facility] [id number] [place] [address] Jul, [facility] [address] [facility] [id number] [place] [address] Jun, [facility] [address] [facility] [id number] [place] [address] Jun, IMMUNIZATIONS No Known Immunizations SOCIAL HISTORY Never Assessed REASON FOR VISIT CHM- Hypertension and COPD, Pt sees for psych disorders [facility] Activity Details Follow Up 3 Months, prn Reason:CHM HTN, COPD VITAL SIGNS Height 59 in 2018-04-01 Weight 232.2 lbs 2018-04-01 Temperature 97 degrees Fahrenheit 2018-04-01 Heart Rate 80 bpm 2018-04-01 Respiratory Rate 18 2018-04-01 BMI 46.89 kg/m2 2018-04-01 Blood pressure systolic 138 mmHg 2018-04-01 Blood pressure diastolic 80 mmHg 2018-04-01 MEDICATIONS Medication Instructions Dosage Frequency Start Date End Date Duration Status Aspir-81 81 MG Orally Once a day 1 tablet 24h 0 Active Ventolin HFA 108 (90 Base) MCG/ACT Inhalation every 4 hrs 2 puffs as needed 4h 0 Active Albuterol Sulfate (2.5 MG/3ML) 0.083% Inhalation Three times a day as needed 3 ml 0 Active Symbicort 160-4.5 MCG/ACT Inhalation Twice a day 2 puffs 12h 0 Active Zyrtec Allergy 10 MG Orally Once a day 1 tablet 24h 0 Active Trihexyphenidyl HCl 2 MG Orally Three times a day 0.5 tablet 8h January, Active Celexa 10 MG Orally Once a day 1 tablet 24h Feb, 30 day(s) Active Singulair 10 MG Orally Once a day 1 tablet 24h 0 Active Alprazolam 0.5 MG Orally Three times a day as needed for anxeity 1 tablet 30 days Active Trazodone HCl 100 MG Orally at night as needed for sleep 0.5 -1 tablet Active Nicotine Step 1 21 MG/24HR Transdermal Once a day 1 patch to skin 24h Mar, Apr, 30 day(s) Active Spiriva Respimat 2.5 MCG/ACT Inhalation Once a day 1 puff 24h 0 Active Losartan Potassium-HCTZ 50-12.5 MG orally Twice per day 1 tablet 0 Active [place] Carbonate 300 MG Orally daily 2 capsules in morning and one at night 24h Active Atorvastatin Calcium 40 mg Orally Once a day 1 tablet 24h 0 Active RESULTS Name Result Date Reference Range MICROALBUMIN, URINE (IN HOUSE) 2018-04-01 MICROALBUMIN normal Lot # [id number] Exp date 08/2018 Clarity clear Color yellow ALB 10 CRE 50 A:C (IN HOUSE) 30 Control + Control Lot # Exp date PROCEDURES Procedure Date Ordered Result Body Site MICROALBUMIN, SEMIQUANT April 01, 2018 INSTRUCTIONS MEDICATIONS ADMINISTERED No Known Medications [...] Coronary atherosclerosis of unspecified type of vessel, [place] or graft Medical History Coronary atherosclerosis of unspecified type of vessel, [place] or graft Surgical History section x4 Surgical History CABG x3 Surgical History Left arm-Plate and screws placed Hospitalization History Surgery(s)/Childbirth(s) only
--- OUTSIDE RECORDS SUMMARY | 2019-02-02 13:54 | XMS REPORT ---
Author Author DEANA KEVON [facility] Address [address] [place] [address] Care Team Providers Care Manager Deli Name Role Phone ANNIMARILYN KEVON Unavailable PROBLEMS Type Condition ICD9-CM Code JTU71-HP Code Onset Dates Condition Status SNOMED Code Problem Chronic obstructive pulmonary disease with acute exacerbation J44.1 Active 008877829 Problem MESERET (generalized anxiety disorder) F41.1 Active 90587675 Problem Panic disorder F41.0 Active 313708408 Problem Morbid (severe) obesity due to excess calories E66.01 Active 05969059688400 Problem Body mass index (BMI) of 45.0-49.9 in adult Z68.42 Active 598651772 Problem Coronary artery disease involving port lions coronary artery of port lions heart without angina pectoris I25.10 Active 9001607974150 Problem Mood disorder F39 Active 14938774 Problem Bipolar disorder, in partial remission, most recent episode depressed F31.75 Active 65290646 Problem Claudication I73.9 Active 476202219 Problem Mixed hyperlipidemia E78.2 Active 054981791 Problem PTSD (post-traumatic stress disorder) F43.10 Active 04353567 Problem Sleep apnea in adult G47.30 Active 66434579 Problem COPD mixed type J44.9 Active 23952962 Problem Obesity (BMI 30-39.9) E66.9 Active 501228231 Problem Coronary artery disease involving coronary bypass graft of port lions heart without angina pectoris I25.810 Active 291090266 Problem Bipolar 1 disorder F31.9 Active 820022111 Problem Essential hypertension I10 Active 44609473 ALLERGIES Substance Reaction Event Type Date Status Penicillin V Potassium Swelling/hives Drug Allergy Mar, Active Abilify dizziness Drug Allergy Mar, Active ENCOUNTERS Encounter Location Date Diagnosis [facility] [address] [facility] [id number] [address] May, [facility] [address] [address] May, [place] [address] [place] [address]- 6760 Apr, Bipolar disorder, in partial remission, most recent episode depressed F31.75 ; MESERET (generalized anxiety disorder) F41.1 ; Panic disorder F41.0 and BMI 45.0-49.9, adult Z68.42 [place] [id number] [place] [address] [id number] Apr, [place] [address] [place] [id number] [place] [address] 75176- 5076 Apr, Bipolar 1 disorder, depressed F31.9 [place] [id number] [place] [address] 92170- 2169 Mar, Bipolar disorder, in partial remission, most recent episode depressed F31.75 ; MESERET (generalized anxiety disorder) F41.1 ; Panic disorder F41.0 and BMI 45.0-49.9, adult Z68.42 [address] [place] [address] [id number] Mar, High risk medication use Z79.899 and Mixed hyperlipidemia E78.[address] [place] [address] [id number] Mar, COPD mixed type J44.9 ; Essential hypertension I10 ; Sleep apnea in adult G47.30 ; Mixed hyperlipidemia E78.2 ; Morbid (severe) obesity due to excess calories E66.01 ; Body mass index (BMI) of 45.0-49.9 in adult Z68.42 ; Tobacco abuse Z72.0 ; Tobacco abuse counseling Z71.6 and BMI 45.0-49.9, adult Z68.42 [place] [address] [place] [address] 73818- 5080 Feb, Bipolar disorder, in partial remission, most recent episode depressed F31.75 ; MESERET (generalized anxiety disorder) F41.1 ; Panic disorder F41.0 and BMI 45.0-49.9, adult Z68.42 [place] [address], [place] [address] Feb, Bipolar 1 disorder, depressed F31.9 ; PTSD (post-traumatic stress disorder) F43.10 and Panic attacks F41.0 [place] [address], [place] [address] Feb, High risk medication use Z79.899 [place] [address] [place] [id number] [place] [address] 27706- 4264 January, High risk medication use Z79.899 ; Bipolar disorder, in partial remission, most recent episode depressed F31.75 ; MESERET (generalized anxiety disorder) F41.1 ; Panic disorder F41.0 and BMI 45.0-49.9, adult Z68.42 [place] [address] [place] [address] 57963- 2949 January, Bipolar 1 disorder, depressed F31.9 ; PTSD (post-traumatic stress disorder) F43.10 and Panic attacks F41.0 [place] [address] [place] [address] 48697- 3330 January, Bipolar 1 disorder, depressed F31.9 ; PTSD (post-traumatic stress disorder) F43.10 and Panic attacks F41.0 [place] [address], [place] [address] Dec, BMI 45.0-49.9, adult Z68.42 ; Bipolar disorder, in partial remission, most recent episode depressed F31.75 ; MESERET (generalized anxiety disorder) F41.1 and Panic disorder F41.0 [place] [address] [place] [address]66- 8845 Dec, Bipolar 1 disorder, depressed F31.9 ; PTSD (post-traumatic stress disorder) F43.10 and Panic attacks F41.0 [place] [address], [place] [address] Nov, Bipolar disorder, in partial remission, most recent episode depressed F31.75 ; MESERET (generalized anxiety disorder) F41.1 and Panic disorder F41.0 [facility] [address] [facility] [id number], [place] [address] Nov, [facility] [address] [place] [id number], [place] [address] Nov, [facility] [address] [facility] [id number], [place] [address] Oct, BMI 45.0-49.9, adult Z68.42 ; Bipolar disorder, in partial remission, most recent episode depressed F31.75 ; MESERET (generalized anxiety disorder) F41.1 and Panic disorder F41.[address] [id number] [id number] 23 Oct, 2017 BMI 45.0-49.9, adult Z68.42 ; Coronary artery disease involving port lions coronary artery of port lions heart without angina pectoris I25.10 ; Hx of CABG Z95.1 ; Dyspnea on exertion R06.09 ; Essential hypertension I10 ; Mixed hyperlipidemia E78.2 ; Claudication I73.9 and Tobacco use Z72.0 [facility] [address] [facility] [id number] [id number] 15 Oct, 2017 BMI 45.0-49.9, adult Z68.42 ; Bipolar 1 disorder, depressed F31.9 and Abscess L02.91 [facility] [address] [facility] [id number], [place] [address] 14 Oct, 2017 Bipolar 1 disorder, depressed F31.9 ; PTSD (post-traumatic stress disorder) F43.10 and Panic attacks F41.0 [facility] [address] [facility] [id number], [place] [address] 16[address] Sep, BMI 40.0-44.9, adult Z68.41 ; Mood disorder F39 ; MESERET ( generalized anxiety disorder) F41.1 and Panic disorder F41.0 [facility] [address] [facility] [id number], [place] [address] 9[address] Sep, BMI 40.0-44.9, adult Z68.41 [facility] [address] [place] [address] 36598- 5974 Sep, Bipolar 1 disorder, depressed F31.9 ; PTSD (post-traumatic stress disorder) F43.10 and Panic attacks F41.0 [facility] [address] [place] [id number] [place] [address] 37647- 3420 27 Aug, 2017 BMI 40.0-44.9, adult Z68.41 ; Mood disorder F39 ; MESERET ( generalized anxiety disorder) F41.1 and Panic disorder F41.0 [place] [address] [place] [id number] [place] [address] 86494- 4919 Aug, Bipolar 1 disorder, depressed F31.9 ; PTSD (post-traumatic stress disorder) F43.10 and Panic attacks F41.0 [facility] [address] [place] [id number] [place] [address] [id number] Aug, [facility] [address] [place] [id number] [place] [address] [id number] Aug, COPD mixed type J44.9 [place] [address] [place] [id number] [place] [address] 57238- 3121 Aug, [place] [address] [place] [id number] [place] [address] 38658- 2807 Jul, PTSD (post-traumatic stress disorder) F43.10 ; Panic disorder F41.0 ; MESERET (generalized anxiety disorder) F41.1 ; Mood disorder F39 and BMI 40.0-44.9, adult Z68.41 [facility] [address] [place] [address] 36778- 3851 Jul, Bipolar 1 disorder, depressed F31.9 ; PTSD (post-traumatic stress disorder) F43.10 and Panic attacks F41.0 [facility] [address] [place] [id number] [place] [address] [id number] Jul, Bipolar 1 disorder, depressed F31.9 [facility] [id number] [place] [address] [id number] Jul, Anxiety F41.9 ; COPD mixed type J44.9 ; Essential hypertension I10 ; Bipolar 1 disorder F31.9 ; High risk medication use Z79.899 ; BMI 40.0-44.9, adult Z68.41 and Coronary artery disease involving coronary bypass graft of port lions heart without angina pectoris I25.[address] [place] [address] [id number] Jul, Chronic obstructive pulmonary disease with acute exacerbation J44.1 and Acute nasopharyngitis J00 [address] [place] [address] [id number] Jul, Anxiety F41.9 ; Mixed hyperlipidemia E78.2 and Bipolar 1 disorder F31.9 [facility] [address] [id number] [place] [address] Jun Bipolar 1 disorder F31.9 [facility] [address] [id number] [place] [address] Jun [address] [place] [address] [id number] Jun, Anxiety F41.9 ; Elevated blood sugar R73.9 ; Mixed hyperlipidemia E78.2 ; COPD mixed type J44.9 ; Essential hypertension I10 ; Bipolar 1 disorder F31.9 ; Coronary artery disease involving coronary bypass graft of port lions heart without angina pectoris I25.810 ; High risk medication use Z79.899 ; Controlled substance agreement signed Z79.899 ; Elevated fasting glucose R73.01 ; Encounter for immunization Z23 and BMI 40.0-44.9, adult Z68.41 [place] [id number] [id number] Jun, Elevated blood sugar R73.9 [address] [place] [address] [id number] Jun, [place] [id number] [place] [address] [id number] Jun, Bipolar 1 disorder F31.9 ; Obesity (BMI 30-39.9) E66.9 ; Coronary artery disease involving coronary bypass graft of port lions heart without angina pectoris I25.810 and Essential hypertension I10 [id number] [id number] Jun, Coronary artery disease involving coronary bypass graft of port lions heart without angina pectoris I25.810 ; Bipolar 1 disorder F31.9 ; Anxiety F41.9 ; Essential hypertension I10 ; COPD mixed type J44.9 and Mixed hyperlipidemia E78.2 [facility] [address] [place] [id number] [id number] May, Severe single current episode of major depressive disorder, 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.2 ; Bipolar 1 disorder F31.9 ; Anxiety F41.9 ; PTSD (post -traumatic stress disorder) F43.10 ; Coronary artery disease involving coronary bypass graft of port lions heart without angina pectoris I25.810 ; Sleep apnea in adult G47.30 ; Essential hypertension I10 ; High risk medication use Z79.899 ; Obesity (BMI 30-39.9) E66.9 ; Encounter for therapeutic drug level monitoring Z51.81 and COPD mixed type J44.9 [facility] [address] [place] [id number] [address] May, Severe single current episode of major depressive disorder, 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.2 ; Bipolar 1 disorder F31.9 ; Anxiety F41.9 ; PTSD (post -traumatic stress disorder) F43.10 ; Mixed hyperlipidemia E78.2 ; Coronary artery disease involving coronary bypass graft of port lions heart without angina pectoris I25.810 ; Sleep apnea in adult G47.30 ; Essential hypertension I10 ; High risk medication use Z79.899 ; Controlled substance agreement signed Z79.899 ; Obesity (BMI 30-39.9) E66.9 ; Tobacco abuse Z72.0 ; Tobacco abuse counseling Z71.6 and COPD mixed type J44.9 [facility] [address] [facility] [id number][place] [id number] May, [facility] [address] [address] 33[address] Dec, [facility] [address] [address] Dec, [facility] [address] [place] [id number] [place] [address] 19229739- 0170 May, [facility] [place] [facility] [address] [id number] [place] [address] 5932 May, [facility] [place] [address] [id number] [place] [id number] Dec, [facility] [place] [facility] [address] [id number] [place] [address]- 4926 Dec, [facility] [address] [facility] [id number] [place] [id number] Dec, [facility] [place] [facility] [address] [id number] [place] [address]- 9436 Dec, [facility] [place] [facility] [address] [id number] [place] [address]- 7896 Dec, [facility] [place] [facility] [address] [facility] [id number] [place] [address]- 2370 Dec, [facility] [place] [facility] [address] [facility] [id number] [place] [address]- 1464 24 Nov, 2013 [facility] [address] [id number] [place] [id number] Nov, [facility] [address] [id number] [place] [id number] Nov, [facility] [address] [facility] [id number] [place] [id number] Nov, [facility] [place] [facility] [address] [facility] [id number], [place] [address]- 6246 Nov, [facility] [place] [facility] [address] [facility] [id number], [place] [address]- 1812 17 Nov, 2013 [facility] [place] [facility] [address] [facility] [id number], [place] [address]- 8819 17 Nov, 2013 [facility] [place] [facility] [address] [facility] [id number] [place] [address]- 0834 15 Nov, 2013 [facility] [place] [facility] [address] [facility] [id number] [place] [address]- 5777 14 Nov, 2013 [facility] [place] [facility] [address] [facility] [id number], [place] [address]- 2546 Nov, [facility] [address] [facility] [id number] [place] [id number] Nov, [facility] [address] [facility] [id number][place] [id number] Oct, [facility] [place] [facility] [address] [facility] [id number], [place] [address]- 2546 Oct, [facility] [address] [facility] [id number], [place] [id number] Oct, [facility] [place] [facility] [address] [facility] [id number], [place] [address]- 2546 Oct, [facility] [place] [facility] [address] [place] [id number], [place] [address]- 2546 Oct, [facility] [id number][place] [id number] Sep, [facility] [place] [facility] [address], [place] [address]- 7356 Sep, [facility] [address] [place] [id number], [place] [address]4561 Sep, [facility] [place] [facility] [address]100[place], [place] [address]- 0126 Sep, [facility] [place] [facility] [address], [place] [address]- 1789 Sep, [facility] [place] [facility] [address] [facility] [id number], [place] [address]- 8946 Sep, [facility] [place] [facility] [address] [facility] [id number], [place] [address]- 6376 Aug, [facility] [address] [facility] [id number][place] [id number] Aug, [facility] [place] [facility] [address] [place] [id number], [place] [address]- 2546 Aug, [facility] [address] [place] [address] [id number][place] [id number] Jul, [facility] [place] [facility] [address] [id number] [place] [address]- 5598 Jul, [facility] [address] [id number], [place] [address]46[address] Jul, [facility] [address] [facility] [id number], [place] [address]- 2701 Jul, [facility] [place] [facility] [address] [facility] [id number] [place] [address]- 6864 May, [facility] [place] [facility] [address] [facility] [id number] [place] [address]- 2485 Apr, [facility] [place] [facility] [address] [facility] [id number] [place] [address]- 7009 Apr, [facility] [place] [facility] [address] [facility] [id number] [place] [address]- 0653 Mar, [facility] [address] [id number][place] [id number] Feb, [facility] [address] [id number], [place] [address]1938 Feb, [facility] [address] [id number], [place] 799468[address] Feb, [facility] [address] [facility] [id number], [place] [address]- 6506 Feb, [facility] [place] [facility] [address] [facility] [id number], [place] [address]- 2546 January, [facility] [place] [facility] [address] [facility] [id number], [place] [address]- 2546 January, [facility] [address] [id number] [place] [address] Dec, [facility] [address] [id number], [place] [address] Dec, [facility] [address] [id number], [place] 869396714 Dec, [facility] [address] [id number], [place] 25486[address] Dec, [facility] [address] [id number] [place] [id number] Dec, [facility] [address] [id number] [place] [address] Dec, [facility] [address] [id number] [place] [address]- 2546 Dec, [facility] [address] [facility] [id number] [place] [address]- 2546 Dec, [facility] [address] [id number] [place] [address] Nov, [facility] [address] [id number] [place] [id number] Nov, [facility] [address] [id number] [place] [id number] Nov, [facility] [address] [place] [address] [id number], [place] [address]- 2546 Oct, [facility] [address] [facility] [id number], [place] [address]- 2546 Oct, [facility] [address] [address] [id number], [place] [address]- 0976 Sep, [facility] [address] [facility] [id number], [place] [address]- 0356 Aug, [facility] [address] [id number], [place] [address]- 6496 Aug, [facility] [address] [facility] [id number], [place] [address]- 2546 Aug, [facility] [place] [facility] [address] [facility] [id number], [place] [address]- 2546 Aug, [facility] [address] [facility] [id number] [place] [id number] Aug, [facility] [address] [facility] [id number], [place] [address]- 2546 Aug, [facility] [place] [facility] [address] [facility] [id number], [place] [address]- 5788 Jul, [facility] [place] [facility] [address] [facility] [id number] [place] [address]- 9656 Jul, [facility] [place] [facility] [address] [facility] [id number], [place] [address]- 7649 Jul, [facility] [place] [facility] [address] [facility] [id number] [place] [address]- 0410 Jul, [facility] [address] [id number], [place] 995676975 Jun, [facility] [address] [id number] [id number] Jun, [facility] [place] [facility] [address] [facility] [id number], [place] [address]- 5238 Jun, [facility] [address] [place] [address] [id number], [place] [id number] Apr, [facility] [place] [facility] [address] [id number], [place] [address]- 0763 Apr, [facility] [place] [facility] [address] [facility] [id number], [place] [address]- 3535 Mar, [facility] [address] [facility] [id number], [place] [id number] Feb, [facility] [address] [facility] [id number], [place] [id number] Feb, [facility] [place] [facility] [address] [facility] [id number], [place] [address]- 3876 Feb, [facility] [address] [facility] [id number], [place] 102836364 Feb, [facility] [place] [facility] [address] [facility] [id number], [place] [address]- 0559 Feb, [facility] [place] [facility] [address] [facility] [id number], [place] [address]- 9835 Feb, [facility] [place] [facility] [address], [place] [address]- 9836 Feb, [facility] [address] [facility] [id number], [place] [address]- 6956 Feb, [facility] [address] [id number] [place] [id number] January, [facility] [address] [id number] [place] [id number] Dec, [facility] [address] [facility] [id number] [place] [address] 2542 Dec, [facility] [address] [facility] [id number], [place] [address]- 5744 Dec, [facility] [address] [id number] [place] [id number] Dec, [facility] [address] [facility] [id number], [place] [address]- 7126 Dec, [facility] [address] [id number] [place] [id number] Dec, [facility] [address] [id number] [place] [id number] Nov, [facility] [address] [id number] [place] [id number] Nov, [facility] [address] [id number] [place] 8[address] Nov, [facility] [address] [id number] [place] [id number] Nov, [facility] [address]65100[place], [place] [address]- 2546 Oct, [facility] [address] [id number] [place] [id number] Oct, [facility] [address] [id number] [place] [id number] Oct, [facility] [address] [id number] [place] [id number] Oct, [facility] [address] [id number] [place] [id number] Oct, [facility] [address] [facility] [id number] [place] [id number] Sep, [facility] [address] [id number] [place] [id number] Sep, [facility] [address] [id number] [place] [address] Sep, [facility] [address] [facility] [id number] [place] [address] Sep, [facility] [address] [id number] [place] [address] Sep, [facility] [address] [facility] [id number] [place] [address], [place] [address] Sep, [facility] [address] [facility] [id number] [place] [address] Aug, [facility] [id number] [address] Aug, [facility] [address] [facility] [id number] [place] [address] Aug, [facility] [address] [facility] [id number] [place] [address] Aug, [facility] [address] [facility] [id number] [place] [address] Aug, [facility] [address] [facility] [id number] [place] [address] Aug, [facility] [address] [facility] [id number] [address] Aug, [facility] [place] [facility] [address] [facility] [id number] [place] [address] Aug, [facility] [address] [facility] [id number] [place] [address] Jun, [facility] [address] [facility] [id number] [place] [address] Jun, [facility] [place] [facility] [address] [id number] [place] [address] 19 Jun, 2011 [facility] [place] [facility] [address] [id number] [place] [address] 19 Jun, 2011 [facility] [place] [facility] [address] [id number] [place] [address] 14 Jun, 2011 [facility] [place] [facility] [address] [id number] [place] [address] 13 Jun, 2011 [facility] [place] [facility] [address] [id number] [place] [address] 12 Jun, 2011 [facility] [place] [facility] [address] [id number] [place] [address] 12 Jun, 2011 [facility] [place] [facility] [address] [id number] [place] [address] 12 Jun, 2011 [facility] [place] [facility] [address] [id number] [place] [address] 14 May, 2011 [facility] [place] [facility] [address] [id number] [place] [address] Apr, [facility] [place] [facility] [address] [id number] [place] [address] 16 Feb, 2011 [facility] [place] [facility] [address] [id number] [place] [address] Dec, [facility] [place] [facility] [address] [id number], [place] [address] Aug, [facility] [place] [facility] [address] [id number] [place] [address] Aug, [facility] [place] [facility] [address] [id number] [place] [address] 15 Aug, 2010 [facility] [place] [facility] [address] [id number] [place] [address] Aug, [facility] [place] [facility] [address] [id number], [place] [address] Jul, [facility] [address] [facility] [id number] [place] [address] Jun, [facility] [address] [facility] [id number], [place] [address] Jun, IMMUNIZATIONS No Known Immunizations SOCIAL HISTORY Never Assessed REASON FOR VISIT f/aleksander Sandy MA , contract, PDM PLAN OF CARE Activity Details Follow Up 4 Weeks Reason: VITAL SIGNS Height 59 in 2018-04-12 Weight 234.0 lbs 2018-04-12 Heart Rate 87 bpm 2018-04-12 Respiratory Rate 20 2018-04-12 Oximetry 94 % 2018-04-12 BMI 47.26 kg/m2 2018-04-12 Blood pressure systolic 148 mmHg 2018-04-12 Blood pressure diastolic 90 mmHg 2018-04-12 MEDICATIONS Medication Instructions Dosage Frequency Start Date End Date Duration Status [place] Carbonate 300 MG Orally daily 2 capsules in morning and one at night 24h Active Alprazolam 0.5 MG Orally Three times a day as needed for anxeity 1 tablet 30 days Active Trazodone HCl 100 MG Orally at night as needed for sleep 0.5 -1 tablet Active Zyrtec Allergy 10 MG Orally Once a day 1 tablet 24h 0 Active Atorvastatin Calcium 40 mg Orally Once a day 1 tablet 24h 0 Active Losartan Potassium-HCTZ 50-12.5 MG orally Twice per day 1 tablet 0 Active Albuterol Sulfate (2.5 MG/3ML) 0.083% Inhalation Three times a day as needed 3 ml 0 Active Nicotine Step 1 21 MG/24HR Transdermal Once a day 1 patch to skin 24h Mar, Apr, 30 day(s) Active Trihexyphenidyl HCl 2 MG Orally Three times a day 0.5 tablet 8h January, Active Spiriva Respimat 2.5 MCG/ACT Inhalation Once a day 1 puff 24h 0 Active Ventolin HFA 108 (90 Base) MCG/ACT Inhalation every 4 hrs 2 puffs as needed 4h 0 Active Singulair 10 MG Orally Once a day 1 tablet 24h 0 Active Celexa 10 MG Orally Once a day 1 tablet 24h Feb, 30 days Active Aspir-81 81 MG Orally Once a day 1 tablet 24h 0 Active Symbicort 160-4.5 MCG/ACT Inhalation Twice a day 2 puffs 12h 0 Active RESULTS No Results PROCEDURES No [...] Coronary atherosclerosis of unspecified type of vessel, port lions or graft Medical History Coronary atherosclerosis of unspecified type of vessel, port lions or graft Surgical History section x4 Surgical History CABG x3 Surgical History Left arm-Plate and screws placed Hospitalization History Surgery(s)/Childbirth(s) only
--- OUTSIDE RECORDS SUMMARY | 2019-02-02 13:55 | XMS REPORT ---
Author Author DEANA KEVON [facility] Address [address] [place] [address] Care Team Providers Care Customer Complaint Service Supervisor Name Role Phone DEANA KEVON Unavailable PROBLEMS Type Condition ICD9-CM Code [id number] Code Onset Dates Condition Status SNOMED Code Problem Chronic obstructive pulmonary disease with acute exacerbation J44.1 Active 028775692 Problem MESERET (generalized anxiety disorder) F41.1 Active 71437542 Problem Panic disorder F41.0 Active 678588965 Problem Morbid (severe) obesity due to excess calories E66.01 Active 01449133714794 Problem Body mass index (BMI) of 45.0-49.9 in adult Z68.42 Active 698200009 Problem Coronary artery disease involving platinum coronary artery of platinum heart without angina pectoris I25.10 Active 5031831244937 Problem Mood disorder F39 Active 27361812 Problem Bipolar disorder, in partial remission, most recent episode depressed F31.75 Active 36672149 Problem Claudication I73.9 Active 467412778 Problem Mixed hyperlipidemia E78.2 Active 676545143 Problem PTSD (post-traumatic stress disorder) F43.10 Active 81468800 Problem Sleep apnea in adult G47.30 Active 21013755 Problem COPD mixed type J44.9 Active 38224437 Problem Obesity (BMI 30-39.9) E66.9 Active 065587288 Problem Coronary artery disease involving coronary bypass graft of platinum heart without angina pectoris I25.810 Active 053086652 Problem Bipolar 1 disorder F31.9 Active 409141647 Problem Essential hypertension I10 Active 39965089 ALLERGIES Substance Reaction Event Type Date Status Penicillin V Potassium Swelling/hives Drug Allergy Feb, Active Abilify dizziness Drug Allergy Feb, Active ENCOUNTERS Encounter Location Date Diagnosis [facility] [address] [facility] [id number] [address] May, [facility] [address] [address] May, [place] [address] [place] [address]67- 2847 Apr, Bipolar disorder, in partial remission, most recent episode depressed F31.75 ; MESERET (generalized anxiety disorder) F41.1 ; Panic disorder F41.0 and BMI 45.0-49.9, adult Z68.42 [place] [id number] [place] [address] [id number] Apr, [place] [address] [place] [id number] [place] [address] 55029- 4067 Apr, Bipolar 1 disorder, depressed F31.9 [place] [id number] [place] [address] 02776- 6322 Mar, Bipolar disorder, in partial remission, most recent episode depressed F31.75 ; MESERET (generalized anxiety disorder) F41.1 ; Panic disorder F41.0 and BMI 45.0-49.9, adult Z68.42 [address] [place] [address] [id number] Mar, High risk medication use Z79.899 and Mixed hyperlipidemia E78.[address] [place] [address] [id number] Mar, COPD mixed type J44.9 ; Essential hypertension I10 ; Sleep apnea in adult G47.30 ; Mixed hyperlipidemia E78.2 ; Morbid (severe) obesity due to excess calories E66.01 ; Body mass index (BMI) of 45.0-49.9 in adult Z68.42 ; Tobacco abuse Z72.0 ; Tobacco abuse counseling Z71.6 and BMI 45.0-49.9, adult Z68.42 [place] [address] [place] [address] 95588- 2807 Feb, Bipolar disorder, in partial remission, most recent episode depressed F31.75 ; MESERET (generalized anxiety disorder) F41.1 ; Panic disorder F41.0 and BMI 45.0-49.9, adult Z68.42 [place] [address] [address] Feb, Bipolar 1 disorder, depressed F31.9 ; PTSD (post-traumatic stress disorder) F43.10 and Panic attacks F41.0 [place] [address] [address] 6[address] Feb, High risk medication use Z79.899 [place] [address] [place] [id number] [place] [address] 25788- 4037 January, High risk medication use Z79.899 ; Bipolar disorder, in partial remission, most recent episode depressed F31.75 ; MESERET (generalized anxiety disorder) F41.1 ; Panic disorder F41.0 and BMI 45.0-49.9, adult Z68.42 [place] [address] [place] [address] 70093- 6889 January, Bipolar 1 disorder, depressed F31.9 ; PTSD (post-traumatic stress disorder) F43.10 and Panic attacks F41.0 [place] [address] [place] [address] 80723- 6008 January, Bipolar 1 disorder, depressed F31.9 ; PTSD (post-traumatic stress disorder) F43.10 and Panic attacks F41.0 [place] [address] [address] 8[address] Dec, BMI 45.0-49.9, adult Z68.42 ; Bipolar disorder, in partial remission, most recent episode depressed F31.75 ; MESERET (generalized anxiety disorder) F41.1 and Panic disorder F41.0 [place] [address] [place] [address] 15624- 1395 Dec, Bipolar 1 disorder, depressed F31.9 ; PTSD (post-traumatic stress disorder) F43.10 and Panic attacks F41.0 [place] [address] [address] Nov, Bipolar disorder, in partial remission, most recent episode depressed F31.75 ; MESERET (generalized anxiety disorder) F41.1 and Panic disorder F41.0 [facility] [address] [facility] [id number], [place] [address] Nov, [facility] [address] [place] [id number] [address] 7[address] Nov, [facility] [address] [facility] [id number][place] [address] Oct, BMI 45.0-49.9, adult Z68.42 ; Bipolar disorder, in partial remission, most recent episode depressed F31.75 ; MESERET (generalized anxiety disorder) F41.1 and Panic disorder F41.[address] [id number] [id number] 23 Oct, 2017 BMI 45.0-49.9, adult Z68.42 ; Coronary artery disease involving platinum coronary artery of platinum heart without angina pectoris I25.10 ; Hx of CABG Z95.1 ; Dyspnea on exertion R06.09 ; Essential hypertension I10 ; Mixed hyperlipidemia E78.2 ; Claudication I73.9 and Tobacco use Z72.0 [facility] [address] [facility] [id number] [id number] 15 Oct, 2017 BMI 45.0-49.9, adult Z68.42 ; Bipolar 1 disorder, depressed F31.9 and Abscess L02.91 [facility] [address] [facility] [id number] [address] 14 Oct, 2017 Bipolar 1 disorder, depressed F31.9 ; PTSD (post-traumatic stress disorder) F43.10 and Panic attacks F41.0 [facility] [address] [facility] [id number], [place] [address] 395[address] Sep, BMI 40.0-44.9, adult Z68.41 ; Mood disorder F39 ; MESERET ( generalized anxiety disorder) F41.1 and Panic disorder F41.0 [facility] [address] [facility] [id number], [place] [address]- 57[address] Sep, BMI 40.0-44.9, adult Z68.41 [facility] [address] [place] [address] 33746- 9767 Sep, Bipolar 1 disorder, depressed F31.9 ; PTSD (post-traumatic stress disorder) F43.10 and Panic attacks F41.0 [facility] [address] [place] [id number] [place] [address] 40767- 2584 27 Aug, 2017 BMI 40.0-44.9, adult Z68.41 ; Mood disorder F39 ; MESERET ( generalized anxiety disorder) F41.1 and Panic disorder F41.0 [place] [address] [place] [id number] [place] [address] 33757- 8411 Aug, Bipolar 1 disorder, depressed F31.9 ; PTSD (post-traumatic stress disorder) F43.10 and Panic attacks F41.0 [facility] [address] [place] [id number] [place] [address] [id number] Aug, [facility] [address] [place] [id number] [place] [address] [id number] Aug, COPD mixed type J44.9 [place] [address] [place] [id number] [place] [address] 11046- 7354 Aug, [place] [address] [place] [id number] [place] [address] 60052- 8619 Jul, PTSD (post-traumatic stress disorder) F43.10 ; Panic disorder F41.0 ; MESERET (generalized anxiety disorder) F41.1 ; Mood disorder F39 and BMI 40.0-44.9, adult Z68.41 [facility] [address] [place] [address] 22830- 1463 Jul, Bipolar 1 disorder, depressed F31.9 ; PTSD (post-traumatic stress disorder) F43.10 and Panic attacks F41.0 [facility] [address] [place] [id number] [place] [address] [id number] Jul, Bipolar 1 disorder, depressed F31.9 [facility] [id number] [place] [address] [id number] Jul, Anxiety F41.9 ; COPD mixed type J44.9 ; Essential hypertension I10 ; Bipolar 1 disorder F31.9 ; High risk medication use Z79.899 ; BMI 40.0-44.9, adult Z68.41 and Coronary artery disease involving coronary bypass graft of platinum heart without angina pectoris I25.[address] [place] [address] [id number] Jul, Chronic obstructive pulmonary disease with acute exacerbation J44.1 and Acute nasopharyngitis J00 [address] [place] [address] [id number] Jul, Anxiety F41.9 ; Mixed hyperlipidemia E78.2 and Bipolar 1 disorder F31.9 [facility] [address] [id number] [place] [address] Jun Bipolar 1 disorder F31.9 [facility] [address] [id number] [place] [address] Jun [address] [place] [address] [id number] Jun, Anxiety F41.9 ; Elevated blood sugar R73.9 ; Mixed hyperlipidemia E78.2 ; COPD mixed type J44.9 ; Essential hypertension I10 ; Bipolar 1 disorder F31.9 ; Coronary artery disease involving coronary bypass graft of platinum heart without angina pectoris I25.810 ; High risk medication use Z79.899 ; Controlled substance agreement signed Z79.899 ; Elevated fasting glucose R73.01 ; Encounter for immunization Z23 and BMI 40.0-44.9, adult Z68.41 [place] [id number] [id number] Jun, Elevated blood sugar R73.9 [address] [place] [address] [id number] Jun, [place] [id number] [place] [address] [id number] Jun, Bipolar 1 disorder F31.9 ; Obesity (BMI 30-39.9) E66.9 ; Coronary artery disease involving coronary bypass graft of platinum heart without angina pectoris I25.810 and Essential hypertension I10 [id number] [id number] Jun, Coronary artery disease involving coronary bypass graft of platinum heart without angina pectoris I25.810 ; Bipolar 1 disorder F31.9 ; Anxiety F41.9 ; Essential hypertension I10 ; COPD mixed type J44.9 and Mixed hyperlipidemia E78.2 [facility] [address] [place] [id number] [id number] May, Severe single current episode of major depressive disorder, 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.2 ; Bipolar 1 disorder F31.9 ; Anxiety F41.9 ; PTSD (post -traumatic stress disorder) F43.10 ; Coronary artery disease involving coronary bypass graft of platinum heart without angina pectoris I25.810 ; Sleep apnea in adult G47.30 ; Essential hypertension I10 ; High risk medication use Z79.899 ; Obesity (BMI 30-39.9) E66.9 ; Encounter for therapeutic drug level monitoring Z51.81 and COPD mixed type J44.9 [facility] [address] [place] [id number] [id number] May, Severe single current episode of major depressive disorder, 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.2 ; Bipolar 1 disorder F31.9 ; Anxiety F41.9 ; PTSD (post -traumatic stress disorder) F43.10 ; Mixed hyperlipidemia E78.2 ; Coronary artery disease involving coronary bypass graft of platinum heart without angina pectoris I25.810 ; Sleep apnea in adult G47.30 ; Essential hypertension I10 ; High risk medication use Z79.899 ; Controlled substance agreement signed Z79.899 ; Obesity (BMI 30-39.9) E66.9 ; Tobacco abuse Z72.0 ; Tobacco abuse counseling Z71.6 and COPD mixed type J44.9 [facility] [address] [facility] [id number][place] [id number] May, [facility] [address] [address]- 2033 Dec, [facility] [address] [address] 1167 Dec, [facility] [address] [place] [id number] [place] [address] [id number]- 3661 May, [facility] [place] [facility] [address] [id number] [place] [address]- 4751 May, [facility] [address] [id number] [place] [id number] Dec, [facility] [place] [facility] [address] [id number] [place] [address]- 7566 Dec, [facility] [address] [facility] [id number] [place] [id number] Dec, [facility] [place] [facility] [address] [id number] [place] [address]- 8716 Dec, [facility] [place] [facility] [address] [id number] [place] [address]- 1846 Dec, [facility] [place] [facility] [address] [facility] [id number] [place] [address]- 0443 Dec, [facility] [place] [facility] [address] [facility] [id number] [place] [address]- 5852 24 Nov, 2013 [facility] [address] [id number] [place] [address] Nov, [facility] [address] [id number] [place] 719615[address] Nov, [facility] [address] [facility] [id number] [place] [id number] Nov, [facility] [place] [facility] [address] [facility] [id number], [place] [address]- 9426 Nov, [facility] [place] [facility] [address] [facility] [id number][place] [address]- 2664 17 Nov, 2013 [facility] [place] [facility] [address] [facility] [id number] [address]- 4180 17 Nov, 2013 [facility] [place] [facility] [address] [facility] [id number] [place] [address]- 9751 15 Nov, 2013 [facility] [place] [facility] [address] [facility] [id number] [place] [address]- 8750 14 Nov, 2013 [facility] [place] [facility] [address] [facility] [id number][place] [address]- 2546 Nov, [facility] [address] [facility] [id number] [place] [id number] Nov, [facility] [address] [facility] [id number][place] [id number] Oct, [facility] [place] [facility] [address] [facility] [id number], [place] [address]- 2546 Oct, [facility] [address] [facility] [id number][place] [id number] Oct, [facility] [place] [facility] [address] [facility] [id number][place] [address]- 2546 Oct, [facility] [place] [facility] [address] [place] [id number] [address]- 2546 Oct, [facility] [id number][place] [id number] Sep, [facility] [place] [facility] [address], [place] [address]- 7977 Sep, [facility] [address] [place] [id number][place] [id number] Sep, [facility] [place] [facility] [address], [place] [address]- 3836 Sep, [facility] [place] [facility] [address], [place] [address]- 4185 Sep, [facility] [place] [facility] [address] [facility] [id number][place] [address]- 4466 Sep, [facility] [place] [facility] [address] [facility] [id number][place] [address]- 1256 Aug, [facility] [address] [facility] [id number], [place] 979862475 Aug, [facility] [place] [facility] [address] [place] [id number] [address]- 2546 Aug, [facility] [address] [place] [id number], [place] 133184800 Jul, [facility] [place] [facility] [address] [id number] [place] [address]- 4770 Jul, [facility] [address] [id number][place] 6473[address] Jul, [facility] [address] [facility] [id number], [place] [address]- 9185 Jul, [facility] [place] [facility] [address] [facility] [id number] [place] [address]- 4294 May, [facility] [place] [facility] [address] [facility] [id number] [place] [address]- 4450 Apr, [facility] [place] [facility] [address] [facility] [id number] [place] [address]- 0300 Apr, [facility] [place] [facility] [address] [facility] [id number] [place] [address]- 2235 Mar, [facility] [address] [id number], [place] [id number] Feb, [facility] [address] [id number], [place] [id number] Feb, [facility] [address] [id number], [place] 370[address] Feb, [facility] [address] [facility] [id number], [place] [address]- 7246 Feb, [facility] [place] [facility] [address] [facility] [id number][place] [address]- 2546 January, [facility] [place] [facility] [address] [facility] [id number][place] [address]- 2546 January, [facility] [address] [id number] [place] [address] Dec, [facility] [address] [id number], [place] 829429745 Dec, [facility] [address] [id number], [place] 595285869 Dec, [facility] [address] [id number], [place] 712829549 Dec, [facility] [address] [id number] [place] 236[place] Dec, [facility] [address] [id number] [place] 316[address]750 Dec, [facility] [address] [id number] [place] [address]- 2546 Dec, [facility] [address] [facility] [id number] [place] [address]- 2546 Dec, [facility] [address] [id number] [place] 399230217 Nov, [facility] [address] [id number] [place] 0277374[address] Nov, [facility] [address] [id number] [place] 344467[address] Nov, [facility] [address] [place] [id number] [address]- 2546 Oct, [facility] [address] [facility] [id number], [place] [address]- 2546 Oct, [facility] [address] [place] [id number], [place] [address]- 7756 Sep, [facility] [address] [facility] [id number][place] [address]- 4216 Aug, [facility] [address] [place] [id number] [address]- 7436 Aug, [facility] [address] [facility] [id number], [place] [address]- 2546 Aug, [facility] [place] [facility] [address] [facility] [id number], [place] [address]- 2546 Aug, [facility] [address] [facility] [id number] [place] 157466[place] Aug, [facility] [address] [facility] [id number][place] [address]- 2546 Aug, [facility] [place] [facility] [address] [facility] [id number][place] [address]- 5286 Jul, [facility] [place] [facility] [address] [facility] [id number] [place] [address]- 5746 Jul, [facility] [place] [facility] [address] [facility] [id number][place] [address]- 8620 Jul, [facility] [place] [facility] [address] [facility] [id number] [place] [address]- 6327 Jul, [facility] [address] [id number][place] 260097697 Jun, [facility] [address] [id number] [place] 85018[address] Jun, [facility] [place] [facility] [address] [facility] [id number], [place] [address]- 7832 Jun, [facility] [address] [place] [address] [id number], [place] 953133196 Apr, [facility] [place] [facility] [address] [place] [address] [id number], [place] [address]- 9716 Apr, [facility] [place] [facility] [address] [facility] [id number][place] [address]- 9742 Mar, [facility] [address] [facility] [id number], [place] 527752376 Feb, [facility] [address] [facility] [id number], [place] 191378143 Feb, [facility] [place] [facility] [address] [facility] [id number], [place] [address]- 5905 Feb, [facility] [address] [facility] [id number], [place] 382406502 Feb, [facility] [place] [facility] [address] [facility] [id number], [place] [address]- 3212 Feb, [facility] [place] [facility] [address] [facility] [id number], [place] [address]- 9464 Feb, [facility] [place] [facility] [address]005[address]100[place], [place] [address]- 9966 Feb, [facility] [address] [facility] [id number], [place] [address]- 2996 Feb, [facility] [address] [id number] [place] 4248[address] January, [facility] [address] [id number] [place] 287222508 Dec, [facility] [address] [facility] [id number] [place] [address] 08699 2543 Dec, [facility] [address] [facility] [id number][place] [address]- 8077 Dec, [facility] [address] [id number] [place] 866154285 Dec, [facility] [address] [facility] [id number], [place] [address]- 1446 Dec, [facility] [address] [id number] [place] 054822475 Dec, [facility] [address] [id number] [place] 535959763 Nov, [facility] [address] [id number] [place] 729583289 Nov, [facility] [address] [id number] [place] [id number] Nov, [facility] [address] [id number] [place] 011165322 Nov, [facility] [address], [place] [address]- 2546 Oct, [facility] [address] [id number] [place] 091754082 Oct, [facility] [address] [id number] [place] 690529273 Oct, [facility] [address] [id number] [place] 151209548 Oct, [facility] [address] [id number] [place] 957315293 Oct, [facility] [address] [facility] [id number] [place] 797285789 Sep, [facility] [address] [id number] [place] 9477949[address] Sep, [facility] [address] [id number] [place] [address] Sep, [facility] [address] [facility] [id number] [place] [address] Sep, [facility] [address] [id number] [place] [address] Sep, [facility] [address] [facility] [id number] [place] [address], [place] [address] Sep, [facility] [address] [facility] [id number] [place] [address] Aug, [facility] [address] [place] [place] [id number] [place] [address] Aug, [facility] [address] [facility] [id number] [place] [address] Aug, [facility] [address] [facility] [id number] [place] [address] Aug, [facility] [address] [facility] [id number] [place] [address] Aug, [facility] [address] [facility] [id number] [place] [address] Aug, [facility] [address] [facility] [id number] [address] Aug, [facility] [place] [facility] [address] [facility] [id number] [place] [address] Aug, [facility] [address] [facility] [id number] [place] [address] Jun, [facility] [address] [facility] [id number] [place] [address] Jun, [facility] [place] [facility] [address] [id number] [place] [address] 19 Jun, 2011 [facility] [place] [facility] [address] [id number] [place] [address] 19 Jun, 2011 [facility] [place] [facility] [address] [id number] [place] [address] 14 Jun, 2011 [facility] [place] [facility] [address] [id number] [place] [address] 13 Jun, 2011 [facility] [place] [facility] [address] [id number] [place] [address] 12 Jun, 2011 [facility] [place] [facility] [address] [id number] [place] [address] 12 Jun, 2011 [facility] [place] [facility] [address] [id number] [place] [address] 12 Jun, 2011 [facility] [place] [facility] [address] [id number] [place] [address] 14 May, 2011 [facility] [place] [facility] [address] [id number] [place] [address] Apr, [facility] [place] [facility] [address] [id number] [place] [address] 16 Feb, 2011 [facility] [place] [facility] [address] [id number] [place] [address] Dec, [facility] [place] [facility] [address] [id number] [address] Aug, [facility] [place] [facility] [address] [id number] [place] [address] Aug, [facility] [place] [facility] [address] [id number] [place] [address] 15 Aug, 2010 [facility] [place] [facility] [address] [id number] [place] [address] Aug, [facility] [place] [facility] [address] [id number] [address] Jul, [facility] [address] [facility] [id number][place] [address] Jun, [facility] [address] [facility] [id number][place] [address] Jun, IMMUNIZATIONS No Known Immunizations SOCIAL HISTORY Never Assessed REASON FOR VISIT BH f/u WB-MA PLAN OF CARE Activity Details Follow Up 4 Weeks, prn Reason: VITAL SIGNS Height 59 in 2018-03-15 Weight 230 lbs 2018-03-15 Heart Rate 92 bpm 2018-03-15 Respiratory Rate 20 2018-03-15 BMI 46.45 kg/m2 2018-03-15 Blood pressure systolic 134 mmHg 2018-03-15 Blood pressure diastolic 86 mmHg 2018-03-15 MEDICATIONS Medication Instructions Dosage Frequency Start Date End Date Duration Status Benzonatate 100 mg Orally Three times a day 1 capsule as needed 8h Jul, Active Zyrtec Allergy 10 MG Orally Once a day 1 tablet 24h Active Celexa 10 MG Orally Once a day 1 tablet 24h Feb, 30 day(s) Active Atorvastatin Calcium 40 mg Orally Once a day 1 tablet 24h 0 Active Losartan Potassium-HCTZ 50-12.5 MG TAKE ONE (1) TABLET BY MOUTH TWICE DAILY... Active PredniSONE Not-Taking Alprazolam 0.5 MG Orally Three times a day as needed for anxeity 1 tablet 30 days Active Ventolin HFA 108 (90 Base) MCG/ACT Inhalation every 4 hrs 2 puffs as needed 4h Active Spiriva Respimat 2.5 MCG/ACT Inhalation Once a day 1 puff 24h Active Singulair 10 MG Orally Once a day 1 tablet 24h Active Albuterol Sulfate (2.5 MG/3ML) 0.083% Inhalation Three times a day 3 ml 8h Active Trihexyphenidyl HCl 2 MG Orally Three times a day 0.5 tablet 8h January, Active Symbicort 160-4.5 MCG/ACT Inhalation Twice a day 2 puffs 12h 0 Active [place] Carbonate 300 MG Orally daily 2 capsules in morning and one at night 24h Active ProAir HFA 108 (90 Base) MCG/ACT INHALE TWO PUFFS EVERY FOUR HOURS NEEDED. Active Aspir-81 81 MG Orally Once a day 1 tablet 24h Active Trazodone HCl 100 MG Orally at night as needed for sleep 0.5 -1 tablet Active RESULTS No Results PROCEDURES No [...] Coronary atherosclerosis of unspecified type of vessel, platinum or graft Medical History Coronary atherosclerosis of unspecified type of vessel, platinum or graft Surgical History section x4 Surgical History CABG x3 Surgical History Left arm-Plate and screws placed Hospitalization History Surgery(s)/Childbirth(s) only
--- OUTSIDE RECORDS SUMMARY | 2019-02-02 13:55 | XMS REPORT ---
Author Author ЕКАТЕРИНА MTZ Organization [facility] Address [address] [place] [address] Care Team Providers Care Bead Inspector Name Role Phone ЕКАТЕРИНА MTZ Unavailable PROBLEMS Type Condition ICD9-CM Code KLL24-KN Code Onset Dates Condition Status SNOMED Code Problem Chronic obstructive pulmonary disease with acute exacerbation J44.1 Active 233588398 Problem MESERET (generalized anxiety disorder) F41.1 Active 17921550 Problem Panic disorder F41.0 Active 001634160 Problem Morbid (severe) obesity due to excess calories E66.01 Active 91761426731399 Problem Body mass index (BMI) of 45.0-49.9 in adult Z68.42 Active 252910350 Problem Coronary artery disease involving [place] coronary artery of [place] heart without angina pectoris I25.10 Active 0794232736012 Problem Mood disorder F39 Active 25383189 Problem Bipolar disorder, in partial remission, most recent episode depressed F31.75 Active 37610001 Problem Claudication I73.9 Active 395872058 Problem Mixed hyperlipidemia E78.2 Active 945707348 Problem PTSD (post-traumatic stress disorder) F43.10 Active 28446535 Problem Sleep apnea in adult G47.30 Active 10584684 Problem COPD mixed type J44.9 Active 49685215 Problem Obesity (BMI 30-39.9) E66.9 Active 956655344 Problem Coronary artery disease involving coronary bypass graft of [place] heart without angina pectoris I25.810 Active 431926279 Problem Bipolar 1 disorder F31.9 Active 969970856 Problem Essential hypertension I10 Active 23587126 ALLERGIES No Information ENCOUNTERS Encounter Location Date Diagnosis [facility] [address] [id number], [place] [address] May, [facility] [address] [id number], [place] [address] May, [address], [place] [address] Apr, Bipolar disorder, in partial remission, most recent episode depressed F31.75 ; MESEERT (generalized anxiety disorder) F41.1 ; Panic disorder F41.0 and BMI 45.0-49.9, adult Z68.42 [facility] [id number] [place] [id number] Apr, [address] [id number] [place] [address]55- 4347 Apr, Bipolar 1 disorder, depressed F31.9 [place] [id number] [place] [address] 29593- 2194 Mar, Bipolar disorder, in partial remission, most recent episode depressed F31.75 ; MESERET (generalized anxiety disorder) F41.1 ; Panic disorder F41.0 and BMI 45.0-49.9, adult Z68.42 [facility] [address] [place] [address] [id number] Mar, High risk medication use Z79.899 and Mixed hyperlipidemia E78.2 [facility] [address] [place] [address] [id number] Mar, COPD mixed type J44.9 ; Essential hypertension I10 ; Sleep apnea in adult G47.30 ; Mixed hyperlipidemia E78.2 ; Morbid (severe) obesity due to excess calories E66.01 ; Body mass index (BMI) of 45.0-49.9 in adult Z68.42 ; Tobacco abuse Z72.0 ; Tobacco abuse counseling Z71.6 and BMI 45.0-49.9, adult Z68.42 [place] [address] [place] [address] 18143- 5046 Feb, Bipolar disorder, in partial remission, most recent episode depressed F31.75 ; MESERET (generalized anxiety disorder) F41.1 ; Panic disorder F41.0 and BMI 45.0-49.9, adult Z68.42 [place] [address] [place] [address] 66997- 4775 Feb, Bipolar 1 disorder, depressed F31.9 ; PTSD (post-traumatic stress disorder) F43.10 and Panic attacks F41.0 [place] [address] [place] [address] 62182- 8379 Feb, High risk medication use Z79.899 [place] [id number] [place] [address] 16410- 9924 January, High risk medication use Z79.899 ; Bipolar disorder, in partial remission, most recent episode depressed F31.75 ; MESERET (generalized anxiety disorder) F41.1 ; Panic disorder F41.0 and BMI 45.0-49.9, adult Z68.42 [place] [id number] [place] [address] 20622- 5167 January, Bipolar 1 disorder, depressed F31.9 ; PTSD (post-traumatic stress disorder) F43.10 and Panic attacks F41.0 [place] [id number] [place] [address] 27091- 8912 January, Bipolar 1 disorder, depressed F31.9 ; PTSD (post-traumatic stress disorder) F43.10 and Panic attacks F41.0 [place] [address] [place] [address] 91630- 6609 Dec, BMI 45.0-49.9, adult Z68.42 ; Bipolar disorder, in partial remission, most recent episode depressed F31.75 ; MESERET (generalized anxiety disorder) F41.1 and Panic disorder F41.0 [place] [address] [place] [address] 65029- 8243 Dec, Bipolar 1 disorder, depressed F31.9 ; PTSD (post-traumatic stress disorder) F43.10 and Panic attacks F41.0 [place] [address] [place] [address] 40237- 4112 Nov, Bipolar disorder, in partial remission, most recent episode depressed F31.75 ; MESERET (generalized anxiety disorder) F41.1 and Panic disorder F41.0 [place] [address], [place] [address] Nov, [facility] [id number] [place] [address] 53635- 1233 Nov, [address] [place], [place] [address] 27 Oct, 2017 BMI 45.0-49.9, adult Z68.42 ; Bipolar disorder, in partial remission, most recent episode depressed F31.75 ; MESERET (generalized anxiety disorder) F41.1 and Panic disorder F41.[address] [id number] [id number] 23 Oct, 2017 BMI 45.0-49.9, adult Z68.42 ; Coronary artery disease involving [place] coronary artery of [place] heart without angina pectoris I25.10 ; Hx of CABG Z95.1 ; Dyspnea on exertion R06.09 ; Essential hypertension I10 ; Mixed hyperlipidemia E78.2 ; Claudication I73.9 and Tobacco use Z72.0 [facility] [id number] [id number] 15 Oct, 2017 BMI 45.0-49.9, adult Z68.42 ; Bipolar 1 disorder, depressed F31.9 and Abscess L02.91 [address]005[address], [place] [address] 14 Oct, 2017 Bipolar 1 disorder, depressed F31.9 ; PTSD (post-traumatic stress disorder) F43.10 and Panic attacks F41.0 [place] [address], [place] [address]- 8[address] Sep, BMI 40.0-44.9, adult Z68.41 ; Mood disorder F39 ; MESERET ( generalized anxiety disorder) F41.1 and Panic disorder F41.0 [place]005[address], [place] [address] Sep, BMI 40.0-44.9, adult Z68.41 [place] [address] [place] [address] 82539- 9453 Sep, Bipolar 1 disorder, depressed F31.9 ; PTSD (post-traumatic stress disorder) F43.10 and Panic attacks F41.0 [place] [id number] [place] [address] 86911- 9822 Aug, BMI 40.0-44.9, adult Z68.41 ; Mood disorder F39 ; MESERET ( generalized anxiety disorder) F41.1 and Panic disorder F41.0 [place] [address] [address] Aug, Bipolar 1 disorder, depressed F31.9 ; PTSD (post-traumatic stress disorder) F43.10 and Panic attacks F41.0 [id number] [place] [id number] Aug, [address] [id number] Aug, COPD mixed type J44.9 [place] [id number] [place] [address] 45709- 9142 Aug, [place] [id number] [place] [address] 14913- 8773 Jul, PTSD (post-traumatic stress disorder) F43.10 ; Panic disorder F41.0 ; MESERET (generalized anxiety disorder) F41.1 ; Mood disorder F39 and BMI 40.0-44.9, adult Z68.41 [place] [id number] [place] [address] 77026- 2611 Jul, Bipolar 1 disorder, depressed F31.9 ; PTSD (post-traumatic stress disorder) F43.10 and Panic attacks F41.0 [id number] [place] [address] [id number] Jul, Bipolar 1 disorder, depressed F31.9 [id number] [place] [address] [id number] Jul, Anxiety F41.9 ; COPD mixed type J44.9 ; Essential hypertension I10 ; Bipolar 1 disorder F31.9 ; High risk medication use Z79.899 ; BMI 40.0-44.9, adult Z68.41 and Coronary artery disease involving coronary bypass graft of [place] heart without angina pectoris I25.810 [address] [id number] [place] [address] [id number] Jul, Chronic obstructive pulmonary disease with acute exacerbation J44.1 and Acute nasopharyngitis J[id number] [id number] Jul, Anxiety F41.9 ; Mixed hyperlipidemia E78.2 and Bipolar 1 disorder F31.9 [facility] [address] [id number] [place] [address] Jun Bipolar 1 disorder F31.9 [facility] [address] [id number] [place] [address] Jun [id number] [place] [address] [id number] Jun, Anxiety F41.9 ; Elevated blood sugar [...] immunization Z23 and BMI 40.0-44.9, adult Z68.41 [id number] [id number] Jun, Elevated blood sugar R73.9 [address] [id number] [place] [address] [id number] Jun, [id number] [address] Jun, Bipolar 1 disorder F31.9 ; Obesity (BMI 30-39.9) E66.9 ; Coronary artery disease involving coronary bypass graft of [place] heart without angina pectoris I25.810 and Essential hypertension I10 [address] [id number] 04 Oct, 2017 Coronary artery disease involving coronary bypass graft of [place] heart without angina pectoris I25.810 ; Bipolar 1 disorder F31.9 ; Anxiety F41.9 ; Essential hypertension I10 ; COPD mixed type J44.9 and Mixed hyperlipidemia E78.2 [id number] [address] May, Severe single current episode of major [...] monitoring Z51.81 and COPD mixed type J44.9 [id number] [address] May, Severe single current episode of major [...] counseling Z71.6 and COPD mixed type J44.9 [id number] [address] May, [facility] [address], [place] [address] 3[address] Dec, [facility] [id number] [place] [address] 80036396- 3787 Dec, [facility] [address] [address] May, [facility] [address] [id number] [place] [address] 04 May, 2014 [facility] [address] [id number] [place] [id number] Dec, [facility] [place] [facility] [address] [facility] [id number] [place] [address]- 6326 Dec, [facility] [address] [facility] [id number] [place] [id number] Dec, [facility] [place] [facility] [address] [facility] [id number] [place] [address]- 0404 Dec, [facility] [place] [facility] [address] [facility] [id number] [place] [address]- 5803 Dec, [facility] [place] [facility] [address] [facility] [id number] [place] [address]- 8704 Dec, [facility] [place] [facility] [address] [facility] [id number] [place] [address]- 1503 24 Nov, 2013 [facility] [address] [id number] [place] [id number] Nov, [facility] [address] [id number] [place] [id number] Nov, [facility] [address] [facility] [id number] [place] [id number] Nov, [facility] [place] [facility] [address] [facility] [id number], [place] [address]- 2497 17 Nov, 2013 [facility] [place] [facility] [address] [facility] [id number], [place] [address]- 2804 17 Nov, 2013 [facility] [place] [facility] [address] [facility] [id number], [place] [address]- 8173 17 Nov, 2013 [facility] [place] [facility] [address] [facility] [id number] [place] [address]- 4375 15 Nov, 2013 [facility] [place] [facility] [address] [facility] [id number] [place] [address]- 1522 14 Nov, 2013 [facility] [place] [facility] [address] [facility] [id number][place] [address]- 2784 Nov, [facility] [address] [facility] [id number] [place] [id number] Nov, [facility] [address] [facility] [id number] [place] [id number] Oct, [facility] [place] [facility] [address] [facility] [id number] [place] [address]- 2546 Oct, [facility] [address] [facility] [id number] [place] [id number] Oct, [facility] [place] [facility] [address] [facility] [id number] [place] [address]- 2546 Oct, [facility] [place] [facility] [id number] [address]- 2546 Oct, [facility] [address] [id number] [address] Sep, [facility] [place] [facility] [address], [place] [address]- 2546 Sep, [facility] [address] [id number] [address] Sep, [facility] [place] [facility] [address], [place] [address]- 2546 Sep, [facility] [place] [facility] [address], [place] [address]- 2546 Sep, [facility] [place] [facility] [address], [place] [address]- 2546 Sep, [facility] [place] [facility] [id number], [place] [address]- 2546 Aug, [facility] [address] [facility] [id number][place] [id number] Aug, [facility] [place] [facility] [id number], [place] [address]- 2546 Aug, [facility] [address] [id number] [address] Jul, [facility] [place] [facility] [address], [place] [address]- 6676 Jul, [facility] [address] [id number][place] [id number] Jul, [facility] [address] [facility] [id number], [place] [address]- 8739 Jul, [facility] [address], [place] [address]- 7995 May, [facility] [address] [facility] [id number], [place] [address]- 4844 Apr, [facility] [address], [place] [address]- 9288 Apr, [facility] [address], [place] [address]- 5706 Mar, [facility] [address] [id number][place] [address] Feb, [facility] [address] [id number][place] [id number] Feb, [facility] [address] [id number], [place] [address]2239 Feb, [facility] [address], [place] [address]- 7716 Feb, [facility] [id number], [place] [address] 2546 January, [facility] [address] [facility] [id number], [place] [address]- 2546 January, [facility] [address] [id number] [place] [id number] Dec, [facility] [address] [id number] [place] [id number] Dec, [facility] [address] [id number] [place] [address] Dec, [facility] [address] [id number][place] [address] Dec, [facility] [address] [id number] [id number] Dec, [facility] [address] [id number] [place] [address] Dec, [facility] [place] [facility] [address] [facility] [id number] [place] [address]- 2546 Dec, [facility] [place] [facility] [address] [facility] [id number] [place] [address]- 2546 Dec, [facility] [address] [id number] [place] [id number] Nov, [facility] [address] [id number] [place] [id number] Nov, [facility] [address] [facility] [id number] [place] [address] Nov, [facility] [place] [facility] [address] [facility] [id number], [place] [address]- 2546 Oct, [facility] [place] [facility] [id number], [place] [address]- 2546 Oct, [facility] [place] [facility] [address] [facility] [id number], [place] [address]- 4626 Sep, [facility] [place] [facility] [id number], [place] [address]- 3716 Aug, [facility] [place] [facility] [id number], [place] [address]- 8776 Aug, [facility] [place] [facility] [address] [facility] [id number], [place] [address]- 2546 Aug, [facility] [place] [facility] [address] [facility] [id number], [place] [address]- 4916 Aug, [facility] [address] [facility] [id number][place] [address] Aug, [facility] [place] [facility] [address] [facility] [id number], [place] [address]- 2546 Aug, [facility] [place] [facility] [address] [facility] [id number], [place] [address]- 1643 Jul, [facility] [place] [facility] [address] [facility] [id number] [place] [address]- 2850 Jul, [facility] [place] [facility] [address] [facility] [id number], [place] [address]- 9456 Jul, [facility] [place] [facility] [address] [facility] [id number], [place] [address]- 5579 Jul, [facility] [address] [id number] [place] [id number] Jun, [facility] [address] [id number] [place] [id number] Jun, [facility] [place] [facility] [address] [facility] [id number] [place] [address]- 8137 Jun, [facility] [address] [facility] [id number] [place] [id number] Apr, [facility] [place] [facility] [id number], [place] [address]- 4760 Apr, [facility] [place] [facility] [address] [facility] [id number], [place] [address]- 2265 Mar, [facility] [address] [facility] [id number], [place] 9[place]75[place] Feb, [facility] [address] [facility] [id number], [place] 935409522 Feb, [facility] [place] [facility] [address] [facility] [id number], [place] [address]- 9843 Feb, [facility] [address] [facility] [id number][place] [address] Feb, [facility] [place] [facility] [address] [facility] [id number], [place] [address]- 5163 Feb, [facility] [place] [facility] [address] [facility] [id number], [place] [address]- 4808 Feb, [facility] [place] [facility] [address] [facility] [id number], [place] [address]- 2438 Feb, [facility] [place] [facility] [address] [facility] [id number], [place] [address]- 2546 Feb, [facility] [address] [id number] [place] [id number] January, [facility] [address] [id number] [place] [id number] Dec, [facility] [address] [facility] [id number], [place] [address] 2549 Dec, [facility] [address] [facility] [id number], [place] [address]- 2546 Dec, [facility] [address] [id number] [place] [id number] Dec, [facility] [address] [facility] [id number], [place] [address] 2546 Dec, [facility] [address] [id number] [place] [id number] Dec, [facility] [address] [id number] [place] [id number] Nov, [facility] [address] [id number] [place] [id number] Nov, [facility] [address] [id number] [place] [address] Nov, [facility] [address] [id number] [place] [id number] Nov, [facility] [id number], [place] [address]- 2546 Oct, [facility] [address] [id number] [id number] Oct, [facility] [address] [id number] [place] [id number] Oct, [facility] [address] [id number] [id number] Oct, [facility] [address] [id number] [place] [id number] Oct, [facility] [address] [id number] [place] [address] Sep, [facility] [address] [id number], [place] 5002567[address] Sep, [facility] [address] [id number] [place] [address]- 7143 Sep, [facility] [address] [id number] [place] [address]- 0745 Sep, [facility] [address] [id number] [place] [address]- 4730 Sep, [facility] [address] [id number] [place] [address] Sep, [facility] [address] [id number] [place] [address] Aug, [facility] [address] [id number] [place] [address] Aug, [facility] [address] [id number], [place] [address] Aug, [facility] [address] [id number] [place] [address] Aug, [facility] [address] [id number], [place] [address] Aug, [facility] [address] [id number], [place] [address] Aug, [facility] [place] [facility] [address] [id number], [place] [address] Aug, [facility] [place] [facility] [address] [id number], [place] [address] Aug, [facility] [place] [facility] [address] [id number], [place] [address] Jun, [facility] [place] [facility] [address] [id number] [address] Jun, [facility] [place] [facility] [address] [id number], [place] [address] 19 Jun, 2011 [facility] [place] [facility] [address] [id number] [place] [address] 19 Jun, 2011 [facility] [place] [facility] [address] [id number] [place] [address] 14 Jun, 2011 [facility] [place] [facility] [address] [id number] [place] [address] 13 Jun, 2011 [facility] [place] [facility] [address] [id number] [place] [address] 12 Jun, 2011 [facility] [place] [facility] [address] [id number] [place] [address] 12 Jun, 2011 [facility] [place] [facility] [address] [id number] [place] [address] 12 Jun, 2011 [facility] [place] [facility] [address] [id number] [place] [address] 14 May, 2011 [facility] [place] [facility] [address] [id number] [place] [address] Apr, [facility] [place] [facility] [address] [id number] [place] [address] 16 Feb, 2011 [facility] [place] [facility] [address] [id number] [place] [address] 20 Dec, 2010 [facility] [place] [facility] [address] [id number], [place] [address] Aug, [facility] [place] [facility] [address] [id number] [place] [address] 28 Aug, 2010 [facility] [place] [facility] [address] [id number] [place] [address] 15 Aug, 2010 [facility] [place] [facility] [address] [id number] [place] [address] Aug, [facility] [place] [facility] [address] [id number] [place] [address] 05 Jul, 2010 [facility] [place] [facility] [address] [facility] [id number] [place] [address] Jun, [facility] [address] [facility] [id number], [place] [address] Jun, IMMUNIZATIONS No Known Immunizations SOCIAL HISTORY Never Assessed REASON FOR VISIT Lab (walk-in) Gur[facility] [employer] PLAN OF CARE VITAL SIGNS MEDICATIONS Unknown Medications RESULTS No Results PROCEDURES Procedure Date Ordered Result Body Site LAB NOT BILLED BY [facility] April 04, 2018 VENIPUNCT, ROUTINE* April 04, 2018 INSTRUCTIONS MEDICATIONS ADMINISTERED No Known Medications [...] type of vessel, [place] or graft Medical History Coronary atherosclerosis of unspecified type of vessel, [place] or graft Surgical History section x4 Surgical History CABG x3 Surgical History Left arm-Plate and screws placed Hospitalization History Surgery(s)/Childbirth(s) only
--- OUTSIDE RECORDS SUMMARY | 2019-02-02 13:56 | XMS REPORT ---
Author Author MAL SHARMA Organization [facility] Address [address] [place] [address] Care Team Providers Care Hop Worker Name Role Phone MAL SHARMA Unavailable PROBLEMS Type Condition ICD9-CM Code WPY05-ET Code Onset Dates Condition Status SNOMED Code Problem Chronic obstructive pulmonary disease with acute exacerbation J44.1 Active 991641920 Problem MESERET (generalized anxiety disorder) F41.1 Active 62142337 Problem Panic disorder F41.0 Active 533522674 Problem Morbid (severe) obesity due to excess calories E66.01 Active 15925849033572 Problem Body mass index (BMI) of 45.0-49.9 in adult Z68.42 Active 910714600 Problem Coronary artery disease involving [place] coronary artery of [place] heart without angina pectoris I25.10 Active 0613570705811 Problem Mood disorder F39 Active 50154786 Problem Bipolar disorder, in partial remission, most recent episode depressed F31.75 Active 96739711 Problem Claudication I73.9 Active 260178911 Problem Mixed hyperlipidemia E78.2 Active 806112319 Problem PTSD (post-traumatic stress disorder) F43.10 Active 91430310 Problem Sleep apnea in adult G47.30 Active 77696019 Problem COPD mixed type J44.9 Active 51881092 Problem Obesity (BMI 30-39.9) E66.9 Active 676609795 Problem Coronary artery disease involving coronary bypass graft of [place] heart without angina pectoris I25.810 Active 794729412 Problem Bipolar 1 disorder F31.9 Active 021668910 Problem Essential hypertension I10 Active 95455067 ALLERGIES No Information ENCOUNTERS Encounter Location Date Diagnosis [facility] [id number] [address] May, [facility] [address] [id number], [place] [address] May, [facility] [address], [place] [address] Apr, Bipolar disorder, in partial remission, most recent episode depressed F31.75 ; MESERET (generalized anxiety disorder) F41.1 ; Panic disorder F41.0 and BMI 45.0-49.9, adult Z68.42 [facility] [id number] [place] [address] [id number] Apr, [place] [id number] [place] [address]68- 7670 Apr, Bipolar 1 disorder, depressed F31.9 [place] [id number] [place] [address] 00775- 3988 Mar, Bipolar disorder, in partial remission, most recent episode depressed F31.75 ; MESERET (generalized anxiety disorder) F41.1 ; Panic disorder F41.0 and BMI 45.0-49.9, adult Z68.42 [facility] [id number] [place] [address] [id number] Mar, High risk medication use Z79.899 and Mixed hyperlipidemia E78.2 [facility] [id number] [place] [address] [id number] Mar, COPD mixed type J44.9 ; Essential hypertension I10 ; Sleep apnea in adult G47.30 ; Mixed hyperlipidemia E78.2 ; Morbid (severe) obesity due to excess calories E66.01 ; Body mass index (BMI) of 45.0-49.9 in adult Z68.42 ; Tobacco abuse Z72.0 ; Tobacco abuse counseling Z71.6 and BMI 45.0-49.9, adult Z68.42 [place] [address] [place] [address] 58541- 1132 Feb, Bipolar disorder, in partial remission, most recent episode depressed F31.75 ; MESERET (generalized anxiety disorder) F41.1 ; Panic disorder F41.0 and BMI 45.0-49.9, adult Z68.42 [place] [address] [place] [address] 21910- 8173 Feb, Bipolar 1 disorder, depressed F31.9 ; PTSD (post-traumatic stress disorder) F43.10 and Panic attacks F41.0 [place] [address] [place] [address] 00321- 4291 Feb, High risk medication use Z79.899 [place] [id number] [place] [address] 35781- 5117 January, High risk medication use Z79.899 ; Bipolar disorder, in partial remission, most recent episode depressed F31.75 ; MESERET (generalized anxiety disorder) F41.1 ; Panic disorder F41.0 and BMI 45.0-49.9, adult Z68.42 [place] [id number] [place] [address] 24716- 3470 January, Bipolar 1 disorder, depressed F31.9 ; PTSD (post-traumatic stress disorder) F43.10 and Panic attacks F41.0 [place] [id number] [place] [address] 96051- 2154 January, Bipolar 1 disorder, depressed F31.9 ; PTSD (post-traumatic stress disorder) F43.10 and Panic attacks F41.0 [place] [id number] [place] [address] 81500- 4411 Dec, BMI 45.0-49.9, adult Z68.42 ; Bipolar disorder, in partial remission, most recent episode depressed F31.75 ; MESERET (generalized anxiety disorder) F41.1 and Panic disorder F41.0 [place] [address] [place] [address] 68514- 7784 Dec, Bipolar 1 disorder, depressed F31.9 ; PTSD (post-traumatic stress disorder) F43.10 and Panic attacks F41.0 [place] [id number] [place] [address] 90972- 3436 Nov, Bipolar disorder, in partial remission, most recent episode depressed F31.75 ; MESERET (generalized anxiety disorder) F41.1 and Panic disorder F41.0 [place] [id number] [address]- 3929 Nov, [place] [id number] [place] [address] 77181- 8726 Nov, [place] [address] [place] [address] 95768- 3263 27 Oct, 2017 BMI 45.0-49.9, adult Z68.42 ; Bipolar disorder, in partial remission, most recent episode depressed F31.75 ; MESERET (generalized anxiety disorder) F41.1 and Panic disorder F41.[address] [id number] [id number] 23 Oct, 2017 BMI 45.0-49.9, adult Z68.42 ; Coronary artery disease involving [place] coronary artery of [place] heart without angina pectoris I25.10 ; Hx of CABG Z95.1 ; Dyspnea on exertion R06.09 ; Essential hypertension I10 ; Mixed hyperlipidemia E78.2 ; Claudication I73.9 and Tobacco use Z72.0 [facility] [id number] [place] [address] [id number] 15 Oct, 2017 BMI 45.0-49.9, adult Z68.42 ; Bipolar 1 disorder, depressed F31.9 and Abscess L02.91 [place] [id number] [place] [address] 52691- 8812 14 Oct, 2017 Bipolar 1 disorder, depressed F31.9 ; PTSD (post-traumatic stress disorder) F43.10 and Panic attacks F41.0 [place] [address] [place] [address] 27977- 3840 Sep, BMI 40.0-44.9, adult Z68.41 ; Mood disorder F39 ; MESERET ( generalized anxiety disorder) F41.1 and Panic disorder F41.0 [place] [address] [place] [address] 27092- 7919 Sep, BMI 40.0-44.9, adult Z68.41 [place] [id number] [place] [address] 02604- 9250 Sep, Bipolar 1 disorder, depressed F31.9 ; PTSD (post-traumatic stress disorder) F43.10 and Panic attacks F41.0 [place] [address] [address]- [address] Aug, BMI 40.0-44.9, adult Z68.41 ; Mood disorder F39 ; MESERET ( generalized anxiety disorder) F41.1 and Panic disorder F41.0 [place] [address] 31257- 8874 Aug, Bipolar 1 disorder, depressed F31.9 ; PTSD (post-traumatic stress disorder) F43.10 and Panic attacks F41.[address] [id number] Aug, [address] [id number] Aug, COPD mixed type J44.9 [place] [address] [address]- 0839 Aug, [place] [address] [address]- 1230 Jul, PTSD (post-traumatic stress disorder) F43.10 ; Panic disorder F41.0 ; MESERET (generalized anxiety disorder) F41.1 ; Mood disorder F39 and BMI 40.0-44.9, adult Z68.41 [place] [id number] [place] [address] 49449- 2681 Jul, Bipolar 1 disorder, depressed F31.9 ; PTSD (post-traumatic stress disorder) F43.10 and Panic attacks F41.0 [place] [id number] [place] [address] [id number] Jul, Bipolar 1 disorder, depressed F31.[address] [id number] Jul, Anxiety F41.9 ; COPD mixed type J44.9 ; Essential hypertension I10 ; Bipolar 1 disorder F31.9 ; High risk medication use Z79.899 ; BMI 40.0-44.9, adult Z68.41 and Coronary artery disease involving coronary bypass graft of [place] heart without angina pectoris I25.810 [facility] [id number] [place] [address] [id number] Jul, Chronic obstructive pulmonary disease with acute exacerbation J44.1 and Acute nasopharyngitis J00 [facility] [address] [id number] [address] Jul, Anxiety F41.9 ; Mixed hyperlipidemia E78.2 and Bipolar 1 disorder F31.9 [facility] [address] [id number] [place] [address] Jun Bipolar 1 disorder F31.9 [facility] [address] [id number] [place] [address] [address] [place] [address] [id number] [address] Jun, Anxiety F41.9 ; Elevated blood sugar R73.9 ; Mixed hyperlipidemia E78.2 ; COPD mixed type J44.9 ; Essential hypertension I10 ; Bipolar 1 disorder F31.9 ; Coronary artery disease involving coronary bypass graft of [place] heart without angina pectoris I25.810 ; High risk medication use Z79.899 ; Controlled substance agreement signed Z79.899 ; Elevated fasting glucose R73.01 ; Encounter for immunization Z23 and BMI 40.0-44.9, adult Z68.41 [facility] [address] [facility] [id number] [id number] Jun, Elevated blood sugar R73.9 [place] [id number] [id number] Jun, [address] [id number] [id number] Jun, Bipolar 1 disorder F31.9 ; Obesity (BMI 30-39.9) E66.9 ; Coronary artery disease involving coronary bypass graft of [place] heart without angina pectoris I25.810 and Essential hypertension I10 [facility] [address] [id number] [id number] Jun, Coronary artery disease involving coronary bypass graft of [place] heart without angina pectoris I25.810 ; Bipolar 1 disorder F31.9 ; Anxiety F41.9 ; Essential hypertension I10 ; COPD mixed type J44.9 and Mixed hyperlipidemia E78.[address] [place] [address] [id number] May, Severe single current episode of major depressive disorder, 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.2 ; Bipolar 1 disorder F31.9 ; Anxiety F41.9 ; PTSD (post -traumatic stress disorder) F43.10 ; Coronary artery disease involving coronary bypass graft of [place] heart without angina pectoris I25.810 ; Sleep apnea in adult G47.30 ; Essential hypertension I10 ; High risk medication use Z79.899 ; Obesity (BMI 30-39.9) E66.9 ; Encounter for therapeutic drug level monitoring Z51.81 and COPD mixed type J44.[address] [place] [address] [id number] May, Severe single current episode of major depressive disorder, 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.2 ; Bipolar 1 disorder F31.9 ; Anxiety F41.9 ; PTSD (post -traumatic stress disorder) F43.10 ; Mixed hyperlipidemia E78.2 ; Coronary artery disease involving coronary bypass graft of [place] heart without angina pectoris I25.810 ; Sleep apnea in adult G47.30 ; Essential hypertension I10 ; High risk medication use Z79.899 ; Controlled substance agreement signed Z79.899 ; Obesity (BMI 30-39.9) E66.9 ; Tobacco abuse Z72.0 ; Tobacco abuse counseling Z71.6 and COPD mixed type J44.9 [address] [id number] [id number] May, [facility] [id number] [place] [address] 28881- 5922 Dec, [facility] [id number] [place] [address] 87290- 7557 Dec, [facility] [id number] [place] [address] 30801- 8992 May, [facility] [id number] [place] [address] 71890- 2546 May, [facility] [address] [id number] [place] [id number] Dec, [facility] [address] [id number] [place] [address]- 6616 Dec, [facility] [address] [facility] [id number] [place] [id number] Dec, [facility] [place] [facility] [address] [id number] [place] [address]- 2196 Dec, [facility] [place] [facility] [address] [id number] [place] [address]- 7598 Dec, [facility] [place] [facility] [address] [id number] [place] [address]- 6688 Dec, [facility] [address] [facility] [id number] [place] [address]- 6559 Nov, [facility] [address] [id number] [place] [id number] Nov, [facility] [address] [id number] [place] [address] Nov, [facility] [address] [id number] [place] [address] Nov, [facility] [place] [facility] [address] [id number] [place] [address]- 8777 Nov, [facility] [place] [facility] [address] [facility] [id number] [place] [address]- 6762 Nov, [facility] [place] [facility] [address] [id number] [place] [address]- 4244 17 Nov, 2013 [facility] [place] [facility] [address] [id number] [place] [address]- 9707 15 Nov, 2013 [facility] [place] [facility] [address] [facility] [id number] [place] [address]- 6638 14 Nov, 2013 [facility] [place] [facility] [address] [id number] [place] [address]- 1850 12 Nov, 2013 [facility] [address] [facility] [id number][place] [address] Nov, [facility] [address] [facility] [id number][place] [id number] Oct, [facility] [place] [facility] [address] [facility] [id number], [place] [address]- 2546 Oct, [facility] [address] [facility] [id number][place] [id number] Oct, [facility] [place] [facility] [address] [facility] [id number], [place] [address]- 2546 Oct, [facility] [place] [facility] [address] [facility] [id number], [place] [address]- 2546 Oct, [facility] [address] [id number], [place] [address] Sep, [facility] [place] [facility] [address], [place] [address]- 5876 Sep, [facility] [address] [id number], [place] [id number] Sep, [facility] [place] [facility] [address], [place] [address]- 2676 Sep, [facility] [place] [facility] [address] [address]- 2856 Sep, [facility] [place] [facility] [id number], [place] [address]- 2786 Sep, [facility] [place] [facility] [address] [facility] [id number], [place] [address]- 2546 Aug, [facility] [address] [facility] [id number], [place] [address] Aug, [facility] [place] [facility] [address] [facility] [id number], [place] [address]- 2546 Aug, [facility] [address] [facility] [id number], [place] [address]220[address] Jul, [facility] [place] [facility] [id number], [place] [address]- 0816 Jul, [facility] [address] [id number][place] [id number] Jul, [facility] [address] [facility] [id number], [place] [address]- 3396 Jul, [facility] [id number], [place] [address]- 5344 May, [facility] [address] [facility] [id number], [place] [address]- 1388 Apr, [facility] [address] [facility] [id number], [place] [address]- 7132 Apr, [facility] [id number], [place] [address]- 4674 Mar, [facility] [address] [id number], [place] [address]757 Feb, [facility] [address] [id number], [place] [address]77[address] Feb, [facility] [address] [id number], [place] [address] Feb, [facility] [address], [place] [address]- 4583 Feb, [facility] [id number], [place] [address]- 6022 January, [facility] [address], [place] [address]- 2546 January, [facility] [address] [id number], [place] [address] Dec, [facility] [address] [id number] [place] Dec, [facility] [address] [id number] [place] 129[address] Dec, [facility] [address] [id number], [place] [address] Dec, [facility] [address] [id number], [place] [address] Dec, [facility] [address] [id number] [place] [address] Dec, [facility] [place] [facility] [address] [id number] [place] [address]- 2546 Dec, [facility] [place] [facility] [address] [id number] [place] [address]- 2546 Dec, [facility] [address] [id number] [place] [id number] Nov, [facility] [address] [id number] [place] 4513407[address] Nov, [facility] [address] [id number] [place] 488[address] Nov, [facility] [place] [facility] [address] [facility] [id number] [place] [address]- 2546 Oct, [facility] [place] [facility] [id number] [place] [address]- 2546 Oct, [facility] [place] [facility] [address] [facility] [id number], [place] [address]- 9586 Sep, [facility] [place] [facility] [address] [id number], [place] [address]- 5006 Aug, [facility] [place] [facility] [address] [facility] [id number], [place] [address]- 8686 Aug, [facility] [place] [facility] [id number], [place] [address]- 2546 Aug, [facility] [place] [facility] [address] [facility] [id number], [place] [address]- 0996 Aug, [facility] [address] [facility] [id number] [place] [id number] Aug, [facility] [place] [facility] [address] [facility] [id number] [place] [address]- 2546 Aug, [facility] [place] [facility] [address] [facility] [id number], [place] [address]- 2546 Jul, [facility] [place] [facility] [address] [facility] [id number], [place] [address]- 6107 Jul, [facility] [place] [facility] [address] [facility] [id number], [place] [address]- 1341 Jul, [facility] [place] [facility] [address] [facility] [id number], [place] [address]- 7581 Jul, [facility] [address] [facility] [id number] [place] [id number] Jun, [facility] [address] [facility] [id number] [place] 089318246 Jun, [facility] [place] [facility] [address] [facility] [id number], [place] [address]- 8078 Jun, [facility] [address] [id number], [place] 1248[address]357 Apr, [facility] [place] [facility] [address], [place] [address]- 1831 Apr, [facility] [place] [facility] [address] [facility] [id number], [place] [address]- 7302 Mar, [facility] [address] [facility] [id number][place] [id number] Feb, [facility] [address] [id number], [place] [id number] Feb, [facility] [place] [facility] [address], [place] [address]- 7627 Feb, [facility] [address] [facility] [id number], [place] [id number] Feb, [facility] [place] [facility] [address] [facility] [id number], [place] [address]- 6168 Feb, [facility] [place] [facility] [address] [facility] [id number], [place] [address]- 3948 Feb, [facility] [place] [facility] [address] [facility] [id number], [place] [address]- 2329 Feb, [facility] [place] [facility] [address] [facility] [id number], [place] [address]- 2546 Feb, [facility] [address] [id number] [place] [id number] January, [facility] [address] [id number] [place] 4207[address] Dec, [facility] [address] [facility] [id number], [place] [address]- 2542 Dec, [facility] [address] [facility] [id number], [place] [address]- 2546 Dec, [facility] [address] [id number] [place] [address] Dec, [facility] [address] [facility] [id number][place] [address]- 2546 Dec, [facility] [address] [id number] [place] [id number] Dec, [facility] [address] [id number] [place] 3294850[address] Nov, [facility] [address] [id number] [place] [id number] Nov, [facility] [address] [id number] [place] [id number] Nov, [facility] [address] [id number] [place] [address]621495[address] Nov, [facility] [address] [id number], [place] [address]- 2546 Oct, [facility] [address] [id number] [place] [id number] Oct, [facility] [address] [id number] [place] 047300940 Oct, [facility] [address] [id number] [place] 885782843 Oct, [facility] [address] [id number] [place] [address]892749[address] Oct, [facility] [address] [id number] [place] [id number] Sep, [facility] [address] [id number] [place] 926885473 Sep, [facility] [address] [id number] [place] [address]- 9007 Sep, [facility] [address] [id number] [place] [address]- 2602 Sep, [facility] [address] [id number] [place] [address]- 7777 Sep, [facility] [address] [id number] [place] [address]- 1290 Sep, [facility] [address] [id number] [place] [address]- 0956 Aug, [facility] [address] [id number] [place] [address] Aug, [facility] [address] [id number] [place] [address] Aug, [facility] [address] [id number] [place] [address] Aug, [facility] [address] [id number] [place] [address] Aug, [facility] [address] [id number] [place] [address] Aug, [facility] [address] [id number] [place] [address] Aug, [facility] [address] [id number] [place] [address] Aug, [facility] [place] [facility] [address] [id number] [place] [address] Jun, [facility] [place] [facility] [address] [id number] [place] [address] Jun, [facility] [address] [id number] [place] [address] Jun, [facility] [place] [facility] [address] [id number] [place] [address] 19 Jun, 2011 [facility] [place] [facility] [address] [id number] [place] [address] 14 Jun, 2011 [facility] [place] [facility] [address] [id number] [place] [address] 13 Jun, 2011 [facility] [place] [facility] [address] [id number] [place] [address] 12 Jun, 2011 [facility] [place] [facility] [address] [id number] [place] [address] 12 Jun, 2011 [facility] [place] [facility] [address] [id number] [place] [address] 12 Jun, 2011 [facility] [place] [facility] [address] [id number] [place] [address] 14 May, 2011 [facility] [place] [facility] [address] [id number] [place] [address] 10 Apr, 2011 [facility] [place] [facility] [address] [id number] [place] [address] 16 Feb, 2011 [facility] [place] [facility] [address] [id number] [place] [address] 20 Dec, 2010 [facility] [place] [facility] [address] [id number] [place] [address] 28 Aug, 2010 [facility] [place] [facility] [address] [id number] [address] 28 Aug, 2010 [facility] [place] [facility] [address] [id number] [place] [address] 15 Aug, 2010 [facility] [place] [facility] [address] [id number] [place] [address] Aug, [facility] [place] [facility] [address] [id number] [place] [address] 05 Jul, 2010 [facility] [place] [facility] [address] [facility] [id number] [place] [address] Jun, [facility] [address] [facility] [id number] [place] [address] Jun, IMMUNIZATIONS No Known Immunizations SOCIAL HISTORY Never Assessed REASON FOR VISIT f/u PLAN OF CARE Activity Details Follow Up Next available Reason: VITAL SIGNS MEDICATIONS Unknown Medications RESULTS No Results PROCEDURES Procedure Date Ordered Result Body Site Psychotherapy, patient &/family, 30 minutes, established patient March 14, 2018 INSTRUCTIONS MEDICATIONS ADMINISTERED No Known Medications [...] Coronary atherosclerosis of unspecified type of vessel, [place] or graft Medical History Coronary atherosclerosis of unspecified type of vessel, [place] or graft Surgical History section x4 Surgical History CABG x3 Surgical History Left arm-Plate and screws placed Hospitalization History Surgery(s)/Childbirth(s) only
--- OUTSIDE RECORDS SUMMARY | 2019-02-02 13:56 | XMS REPORT ---
Author Author DEANA KEVON [facility] Address [address] [place] [address] Care Team Providers Care Dining Room Busser Name Role Phone ANNIMARILYN KEVON Unavailable PROBLEMS Type Condition ICD9-CM Code YUS81-SK Code Onset Dates Condition Status SNOMED Code Problem Chronic obstructive pulmonary disease with acute exacerbation J44.1 Active 260801652 Problem MESERET (generalized anxiety disorder) F41.1 Active 03596022 Problem Panic disorder F41.0 Active 149842975 Problem Morbid (severe) obesity due to excess calories E66.01 Active 84402494846475 Problem Body mass index (BMI) of 45.0-49.9 in adult Z68.42 Active 203539362 Problem Coronary artery disease involving koi coronary artery of koi heart without angina pectoris I25.10 Active 2392362808152 Problem Mood disorder F39 Active 56895703 Problem Bipolar disorder, in partial remission, most recent episode depressed F31.75 Active 33332688 Problem Claudication I73.9 Active 608200369 Problem Mixed hyperlipidemia E78.2 Active 706999178 Problem PTSD (post-traumatic stress disorder) F43.10 Active 77124645 Problem Sleep apnea in adult G47.30 Active 86623505 Problem COPD mixed type J44.9 Active 56139793 Problem Obesity (BMI 30-39.9) E66.9 Active 637198406 Problem Coronary artery disease involving coronary bypass graft of koi heart without angina pectoris I25.810 Active 664513121 Problem Bipolar 1 disorder F31.9 Active 844149572 Problem Essential hypertension I10 Active 34220133 ALLERGIES No Information ENCOUNTERS Encounter Location Date Diagnosis [facility] [address] [facility] [id number], [place] [address] May, [facility] [address] [facility] [id number], [place] [address] May, [facility] [address]00565[address], [place] [address] Apr, Bipolar disorder, in partial remission, most recent episode depressed F31.75 ; MESERET (generalized anxiety disorder) F41.1 ; Panic disorder F41.0 and BMI 45.0-49.9, adult Z68.42 [facility] [id number] [id number] Apr, [place] [id number] [address]47- 2601 Apr, Bipolar 1 disorder, depressed F31.9 [place] [address] [place] [address] 87830- 0709 Mar, Bipolar disorder, in partial remission, most recent episode depressed F31.75 ; MESERET (generalized anxiety disorder) F41.1 ; Panic disorder F41.0 and BMI 45.0-49.9, adult Z68.42 [facility] [id number] [place] [id number] Mar, High risk medication use Z79.899 and Mixed hyperlipidemia E78.2 [facility] [address] [place] [id number] Mar, COPD mixed type J44.9 ; Essential hypertension I10 ; Sleep apnea in adult G47.30 ; Mixed hyperlipidemia E78.2 ; Morbid (severe) obesity due to excess calories E66.01 ; Body mass index (BMI) of 45.0-49.9 in adult Z68.42 ; Tobacco abuse Z72.0 ; Tobacco abuse counseling Z71.6 and BMI 45.0-49.9, adult Z68.42 [place] [address]65[address], [place] [address] Feb, Bipolar disorder, in partial remission, most recent episode depressed F31.75 ; MESERET (generalized anxiety disorder) F41.1 ; Panic disorder F41.0 and BMI 45.0-49.9, adult Z68.42 [place] [address]65[address], [place] [address] Feb, Bipolar 1 disorder, depressed F31.9 ; PTSD (post-traumatic stress disorder) F43.10 and Panic attacks F41.0 [place] [address] [place] [address]005- 3696 Feb, High risk medication use Z79.899 [place] [id number] [place] [address]87- 7165 January, High risk medication use Z79.899 ; Bipolar disorder, in partial remission, most recent episode depressed F31.75 ; MESERET (generalized anxiety disorder) F41.1 ; Panic disorder F41.0 and BMI 45.0-49.9, adult Z68.42 [place] [id number] [place] [address] 62658- 5914 January, Bipolar 1 disorder, depressed F31.9 ; PTSD (post-traumatic stress disorder) F43.10 and Panic attacks F41.0 [place] [id number] [place] [address]- 9151 January, Bipolar 1 disorder, depressed F31.9 ; PTSD (post-traumatic stress disorder) F43.10 and Panic attacks F41.0 [place] [id number] [place] [address] 05086- 4233 Dec, BMI 45.0-49.9, adult Z68.42 ; Bipolar disorder, in partial remission, most recent episode depressed F31.75 ; MESERET (generalized anxiety disorder) F41.1 and Panic disorder F41.0 [place] [address] [place] [address]58- 7998 Dec, Bipolar 1 disorder, depressed F31.9 ; PTSD (post-traumatic stress disorder) F43.10 and Panic attacks F41.0 [place] [id number] [place] [address] 62931- 7522 Nov, Bipolar disorder, in partial remission, most recent episode depressed F31.75 ; MESERET (generalized anxiety disorder) F41.1 and Panic disorder F41.0 [place] [id number] [place] [address] 91677- 3434 Nov, [place] [address]00565[address], [place] [address] Nov, [place] [address] [place] [address] 64705- 0082 Oct, BMI 45.0-49.9, adult Z68.42 ; Bipolar disorder, in partial remission, most recent episode depressed F31.75 ; MESERET (generalized anxiety disorder) F41.1 and Panic disorder F41.[address] [id number] [id number] 23 Oct, 2017 BMI 45.0-49.9, adult Z68.42 ; Coronary artery disease involving koi coronary artery of koi heart without angina pectoris I25.10 ; Hx of CABG Z95.1 ; Dyspnea on exertion R06.09 ; Essential hypertension I10 ; Mixed hyperlipidemia E78.2 ; Claudication I73.9 and Tobacco use Z72.0 [facility] [id number] [id number] 15 Oct, 2017 BMI 45.0-49.9, adult Z68.42 ; Bipolar 1 disorder, depressed F31.9 and Abscess L02.[address] [place] [address] 96365- 4740 14 Oct, 2017 Bipolar 1 disorder, depressed F31.9 ; PTSD (post-traumatic stress disorder) F43.10 and Panic attacks F41.0 [place] [address] [id number], [place] [address] Sep, BMI 40.0-44.9, adult Z68.41 ; Mood disorder F39 ; MESERET ( generalized anxiety disorder) F41.1 and Panic disorder F41.0 [place] [address] [place] [address] 85115- 0597 Sep, BMI 40.0-44.9, adult Z68.41 [place] [address] [place] [address] 31074- 6688 Sep, Bipolar 1 disorder, depressed F31.9 ; PTSD (post-traumatic stress disorder) F43.10 and Panic attacks F41.0 [place] [address] [address] Aug, BMI 40.0-44.9, adult Z68.41 ; Mood disorder F39 ; MESERET ( generalized anxiety disorder) F41.1 and Panic disorder F41.0 [place] [address] [address]28- 7379 Aug, Bipolar 1 disorder, depressed F31.9 ; PTSD (post-traumatic stress disorder) F43.10 and Panic attacks F41.0 [place] [id number] [place] [id number] Aug, [address] [id number] Aug, COPD mixed type J44.9 [place] [address] [address] Aug, [place] [id number] [place] [address] 12228- 2843 Jul, PTSD (post-traumatic stress disorder) F43.10 ; Panic disorder F41.0 ; MESERET (generalized anxiety disorder) F41.1 ; Mood disorder F39 and BMI 40.0-44.9, adult Z68.41 [place] [id number] [place] [address] 40686- 7029 Jul, Bipolar 1 disorder, depressed F31.9 ; PTSD (post-traumatic stress disorder) F43.10 and Panic attacks F41.0 [address] [place] [address] [id number] Jul, Bipolar 1 disorder, depressed F31.[address] [id number] Jul, Anxiety F41.9 ; COPD mixed type J44.9 ; Essential hypertension I10 ; Bipolar 1 disorder F31.9 ; High risk medication use Z79.899 ; BMI 40.0-44.9, adult Z68.41 and Coronary artery disease involving coronary bypass graft of koi heart without angina pectoris I25.810 [place] [id number] [id number] Jul, Chronic obstructive pulmonary disease with acute exacerbation J44.1 and Acute nasopharyngitis J00 [facility] [address] [id number] [address] Jul, Anxiety F41.9 ; Mixed hyperlipidemia E78.2 and Bipolar 1 disorder F31.9 [facility] [address] [id number] [place] [address] Jun Bipolar 1 disorder F31.9 [facility] [address] [id number] [place] [address] Jun [place] [address] [place] [address] 845850[place]673[place] [address] Jun, Anxiety F41.9 ; Elevated blood sugar R73.9 ; Mixed hyperlipidemia E78.2 ; COPD mixed type J44.9 ; Essential hypertension I10 ; Bipolar 1 disorder F31.9 ; Coronary artery disease involving coronary bypass graft of koi heart without angina pectoris I25.810 ; High risk medication use Z79.899 ; Controlled substance agreement signed Z79.899 ; Elevated fasting glucose R73.01 ; Encounter for immunization Z23 and BMI 40.0-44.9, adult Z68.41 [facility] [address] [address] [id number] [address] Jun, Elevated blood sugar R73.9 [place] [address] [place] [address] [id number], [place] [id number] Jun, [place] [id number] [address] Jun, Bipolar 1 disorder F31.9 ; Obesity (BMI 30-39.9) E66.9 ; Coronary artery disease involving coronary bypass graft of koi heart without angina pectoris I25.810 and Essential hypertension I10 [facility] [address] [address] [id number] [address] Jun, Coronary artery disease involving coronary bypass graft of koi heart without angina pectoris I25.810 ; Bipolar 1 disorder F31.9 ; Anxiety F41.9 ; Essential hypertension I10 ; COPD mixed type J44.9 and Mixed hyperlipidemia E78.2 [address] [address] May, Severe single current episode of major depressive disorder, 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.2 ; Bipolar 1 disorder F31.9 ; Anxiety F41.9 ; PTSD (post -traumatic stress disorder) F43.10 ; Coronary artery disease involving coronary bypass graft of koi heart without angina pectoris I25.810 ; Sleep apnea in adult G47.30 ; Essential hypertension I10 ; High risk medication use Z79.899 ; Obesity (BMI 30-39.9) E66.9 ; Encounter for therapeutic drug level monitoring Z51.81 and COPD mixed type J44.9 [address] [id number] May, Severe single current episode of major depressive disorder, 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.2 ; Bipolar 1 disorder F31.9 ; Anxiety F41.9 ; PTSD (post -traumatic stress disorder) F43.10 ; Mixed hyperlipidemia E78.2 ; Coronary artery disease involving coronary bypass graft of koi heart without angina pectoris I25.810 ; Sleep apnea in adult G47.30 ; Essential hypertension I10 ; High risk medication use Z79.899 ; Controlled substance agreement signed Z79.899 ; Obesity (BMI 30-39.9) E66.9 ; Tobacco abuse Z72.0 ; Tobacco abuse counseling Z71.6 and COPD mixed type J44.9 [place] [id number] [id number] May, [facility] [address] [place] [address]2057- 2484 Dec, [facility] [id number] [place] [address] 81982- 6904 Dec, [facility] [id number] [place] [address] 78519- 4452 May, [facility] [id number] [place] [address] 10925- 9192 May, [facility] [address] [id number] [place] [id number] Dec, [facility] [address] [id number] [place] [address]- 1706 Dec, [facility] [address] [facility] [id number] [place] [id number] Dec, [facility] [place] [facility] [address] [facility] [id number] [place] [address]- 3[address] Dec, [facility] [place] [facility] [address] [id number] [place] [address]- 4953 Dec, [facility] [place] [facility] [address] [id number] [place] [address]- 0916 Dec, [facility] [address] [facility] [id number] [place] [address]- 9075 Nov, [facility] [address] [id number] [place] [id number] Nov, [facility] [address] [id number] [place] [id number] Nov, [facility] [address] [id number] [place] [address] Nov, [facility] [place] [facility] [address] [facility] [id number] [place] [address]- 5146 Nov, [facility] [place] [facility] [address] [facility] [id number] [place] [address]- 3626 17 Nov, 2013 [facility] [place] [facility] [address] [facility] [id number], [place] [address]- 49[address] 17 Nov, 2013 [facility] [place] [facility] [address] [facility] [id number], [place] [address]- 0590 15 Nov, 2013 [facility] [place] [facility] [address] [facility] [id number] [place] [address]- 1241 14 Nov, 2013 [facility] [place] [facility] [address] [facility] [id number], [place] [address]- 3901 12 Nov, 2013 [facility] [address] [facility] [id number] [id number] Nov, [facility] [address] [facility] [id number] [place] [id number] Oct, [facility] [place] [facility] [address] [facility] [id number], [place] [address]- 2546 Oct, [facility] [address] [facility] [id number][place] [id number] Oct, [facility] [place] [facility] [address] [facility] [id number], [place] [address]- 9796 Oct, [facility] [place] [facility] [address]00565[address], [place] [address]- 2546 Oct, [facility] [address] [id number] [id number] Sep, [facility] [place] [facility] [address]65100[place], [place] [address]- 3796 Sep, [facility] [address] [id number], [place] [address] Sep, [facility] [place] [facility] [address]65100[place], [place] [address]- 5086 Sep, [facility] [place] [facility] [address]65100[place], [place] [address]- 6508 Sep, [facility] [place] [facility] [address]65100[place], [place] [address]- 7736 Sep, [facility] [place] [facility] [address] [facility] [id number], [place] [address]- 9166 Aug, [facility] [address] [facility] [id number], [place] [address] Aug, [facility] [place] [facility] [address] [facility] [id number], [place] [address]- 9936 Aug, [facility] [address] [facility] [id number][place] [id number] Jul, [facility] [place] [facility] [address]65100[place], [place] [address]- 9126 Jul, [facility] [address] [id number], [place] [address] Jul, [facility] [address] [facility] [id number], [place] [address]- 9168 Jul, [facility] [address] [facility] [id number], [place] [address]- 4962 May, [facility] [address] [facility] [id number] [address] 15928- 7687 Apr, [facility] [place] [facility] [address] [facility] [id number], [place] [address]- 4245 Apr, [facility] [address] [facility] [id number], [place] [address]- 9595 Mar, [facility] [address] [id number], [place] [address] Feb, [facility] [address] [id number], [place] [address] Feb, [facility] [address] [id number], [place] [address] Feb, [facility] [address]65100[place], [place] [address]- 4231 Feb, [facility] [address] [facility] [id number], [place] [address]- 5067 January, [facility] [address] [facility] [id number], [place] [address]- 2546 January, [facility] [address] [id number], [place] [address] Dec, [facility] [address] [id number] [place] [id number] Dec, [facility] [address] [id number] [place] [address] Dec, [facility] [address] [id number] [place] [id number] Dec, [facility] [address] [id number], [place] 575[address] Dec, [facility] [address] [id number] [place] [address] Dec, [facility] [address] [id number] [place] [address]- 2546 Dec, [facility] [address] [facility] [id number] [place] [address]- 2546 Dec, [facility] [address] [id number] [place] [id number] Nov, [facility] [address] [id number] [place] [address] Nov, [facility] [address] [id number] [place] [address] Nov, [facility] [address] [facility] [id number] [place] [address]- 2546 Oct, [facility] [place] [facility] [address] [place] [address]- 2546 Oct, [facility] [place] [facility] [address] [facility] [id number] [place] [address]- 4966 Sep, [facility] [place] [facility] [address] [id number] [place] [address]- 5446 Aug, [facility] [place] [facility] [address] [facility] [id number], [place] [address]- 5886 Aug, [facility] [place] [facility] [address] [id number], [place] [address]- 2546 Aug, [facility] [place] [facility] [address] [facility] [id number] [place] [address]- 2546 Aug, [facility] [address] [facility] [id number] [place] [id number] Aug, [facility] [place] [facility] [address] [facility] [id number] [place] [address]- 2546 Aug, [facility] [place] [facility] [address] [facility] [id number], [place] [address]- 9946 Jul, [facility] [place] [facility] [address] [facility] [id number], [place] [address]- 8170 Jul, [facility] [place] [facility] [address] [facility] [id number] [place] [address]- 2032 Jul, [facility] [place] [facility] [address] [facility] [id number], [place] [address]- 5696 Jul, [facility] [address] [facility] [id number] [id number] Jun, [facility] [address] [facility] [id number] [place] 15234[address] Jun, [facility] [place] [facility] [address] [facility] [id number], [place] [address]- 0970 Jun, [facility] [address] [id number], [place] [address]229249 Apr, [facility] [place] [facility] [address]65100[place], [place] [address]- 7562 Apr, [facility] [place] [facility] [address] [facility] [id number], [place] [address]- 6529 Mar, [facility] [address] [facility] [id number], [place] [id number] Feb, [facility] [address] [facility] [id number], [place] 011651595 Feb, [facility] [place] [facility] [address] [facility] [id number], [place] [address]- 4352 Feb, [facility] [address] [facility] [id number], [place] 866321744 Feb, [facility] [place] [facility] [address] [facility] [id number], [place] [address]- 0683 Feb, [facility] [place] [facility] [address] [facility] [id number], [place] [address]- 9516 Feb, [facility] [place] [facility] [address] [facility] [id number], [place] [address]- 4831 Feb, [facility] [place] [facility] [address] [facility] [id number], [place] [address]- 2546 Feb, [facility] [address] [id number] [place] [id number] January, [facility] [address] [id number] [place] [address]96[address] Dec, [facility] [address] [facility] [id number], [place] [address]- 2546 Dec, [facility] [address] [facility] [id number], [place] [address]- 2546 Dec, [facility] [address] [id number] [place] [id number] Dec, [facility] [address] [facility] [id number], [place] [address]- 2546 Dec, [facility] [address] [id number] [id number] Dec, [facility] [address] [id number] [place] [id number] Nov, [facility] [address] [id number] [place] 875[place]383 Nov, [facility] [address] [id number] [place] [id number] Nov, [facility] [address] [id number] [place] [id number] Nov, [facility] [address] [id number], [place] [address]- 2546 Oct, [facility] [address] [id number] [place] [id number] Oct, [facility] [address] [id number] [place] [id number] Oct, [facility] [address] [id number] [place] [id number] Oct, [facility] [address] [id number] [place] [id number] Oct, [facility] [address] [id number], [place] [id number] Sep, [facility] [address] [id number] [place] 1359318[address] Sep, [facility] [address] [id number] [place] [address]- 3107 Sep, [facility] [address] [id number] [place] [address]- 0255 Sep, [facility] [address] [id number] [place] [address]- 7874 Sep, [facility] [address] [id number] [place] [address]- 8993 Sep, [facility] [address] [id number] [place] [address] Aug, [facility] [address] [id number] [place] [address] Aug, [facility] [address] [id number] [place] [address] Aug, [facility] [address] [id number] [place] [address] Aug, [facility] [address] [id number] [place] [address] Aug, [facility] [address] [id number] [place] [address] Aug, [facility] [address] [id number] [place] [address] Aug, [facility] [address] [id number] [place] [address] Aug, [facility] [address] [id number] [place] [address] Jun, [facility] [address] [id number] [place] [address] Jun, [facility] [address] [id number] [place] [address] Jun, [facility] [place] [facility] [address] [id number] [place] [address] 19 Jun, 2011 [facility] [place] [facility] [address] [id number] [place] [address] 14 Jun, 2011 [facility] [place] [facility] [address] [id number] [place] [address] 13 Jun, 2011 [facility] [place] [facility] [address] [id number] [place] [address] 12 Jun, 2011 [facility] [place] [facility] [address] [id number] [place] [address] 12 Jun, 2011 [facility] [place] [facility] [address] [id number] [place] [address] 12 Jun, 2011 [facility] [place] [facility] [address] [id number] [place] [address] 14 May, 2011 [facility] [place] [facility] [address] [id number] [place] [address] 10 Apr, 2011 [facility] [place] [facility] [address] [id number] [place] [address] 16 Feb, 2011 [facility] [place] [facility] [address] [id number], [place] [address] 20 Dec, 2010 [facility] [place] [facility] [address] [id number], [place] [address] Aug, [facility] [place] [facility] [address] [id number], [place] [address] 28 Aug, 2010 [facility] [place] [facility] [address] [id number] [place] [address] 15 Aug, 2010 [facility] [place] [facility] [address] [id number], [place] [address] Aug, [facility] [place] [facility] [address] [id number] [address] 05 Jul, 2010 [facility] [place] [facility] [address] [id number], [place] [address] Jun, [facility] [address] [facility] [id number] [place] [address] Jun, IMMUNIZATIONS No Known Immunizations SOCIAL HISTORY Never Assessed REASON FOR VISIT PLAN OF CARE VITAL SIGNS MEDICATIONS Medication Instructions Dosage Frequency Start Date End Date Duration Status Latuda 80 MG Orally every dinner time 1 tablet 30 days Active RESULTS No [...] Coronary atherosclerosis of unspecified type of vessel, koi or graft Medical History Coronary atherosclerosis of unspecified type of vessel, koi or graft Surgical History section x4 Surgical History CABG x3 Surgical History Left arm-Plate and screws placed Hospitalization History Surgery(s)/Childbirth(s) only
--- OUTSIDE RECORDS SUMMARY | 2019-02-02 13:57 | XMS REPORT ---
Author Author DEANA KEVON [facility] Address [address] [place] [address] Care Team Providers Care Demurrage Man Name Role Phone DEANA KEVON Unavailable PROBLEMS Type Condition ICD9-CM Code [id number] Code Onset Dates Condition Status SNOMED Code Problem Chronic obstructive pulmonary disease with acute exacerbation J44.1 Active 364759697 Problem MESERET (generalized anxiety disorder) F41.1 Active 27943046 Problem Panic disorder F41.0 Active 287272940 Problem Morbid (severe) obesity due to excess calories E66.01 Active 80047516137187 Problem Body mass index (BMI) of 45.0-49.9 in adult Z68.42 Active 841047544 Problem Coronary artery disease involving blue lake coronary artery of blue lake heart without angina pectoris I25.10 Active [id number] Problem Mood disorder F39 Active 25578666 Problem Bipolar disorder, in partial remission, most recent episode depressed F31.75 Active 84557305 Problem Claudication I73.9 Active 655701308 Problem Mixed hyperlipidemia E78.2 Active 565368988 Problem PTSD (post-traumatic stress disorder) F43.10 Active 58862360 Problem Sleep apnea in adult G47.30 Active 67499230 Problem COPD mixed type J44.9 Active 18475678 Problem Obesity (BMI 30-39.9) E66.9 Active 240618852 Problem Coronary artery disease involving coronary bypass graft of blue lake heart without angina pectoris I25.810 Active 600390362 Problem Bipolar 1 disorder F31.9 Active 692865277 Problem Essential hypertension I10 Active 75334129 ALLERGIES Substance Reaction Event Type Date Status Penicillin V Potassium Swelling/hives Drug Allergy January, Active Abilify dizziness Drug Allergy January, Active ENCOUNTERS Encounter Location Date Diagnosis [facility] [address] [facility] [id number] [address] May, [facility] [id number] [place] [address] 89570- 7051 Apr, [address] [place] [address] [id number] Apr, [place] [id number] [place] [address] 57056- 9521 Apr, Bipolar 1 disorder, depressed F31.[address] [address] Mar, Bipolar disorder, in partial remission, most recent episode depressed F31.75 ; MESERET (generalized anxiety disorder) F41.1 ; Panic disorder F41.0 and BMI 45.0-49.9, adult Z68.[address] [id number] 16 Mar, 2018 High risk medication use Z79.899 and Mixed hyperlipidemia E78.[address] [id number] Mar, COPD mixed type J44.9 ; Essential hypertension I10 ; Sleep apnea in adult G47.30 ; Mixed hyperlipidemia E78.2 ; Morbid (severe) obesity due to excess calories E66.01 ; Body mass index (BMI) of 45.0-49.9 in adult Z68.42 ; Tobacco abuse Z72.0 ; Tobacco abuse counseling Z71.6 and BMI 45.0-49.9, adult Z68.42 [place] [address] [place] [address] 87827- 6394 Feb, Bipolar disorder, in partial remission, most recent episode depressed F31.75 ; MESERET (generalized anxiety disorder) F41.1 ; Panic disorder F41.0 and BMI 45.0-49.9, adult Z68.42 [place] [id number] [place] [address] 54361- 9677 Feb, Bipolar 1 disorder, depressed F31.9 ; PTSD (post-traumatic stress disorder) F43.10 and Panic attacks F41.0 [place] [id number] [place] [address] 00824- 2702 Feb, High risk medication use Z79.899 [place] [address] [place] [address] 87653- 1792 January, High risk medication use Z79.899 ; Bipolar disorder, in partial remission, most recent episode depressed F31.75 ; MESERET (generalized anxiety disorder) F41.1 ; Panic disorder F41.0 and BMI 45.0-49.9, adult Z68.42 [place] [id number] [place] [address] 17711- 7196 January, Bipolar 1 disorder, depressed F31.9 ; PTSD (post-traumatic stress disorder) F43.10 and Panic attacks F41.0 [place] [id number] [place] [address] 01704- 3244 January, Bipolar 1 disorder, depressed F31.9 ; PTSD (post-traumatic stress disorder) F43.10 and Panic attacks F41.0 [place] [id number] [place] [address] 86453- 6170 Dec, BMI 45.0-49.9, adult Z68.42 ; Bipolar disorder, in partial remission, most recent episode depressed F31.75 ; MESERET (generalized anxiety disorder) F41.1 and Panic disorder F41.0 [place] [address] [place] [address] 12818- 3937 Dec, Bipolar 1 disorder, depressed F31.9 ; PTSD (post-traumatic stress disorder) F43.10 and Panic attacks F41.0 [place] [address] [place] [address] 54813- 4195 Nov, Bipolar disorder, in partial remission, most recent episode depressed F31.75 ; MESERET (generalized anxiety disorder) F41.1 and Panic disorder F41.0 [place] [address] [place] [address] 16169- 8638 Nov, [place] [id number] [place] [address] 85856- 2936 Nov, [place] [address] [address] 8070 Oct, BMI 45.0-49.9, adult Z68.42 ; Bipolar disorder, in partial remission, most recent episode depressed F31.75 ; MESERET (generalized anxiety disorder) F41.1 and Panic disorder F41.[address] [id number] [id number] 23 Oct, 2017 BMI 45.0-49.9, adult Z68.42 ; Coronary artery disease involving blue lake coronary artery of blue lake heart without angina pectoris I25.10 ; Hx of CABG Z95.1 ; Dyspnea on exertion R06.09 ; Essential hypertension I10 ; Mixed hyperlipidemia E78.2 ; Claudication I73.9 and Tobacco use Z72.0 [facility] [address] [id number] [id number] 15 Oct, 2017 BMI 45.0-49.9, adult Z68.42 ; Bipolar 1 disorder, depressed F31.9 and Abscess L02.[address] [place] [address] 02601- 1528 14 Oct, 2017 Bipolar 1 disorder, depressed F31.9 ; PTSD (post-traumatic stress disorder) F43.10 and Panic attacks F41.0 [address]00565100[place] [address]- 5714 Sep, BMI 40.0-44.9, adult Z68.41 ; Mood disorder F39 ; MESERET ( generalized anxiety disorder) F41.1 and Panic disorder F41.0 [place] [address]65100[place] [address]- 3626 Sep, BMI 40.0-44.9, adult Z68.[address] [place] [address] 33734- 0279 Sep, Bipolar 1 disorder, depressed F31.9 ; PTSD (post-traumatic stress disorder) F43.10 and Panic attacks F41.0 [place] [address] [place] [address] 18400- 4843 Aug, BMI 40.0-44.9, adult Z68.41 ; Mood disorder F39 ; MESERET ( generalized anxiety disorder) F41.1 and Panic disorder F41.0 [facility] [id number] [place] [address] 55825- 7025 Aug, Bipolar 1 disorder, depressed F31.9 ; PTSD (post-traumatic stress disorder) F43.10 and Panic attacks F41.0 [facility] [id number] [place] [address] [id number] Aug, [facility] [id number] [place] [address] [id number] Aug, COPD mixed type J44.9 [place] [id number] [place] [address] 56670- 9639 Aug, [facility] [id number] [place] [address] 32481- 3446 Jul, PTSD (post-traumatic stress disorder) F43.10 ; Panic disorder F41.0 ; MESERET (generalized anxiety disorder) F41.1 ; Mood disorder F39 and BMI 40.0-44.9, adult Z68.41 [facility] [id number] [place] [address] 53345- 4932 Jul, Bipolar 1 disorder, depressed F31.9 ; PTSD (post-traumatic stress disorder) F43.10 and Panic attacks F41.0 [facility] [address] [place] [address] [id number] Jul, Bipolar 1 disorder, depressed F31.9 [facility] [id number] [place] [address] [id number] Jul, Anxiety F41.9 ; COPD mixed type J44.9 ; Essential hypertension I10 ; Bipolar 1 disorder F31.9 ; High risk medication use Z79.899 ; BMI 40.0-44.9, adult Z68.41 and Coronary artery disease involving coronary bypass graft of blue lake heart without angina pectoris I25.810 [facility] [id number] [place] [address] [id number] Jul, Chronic obstructive pulmonary disease with acute exacerbation J44.1 and Acute nasopharyngitis J00 [id number] [id number] Jul, Anxiety F41.9 ; Mixed hyperlipidemia E78.2 and Bipolar 1 disorder F31.9 [facility] [address] [id number] [place] [address] Jun Bipolar 1 disorder F31.9 [facility] [address] [id number] [place] [address] [address] [id number] [address] Jun, Anxiety F41.9 ; Elevated blood sugar R73.9 ; Mixed hyperlipidemia E78.2 ; COPD mixed type J44.9 ; Essential hypertension I10 ; Bipolar 1 disorder F31.9 ; Coronary artery disease involving coronary bypass graft of blue lake heart without angina pectoris I25.810 ; High risk medication use Z79.899 ; Controlled substance agreement signed Z79.899 ; Elevated fasting glucose R73.01 ; Encounter for immunization Z23 and BMI 40.0-44.9, adult Z68.41 [address] [place] [address] [id number] Jun, Elevated blood sugar R73.9 [address] [place] [address] [id number] Jun, [address] [place] [address] [id number] Jun, Bipolar 1 disorder F31.9 ; Obesity (BMI 30-39.9) E66.9 ; Coronary artery disease involving coronary bypass graft of blue lake heart without angina pectoris I25.810 and Essential hypertension I10 [address] [place] [address] [id number] Jun, Coronary artery disease involving coronary bypass graft of blue lake heart without angina pectoris I25.810 ; Bipolar 1 disorder F31.9 ; Anxiety F41.9 ; Essential hypertension I10 ; COPD mixed type J44.9 and Mixed hyperlipidemia E78.2 [id number] [address] May, Severe single current episode of major depressive disorder, 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.2 ; Bipolar 1 disorder F31.9 ; Anxiety F41.9 ; PTSD (post -traumatic stress disorder) F43.10 ; Coronary artery disease involving coronary bypass graft of blue lake heart without angina pectoris I25.810 ; Sleep apnea in adult G47.30 ; Essential hypertension I10 ; High risk medication use Z79.899 ; Obesity (BMI 30-39.9) E66.9 ; Encounter for therapeutic drug level monitoring Z51.81 and COPD mixed type J44.9 [facility] [address] [place] [id number] [place] [address] [id number] May, Severe single current episode of major depressive disorder, 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.2 ; Bipolar 1 disorder F31.9 ; Anxiety F41.9 ; PTSD (post -traumatic stress disorder) F43.10 ; Mixed hyperlipidemia E78.2 ; Coronary artery disease involving coronary bypass graft of blue lake heart without angina pectoris I25.810 ; Sleep apnea in adult G47.30 ; Essential hypertension I10 ; High risk medication use Z79.899 ; Controlled substance agreement signed Z79.899 ; Obesity (BMI 30-39.9) E66.9 ; Tobacco abuse Z72.0 ; Tobacco abuse counseling Z71.6 and COPD mixed type J44.9 [facility] [id number] [place] [address] [id number] May, [facility] [address] [address]- 0858 Dec, [facility] [id number] [place] [address] 30450- 2794 Dec, [facility] [id number] [place] [address] 78733- 7504 May, [facility] [id number] [place] [address] 00237- 4696 May, [facility] [id number] [place] [address] [id number] Dec, [facility] [address] [place] [id number] [place] [address]- 4336 Dec, [facility] [address] [facility] [id number] [place] [id number] Dec, [facility] [place] [facility] [address] [facility] [id number] [place] [address] 2546 Dec, [facility] [place] [facility] [address] [facility] [id number] [place] [address]- 2546 Dec, [facility] [place] [facility] [address] [facility] [id number] [place] [address] 2546 Dec, [facility] [place] [facility] [address] [facility] [id number] [place] [address] 2546 Nov, [facility] [address] [facility] [id number] [place] [id number] Nov, [facility] [address] [facility] [id number] [place] [id number] Nov, [facility] [address] [facility] [id number] [id number] Nov, [facility] [place] [facility] [address] [facility] [id number] [place] [address]- 8276 Nov, [facility] [place] [facility] [address] [facility] [id number] [place] [address]- 8366 Nov, [facility] [place] [facility] [address] [facility] [id number] [address]- 5306 Nov, [facility] [place] [facility] [address] [facility] [id number] [place] [address]- 9816 15 Nov, 2013 [facility] [place] [facility] [address] [facility] [id number] [place] [address]- 4127 14 Nov, 2013 [facility] [place] [facility] [address] [facility] [id number] [place] [address]- 5036 Nov, [facility] [address] [id number] [id number] Nov, [facility] [address] [facility] [id number] [id number] Oct, [facility] [place] [facility] [address] [id number] [address]- 8920 Oct, [facility] [address] [facility] [id number] [place] [id number] Oct, [facility] [place] [facility] [address] [facility] [id number] [address]- 9816 Oct, [facility] [place] [facility] [address] [place] [address] [id number] [address] 2546 Oct, [facility] [address] [id number] [id number] Sep, [facility] [place] [facility] [address] [place] [address] [id number] [address]- 5886 Sep, [facility] [address] [place] [id number] [address] Sep, [facility] [place] [facility] [address] [address]- 0696 Sep, [facility] [place] [facility] [address] [place] [address] [id number] [address]- 5131 Sep, [facility] [place] [facility] [address] [address]- 6889 Sep, [facility] [place] [facility] [address] [address]- 8810 Aug, [facility] [address] [place] [address] [id number] [address] Aug, [facility] [place] [facility] [address] [facility] [id number] [place] [address]- 2546 Aug, [facility] [address] [facility] [id number][place] [id number] Jul, [facility] [place] [facility] [address] [facility] [id number] [place] [address]- 2546 Jul, [facility] [address] [id number] 498506[address] Jul, [facility] [place] [facility] [address] [address]- 5269 Jul, [facility] [address] [facility] [id number] [place] [address]- 2318 May, [facility] [place] [facility] [address] [facility] [id number] [place] [address]- 9948 Apr, [facility] [address] [facility] [id number] [place] [address] 2548 Apr, [facility] [place] [facility] [address] [facility] [id number] [place] [address]- 1243 Mar, [facility] [address] [id number][place] [address] Feb, [facility] [address] [id number] 0041716[address] Feb, [facility] [address] [id number] [address] Feb, [facility] [address]00565100[place] [address]- 8862 Feb, [facility] [address]00565100[place] [address]- 0587 January, [facility] [address]00565100[place] [address]- 9239 January, [facility] [address] [id number][place] 146178062 Dec, [facility] [address] [id number][place] 08[address] Dec, [facility] [address] [id number][place] 163128134 Dec, [facility] [address] [id number] [place] [address] Dec, [facility] [address] [id number] [place] [address] Dec, [facility] [address] [id number] [place] [address] Dec, [facility] [place] [facility] [address]00565100[place] [address]- 2546 Dec, [facility] [address] [id number] [place] [address]- 2546 Dec, [facility] [address] [id number] [place] [address] Nov, [facility] [address] [facility] [id number] [place] 92[address]259[address] Nov, [facility] [address] [facility] [id number] [place] [address] Nov, [facility] [address] [facility] [id number] [place] [address]- 5936 Oct, [facility] [place] [facility] [address] [facility] [id number] [place] [address]- 2546 Oct, [facility] [place] [facility] [address]65100[place] [address]- 1436 Sep, [facility] [place] [facility] [address] [id number] [address]- 1995 Aug, [facility] [place] [facility] [address] [facility] [id number] [place] [address]- 2988 Aug, [facility] [place] [facility] [address] [id number] [address]- 1223 Aug, [facility] [place] [facility] [address] [id number] [address]- 4426 Aug, [facility] [address] [id number] 1523028[address] Aug, [facility] [place] [facility] [address] [facility] [id number] [place] [address]- 2775 Aug, [facility] [place] [facility] [address] [facility] [id number] [place] [address]- 2036 Jul, [facility] [place] [facility] [address] [facility] [id number] [place] [address]- 1286 Jul, [facility] [place] [facility] [address] [address]- 4016 Jul, [facility] [place] [facility] [address] [id number] [place] [address]- 2546 Jul, [facility] [address] [id number] [place] [address]188350[address] Jun, [facility] [address] [id number] [place] [address]50[address] Jun, [facility] [place] [facility] [address] [id number] [place] [address]- 2546 Jun, [facility] [address] [id number] [place] [id number] Apr, [facility] [place] [facility] [address] [facility] [id number] [place] [address] 2546 Apr, [facility] [place] [facility] [address] [facility] [id number] [place] [address] 2546 Mar, [facility] [address] [id number][place] 826842736 Feb, [facility] [address] [id number][place] 055612618 Feb, [facility] [place] [facility] [address] [facility] [id number] [place] [address]- 7313 Feb, [facility] [address] [id number][place] 954556[address] Feb, [facility] [place] [facility] [address] [facility] [id number] [place] [address]- 0203 Feb, [facility] [place] [facility] [address] [facility] [id number] [place] [address]- 7326 Feb, [facility] [place] [facility] [address] [facility] [id number] [place] [address]- 3764 Feb, [facility] [place] [facility] [address] [facility] [id number] [place] [address]- 4946 Feb, [facility] [address] [id number][place] [id number] January, [facility] [address] [id number] [place] [address] Dec, [facility] [address] [facility] [id number] [place] [address]- 7062 Dec, [facility] [place] [facility] [address] [facility] [id number] [address]- 8060 Dec, [facility] [address] [id number] [place] 1687[address] Dec, [facility] [address] [facility] [id number] [place] [address]- 0194 Dec, [facility] [address] [id number] [place] [address]1924[address] Dec, [facility] [address] [id number] [place] [address]695 Nov, [facility] [address] [id number] [place] [address]16[place]05[address] Nov, [facility] [address] [id number] [place] [id number] Nov, [facility] [address] [id number] [place] 8155[address] Nov, [facility] [address]100[place] [address]- 2706 Oct, [facility] [address] [id number] [place] [address] Oct, [facility] [address] [id number] [place] 460[address]117 Oct, [facility] [address] [id number] [place] [address]18[place] Oct, [facility] [address] [id number] [place] [address] Oct, [facility] [address] [id number] [place] 0575[address] Sep, [facility] [address] [id number] [place] 435138924 Sep, [facility] [address]00565100[place] [address]- 3473 Sep, [facility] [address] [id number] [place] [address]- 5289 Sep, [facility] [place] [facility] [address] [id number] [place] [address]- 8297 Sep, [facility] [place] [facility] [address] [id number] [place] [address]- 0920 Sep, [facility] [place] [facility] [address] [id number] [place] [address] Aug, [facility] [place] [facility] [address] [id number] [place] [address] Aug, [facility] [place] [facility] [address] [id number] [place] [address] Aug, [facility] [place] [facility] [address] [id number] [place] [address] Aug, [facility] [place] [facility] [address] [id number] [place] [address] Aug, [facility] [place] [facility] [address] [id number] [place] [address] Aug, [facility] [place] [facility] [address] [id number] [place] [address] Aug, [facility] [place] [facility] [address] [id number] [place] [address] Aug, [facility] [place] [facility] [address] [id number] [address] Jun, [facility] [place] [facility] [address] [id number] [place] [address] Jun, [facility] [place] [facility] [address] [id number] [place] [address] Jun, [facility] [place] [facility] [address] [id number] [place] [address] Jun, [facility] [place] [facility] [address] [facility] [id number] [place] [address] 14 Jun, 2011 [facility] [address] [facility] [id number] [place] [address] [address] 13 Jun, 2011 [facility] [address] [facility] [id number] [place] [address] [address] 12 Jun, 2011 [facility] [address] [facility] [id number] [place] [address] 12 Jun, 2011 [facility] [address] [facility] [id number] [place] [address] 12 Jun, 2011 [facility] [address] [facility] [id number] [place] [address] 14 May, 2011 [facility] [address] [facility] [id number] [place] [address] 10 Apr, 2011 [facility] [id number] [address] 16 Feb, 2011 [facility] [address] [facility] [id number] [place] [address] 20 Dec, 2010 [facility] [id number] [address] 28 Aug, 2010 [facility] [id number] [place] [address] 28 Aug, 2010 [facility] [id number] [place] [address] 15 Aug, 2010 [facility] [address] [facility] [id number] [address] Aug, [facility] [address] [id number] [address] 05 Jul, 2010 [facility] [address] [facility] [id number] [place] [address] [address] 27 Jun, 2010 [facility] [facility] [address] [id number], [place] [id number] 19 Jun, 2010 IMMUNIZATIONS No Known Immunizations SOCIAL HISTORY Never Assessed REASON FOR VISIT alycia/aleksander Sandy MA PLAN OF CARE Activity Details Follow Up 4 Weeks, prn Reason: VITAL SIGNS Height 59 in 2018-02-10 Weight 239.4 lbs 2018-02-10 Heart Rate 88 bpm 2018-02-10 Respiratory Rate 20 2018-02-10 BMI 48.35 kg/m2 2018-02-10 Blood pressure systolic 142 mmHg 2018-02-10 Blood pressure diastolic 80 mmHg 2018-02-10 MEDICATIONS Medication Instructions Dosage Frequency Start Date End Date Duration Status Aspir-81 81 MG Orally Once a day 1 tablet 24h Active Singulair 10 MG Orally Once a day 1 tablet 24h Active Benzonatate 100 mg Orally Three times a day 1 capsule as needed 8h Jul, Active [place] Carbonate 300 MG Orally daily 2 capsules in morning and one at night 24h 30 days Active Losartan Potassium-HCTZ 50-12.5 MG TAKE ONE (1) TABLET BY MOUTH TWICE DAILY... Active Trazodone HCl 100 MG Orally at night as needed for sleep 0.5 -1 tablet 30 days Active Trihexyphenidyl HCl 2 MG Orally Three times a day 0.5 tablet 8h January, 30 day(s) Active ProAir HFA 108 (90 Base) MCG/ACT INHALE TWO PUFFS EVERY FOUR HOURS NEEDED. Active Zyrtec Allergy 10 MG Orally Once a day 1 tablet 24h Active Atorvastatin Calcium 40 mg Orally Once a day 1 tablet 24h 0 Active Ventolin HFA 108 (90 Base) MCG/ACT Inhalation every 4 hrs 2 puffs as needed 4h Active Alprazolam 0.5 MG Orally Three times a day as needed for anxeity 1 tablet 30 days Active PredniSONE Not-Taking Symbicort 160-4.5 MCG/ACT Inhalation Twice a day 2 puffs 12h 0 Active Albuterol Sulfate (2.5 MG/3ML) 0.083% Inhalation Three times a day 3 ml 8h Active Spiriva Respimat 2.5 MCG/ACT Inhalation Once a day 1 puff 24h Active Latuda 80 MG Orally every dinner time 1 tablet 30 days Active Xanax 0.5 MG Orally Three times a day as needed 1 tablet Dec, 30 days Active RESULTS No Results PROCEDURES [...] Coronary atherosclerosis of unspecified type of vessel, [place] or graft Medical History Coronary atherosclerosis of unspecified type of vessel, [place] or graft Surgical History section x4 Surgical History CABG x3 Surgical History Left arm-Plate and screws placed Hospitalization History Surgery(s)/Childbirth(s) only
--- OUTSIDE RECORDS SUMMARY | 2019-02-02 13:57 | XMS REPORT ---
Author Author MAL SHARMA Organization [facility] Address [address] [place] [address] Care Team Providers Care Continuous Absorption Process Operator Name Role Phone MAL SHARMA Unavailable PROBLEMS Type Condition ICD9-CM Code QMA31-PB Code Onset Dates Condition Status SNOMED Code Problem Chronic obstructive pulmonary disease with acute exacerbation J44.1 Active 667670118 Problem MESERET (generalized anxiety disorder) F41.1 Active 97452244 Problem Panic disorder F41.0 Active 119736129 Problem Morbid (severe) obesity due to excess calories E66.01 Active 44652909126310 Problem Body mass index (BMI) of 45.0-49.9 in adult Z68.42 Active 011651914 Problem Coronary artery disease involving agdaagux coronary artery of agdaagux heart without angina pectoris I25.10 Active 8881895994400 Problem Mood disorder F39 Active 67270002 Problem Bipolar disorder, in partial remission, most recent episode depressed F31.75 Active 44191672 Problem Claudication I73.9 Active 382130156 Problem Mixed hyperlipidemia E78.2 Active 571408796 Problem PTSD (post-traumatic stress disorder) F43.10 Active 02119824 Problem Sleep apnea in adult G47.30 Active 30568893 Problem COPD mixed type J44.9 Active 45180423 Problem Obesity (BMI 30-39.9) E66.9 Active 964716947 Problem Coronary artery disease involving coronary bypass graft of agdaagux heart without angina pectoris I25.810 Active 335769630 Problem Bipolar 1 disorder F31.9 Active 436312384 Problem Essential hypertension I10 Active 49379383 ALLERGIES No Information ENCOUNTERS Encounter Location Date Diagnosis [facility] [address] [id number] [address] May, [facility] [address] [facility] [id number] [address] Apr, [address] [id number] [id number] Apr, [place] [id number] [place] [address] 76708- 2934 Apr, Bipolar 1 disorder, depressed F31.9 [address] [address] [place] [address] 95073- 0035 Mar, Bipolar disorder, in partial remission, most recent episode depressed F31.75 ; MESERET (generalized anxiety disorder) F41.1 ; Panic disorder F41.0 and BMI 45.0-49.9, adult Z68.42 [facility] [address] [place] [address] [id number] 16 Mar, 2018 High risk medication use Z79.899 and Mixed hyperlipidemia E78.[address] [place] [address] [id number] Mar, COPD mixed type J44.9 ; Essential hypertension I10 ; Sleep apnea in adult G47.30 ; Mixed hyperlipidemia E78.2 ; Morbid (severe) obesity due to excess calories E66.01 ; Body mass index (BMI) of 45.0-49.9 in adult Z68.42 ; Tobacco abuse Z72.0 ; Tobacco abuse counseling Z71.6 and BMI 45.0-49.9, adult Z68.42 [address] [address] [place] [address] 57961- 7569 Feb, Bipolar disorder, in partial remission, most recent episode depressed F31.75 ; MESERET (generalized anxiety disorder) F41.1 ; Panic disorder F41.0 and BMI 45.0-49.9, adult Z68.42 [place] [address] [address] Feb, Bipolar 1 disorder, depressed F31.9 ; PTSD (post-traumatic stress disorder) F43.10 and Panic attacks F41.0 [address] [address] [place] [address] 40723- 6292 Feb, High risk medication use Z79.899 [place] [address] [place] [address] January, High risk medication use Z79.899 ; Bipolar disorder, in partial remission, most recent episode depressed F31.75 ; MESERET (generalized anxiety disorder) F41.1 ; Panic disorder F41.0 and BMI 45.0-49.9, adult Z68.42 [place] [id number] [place] [address] 23599- 5750 January, Bipolar 1 disorder, depressed F31.9 ; PTSD (post-traumatic stress disorder) F43.10 and Panic attacks F41.0 [place] [id number] [place] [address] 60947- 3896 January, Bipolar 1 disorder, depressed F31.9 ; PTSD (post-traumatic stress disorder) F43.10 and Panic attacks F41.0 [place] [id number] [place] [address] 19096- 1420 Dec, BMI 45.0-49.9, adult Z68.42 ; Bipolar disorder, in partial remission, most recent episode depressed F31.75 ; MESERET (generalized anxiety disorder) F41.1 and Panic disorder F41.0 [place] [id number] [place] [address] 58981- 1608 Dec, Bipolar 1 disorder, depressed F31.9 ; PTSD (post-traumatic stress disorder) F43.10 and Panic attacks F41.0 [place] [address] [place] [address] 16526- 2464 Nov, Bipolar disorder, in partial remission, most recent episode depressed F31.75 ; MESERET (generalized anxiety disorder) F41.1 and Panic disorder F41.0 [place] [id number] [place] [address] 20994- 5742 Nov, [place] [id number] [place] [address] 20248- 7105 Nov, [place] [id number] [place] [address] 97194- 5683 Oct, BMI 45.0-49.9, adult Z68.42 ; Bipolar disorder, in partial remission, most recent episode depressed F31.75 ; MESERET (generalized anxiety disorder) F41.1 and Panic disorder F41.0 [facility] [address] [facility] [id number] [id number] 23 Oct, 2017 BMI 45.0-49.9, adult Z68.42 ; Coronary artery disease involving agdaagux coronary artery of agdaagux heart without angina pectoris I25.10 ; Hx of CABG Z95.1 ; Dyspnea on exertion R06.09 ; Essential hypertension I10 ; Mixed hyperlipidemia E78.2 ; Claudication I73.9 and Tobacco use Z72.0 [facility] [address] [facility] [id number] [id number] 15 Oct, 2017 BMI 45.0-49.9, adult Z68.42 ; Bipolar 1 disorder, depressed F31.9 and Abscess L02.91 [place] [address] [place] [address] 05534- 5470 14 Oct, 2017 Bipolar 1 disorder, depressed F31.9 ; PTSD (post-traumatic stress disorder) F43.10 and Panic attacks F41.0 [place] [address] [place] [address] 32586- 8146 Sep, BMI 40.0-44.9, adult Z68.41 ; Mood disorder F39 ; MESERET ( generalized anxiety disorder) F41.1 and Panic disorder F41.0 [place] [address] [place] [address] 22239- 5910 Sep, BMI 40.0-44.9, adult Z68.41 [facility] [address] [place] [address] 52759- 8937 Sep, Bipolar 1 disorder, depressed F31.9 ; PTSD (post-traumatic stress disorder) F43.10 and Panic attacks F41.0 [facility] [address] [place] [address] 10314- 1919 Aug, BMI 40.0-44.9, adult Z68.41 ; Mood disorder F39 ; MESERET ( generalized anxiety disorder) F41.1 and Panic disorder F41.0 [facility] [address] [place] [address] 02759- 3085 Aug, Bipolar 1 disorder, depressed F31.9 ; PTSD (post-traumatic stress disorder) F43.10 and Panic attacks F41.0 [facility] [id number] [place] [address] [id number] Aug, [facility] [id number] [place] [address] [id number] Aug, COPD mixed type J44.9 [facility] [id number] [place] [address] 07230- 9988 Aug, [facility] [id number] [place] [address] 53335- 9925 Jul, PTSD (post-traumatic stress disorder) F43.10 ; Panic disorder F41.0 ; MESERET (generalized anxiety disorder) F41.1 ; Mood disorder F39 and BMI 40.0-44.9, adult Z68.41 [facility] [address] [place] [address] 24977- 3368 Jul, Bipolar 1 disorder, depressed F31.9 ; PTSD (post-traumatic stress disorder) F43.10 and Panic attacks F41.0 [address] [place] [address] [id number] Jul, Bipolar 1 disorder, depressed F31.9 [address] [place] [address] [id number] Jul, Anxiety F41.9 ; COPD mixed type J44.9 ; Essential hypertension I10 ; Bipolar 1 disorder F31.9 ; High risk medication use Z79.899 ; BMI 40.0-44.9, adult Z68.41 and Coronary artery disease involving coronary bypass graft of agdaagux heart without angina pectoris I25.810 [facility] [address] [place] [address] [id number] 06 Jul, 2017 Chronic obstructive pulmonary disease with acute exacerbation J44.1 and Acute nasopharyngitis J00 [facility] [address] [facility] [id number][place] [id number] Jul, Anxiety F41.9 ; Mixed hyperlipidemia E78.2 and Bipolar 1 disorder F31.9 [facility] [address] [id number] [place] [address] Jun Bipolar 1 disorder F31.9 [facility] [address] [id number] [place] [address] Jun [facility] [address] [id number] [address] Jun, Anxiety F41.9 ; Elevated blood sugar R73.9 ; Mixed hyperlipidemia E78.2 ; COPD mixed type J44.9 ; Essential hypertension I10 ; Bipolar 1 disorder F31.9 ; Coronary artery disease involving coronary bypass graft of agdaagux heart without angina pectoris I25.810 ; High risk medication use Z79.899 ; Controlled substance agreement signed Z79.899 ; Elevated fasting glucose R73.01 ; Encounter for immunization Z23 and BMI 40.0-44.9, adult Z68.41 [facility] [id number] [place] [address] [id number] Jun, Elevated blood sugar R73.9 [address] [place] [address] [id number] Jun, [address] [place] [address] [id number] Jun, Bipolar 1 disorder F31.9 ; Obesity (BMI 30-39.9) E66.9 ; Coronary artery disease involving coronary bypass graft of agdaagux heart without angina pectoris I25.810 and Essential hypertension I10 [place] [address] [id number] [id number] Jun, Coronary artery disease involving coronary bypass graft of agdaagux heart without angina pectoris I25.810 ; Bipolar 1 disorder F31.9 ; Anxiety F41.9 ; Essential hypertension I10 ; COPD mixed type J44.9 and Mixed hyperlipidemia E78.2 [facility] [address] [id number] [id number] May, Severe single current episode of major depressive disorder, 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.2 ; Bipolar 1 disorder F31.9 ; Anxiety F41.9 ; PTSD (post -traumatic stress disorder) F43.10 ; Coronary artery disease involving coronary bypass graft of agdaagux heart without angina pectoris I25.810 ; Sleep apnea in adult G47.30 ; Essential hypertension I10 ; High risk medication use Z79.899 ; Obesity (BMI 30-39.9) E66.9 ; Encounter for therapeutic drug level monitoring Z51.81 and COPD mixed type J44.9 [place] [id number] [place] [address] [id number] May, Severe single current episode of major depressive disorder, 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.2 ; Bipolar 1 disorder F31.9 ; Anxiety F41.9 ; PTSD (post -traumatic stress disorder) F43.10 ; Mixed hyperlipidemia E78.2 ; Coronary artery disease involving coronary bypass graft of agdaagux heart without angina pectoris I25.810 ; Sleep apnea in adult G47.30 ; Essential hypertension I10 ; High risk medication use Z79.899 ; Controlled substance agreement signed Z79.899 ; Obesity (BMI 30-39.9) E66.9 ; Tobacco abuse Z72.0 ; Tobacco abuse counseling Z71.6 and COPD mixed type J44.9 [place] [id number] [place] [address] [id number] May, [facility] [id number] [place] [address] [id number]- 4820 Dec, [facility] [id number] [place] [address] 78172- 8566 Dec, [facility] [id number] [place] [address] [id number]- 2346 May, [facility] [id number] [place] [address] [id number]- 3111 May, [place] [id number] [place] [address] [id number] Dec, [facility] [id number] [place] [address] 72031- 1415 Dec, [address] [place] [id number] Dec, [facility] [place] [facility] [address] [id number] [place] [address]- 2546 Dec, [facility] [place] [facility] [address] [facility] [id number] [place] [address]- 2546 Dec, [facility] [place] [facility] [address] [facility] [id number] [place] [address]- 2546 Dec, [facility] [place] [facility] [address] [facility] [id number] [place] [address]- 2546 Nov, [facility] [place] [address] [id number] [place] [id number] Nov, [facility] [place] [address] [id number] [place] [id number] Nov, [facility] [place] [address] [facility] [id number] [place] [id number] Nov, [facility] [place] [facility] [address] [facility] [id number] [address] 2546 Nov, [facility] [place] [facility] [address] [facility] [id number] [place] [address]- 0206 Nov, [facility] [place] [facility] [address] [facility] [id number] [place] [address]- 8286 Nov, [facility] [place] [facility] [address] [facility] [id number] [place] [address] 2546 15 Nov, 2013 [facility] [place] [facility] [address] [facility] [id number] [place] [address]- 2546 Nov, [facility] [place] [facility] [address] [facility] [id number] [place] [address]- 2546 Nov, [facility] [place] [address] [id number] [place] [id number] Nov, [facility] [place] [address] [facility] [id number] [place] [id number] Oct, [facility] [place] [facility] [address] [facility] [id number] [place] [address]- 4030 Oct, [facility] [place] [address] [id number] [place] [id number] Oct, [facility] [place] [facility] [address] [facility] [id number] [place] [address]- 0946 Oct, [facility] [place] [facility] [address] [facility] [id number] [address]- 6976 Oct, [facility] [place] [address] [facility] [id number][place] [id number] Sep, [facility] [place] [facility] [address] [id number] [place] [address]- 4145 Sep, [facility] [place] [address] [facility] [id number], [place] [id number] Sep, [facility] [place] [facility] [address] [id number] [address]- 0520 Sep, [facility] [place] [facility] [address] [id number] [address]- 3154 Sep, [facility] [place] [facility] [address] [facility] [id number] [place] [address]- 0001 Sep, [facility] [place] [facility] [address] [id number] [address]- 8265 Aug, [facility] [place] [address] [id number][place] [id number] Aug, [facility] [place] [facility] [address] [id number] [address]- 9566 Aug, [facility] [place] [address] [facility] [id number][place] [id number] Jul, [facility] [place] [facility] [address] [id number] [place] [address]- 2714 Jul, [facility] [place] [address] [facility] [id number], [place] [id number] Jul, [facility] [place] [facility] [address] [id number] [address]- 5598 Jul, [facility] [place] [facility] [address] [facility] [id number] [place] [address]- 3179 May, [facility] [address] [facility] [id number] [place] [address]- 7212 Apr, [facility] [place] [facility] [address] [facility] [id number] [place] [address] 2548 Apr, [facility] [address] [facility] [id number] [place] [address]- 1612 Mar, [facility] [place] [address] [id number] [place] [id number] Feb, [facility] [place] [address] [id number] [place] [id number] Feb, [facility] [place] [address] [id number] [place] [id number] Feb, [facility] [address]00565100[place] [address]- 5000 Feb, [facility] [place] [facility] [address] [facility] [id number] [place] [address]- 6119 January, [facility] [address] [id number] [address]- 0261 January, [facility] [place] [address] [id number] [place] [id number] Dec, [facility] [address] [id number] [place] [id number] Dec, [facility] [place] [address] [id number], [place] [id number] Dec, [facility] [place] [address] [id number] [place] [id number] Dec, [facility] [address] [id number] [place] [id number] Dec, [facility] [address] [id number] [place] [id number] Dec, [facility] [place] [facility] [address] [id number] [address]- 2546 Dec, [facility] [place] [facility] [address]005[address]100[place] [address]- 2546 Dec, [facility] [address] [id number] [place] [id number] Nov, [facility] [address] [id number] [place] [id number] Nov, [facility] [place] [address] [facility] [id number] [place] [id number] Nov, [facility] [place] [facility] [address] [facility] [id number] [place] [address] 2546 Oct, [facility] [place] [facility] [address] [facility] [id number] [place] [address]- 2546 Oct, [facility] [place] [facility] [address] [facility] [id number] [place] [address]- 7246 Sep, [facility] [place] [facility] [address] [id number] [address]- 4066 Aug, [facility] [place] [facility] [address] [facility] [id number] [place] [address]- 8049 Aug, [facility] [place] [facility] [address] [facility] [id number] [place]- 6148 Aug, [facility] [place] [facility] [address] [facility] [id number] [place]47[place]- 0726 Aug, [facility] [place] [address] [facility] [id number][place] [id number] Aug, [facility] [place] [facility] [address] [facility] [id number] [place] [address]- 7858 Aug, [facility] [place] [facility] [address] [facility] [id number] [place] [address]- 6316 Jul, [facility] [place] [facility] [address] [facility] [id number] [place] [address]- 2196 Jul, [facility] [place] [facility] [address] [facility] [id number] [place] [address]- 7606 Jul, [facility] [place] [facility] [address] [facility] [id number] [place] [address]- 2546 Jul, [facility] [address] [id number] [place] [id number] Jun, [facility] [address] [id number] [place] [id number] Jun, [facility] [place] [facility] [address] [facility] [id number] [place] [address]- 2546 Jun, [facility] [address] [facility] [id number] [place] [id number] Apr, [facility] [place] [facility] [address] [facility] [id number] [place] [address] 2546 Apr, [facility] [place] [facility] [address] [id number] [place] [address]- 2546 Mar, [facility] [id number] [place] [id number] Feb, [facility] [id number] [place] [id number] Feb, [facility] [place] [facility] [address]00565100[place] [address]- 4739 Feb, [facility] [id number], [place] [id number] Feb, [facility] [place] [facility] [address]00565100[place] [address]- 4786 Feb, [facility] [place] [facility] [address]00565100[place] [address]- 4724 Feb, [facility] [place] [facility] [address] [facility] [id number] [place] [address]- 2546 Feb, [facility] [place] [facility] [address] [facility] [id number] [place] [address]- 6549 Feb, [facility] [address] [facility] [id number] [place] [id number] January, [facility] [address] [id number] [place] [id number] Dec, [facility] [place] [facility] [address]00565100[place] [address]- 3512 Dec, [facility] [address] [facility] [id number] [place] [address] 03880- 3256 Dec, [facility] [address] [id number] [place] [id number] Dec, [facility] [address] [facility] [id number] [address]- 1446 Dec, [facility] [address] [id number] [place] [id number] Dec, [facility] [address] [id number] [place] [id number] Nov, [facility] [address] [id number] [place] [id number] Nov, [facility] [address] [id number] [place] [id number] Nov, [facility] [address] [id number] [place] [id number] Nov, [facility] [address]00565100[place] [address]- 5820 Oct, [facility] [address] [id number] [place] [id number] Oct, [facility] [address] [id number] [place] [id number] Oct, [facility] [address] [id number] [place] [id number] Oct, [facility] [address] [id number] [place] [id number] Oct, [facility] [address] [id number] [place] [id number] Sep, [facility] [address] [id number] [place] [id number] Sep, [facility] [address] [facility] [id number] [place] [address] Sep, [facility] [id number] [place] [address] Sep, [facility] [place] [facility] [address] [id number] [place] [address] Sep, [facility] [place] [facility] [address] [id number] [place] [address] Sep, [facility] [place] [facility] [address] [id number] [place] [address] 30 Aug, 2011 [facility] [place] [facility] [address] [id number] [place] [address] Aug, [facility] [place] [facility] [address] [id number] [place] [address] Aug, [facility] [place] [facility] [address] [id number] [place] [address] Aug, [facility] [place] [facility] [address] [id number] [place] [address] Aug, [facility] [place] [facility] [address] [id number] [place] [address] Aug, [facility] [place] [facility] [address] [id number] [place] [address] Aug, [facility] [place] [facility] [address] [id number] [place] [address] Aug, [facility] [place] [facility] [address] [id number] [place] [address] Jun, [facility] [place] [facility] [address] [id number] [place] [address] 27 Jun, 2011 [facility] [place] [facility] [address] [id number] [place] [address] 19 Jun, 2011 [facility] [place] [facility] [address] [id number] [place] [address] 19 Jun, 2011 [facility] [place] [facility] [address] [id number] [place] [address] 14 Jun, 2011 [facility] [place] [facility] [address] [id number] [address] 13 Jun, 2011 [facility] [address] [facility] [id number] [place] [address] Jun, [facility] [address] [facility] [id number] [place] [address] Jun, [facility] [address] [facility] [id number] [place] [address] Jun, [facility] [address] [facility] [id number] [place] [address] 14 May, 2011 [facility] [id number] [place] [address] Apr, [facility] [address] [id number] [address] Feb, [facility] [id number] [place] [address] Dec, [facility] [id number] [address] Aug, [facility] [id number] [address] Aug, [facility] [id number] [id number] Aug, [facility] [id number] [address] Aug, [facility] [id number] [address] Jul, [facility] [id number] [address] Jun, [facility] [id number] [address] Jun, IMMUNIZATIONS No Known Immunizations SOCIAL HISTORY Never Assessed REASON FOR VISIT f/u PLAN OF CARE Activity Details Follow Up Next available Reason: VITAL SIGNS MEDICATIONS Unknown Medications RESULTS No Results PROCEDURES Procedure Date Ordered Result Body Site Psychotherapy, patient &/family, 45 minutes, established patient February 02, 2018 INSTRUCTIONS MEDICATIONS ADMINISTERED No Known Medications [...] Coronary atherosclerosis of unspecified type of vessel, agdaagux or graft Medical History Coronary atherosclerosis of unspecified type of vessel, agdaagux or graft Surgical History section x4 Surgical History CABG x3 Surgical History Left arm-Plate and screws placed Hospitalization History Surgery(s)/Childbirth(s) only
--- OUTSIDE RECORDS SUMMARY | 2019-02-02 13:58 | XMS REPORT ---
Author Author MAL SHARMA [facility] Address [address] [place] [address] Care Team Providers Care Welder Assistant Name Role Phone MAL SHARMA Unavailable PROBLEMS Type Condition ICD9-CM Code WWI41-DL Code Onset Dates Condition Status SNOMED Code Problem Chronic obstructive pulmonary disease with acute exacerbation J44.1 Active 576812392 Problem MESERET (generalized anxiety disorder) F41.1 Active 25699000 Problem Panic disorder F41.0 Active 802856878 Problem Morbid (severe) obesity due to excess calories E66.01 Active 46654804952964 Problem Body mass index (BMI) of 45.0-49.9 in adult Z68.42 Active 123845674 Problem Coronary artery disease involving white mountain coronary artery of white mountain heart without angina pectoris I25.10 Active 0808765157473 Problem Mood disorder F39 Active 27324626 Problem Bipolar disorder, in partial remission, most recent episode depressed F31.75 Active 36416170 Problem Claudication I73.9 Active 585243409 Problem Mixed hyperlipidemia E78.2 Active 163262019 Problem PTSD (post-traumatic stress disorder) F43.10 Active 62896276 Problem Sleep apnea in adult G47.30 Active 29641544 Problem COPD mixed type J44.9 Active 69292184 Problem Obesity (BMI 30-39.9) E66.9 Active 961160268 Problem Coronary artery disease involving coronary bypass graft of white mountain heart without angina pectoris I25.810 Active 368352066 Problem Bipolar 1 disorder F31.9 Active 520412785 Problem Essential hypertension I10 Active 50248894 ALLERGIES No Information ENCOUNTERS Encounter Location Date Diagnosis [facility] [id number], [place] [address] May, [facility] [id number], [place] [address] Apr, [facility] [id number] [place] [address] 88979- 4193 Apr, Bipolar 1 disorder, depressed F31.9 [place] [id number] [place] [address] 89057- 3969 Mar, Bipolar disorder, in partial remission, most recent episode depressed F31.75 ; MESERET (generalized anxiety disorder) F41.1 ; Panic disorder F41.0 and BMI 45.0-49.9, adult Z68.42 [facility] [id number] [place] [address] [id number] Mar, High risk medication use Z79.899 and Mixed hyperlipidemia E78.2 [id number] [place] [address] [phone] Mar, COPD mixed type J44.9 ; Essential hypertension I10 ; Sleep apnea in adult G47.30 ; Mixed hyperlipidemia E78.2 ; Morbid (severe) obesity due to excess calories E66.01 ; Body mass index (BMI) of 45.0-49.9 in adult Z68.42 ; Tobacco abuse Z72.0 ; Tobacco abuse counseling Z71.6 and BMI 45.0-49.9, adult Z68.42 [id number] [place] [address] 65993- 2690 Feb, Bipolar disorder, in partial remission, most recent episode depressed F31.75 ; MESERET (generalized anxiety disorder) F41.1 ; Panic disorder F41.0 and BMI 45.0-49.9, adult Z68.42 [place] [address] [place] [address] 28827- 1838 Feb, Bipolar 1 disorder, depressed F31.9 ; PTSD (post-traumatic stress disorder) F43.10 and Panic attacks F41.0 [place] [id number] [place] [address] 79462- 6668 Feb, High risk medication use Z79.899 [place] [id number] [place] [address] 71913- 6753 January, High risk medication use Z79.899 ; Bipolar disorder, in partial remission, most recent episode depressed F31.75 ; MESERET (generalized anxiety disorder) F41.1 ; Panic disorder F41.0 and BMI 45.0-49.9, adult Z68.42 [facility] [address], [place] [address] January, Bipolar 1 disorder, depressed F31.9 ; PTSD (post-traumatic stress disorder) F43.10 and Panic attacks F41.0 [facility] [id number] [place] [address] 66565- 7400 January, Bipolar 1 disorder, depressed F31.9 ; PTSD (post-traumatic stress disorder) F43.10 and Panic attacks F41.0 [facility] [address] [place] [address] 61549- 0602 Dec, BMI 45.0-49.9, adult Z68.42 ; Bipolar disorder, in partial remission, most recent episode depressed F31.75 ; MESERET (generalized anxiety disorder) F41.1 and Panic disorder F41.0 [facility] [address] [place] [address] 50633- 6711 Dec, Bipolar 1 disorder, depressed F31.9 ; PTSD (post-traumatic stress disorder) F43.10 and Panic attacks F41.0 [facility] [address] [place] [address] 64733- 7908 Nov, Bipolar disorder, in partial remission, most recent episode depressed F31.75 ; MESERET (generalized anxiety disorder) F41.1 and Panic disorder F41.0 [facility] [address], [place] [address]- 7[address] Nov, [facility] [id number] [place] [address] 52065- 6302 Nov, [facility] [address] [place] [address] 49568- 7899 Oct, BMI 45.0-49.9, adult Z68.42 ; Bipolar disorder, in partial remission, most recent episode depressed F31.75 ; MESERET (generalized anxiety disorder) F41.1 and Panic disorder F41.0 [facility] [id number] [id number] 23 Oct, 2017 BMI 45.0-49.9, adult Z68.42 ; Coronary artery disease involving white mountain coronary artery of white mountain heart without angina pectoris I25.10 ; Hx of CABG Z95.1 ; Dyspnea on exertion R06.09 ; Essential hypertension I10 ; Mixed hyperlipidemia E78.2 ; Claudication I73.9 and Tobacco use Z72.0 [facility] [address] [facility] [id number] [id number] 15 Oct, 2017 BMI 45.0-49.9, adult Z68.42 ; Bipolar 1 disorder, depressed F31.9 and Abscess L02.91 [place] [address] [place] [address] 54253- 8811 14 Oct, 2017 Bipolar 1 disorder, depressed F31.9 ; PTSD (post-traumatic stress disorder) F43.10 and Panic attacks F41.0 [place] [address], [place] [address] 5[address] Sep, BMI 40.0-44.9, adult Z68.41 ; Mood disorder F39 ; MESERET ( generalized anxiety disorder) F41.1 and Panic disorder F41.0 [place] [address] [place] [address] 47732- 0101 Sep, BMI 40.0-44.9, adult Z68.41 [place] [address] [place] [address] 48670- 2974 Sep, Bipolar 1 disorder, depressed F31.9 ; PTSD (post-traumatic stress disorder) F43.10 and Panic attacks F41.0 [place] [address] [place] [address] 38237- 9751 Aug, BMI 40.0-44.9, adult Z68.41 ; Mood disorder F39 ; MESERET ( generalized anxiety disorder) F41.1 and Panic disorder F41.0 [place] [address], [place] [address]- 74[address] Aug, Bipolar 1 disorder, depressed F31.9 ; PTSD (post-traumatic stress disorder) F43.10 and Panic attacks F41.0 [address] [place] [address] [id number] Aug, [address] [place] [address] [phone] Aug, COPD mixed type J44.9 [facility] [id number] [place] [address] 06487- 6947 Aug, [place] [address] [address]- 0258 Jul, PTSD (post-traumatic stress disorder) F43.10 ; Panic disorder F41.0 ; MESERET (generalized anxiety disorder) F41.1 ; Mood disorder F39 and BMI 40.0-44.9, adult Z68.41 [place] [id number] [place] [address] 01155- 5131 Jul, Bipolar 1 disorder, depressed F31.9 ; PTSD (post-traumatic stress disorder) F43.10 and Panic attacks F41.0 [address] [place] [address] [phone] Jul, Bipolar 1 disorder, depressed F31.9 [address] [place] [address] [phone] Jul, Anxiety F41.9 ; COPD mixed type J44.9 ; Essential hypertension I10 ; Bipolar 1 disorder F31.9 ; High risk medication use Z79.899 ; BMI 40.0-44.9, adult Z68.41 and Coronary artery disease involving coronary bypass graft of white mountain heart without angina pectoris I25.[address] [place] [address] [phone] Jul, Chronic obstructive pulmonary disease with acute exacerbation J44.1 and Acute nasopharyngitis J00 [address] [place] [address] [id number] Jul, Anxiety F41.9 ; Mixed hyperlipidemia E78.2 and Bipolar 1 disorder F31.9 [facility] [address] [id number] [place] [address] Jun Bipolar 1 disorder F31.9 [facility] [address] [id number] [place] [address] [id number] [place] [address] [phone] Jun, Anxiety F41.9 ; Elevated blood sugar R73.9 ; Mixed hyperlipidemia E78.2 ; COPD mixed type J44.9 ; Essential hypertension I10 ; Bipolar 1 disorder F31.9 ; Coronary artery disease involving coronary bypass graft of white mountain heart without angina pectoris I25.810 ; High risk medication use Z79.899 ; Controlled substance agreement signed Z79.899 ; Elevated fasting glucose R73.01 ; Encounter for immunization Z23 and BMI 40.0-44.9, adult Z68.41 [id number] [place] [address] [id number] Jun, Elevated blood sugar R73.9 [id number] [place] [address] [id number] Jun, [address] [id number] [place] [address] [phone] Jun, Bipolar 1 disorder F31.9 ; Obesity (BMI 30-39.9) E66.9 ; Coronary artery disease involving coronary bypass graft of white mountain heart without angina pectoris I25.810 and Essential hypertension I10 [address] [place] [address] [phone] Jun, Coronary artery disease involving coronary bypass graft of white mountain heart without angina pectoris I25.810 ; Bipolar 1 disorder F31.9 ; Anxiety F41.9 ; Essential hypertension I10 ; COPD mixed type J44.9 and Mixed hyperlipidemia E78.2 [id number] [place] [address] [phone] May, Severe single current episode of major depressive disorder, 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.2 ; Bipolar 1 disorder F31.9 ; Anxiety F41.9 ; PTSD (post -traumatic stress disorder) F43.10 ; Coronary artery disease involving coronary bypass graft of white mountain heart without angina pectoris I25.810 ; Sleep apnea in adult G47.30 ; Essential hypertension I10 ; High risk medication use Z79.899 ; Obesity (BMI 30-39.9) E66.9 ; Encounter for therapeutic drug level monitoring Z51.81 and COPD mixed type J44.9 [facility] [address] [place] [address] [phone] May, Severe single current episode of major depressive disorder, 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.2 ; Bipolar 1 disorder F31.9 ; Anxiety F41.9 ; PTSD (post -traumatic stress disorder) F43.10 ; Mixed hyperlipidemia E78.2 ; Coronary artery disease involving coronary bypass graft of white mountain heart without angina pectoris I25.810 ; Sleep apnea in adult G47.30 ; Essential hypertension I10 ; High risk medication use Z79.899 ; Controlled substance agreement signed Z79.899 ; Obesity (BMI 30-39.9) E66.9 ; Tobacco abuse Z72.0 ; Tobacco abuse counseling Z71.6 and COPD mixed type J44.9 [facility] [address] [place] [address] [phone] May, [facility] [id number] [place] [address] [phone] Dec, [facility] [address] [place] [address] [phone]- 1144 Dec, [facility] [id number] [place] [address] [id number]- 8232 May, [facility] [id number] [place] [address] 48655 2546 May, [facility] [address] [place] [address] [phone] Dec, [facility] [id number] [place] [address] 10136- 3196 Dec, [facility] [id number] [place] [address] [phone] Dec, [facility] [id number], [place] [address] 8436 Dec, [facility] [place] [facility] [address] [facility] [id number] [place] [address]- 4576 Dec, [facility] [place] [facility] [address] [facility] [id number] [place] [address]- 2546 Dec, [facility] [place] [facility] [address] [facility] [id number], [place] [address]- 0477 Nov, [facility] [address] [id number] [place] [phone] Nov, [facility] [address] [id number] [place] [id number] Nov, [facility] [address] [facility] [id number] [place] [id number] Nov, [facility] [place] [facility] [address] [facility] [id number], [place] [address]- 1276 Nov, [facility] [place] [facility] [address] [facility] [id number], [place] [address]- 6228 Nov, [facility] [place] [facility] [address] [facility] [id number] [place] [address]- 3106 Nov, [facility] [place] [facility] [address] [facility] [id number], [place] [address]- 0266 15 Nov, 2013 [facility] [place] [facility] [address] [facility] [id number], [place] [address]- 4830 Nov, [facility] [place] [facility] [address] [facility] [id number], [place] [address]- 2542 Nov, [facility] [address] [id number] [place] [id number] Nov, [facility] [address] [facility] [id number] [place] [id number] Oct, [facility] [place] [facility] [address] [facility] [id number] [place] [address]- 2546 Oct, [facility] [address] [facility] [id number] [place] [id number] Oct, [facility] [address] [facility] [id number] [place] [address]- 4636 Oct, [facility] [address] [facility] [id number], [place] [address]- 2546 Oct, [facility] [address] [facility] [id number][place] [phone] Sep, [facility] [place] [facility] [address], [place] [address]- 7106 Sep, [facility] [address] [facility] [id number][place] [id number] Sep, [facility] [place] [facility] [address] [place] [address] 2546 Sep, [facility] [address] [place] [address]- 1516 Sep, [facility] [place] [facility] [address], [place] [address]- 4606 Sep, [facility] [id number], [place] [address]- 3390 Aug, [facility] [address] [facility] [id number][place] [id number] Aug, [facility] [id number], [place] [address]- 2726 Aug, [facility] [id number] [id number] Jul, [facility] [place] [facility] [address] [facility] [id number], [place] [address]- 2546 Jul, [facility] [address] [facility] [id number][place] [id number] Jul, [facility] [place] [facility] [address] [facility] [id number], [place] [address] 2546 Jul, [facility] [place] [facility] [id number], [place] [address]- 8886 May, [facility] [place] [facility] [address] [facility] [id number], [place] [address]- 1120 Apr, [facility] [place] [facility] [address] [facility] [id number], [place] [address]- 6972 Apr, [facility] [place] [facility] [address] [facility] [id number], [place] [address]- 3161 Mar, [facility] [address] [id number] [place] [id number] Feb, [facility] [address] [id number][place] [address] Feb, [facility] [address] [id number] [place] [id number] Feb, [facility] [place] [facility] [address], [place] [address]- 4161 Feb, [facility] [address], [place] [address]- 7478 January, [facility] [address], [place] [address]- 6614 January, [facility] [address] [id number] [place] [id number] Dec, [facility] [address] [id number] [place] [id number] Dec, [facility] [address] [id number] [place] [id number] Dec, [facility] [address] [id number][place] [id number] Dec, [facility] [address] [id number] [place] [id number] Dec, [facility] [address] [id number] [place] [id number] Dec, [facility] [place] [facility] [address] [facility] [id number], [place] [address]- 7228 Dec, [facility] [place] [facility] [address] [facility] [id number], [place] [address]- 5118 Dec, [facility] [address] [id number] [place] [id number] Nov, [facility] [address] [id number] [place] [id number] Nov, [facility] [address] [facility] [id number] [place] [id number] Nov, [facility] [address] [facility] [id number], [place] [address]- 2546 Oct, [facility] [place] [facility] [address] [facility] [id number], [place] [address]- 8516 Oct, [facility] [place] [facility] [address] [facility] [id number], [place] [address]- 4823 Sep, [facility] [place] [facility] [id number], [place] [address]- 8606 Aug, [facility] [address], [place] [address]- 2940 Aug, [facility] [place] [facility] [id number]- 9522 Aug, [facility] [place] [facility] [address]- 3785 Aug, [facility] [address] [id number] [id number] Aug, [facility] [place] [facility] [id number], [place] [address]- 6001 Aug, [facility] [place] [facility] [address] [facility] [id number], [place] [address]- 9816 Jul, [facility] [place] [facility] [address] [facility] [id number], [place] [address]- 7996 Jul, [facility] [place] [facility] [address] [facility] [id number], [place] [address]- 6496 Jul, [facility] [place] [facility] [id number], [place] [address]- 7656 Jul, [facility] [address] [id number] [place] [id number] Jun, [facility] [address] [id number] [place] [id number] Jun, [facility] [place] [facility] [address] [id number] [place] [address] 2546 Jun, [facility] [address] [id number] [place] [id number] Apr, [facility] [place] [facility] [address] [facility] [id number] [place] [address]- 6556 Apr, [facility] [place] [facility] [address] [facility] [id number] [place] [address] 2546 Mar, [facility] [address] [id number] [place] [id number] Feb, [facility] [address] [facility] [id number] [place] [id number] Feb, [facility] [place] [facility] [address], [place] [address]- 1885 Feb, [facility] [address] [facility] [id number], [place] [id number] Feb, [facility] [place] [facility] [address], [place] [address]- 1717 Feb, [facility] [place] [facility] [address], [place] [address]- 5240 Feb, [facility] [place] [facility] [address], [place] [address]- 5881 Feb, [facility] [place] [facility] [address] [facility] [id number], [place] [address]- 2130 Feb, [facility] [address] [id number] [place] [id number] January, [facility] [address] [facility] [id number] [place] [id number] Dec, [facility] [place] [facility] [address], [place] [address]- 8823 Dec, [facility] [place] [facility] [address] [facility] [id number], [place] [address]- 2373 Dec, [facility] [address] [id number] [place] [id number] Dec, [facility] [address] [facility] [id number], [place] [address]- 9771 Dec, [facility] [address] [id number] [place] [id number] Dec, [facility] [address] [id number] [place] [id number] Nov, [facility] [address] [id number] [place] [id number] Nov, [facility] [address] [id number] [place] [id number] Nov, [facility] [address] [id number] [place] [id number] Nov, [facility] [address], [place] [address]- 7546 Oct, [facility] [address] [id number] [place] [id number] Oct, [facility] [address] [id number] [place] [id number] Oct, [facility] [address] [id number] [place] [id number] Oct, [facility] [address] [id number] [place] [id number] Oct, [facility] [address] [id number] [place] [id number] Sep, [facility] [address] [id number] [place] [id number] Sep, [facility] [address], [place] [address]- 6972 Sep, [facility] [address], [place] [address]- 7623 Sep, [facility] [address], [place] [address]- 7478 Sep, [facility] [place] [facility] [address] [id number] [place] [address]- 8095 Sep, [facility] [place] [facility] [address] [id number] [place] [address]- 4821 30 Aug, 2011 [facility] [place] [facility] [address] [id number] [place] [address]- 5876 Aug, [facility] [place] [facility] [address] [id number] [place] [address]- 8573 Aug, [facility] [place] [facility] [address] [id number] [place] [address] Aug, [facility] [place] [facility] [address] [id number] [place] [address] Aug, [facility] [place] [facility] [address] [facility] [id number] [place] [address] Aug, [facility] [place] [facility] [address] [id number] [place] [address] Aug, [facility] [place] [facility] [address] [facility] [id number] [place] [address] Aug, [facility] [place] [facility] [address] [facility] [id number] [place] [address] Jun, [facility] [place] [facility] [address] [id number], [place] [address] 27 Jun, 2011 [facility] [place] [facility] [address] [id number], [place] [address] 19 Jun, 2011 [facility] [place] [facility] [address] [id number] [place] [address] 19 Jun, 2011 [facility] [place] [facility] [address] [facility] [id number] [place] [address] 14 Jun, 2011 [facility] [place] [facility] [address] [facility] [id number] [place] [address] 13 Jun, 2011 [facility] [place] [facility] [id number] [address] 12 Jun, 2011 [facility] [id number] [address] [address] Jun, [facility] [id number] [address] [address] Jun, [facility] [id number] [address] 14 May, 2011 [facility] [address] [id number] [address] Apr, [facility] [id number] [address] Feb, [facility] [id number] [place] [address] Dec, [facility] [id number] [place] [address] Aug, [facility] [id number] [place] [address] Aug, [facility] [id number] [place] [address] Aug, [facility] [id number] [address] Aug, [facility] [id number] [place] [address] Jul, [facility] [address] [id number] [address] Jun, [facility] [id number], [place] [address], IMMUNIZATIONS No Known Immunizations SOCIAL HISTORY Never Assessed REASON FOR VISIT BH f/u PLAN OF CARE Activity Details Follow Up Next available Reason: VITAL SIGNS MEDICATIONS Unknown Medications RESULTS No Results PROCEDURES Procedure Date Ordered Result Body Site Psychotherapy, patient &/family, 30 minutes, established patient January 19, 2018 INSTRUCTIONS MEDICATIONS ADMINISTERED No Known Medications [...] Coronary atherosclerosis of unspecified type of vessel, [place] or graft Medical History Coronary atherosclerosis of unspecified type of vessel, [place] or graft Surgical History section x4 Surgical History CABG x3 Surgical History Left arm-Plate and screws placed Hospitalization History Surgery(s)/Childbirth(s) only
--- OUTSIDE RECORDS SUMMARY | 2019-02-02 13:58 | XMS REPORT ---
Author Author DEANA KEVON [facility] Address [address] [place] [address] Care Team Providers Care Beading Installer Name Role Phone ANNIMARILYN KEVON Unavailable PROBLEMS Type Condition ICD9-CM Code AEU42-ID Code Onset Dates Condition Status SNOMED Code Problem Chronic obstructive pulmonary disease with acute exacerbation J44.1 Active 558575295 Problem MESERET (generalized anxiety disorder) F41.1 Active 35849016 Problem Panic disorder F41.0 Active 920683843 Problem Morbid (severe) obesity due to excess calories E66.01 Active 32548709206504 Problem Body mass index (BMI) of 45.0-49.9 in adult Z68.42 Active 673796090 Problem 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.10 Active 7163632887064 Problem Mood disorder F39 Active 65441729 Problem Bipolar disorder, in partial remission, most recent episode depressed F31.75 Active 52242924 Problem Claudication I73.9 Active 268157438 Problem Mixed hyperlipidemia E78.2 Active 525010208 Problem PTSD (post-traumatic stress disorder) F43.10 Active 06245066 Problem Sleep apnea in adult G47.30 Active 01033301 Problem COPD mixed type J44.9 Active 78967290 Problem Obesity (BMI 30-39.9) E66.9 Active 135458639 Problem Coronary artery disease involving coronary bypass graft of washoe heart without angina pectoris I25.810 Active 278864280 Problem Bipolar 1 disorder F31.9 Active 703339178 Problem Essential hypertension I10 Active 45983499 ALLERGIES Substance Reaction Event Type Date Status Penicillin V Potassium Swelling/hives Drug Allergy Dec, Active Abilify dizziness Drug Allergy Dec, Active ENCOUNTERS Encounter Location Date Diagnosis [facility] [address] [facility] [id number] [address] [address] May, [facility] [address] [address] Apr, [place] [address] [address] Apr, [place] [address] [address] Mar, Bipolar disorder, in partial remission, most recent episode depressed F31.75 ; MESERET (generalized anxiety disorder) F41.1 ; Panic disorder F41.0 and BMI 45.0-49.9, adult Z68.42 [facility] [address] [id number] 16 Mar, 2018 High risk medication use Z79.899 and Mixed hyperlipidemia E78.2 [facility] [address] [place] [address] [id number] Mar, COPD mixed type J44.9 ; Essential hypertension I10 ; Sleep apnea in adult G47.30 ; Mixed hyperlipidemia E78.2 ; Morbid (severe) obesity due to excess calories E66.01 ; Body mass index (BMI) of 45.0-49.9 in adult Z68.42 ; Tobacco abuse Z72.0 ; Tobacco abuse counseling Z71.6 and BMI 45.0-49.9, adult Z68.42 [place] [address] [place] [address]17- 9635 Feb, Bipolar disorder, in partial remission, most recent episode depressed F31.75 ; MESERET (generalized anxiety disorder) F41.1 ; Panic disorder F41.0 and BMI 45.0-49.9, adult Z68.42 [place] [address] [address] Feb, Bipolar 1 disorder, depressed F31.9 ; PTSD (post-traumatic stress disorder) F43.10 and Panic attacks F41.0 [place] [address]00565100[place] [address] Feb, High risk medication use Z79.899 [place] [address] [place] [id number] [place] [address] 86400- 2024 January, High risk medication use Z79.899 ; Bipolar disorder, in partial remission, most recent episode depressed F31.75 ; MESERET (generalized anxiety disorder) F41.1 ; Panic disorder F41.0 and BMI 45.0-49.9, adult Z68.42 [facility] [address] [place] [address] 98833- 4941 January, Bipolar 1 disorder, depressed F31.9 ; PTSD (post-traumatic stress disorder) F43.10 and Panic attacks F41.0 [place] [address] [place] [id number] [place] [address] 68192- 1605 January, Bipolar 1 disorder, depressed F31.9 ; PTSD (post-traumatic stress disorder) F43.10 and Panic attacks F41.0 [place] [address] [place] [id number] [place] [address] 79406- 4908 Dec, BMI 45.0-49.9, adult Z68.42 ; Bipolar disorder, in partial remission, most recent episode depressed F31.75 ; MESERET (generalized anxiety disorder) F41.1 and Panic disorder F41.0 [place] [address] [place] [id number] [place] [address] 82188- 8385 Dec, Bipolar 1 disorder, depressed F31.9 ; PTSD (post-traumatic stress disorder) F43.10 and Panic attacks F41.0 [place] [address] [place] [address] 61623- 8565 Nov, Bipolar disorder, in partial remission, most recent episode depressed F31.75 ; MESERET (generalized anxiety disorder) F41.1 and Panic disorder F41.0 [facility] [address] [place] [address] 89122- 9921 Nov, [facility] [address] [place] [id number] [place] [address] 22570- 2101 Nov, [facility] [address] [place] [address] [id number] [place] [address] 50104- 4009 Oct, BMI 45.0-49.9, adult Z68.42 ; Bipolar disorder, in partial remission, most recent episode depressed F31.75 ; MESERET (generalized anxiety disorder) F41.1 and Panic disorder F41.0 [address] [id number] [place] [id number] 23 Oct, 2017 BMI 45.0-49.9, adult Z68.42 ; 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.10 ; Hx of CABG Z95.1 ; Dyspnea on exertion R06.09 ; Essential hypertension I10 ; Mixed hyperlipidemia E78.2 ; Claudication I73.9 and Tobacco use Z72.0 [facility] [address] [facility] [id number][place] [id number] 15 Oct, 2017 BMI 45.0-49.9, adult Z68.42 ; Bipolar 1 disorder, depressed F31.9 and Abscess L02.91 [facility] [address] [place] [address] 44130- 3249 14 Oct, 2017 Bipolar 1 disorder, depressed F31.9 ; PTSD (post-traumatic stress disorder) F43.10 and Panic attacks F41.0 [place] [address] [place] [address] 66400- 3280 Sep, BMI 40.0-44.9, adult Z68.41 ; Mood disorder F39 ; MESERET ( generalized anxiety disorder) F41.1 and Panic disorder F41.0 [facility] [address] [place] [address] 87976- 2338 Sep, BMI 40.0-44.9, adult Z68.41 [facility] [address] [place] [address] 29011- 1340 Sep, Bipolar 1 disorder, depressed F31.9 ; PTSD (post-traumatic stress disorder) F43.10 and Panic attacks F41.0 [facility] [address] [place] [address] 88196- 9195 Aug, BMI 40.0-44.9, adult Z68.41 ; Mood disorder F39 ; MESERET ( generalized anxiety disorder) F41.1 and Panic disorder F41.0 [facility] [address]00565100[place] [address] Aug, Bipolar 1 disorder, depressed F31.9 ; PTSD (post-traumatic stress disorder) F43.10 and Panic attacks F41.0 [facility] [id number][place] [id number] Aug, [facility] [address] [place] [id number] [place] [address] [id number] Aug, COPD mixed type J44.9 [facility] [address] [place] [id number] [place] [address] 25961- 4342 Aug, [facility] [address] [place] [id number] [place] [address] 92393- 0740 30 Jul, 2017 PTSD (post-traumatic stress disorder) F43.10 ; Panic disorder F41.0 ; MESERET (generalized anxiety disorder) F41.1 ; Mood disorder F39 and BMI 40.0-44.9, adult Z68.41 [facility] [address] [address] Jul, Bipolar 1 disorder, depressed F31.9 ; PTSD (post-traumatic stress disorder) F43.10 and Panic attacks F41.0 [address] [place] [address] [id number] Jul, Bipolar 1 disorder, depressed F31.[address] [place] [address] [id number] Jul, Anxiety F41.9 ; COPD mixed type J44.9 ; Essential hypertension I10 ; Bipolar 1 disorder F31.9 ; High risk medication use Z79.899 ; BMI 40.0-44.9, adult Z68.41 and Coronary artery disease involving coronary bypass graft of washoe heart without angina pectoris I25.810 [facility] [address] [id number] 06 Jul, 2017 Chronic obstructive pulmonary disease with acute exacerbation J44.1 and Acute nasopharyngitis J00 [facility] [address] [place] [address] [id number] [id number] Jul, Anxiety F41.9 ; Mixed hyperlipidemia E78.2 and Bipolar 1 disorder F31.9 [facility] [address] [id number] [place] [address] Jun Bipolar 1 disorder F31.9 [facility] [address] [id number] [place] [address] Jun [place] [address] [place] [id number] [place] [address] [id number] Jun, Anxiety F41.9 ; Elevated blood sugar R73.9 ; Mixed hyperlipidemia E78.2 ; COPD mixed type J44.9 ; Essential hypertension I10 ; Bipolar 1 disorder F31.9 ; Coronary artery disease involving coronary bypass graft of washoe heart without angina pectoris I25.810 ; High risk medication use Z79.899 ; Controlled substance agreement signed Z79.899 ; Elevated fasting glucose R73.01 ; Encounter for immunization Z23 and BMI 40.0-44.9, adult Z68.41 [facility] [address] [place] [address] [id number] Jun, Elevated blood sugar R73.9 [address] [place] [address] [id number] Jun, [place] [id number] [place] [address] [id number] Jun, Bipolar 1 disorder F31.9 ; Obesity (BMI 30-39.9) E66.9 ; Coronary artery disease involving coronary bypass graft of washoe heart without angina pectoris I25.810 and Essential hypertension I10 [facility] [address] [id number] Jun, Coronary artery disease involving coronary bypass graft of washoe heart without angina pectoris I25.810 ; Bipolar 1 disorder F31.9 ; Anxiety F41.9 ; Essential hypertension I10 ; COPD mixed type J44.9 and Mixed hyperlipidemia E78.2 [facility] [address] [place] [id number] [id number] May, Severe single current episode of major depressive disorder, 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.2 ; Bipolar 1 disorder F31.9 ; Anxiety F41.9 ; PTSD (post -traumatic stress disorder) F43.10 ; Coronary artery disease involving coronary bypass graft of washoe heart without angina pectoris I25.810 ; Sleep apnea in adult G47.30 ; Essential hypertension I10 ; High risk medication use Z79.899 ; Obesity (BMI 30-39.9) E66.9 ; Encounter for therapeutic drug level monitoring Z51.81 and COPD mixed type J44.9 [facility] [address] [place] [id number] [place] [address] [id number] May, Severe single current episode of major depressive disorder, 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.2 ; Bipolar 1 disorder F31.9 ; Anxiety F41.9 ; PTSD (post -traumatic stress disorder) F43.10 ; Mixed hyperlipidemia E78.2 ; Coronary artery disease involving coronary bypass graft of washoe heart without angina pectoris I25.810 ; Sleep apnea in adult G47.30 ; Essential hypertension I10 ; High risk medication use Z79.899 ; Controlled substance agreement signed Z79.899 ; Obesity (BMI 30-39.9) E66.9 ; Tobacco abuse Z72.0 ; Tobacco abuse counseling Z71.6 and COPD mixed type J44.9 [place] [id number] [place] [address] [id number] May, [facility] [address] [id number]- 3409 Dec, [facility] [address] [place] [id number] [place] [address] 29060- 1098 Dec, [facility] [address] [id number] 5751 May, [facility] [address] [place] [id number] [place] [address] 03205- 2342 May, [place] [id number] [place] [address] [id number] Dec, [facility] [address] [place] [id number] [place] [address] 93020- 6099 Dec, [facility] [address] [id number] Dec, [facility] [place] [facility] [address] [id number] [place] [address]- 3236 Dec, [facility] [place] [facility] [address] [facility] [id number] [place] [address]- 2546 Dec, [facility] [place] [facility] [address] [facility] [id number] [place] [address]- 2546 Dec, [facility] [place] [facility] [address] [facility] [id number] [place] [address]- 2546 Nov, [facility] [address] [id number] [place] [id number] Nov, [facility] [address] [id number] [place] [id number] Nov, [facility] [address] [id number] [place] [id number] Nov, [facility] [place] [facility] [address] [facility] [id number] [place] [address]- 4386 Nov, [facility] [place] [facility] [address] [facility] [id number] [place] [address]- 4894 Nov, [facility] [place] [facility] [address] [facility] [id number] [place] [address]- 9656 Nov, [facility] [place] [facility] [address] [facility] [id number] [address]- 6816 15 Nov, 2013 [facility] [place] [facility] [address] [facility] [id number] [address]- 5416 14 Nov, 2013 [facility] [place] [facility] [address] [id number] [place] [address]- 4706 Nov, [facility] [address] [id number] [place] [id number] Nov, [facility] [address] [id number] [place] [id number] Oct, [facility] [place] [facility] [address] [facility] [id number] [place] [address] 2546 Oct, [facility] [address] [facility] [id number][place] [id number] Oct, [facility] [place] [facility] [address] [facility] [id number] [address]- 7593 Oct, [facility] [place] [facility] [address] [facility] [id number] [address]- 4146 Oct, [facility] [address] [place] [id number][place] [id number] Sep, [facility] [place] [facility] [address] [facility] [id number], [place]6716- 4432 Sep, [facility] [address] [facility] [id number][place] [id number] Sep, [facility] [place] [facility] [address]100[place] [address]- 5921 Sep, [facility] [place] [facility] [address]100[place] [address]- 9181 Sep, [facility] [place] [facility] [address]005[address]100[place], [place] [address]- 8108 Sep, [facility] [place] [facility] [address], [place] [address]- 2570 Aug, [facility] [id number], [place] [id number] Aug, [facility] [place] [facility] [address] [place] [id number] [address]- 9396 Aug, [facility] [id number], [place] [id number] Jul, [facility] [place] [facility] [address] [facility] [id number] [address]- 9988 Jul, [facility] [address] [facility] [id number], [place] 995552476 Jul, [facility] [place] [facility] [address] [place] [id number] [address]- 8658 Jul, [facility] [place] [facility] [address] [address]- 0214 May, [facility] [address] [facility] [id number] [address]- 8009 Apr, [facility] [place] [facility] [address] [place] [address] [id number] [address]- 4234 Apr, [facility] [address] [address] [id number] [address]- 3598 Mar, [facility] [address] [id number], [place] [id number] Feb, [facility] [address] [id number] [place] [id number] Feb, [facility] [address] [facility] [id number], [place] [id number] Feb, [facility] [address]005[address]100[place] [address]- 8197 Feb, [facility] [address]100[place] [address]- 5814 January, [facility] [address] [place] [address] [id number] [address]- 4058 January, [facility] [address] [id number], [place] [id number] Dec, [facility] [address] [id number], [place] 192867481 Dec, [facility] [address] [id number], [place] 319689115 Dec, [facility] [address] [id number], [place] 380128268 Dec, [facility] [address] [id number] [place] [id number] Dec, [facility] [address] [facility] [id number], [place] 821522406 Dec, [facility] [place] [facility] [address] [place] [id number] [address]- 4404 Dec, [facility] [place] [facility] [address] [address]- 2546 Dec, [facility] [address] [id number] [place] [id number] Nov, [facility] [address] [id number] [place] 782044201 Nov, [facility] [address] [id number] [place] [id number] Nov, [facility] [place] [facility] [address] [facility] [id number] [place] [address]- 2546 Oct, [facility] [place] [facility] [address] [facility] [id number] [place] [address]- 2546 Oct, [facility] [place] [facility] [address] [facility] [id number] [place] [address]- 2546 Sep, [facility] [place] [facility] [address] [place] [address] [id number] [address]- 8546 Aug, [facility] [place] [facility] [address] [facility] [id number][place] [address]- 4486 Aug, [facility] [place] [facility] [address] [facility] [id number] [address]- 1446 Aug, [facility] [place] [facility] [address] [id number] [address]- 6766 Aug, [facility] [address] [facility] [id number] [place] [id number] Aug, [facility] [place] [facility] [address] [facility] [id number] [address]- 9226 Aug, [facility] [place] [facility] [address] [facility] [id number] [address]- 2546 Jul, [facility] [place] [facility] [address] [facility] [id number] [address]- 8046 Jul, [facility] [place] [facility] [address] [facility] [id number][place] [address]- 2546 Jul, [facility] [place] [facility] [address] [facility] [id number][place] [address]- 2546 Jul, [facility] [address] [id number] [place] [id number] Jun, [facility] [address] [facility] [id number] [place] [id number] Jun, [facility] [place] [facility] [address] [facility] [id number] [address]- 2546 Jun, [facility] [address] [facility] [id number] [place] [id number] Apr, [facility] [place] [facility] [address] [facility] [id number][place] [address]- 2546 Apr, [facility] [place] [facility] [address] [facility] [id number], [place] [address]- 2546 Mar, [facility] [address] [facility] [id number], [place] 595331714 Feb, [facility] [address] [facility] [id number], [place] [id number] Feb, [facility] [place] [facility] [address] [facility] [id number][place] [address] 2546 Feb, [facility] [address] [facility] [id number], [place] 349737873 Feb, [facility] [place] [facility] [address]00565100[place] [address]- 2106 Feb, [facility] [place] [facility] [address]00565100[place], [place] [address]- 4986 Feb, [facility] [place] [facility] [address]00565100[place] [address]- 2546 Feb, [facility] [place] [facility] [address] [facility] [id number] [address]- 0316 Feb, [facility] [address] [facility] [id number], [place] [id number] January, [facility] [address] [facility] [id number], [place] [id number] Dec, [facility] [place] [facility] [address]00565100[place] [address]- 9846 Dec, [facility] [address] [facility] [id number][place] [address]- 1889 Dec, [facility] [address] [id number] [place] [id number] Dec, [facility] [address] [facility] [id number][place] [address]- 9141 Dec, [facility] [address] [id number] [place] [id number] Dec, [facility] [address] [id number] [place] [id number] Nov, [facility] [address] [id number] [place] [id number] Nov, [facility] [address] [id number] [place] [id number] Nov, [facility] [address] [id number] [place] [id number] Nov, [facility] [address]00565100[place] [address]- 0586 Oct, [facility] [address] [id number] [place] [id number] Oct, [facility] [address] [id number] [place] [id number] Oct, [facility] [address] [id number] [place] [id number] Oct, [facility] [address] [id number] [place] [id number] Oct, [facility] [address] [id number], [place] [id number] Sep, [facility] [address] [id number] [place] [id number] Sep, [facility] [address] [facility] [id number][place] [address]- 2219 Sep, [facility] [address]00565100[place] 59020744- 7764 Sep, [facility] [address] [id number] [place] [address]- 2428 Sep, [facility] [place] [facility] [address] [id number] [place] [address]- 4301 Sep, [facility] [place] [facility] [address] [id number] [place] [address]- 7647 Aug, [facility] [place] [facility] [address] [id number] [place] [address] Aug, [facility] [address] [id number] [place] [address] Aug, [facility] [place] [facility] [address] [id number] [place] [address] Aug, [facility] [address] [id number] [place] [address] Aug, [facility] [place] [facility] [address] [id number] [place] [address] Aug, [facility] [place] [facility] [address] [id number] [place] [address] Aug, [facility] [place] [facility] [address] [id number] [place] [address] Aug, [facility] [place] [facility] [address] [id number] [place] [address] Jun, [facility] [place] [facility] [address] [id number] [address] 27 Jun, 2011 [facility] [place] [facility] [address] [id number] [place] [address] Jun, [facility] [place] [facility] [address] [id number] [place] [address] 19 Jun, 2011 [facility] [place] [facility] [address] [id number] [address] 14 Jun, 2011 [facility] [place] [facility] [address] [id number], [place] [address] Jun, [facility] [id number] [address] Jun, [facility] [id number] Jun, [facility] [id number] [address] Jun, [facility] [address] [id number] [address] 14 May, 2011 [facility] [id number] [place] [address] Apr, [facility] [id number] [address] Feb, [facility] [id number] [place] [address] Dec, [facility] [id number] [address] Aug, [facility] [id number] [address] Aug, [facility] [id number] [address] Aug, [facility] [id number] [address] Aug, [facility] [address] [id number] [address] Jul, [facility] [id number] [address] Jun, [facility] [id number] [address] Jun, IMMUNIZATIONS No Known Immunizations SOCIAL HISTORY Never Assessed REASON FOR VISIT TONY tong/Lavinia PLAN OF CARE Activity Details Follow Up 4 Weeks Reason: VITAL SIGNS Height 59 in 2018-01-13 Weight 232.5 lbs 2018-01-13 Heart Rate 80 bpm 2018-01-13 Respiratory Rate 22 2018-01-13 BMI 46.95 kg/m2 2018-01-13 Blood pressure systolic 140 mmHg 2018-01-13 Blood pressure diastolic 78 mmHg 2018-01-13 MEDICATIONS Medication Instructions Dosage Frequency Start Date End Date Duration Status Singulair 10 MG Orally Once a day 1 tablet 24h Active Alprazolam 0.5 MG Orally Three times a day as needed for anxeity 1 tablet 30 days Active Losartan Potassium-HCTZ 50-12.5 MG TAKE ONE (1) TABLET BY MOUTH TWICE DAILY... Active Zyrtec Allergy 10 MG Orally Once a day 1 tablet 24h Active Xanax 0.5 MG Orally Three times a day as needed 1 tablet Dec, 30 days Active Symbicort 160-4.5 MCG/ACT Inhalation Twice a day 2 puffs 12h 0 Active Albuterol Sulfate (2.5 MG/3ML) 0.083% Inhalation Three times a day 3 ml 8h Active [place] Carbonate 300 MG Orally daily 2 capsules in morning and one at night 24h 30 days Active Trazodone HCl 100 MG Orally at night as needed for sleep 0.5 -1 tablet Active Latuda 80 MG Orally every dinner time 1 tablet 30 days Active Aspir-81 81 MG Orally Once a day 1 tablet 24h Active Spiriva Respimat 2.5 MCG/ACT Inhalation Once a day 1 puff 24h Active PredniSONE Active Ventolin HFA 108 (90 Base) MCG/ACT Inhalation every 4 hrs 2 puffs as needed 4h Active Atorvastatin Calcium 40 mg Orally Once a day 1 tablet 24h 0 Active Benzonatate 100 mg Orally Three times a day 1 capsule as needed 8h Jul, Active RESULTS No Results PROCEDURES No Known [...] Coronary atherosclerosis of unspecified type of vessel, washoe or graft Medical History Coronary atherosclerosis of unspecified type of vessel, washoe or graft Surgical History section x4 Surgical History CABG x3 Surgical History Left arm-Plate and screws placed Hospitalization History Surgery(s)/Childbirth(s) only
--- OUTSIDE RECORDS SUMMARY | 2019-02-02 13:59 | XMS REPORT ---
Author Author MAL SHARMA Organization [facility] Address [address] [place] [address] Care Team Providers Care Estate Planner Name Role Phone MAL SHARMA Unavailable PROBLEMS Type Condition ICD9-CM Code CMI84-VP Code Onset Dates Condition Status SNOMED Code Problem Chronic obstructive pulmonary disease with acute exacerbation J44.1 Active 926725877 Problem MESERET (generalized anxiety disorder) F41.1 Active 83471647 Problem Panic disorder F41.0 Active 631710053 Problem Morbid (severe) obesity due to excess calories E66.01 Active 44256791823933 Problem Body mass index (BMI) of 45.0-49.9 in adult Z68.42 Active 140105856 Problem 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.10 Active 3470363428092 Problem Mood disorder F39 Active 74729927 Problem Bipolar disorder, in partial remission, most recent episode depressed F31.75 Active 28633052 Problem Claudication I73.9 Active 626693954 Problem Mixed hyperlipidemia E78.2 Active 096758567 Problem PTSD (post-traumatic stress disorder) F43.10 Active 32819906 Problem Sleep apnea in adult G47.30 Active 16934882 Problem COPD mixed type J44.9 Active 33677636 Problem Obesity (BMI 30-39.9) E66.9 Active 114811523 Problem 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 without angina pectoris I25.810 Active 923604141 Problem Bipolar 1 disorder F31.9 Active 889740772 Problem Essential hypertension I10 Active 67070082 ALLERGIES No Information ENCOUNTERS Encounter Location Date Diagnosis [facility] [id number], [place] [address] Apr, [facility] [id number], [place] [address] Apr, [facility] [address], [place] [address] Mar, Bipolar disorder, in partial remission, most recent episode depressed F31.75 ; MESERET (generalized anxiety disorder) F41.1 ; Panic disorder F41.0 and BMI 45.0-49.9, adult Z68.42 [facility] [id number] [id number] 16 Mar, 2018 High risk medication use Z79.899 and Mixed hyperlipidemia E78.2 [facility] [id number][place] [id number] Mar, COPD mixed type J44.9 ; Essential hypertension I10 ; Sleep apnea in adult G47.30 ; Mixed hyperlipidemia E78.2 ; Morbid (severe) obesity due to excess calories E66.01 ; Body mass index (BMI) of 45.0-49.9 in adult Z68.42 ; Tobacco abuse Z72.0 ; Tobacco abuse counseling Z71.6 and BMI 45.0-49.9, adult Z68.42 [id number] [place] [address] Feb, Bipolar disorder, in partial remission, most recent episode depressed F31.75 ; MESERET (generalized anxiety disorder) F41.1 ; Panic disorder F41.0 and BMI 45.0-49.9, adult Z68.42 [address] [address], [place] [address] Feb, Bipolar 1 disorder, depressed F31.9 ; PTSD (post-traumatic stress disorder) F43.10 and Panic attacks F41.0 [place] [address] [place] [address]- 4508 Feb, High risk medication use Z79.899 [place] [id number] [place] [address] 57487- 7885 January, High risk medication use Z79.899 ; Bipolar disorder, in partial remission, most recent episode depressed F31.75 ; MESERET (generalized anxiety disorder) F41.1 ; Panic disorder F41.0 and BMI 45.0-49.9, adult Z68.42 [facility] [address], [place] [address] January, Bipolar 1 disorder, depressed F31.9 ; PTSD (post-traumatic stress disorder) F43.10 and Panic attacks F41.0 [facility] [address], [place] [address] January, Bipolar 1 disorder, depressed F31.9 ; PTSD (post-traumatic stress disorder) F43.10 and Panic attacks F41.0 [facility] [address], [place] [address] Dec, BMI 45.0-49.9, adult Z68.42 ; Bipolar disorder, in partial remission, most recent episode depressed F31.75 ; MESERET (generalized anxiety disorder) F41.1 and Panic disorder F41.0 [address] [address] [place] [address]68- 1349 Dec, Bipolar 1 disorder, depressed F31.9 ; PTSD (post-traumatic stress disorder) F43.10 and Panic attacks F41.0 [facility] [address] [place] [address] 7[address]- 0[address] Nov, Bipolar disorder, in partial remission, most recent episode depressed F31.75 ; MESERET (generalized anxiety disorder) F41.1 and Panic disorder F41.0 [facility] [address], [place] [address] Nov, [facility] [address] [place] [address] 57[address]- 2809 Nov, [facility] [address] [place] [address] 36026- 9565 Oct, BMI 45.0-49.9, adult Z68.42 ; Bipolar disorder, in partial remission, most recent episode depressed F31.75 ; MESERET (generalized anxiety disorder) F41.1 and Panic disorder F41.[address] [id number] [id number] 23 Oct, 2017 BMI 45.0-49.9, adult Z68.42 ; 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.10 ; Hx of CABG Z95.1 ; Dyspnea on exertion R06.09 ; Essential hypertension I10 ; Mixed hyperlipidemia E78.2 ; Claudication I73.9 and Tobacco use Z72.0 [facility] [address] [id number] [id number] 15 Oct, 2017 BMI 45.0-49.9, adult Z68.42 ; Bipolar 1 disorder, depressed F31.9 and Abscess L02.91 [address] [place] [address] [place] [address]- [address] 14 Oct, 2017 Bipolar 1 disorder, depressed F31.9 ; PTSD (post-traumatic stress disorder) F43.10 and Panic attacks F41.0 [place] [address] [place] [address]327- 7514 Sep, BMI 40.0-44.9, adult Z68.41 ; Mood disorder F39 ; MESERET ( generalized anxiety disorder) F41.1 and Panic disorder F41.0 [place] [id number] [place] [address]15- 5320 Sep, BMI 40.0-44.9, adult Z68.41 [address] [address], [place] [address] Sep, Bipolar 1 disorder, depressed F31.9 ; PTSD (post-traumatic stress disorder) F43.10 and Panic attacks F41.0 [address] [place] [address] [place] [address]57- 6611 Aug, BMI 40.0-44.9, adult Z68.41 ; Mood disorder F39 ; MESERET ( generalized anxiety disorder) F41.1 and Panic disorder F41.0 [address] [place] [address] [place] [address] 7[address]- 4972 Aug, Bipolar 1 disorder, depressed F31.9 ; PTSD (post-traumatic stress disorder) F43.10 and Panic attacks F41.0 [facility] [address] [facility] [id number] [id number] Aug, [facility] [address] [place] [id number] Aug, COPD mixed type J44.9 [facility] [address], [place] [address] Aug, [place] [address] [place] [address]- 4[address] Jul, PTSD (post-traumatic stress disorder) F43.10 ; Panic disorder F41.0 ; MESERET (generalized anxiety disorder) F41.1 ; Mood disorder F39 and BMI 40.0-44.9, adult Z68.41 [place] [id number], [place] [address] Jul, Bipolar 1 disorder, depressed F31.9 ; PTSD (post-traumatic stress disorder) F43.10 and Panic attacks F41.[address] [id number] Jul, Bipolar 1 disorder, depressed F31.[address] [place] [address] [id number] Jul, Anxiety F41.9 ; COPD mixed type J44.9 ; Essential hypertension I10 ; Bipolar 1 disorder F31.9 ; High risk medication use Z79.899 ; BMI 40.0-44.9, adult Z68.41 and 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 without angina pectoris I25.[address] [id number] [id number] Jul, Chronic obstructive pulmonary disease with acute exacerbation J44.1 and Acute nasopharyngitis J00 [facility] [address] [address] Jul, Anxiety F41.9 ; Mixed hyperlipidemia E78.2 and Bipolar 1 disorder F31.[address] [id number] [place] [address] Jun Bipolar 1 disorder F31.[address] [id number] [place] [address] [id number] [address] Jun, Anxiety F41.9 ; Elevated blood sugar R73.9 ; Mixed hyperlipidemia E78.2 ; COPD mixed type J44.9 ; Essential hypertension I10 ; Bipolar 1 disorder F31.9 ; 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 without angina pectoris I25.810 ; High risk medication use Z79.899 ; Controlled substance agreement signed Z79.899 ; Elevated fasting glucose R73.01 ; Encounter for immunization Z23 and BMI 40.0-44.9, adult Z68.41 [facility] [address] [facility] [id number] [id number] Jun, Elevated blood sugar R73.9 [place] [id number] [id number] Jun, [facility] [address] [place] [id number] Jun, Bipolar 1 disorder F31.9 ; Obesity (BMI 30-39.9) E66.9 ; 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 without angina pectoris I25.810 and Essential hypertension I10 [facility] [address] [facility] [id number][place] [id number] Jun, 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 without angina pectoris I25.810 ; Bipolar 1 disorder F31.9 ; Anxiety F41.9 ; Essential hypertension I10 ; COPD mixed type J44.9 and Mixed hyperlipidemia E78.2 [facility] [address] [facility] [id number][place] [id number] May, Severe single current episode of major depressive disorder, 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.2 ; Bipolar 1 disorder F31.9 ; Anxiety F41.9 ; PTSD (post -traumatic stress disorder) F43.10 ; 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 without angina pectoris I25.810 ; Sleep apnea in adult G47.30 ; Essential hypertension I10 ; High risk medication use Z79.899 ; Obesity (BMI 30-39.9) E66.9 ; Encounter for therapeutic drug level monitoring Z51.81 and COPD mixed type J44.9 [address] [id number] [place] [id number] May, Severe single current episode of major depressive disorder, 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.2 ; Bipolar 1 disorder F31.9 ; Anxiety F41.9 ; PTSD (post -traumatic stress disorder) F43.10 ; Mixed hyperlipidemia E78.2 ; 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 without angina pectoris I25.810 ; Sleep apnea in adult G47.30 ; Essential hypertension I10 ; High risk medication use Z79.899 ; Controlled substance agreement signed Z79.899 ; Obesity (BMI 30-39.9) E66.9 ; Tobacco abuse Z72.0 ; Tobacco abuse counseling Z71.6 and COPD mixed type J44.9 [address] [id number] [place] [address] [id number] May, [facility] [id number] [place] [address] 33980710- 6456 Dec, [facility] [id number] [place] [address] 64362- 9369 Dec, [facility] [id number] [place] [address] [id number]- 6032 May, [facility] [id number] [place] [address] 67992- 0726 May, [place] [id number] [place] [address] [id number] Dec, [facility] [id number] [place] [address] [id number]- 8064 Dec, [address] [id number] [place] [address] [id number] Dec, [facility] [id number] [place] [address] 45913- 0459 Dec, [facility] [address] [address]- [address] Dec, [facility] [place] [facility] [address] [facility] [id number], [place] [address] 2546 Dec, [facility] [place] [facility] [address] [facility] [id number], [place] [address]- 5746 Nov, [facility] [address] [id number] [place] [id number] Nov, [facility] [address] [id number] [place] [id number] Nov, [facility] [address] [facility] [id number] [place] [id number] Nov, [facility] [place] [facility] [address] [facility] [id number] [place] [address] 2546 Nov, [facility] [place] [facility] [id number] [place] [address]- 5846 Nov, [facility] [place] [facility] [id number], [place] [address] 2546 Nov, [facility] [place] [facility] [id number], [place] [address]- 7[address] Nov, [facility] [place] [facility] [address] [facility] [id number], [place] [address]- 0556 Nov, [facility] [place] [facility] [address] [facility] [id number], [place] [address]- 8756 Nov, [facility] [address] [facility] [id number][place] [id number] Nov, [facility] [address] [facility] [id number], [place] [id number] Oct, [facility] [place] [facility] [address] [facility] [id number], [place] [address] 2546 Oct, [facility] [address] [facility] [id number] [place] [id number] Oct, [facility] [place] [facility] [address] [facility] [id number], [place] [address]- 6976 Oct, [facility] [place] [facility] [address] [facility] [id number], [place] [address]- 1266 Oct, [facility] [address] [facility] [id number] [place] [id number] Sep, [facility] [place] [facility] [address] [facility] [id number] [place] [address]- 2766 Sep, [facility] [id number] [place] [id number] Sep, [facility] [place] [facility] [address] [facility] [id number] [place] [address]- 0466 Sep, [facility] [place] [facility] [address] [place] [address]- 5966 Sep, [facility] [place] [facility] [address] [place] [address]- 5850 Sep, [facility] [place] [facility] [address], [place] [address]- 6751 Aug, [facility] [address] [id number], [place] [id number] Aug, [facility] [place] [facility] [address], [place] [address]- 9016 Aug, [facility] [id number], [place] [id number] Jul, [facility] [place] [facility] [id number], [place] [address]- 3816 Jul, [facility] [address] [id number], [place] [id number] Jul, [facility] [place] [facility] [address] [facility] [id number] [place] [address]- 3376 Jul, [facility] [place] [facility] [id number], [place] [address]- 7766 May, [facility] [place] [facility] [id number] [place] [address]- 8276 Apr, [facility] [place] [facility] [address] [facility] [id number], [place] [address]- 2546 Apr, [facility] [address] [facility] [id number], [place] [address]- 2546 Mar, [facility] [address] [id number] [place] [id number] Feb, [facility] [address] [id number] [place] [id number] Feb, [facility] [address] [id number] [place] [id number] Feb, [facility] [address] [facility] [id number] [place] [address]- 2546 Feb, [facility] [place] [facility] [address] [facility] [id number], [place] [address]- 2546 January, [facility] [place] [facility] [address] [facility] [id number], [place] [address]- 2546 January, [facility] [address] [id number], [place] [id number] Dec, [facility] [address] [id number] [place] [id number] Dec, [facility] [address] [id number] [place] [id number] Dec, [facility] [address] [id number], [place] [address] Dec, [facility] [address] [id number] [place] [id number] Dec, [facility] [address] [id number], [place] 368[address] Dec, [facility] [place] [facility] [address] [facility] [id number], [place] [address]- 2546 Dec, [facility] [place] [facility] [address] [facility] [id number], [place] [address]- 2546 Dec, [facility] [address] [id number] [place] [id number] Nov, [facility] [address] [id number], [place] [address] Nov, [facility] [address] [id number], [place] [id number] Nov, [facility] [address] [facility] [id number] [place] [address]- 2546 Oct, [facility] [address] [facility] [id number], [place] [address]- 2546 Oct, [facility] [place] [facility] [address] [facility] [id number], [place] [address]- 2546 Sep, [facility] [place] [facility] [address] [facility] [id number] [place] [address]- 3246 Aug, [facility] [place] [facility] [address] [facility] [id number], [place] [address]- 6906 Aug, [facility] [address] [facility] [id number] [place] [address]- 5976 Aug, [facility] [place] [facility] [address] [facility] [id number], [place] [address]- 8636 Aug, [facility] [address] [facility] [id number], [place] [id number] Aug, [facility] [place] [facility] [address] [facility] [id number], [place] [address]- 5706 Aug, [facility] [place] [facility] [address] [facility] [id number], [place] [address]- 2546 Jul, [facility] [place] [facility] [address] [facility] [id number], [place] [address]- 2546 Jul, [facility] [place] [facility] [address] [facility] [id number], [place] [address]- 2546 Jul, [facility] [place] [facility] [address] [facility] [id number], [place] [address]- 2546 Jul, [facility] [address] [id number][place] [id number] Jun, [facility] [address] [facility] [id number], [place] [id number] Jun, [facility] [place] [facility] [address] [facility] [id number] [place] [address]- 6366 Jun, [facility] [address] [facility] [id number] [place] [id number] Apr, [facility] [place] [facility] [address] [facility] [id number] [place] [address]- 2546 Apr, [facility] [place] [facility] [address] [facility] [id number] [place] [address]- 2546 Mar, [facility] [address] [id number] [place] [id number] Feb, [facility] [address] [facility] [id number] [place] [id number] Feb, [facility] [place] [facility] [address] [facility] [id number], [place] [address]- 1136 Feb, [facility] [id number], [place] [id number] Feb, [facility] [place] [facility] [id number], [place] [address]- 3966 Feb, [facility] [place] [facility] [address]00565100[place], [place] [address]- 6602 Feb, [facility] [place] [facility] [address]00565100[place], [place] [address]- 4656 Feb, [facility] [place] [facility] [address] [facility] [id number], [place] [address]- 8146 Feb, [facility] [address] [facility] [id number], [place] [id number] January, [facility] [address] [facility] [id number] [place] [id number] Dec, [facility] [place] [facility] [address] [facility] [id number], [place] [address]- 4246 Dec, [facility] [place] [facility] [address] [facility] [id number], [place] [address] Dec, [facility] [place] [address] [facility] [id number] [place] [id number] Dec, [facility] [address] [facility] [id number], [place] [address] Dec, [facility] [address] [id number] [place] [id number] Dec, [facility] [place] [address] [id number] [place] [id number] Nov, [facility] [place] [address] [id number] [place] [id number] Nov, [facility] [address] [id number] [place] [id number] Nov, [facility] [address] [id number] [place] [id number] Nov, [facility] [id number], [place] [address] Oct, [facility] [address] [id number] [place] [id number] Oct, [facility] [address] [id number] [place] [id number] Oct, [facility] [address] [id number] [place] [id number] Oct, [facility] [address] [id number] [place] [id number] Oct, [facility] [place] [address] [id number] [place] [id number] Sep, [facility] [address] [id number] [place] [id number] Sep, [facility] [id number], [place] [address] Sep, [facility] [id number], [place] [address] Sep, [facility] [id number], [place] [address] Sep, [facility] [id number] [address] Sep, [facility] [place] [facility] [address] [id number] [place] [address] 30 Aug, 2011 [facility] [place] [facility] [address] [id number] [place] [address] Aug, [facility] [place] [facility] [address] [id number] [place] [address] Aug, [facility] [place] [facility] [address] [id number] [place] [address] Aug, [facility] [place] [facility] [address] [id number] [place] [address] Aug, [facility] [place] [facility] [address] [id number] [place] [address] Aug, [facility] [place] [facility] [address] [id number] [place] [address] Aug, [facility] [place] [facility] [address] [id number] [place] [address] Aug, [facility] [place] [facility] [address] [id number] [place] [address] Jun, [facility] [place] [facility] [address] [id number], [place] [address] 27 Jun, 2011 [facility] [place] [facility] [address] [id number], [place] [address] Jun, [facility] [place] [facility] [address] [id number], [place] [address] 19 Jun, 2011 [facility] [place] [facility] [address] [id number] [place] [address] 14 Jun, 2011 [facility] [place] [facility] [address] [id number], [place] [address] 13 Jun, 2011 [facility] [place] [facility] [address] [id number], [place] [address] 12 Jun, 2011 [facility] [place] [facility] [id number], [place] [address] 12 Jun, 2011 [facility] [id number], [place] [address] Jun, [facility] [id number] [address] 14 May, 2011 [facility] [id number] [place] [address] Apr, [facility] [id number] [place] [address] Feb, [facility] [id number] [place] [address] Dec, [facility] [id number] [address] Aug, [facility] [id number] [place] [address] Aug, [facility] [id number] [place] [address] Aug, [facility] [id number] [place] [address] Aug, [facility] [id number] [place] [address] Jul, [facility] [id number] [address] Jun, [facility] [id number] [place] [address] Jun, IMMUNIZATIONS No Known Immunizations SOCIAL HISTORY Never Assessed REASON FOR VISIT f/u PLAN OF CARE Activity Details Follow Up Next available Reason: VITAL SIGNS MEDICATIONS Unknown Medications RESULTS No Results PROCEDURES Procedure Date Ordered Result Body Site No Charge December 31, 2017 INSTRUCTIONS MEDICATIONS ADMINISTERED No Known Medications MEDICAL [...] Coronary atherosclerosis of unspecified type of vessel, bois forte or graft Medical History Coronary atherosclerosis of unspecified type of vessel, bois forte or graft Surgical History section x4 Surgical History CABG x3 Surgical History Left arm-Plate and screws placed Hospitalization History Surgery(s)/Childbirth(s) only
--- OUTSIDE RECORDS SUMMARY | 2019-02-02 14:00 | XMS REPORT ---
Author Author DEANA KEVON [facility] Address [address] [place] [address] Care Team Providers Care Tool Supervisor Name Role Phone ANNIMARILYN KEVON Unavailable PROBLEMS Type Condition ICD9-CM Code [id number] Code Onset Dates Condition Status SNOMED Code Problem Chronic obstructive pulmonary disease with acute exacerbation J44.1 Active 113958785 Problem MESERET (generalized anxiety disorder) F41.1 Active 93239122 Problem Panic disorder F41.0 Active 035810609 Problem Morbid (severe) obesity due to excess calories E66.01 Active 09970791807052 Problem Body mass index (BMI) of 45.0-49.9 in adult Z68.42 Active 503462671 Problem 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 Active 1545293215729 Problem Mood disorder F39 Active 01167496 Problem Bipolar disorder, in partial remission, most recent episode depressed F31.75 Active 63136040 Problem Claudication I73.9 Active 580094569 Problem Mixed hyperlipidemia E78.2 Active 291157164 Problem PTSD (post-traumatic stress disorder) F43.10 Active 35556726 Problem Sleep apnea in adult G47.30 Active 43553209 Problem COPD mixed type J44.9 Active 87647950 Problem Obesity (BMI 30-39.9) E66.9 Active 973823975 Problem Coronary artery disease involving coronary bypass graft of shoshone-bannock heart without angina pectoris I25.810 Active 100443594 Problem Bipolar 1 disorder F31.9 Active 760911066 Problem Essential hypertension I10 Active 90080208 ALLERGIES No Information ENCOUNTERS Encounter Location Date Diagnosis [facility] [address] [id number] [address] Apr, [facility] [address] [facility] [id number], [place] [address] Mar, [facility] [address] [id number] [place] [id number] 16 Mar, 2018 High risk medication use Z79.899 and Mixed hyperlipidemia E78.2 [facility] [address] [id number] [id number] Mar, COPD mixed type J44.9 ; Essential hypertension I10 ; Sleep apnea in adult G47.30 ; Mixed hyperlipidemia E78.2 ; Morbid (severe) obesity due to excess calories E66.01 ; Body mass index (BMI) of 45.0-49.9 in adult Z68.42 ; Tobacco abuse Z72.0 ; Tobacco abuse counseling Z71.6 and BMI 45.0-49.9, adult Z68.42 [address] [id number] [place] [address]70- 9825 Feb, Bipolar disorder, in partial remission, most recent episode depressed F31.75 ; MESERET (generalized anxiety disorder) F41.1 ; Panic disorder F41.0 and BMI 45.0-49.9, adult Z68.42 [address] [place] [id number] [place] [address] 06794- 1566 Feb, Bipolar 1 disorder, depressed F31.9 ; PTSD (post-traumatic stress disorder) F43.10 and Panic attacks F41.0 [id number] [place] [address] 30840- 8653 Feb, High risk medication use Z79.899 [address] [place] [address] 83109- 4777 January, High risk medication use Z79.899 ; Bipolar disorder, in partial remission, most recent episode depressed F31.75 ; MESERET (generalized anxiety disorder) F41.1 ; Panic disorder F41.0 and BMI 45.0-49.9, adult Z68.42 [address] [id number] [place] [address] 95320- 3075 January, Bipolar 1 disorder, depressed F31.9 ; PTSD (post-traumatic stress disorder) F43.10 and Panic attacks F41.[address] [place] [address]- 8865 January, Bipolar 1 disorder, depressed F31.9 ; PTSD (post-traumatic stress disorder) F43.10 and Panic attacks F41.0 [facility] [address] [place] [address] 10209- 6167 Dec, BMI 45.0-49.9, adult Z68.42 ; Bipolar disorder, in partial remission, most recent episode depressed F31.75 ; MESERET (generalized anxiety disorder) F41.1 and Panic disorder F41.0 [facility] [address] [place] [address] 03814- 6118 Dec, Bipolar 1 disorder, depressed F31.9 ; PTSD (post-traumatic stress disorder) F43.10 and Panic attacks F41.0 [facility] [id number] [place] [address] 03773- 7110 Nov, Bipolar disorder, in partial remission, most recent episode depressed F31.75 ; MESERET (generalized anxiety disorder) F41.1 and Panic disorder F41.0 [facility] [address], [place] [address] Nov, [facility] [id number] [place] [address] 61995- 0874 Nov, [facility] [address] [place] [address] 15016- 6529 Oct, BMI 45.0-49.9, adult Z68.42 ; Bipolar disorder, in partial remission, most recent episode depressed F31.75 ; MESERET (generalized anxiety disorder) F41.1 and Panic disorder F41.[address] [id number] [id number] Oct, BMI 45.0-49.9, adult Z68.42 ; 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 ; Hx of CABG Z95.1 ; Dyspnea on exertion R06.09 ; Essential hypertension I10 ; Mixed hyperlipidemia E78.2 ; Claudication I73.9 and Tobacco use Z72.0 [facility] [id number] [place] [id number] 15 Oct, 2017 BMI 45.0-49.9, adult Z68.42 ; Bipolar 1 disorder, depressed F31.9 and Abscess L02.91 [address] [place] [address] 89252- 4403 14 Oct, 2017 Bipolar 1 disorder, depressed F31.9 ; PTSD (post-traumatic stress disorder) F43.10 and Panic attacks F41.0 [address] [place] [id number] [place] [address] 96793- 5975 Sep, BMI 40.0-44.9, adult Z68.41 ; Mood disorder F39 ; MESERET ( generalized anxiety disorder) F41.1 and Panic disorder F41.0 [place] [id number] [place] [address] 87844- 3317 Sep, BMI 40.0-44.9, adult Z68.41 [place] [id number] [place] [address] 22576- 9306 Sep, Bipolar 1 disorder, depressed F31.9 ; PTSD (post-traumatic stress disorder) F43.10 and Panic attacks F41.0 [place] [address] [place] [address] 16152- 6124 Aug, BMI 40.0-44.9, adult Z68.41 ; Mood disorder F39 ; MESERET ( generalized anxiety disorder) F41.1 and Panic disorder F41.0 [place] [address] [place] [address] 70254- 6968 Aug, Bipolar 1 disorder, depressed F31.9 ; PTSD (post-traumatic stress disorder) F43.10 and Panic attacks F41.0 [facility] [id number] [place] [id number] Aug, [facility] [id number] [place] [address] [id number] Aug, COPD mixed type J44.9 [place] [address]00565100[place], [place] [address]- 9247 Aug, [place] [address] [place] [address] 15446- 9541 Jul, PTSD (post-traumatic stress disorder) F43.10 ; Panic disorder F41.0 ; MESERET (generalized anxiety disorder) F41.1 ; Mood disorder F39 and BMI 40.0-44.9, adult Z68.41 [facility] [address] [place] [address] 75878- 2342 Jul, Bipolar 1 disorder, depressed F31.9 ; PTSD (post-traumatic stress disorder) F43.10 and Panic attacks F41.[address] [place] [address] [id number] Jul, Bipolar 1 disorder, depressed F31.9 [address] [place] [address] [id number] Jul, Anxiety F41.9 ; COPD mixed type J44.9 ; Essential hypertension I10 ; Bipolar 1 disorder F31.9 ; High risk medication use Z79.899 ; BMI 40.0-44.9, adult Z68.41 and Coronary artery disease involving coronary bypass graft of shoshone-bannock heart without angina pectoris I25.[address] [place] [address] [id number] Jul, Chronic obstructive pulmonary disease with acute exacerbation J44.1 and Acute nasopharyngitis J00 [address] [place] [address] [id number] Jul, Anxiety F41.9 ; Mixed hyperlipidemia E78.2 and Bipolar 1 disorder F31.9 [facility] [address] [id number] [place] [address] Jun Bipolar 1 disorder F31.9 [facility] [address] [id number] [place] [address] [id number] [id number] Jun, Anxiety F41.9 ; Elevated blood sugar R73.9 ; Mixed hyperlipidemia E78.2 ; COPD mixed type J44.9 ; Essential hypertension I10 ; Bipolar 1 disorder F31.9 ; Coronary artery disease involving coronary bypass graft of shoshone-bannock heart without angina pectoris I25.810 ; High risk medication use Z79.899 ; Controlled substance agreement signed Z79.899 ; Elevated fasting glucose R73.01 ; Encounter for immunization Z23 and BMI 40.0-44.9, adult Z68.41 [facility] [id number] [place] [address] [id number] Jun, Elevated blood sugar R73.9 [facility] [id number] [place] [address] [id number] Jun, [place] [address] [id number] Jun, Bipolar 1 disorder F31.9 ; Obesity (BMI 30-39.9) E66.9 ; Coronary artery disease involving coronary bypass graft of shoshone-bannock heart without angina pectoris I25.810 and Essential hypertension I10 [facility] [id number] [place] [address] [id number] Jun, Coronary artery disease involving coronary bypass graft of shoshone-bannock heart without angina pectoris I25.810 ; Bipolar 1 disorder F31.9 ; Anxiety F41.9 ; Essential hypertension I10 ; COPD mixed type J44.9 and Mixed hyperlipidemia E78.2 [facility] [id number] [place] [address] [id number] May, Severe single current episode of major depressive disorder, 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.2 ; Bipolar 1 disorder F31.9 ; Anxiety F41.9 ; PTSD (post -traumatic stress disorder) F43.10 ; Coronary artery disease involving coronary bypass graft of shoshone-bannock heart without angina pectoris I25.810 ; Sleep apnea in adult G47.30 ; Essential hypertension I10 ; High risk medication use Z79.899 ; Obesity (BMI 30-39.9) E66.9 ; Encounter for therapeutic drug level monitoring Z51.81 and COPD mixed type J44.9 [facility] [id number] [place] [address] [id number] May, Severe single current episode of major depressive disorder, 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.2 ; Bipolar 1 disorder F31.9 ; Anxiety F41.9 ; PTSD (post -traumatic stress disorder) F43.10 ; Mixed hyperlipidemia E78.2 ; Coronary artery disease involving coronary bypass graft of shoshone-bannock heart without angina pectoris I25.810 ; Sleep apnea in adult G47.30 ; Essential hypertension I10 ; High risk medication use Z79.899 ; Controlled substance agreement signed Z79.899 ; Obesity (BMI 30-39.9) E66.9 ; Tobacco abuse Z72.0 ; Tobacco abuse counseling Z71.6 and COPD mixed type J44.9 [facility] [id number] [place] [address] [id number] May, [facility] [address] [id number]- 6368 Dec, [facility] [id number] [place] [address] 47892- 9119 Dec, [facility] [id number] [place] [address] 00600- 4866 May, [facility] [id number] [place] [address] 28548- 0320 May, [facility] [id number] [place] [address] [id number] Dec, [facility] [id number] [place] [address] 25910- 1739 Dec, [facility] [id number] [place] [address] [id number] Dec, [facility] [id number] [place] [address] [id number]- 5106 Dec, [facility] [id number] [place] [address] 570956- 8136 Dec, [facility] [id number] [place] [address] [id number]- 1814 Dec, [facility] [id number] [place] [address] [id number]- 4633 Nov, [facility] [address] [id number] [place] [id number] Nov, [facility] [address] [id number] [place] [id number] Nov, [facility] [address] [facility] [id number] [place] [id number] Nov, [facility] [place] [facility] [address] [facility] [id number] [address]- 1746 Nov, [facility] [place] [facility] [address] [facility] [id number] [address]- 0796 Nov, [facility] [place] [facility] [address] [facility] [id number] [place] [address]- 5483 Nov, [facility] [place] [facility] [address] [facility] [id number], [place] [address]- 2398 Nov, [facility] [place] [facility] [address], [place] [address]- 5898 Nov, [facility] [place] [facility] [address] [facility] [id number] [address]- 1526 Nov, [facility] [address] [facility] [id number] [place] [id number] Nov, [facility] [address] [facility] [id number] [place] [id number] Oct, [facility] [place] [facility] [address] [facility] [id number] [address]- 5886 Oct, [facility] [address] [facility] [id number] [place] [address] Oct, [facility] [place] [facility] [address] [facility] [id number] [address]- 1941 Oct, [facility] [place] [facility] [address] [facility] [id number] [address]- 7836 Oct, [facility] [address] [facility] [id number] [place] [id number] Sep, [facility] [place] [facility] [address] [facility] [id number][place] [id number]- 1936 Sep, [facility] [address] [facility] [id number] [place] [id number] Sep, [facility] [place] [facility] [address] [facility] [id number] [place] [address]- 2546 Sep, [facility] [place] [facility] [address] [facility] [id number] [place] [address] 2546 Sep, [facility] [place] [facility] [address] [facility] [id number] [place] [address] 2546 Sep, [facility] [place] [facility] [address] [facility] [id number] [place] [address]- 9524 Aug, [facility] [address] [facility] [id number] [place] [id number] Aug, [facility] [address] [id number] [address]- 0736 Aug, [facility] [address] [id number] [place] 0[place] Jul, [facility] [place] [facility] [address] [facility] [id number] [address]- 1620 Jul, [facility] [address] [id number] [place] [id number] Jul, [facility] [place] [facility] [address] [facility] [id number] [address]- 2286 Jul, [facility] [place] [facility] [address]005[address], [place] [address] 2546 May, [facility] [place] [facility] [address] [facility] [id number][place] [address]- 2546 Apr, [facility] [place] [facility] [address] [facility] [id number] [place] [address] 2546 Apr, [facility] [place] [facility] [address] [facility] [id number] [place] [address]- 2546 Mar, [facility] [address] [id number] [id number] Feb, [facility] [address] [id number] [place] [id number] Feb, [facility] [address] [id number] [place] 1708560[address] Feb, [facility] [place] [facility] [address] [facility] [id number] [address]- 8507 Feb, [facility] [address] [facility] [id number], [place] [address]- 5734 January, [facility] [place] [facility] [address] [facility] [id number], [place] [address]- 3871 January, [facility] [address] [id number] [place] [id number] Dec, [facility] [address] [id number] [place] [id number] Dec, [facility] [address] [id number] [place] [id number] Dec, [facility] [address] [id number] [place] [id number] Dec, [facility] [address] [id number] [place] 252774738 Dec, [facility] [address] [id number] [place] [id number] Dec, [facility] [address]005[address], [place] [address]- 1428 Dec, [facility] [address] [facility] [id number], [place] [address]- 2544 Dec, [facility] [address] [id number] [place] 494109981 Nov, [facility] [address] [id number] [place] [id number] Nov, [facility] [address] [id number] [place] 771219804 Nov, [facility] [place] [facility] [address] [facility] [id number], [place] 06166074- 3738 Oct, [facility] [place] [facility] [address] [id number], [place] [address]- 2546 Oct, [facility] [address] [facility] [id number] [address]- 1086 Sep, [facility] [place] [facility] [address] [facility] [id number] [address]- 6786 Aug, [facility] [address] [facility] [id number], [place] [address]- 8906 Aug, [facility] [place] [facility] [address] [facility] [id number] [address]- 2371 Aug, [facility] [address] [facility] [id number] [address]- 1036 Aug, [facility] [id number] [place] [id number] Aug, [facility] [address], [place] [address]- 1786 Aug, [facility] [place] [facility] [address] [facility] [id number] [address]- 3154 Jul, [facility] [address], [place] [address]- 8236 Jul, [facility] [place] [facility] [address] [facility] [id number], [place] [address]- 2546 Jul, [facility] [place] [facility] [address] [facility] [id number] [address]- 2546 Jul, [facility] [address] [id number] [place] [id number] Jun, [facility] [address] [facility] [id number] [place] [id number] Jun, [facility] [place] [facility] [address] [facility] [id number] [address]- 2546 Jun, [facility] [address] [facility] [id number] [place] [id number] Apr, [facility] [place] [facility] [address] [facility] [id number], [place] [address]- 2546 Apr, [facility] [place] [facility] [address] [id number] [address]- 2546 Mar, [facility] [address] [id number] [place] [id number] Feb, [facility] [address] [id number] [place] [id number] Feb, [facility] [place] [facility] [address] [id number], [place] [address]- 2546 Feb, [facility] [address] [id number] [place] [id number] Feb, [facility] [place] [facility] [address] [facility] [id number] [place] [address]- 1496 Feb, [facility] [place] [facility] [address] [facility] [id number] [address] 2546 Feb, [facility] [place] [facility] [address]005[address]100[place], [place] [address]- 9136 Feb, [facility] [place] [facility] [address] [facility] [id number] [address]- 4056 Feb, [facility] [address] [id number] [place] [id number] January, [facility] [address] [id number] [place] 958154308 Dec, [facility] [place] [facility] [address] [facility] [id number] [address]- 2546 Dec, [facility] [place] [facility] [address] [facility] [id number] [address]- 2546 Dec, [facility] [address] [id number] [place] [id number] Dec, [facility] [place] [facility] [address] [facility] [id number], [place] [address]- 2546 Dec, [facility] [address] [id number] [place] [id number] Dec, [facility] [address] [id number] [place] [id number] Nov, [facility] [address] [id number] [place] [id number] Nov, [facility] [address] [id number] [place] [id number] Nov, [facility] [address] [id number] [place] [id number] Nov, [facility] [address] [facility] [id number] [address]- 2546 Oct, [facility] [address] [id number] [place] [id number] Oct, [facility] [place] [address] [id number] [place] [id number] Oct, [facility] [place] [address] [id number] [place] [id number] Oct, [facility] [place] [address] [id number] [place] [id number] Oct, [facility] [place] [address] [id number] [place] [id number] Sep, [facility] [place] [address] [id number] [place] [id number] Sep, [facility] [id number] [address] Sep, [facility] [id number] [address] Sep, [facility] [place] [facility] [address] [facility] [id number], [place] [address] Sep, [facility] [place] [facility] [address] [facility] [id number], [place] [address] Sep, [facility] [place] [facility] [id number], [place] [address] Aug, [facility] [place] [facility] [id number], [place] [address] Aug, [facility] [id number] [place] [address] 28 Aug, 2011 [facility] [place] [facility] [address] [id number] [place] [address] Aug, [facility] [place] [facility] [address] [id number] [place] [address] Aug, [facility] [place] [facility] [address] [id number] [place] [address] Aug, [facility] [place] [facility] [address] [id number] [place] [address] Aug, [facility] [place] [facility] [address] [id number] [place] [address] Aug, [facility] [place] [facility] [address] [id number] [place] [address] 27 Jun, 2011 [facility] [place] [facility] [address] [id number] [place] [address] 27 Jun, 2011 [facility] [place] [facility] [address] [id number] [place] [address] Jun, [facility] [place] [facility] [address] [id number] [place] [address] 19 Jun, 2011 [facility] [place] [facility] [address] [id number] [place] [address] 14 Jun, 2011 [facility] [place] [facility] [address] [id number] [place] [address] 13 Jun, 2011 [facility] [place] [facility] [address] [id number], [place] [address] 12 Jun, 2011 [facility] [place] [facility] [address] [id number] [place] [address] 12 Jun, 2011 [facility] [place] [facility] [address] [id number] [place] [address] 12 Jun, 2011 [facility] [place] [facility] [address] [id number] [place] [address] 14 May, 2011 [facility] [id number], [place] [address] Apr, [facility] [id number], [place] [address] Feb, [facility] [id number], [place] [address] Dec, [facility] [id number] [place] [address] Aug, [facility] [id number] [place] [address] Aug, [facility] [id number] [place] [phone] Aug, [facility] [id number] [place] [phone] Aug, [facility] [id number] [place] [phone] Jul, [facility] [id number] [phone] Jun, [facility] [id number] [phone] Jun, IMMUNIZATIONS No Known Immunizations SOCIAL HISTORY Never Assessed REASON FOR VISIT f/u PLAN OF CARE Activity Details Follow Up 4 Weeks Reason: VITAL SIGNS MEDICATIONS Medication Instructions Dosage Frequency Start Date End Date Duration Status [place] Carbonate 300 MG Orally daily 2 capsules in morning and one at night 24h 30 days Active Trazodone HCl 100 MG Orally at night as needed for sleep 0.5 -1 tablet Active Alprazolam 0.5 MG Orally Three times a day as needed for anxeity 1 tablet 30 days Active Losartan Potassium-HCTZ 50-12.5 MG Orally twice a day 1 tablet 12h 0 Active Latuda 60 MG Orally every dinner time 1 tablet Active Aspir-81 81 MG Orally Once a day 1 tablet 24h Active Albuterol Sulfate (2.5 MG/3ML) 0.083% Inhalation Three times a day 3 ml 8h Active Ventolin HFA 108 (90 Base) MCG/ACT Inhalation every 4 hrs 2 puffs as needed 4h Active Atorvastatin Calcium 40 mg Orally Once a day 1 tablet 24h 0 Active Benzonatate 100 mg Orally Three times a day 1 capsule as needed 8h Jul, Active Symbicort 160-4.5 MCG/ACT Inhalation Twice a [...] Coronary atherosclerosis of unspecified type of vessel, [place] or graft Medical History Coronary atherosclerosis of unspecified type of vessel, [place] or graft Surgical History section x4 Surgical History CABG x3 Surgical History Left arm-Plate and screws placed Hospitalization History Surgery(s)/Childbirth(s) only
--- OUTSIDE RECORDS SUMMARY | 2019-02-02 14:00 | XMS REPORT ---
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 Name Role Phone RAKESH LEONARD Unavailable PROBLEMS Type Condition ICD9-CM Code IUV95-SB Code Onset Dates Condition Status SNOMED Code Problem Coronary artery disease involving coronary bypass graft of minto heart without angina pectoris I25.810 Active 826281816 Problem Chronic obstructive pulmonary disease with acute exacerbation J44.1 Active 803628598 Problem Mixed hyperlipidemia E78.2 Active 950026705 Problem Bipolar disorder, in partial remission, most recent episode depressed F31.75 Active 70141603 Problem Claudication I73.9 Active 654765006 Problem MESERET (generalized anxiety disorder) F41.1 Active 41179297 Problem Panic disorder F41.0 Active 442545674 Problem Coronary artery disease involving minto coronary artery of minto heart without angina pectoris I25.10 Active 3677613204661 Problem Mood disorder F39 Active 42028667 Problem Obesity (BMI 30-39.9) E66.9 Active 714085980 Problem Bipolar 1 disorder F31.9 Active 747364579 Problem PTSD (post-traumatic stress disorder) F43.10 Active 27442150 Problem Sleep apnea in adult G47.30 Active 77269058 Problem Essential hypertension I10 Active 76331028 Problem COPD mixed type J44.9 Active 33320629 ALLERGIES No Information ENCOUNTERS Encounter Location Date Diagnosis [facility], [place] [address] [facility] [id number] [address] Apr, [facility], [place] [address] [facility] [id number] [place] [address] Mar, [facility] [address] [facility] [id number] [id number] Mar, [facility], [place] [address] [facility] [id number] [place] [address] Feb, Bipolar disorder, in partial remission, most recent episode depressed F31.75 ; MESERET (generalized anxiety disorder) F41.1 ; Panic disorder F41.0 and BMI 45.0-49.9, adult Z68.42 [place] [address]00565100[place] [address] Feb, Bipolar 1 disorder, depressed F31.9 ; PTSD (post-traumatic stress disorder) F43.10 and Panic attacks F41.0 [place] [address] [place] [address]- 9[address] Feb, High risk medication use Z79.899 [place] [id number] [place] [address]- 5796 January, High risk medication use Z79.899 ; Bipolar disorder, in partial remission, most recent episode depressed F31.75 ; MESERET (generalized anxiety disorder) F41.1 ; Panic disorder F41.0 and BMI 45.0-49.9, adult Z68.42 [place] [address] [place] [address]- 4579 January, Bipolar 1 disorder, depressed F31.9 ; PTSD (post-traumatic stress disorder) F43.10 and Panic attacks F41.0 [place] [address]00565100[place] [address] January, Bipolar 1 disorder, depressed F31.9 ; PTSD (post-traumatic stress disorder) F43.10 and Panic attacks F41.0 [place] [address]00565100[place] [address] Dec, BMI 45.0-49.9, adult Z68.42 ; Bipolar disorder, in partial remission, most recent episode depressed F31.75 ; MESERET (generalized anxiety disorder) F41.1 and Panic disorder F41.0 [place] [address] [place] [address] 6[address]80- 1495 Dec, Bipolar 1 disorder, depressed F31.9 ; PTSD (post-traumatic stress disorder) F43.10 and Panic attacks F41.0 [facility], [place] [address] [id number] [address] Nov, Bipolar disorder, in partial remission, most recent episode depressed F31.75 ; MESERET (generalized anxiety disorder) F41.1 and Panic disorder F41.0 [facility], [place] [address]00565100[place] [address] Nov, [facility], [place] [address] [place] [address]- 5035 Nov, [facility], [place] [address] [place] [address]97- 2877 Oct, BMI 45.0-49.9, adult Z68.42 ; Bipolar disorder, in partial remission, most recent episode depressed F31.75 ; MESERET (generalized anxiety disorder) F41.1 and Panic disorder F41.[address] [id number] [id number] 23 Oct, 2017 BMI 45.0-49.9, adult Z68.42 ; Coronary artery disease involving minto coronary artery of minto heart without angina pectoris I25.10 ; Hx of CABG Z95.1 ; Dyspnea on exertion R06.09 ; Essential hypertension I10 ; Mixed hyperlipidemia E78.2 ; Claudication I73.9 and Tobacco use Z72.0 [facility] [address] [id number] [id number] 15 Oct, 2017 BMI 45.0-49.9, adult Z68.42 ; Bipolar 1 disorder, depressed F31.9 and Abscess L02.91 [facility], [place] [address] [id number] [address] 14 Oct, 2017 Bipolar 1 disorder, depressed F31.9 ; PTSD (post-traumatic stress disorder) F43.10 and Panic attacks F41.0 [facility], [place] [address] [id number] [address] Sep, BMI 40.0-44.9, adult Z68.41 ; Mood disorder F39 ; MESERET ( generalized anxiety disorder) F41.1 and Panic disorder F41.0 [place] [id number] [place] [address] 68[address]- 5947 Sep, BMI 40.0-44.9, adult Z68.41 [place] [id number] [place] [address] 21217- 6847 Sep, Bipolar 1 disorder, depressed F31.9 ; PTSD (post-traumatic stress disorder) F43.10 and Panic attacks F41.0 [place] [id number] [place] [address] 28209- 8978 Aug, BMI 40.0-44.9, adult Z68.41 ; Mood disorder F39 ; MESERET ( generalized anxiety disorder) F41.1 and Panic disorder F41.0 [place] [id number] [place] [address]26- 8043 Aug, Bipolar 1 disorder, depressed F31.9 ; PTSD (post-traumatic stress disorder) F43.10 and Panic attacks F41.0 [facility] [id number] [place] [id number] Aug, [facility] [id number] [place] [id number] Aug, COPD mixed type J44.9 [place] [address] [place] [address] 61096- 1309 Aug, [place] [id number] [place] [address] 27610- 3054 Jul, PTSD (post-traumatic stress disorder) F43.10 ; Panic disorder F41.0 ; MESERET (generalized anxiety disorder) F41.1 ; Mood disorder F39 and BMI 40.0-44.9, adult Z68.41 [place] [id number] [place] [address] 04870- 6903 Jul, Bipolar 1 disorder, depressed F31.9 ; PTSD (post-traumatic stress disorder) F43.10 and Panic attacks F41.0 [facility] [id number] [place] [address] [id number] Jul, Bipolar 1 disorder, depressed F31.9 [place] [id number] [id number] Jul, Anxiety F41.9 ; COPD mixed type J44.9 ; Essential hypertension I10 ; Bipolar 1 disorder F31.9 ; High risk medication use Z79.899 ; BMI 40.0-44.9, adult Z68.41 and Coronary artery disease involving coronary bypass graft of minto heart without angina pectoris I25.810 [address]00565100[place] [id number] Jul, Chronic obstructive pulmonary disease with acute exacerbation J44.1 and Acute nasopharyngitis J00 [address] [place] [address] [id number] Jul, Anxiety F41.9 ; Mixed hyperlipidemia E78.2 and Bipolar 1 disorder F31.9 [facility] [address] [id number] [place] [address] Jun Bipolar 1 disorder F31.9 [facility] [address] [id number] [place] [address] Jun [place] [id number] [id number] Jun, Anxiety F41.9 ; Elevated blood sugar R73.9 ; Mixed hyperlipidemia E78.2 ; COPD mixed type J44.9 ; Essential hypertension I10 ; Bipolar 1 disorder F31.9 ; Coronary artery disease involving coronary bypass graft of minto heart without angina pectoris I25.810 ; High risk medication use Z79.899 ; Controlled substance agreement signed Z79.899 ; Elevated fasting glucose R73.01 ; Encounter for immunization Z23 and BMI 40.0-44.9, adult Z68.41 [address]65100[place] [id number] Jun, Elevated blood sugar R73.9 [place] [id number] [id number] Jun, [address] [address] Jun, Bipolar 1 disorder F31.9 ; Obesity (BMI 30-39.9) E66.9 ; Coronary artery disease involving coronary bypass graft of minto heart without angina pectoris I25.810 and Essential hypertension I10 [address]100[place] [address] Jun, Coronary artery disease involving coronary bypass graft of minto heart without angina pectoris I25.810 ; Bipolar 1 disorder F31.9 ; Anxiety F41.9 ; Essential hypertension I10 ; COPD mixed type J44.9 and Mixed hyperlipidemia E78.2 [place] [id number] [place] [address] [id number] May, Severe single current episode of major depressive disorder, 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.2 ; Bipolar 1 disorder F31.9 ; Anxiety F41.9 ; PTSD (post -traumatic stress disorder) F43.10 ; Coronary artery disease involving coronary bypass graft of minto heart without angina pectoris I25.810 ; Sleep apnea in adult G47.30 ; Essential hypertension I10 ; High risk medication use Z79.899 ; Obesity (BMI 30-39.9) E66.9 ; Encounter for therapeutic drug level monitoring Z51.81 and COPD mixed type J44.9 [address] [place] [address] [id number] May, Severe single current episode of major depressive disorder, 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.2 ; Bipolar 1 disorder F31.9 ; Anxiety F41.9 ; PTSD (post -traumatic stress disorder) F43.10 ; Mixed hyperlipidemia E78.2 ; Coronary artery disease involving coronary bypass graft of minto heart without angina pectoris I25.810 ; Sleep apnea in adult G47.30 ; Essential hypertension I10 ; High risk medication use Z79.899 ; Controlled substance agreement signed Z79.899 ; Obesity (BMI 30-39.9) E66.9 ; Tobacco abuse Z72.0 ; Tobacco abuse counseling Z71.6 and COPD mixed type J44.9 [place] [id number] [id number] May, [facility], [place] [address] [id number] [address] [address] Dec, [facility] [place] [facility] [address] [id number] [place] [address]- 2546 Dec, [facility] [place] [facility] [address] [id number] [place] [address]- 2546 May, [facility] [place] [facility] [address] [id number] [place] [address]- 2546 May, [facility] [address] [id number] [place] [address] Dec, [facility] [place] [facility] [address] [id number] [place] [address]- 2546 Dec, [facility] [address] [id number] [place] [id number] Dec, [facility] [place] [facility] [address] [facility] [id number] [place] [address]- 2546 Dec, [facility] [place] [facility] [address] [facility] [id number] [place] [address]- 2546 Dec, [facility] [place] [facility] [address] [id number] [place] [address]- 2546 Dec, [facility] [place] [facility] [address] [facility] [id number] [place] [address]- 2546 Nov, [facility] [address] [id number] [address] Nov, [facility] [address] [id number] [id number] Nov, [facility] [address] [facility] [id number] [id number] Nov, [facility] [place] [facility] [address] [id number] [place] [address]- 2546 Nov, [facility] [place] [facility] [address] [facility] [id number] [place] [address]- 2546 Nov, [facility] [place] [facility] [address] [facility] [id number] [place] [address]- 2546 Nov, [facility] [place] [facility] [address] [facility] [id number] [place] [address]- 5215 Nov, [facility] [place] [facility] [address] [facility] [id number] [place] [address]- 8732 Nov, [facility] [place] [facility] [address] [facility] [id number] [place] [address]- 9076 Nov, [facility] [address] [facility] [id number] [id number] Nov, [facility] [address] [facility] [id number][place] [address] Oct, [facility] [place] [facility] [address] [facility] [id number] [place] [address]- 7396 Oct, [facility] [address] [facility] [id number] [id number] Oct, [facility] [place] [facility] [address]00565100[place] [address]- 8336 Oct, [facility] [place] [facility] [address] [id number] [address] 1924 Oct, [facility] [address] [id number] [address] Sep, [facility] [place] [facility] [address] [id number] [address]- 9505 Sep, [facility] [address] [id number] [address] Sep, [facility] [place] [facility] [address] [facility] [id number] [place] [address]- 4460 Sep, [facility] [place] [facility] [address] [facility] [id number] [place] [address]- 4579 Sep, [facility] [place] [facility] [address] [facility] [id number] [place] [address]- 4336 Sep, [facility] [place] [facility] [address] [facility] [id number] [place] [address]- 5408 Aug, [facility] [address] [facility] [id number], [place] [address] Aug, [facility] [address] [facility] [id number] [place] [address]- 2546 Aug, [facility] [address] [id number][place] [address] Jul, [facility] [address] [facility] [id number] [place] [address] 2546 Jul, [facility] [address] [id number][place] [id number] Jul, [facility] [address] [id number] [place] [address]- 7336 Jul, [facility] [place] [facility] [address] [facility] [id number] [place] [address]- 2546 May, [facility] [address] [id number] [address]- 0316 Apr, [facility] [address] [id number] [address]- 2546 Apr, [facility] [address] [facility] [id number] [place] [address]- 1386 Mar, [facility] [address] [id number][place] [id number] Feb, [facility] [address] [id number], [place] [id number] Feb, [facility] [address] [id number][place] [id number] Feb, [facility] [place] [facility] [address] [facility] [id number] [place] [address]- 2546 Feb, [facility] [place] [facility] [address] [facility] [id number] [place] [address]- 2546 January, [facility] [place] [facility] [address] [facility] [id number] [place] [address]- 2546 January, [facility] [address] [id number][place] [address] Dec, [facility] [address] [id number] [id number] Dec, [facility] [place] [address] [id number] [place] [address] Dec, [facility] [place] [address] [id number] [place] [address] Dec, [facility] [place] [address] [id number] [place] 560[address] Dec, [facility] [address] [id number] [place] [id number] Dec, [facility] [address] [facility] [id number] [place] [address]- 2546 Dec, [facility] [place] [facility] [address] [facility] [id number] [place] [address]- 2546 Dec, [facility] [address] [id number] [place] [address] Nov, [facility] [address] [id number] [place] [id number] Nov, [facility] [address] [id number] [place] [id number] Nov, [facility] [address]00565100[place] [address]- 2908 Oct, [facility] [place] [facility] [address]00565100[place] [address]- 6926 Oct, [facility] [place] [facility] [address]00565100[place] [address]- 6106 Sep, [facility] [place] [facility] [address]00565100[place] [address]- 9887 Aug, [facility] [place] [facility] [address] [id number] [address]- 0167 Aug, [facility] [place] [facility] [address] [id number] [address]- 2431 Aug, [facility] [place] [facility] [address]00565100[place] [address]- 4984 Aug, [facility] [address] [facility] [id number][place] [address]25674372 Aug, [facility] [place] [facility] [address] [facility] [id number] [place] [address]- 5476 Aug, [facility] [place] [facility] [address] [id number] [address] 2546 Jul, [facility] [place] [facility] [address]00565100[place] [address]- 7286 Jul, [facility] [place] [facility] [address] [facility] [id number] [place] [address]- 2546 Jul, [facility] [place] [facility] [address] [address]- 7230 Jul, [facility] [address] [id number] [address]141 Jun, [facility] [id number] [address]35606 Jun, [facility] [place] [facility] [address]00565100[place] [address] 2546 Jun, [facility] [address] [facility] [id number] 708286440 Apr, [facility] [place] [facility] [address]00565100[place] [address] 2546 Apr, [facility] [place] [facility] [address]00565100[place] [address]- 2546 Mar, [facility] [address] [facility] [id number][place] [id number] Feb, [facility] [address] [facility] [id number], [place] 599196718 Feb, [facility] [place] [facility] [address] [facility] [id number] [place] [address]- 2546 Feb, [facility] [address] [facility] [id number], [place] [address]99966051 Feb, [facility] [place] [facility] [address]00565100[place] [address]- 6456 Feb, [facility] [address] [facility] [id number] [place] [address]- 2546 Feb, [facility] [place] [facility] [address] [facility] [id number] [place] [address]- 2546 Feb, [facility] [place] [facility] [address] [facility] [id number] [place] [address]- 2546 Feb, [facility] [address] [id number][place] [id number] January, [facility] [address] [id number], [place] [id number] Dec, [facility] [place] [facility] [address] [facility] [id number] [place] [address]- 2546 Dec, [facility] [place] [facility] [address]00565100[place] [address]- 2546 Dec, [facility] [address] [id number], [place] [id number] Dec, [facility] [address] [id number] [address]- 2546 Dec, [facility] [address] [id number][place] 075159725 Dec, [facility] [address] [id number], [place] [id number] Nov, [facility] [address] [id number], [place] [id number] Nov, [facility] [address] [id number], [place] 190701569 Nov, [facility] [address] [id number], [place] [id number] Nov, [facility] [place] [facility] [address] [facility] [id number] [place] [address]- 2546 Oct, [facility] [address] [id number], [place] [id number] Oct, [facility] [address] [id number], [place] 997164786 Oct, [facility] [address] [facility] [id number] [place] [address] Oct, [facility] [address] [facility] [id number] [place] [id number] Oct, [facility] [address] [facility] [id number] [place] [address] Sep, [facility] [address] [facility] [id number] [place] [id number] Sep, [facility] [address] [facility] [id number] [place] [address]- 1904 Sep, [facility] [id number] [place] [address] 97656- 4405 Sep, [facility] [id number] [place] [address] 46801- 9899 Sep, [facility] [id number] [place] [address] 98[address]- 4686 Sep, [facility] [address] [address] Aug, [facility] [id number] [address] Aug, [facility] [address] [address] Aug, [facility] [address] [address] Aug, [facility] [place] [facility] [address] [address] Aug, [facility] [place] [facility] [address] [address] [address] Aug, [facility] [place] [facility] [address] [address] [address] Aug, [facility] [place] [facility] [address] [address] Aug, [facility] [place] [facility] [address] [id number] [place] [address] 27 Jun, 2011 [facility] [place] [facility] [address] [id number] [place] [address] 27 Jun, 2011 [facility] [place] [facility] [address] [id number] [place] [address] 19 Jun, 2011 [facility] [place] [facility] [address] [id number] [place] [address] 19 Jun, 2011 [facility] [place] [facility] [address] [id number] [place] [address]- 2815 14 Jun, 2011 [facility] [place] [facility] [address] [id number] [place] [address]- 6401 13 Jun, 2011 [facility] [place] [facility] [address] [id number] [place] [address]- [address] 12 Jun, 2011 [facility] [place] [facility] [address] [id number] [place] [address]- 3937 12 Jun, 2011 [facility] [place] [facility] [address] [id number] [place] [address]- 7018 12 Jun, 2011 [facility] [place] [facility] [address] [id number] [place] [address]- 7408 14 May, 2011 [facility] [place] [facility] [address] [id number] [place] [address]- [address]802 10 Apr, 2011 [facility] [place] [facility] [address] [id number] [place] [address]- 2794 16 Feb, 2011 [facility] [place] [facility] [address] [id number] [place] [address]- 4977 20 Dec, 2010 [facility] [place] [facility] [address] [id number] [place] [address]- 3184 28 Aug, 2010 [facility] [place] [facility] [address] [id number] [place] [address] 28 Aug, 2010 [facility] [place] [facility] [address] [id number] [place] [address] Aug, [facility] [place] [address] [facility] [id number] [address] Aug, [facility] [place] [id number] [address] Jul, [facility] [place] [address] [facility] [id number] [address] Jun, [facility] [place] [id number] [address] Jun, IMMUNIZATIONS No Known Immunizations SOCIAL HISTORY Never Assessed REASON FOR VISIT PA 2D Echo PLAN OF CARE VITAL SIGNS MEDICATIONS Unknown [...] Coronary atherosclerosis of unspecified type of vessel, minto or graft Medical History Coronary atherosclerosis of unspecified type of vessel, minto or graft Surgical History section x4 Surgical History CABG x3 Surgical History Left arm-Plate and screws placed Hospitalization History Surgery(s)/Childbirth(s) only
--- OUTSIDE RECORDS SUMMARY | 2019-02-02 14:01 | XMS REPORT ---
Author Author DEANA KEVON Organization [facility] Address [address] [place] [address] Care Team Providers Care Humanities Instructor Name Role Phone ANNIMARILYN KEVON Unavailable PROBLEMS Type Condition ICD9-CM Code VHW30-FD Code Onset Dates Condition Status SNOMED Code Problem Coronary artery disease involving coronary bypass graft of [facility] ir[place] heart without angina pectoris I25.810 Active 539637334 Problem Chronic obstructive pulmonary disease with acute exacerbation J44.1 Active 336339168 Problem Mixed hyperlipidemia E78.2 Active 919777992 Problem Bipolar disorder, in partial remission, most recent episode depressed F31.75 Active 35545888 Problem Claudication I73.9 Active 032541719 Problem MESERET (generalized anxiety disorder) F41.1 Active 01555636 Problem Panic disorder F41.0 Active 302315632 Problem Coronary artery disease involving [facility] michael ira coronary artery of [facility] michael ira heart without angina pectoris I25.10 Active 7902860734934 Problem Mood disorder F39 Active 53327195 Problem Obesity (BMI 30-39.9) E66.9 Active 142245752 Problem Bipolar 1 disorder F31.9 Active 467545933 Problem PTSD (post-traumatic stress disorder) F43.10 Active 25138501 Problem Sleep apnea in adult G47.30 Active 57394654 Problem Essential hypertension I10 Active 56601513 Problem COPD mixed type J44.9 Active 42810691 ALLERGIES Substance Reaction Event Type Date Status Penicillin V Potassium Swelling/hives Drug Allergy Oct, Active Abilify dizziness Drug Allergy Oct, Active ENCOUNTERS Encounter Location Date Diagnosis [facility] [address] [facility] [id number] [address] Apr, [facility] [address] [facility] [id number] [address] [address] Mar, [facility] [address] [id number] [place] [id number] Mar, [place] [address], [place] [address] Feb, Bipolar disorder, in partial remission, most recent episode depressed F31.75 ; MESERET (generalized anxiety disorder) F41.1 ; Panic disorder F41.0 and BMI 45.0-49.9, adult Z68.42 [address] [place] [address] [place] [address] 65854- 6997 Feb, Bipolar 1 disorder, depressed F31.9 ; PTSD (post-traumatic stress disorder) F43.10 and Panic attacks F41.0 [place] [address] [place] [address] 78903- 7744 Feb, High risk medication use Z79.899 [place] [id number] [place] [address]55- 1999 January, High risk medication use Z79.899 ; Bipolar disorder, in partial remission, most recent episode depressed F31.75 ; MESERET (generalized anxiety disorder) F41.1 ; Panic disorder F41.0 and BMI 45.0-49.9, adult Z68.42 [place] [id number] [place] [address] 24736- 8113 January, Bipolar 1 disorder, depressed F31.9 ; PTSD (post-traumatic stress disorder) F43.10 and Panic attacks F41.0 [place] [address] [place] [address] 24148- 6983 January, Bipolar 1 disorder, depressed F31.9 ; PTSD (post-traumatic stress disorder) F43.10 and Panic attacks F41.0 [place] [address] [place] [address] 09577- 3421 Dec, BMI 45.0-49.9, adult Z68.42 ; Bipolar disorder, in partial remission, most recent episode depressed F31.75 ; MESERET (generalized anxiety disorder) F41.1 and Panic disorder F41.0 [place] [id number] [place] [address] 60912- 5593 Dec, Bipolar 1 disorder, depressed F31.9 ; PTSD (post-traumatic stress disorder) F43.10 and Panic attacks F41.0 [address] [place] [address] 53011- 9565 Nov, Bipolar disorder, in partial remission, most recent episode depressed F31.75 ; MESERET (generalized anxiety disorder) F41.1 and Panic disorder F41.0 [place] [id number] [place] [address] 31234- 9224 Nov, [place] [id number] [place] [address] 94142- 1533 Nov, [address] [place] [address] 49448- 7167 Oct, BMI 45.0-49.9, adult Z68.42 ; Bipolar disorder, in partial remission, most recent episode depressed F31.75 ; MESERET (generalized anxiety disorder) F41.1 and Panic disorder F41.[address] [id number] [address] Oct, BMI 45.0-49.9, adult Z68.42 ; Coronary artery disease involving [facility]. michael ira coronary artery of [facility]. michael ira heart without angina pectoris I25.10 ; Hx of CABG Z95.1 ; Dyspnea on exertion R06.09 ; Essential hypertension I10 ; Mixed hyperlipidemia E78.2 ; Claudication I73.9 and Tobacco use Z72.0 [facility] [address] [id number] [address] Oct, BMI 45.0-49.9, adult Z68.42 ; Bipolar 1 disorder, depressed F31.9 and Abscess L02.91 [address] [place] [address] 50697- 1038 Oct, Bipolar 1 disorder, depressed F31.9 ; PTSD (post-traumatic stress disorder) F43.10 and Panic attacks F41.0 [address] [place] [address] 39300- 4645 Sep, BMI 40.0-44.9, adult Z68.41 ; Mood disorder F39 ; MESERET ( generalized anxiety disorder) F41.1 and Panic disorder F41.0 [place] [id number] [place] [address] 57720- 5321 Sep, BMI 40.0-44.9, adult Z68.41 [place] [id number] [place] [address] 17239- 2008 Sep, Bipolar 1 disorder, depressed F31.9 ; PTSD (post-traumatic stress disorder) F43.10 and Panic attacks F41.0 [place] [address] [address]- 8143 Aug, BMI 40.0-44.9, adult Z68.41 ; Mood disorder F39 ; MESERET ( generalized anxiety disorder) F41.1 and Panic disorder F41.0 [place] [id number] [place] [address] 14609- 2827 Aug, Bipolar 1 disorder, depressed F31.9 ; PTSD (post-traumatic stress disorder) F43.10 and Panic attacks F41.0 [place] [id number] [place] [id number] Aug, [place] [id number] [place] [address] [id number] Aug, COPD mixed type J44.9 [place] [id number] [place] [address] 88671- 0351 Aug, [place] [id number] [place] [address] 92156- 1521 Jul, PTSD (post-traumatic stress disorder) F43.10 ; Panic disorder F41.0 ; MESERET (generalized anxiety disorder) F41.1 ; Mood disorder F39 and BMI 40.0-44.9, adult Z68.41 [place] [address] [place] [address] 05032- 0553 Jul, Bipolar 1 disorder, depressed F31.9 ; PTSD (post-traumatic stress disorder) F43.10 and Panic attacks F41.0 [facility] [id number] [place] [address] Jul, Bipolar 1 disorder, depressed F31.9 [place] [id number] [place] [address] [id number] Jul, Anxiety F41.9 ; COPD mixed type J44.9 ; Essential hypertension I10 ; Bipolar 1 disorder F31.9 ; High risk medication use Z79.899 ; BMI 40.0-44.9, adult Z68.41 and Coronary artery disease involving coronary bypass graft of st. michael ira heart without angina pectoris I25.[address] [place] [address] [id number] Jul, Chronic obstructive pulmonary disease with acute exacerbation J44.1 and Acute nasopharyngitis J00 [address] [place] [address] [id number] Jul, Anxiety F41.9 ; Mixed hyperlipidemia E78.2 and Bipolar 1 disorder F31.9 [facility] [address] [id number] [place] [address] Jun Bipolar 1 disorder F31.9 [facility] [address] [id number] [place] [address] Jun [place] [id number] [address] Jun, Anxiety F41.9 ; Elevated blood sugar R73.9 ; Mixed hyperlipidemia E78.2 ; COPD mixed type J44.9 ; Essential hypertension I10 ; Bipolar 1 disorder F31.9 ; Coronary artery disease involving coronary bypass graft of st. michael ira heart without angina pectoris I25.810 ; High risk medication use Z79.899 ; Controlled substance agreement signed Z79.899 ; Elevated fasting glucose R73.01 ; Encounter for immunization Z23 and BMI 40.0-44.9, adult Z68.[address] [place] [address] [id number] Jun, Elevated blood sugar R73.9 [place] [id number] [place] [address] [id number] Jun, [address] [id number] [place] [id number] Jun, Bipolar 1 disorder F31.9 ; Obesity (BMI 30-39.9) E66.9 ; Coronary artery disease involving coronary bypass graft of st. michael ira heart without angina pectoris I25.810 and Essential hypertension I10 [place] [id number] [address] Jun, Coronary artery disease involving coronary bypass graft of st. michael ira heart without angina pectoris I25.810 ; Bipolar 1 disorder F31.9 ; Anxiety F41.9 ; Essential hypertension I10 ; COPD mixed type J44.9 and Mixed hyperlipidemia E78.[address] [place] [address] [id number] May, Severe single current episode of major depressive disorder, 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.2 ; Bipolar 1 disorder F31.9 ; Anxiety F41.9 ; PTSD (post -traumatic stress disorder) F43.10 ; Coronary artery disease involving coronary bypass graft of st. 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 michael ira heart without angina pectoris I25.810 ; Sleep apnea in adult G47.30 ; Essential hypertension I10 ; High risk medication use Z79.899 ; Controlled substance agreement signed Z79.899 ; Obesity (BMI 30-39.9) E66.9 ; Tobacco abuse Z72.0 ; Tobacco abuse counseling Z71.6 and COPD mixed type J44.9 [address]00565100[place] [id number] May, [facility] [place] [facility] [address] [id number] [place] [address]- 4798 Dec, [facility] [place] [facility] [address] [id number] [place] [address]- 4536 Dec, [facility] [place] [facility] [address] [id number] [place] [address]- 2190 May, [facility] [place] [facility] [address] [id number] [place] [address]- 1346 May, [facility] [place] [address] [id number] [place] [address] Dec, [facility] [place] [facility] [address] [id number] [place] [address]- 2676 Dec, [facility] [address] [facility] [id number] [place] [id number] Dec, [facility] [place] [facility] [address] [facility] [id number] [place] [address]- 9906 Dec, [facility] [place] [facility] [address] [id number] [place] [address]- 0924 Dec, [facility] [place] [facility] [address] [facility] [id number] [place] [address]- 9406 Dec, [facility] [place] [facility] [address] [facility] [id number] [place] [address]- 0416 Nov, [facility] [address] [id number] [place] [id number] Nov, [facility] [address] [id number] [place] [id number] Nov, [facility] [address] [id number] [place] Nov, [facility] [place] [facility] [address] [id number] [place] [address]- 2546 Nov, [facility] [place] [facility] [address] [id number] [place] [address]- 2546 Nov, [facility] [place] [facility] [address] [facility] [id number], [place] [address]- 4858 Nov, [facility] [place] [facility] [address] [facility] [id number], [place] [address]- 7997 Nov, [facility] [place] [facility] [address] [facility] [id number], [place] [address]- 0442 Nov, [facility] [place] [facility] [address] [facility] [id number], [place] [address]- 8188 Nov, [facility] [address] [facility] [id number] [place] [id number] Nov, [facility] [address] [facility] [id number] [place] [id number] Oct, [facility] [place] [facility] [address] [facility] [id number], [place] [address]- 6373 Oct, [facility] [id number] [place] [address] Oct, [facility] [place] [facility] [address] [facility] [id number], [place] [address]- 5607 Oct, [facility] [place] [facility] [address] [facility] [id number], [place] [address]- 1355 Oct, [facility] [address] [id number] [place] [address] Sep, [facility] [place] [facility] [address] [facility] [id number], [place] [address]- 9284 Sep, [facility] [address] [facility] [id number] [place] [address] Sep, [facility] [place] [facility] [address] [facility] [id number], [place] [address]- 8824 Sep, [facility] [place] [facility] [address] [facility] [id number], [place] [address]- 4303 Sep, [facility] [place] [facility] [address] [facility] [id number], [place] [address]- 8522 Sep, [facility] [place] [facility] [address] [facility] [id number], [place] [address]- 2546 Aug, [facility] [address] [id number] [place] [address] Aug, [facility] [address] [facility] [id number] [place] [address]- 2546 Aug, [facility] [address] [id number] [place] [address] Jul, [facility] [place] [facility] [address] [facility] [id number] [place] [address]- 2546 Jul, [facility] [address] [facility] [id number] [place] [id number] Jul, [facility] [place] [facility] [address] [address]- 2546 Jul, [facility] [place] [facility] [address] [id number] [address]- 5926 May, [facility] [place] [facility] [address]00565100[place], [place] [address]- 2546 Apr, [facility] [place] [facility] [address] [id number] [address]- 2546 Apr, [facility] [place] [facility] [address]00565100[place], [place] [address]- 2546 Mar, [facility] [address] [id number] [place] [id number] Feb, [facility] [address] [id number] [place] [id number] Feb, [facility] [address] [id number] [place] [id number] Feb, [facility] [place] [facility] [address] [facility] [id number], [place] [address]- 2546 Feb, [facility] [place] [facility] [address] [facility] [id number], [place] [address]- 2546 January, [facility] [place] [facility] [address] [id number], [place] [address]- 2726 January, [facility] [address] [id number] [place] [id number] Dec, [facility] [address] [id number] [id number] Dec, [facility] [place] [address] [id number] [id number] Dec, [facility] [place] [address] [id number] [id number] Dec, [facility] [address] [id number] [place] [id number] Dec, [facility] [address] [id number] [place] [id number] Dec, [facility] [id number] [place] [address] 87049- 2546 Dec, [facility] [address]00565100[place], [place] [address]- 2546 Dec, [facility] [address] [id number] [place] [address] Nov, [facility] [address] [id number] [place] [address] Nov, [facility] [address] [id number] [place] [address] Nov, [facility] [address]00565100[place], [place] [address]- 1666 Oct, [facility] [address]00565100[place], [place] [address]- 3766 Oct, [facility] [address]00565100[place], [place] [address]- 8604 Sep, [facility] [id number] [place] [address] 39105- 5475 Aug, [facility] [address]00565100[place], [place] [address]- 7636 Aug, [facility] [address]00565100[place], [place] [address]- 8076 Aug, [facility] [place] [facility] [address] [facility] [id number], [place] [address]- 3376 Aug, [facility] [address] [id number] [place] 500[address]853 Aug, [facility] [place] [facility] [address] [facility] [id number] [place] [address] 2546 Aug, [facility] [place] [facility] [address] [address]- 7516 Jul, [facility] [place] [facility] [address] [facility] [id number] [place] [address]- 2546 Jul, [facility] [place] [facility] [address] [address] 2546 Jul, [facility] [place] [facility] [address] [id number], [place] [address]- 2536 Jul, [facility] [id number] [place] [address] Jun, [facility] [address] [id number] [place] 1370638[address] Jun, [facility] [place] [facility] [address]00565100[place], [place] [address]- 2546 Jun, [facility] [id number] [place] [address] Apr, [facility] [place] [facility] [address]00565100[place], [place] [address]- 2546 Apr, [facility] [place] [facility] [address] [facility] [id number], [place] [address]- 2546 Mar, [facility] [address] [facility] [id number] [place] [id number] Feb, [facility] [address] [facility] [id number] [place] 960500590 Feb, [facility] [place] [facility] [address] [id number], [place] [address]- 2546 Feb, [facility] [address] [id number] [place] [address] Feb, [facility] [address] [facility] [id number], [place] [address]- 8333 Feb, [facility] [place] [facility] [address] [facility] [id number], [place] [address]- 9786 Feb, [facility] [place] [facility] [address] [facility] [id number] [place] [address]- 4887 Feb, [facility] [place] [facility] [address] [facility] [id number], [place] [address]- 7846 Feb, [facility] [address] [id number] [place] [id number] January, [facility] [address] [id number] [place] 289[address]350[address] Dec, [facility] [address]00565100[place], [place] [address]- 4016 Dec, [facility] [address]00565100[place], [place] [address]- 4246 Dec, [facility] [address] [id number] [place] [address]57325591 Dec, [facility] [address]00565100[place], [place] [address]- 2546 Dec, [facility] [address] [id number] [place] 841129235 Dec, [facility] [address] [id number] [place] 153485292 Nov, [facility] [address] [id number] [place] 878216654 Nov, [facility] [address] [id number] [place] [id number] Nov, [facility] [address] [id number] [place] 453767851 Nov, [facility] [place] [facility] [address] [facility] [id number], [place] [address]- 2546 Oct, [facility] [address] [id number] [place] [address]14087377 Oct, [facility] [address] [id number] [place] 9[address]4635[place] Oct, [facility] [address] [id number] [place] 359[place]379 Oct, [facility] [address] [id number] [place] [address]64644697 Oct, [facility] [address] [id number] [place] 9227[place] Sep, [facility] [address] [id number] [place] [id number] Sep, [facility] [address] [facility] [id number], [place] [address]- 8195 Sep, [facility] [address]00565100[place], [place] [address]- 3499 Sep, [facility] [address]00565100[place], [place] [address]- 4781 Sep, [facility] [address]00565100[place], [place] [address]- 3647 Sep, [facility] [address]00565100[place], [place] [address]- 0228 Aug, [facility] [address]00565100[place], [place] [address]- 9702 Aug, [facility] [address]00565100[place], [place] [address]- 1303 Aug, [facility] [place] [facility] [address] [facility] [id number], [place] [address]- 6299 Aug, [facility] [place] [facility] [address]00565100[place]- 0200 Aug, [facility] [place] [facility] [address] [facility] [id number], [place]76[place]- 3229 Aug, [facility] [address] [id number], [place] [address]- 5696 Aug, [facility] [place] [facility] [address] [id number] [place] [address] 07 Aug, 2011 [facility] [place] [facility] [address] [id number] [place] [address] 27 Jun, 2011 [facility] [place] [facility] [address] [id number] [place] [address] 27 Jun, 2011 [facility] [place] [facility] [address] [id number] [place] [address] Jun, [facility] [place] [facility] [address] [id number] [place] [address] 19 Jun, 2011 [facility] [place] [facility] [address] [id number] [place] [address] 14 Jun, 2011 [facility] [place] [facility] [address] [id number] [place] [address] 13 Jun, 2011 [facility] [place] [facility] [address] [id number] [place] [address] Jun, [facility] [place] [facility] [address] [id number] [place] [address] Jun, [facility] [place] [facility] [address] [id number] [place] [address] Jun, [facility] [place] [facility] [address] [id number] [place] [address] 14 May, 2011 [facility] [place] [facility] [address] [id number] [place] [address] 10 Apr, 2011 [facility] [place] [facility] [address] [id number] [place] [address] 16 Feb, 2011 [facility] [place] [facility] [address] [id number] [place] [address] 20 Dec, 2010 [facility] [place] [facility] [address] [id number] [place] [address] 28 Aug, 2010 [facility] [place] [facility] [address] [id number] [place] [address] Aug, [facility] [address] [facility] [id number], [place] [address] Aug, [facility] [address] [facility] [id number], [place] [address] Aug, [facility] [address] [facility] [id number], [place] [address] Jul, [facility] [address] [facility] [id number] [address] Jun, [facility] [address] [facility] [id number] [address] [address] Jun, IMMUNIZATIONS No Known Immunizations SOCIAL HISTORY Never Assessed REASON FOR VISIT f/u PLAN OF CARE Activity Details Follow Up 4 Weeks Reason: VITAL SIGNS Height 59 in 2017-11-16 Weight 224.1 lbs 2017-11-16 Heart Rate 72 bpm 2017-11-16 Respiratory Rate 20 2017-11-16 BMI 45.26 kg/m2 2017-11-16 Blood pressure systolic 140 mmHg 2017-11-16 Blood pressure diastolic 92 mmHg 2017-11-16 MEDICATIONS Medication Instructions Dosage Frequency Start Date End Date Duration Status Losartan Potassium-HCTZ 50-12.5 MG Orally twice a day 1 tablet 12h 0 Active Benzonatate 100 mg Orally Three times a day 1 capsule as needed 8h 06 Jul, 2017 Active Ventolin HFA 108 (90 Base) MCG/ACT Inhalation every 4 hrs 2 puffs as needed 4h Active Alprazolam 0.5 MG Orally Three times a day as needed for anxeity 1 tablet 30 days Active Aspir-81 81 MG Orally Once a day 1 tablet 24h Active Atorvastatin Calcium 40 mg Orally Once a day 1 tablet 24h 0 Active Symbicort 160-4.5 MCG/ACT Inhalation Twice a day 2 puffs 12h 0 Active Trazodone HCl 100 MG Orally at night as needed for sleep 0.5 -1 tablet 30 days Active Albuterol Sulfate (2.5 MG/3ML) 0.083% Inhalation Three times a day 3 ml 8h Active Latuda 60 MG Orally every dinner time 1 tablet 30 days Active [place] Carbonate 300 MG Orally daily 2 capsules in morning and one at night 24h 30 days Active RESULTS No Results PROCEDURES [...] Coronary atherosclerosis of unspecified type of vessel, [facility] ira or graft Medical History Coronary atherosclerosis of unspecified type of vessel, [facility] ira or graft Surgical History section x4 Surgical History CABG x3 Surgical History Left arm-Plate and screws placed Hospitalization History Surgery(s)/Childbirth(s) only
--- OUTSIDE RECORDS SUMMARY | 2019-02-02 14:01 | XMS REPORT ---
Author Author RAKESH LEONARD [facility] Address [address] [place] [address] Care Team Providers Care Twister Hand Name Role Phone RAKESH LEONARD Unavailable PROBLEMS Type Condition ICD9-CM Code UEN85-VG Code Onset Dates Condition Status SNOMED Code Problem Coronary artery disease involving coronary bypass graft of [place] heart without angina pectoris I25.810 Active 526263072 Problem Chronic obstructive pulmonary disease with acute exacerbation J44.1 Active 451214600 Problem Mixed hyperlipidemia E78.2 Active 786869920 Problem Bipolar disorder, in partial remission, most recent episode depressed F31.75 Active 90471258 Problem Claudication I73.9 Active 905001170 Problem MESEERT (generalized anxiety disorder) F41.1 Active 34095451 Problem Panic disorder F41.0 Active 303810818 Problem Coronary artery disease involving [place] coronary artery of un[place] heart without angina pectoris I25.10 Active 0729750694335 Problem Mood disorder F39 Active 49213330 Problem Obesity (BMI 30-39.9) E66.9 Active 519219811 Problem Bipolar 1 disorder F31.9 Active 114742085 Problem PTSD (post-traumatic stress disorder) F43.10 Active 57692112 Problem Sleep apnea in adult G47.30 Active 91705866 Problem Essential hypertension I10 Active 33854382 Problem COPD mixed type J44.9 Active 99995408 ALLERGIES No Information ENCOUNTERS Encounter Location Date Diagnosis [facility] [address] [facility] [id number], [place] [address] Apr, [facility] [address] [facility] [id number], [place] [address] Mar, [facility] [address] [facility] [id number] [id number] Mar, [facility] [address] [facility] [id number], [place] [address] Feb, Bipolar disorder, in partial remission, most recent episode depressed F31.75 ; MESERET (generalized anxiety disorder) F41.1 ; Panic disorder F41.0 and BMI 45.0-49.9, adult Z68.42 [place] [address], [place] [address] Feb, Bipolar 1 disorder, depressed F31.9 ; PTSD (post-traumatic stress disorder) F43.10 and Panic attacks F41.0 [place] [address] [place] [address]- [address] Feb, High risk medication use Z79.899 [place] [address] [place] [id number] [place] [address]- [address] January, High risk medication use Z79.899 ; Bipolar disorder, in partial remission, most recent episode depressed F31.75 ; MESERET (generalized anxiety disorder) F41.1 ; Panic disorder F41.0 and BMI 45.0-49.9, adult Z68.42 [place] [id number] [place] [address]- 2670 January, Bipolar 1 disorder, depressed F31.9 ; PTSD (post-traumatic stress disorder) F43.10 and Panic attacks F41.0 [place] [address], [place] [address] January, Bipolar 1 disorder, depressed F31.9 ; PTSD (post-traumatic stress disorder) F43.10 and Panic attacks F41.0 [place] [address], [place] [address] Dec, BMI 45.0-49.9, adult Z68.42 ; Bipolar disorder, in partial remission, most recent episode depressed F31.75 ; MSEERET (generalized anxiety disorder) F41.1 and Panic disorder F41.0 [place] [address] [place] [address] 00927- 8944 Dec, Bipolar 1 disorder, depressed F31.9 ; PTSD (post-traumatic stress disorder) F43.10 and Panic attacks F41.0 [facility] [address] [id number], [place] [address] Nov, Bipolar disorder, in partial remission, most recent episode depressed F31.75 ; MESERET (generalized anxiety disorder) F41.1 and Panic disorder F41.0 [facility] [address], [place] [address] Nov, [facility] [id number] [place] [address]- 8453 Nov, [facility] [address] [place] [address]62- 9669 Oct, BMI 45.0-49.9, adult Z68.42 ; Bipolar disorder, in partial remission, most recent episode depressed F31.75 ; MESERET (generalized anxiety disorder) F41.1 and Panic disorder F41.[address] [id number] [id number] 23 Oct, 2017 BMI 45.0-49.9, adult Z68.42 ; Coronary artery disease involving un[place] coronary artery of un[place]et heart without angina pectoris I25.10 ; Hx of CABG Z95.1 ; Dyspnea on exertion R06.09 ; Essential hypertension I10 ; Mixed hyperlipidemia E78.2 ; Claudication I73.9 and Tobacco use Z72.0 [facility] [address] [id number] [address] 15 Oct, 2017 BMI 45.0-49.9, adult Z68.42 ; Bipolar 1 disorder, depressed F31.9 and Abscess L02.91 [facility] [address] [id number], [place] [address] 14 Oct, 2017 Bipolar 1 disorder, depressed F31.9 ; PTSD (post-traumatic stress disorder) F43.10 and Panic attacks F41.0 [facility] [address] [id number], [place] [address] Sep, BMI 40.0-44.9, adult Z68.41 ; Mood disorder F39 ; MESERET ( generalized anxiety disorder) F41.1 and Panic disorder F41.0 [place] [address] [place] [id number] [place] [address]- 4274 Sep, BMI 40.0-44.9, adult Z68.41 [place] [address] [place] [id number] [place] [address] 71523- 9626 Sep, Bipolar 1 disorder, depressed F31.9 ; PTSD (post-traumatic stress disorder) F43.10 and Panic attacks F41.0 [place] [address] [place] [id number] [place] [address]- 0713 Aug, BMI 40.0-44.9, adult Z68.41 ; Mood disorder F39 ; MESERET ( generalized anxiety disorder) F41.1 and Panic disorder F41.0 [place] [address] [place] [id number] [place] [address] 24878- 2917 Aug, Bipolar 1 disorder, depressed F31.9 ; PTSD (post-traumatic stress disorder) F43.10 and Panic attacks F41.0 [facility] [id number] [place] [id number] Aug, [facility] [id number] [place] [address] [id number] Aug, COPD mixed type J44.9 [place] [address] [place] [address] 24[address]- 7930 Aug, [place] [address] [place] [id number] [place] [address] 27782- 7973 Jul, PTSD (post-traumatic stress disorder) F43.10 ; Panic disorder F41.0 ; MESERET (generalized anxiety disorder) F41.1 ; Mood disorder F39 and BMI 40.0-44.9, adult Z68.41 [place] [address] [place] [id number] [place] [address] 26878- 8107 Jul, Bipolar 1 disorder, depressed F31.9 ; PTSD (post-traumatic stress disorder) F43.10 and Panic attacks F41.0 [facility] [address] [id number] [place] [address] [id number] Jul, Bipolar 1 disorder, depressed F31.9 [place] [id number] [address] Jul, Anxiety F41.9 ; COPD mixed type J44.9 ; Essential hypertension I10 ; Bipolar 1 disorder F31.9 ; High risk medication use Z79.899 ; BMI 40.0-44.9, adult Z68.41 and Coronary artery disease involving coronary bypass graft of un[place]et heart without angina pectoris I25.[address] [id number] Jul, Chronic obstructive pulmonary disease with acute exacerbation J44.1 and Acute nasopharyngitis J00 [address] [place] [address] [id number] Jul, Anxiety F41.9 ; Mixed hyperlipidemia E78.2 and Bipolar 1 disorder F31.9 [facility] [address] [id number] [place] [address] Jun Bipolar 1 disorder F31.9 [facility] [address] [id number] [place] [address] [address] [id number] [address] Jun, Anxiety F41.9 ; Elevated blood sugar R73.9 ; Mixed hyperlipidemia E78.2 ; COPD mixed type J44.9 ; Essential hypertension I10 ; Bipolar 1 disorder F31.9 ; Coronary artery disease involving coronary bypass graft of [place] heart without angina pectoris I25.810 ; High risk medication use Z79.899 ; Controlled substance agreement signed Z79.899 ; Elevated fasting glucose R73.01 ; Encounter for immunization Z23 and BMI 40.0-44.9, adult Z68.41 [address] [id number] Jun, Elevated blood sugar R73.9 [place] [id number] [id number] Jun, [address] [id number] Jun, Bipolar 1 disorder F31.9 ; Obesity (BMI 30-39.9) E66.9 ; Coronary artery disease involving coronary bypass graft of [place] heart without angina pectoris I25.810 and Essential hypertension I10 [address] [id number] Jun, Coronary artery disease involving coronary bypass graft of [place] heart without angina pectoris I25.810 ; Bipolar 1 disorder F31.9 ; Anxiety F41.9 ; Essential hypertension I10 ; COPD mixed type J44.9 and Mixed hyperlipidemia E78.2 [place] [id number] [place] [id number] May, Severe single current episode of major depressive disorder, 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.2 ; Bipolar 1 disorder F31.9 ; Anxiety F41.9 ; PTSD (post -traumatic stress disorder) F43.10 ; Coronary artery disease involving coronary bypass graft of un[place] heart without angina pectoris I25.810 ; Sleep apnea in adult G47.30 ; Essential hypertension I10 ; High risk medication use Z79.899 ; Obesity (BMI 30-39.9) E66.9 ; Encounter for therapeutic drug level monitoring Z51.81 and COPD mixed type J44.[address] [place] [address] [id number] May, Severe single current episode of major depressive disorder, 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.2 ; Bipolar 1 disorder F31.9 ; Anxiety F41.9 ; PTSD (post -traumatic stress disorder) F43.10 ; Mixed hyperlipidemia E78.2 ; Coronary artery disease involving coronary bypass graft of [place] heart without angina pectoris I25.810 ; Sleep apnea in adult G47.30 ; Essential hypertension I10 ; High risk medication use Z79.899 ; Controlled substance agreement signed Z79.899 ; Obesity (BMI 30-39.9) E66.9 ; Tobacco abuse Z72.0 ; Tobacco abuse counseling Z71.6 and COPD mixed type J44.9 [id number] [id number] May, [facility] [address] [id number] [address] Dec, [facility] [place] [facility] [address] [id number] [place] [address]- 2546 Dec, [facility] [place] [facility] [address] [id number] [place] [address]- 2546 May, [facility] [place] [facility] [address] [id number] [place] [address]- 2546 May, [facility] [place] [address] [id number] [place] [id number] Dec, [facility] [place] [facility] [address] [id number] [place] [address]- 2546 Dec, [facility] [place] [address] [id number] [place] [id number] Dec, [facility] [place] [facility] [address] [facility] [id number] [place] [address]- 2546 Dec, [facility] [place] [facility] [address] [facility] [id number] [place] [address]- 2546 Dec, [facility] [place] [facility] [address] [id number] [place] [address]- 2546 Dec, [facility] [place] [facility] [address] [facility] [id number] [place] [address]- 2546 Nov, [facility] [place] [address] [id number][place] [id number] Nov, [facility] [address] [id number][place] [id number] Nov, [facility] [place] [address] [facility] [id number][place] [address] Nov, [facility] [place] [facility] [address] [id number] [place] [address]- 2546 Nov, [facility] [place] [facility] [address] [facility] [id number] [place] [address]- 2546 Nov, [facility] [place] [facility] [address] [facility] [id number] [place] [address]- 2546 Nov, [facility] [place] [facility] [address] [facility] [id number], [place] [address]- 4638 Nov, [facility] [place] [facility] [address] [facility] [id number], [place] [address]- 9038 Nov, [facility] [place] [facility] [address] [facility] [id number], [place] [address]- [address] Nov, [facility] [place] [address] [facility] [id number][place] [id number] Nov, [facility] [place] [address] [facility] [id number], [place] [id number] Oct, [facility] [place] [facility] [address] [facility] [id number], [place] [address]- 0956 Oct, [facility] [place] [address] [facility] [id number][place] [address] Oct, [facility] [place] [facility] [address], [place] [address]- [address]36 Oct, [facility] [place] [facility] [address] [address] [id number], [place] [address]- 9657 Oct, [facility] [place] [address] [id number][place] [address] Sep, [facility] [place] [facility] [address] [id number], [place] [address]- 4437 Sep, [facility] [place] [address] [id number], [place] [id number] Sep, [facility] [place] [facility] [address] [facility] [id number], [place] [address]- 9333 Sep, [facility] [place] [facility] [address] [facility] [id number], [place] [address]- 9113 Sep, [facility] [place] [facility] [address] [facility] [id number], [place] [address]- 9336 Sep, [facility] [place] [facility] [address] [facility] [id number], [place] [address]- 9325 Aug, [facility] [place] [address] [facility] [id number][place] [id number] Aug, [facility] [address] [facility] [id number], [place] [address]- 2546 Aug, [facility] [place] [address] [id number], [place] [id number] Jul, [facility] [address] [facility] [id number], [place] [address] 2546 Jul, [facility] [address] [id number], [place] [id number] Jul, [facility] [address] [id number] [place] [address]- 7726 Jul, [facility] [place] [facility] [address] [facility] [id number] [place] [address]- 2546 May, [facility] [address] [id number] [address]- 6536 Apr, [facility] [address] [id number], [place] [address]- 2546 Apr, [facility] [address] [facility] [id number], [place] [address]- 7116 Mar, [facility] [address] [id number], [place] [address]500[address]609 Feb, [facility] [address] [id number], [place] 12[address] Feb, [facility] [address] [id number], [place] 9[address] Feb, [facility] [place] [facility] [address] [facility] [id number], [place] [address]- 2546 Feb, [facility] [place] [facility] [address] [facility] [id number], [place] [address]- 2546 January, [facility] [place] [facility] [address] [facility] [id number], [place] [address]- 2546 January, [facility] [address] [id number][place] [address]1972 Dec, [facility] [place] [address] [id number] [place] [id number] Dec, [facility] [place] [address] [id number] [place] [address] Dec, [facility] [place] [address] [id number] [place] [id number] Dec, [facility] [place] [address] [id number] [place] 96[address] Dec, [facility] [place] [address] [id number] [place] [address] Dec, [facility] [address] [facility] [id number], [place] [address]- 2546 Dec, [facility] [place] [facility] [address] [facility] [id number] [place] [address]- 2546 Dec, [facility] [address] [id number] [place] [id number] Nov, [facility] [address] [id number] [place] [address] Nov, [facility] [address] [id number] [place] [address] Nov, [facility] [address], [place] [address]- [address] Oct, [facility] [place] [facility] [address]100[place], [place] [address]- 6396 Oct, [facility] [place] [facility] [address], [place] [address]- 1799 Sep, [facility] [place] [facility] [address], [place] [address]- 7673 Aug, [facility] [place] [facility] [address] [id number], [place] [address]- 4741 Aug, [facility] [place] [facility] [address] [id number], [place] [address]- 9262 Aug, [facility] [place] [facility] [address], [place] [address]- 6461 Aug, [facility] [place] [address] [facility] [id number], [place] [address] Aug, [facility] [place] [facility] [address] [facility] [id number] [place] [address]- 8956 Aug, [facility] [place] [facility] [address] [id number], [place] [address] 2546 Jul, [facility] [place] [facility] [address], [place] [address]- 8936 Jul, [facility] [place] [facility] [address] [facility] [id number], [place] [address]- 2546 Jul, [facility] [place] [facility] [address] [place] [address]- 6326 Jul, [facility] [address] [id number], [place] [id number] Jun, [facility] [id number], [place] [address] Jun, [facility] [place] [facility] [address], [place] [address] 2546 Jun, [facility] [place] [address] [facility] [id number], [place] [address]265 Apr, [facility] [place] [facility] [address], [place] [address] 2546 Apr, [facility] [place] [facility] [address], [place] [address]- 2546 Mar, [facility] [place] [address] [facility] [id number], [place] 2[address]69597 Feb, [facility] [address] [facility] [id number], [place] 53[address]87644 Feb, [facility] [place] [facility] [address] [facility] [id number], [place] [address]- 2546 Feb, [facility] [address] [facility] [id number], [place] 121167859 Feb, [facility] [place] [facility] [address]100[place], [place] [address]- 5986 Feb, [facility] [address] [facility] [id number], [place] [address]- 2546 Feb, [facility] [place] [facility] [address] [facility] [id number], [place] [address]- 2546 Feb, [facility] [place] [facility] [address] [facility] [id number], [place] [address]- 2546 Feb, [facility] [address] [id number], [place] 582020672 January, [facility] [address] [id number], [place] 322839862 Dec, [facility] [place] [facility] [address] [facility] [id number], [place] [address]- 2546 Dec, [facility] [place] [facility] [address], [place] [address]- 2546 Dec, [facility] [address] [id number], [place] 003506674 Dec, [facility] [address] [id number], [place] [address]- 2546 Dec, [facility] [address] [id number], [place] 606866588 Dec, [facility] [address] [id number], [place] 157054569 Nov, [facility] [address] [id number], [place] 963531440 Nov, [facility] [address] [id number], [place] 796031332 Nov, [facility] [address] [id number], [place] 215976578 Nov, [facility] [place] [facility] [address] [facility] [id number], [place] [address]- 2546 Oct, [facility] [address] [id number], [place] 840504182 Oct, [facility] [address] [id number], [place] 300452182 Oct, [facility] [address] [facility] [id number] [place] [id number] Oct, [facility] [place] [address] [facility] [id number] [place] [id number] Oct, [facility] [place] [address] [facility] [id number] [place] [id number] Sep, [facility] [address] [facility] [id number] [place] [id number] Sep, [facility] [address] [facility] [id number], [place] [address]- 3316 Sep, [facility] [id number] [place] [address]95- 4005 Sep, [facility] [id number] [place] [address]43- 4667 Sep, [facility] [id number] [place] [address]32- 3692 Sep, [facility] [id number] [address] Aug, [facility] [address] [id number] [address] Aug, [facility] [id number] [address] Aug, [facility] [id number] [address] Aug, [facility] [place] [facility] [id number] [address] Aug, [facility] [place] [facility] [id number] Aug, [facility] [place] [facility] [id number] [address] Aug, [facility] [place] [facility] [id number] Aug, [facility] [place] [facility] [address] [id number] [place] [address] 27 Jun, 2011 [facility] [place] [facility] [address] [id number] [place] [address]- 8770 27 Jun, 2011 [facility] [place] [facility] [address] [id number] [place] [address] 2279 19 Jun, 2011 [facility] [place] [facility] [address] [id number] [place] [address]- 2646 19 Jun, 2011 [facility] [place] [facility] [address] [id number] [place] [address] 2847 14 Jun, 2011 [facility] [place] [facility] [address] [id number] [place] [address]- 1180 13 Jun, 2011 [facility] [place] [facility] [address] [id number] [place] [address]- 3411 12 Jun, 2011 [facility] [place] [facility] [address] [id number] [place] [address]- 7154 12 Jun, 2011 [facility] [place] [facility] [address] [id number] [place] [address]- 7679 12 Jun, 2011 [facility] [place] [facility] [address] [id number] [place] [address]- 1703 14 May, 2011 [facility] [place] [facility] [address] [id number] [place] [address] 10 Apr, 2011 [facility] [place] [facility] [address] [id number] [place] [address]- 8379 16 Feb, 2011 [facility] [place] [facility] [address] [id number] [place] [address]- 7228 20 Dec, 2010 [facility] [place] [facility] [address] [id number] [place] [address]- 3437 28 Aug, 2010 [facility] [place] [facility] [address] [id number] [place] [address] 28 Aug, 2010 [facility] [place] [facility] [address] [id number] [place] [address] Aug, [facility] [address] [facility] [id number] [address] Aug, [facility] [id number] [address] Jul, [facility] [address] [facility] [id number], [place] [address] Jun, [facility] [id number] [address] Jun, IMMUNIZATIONS No Known Immunizations SOCIAL HISTORY Never Assessed REASON FOR VISIT PA for ISELA PLAN OF CARE VITAL SIGNS MEDICATIONS Unknown [...] Coronary atherosclerosis of unspecified type of vessel, [place] or graft Medical History Coronary atherosclerosis of unspecified type of vessel, [place] or graft Surgical History section x4 Surgical History CABG x3 Surgical History Left arm-Plate and screws placed Hospitalization History Surgery(s)/Childbirth(s) only
--- OUTSIDE RECORDS SUMMARY | 2019-02-02 14:02 | XMS REPORT ---
Author Author ЕКАТЕРИНА MTZ [facility] Address [address] [place] [address] Care Team Providers Care Data Processing Control Clerk Name Role Phone ЕКАТЕРИНА MTZ Unavailable PROBLEMS Type Condition ICD9-CM Code XMG18-QV Code Onset Dates Condition Status SNOMED Code Problem Coronary artery disease involving coronary bypass graft of twin [place] heart without angina pectoris I25.810 Active 800296896 Problem Chronic obstructive pulmonary disease with acute exacerbation J44.1 Active 964387319 Problem Mixed hyperlipidemia E78.2 Active 119174698 Problem Bipolar disorder, in partial remission, most recent episode depressed F31.75 Active 27370811 Problem Claudication I73.9 Active 549359704 Problem MESERET (generalized anxiety disorder) F41.1 Active 52133892 Problem Panic disorder F41.0 Active 466174402 Problem Coronary artery disease involving twin hills coronary artery of [place] heart without angina pectoris I25.10 Active 9549404064824 Problem Mood disorder F39 Active 71971134 Problem Obesity (BMI 30-39.9) E66.9 Active 153968780 Problem Bipolar 1 disorder F31.9 Active 188416960 Problem PTSD (post-traumatic stress disorder) F43.10 Active 36571689 Problem Sleep apnea in adult G47.30 Active 54754767 Problem Essential hypertension I10 Active 82752097 Problem COPD mixed type J44.9 Active 20795016 ALLERGIES No Information ENCOUNTERS Encounter Location Date Diagnosis [facility] [address] [id number] [id number] Feb, [facility] [address] [facility] [id number] [address] [address] January, [facility] [address] [facility] [id number], [place] [address] January, [facility] [address] [facility] [id number] [place] [address]284- 5944 January, Bipolar 1 disorder, depressed F31.9 ; PTSD (post-traumatic stress disorder) F43.10 and Panic attacks F41.0 [facility] [address] [place] [address]121- 7326 Dec, BMI 45.0-49.9, adult Z68.42 ; Bipolar disorder, in partial remission, most recent episode depressed F31.75 ; MESERET (generalized anxiety disorder) F41.1 and Panic disorder F41.0 [facility] [address] [place] [address]56- 8893 Dec, Bipolar 1 disorder, depressed F31.9 ; PTSD (post-traumatic stress disorder) F43.10 and Panic attacks F41.0 [facility] [address]00565[address] [address] Nov, Bipolar disorder, in partial remission, most recent episode depressed F31.75 ; MESERET (generalized anxiety disorder) F41.1 and Panic disorder F41.0 [facility] [address]00565100[place] [address] Nov, [facility] [id number] [place] [address] 43515- 0032 Nov, [facility] [address] [place] [address] 28314- 7257 Oct, BMI 45.0-49.9, adult Z68.42 ; Bipolar disorder, in partial remission, most recent episode depressed F31.75 ; MESERET (generalized anxiety disorder) F41.1 and Panic disorder F41.0 [place] [address] [facility] [address] [id number] [address] Oct, BMI 45.0-49.9, adult Z68.42 ; Coronary artery disease involving twin hills coronary artery of [place] heart without angina pectoris I25.10 ; Hx of CABG Z95.1 ; Dyspnea on exertion R06.09 ; Essential hypertension I10 ; Mixed hyperlipidemia E78.2 ; Claudication I73.9 and Tobacco use Z72.0 [facility] [id number] [address] 15 Oct, 2017 BMI 45.0-49.9, adult Z68.42 ; Bipolar 1 disorder, depressed F31.9 and Abscess L02.91 [facility] [address]00565100[place] [address] 14 Oct, 2017 Bipolar 1 disorder, depressed F31.9 ; PTSD (post-traumatic stress disorder) F43.10 and Panic attacks F41.0 [place] [address] [place] [address] 57885- 0092 Sep, BMI 40.0-44.9, adult Z68.41 ; Mood disorder F39 ; MESERET ( generalized anxiety disorder) F41.1 and Panic disorder F41.0 [place] [id number] [place] [address] 75531- 9455 Sep, BMI 40.0-44.9, adult Z68.41 [place] [id number] [place] [address]15- 9805 Sep, Bipolar 1 disorder, depressed F31.9 ; PTSD (post-traumatic stress disorder) F43.10 and Panic attacks F41.0 [place] [address] [place] [address] 58390- 7627 Aug, BMI 40.0-44.9, adult Z68.41 ; Mood disorder F39 ; MESERET ( generalized anxiety disorder) F41.1 and Panic disorder F41.0 [place] [address]00565100[place] [address] Aug, Bipolar 1 disorder, depressed F31.9 ; PTSD (post-traumatic stress disorder) F43.10 and Panic attacks F41.0 [facility] [id number] [place] [id number] Aug, [facility] [id number] [place] [id number] Aug, COPD mixed type J44.9 [place] [address] [id number] [address] Aug, [facility] [address] [place] [address] 65093- 9087 Jul, PTSD (post-traumatic stress disorder) F43.10 ; Panic disorder F41.0 ; MESERET (generalized anxiety disorder) F41.1 ; Mood disorder F39 and BMI 40.0-44.9, adult Z68.41 [facility] [address]00565100[place], [place] [address] Jul, Bipolar 1 disorder, depressed F31.9 ; PTSD (post-traumatic stress disorder) F43.10 and Panic attacks F41.0 [address] [place] [address] [id number] Jul, Bipolar 1 disorder, depressed F31.9 [address] [place] [address] [id number] Jul, Anxiety F41.9 ; COPD mixed type J44.9 ; Essential hypertension I10 ; Bipolar 1 disorder F31.9 ; High risk medication use Z79.899 ; BMI 40.0-44.9, adult Z68.41 and Coronary artery disease involving coronary bypass graft of twin [place] heart without angina pectoris I25.810 [address] [place] [address] [id number] Jul, Chronic obstructive pulmonary disease with acute exacerbation J44.1 and Acute nasopharyngitis J00 [address] [place] [address] [id number] Jul, Anxiety F41.9 ; Mixed hyperlipidemia E78.2 and Bipolar 1 disorder F31.9 [facility] [address] [id number] [place] [address] Jun Bipolar 1 disorder F31.9 [facility] [address] [id number] [place] [address] [address] [place] [id number] [id number] Jun, Anxiety F41.9 ; Elevated blood sugar R73.9 ; Mixed hyperlipidemia E78.2 ; COPD mixed type J44.9 ; Essential hypertension I10 ; Bipolar 1 disorder F31.9 ; Coronary artery disease involving coronary bypass graft of twin [place] heart without angina pectoris I25.810 ; High risk medication use Z79.899 ; Controlled substance agreement signed Z79.899 ; Elevated fasting glucose R73.01 ; Encounter for immunization Z23 and BMI 40.0-44.9, adult Z68.41 [facility] [id number] [place] [address] [id number] Jun, Elevated blood sugar R73.9 [facility] [id number] [place] [address] [phone] Jun, [facility] [id number] [place] [address] [id number] Jun, Bipolar 1 disorder F31.9 ; Obesity (BMI 30-39.9) E66.9 ; Coronary artery disease involving coronary bypass graft of [place] heart without angina pectoris I25.810 and Essential hypertension I10 [facility] [id number] [place] [address] [id number] Jun, Coronary artery disease involving coronary bypass graft of [place] heart without angina pectoris I25.810 ; Bipolar 1 disorder F31.9 ; Anxiety F41.9 ; Essential hypertension I10 ; COPD mixed type J44.9 and Mixed hyperlipidemia E78.2 [facility] [id number] [place] [address] [id number] May, Severe single current episode of major depressive disorder, 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.2 ; Bipolar 1 disorder F31.9 ; Anxiety F41.9 ; PTSD (post -traumatic stress disorder) F43.10 ; Coronary artery disease involving coronary bypass graft of twin [place] heart without angina pectoris I25.810 ; Sleep apnea in adult G47.30 ; Essential hypertension I10 ; High risk medication use Z79.899 ; Obesity (BMI 30-39.9) E66.9 ; Encounter for therapeutic drug level monitoring Z51.81 and COPD mixed type J44.9 [facility] [id number] [place] [address] [id number] May, Severe single current episode of major depressive disorder, 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.2 ; Bipolar 1 disorder F31.9 ; Anxiety F41.9 ; PTSD (post -traumatic stress disorder) F43.10 ; Mixed hyperlipidemia E78.2 ; Coronary artery disease involving coronary bypass graft of twin [place] heart without angina pectoris I25.810 ; Sleep apnea in adult G47.30 ; Essential hypertension I10 ; High risk medication use Z79.899 ; Controlled substance agreement signed Z79.899 ; Obesity (BMI 30-39.9) E66.9 ; Tobacco abuse Z72.0 ; Tobacco abuse counseling Z71.6 and COPD mixed type J44.9 [facility] [id number] [place] [address] [id number] May, [facility] [address] [id number]- [address]012 Dec, [facility] [id number] [place] [address] 88922- 0094 Dec, [facility] [id number] [place] [address] 58712- 4179 May, [facility] [id number] [place] [address] 84958- 8164 May, [facility] [id number] [place] [address] [id number] Dec, [facility] [id number] [place] [address] 60543- 7496 Dec, [facility] [id number] [place] [address] [id number] Dec, [facility] [id number] [place] [address] [id number]- 4056 Dec, [facility] [id number] [place] [address] 552989- 6398 Dec, [facility] [id number] [place] [address] [phone]- 6297 Dec, [facility] [id number] [place] [address] [id number]- 6059 Nov, [facility] [address] [id number] [id number] 17 Nov, 2013 [facility] [address] [id number] [place] [id number] Nov, [facility] [address] [id number] [place] [id number] Nov, [facility] [place] [facility] [address] [facility] [id number] [place] [address] 2546 Nov, [facility] [place] [facility] [address] [facility] [id number] [place] [address] 2546 Nov, [facility] [place] [facility] [address] [facility] [id number] [place] [address]- 2786 Nov, [facility] [place] [facility] [address] [facility] [id number] [address]- 7326 Nov, [facility] [place] [facility] [address] [id number], [place] [address]- 5717 Nov, [facility] [place] [facility] [address] [facility] [id number], [place] [address]- 4226 Nov, [facility] [address] [facility] [id number] [place] [id number] Nov, [facility] [address] [facility] [id number] [place] [id number] Oct, [facility] [place] [facility] [address] [id number], [place] [address]- 2546 Oct, [facility] [address] [facility] [id number] [place] [id number] Oct, [facility] [place] [facility] [address] [facility] [id number], [place] [address]- 8926 Oct, [facility] [place] [facility] [address] [facility] [id number] [address]- 2546 Oct, [facility] [address] [facility] [id number] [place] [id number] Sep, [facility] [place] [facility] [address] [id number] [address]- 0630 Sep, [facility] [address] [id number] [place] [id number] Sep, [facility] [place] [facility] [address] [facility] [id number] [place] [address]- 2546 Sep, [facility] [place] [facility] [address] [facility] [id number] [place] [address]- 2546 Sep, [facility] [place] [facility] [address] [facility] [id number] [place] [address]- 2546 Sep, [facility] [place] [facility] [address] [facility] [id number] [place] [address]- 2546 Aug, [facility] [address] [id number] [place] [id number] Aug, [facility] [address] [place] [address]- 2546 Aug, [facility] [address] [id number] [address] Jul, [facility] [address] [facility] [id number] [address]- 2546 Jul, [facility] [address] [id number] [place] [address] Jul, [facility] [address] [facility] [id number] [address]- 2546 Jul, [facility] [place] [facility] [address] [id number], [place] [address]- 2546 May, [facility] [place] [facility] [address] [facility] [id number], [place] [address]- 2546 Apr, [facility] [place] [facility] [address] [facility] [id number], [place] [address]- 2546 Apr, [facility] [place] [facility] [address] [facility] [id number], [place] [address]- 2546 Mar, [facility] [address] [facility] [id number] [place] [id number] Feb, [facility] [address] [id number] [place] [id number] Feb, [facility] [address] [id number] [place] [address]87[address] Feb, [facility] [address] [facility] [id number] [address]- 8567 Feb, [facility] [address] [facility] [id number][place] [address]1340- 5812 January, [facility] [address] [facility] [id number] [address] 4659 January, [facility] [address] [id number] [place] [id number] Dec, [facility] [address] [id number] [place] Dec, [facility] [address] [id number] [place] [id number] Dec, [facility] [address] [id number] [place] Dec, [facility] [address] [id number] [place] [id number] Dec, [facility] [address] [id number] [place] [address]39[address] Dec, [facility] [address]00565100[place], [place] [address]- 5435 Dec, [facility] [address] [facility] [id number] [address]- 5879 Dec, [facility] [address] [id number] [place] [address] Nov, [facility] [address] [id number] [id number] Nov, [facility] [address] [facility] [id number] [place] 385[address]99[address] Nov, [facility] [address]00565100[place], [place] [address]- 2342 Oct, [facility] [address] [id number], [place] [address]- 2546 Oct, [facility] [address] [id number] [place] [address]- 2546 Sep, [facility] [place] [facility] [address] [facility] [id number], [place] [address]- 1516 Aug, [facility] [place] [facility] [address] [facility] [id number] [place] [address]- 2546 Aug, [facility] [place] [facility] [address] [facility] [id number], [place] [address]- 2546 Aug, [facility] [place] [facility] [address] [facility] [id number], [place] [address]- 0236 Aug, [facility] [address] [facility] [id number] [place] [id number] Aug, [facility] [place] [facility] [address]00565100[place], [place] [address]- 9946 Aug, [facility] [place] [facility] [address] [facility] [id number] [address]- 2636 Jul, [facility] [place] [facility] [address] [facility] [id number] [address]- 1446 Jul, [facility] [place] [facility] [address] [facility] [id number], [place] [address]- 2546 Jul, [facility] [address] [facility] [id number], [place] [address]- 2546 Jul, [facility] [address] [facility] [id number] [place] 417473577 Jun, [facility] [address] [facility] [id number] [place] [address]79146427 Jun, [facility] [place] [facility] [address] [facility] [id number] [address]- 2546 Jun, [facility] [address] [facility] [id number] [place] 805391856 Apr, [facility] [place] [facility] [address] [facility] [id number], [place] [address]- 2546 Apr, [facility] [place] [facility] [address] [id number], [place] [address]- 3396 Mar, [facility] [address] [id number] [place] [id number] Feb, [facility] [address] [id number] [place] [id number] Feb, [facility] [place] [facility] [address] [facility] [id number], [place] [address]- 6066 Feb, [facility] [address] [id number] [id number] Feb, [facility] [place] [facility] [address] [facility] [id number], [place] [address]- 0756 Feb, [facility] [place] [facility] [address] [facility] [id number], [place] [address]- 1346 Feb, [facility] [place] [facility] [address] [id number], [place] [address]- 7476 Feb, [facility] [place] [facility] [address] [facility] [id number], [place] [address]- 2696 Feb, [facility] [address] [id number] [place] [id number] January, [facility] [address] [id number] [place] 888792246 Dec, [facility] [place] [facility] [address] [facility] [id number], [place] [address]- 8016 Dec, [facility] [place] [facility] [address] [facility] [id number], [place] [address]- 2546 Dec, [facility] [address] [id number] [place] 731104314 Dec, [facility] [place] [facility] [address] [facility] [id number], [place] [address]- 2546 Dec, [facility] [address] [id number] [place] [id number] Dec, [facility] [address] [id number] [place] 556326029 Nov, [facility] [address] [id number] [id number] Nov, [facility] [address] [id number] [place] 034372425 Nov, [facility] [address] [id number] [place]63[place] Nov, [facility] [address] [facility] [id number], [place] [address]- 2546 Oct, [facility] [address] [id number] [place] 034417190 Oct, [facility] [address] [id number] [place] [id number] Oct, [facility] [address] [id number] [id number] Oct, [facility] [address] [id number] [place] [address]821533[address] Oct, [facility] [address] [id number] [place] Sep, [facility] [address] [id number] [place] [id number] Sep, [facility] [place] [facility] [address]00565100[place]- 4113 Sep, [facility] [place] [facility] [address]00565100[place], [place] [address]- 7851 Sep, [facility] [place] [facility] [address]00565100[place], [place] [address]- 7451 Sep, [facility] [place] [facility] [address] [facility] [id number], [place] [address]- 8065 Sep, [facility] [place] [facility] [address]00565100[place], [place] [address]- 7164 Aug, [facility] [place] [facility] [address]00565100[place], [place] [address]- 3792 Aug, [facility] [place] [facility] [address] [id number] [place] [address]- 9605 Aug, [facility] [place] [facility] [address] [id number] [place] [address]- 4793 Aug, [facility] [place] [facility] [address] [id number] [place] [address]- 9645 Aug, [facility] [place] [facility] [address] [id number] [place] [address]- 3242 Aug, [facility] [place] [facility] [address] [id number] [place] [address]- 0696 Aug, [facility] [place] [facility] [address] [id number] [place] [address]- 7108 Aug, [facility] [place] [facility] [address] [id number] [place] [address]- 1902 Jun, [facility] [place] [facility] [address] [id number] [place] [address]- 2400 27 Jun, 2011 [facility] [place] [facility] [address] [id number] [place] [address]- 2444 Jun, [facility] [place] [facility] [address] [id number] [place] [address]- 3495 19 Jun, 2011 [facility] [place] [facility] [address] [id number] [place] [address]- 0008 14 Jun, 2011 [facility] [place] [facility] [address] [id number] [place] [address]- 7385 13 Jun, 2011 [facility] [place] [facility] [address] [id number], [place] [address]- 9019 12 Jun, 2011 [facility] [place] [facility] [address] [id number] [place] [address]- 2906 12 Jun, 2011 [facility] [place] [facility] [address] [id number], [place] [address] 12 Jun, 2011 [facility] [place] [facility] [address] [id number], [place] [address] 14 May, 2011 [facility] [place] [facility] [address] [id number] [address] Apr, [facility] [id number] [address] 16 Feb, 2011 [facility] [id number] [address] Dec, [facility] [id number] [address] Aug, [facility] [id number] [address] Aug, [facility] [id number] [place] [address] Aug, [facility] [id number] [place] [address] [id number]- [address] Aug, [facility] [id number], [place] [address] Jul, [facility] [id number] [address] Jun, [facility] [id number], [place] [address] Jun, IMMUNIZATIONS No Known Immunizations SOCIAL HISTORY Never Assessed REASON FOR VISIT Returning Call PLAN OF CARE VITAL SIGNS MEDICATIONS Unknown [...] Coronary atherosclerosis of unspecified type of vessel, twin hills or graft Medical History Coronary atherosclerosis of unspecified type of vessel, twin hills or graft Surgical History section x4 Surgical History CABG x3 Surgical History Left arm-Plate and screws placed Hospitalization History Surgery(s)/Childbirth(s) only
--- OUTSIDE RECORDS SUMMARY | 2019-02-02 14:02 | XMS REPORT ---
Author Author ЕКАТЕРИНА MTZ [facility] Address [address] [place] [address] Care Team Providers Care Field Worker Name Role Phone ЕКАТЕРИАН MTZ Unavailable PROBLEMS Type Condition ICD9-CM Code GSO25-JX Code Onset Dates Condition Status SNOMED Code Problem Coronary artery disease involving coronary bypass graft of akutan heart without angina pectoris I25.810 Active 112219062 Problem Chronic obstructive pulmonary disease with acute exacerbation J44.1 Active 224514680 Problem Mixed hyperlipidemia E78.2 Active 648603510 Problem Bipolar disorder, in partial remission, most recent episode depressed F31.75 Active 51198383 Problem Claudication I73.9 Active 650017699 Problem MESERET (generalized anxiety disorder) F41.1 Active 96608190 Problem Panic disorder F41.0 Active 038484405 Problem Coronary artery disease involving akut[place] coronary artery of akutan heart without angina pectoris I25.10 Active 2621893262659 Problem Mood disorder F39 Active 43391131 Problem Obesity (BMI 30-39.9) E66.9 Active 332738285 Problem Bipolar 1 disorder F31.9 Active 650795916 Problem PTSD (post-traumatic stress disorder) F43.10 Active 17368211 Problem Sleep apnea in adult G47.30 Active 81015759 Problem Essential hypertension I10 Active 34117991 Problem COPD mixed type J44.9 Active 79146620 ALLERGIES No Information ENCOUNTERS Encounter Location Date Diagnosis [facility] [address] [id number] [id number] Feb, [facility] [address] [facility] [id number] [place] [address] January, [facility] [address] [facility] [id number] [place] [address] January, [facility] [address] [facility] [id number] [place] [address] 88936- 7333 January, Bipolar 1 disorder, depressed F31.9 ; PTSD (post-traumatic stress disorder) F43.10 and Panic attacks F41.0 [facility] [id number] [place] [address]809- 5035 Dec, BMI 45.0-49.9, adult Z68.42 ; Bipolar disorder, in partial remission, most recent episode depressed F31.75 ; MESERET (generalized anxiety disorder) F41.1 and Panic disorder F41.0 [facility] [address] [place] [address] 48135- 7919 Dec, Bipolar 1 disorder, depressed F31.9 ; PTSD (post-traumatic stress disorder) F43.10 and Panic attacks F41.0 [facility] [address] [address] Nov, Bipolar disorder, in partial remission, most recent episode depressed F31.75 ; MESERET (generalized anxiety disorder) F41.1 and Panic disorder F41.0 [facility] [address] [address] Nov, [facility] [id number] [place] [address] 71277- 7473 Nov, [facility] [address] [place] [address] 20492- 1003 Oct, BMI 45.0-49.9, adult Z68.42 ; Bipolar disorder, in partial remission, most recent episode depressed F31.75 ; MESERET (generalized anxiety disorder) F41.1 and Panic disorder F41.0 [address] [address] [facility] [id number] [address] Oct, BMI 45.0-49.9, adult Z68.42 ; Coronary artery disease involving akut[place] coronary artery of akutan heart without angina pectoris I25.10 ; Hx of CABG Z95.1 ; Dyspnea on exertion R06.09 ; Essential hypertension I10 ; Mixed hyperlipidemia E78.2 ; Claudication I73.9 and Tobacco use Z72.0 [facility] [id number] [id number] 15 Oct, 2017 BMI 45.0-49.9, adult Z68.42 ; Bipolar 1 disorder, depressed F31.9 and Abscess L02.91 [facility] [address] [address] 14 Oct, 2017 Bipolar 1 disorder, depressed F31.9 ; PTSD (post-traumatic stress disorder) F43.10 and Panic attacks F41.0 [place] [address] [place] [address] 40041- 4743 Sep, BMI 40.0-44.9, adult Z68.41 ; Mood disorder F39 ; MESERET ( generalized anxiety disorder) F41.1 and Panic disorder F41.0 [place] [id number] [place] [address] 77050- 8004 Sep, BMI 40.0-44.9, adult Z68.41 [place] [id number] [place] [address] 87860- 3048 Sep, Bipolar 1 disorder, depressed F31.9 ; PTSD (post-traumatic stress disorder) F43.10 and Panic attacks F41.0 [place] [address] [place] [address] 07272- 0786 Aug, BMI 40.0-44.9, adult Z68.41 ; Mood disorder F39 ; MESERET ( generalized anxiety disorder) F41.1 and Panic disorder F41.0 [place] [address]100[place] [address] Aug, Bipolar 1 disorder, depressed F31.9 ; PTSD (post-traumatic stress disorder) F43.10 and Panic attacks F41.0 [facility] [id number], [place] [address] Aug, [facility] [id number], [place] [address] Aug, COPD mixed type J44.9 [place] [address] [id number] [address] 29[address] Aug, [facility] [address] [place] [address] 23097- 3736 Jul, PTSD (post-traumatic stress disorder) F43.10 ; Panic disorder F41.0 ; MESERET (generalized anxiety disorder) F41.1 ; Mood disorder F39 and BMI 40.0-44.9, adult Z68.41 [facility] [address]100[place] [address] Jul, Bipolar 1 disorder, depressed F31.9 ; PTSD (post-traumatic stress disorder) F43.10 and Panic attacks F41.0 [address] [place] [address] [id number] Jul, Bipolar 1 disorder, depressed F31.[address] [place] [address] [id number] Jul, Anxiety F41.9 ; COPD mixed type J44.9 ; Essential hypertension I10 ; Bipolar 1 disorder F31.9 ; High risk medication use Z79.899 ; BMI 40.0-44.9, adult Z68.41 and Coronary artery disease involving coronary bypass graft of akutan heart without angina pectoris I25.[address] [place] [address] [id number] Jul, Chronic obstructive pulmonary disease with acute exacerbation J44.1 and Acute nasopharyngitis J00 [address] [place] [address] [phone] Jul, Anxiety F41.9 ; Mixed hyperlipidemia E78.2 and Bipolar [address] [facility] [employer] [address] [id number] [place] [address] Jun Bipolar [address] [facility] [address] [id number] [place] [address] Jun [place] [id number] [address] Jun, Anxiety F41.9 ; Elevated blood sugar R73.9 ; Mixed hyperlipidemia E78.2 ; COPD mixed type J44.9 ; Essential hypertension I10 ; Bipolar 1 disorder F31.9 ; Coronary artery disease involving coronary bypass graft of akutan heart without angina pectoris I25.810 ; High risk medication use Z79.899 ; Controlled substance agreement signed Z79.899 ; Elevated fasting glucose R73.01 ; Encounter for immunization Z23 and BMI 40.0-44.9, adult Z68.41 [facility] [id number] [place] [address] [phone] Jun, Elevated blood sugar R73.9 [facility] [id number] [place] [address] [phone] Jun, [facility] [id number] [place] [address] [id number] Jun, Bipolar 1 disorder F31.9 ; Obesity (BMI 30-39.9) E66.9 ; Coronary artery disease involving coronary bypass graft of akutan heart without angina pectoris I25.810 and Essential hypertension I10 [facility] [id number] [place] [address] [id number] Jun, Coronary artery disease involving coronary bypass graft of akutan heart without angina pectoris I25.810 ; Bipolar 1 disorder F31.9 ; Anxiety F41.9 ; Essential hypertension I10 ; COPD mixed type J44.9 and Mixed hyperlipidemia E78.2 [facility] [id number] [place] [address] [id number] May, Severe single current episode of major depressive disorder, 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.2 ; Bipolar 1 disorder F31.9 ; Anxiety F41.9 ; PTSD (post -traumatic stress disorder) F43.10 ; Coronary artery disease involving coronary bypass graft of akutan heart without angina pectoris I25.810 ; Sleep apnea in adult G47.30 ; Essential hypertension I10 ; High risk medication use Z79.899 ; Obesity (BMI 30-39.9) E66.9 ; Encounter for therapeutic drug level monitoring Z51.81 and COPD mixed type J44.9 [facility] [id number] [place] [address] [phone] May, Severe single current episode of major depressive disorder, 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.2 ; Bipolar 1 disorder F31.9 ; Anxiety F41.9 ; PTSD (post -traumatic stress disorder) F43.10 ; Mixed hyperlipidemia E78.2 ; Coronary artery disease involving coronary bypass graft of akutan heart without angina pectoris I25.810 ; Sleep apnea in adult G47.30 ; Essential hypertension I10 ; High risk medication use Z79.899 ; Controlled substance agreement signed Z79.899 ; Obesity (BMI 30-39.9) E66.9 ; Tobacco abuse Z72.0 ; Tobacco abuse counseling Z71.6 and COPD mixed type J44.9 [facility] [id number] [place] [address] [id number] May, [facility] [address] [id number]- 2087 Dec, [facility] [id number] [place] [address] 83237- 1795 Dec, [facility] [id number] [place] [address] 28978- 0815 May, [facility] [id number] [place] [address] 17540- 3432 May, [facility] [id number] [place] [address] [id number] Dec, [facility] [id number] [place] [address] 32915- 7561 Dec, [facility] [id number] [place] [address] [id number] Dec, [facility] [id number] [place] [address] [id number]- 6713 Dec, [facility] [id number] [place] [address] 838155- 5191 Dec, [facility] [id number] [place] [address] [id number]- 3619 Dec, [facility] [id number] [place] [address] [phone]- 6087 Nov, [facility] [address] [id number] [id number] 17 Nov, 2013 [facility] [address] [id number] [place] [phone] Nov, [facility] [place] [address] [id number] [place] [phone] Nov, [facility] [place] [facility] [address] [facility] [id number] [place] [address] 2546 Nov, [facility] [place] [facility] [address] [facility] [id number] [place] [address] 2546 Nov, [facility] [place] [facility] [address] [facility] [id number] [place] [address]- 6016 Nov, [facility] [place] [facility] [address] [facility] [id number] [place] [address]- 3996 Nov, [facility] [place] [facility] [address] [id number] [address]- 0177 Nov, [facility] [place] [facility] [address] [facility] [id number] [place] [address]- 7556 Nov, [facility] [address] [facility] [id number] [place] [id number] Nov, [facility] [address] [facility] [id number][place] [id number] Oct, [facility] [place] [facility] [address] [id number] [address]- 2546 Oct, [facility] [address] [facility] [id number], [place] [address] Oct, [facility] [place] [facility] [address] [facility] [id number] [place] [address]- 5746 Oct, [facility] [place] [facility] [address] [facility] [id number] [place] [address]- 2546 Oct, [facility] [address] [facility] [id number][place] [id number] Sep, [facility] [place] [facility] [address] [id number] [address]- 1163 Sep, [facility] [address] [id number] [place] [address] Sep, [facility] [place] [facility] [address] [facility] [id number] [place] [address]- 2546 Sep, [facility] [place] [facility] [address] [facility] [id number] [place] [address]- 2546 Sep, [facility] [place] [facility] [address] [facility] [id number] [place] [address]- 2546 Sep, [facility] [place] [facility] [address] [facility] [id number] [place] [address]- 2546 Aug, [facility] [address] [id number] [place] [id number] Aug, [facility] [address] [place] [address]- 2546 Aug, [facility] [address] [id number][place] [id number] Jul, [facility] [address] [facility] [id number] [place] [address]- 2546 Jul, [facility] [address] [id number] [id number] Jul, [facility] [address] [facility] [id number] [place] [address]- 2546 Jul, [facility] [place] [facility] [address] [id number] [address]- 2546 May, [facility] [place] [facility] [address] [facility] [id number] [place] [address]- 2546 Apr, [facility] [place] [facility] [address] [facility] [id number] [place] [address]- 2546 Apr, [facility] [place] [facility] [address] [facility] [id number] [place] [address]- 2546 Mar, [facility] [address] [facility] [id number][place] [id number] Feb, [facility] [address] [id number] [place] [address] Feb, [facility] [address] [id number] [place] [address] Feb, [facility] [address] [facility] [id number] [place] [address]- 0109 Feb, [facility] [address] [facility] [id number] [place]- 7765 January, [facility] [address] [facility] [id number] [place] [address]- 8960 January, [facility] [address] [id number] [place] [address] Dec, [facility] [address] [id number] [place] Dec, [facility] [address] [id number] [place] [address] Dec, [facility] [address] [id number] [place] [address] Dec, [facility] [address] [id number] [place] [address] Dec, [facility] [address] [id number] [place] [address] Dec, [facility] [address] [address]- 4933 Dec, [facility] [address] [facility] [id number] [place] [address]- 8095 Dec, [facility] [address] [id number], [place] [address] Nov, [facility] [address] [id number] [place] [id number] Nov, [facility] [address] [facility] [id number][place] [id number] Nov, [facility] [address] [place] [address]- 77[address] Oct, [facility] [address] [id number] [address]- 2546 Oct, [facility] [address] [id number] [place] [address]- 2546 Sep, [facility] [place] [facility] [address] [facility] [id number] [place] [address]- 5396 Aug, [facility] [place] [facility] [address] [facility] [id number] [place] [address]- 2546 Aug, [facility] [place] [facility] [address] [facility] [id number] [place] [address]- 2546 Aug, [facility] [place] [facility] [address] [facility] [id number] [place] [address]- 8556 Aug, [facility] [address] [facility] [id number], [place] 148954295 Aug, [facility] [place] [facility] [address] [address]- 8816 Aug, [facility] [place] [facility] [address] [facility] [id number] [place] [address]- 9866 Jul, [facility] [place] [facility] [address] [facility] [id number] [place] [address]- 2056 Jul, [facility] [place] [facility] [address] [facility] [id number] [place] [address]- 2546 Jul, [facility] [address] [facility] [id number] [place] [address]- 2546 Jul, [facility] [address] [facility] [id number], [place] 12[address]759 Jun, [facility] [address] [facility] [id number], [place] 9[address]695516 Jun, [facility] [place] [facility] [address] [facility] [id number] [place] [address]- 2546 Jun, [facility] [address] [facility] [id number], [place] 09[address]24 Apr, [facility] [place] [facility] [address] [facility] [id number] [place] [address]- 2546 Apr, [facility] [place] [facility] [address] [id number] [place] [address]- 7936 Mar, [facility] [address] [id number] [place] [address]33 Feb, [facility] [address] [id number] [place] [address]676299[address] Feb, [facility] [place] [facility] [address] [facility] [id number] [place] [address]- 3416 Feb, [facility] [address] [id number] [place] [address] Feb, [facility] [place] [facility] [address] [facility] [id number] [place] [address]- 7816 Feb, [facility] [facility] [address] [facility] [id number] [place] [address]- 2846 Feb, [facility] [place] [facility] [address] [id number] [address]- 1316 Feb, [facility] [place] [facility] [address] [facility] [id number] [place] [address]- 8706 Feb, [facility] [address] [id number], [place] 8[place]84614 January, [facility] [address] [id number], [place] 622744014 Dec, [facility] [address] [facility] [id number] [place] [address]- 9346 Dec, [facility] [address] [facility] [id number] [place] [address]- 2546 Dec, [facility] [address] [id number], [place] [address] Dec, [facility] [address] [facility] [id number] [place] [address]- 2546 Dec, [facility] [address] [id number] [place] [address]39 Dec, [facility] [address] [id number] [place] 115358991 Nov, [facility] [address] [id number] [place] [id number] Nov, [facility] [address] [id number] [place] [id number] Nov, [facility] [address] [id number] [place] [id number] Nov, [facility] [address] [facility] [id number] [place] [address]- 2546 Oct, [facility] [address] [id number] [place] [address] Oct, [facility] [address] [id number] [place] 336574924 Oct, [facility] [address] [id number] [place] 300[place]7575 Oct, [facility] [address] [id number] [place] 429193218 Oct, [facility] [address] [id number] [place] Sep, [facility] [address] [id number] [place] [address] Sep, [facility] [place] [facility] [address]- 2256 Sep, [facility] [place] [facility] [address]100[place] [address]- 5376 Sep, [facility] [place] [facility] [address]100[place] [address]- 5918 Sep, [facility] [place] [facility] [address] [facility] [id number] [place] [address]- 1732 Sep, [facility] [place] [facility] [address] [address]- 3446 Aug, [facility] [place] [facility] [address] [address]- 5985 Aug, [facility] [place] [facility] [address] [id number] [address]- 0265 Aug, [facility] [place] [facility] [address] [id number] [place] [address]- 5205 Aug, [facility] [place] [facility] [address] [id number] [place] [address]- 0699 Aug, [facility] [place] [facility] [address] [id number] [place] [address] Aug, [facility] [place] [facility] [address] [id number] [place] [address] Aug, [facility] [place] [facility] [address] [id number] [place] [address] Aug, [facility] [place] [facility] [address] [id number] [place] [address] Jun, [facility] [place] [facility] [address] [id number] [place] [address] 27 Jun, 2011 [facility] [place] [facility] [address] [id number] [place] [address] Jun, [facility] [place] [facility] [address] [id number] [place] [address] 19 Jun, 2011 [facility] [place] [facility] [address] [id number] [place] [address] 14 Jun, 2011 [facility] [place] [facility] [address] [id number] [place] [address] 13 Jun, 2011 [facility] [place] [facility] [address] [id number] [place] [address] 12 Jun, 2011 [facility] [place] [facility] [address] [id number] [place] [address] 12 Jun, 2011 [facility] [place] [facility] [address] [id number] [place] [address] 12 Jun, 2011 [facility] [place] [facility] [address] [id number] [place] [address] 14 May, 2011 [facility] [place] [facility] [id number] [place] [address] Apr, [facility] [id number] [place] [address] 16 Feb, 2011 [facility] [id number] [place] [address] Dec, [facility] [id number] [address] Aug, [facility] [id number] [place] [address] Aug, [facility] [id number] [place] [address] Aug, [facility] [id number] [place] [address] Aug, [facility] [id number] [place] [address] Jul, [facility] [id number] [place] [address] Jun, [facility] [id number] [place] [address] Jun, IMMUNIZATIONS No Known Immunizations SOCIAL HISTORY Never Assessed REASON FOR VISIT PLAN OF CARE VITAL SIGNS MEDICATIONS Medication Instructions Dosage Frequency Start Date End Date Duration Status Seeley Carbonate 300 MG Orally 2 times a day 3 tabs in am and 2 tab in pm 12h Active RESULTS No Results PROCEDURES No Known [...] Coronary atherosclerosis of unspecified type of vessel, [place] or graft Medical History Coronary atherosclerosis of unspecified type of vessel, [place] or graft Surgical History section x4 Surgical History CABG x3 Surgical History Left arm-Plate and screws placed Hospitalization History Surgery(s)/Childbirth(s) only
--- OUTSIDE RECORDS SUMMARY | 2019-02-02 14:03 | XMS REPORT ---
Author Author MAL SHARMA Organization [facility] Address [address] [place] [address] Care Team Providers Care Information Technology Director Name Role Phone MAL SHARMA Unavailable PROBLEMS Type Condition ICD9-CM Code ILR71-VU Code Onset Dates Condition Status SNOMED Code Problem Coronary artery disease involving coronary bypass graft of [place] heart without angina pectoris I25.810 Active 246383281 Problem Chronic obstructive pulmonary disease with acute exacerbation J44.1 Active 772985950 Problem Mixed hyperlipidemia E78.2 Active 470041559 Problem Bipolar disorder, in partial remission, most recent episode depressed F31.75 Active 29180725 Problem Claudication I73.9 Active 770598304 Problem MESERET (generalized anxiety disorder) F41.1 Active 08661255 Problem Panic disorder F41.0 Active 704612746 Problem Coronary artery disease involving [place] coronary artery of [place] heart without angina pectoris I25.10 Active 4861876390995 Problem Mood disorder F39 Active 47934547 Problem Obesity (BMI 30-39.9) E66.9 Active 998655126 Problem Bipolar 1 disorder F31.9 Active 098131776 Problem PTSD (post-traumatic stress disorder) F43.10 Active 04309923 Problem Sleep apnea in adult G47.30 Active 63045910 Problem Essential hypertension I10 Active 35454346 Problem COPD mixed type J44.9 Active 88663759 ALLERGIES No Information ENCOUNTERS Encounter Location Date Diagnosis [facility] [address] [facility] [id number] [address] Feb, [facility] [address] [facility] [id number], [place] [address] Feb, [address] [id number] [place] [id number] Feb, [facility] [address] [facility] [id number], [place] [address] January, High risk medication use Z79.899 ; Bipolar disorder, in partial remission, most recent episode depressed F31.75 ; MESERET (generalized anxiety disorder) F41.1 ; Panic disorder F41.0 and BMI 45.0-49.9, adult Z68.42 [facility] [address] [place] [address]1721- 8296 January, Bipolar 1 disorder, depressed F31.9 ; PTSD (post-traumatic stress disorder) F43.10 and Panic attacks F41.0 [place] [address] [place] [id number] [place] [address] 12543- 2267 January, Bipolar 1 disorder, depressed F31.9 ; PTSD (post-traumatic stress disorder) F43.10 and Panic attacks F41.0 [place] [address] [id number] [place] [address] 44366- 7661 Dec, BMI 45.0-49.9, adult Z68.42 ; Bipolar disorder, in partial remission, most recent episode depressed F31.75 ; MESERET (generalized anxiety disorder) F41.1 and Panic disorder F41.0 [place] [id number] [place] [address] 05216- 0275 Dec, Bipolar 1 disorder, depressed F31.9 ; PTSD (post-traumatic stress disorder) F43.10 and Panic attacks F41.0 [place] [address] [place] [address] 05096- 0219 Nov, Bipolar disorder, in partial remission, most recent episode depressed F31.75 ; MESERET (generalized anxiety disorder) F41.1 and Panic disorder F41.0 [facility] [address] [place] [address] 07550- 0565 Nov, [facility] [id number] [place] [address] 29633- 6273 Nov, [facility] [id number] [place] [address] 82150- 5036 Oct, BMI 45.0-49.9, adult Z68.42 ; Bipolar disorder, in partial remission, most recent episode depressed F31.75 ; MESERET (generalized anxiety disorder) F41.1 and Panic disorder F41.0 [address] [id number] [place] [id number] 23 Oct, 2017 BMI 45.0-49.9, adult Z68.42 ; Coronary artery disease involving [place] coronary artery of [place] heart without angina pectoris I25.10 ; Hx of CABG Z95.1 ; Dyspnea on exertion R06.09 ; Essential hypertension I10 ; Mixed hyperlipidemia E78.2 ; Claudication I73.9 and Tobacco use Z72.0 [facility] [address] [facility] [id number] [id number] 15 Oct, 2017 BMI 45.0-49.9, adult Z68.42 ; Bipolar 1 disorder, depressed F31.9 and Abscess L02.91 [facility] [address] [place] [address] 79567- 7215 14 Oct, 2017 Bipolar 1 disorder, depressed F31.9 ; PTSD (post-traumatic stress disorder) F43.10 and Panic attacks F41.0 [place] [address] [place] [address] 57583- 5188 Sep, BMI 40.0-44.9, adult Z68.41 ; Mood disorder F39 ; MESERET ( generalized anxiety disorder) F41.1 and Panic disorder F41.0 [facility] [address] [place] [address] 31727- 3802 Sep, BMI 40.0-44.9, adult Z68.41 [facility] [address] [place] [address] 65560- 8452 Sep, Bipolar 1 disorder, depressed F31.9 ; PTSD (post-traumatic stress disorder) F43.10 and Panic attacks F41.0 [facility] [address] [place] [address] 80516- 3308 Aug, BMI 40.0-44.9, adult Z68.41 ; Mood disorder F39 ; MESERET ( generalized anxiety disorder) F41.1 and Panic disorder F41.0 [facility] [address]65100[place], [place] [address] 5926 Aug, Bipolar 1 disorder, depressed F31.9 ; PTSD (post-traumatic stress disorder) F43.10 and Panic attacks F41.0 [facility] [id number] [place] [id number] Aug, [facility] [id number] [place] [address] [id number] Aug, COPD mixed type J44.9 [facility] [id number] [place] [address] 21961- 5627 Aug, [facility] [id number] [place] [address] 85895- 0851 30 Jul, 2017 PTSD (post-traumatic stress disorder) F43.10 ; Panic disorder F41.0 ; MESERET (generalized anxiety disorder) F41.1 ; Mood disorder F39 and BMI 40.0-44.9, adult Z68.41 [facility] [address]65100[place], [place] [address] Jul, Bipolar 1 disorder, depressed F31.9 ; PTSD (post-traumatic stress disorder) F43.10 and Panic attacks F41.0 [address] [place] [address] [id number] Jul, Bipolar 1 disorder, depressed F31.9 [address] [place] [address] [id number] Jul, Anxiety F41.9 ; COPD mixed type J44.9 ; Essential hypertension I10 ; Bipolar 1 disorder F31.9 ; High risk medication use Z79.899 ; BMI 40.0-44.9, adult Z68.41 and Coronary artery disease involving coronary bypass graft of [place] heart without angina pectoris I25.810 [facility] [address]65100[place] [id number] 06 Jul, 2017 Chronic obstructive pulmonary disease with acute exacerbation J44.1 and Acute nasopharyngitis J00 [facility] [address] [id number] [address] Jul, Anxiety F41.9 ; Mixed hyperlipidemia E78.2 and Bipolar 1 disorder F31.9 [facility] [address] [id number] [place] [address] Jun Bipolar 1 disorder F31.9 [facility] [address] [id number] [place] [address] Jun [place] [address] [id number] [place] [address] [id number] Jun, Anxiety F41.9 ; Elevated blood sugar R73.9 ; Mixed hyperlipidemia E78.2 ; COPD mixed type J44.9 ; Essential hypertension I10 ; Bipolar 1 disorder F31.9 ; Coronary artery disease involving coronary bypass graft of [place] heart without angina pectoris I25.810 ; High risk medication use Z79.899 ; Controlled substance agreement signed Z79.899 ; Elevated fasting glucose R73.01 ; Encounter for immunization Z23 and BMI 40.0-44.9, adult Z68.41 [facility] [address] [place] [address] [id number] Jun, Elevated blood sugar R73.9 [address] [place] [address] [id number] Jun, [place] [id number] [place] [address] [id number] Jun, Bipolar 1 disorder F31.9 ; Obesity (BMI 30-39.9) E66.9 ; Coronary artery disease involving coronary bypass graft of [place] heart without angina pectoris I25.810 and Essential hypertension I10 [facility] [address]100[place] [address] Jun, Coronary artery disease involving coronary bypass graft of [place] heart without angina pectoris I25.810 ; Bipolar 1 disorder F31.9 ; Anxiety F41.9 ; Essential hypertension I10 ; COPD mixed type J44.9 and Mixed hyperlipidemia E78.2 [facility] [address] [id number] [place] [id number] May, Severe single current episode of major depressive disorder, 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.2 ; Bipolar 1 disorder F31.9 ; Anxiety F41.9 ; PTSD (post -traumatic stress disorder) F43.10 ; Coronary artery disease involving coronary bypass graft of [place] heart without angina pectoris I25.810 ; Sleep apnea in adult G47.30 ; Essential hypertension I10 ; High risk medication use Z79.899 ; Obesity (BMI 30-39.9) E66.9 ; Encounter for therapeutic drug level monitoring Z51.81 and COPD mixed type J44.9 [facility] [id number] [place] [address] [id number] May, Severe single current episode of major depressive disorder, 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.2 ; Bipolar 1 disorder F31.9 ; Anxiety F41.9 ; PTSD (post -traumatic stress disorder) F43.10 ; Mixed hyperlipidemia E78.2 ; Coronary artery disease involving coronary bypass graft of [place] heart without angina pectoris I25.810 ; Sleep apnea in adult G47.30 ; Essential hypertension I10 ; High risk medication use Z79.899 ; Controlled substance agreement signed Z79.899 ; Obesity (BMI 30-39.9) E66.9 ; Tobacco abuse Z72.0 ; Tobacco abuse counseling Z71.6 and COPD mixed type J44.9 [place] [id number] [place] [address] [id number] May, [facility] [address] [id number]- 2944 Dec, [facility] [id number] [place] [address] 03794- 5400 Dec, [facility] [address] [id number]- 7061 May, [facility] [id number] [place] [address] 43781- 5426 May, [place] [id number] [place] [address] [id number] Dec, [facility] [id number] [place] [address] 86076- 3587 Dec, [facility] [address] [id number] Dec, [facility] [place] [facility] [address] [id number] [place] [address]- 8586 Dec, [facility] [place] [facility] [address] [facility] [id number] [place] [address]- 2546 Dec, [facility] [place] [facility] [address] [facility] [id number] [place] [address]- 2546 Dec, [facility] [place] [facility] [address] [facility] [id number] [place] [address]- 2546 Nov, [facility] [address] [id number] [place] [id number] Nov, [facility] [address] [id number] [place] [id number] Nov, [facility] [address] [id number] [place] [id number] Nov, [facility] [place] [facility] [address] [facility] [id number] [place] [address]- 4386 Nov, [facility] [place] [facility] [address] [facility] [id number] [place] [address]- 2680 Nov, [facility] [place] [facility] [address] [facility] [id number] [place] [address]- 6436 Nov, [facility] [place] [facility] [address] [facility] [id number], [place] [address]- 6706 15 Nov, 2013 [facility] [place] [facility] [address] [facility] [id number], [place] [address]- 9886 14 Nov, 2013 [facility] [place] [facility] [address] [id number] [place] [address]- 5610 Nov, [facility] [address] [id number] [place] [address] Nov, [facility] [address] [id number] [place] [address] Oct, [facility] [place] [facility] [address] [facility] [id number] [place] [address] 2546 Oct, [facility] [address] [facility] [id number] [place] [id number] Oct, [facility] [place] [facility] [address] [facility] [id number], [place] [address]- 0346 Oct, [facility] [place] [facility] [address] [facility] [id number], [place] [address]- 4176 Oct, [facility] [address] [id number] [place] [id number] Sep, [facility] [place] [facility] [address] [facility] [id number] 4718 Sep, [facility] [address] [facility] [id number] [place] [address] Sep, [facility] [place] [facility] [address]00565100[place], [place] [address]- 7619 Sep, [facility] [place] [facility] [address]00565100[place], [place] [address]- 6712 Sep, [facility] [place] [facility] [address]00565100[place], [place] [address]- 2807 Sep, [facility] [place] [facility] [address]00565100[place], [place] [address]- 8252 Aug, [facility] [id number] [place] [id number] Aug, [facility] [place] [facility] [address] [id number], [place] [address]- 9126 Aug, [facility] [id number] [place] [id number] Jul, [facility] [place] [facility] [address] [facility] [id number], [place] [address]- 7185 Jul, [facility] [address] [facility] [id number] [place] [address] Jul, [facility] [place] [facility] [address] [id number], [place] [address]- 0009 Jul, [facility] [place] [facility] [address]00565100[place], [place] [address]- 2331 May, [facility] [address] [facility] [id number], [place] [address]- 3252 Apr, [facility] [place] [facility] [address] [id number], [place] [address]- 5252 Apr, [facility] [address] [id number], [place] [address]- 0794 Mar, [facility] [address] [id number] [place] [address] Feb, [facility] [address] [id number] [place] [id number] Feb, [facility] [address] [facility] [id number] [place] [id number] Feb, [facility] [address]00565100[place], [place] [address]- 9799 Feb, [facility] [address]00565100[place], [place] [address]- 8300 January, [facility] [address] [id number], [place] [address]- 9815 January, [facility] [address] [id number] [place] [address] Dec, [facility] [address] [id number] [place]LAND[place] 96[address] Dec, [facility] [address] [id number] [place] [address] Dec, [facility] [address] [id number] [place] 530[address] Dec, [facility] [address] [id number] [place] [address] Dec, [facility] [address] [facility] [id number] [place] 69[address] Dec, [facility] [place] [facility] [address] [id number], [place] [address]- 6601 Dec, [facility] [place] [facility] [address]00565100[place], [place] [address]- 2546 Dec, [facility] [address] [id number] [place] [address] Nov, [facility] [address] [id number] [place] [address] Nov, [facility] [address] [id number] [place] [address] Nov, [facility] [place] [facility] [address] [facility] [id number] [place] [address]- 2546 Oct, [facility] [place] [facility] [address] [facility] [id number] [place] [address]- 2546 Oct, [facility] [place] [facility] [address] [facility] [id number] [place] [address]- 2546 Sep, [facility] [place] [facility] [id number] [place] [address]- 4436 Aug, [facility] [place] [facility] [address] [facility] [id number], [place] [address]- 4496 Aug, [facility] [place] [facility] [address] [facility] [id number], [place] [address]- 7026 Aug, [facility] [place] [facility] [address] [id number], [place] [address]- 8036 Aug, [facility] [address] [facility] [id number] [place] [address] Aug, [facility] [place] [facility] [address] [facility] [id number], [place] [address]- 5596 Aug, [facility] [place] [facility] [address] [facility] [id number], [place] [address]- 2546 Jul, [facility] [place] [facility] [address] [facility] [id number], [place] [address]- 9606 Jul, [facility] [place] [facility] [address] [facility] [id number], [place] [address]- 2546 Jul, [facility] [place] [facility] [address] [facility] [id number], [place] [address]- 2546 Jul, [facility] [address] [id number] [place] 3235[address] Jun, [facility] [address] [facility] [id number] [place] [id number] Jun, [facility] [place] [facility] [address] [facility] [id number], [place] [address]- 2546 Jun, [facility] [address] [facility] [id number] [place] [id number] Apr, [facility] [place] [facility] [address] [facility] [id number], [place] [address]- 2546 Apr, [facility] [place] [facility] [address] [facility] [id number], [place] [address]- 2546 Mar, [facility] [address] [facility] [id number] [place] 918450024 Feb, [facility] [address] [facility] [id number] [place] 708777593 Feb, [facility] [place] [facility] [address] [facility] [id number], [place] [address] 2546 Feb, [facility] [address] [facility] [id number] [place] 284774162 Feb, [facility] [place] [facility] [address]00565100[place], [place] [address]- 2766 Feb, [facility] [place] [facility] [address]00565100[place], [place] [address]- 9976 Feb, [facility] [place] [facility] [address]00565100[place], [place] [address]- 2546 Feb, [facility] [place] [facility] [address] [facility] [id number], [place] [address]- 7286 Feb, [facility] [address] [facility] [id number] [place] [address] January, [facility] [address] [facility] [id number] [place] 67516[address]91 Dec, [facility] [place] [facility] [address]00565100[place], [place] [address]- 9596 Dec, [facility] [address] [facility] [id number][place] [address]- 0286 Dec, [facility] [address] [id number] [place] [id number] Dec, [facility] [address] [facility] [id number], [place] [address]- 8924 Dec, [facility] [address] [id number] [place] 9977[address] Dec, [facility] [address] [id number] [place] 2158[address]278 Nov, [facility] [address] [id number] [place] 335849417 Nov, [facility] [address] [id number] [place] [address]582233[address] Nov, [facility] [address] [id number] [place] [address] Nov, [facility] [address]00565100[place], [place] [address]- 8956 Oct, [facility] [address] [id number] [place] [id number] Oct, [facility] [address] [id number] [place] 374588877 Oct, [facility] [address] [id number] [place] 978387497 Oct, [facility] [address] [id number] [place] 375297084 Oct, [facility] [address] [id number] [place] 996551487 Sep, [facility] [address] [id number] [place] [address] Sep, [facility] [address] [facility] [id number], [place] [address]- [address]449 Sep, [facility] [address]00565100[place] 93[place]- 5939 Sep, [facility] [address] [id number] [place] [address]- 3103 Sep, [facility] [place] [facility] [address] [id number] [place] [address]- 5445 Sep, [facility] [place] [facility] [address] [id number] [place] [address]- 7238 Aug, [facility] [place] [facility] [address] [id number] [place] [address]- 4179 Aug, [facility] [address] [id number] [place] [address]- 5718 Aug, [facility] [place] [facility] [address] [id number] [place] [address]- 9364 Aug, [facility] [address] [id number] [place] [address]- 9961 Aug, [facility] [place] [facility] [address] [id number] [place] [address]- 2962 Aug, [facility] [place] [facility] [address] [id number] [place] [address]- 5696 Aug, [facility] [place] [facility] [address] [id number] [place] [address]- 4269 Aug, [facility] [place] [facility] [address] [id number] [place] [address]- 1524 Jun, [facility] [place] [facility] [address] [id number], [place] [address]- 4642 27 Jun, 2011 [facility] [place] [facility] [address] [id number] [place] [address]- 4603 Jun, [facility] [place] [facility] [address] [id number] [place] [address]- 6935 19 Jun, 2011 [facility] [place] [facility] [address] [id number] [address] 14 Jun, 2011 [facility] [place] [facility] [address] [id number], [place] [address] 13 Jun, 2011 [facility] [id number] [address] Jun, [facility] [id number] [address] Jun, [facility] [id number] [address] Jun, [facility] [id number] [place] [address] 14 May, 2011 [facility] [id number] [place] [address] Apr, [facility] [id number] [place] [address] Feb, [facility] [id number] [place] [address] Dec, [facility] [id number] [address] Aug, [facility] [id number] [address] Aug, [facility] [id number], [place] [address] Aug, [facility] [id number] [address] Aug, [facility] [id number] [address] Jul, [facility] [id number] [address] Jun, [facility] [id number], [place] [address] Jun, IMMUNIZATIONS No Known Immunizations SOCIAL HISTORY Never Assessed REASON FOR VISIT f/u PLAN OF CARE Activity Details Follow Up Next available Reason: VITAL SIGNS MEDICATIONS Unknown Medications RESULTS No Results PROCEDURES Procedure Date Ordered Result Body Site Psychotherapy, patient &/family, 45 minutes, established patient Sep 03, 2017 INSTRUCTIONS MEDICATIONS ADMINISTERED No Known Medications [...] Coronary atherosclerosis of unspecified type of vessel, [place] or graft Medical History Coronary atherosclerosis of unspecified type of vessel, [place] or graft Surgical History section x4 Surgical History CABG x3 Surgical History Left arm-Plate and screws placed Hospitalization History Surgery(s)/Childbirth(s) only
--- OUTSIDE RECORDS SUMMARY | 2019-02-02 14:03 | XMS REPORT ---
Author Author DEANA KEVON Organization [facility] Address [address] [place] [address] Care Team Providers Care Duco Polisher Name Role Phone ANNIMARILYN KEVON Unavailable PROBLEMS Type Condition ICD9-CM Code OHT55-JO Code Onset Dates Condition Status SNOMED Code Problem Coronary artery disease involving coronary bypass graft of comanche heart without angina pectoris I25.810 Active 955452472 Problem Chronic obstructive pulmonary disease with acute exacerbation J44.1 Active 654433263 Problem Mixed hyperlipidemia E78.2 Active 560068314 Problem Bipolar disorder, in partial remission, most recent episode depressed F31.75 Active 27711431 Problem Claudication I73.9 Active 126851481 Problem MESERET (generalized anxiety disorder) F41.1 Active 03771420 Problem Panic disorder F41.0 Active 627012450 Problem Coronary artery disease involving comanche coronary artery of comanche heart without angina pectoris I25.10 Active 5199298486147 Problem Mood disorder F39 Active 19874355 Problem Obesity (BMI 30-39.9) E66.9 Active 628296761 Problem Bipolar 1 disorder F31.9 Active 011234362 Problem PTSD (post-traumatic stress disorder) F43.10 Active 93255373 Problem Sleep apnea in adult G47.30 Active 24720089 Problem Essential hypertension I10 Active 15903505 Problem COPD mixed type J44.9 Active 40408483 ALLERGIES Substance Reaction Event Type Date Status Penicillin V Potassium Swelling/hives Drug Allergy Aug, Active Abilify dizziness Drug Allergy Aug, Active ENCOUNTERS Encounter Location Date Diagnosis [facility] [address] [facility] [id number] [address] Feb, [facility] [address] [facility] [id number], [place] [address] Feb, [place] [address] [id number] [id number] Feb, [place] [address], [place] [address] January, High risk medication use Z79.899 ; Bipolar disorder, in partial remission, most recent episode depressed F31.75 ; MESERET (generalized anxiety disorder) F41.1 ; Panic disorder F41.0 and BMI 45.0-49.9, adult Z68.42 [place] [address] [place] [id number] [place] [address] January, Bipolar 1 disorder, depressed F31.9 ; PTSD (post-traumatic stress disorder) F43.10 and Panic attacks F41.0 [place] [address] [place] [id number] [place] [address] 31237- 29[address] January, Bipolar 1 disorder, depressed F31.9 ; PTSD (post-traumatic stress disorder) F43.10 and Panic attacks F41.0 [place] [address] [place] [address] 15969- 2811 Dec, BMI 45.0-49.9, adult Z68.42 ; Bipolar disorder, in partial remission, most recent episode depressed F31.75 ; MESERET (generalized anxiety disorder) F41.1 and Panic disorder F41.0 [place] [address], [place] [address] Dec, Bipolar 1 disorder, depressed F31.9 ; PTSD (post-traumatic stress disorder) F43.10 and Panic attacks F41.0 [place] [address] [place] [address] 58474- 1233 Nov, Bipolar disorder, in partial remission, most recent episode depressed F31.75 ; MESERET (generalized anxiety disorder) F41.1 and Panic disorder F41.0 [place] [address] [place] [address] 25943- 0144 Nov, [place] [address], [place] [address] Nov, [place] [address] [place] [address] Oct, BMI 45.0-49.9, adult Z68.42 ; Bipolar disorder, in partial remission, most recent episode depressed F31.75 ; MESERET (generalized anxiety disorder) F41.1 and Panic disorder F41.[address] [id number] [id number] 23 Oct, 2017 BMI 45.0-49.9, adult Z68.42 ; Coronary artery disease involving comanche coronary artery of comanche heart without angina pectoris I25.10 ; Hx of CABG Z95.1 ; Dyspnea on exertion R06.09 ; Essential hypertension I10 ; Mixed hyperlipidemia E78.2 ; Claudication I73.9 and Tobacco use Z72.0 [facility] [address] [id number] 15 Oct, 2017 BMI 45.0-49.9, adult Z68.42 ; Bipolar 1 disorder, depressed F31.9 and Abscess L02.[address] [place] [address] 85074- 6773 14 Oct, 2017 Bipolar 1 disorder, depressed F31.9 ; PTSD (post-traumatic stress disorder) F43.10 and Panic attacks F41.0 [address] [place] [address] 34662- 5018 Sep, BMI 40.0-44.9, adult Z68.41 ; Mood disorder F39 ; MESERET ( generalized anxiety disorder) F41.1 and Panic disorder F41.0 [place] [address] [place] [address] 71168- 8148 Sep, BMI 40.0-44.9, adult Z68.41 [place] [id number] [place] [address] 33036- 6488 Sep, Bipolar 1 disorder, depressed F31.9 ; PTSD (post-traumatic stress disorder) F43.10 and Panic attacks F41.0 [place] [address] [place] [id number] [place] [address] 80775- 2901 Aug, BMI 40.0-44.9, adult Z68.41 ; Mood disorder F39 ; MESERET ( generalized anxiety disorder) F41.1 and Panic disorder F41.0 [place] [address] [place] [id number] [place] [address] 06883- 9107 Aug, Bipolar 1 disorder, depressed F31.9 ; PTSD (post-traumatic stress disorder) F43.10 and Panic attacks F41.0 [facility] [address] [id number] [place] [id number] Aug, [facility] [id number] [place] [address] [id number] Aug, COPD mixed type J44.9 [place] [address] [address] Aug, [place] [address] [address]- [address] Jul, PTSD (post-traumatic stress disorder) F43.10 ; Panic disorder F41.0 ; MESERET (generalized anxiety disorder) F41.1 ; Mood disorder F39 and BMI 40.0-44.9, adult Z68.41 [place] [address] [place] [id number] [place] [address] 34747- 6096 Jul, Bipolar 1 disorder, depressed F31.9 ; PTSD (post-traumatic stress disorder) F43.10 and Panic attacks F41.0 [place] [id number] [place] [address] [id number] Jul, Bipolar 1 disorder, depressed F31.9 [place] [id number] [place] [address] [id number] Jul, Anxiety F41.9 ; COPD mixed type J44.9 ; Essential hypertension I10 ; Bipolar 1 disorder F31.9 ; High risk medication use Z79.899 ; BMI 40.0-44.9, adult Z68.41 and Coronary artery disease involving coronary bypass graft of comanche heart without angina pectoris I25.[address] [place] [address] [id number] Jul, Chronic obstructive pulmonary disease with acute exacerbation J44.1 and Acute nasopharyngitis J[address] [place] [address] [id number] [address] Jul, Anxiety F41.9 ; Mixed hyperlipidemia E78.2 and Bipolar 1 disorder F31.9 [facility] [address] [id number] [place] [address] Jun Bipolar 1 disorder F31.9 [facility] [address] [id number] [place] [address] Jun [place] [address] [id number] [id number] Jun, Anxiety F41.9 ; Elevated blood sugar R73.9 ; Mixed hyperlipidemia E78.2 ; COPD mixed type J44.9 ; Essential hypertension I10 ; Bipolar 1 disorder F31.9 ; Coronary artery disease involving coronary bypass graft of comanche heart without angina pectoris I25.810 ; High risk medication use Z79.899 ; Controlled substance agreement signed Z79.899 ; Elevated fasting glucose R73.01 ; Encounter for immunization Z23 and BMI 40.0-44.9, adult Z68.[address] [place] [address] [id number] Jun, Elevated blood sugar R73.9 [address] [place] [address] [id number] Jun, [address] [id number] Jun, Bipolar 1 disorder F31.9 ; Obesity (BMI 30-39.9) E66.9 ; Coronary artery disease involving coronary bypass graft of comanche heart without angina pectoris I25.810 and Essential hypertension I10 [address] [place] [address] [id number] Jun, Coronary artery disease involving coronary bypass graft of comanche heart without angina pectoris I25.810 ; Bipolar 1 disorder F31.9 ; Anxiety F41.9 ; Essential hypertension I10 ; COPD mixed type J44.9 and Mixed hyperlipidemia E78.2 [place] [id number] [place] [address] [id number] May, Severe single current episode of major depressive disorder, 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.2 ; Bipolar 1 disorder F31.9 ; Anxiety F41.9 ; PTSD (post -traumatic stress disorder) F43.10 ; Coronary artery disease involving coronary bypass graft of comanche heart without angina pectoris I25.810 ; Sleep apnea in adult G47.30 ; Essential hypertension I10 ; High risk medication use Z79.899 ; Obesity (BMI 30-39.9) E66.9 ; Encounter for therapeutic drug level monitoring Z51.81 and COPD mixed type J44.9 [address] [place] [address] [id number] May, Severe single current episode of major depressive disorder, 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.2 ; Bipolar 1 disorder F31.9 ; Anxiety F41.9 ; PTSD (post -traumatic stress disorder) F43.10 ; Mixed hyperlipidemia E78.2 ; Coronary artery disease involving coronary bypass graft of comanche heart without angina pectoris I25.810 ; Sleep apnea in adult G47.30 ; Essential hypertension I10 ; High risk medication use Z79.899 ; Controlled substance agreement signed Z79.899 ; Obesity (BMI 30-39.9) E66.9 ; Tobacco abuse Z72.0 ; Tobacco abuse counseling Z71.6 and COPD mixed type J44.9 [address] [place] [id number] May, [facility] [address], [place] [address] Dec, [facility] [address] [place] [id number] [place] [address] 69027- [address]999 Dec, [facility] [address] [place] [id number] [place] [address] 63237- [address]183 May, [facility] [address] [place] [id number] [place] [address] 16782- 9748 May, [address] [id number] Dec, [facility] [address] [address] Dec, [facility] [address] [id number] [place] [id number] Dec, [facility] [place] [facility] [address] [id number] [place] [address]- 2546 Dec, [facility] [place] [facility] [address] [facility] [id number] [place] [address]- 2546 Dec, [facility] [place] [facility] [address] [facility] [id number] [place] [address]- 2546 Dec, [facility] [place] [facility] [address] [id number] [place] [address]- 2546 Nov, [facility] [address] [id number] [place] [id number] Nov, [facility] [address] [id number] [place] [id number] Nov, [facility] [address] [facility] [id number] [place] [id number] Nov, [facility] [place] [facility] [address] [facility] [id number] [place] [address] 2546 Nov, [facility] [place] [facility] [address] [facility] [id number] [place] [address]- 6896 Nov, [facility] [place] [facility] [address] [facility] [id number], [place] [address]- 3066 Nov, [facility] [place] [facility] [address] [facility] [id number], [place] [address] 2546 15 Nov, 2013 [facility] [place] [facility] [address] [facility] [id number] [place] [address]- 2546 14 Nov, 2013 [facility] [place] [facility] [address] [facility] [id number] [place] [address] 2546 Nov, [facility] [address] [id number] [place] [id number] Nov, [facility] [address] [facility] [id number] [place] [address] Oct, [facility] [place] [facility] [address] [facility] [id number], [place] [address] Oct, [facility] [address] [facility] [id number] [place] [id number] Oct, [facility] [place] [facility] [address] [facility] [id number], [place] [address]- 3906 Oct, [facility] [address] [facility] [id number], [place] [address]- 8106 Oct, [facility] [address] [facility] [id number] [place] [id number] Sep, [facility] [address] [facility] [id number], [place] [address]- 2886 Sep, [facility] [address] [facility] [id number] [place] [address] Sep, [facility] [address], [place] [address]- 4676 Sep, [facility] [place] [facility] [address], [place] [address]- 7[address] Sep, [facility] [place] [facility] [address] 160[address] Sep, [facility] [place] [facility] [address] [address] [address] Aug, [facility] [address] [facility] [id number] [place] [id number] Aug, [facility] [place] [facility] [address] [facility] [id number], [place] [address]- 4366 Aug, [facility] [address] [facility] [id number] [place] [id number] Jul, [facility] [place] [facility] [address] [facility] [id number], [place] [address]- 1826 Jul, [facility] [address] [facility] [id number] [place] [id number] Jul, [facility] [place] [facility] [address] [id number] [address] 0786 Jul, [facility] [address] [facility] [id number], [place] [address]- 0160 May, [facility] [place] [facility] [address] [facility] [id number], [place] [address]- 0596 Apr, [facility] [address] [facility] [id number], [place] [address] 2546 Apr, [facility] [place] [facility] [address] [facility] [id number], [place] [address]- 5132 Mar, [facility] [address] [id number] [place] [id number] Feb, [facility] [address] [id number] [place] [id number] Feb, [facility] [address] [id number] [place] [id number] Feb, [facility] [address] [facility] [id number], [place] [address]- 2136 Feb, [facility] [address] [facility] [id number], [place] [address]- 8183 January, [facility] [address] [facility] [id number], [place] [address]- 5826 January, [facility] [address] [id number] [place] [id number] Dec, [facility] [address] [id number] [place] [address] Dec, [facility] [address] [id number] [place] [id number] Dec, [facility] [address] [id number] [place] [id number] Dec, [facility] [address] [id number] [place] [address] Dec, [facility] [address] [id number] [place] [address] Dec, [facility] [place] [facility] [address] [facility] [id number], [place] [address]- 7846 Dec, [facility] [address] [id number] [place] [address]- 2546 Dec, [facility] [address] [id number] [place] [id number] Nov, [facility] [address] [id number] [place] [id number] Nov, [facility] [address] [id number] [place] [id number] Nov, [facility] [address] [id number] [place] [address]- 2546 Oct, [facility] [place] [facility] [address] [facility] [id number] [place] [address]- 2546 Oct, [facility] [address] [facility] [id number] [place] [address]- 2546 Sep, [facility] [place] [facility] [address] [facility] [id number] [place] [address]- 0016 Aug, [facility] [place] [facility] [address] [facility] [id number] [place] [address]- 4053 Aug, [facility] [place] [facility] [address] [facility] [id number] [place] [address]- 2186 Aug, [facility] [place] [facility] [address] [facility] [id number], [place] [address]- 6296 Aug, [facility] [address] [facility] [id number] [place] [id number] Aug, [facility] [place] [facility] [address] [id number], [place] [address]- 2546 Aug, [facility] [place] [facility] [address] [facility] [id number] [place] [address]- 2546 Jul, [facility] [place] [facility] [address] [facility] [id number] [place] [address]- 2546 Jul, [facility] [place] [facility] [address] [facility] [id number], [place] [address]- 2546 Jul, [facility] [place] [facility] [address] [facility] [id number], [place] [address]- 2546 Jul, [facility] [address] [id number] [place] [id number] Jun, [facility] [address] [id number] [place] [id number] Jun, [facility] [place] [facility] [address] [facility] [id number], [place] [address]- 2546 Jun, [facility] [address] [id number] [place] [id number] Apr, [facility] [place] [facility] [address] [facility] [id number], [place] [address]- 2546 Apr, [facility] [place] [facility] [address] [facility] [id number], [place] [address]- 2546 Mar, [facility] [address] [facility] [id number] [place] [id number] Feb, [facility] [address] [facility] [id number] [place] [id number] Feb, [facility] [place] [facility] [address] [facility] [id number], [place] [address]- 7496 Feb, [facility] [address] [facility] [id number] [id number] Feb, [facility] [place] [facility] [address] [facility] [id number], [place] [address]- 4806 Feb, [facility] [place] [facility] [address] [facility] [id number], [place] [address]- 6726 Feb, [facility] [place] [facility] [address] [facility] [id number], [place] [address]- 4626 Feb, [facility] [place] [facility] [address] [facility] [id number], [place] [address]- 3356 Feb, [facility] [address] [facility] [id number] [place] [id number] January, [facility] [address] [facility] [id number] [place] [address] Dec, [facility] [address] [facility] [id number] [place] [address]- 7536 Dec, [facility] [address] [facility] [id number], [place] [address]- 0186 Dec, [facility] [address] [id number] [place] [id number] Dec, [facility] [address] [facility] [id number] [place] [address] 38091- 2546 Dec, [facility] [address] [id number] [place] [id number] Dec, [facility] [address] [id number] [place] [id number] Nov, [facility] [address] [id number] [place] 532[address] Nov, [facility] [address] [id number] [place] [id number] Nov, [facility] [address] [id number] [place] [address] Nov, [facility] [address] [facility] [id number], [place] [address]- 8376 Oct, [facility] [address] [id number] [place] [id number] Oct, [facility] [address] [id number] [place] [address] Oct, [facility] [address] [id number] [place] [id number] Oct, [facility] [address] [id number] [place] [id number] Oct, [facility] [address] [id number] [place] [id number] Sep, [facility] [address] [id number] [place] [address] Sep, [facility] [address] [facility] [id number], [place] [address]- 0554 Sep, [facility] [place] [facility] [address] [id number] [place] [address]- 3538 Sep, [facility] [place] [facility] [address] [id number] [place] [address]- 8531 Sep, [facility] [place] [facility] [address] [id number] [place] [address]- 3295 Sep, [facility] [place] [facility] [address] [id number] [place] [address]- 1452 Aug, [facility] [place] [facility] [address] [id number] [place] [address]- 9491 Aug, [facility] [place] [facility] [address] [id number] [place] [address]- 0470 Aug, [facility] [place] [facility] [address] [id number] [place] [address]- 0511 Aug, [facility] [place] [facility] [address] [id number] [place] [address]- 5516 Aug, [facility] [place] [facility] [address] [id number] [place] [address]- 4696 Aug, [facility] [place] [facility] [address] [id number] [place] [address]- 2784 Aug, [facility] [place] [facility] [address] [id number] [place] [address]- 6042 Aug, [facility] [place] [facility] [address] [id number] [place] [address]- 4218 Jun, [facility] [place] [facility] [address] [id number] [place] [address]- 3485 Jun, [facility] [place] [facility] [address] [id number] [place] [address]- 3261 Jun, [facility] [place] [facility] [address] [id number] [place] [address]- 2043 Jun, [facility] [place] [facility] [address] [id number] [place] [address]- 8836 14 Jun, 2011 [facility] [address] [facility] [id number] [place] [address] 13 Jun, 2011 [facility] [address] [facility] [id number], [place] [address] 12 Jun, 2011 [facility] [address] [facility] [id number][place] [address] 12 Jun, 2011 [facility] [address] [facility] [id number], [place] [address] 12 Jun, 2011 [facility] [address] [facility] [id number] [place] [address] 14 May, 2011 [facility] [address] [facility] [id number], [place] [address] Apr, [facility] [address] [facility] [id number], [place] [address] Feb, [facility] [address] [facility] [id number], [place] [address] Dec, [facility] [address] [facility] [id number], [place] [address] Aug, [facility] [address] [facility] [id number], [place] [address] Aug, [facility] [address] [id number], [place] [address] 15 Aug, 2010 [facility] [address] [facility] [id number], [place] [address] Aug, [facility] [address] [facility] [id number], [place] [address] Jul, [facility] [address] [facility] [id number], [place] [address] Jun, [facility] [address] [id number], [place] [address] Jun, IMMUNIZATIONS No Known Immunizations SOCIAL HISTORY Never Assessed REASON FOR VISIT f/u PLAN OF CARE Activity Details Follow Up 4 Weeks Reason: VITAL SIGNS Height 59 in 2017-09-15 Weight 219.0 lbs 2017-09-15 Heart Rate 84 bpm 2017-09-15 Respiratory Rate 22 2017-09-15 BMI 44.23 kg/m2 2017-09-15 Blood pressure systolic 140 mmHg 2017-09-15 Blood pressure diastolic 86 mmHg 2017-09-15 MEDICATIONS Medication Instructions Dosage Frequency Start Date End Date Duration Status Trazodone HCl 100 MG Orally at night as needed for sleep 0.5 -1 tablet Aug, 30 day(s) Active Ventolin HFA 108 (90 Base) MCG/ACT Inhalation every 4 hrs 2 puffs as needed 4h Active Alprazolam 0.5 MG Orally Three times a day as needed for anxeity 1 tablet 30 days Active Albuterol Sulfate (2.5 MG/3ML) 0.083% Inhalation Three times a day 3 ml 8h Active Latuda 20 MG Orally Once a day 1 tablet every dinnertime for 7 days 24h Jul, 7 days Not-Taking Latuda 60 MG Orally every dinner time 1 tablet Jul, 30 days Active Symbicort 160-4.5 MCG/ACT Inhalation Twice a day 2 puffs 12h Active Atorvastatin Calcium 40 mg Orally Once a day 1 tablet 24h 0 Active Aspir-81 81 MG Orally Once a day 1 tablet 24h Active Gabapentin 400 mg Orally Three times a day 2 capsules 8h Not- Taking Idana Carbonate 300 MG Orally daily 2 capsules in morning and one at night 24h 30 days Active Losartan Potassium-HCTZ 50-12.5 MG Orally twice a day 1 tablet 12h Active Benzonatate 100 mg Orally Three times [...] Coronary atherosclerosis of unspecified type of vessel, comanche or graft Medical History Coronary atherosclerosis of unspecified type of vessel, comanche or graft Surgical History section x4 Surgical History CABG x3 Surgical History Left arm-Plate and screws placed Hospitalization History Surgery(s)/Childbirth(s) only
--- OUTSIDE RECORDS SUMMARY | 2019-02-02 14:04 | XMS REPORT ---
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 Name Role Phone ЕКАТЕРИНА MTZ Unavailable PROBLEMS Type Condition ICD9-CM Code HSO90-SM Code Onset Dates Condition Status SNOMED Code Problem Coronary artery disease involving coronary bypass graft of hughes heart without angina pectoris I25.810 Active 027737675 Problem Chronic obstructive pulmonary disease with acute exacerbation J44.1 Active 832740867 Problem Mixed hyperlipidemia E78.2 Active 866334453 Problem Bipolar disorder, in partial remission, most recent episode depressed F31.75 Active 03025034 Problem Claudication I73.9 Active 122850063 Problem MESERET (generalized anxiety disorder) F41.1 Active 27386401 Problem Panic disorder F41.0 Active 723332036 Problem Coronary artery disease involving hughes coronary artery of hughes heart without angina pectoris I25.10 Active 7994008325917 Problem Mood disorder F39 Active 32939363 Problem Obesity (BMI 30-39.9) E66.9 Active 177607827 Problem Bipolar 1 disorder F31.9 Active 017110797 Problem PTSD (post-traumatic stress disorder) F43.10 Active 56604069 Problem Sleep apnea in adult G47.30 Active 70346989 Problem Essential hypertension I10 Active 85909746 Problem COPD mixed type J44.9 Active 77171822 ALLERGIES Substance Reaction Event Type Date Status Penicillin V Potassium Swelling/hives Drug Allergy Jun, Active Abilify dizziness Drug Allergy Jun, Active ENCOUNTERS Encounter Location Date Diagnosis [facility] [address] [facility] [id number], [place] [address] Feb, [facility] [address] [facility] [id number], [place] [address] Feb, [place] [place] [address] [id number] [id number] Feb, [place] [id number] [place] [address] January, High risk medication use Z79.899 ; Bipolar disorder, in partial remission, most recent episode depressed F31.75 ; MESERET (generalized anxiety disorder) F41.1 ; Panic disorder F41.0 and BMI 45.0-49.9, adult Z68.42 [place] [address] [place] [id number] [place] [address] 08144- 4099 January, Bipolar 1 disorder, depressed F31.9 ; PTSD (post-traumatic stress disorder) F43.10 and Panic attacks F41.0 [place] [address] [id number] [place] [address] 08967- 4596 January, Bipolar 1 disorder, depressed F31.9 ; PTSD (post-traumatic stress disorder) F43.10 and Panic attacks F41.0 [place] [address] [place] [address] 71653- 7361 Dec, BMI 45.0-49.9, adult Z68.42 ; Bipolar disorder, in partial remission, most recent episode depressed F31.75 ; MESERET (generalized anxiety disorder) F41.1 and Panic disorder F41.0 [place] [address], [place] [address] Dec, Bipolar 1 disorder, depressed F31.9 ; PTSD (post-traumatic stress disorder) F43.10 and Panic attacks F41.0 [place] [address] [place] [address] 22914- 7381 Nov, Bipolar disorder, in partial remission, most recent episode depressed F31.75 ; MESERET (generalized anxiety disorder) F41.1 and Panic disorder F41.0 [place] [address] [place] [address] 82459- 4305 Nov, [place] [address] [id number] [place] [address] 31022- 5127 Nov, [place] [address]65[address], [place] [address] Oct, BMI 45.0-49.9, adult Z68.42 ; Bipolar disorder, in partial remission, most recent episode depressed F31.75 ; MESERET (generalized anxiety disorder) F41.1 and Panic disorder F41.[address] [id number] [id number] 23 Oct, 2017 BMI 45.0-49.9, adult Z68.42 ; Coronary artery disease involving hughes coronary artery of hughes heart without angina pectoris I25.10 ; Hx of CABG Z95.1 ; Dyspnea on exertion R06.09 ; Essential hypertension I10 ; Mixed hyperlipidemia E78.2 ; Claudication I73.9 and Tobacco use Z72.0 [facility] [address] [id number] [id number] 15 Oct, 2017 BMI 45.0-49.9, adult Z68.42 ; Bipolar 1 disorder, depressed F31.9 and Abscess L02.[address] [place] [address] 84270- 7698 14 Oct, 2017 Bipolar 1 disorder, depressed F31.9 ; PTSD (post-traumatic stress disorder) F43.10 and Panic attacks F41.0 [address]65[address], [place] [address] 8[address] Sep, BMI 40.0-44.9, adult Z68.41 ; Mood disorder F39 ; MESERET ( generalized anxiety disorder) F41.1 and Panic disorder F41.0 [place] [address]00565[address], [place] [address] Sep, BMI 40.0-44.9, adult Z68.41 [address] [place] [address] 64425- 2214 Sep, Bipolar 1 disorder, depressed F31.9 ; PTSD (post-traumatic stress disorder) F43.10 and Panic attacks F41.0 [place] [address] [place] [address] 27964- 6357 Aug, BMI 40.0-44.9, adult Z68.41 ; Mood disorder F39 ; MESERET ( generalized anxiety disorder) F41.1 and Panic disorder F41.0 [facility] [id number] [place] [address] 95807- 6345 Aug, Bipolar 1 disorder, depressed F31.9 ; PTSD (post-traumatic stress disorder) F43.10 and Panic attacks F41.0 [facility] [id number] [place] [address] [id number] Aug, [facility] [id number] [place] [address] [id number] Aug, COPD mixed type J44.9 [place] [address] [address] [id number] [place] [address] 53987- 7884 Aug, [facility] [id number] [place] [address] 66395- 4868 Jul, PTSD (post-traumatic stress disorder) F43.10 ; Panic disorder F41.0 ; MESERET (generalized anxiety disorder) F41.1 ; Mood disorder F39 and BMI 40.0-44.9, adult Z68.41 [facility] [id number] [place] [address] 23742- 9817 Jul, Bipolar 1 disorder, depressed F31.9 ; PTSD (post-traumatic stress disorder) F43.10 and Panic attacks F41.0 [facility] [address] [place] [address] [id number] Jul, Bipolar 1 disorder, depressed F31.9 [facility] [id number] [place] [address] [id number] Jul, Anxiety F41.9 ; COPD mixed type J44.9 ; Essential hypertension I10 ; Bipolar 1 disorder F31.9 ; High risk medication use Z79.899 ; BMI 40.0-44.9, adult Z68.41 and Coronary artery disease involving coronary bypass graft of hughes heart without angina pectoris I25.810 [facility] [id number] [place] [address] [id number] Jul, Chronic obstructive pulmonary disease with acute exacerbation J44.1 and Acute nasopharyngitis J00 [place] [id number] [id number] Jul, Anxiety F41.9 ; Mixed hyperlipidemia E78.2 and Bipolar 1 disorder F31.9 [facility] [address] [id number] [place] [address] Jun Bipolar 1 disorder F31.9 [facility] [address] [id number] [place] [address] Jun [place] [id number] [id number] Jun, Anxiety F41.9 ; Elevated blood sugar R73.9 ; Mixed hyperlipidemia E78.2 ; COPD mixed type J44.9 ; Essential hypertension I10 ; Bipolar 1 disorder F31.9 ; Coronary artery disease involving coronary bypass graft of hughes heart without angina pectoris I25.810 ; High risk medication use Z79.899 ; Controlled substance agreement signed Z79.899 ; Elevated fasting glucose R73.01 ; Encounter for immunization Z23 and BMI 40.0-44.9, adult Z68.[address] [place] [address] [id number] Jun, Elevated blood sugar R73.[address] [place] [address] [phone] Jun, [address] [place] [address] [id number] Jun, Bipolar 1 disorder F31.9 ; Obesity (BMI 30-39.9) E66.9 ; Coronary artery disease involving coronary bypass graft of hughes heart without angina pectoris I25.810 and Essential hypertension I10 [address] [place] [address] [id number] Jun, Coronary artery disease involving coronary bypass graft of hughes heart without angina pectoris I25.810 ; Bipolar 1 disorder F31.9 ; Anxiety F41.9 ; Essential hypertension I10 ; COPD mixed type J44.9 and Mixed hyperlipidemia E78.2 [id number] [id number] May, Severe single current episode of major depressive disorder, 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.2 ; Bipolar 1 disorder F31.9 ; Anxiety F41.9 ; PTSD (post -traumatic stress disorder) F43.10 ; Coronary artery disease involving coronary bypass graft of hughes heart without angina pectoris I25.810 ; Sleep apnea in adult G47.30 ; Essential hypertension I10 ; High risk medication use Z79.899 ; Obesity (BMI 30-39.9) E66.9 ; Encounter for therapeutic drug level monitoring Z51.81 and COPD mixed type J44.9 [facility] [id number] [place] [address] [id number] May, Severe single current episode of major depressive disorder, 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.2 ; Bipolar 1 disorder F31.9 ; Anxiety F41.9 ; PTSD (post -traumatic stress disorder) F43.10 ; Mixed hyperlipidemia E78.2 ; Coronary artery disease involving coronary bypass graft of hughes heart without angina pectoris I25.810 ; Sleep apnea in adult G47.30 ; Essential hypertension I10 ; High risk medication use Z79.899 ; Controlled substance agreement signed Z79.899 ; Obesity (BMI 30-39.9) E66.9 ; Tobacco abuse Z72.0 ; Tobacco abuse counseling Z71.6 and COPD mixed type J44.9 [facility] [id number] [place] [address] [phone] May, [facility] [address], [place] [address] 98[address] Dec, [facility] [id number] [place] [address] 02675- 9824 Dec, [facility] [id number] [place] [address] 07824- 8501 May, [facility] [id number] [place] [address] 99027- 0411 May, [facility] [id number] [place] [address] [id number] Dec, [facility] [id number] [address] 9176 Dec, [facility] [address] [facility] [id number] [place] [id number] Dec, [facility] [place] [facility] [address] [facility] [id number] [place] [address] 2546 Dec, [facility] [place] [facility] [address] [facility] [id number] [place] [address]- 2546 Dec, [facility] [place] [facility] [address] [facility] [id number] [place] [address] 2546 Dec, [facility] [place] [facility] [address] [facility] [id number] [place] [address] 2546 Nov, [facility] [address] [facility] [id number] [place] [id number] Nov, [facility] [address] [facility] [id number] [place] [id number] Nov, [facility] [address] [facility] [id number][place] [address] Nov, [facility] [place] [facility] [address] [facility] [id number] [place] [address]- 6446 Nov, [facility] [place] [facility] [address] [facility] [id number] [place] [address]- 0116 Nov, [facility] [place] [facility] [address] [facility] [id number], [place] [address]- 0996 Nov, [facility] [place] [facility] [address] [facility] [id number], [place] [address]- 7216 15 Nov, 2013 [facility] [place] [facility] [address] [facility] [id number] [place] [address]- 6594 14 Nov, 2013 [facility] [place] [facility] [address] [facility] [id number] [place] [address]- 9646 Nov, [facility] [address] [id number][place] [id number] Nov, [facility] [address] [facility] [id number][place] [id number] Oct, [facility] [place] [facility] [address] [id number], [place] [address]- 1280 Oct, [facility] [address] [facility] [id number] [place] [id number] Oct, [facility] [place] [facility] [address] [facility] [id number], [place] [address]- 1356 Oct, [facility] [place] [facility] [address] [id number], [place] [address] 2546 Oct, [facility] [address] [id number][place] [address] Sep, [facility] [place] [facility] [address] [id number], [place] [address]- 7826 Sep, [facility] [address] [place] [id number] [id number] Sep, [facility] [place] [facility] [address], [place] [address]- 5696 Sep, [facility] [place] [facility] [address] [address] [id number], [place] [address]- 5307 Sep, [facility] [place] [facility] [address], [place] [address]- 7545 Sep, [facility] [place] [facility] [address]65[address], [place] [address]- 7066 Aug, [facility] [address] [place] [id number] [address] Aug, [facility] [place] [facility] [address] [facility] [id number], [place] [address]- 2546 Aug, [facility] [address] [facility] [id number][place] [id number] Jul, [facility] [place] [facility] [address] [facility] [id number], [place] [address]- 2546 Jul, [facility] [address] [place] [id number] [address] Jul, [facility] [place] [facility] [address], [place] [address]- 3277 Jul, [facility] [address] [facility] [id number], [place] [address]- 7335 May, [facility] [place] [facility] [address] [facility] [id number], [place] [address]- 3264 Apr, [facility] [address] [facility] [id number], [place] [address] 2547 Apr, [facility] [place] [facility] [address] [facility] [id number], [place] [address]- 6607 Mar, [facility] [address] [id number], [place] [id number] Feb, [facility] [address] [id number], [place] [id number] Feb, [facility] [address] [place] [address] [id number][place] [address] Feb, [facility] [address]00565[address], [place] [address]- 7190 Feb, [facility] [address]00565100[place], [place] [address]- 4995 January, [facility] [address]00565[address], [place] [address]- 1172 January, [facility] [address] [id number], [place] [address] Dec, [facility] [address] [id number], [place] 346[address] Dec, [facility] [address] [id number], [place] 507[address]8878 Dec, [facility] [address] [id number] [place] [address] Dec, [facility] [address] [id number] [place] 163[address]83 Dec, [facility] [address] [id number] [place] [id number] Dec, [facility] [place] [facility] [address]00565100[place], [place] [address]- 2546 Dec, [facility] [address] [id number], [place] [address]- 2546 Dec, [facility] [address] [id number] [place] [id number] Nov, [facility] [address] [facility] [id number] [place] 1305[address] Nov, [facility] [address] [facility] [id number] [place] [id number] Nov, [facility] [address] [facility] [id number] [place] [address]- 5836 Oct, [facility] [place] [facility] [address] [facility] [id number], [place] [address]- 2546 Oct, [facility] [place] [facility] [address], [place] [address]- 3956 Sep, [facility] [place] [facility] [address] [id number], [place] [address] Aug, [facility] [place] [facility] [address] [facility] [id number], [place] [address]- 1906 Aug, [facility] [place] [facility] [address] [id number], [place] [address]- 8112 Aug, [facility] [place] [facility] [address] [id number], [place] [address]- 5676 Aug, [facility] [address] [place] [id number], [place] [address] Aug, [facility] [place] [facility] [address] [facility] [id number], [place] [address]- 0278 Aug, [facility] [place] [facility] [address] [facility] [id number], [place] [address]- 5876 Jul, [facility] [place] [facility] [address] [facility] [id number], [place] [address]- 6846 Jul, [facility] [place] [facility] [address], [place] [address]- 3596 Jul, [facility] [place] [facility] [address] [id number], [place] [address]- 2546 Jul, [facility] [address] [id number] [place] [id number] Jun, [facility] [address] [id number] [place] [id number] Jun, [facility] [place] [facility] [address] [id number], [place] [address]- 2546 Jun, [facility] [address] [id number] [place] [id number] Apr, [facility] [place] [facility] [address] [facility] [id number] [place] [address] 2546 Apr, [facility] [place] [facility] [address] [facility] [id number], [place] [address] 2546 Mar, [facility] [address] [id number], [place] 374197474 Feb, [facility] [address] [id number], [place] 153395593 Feb, [facility] [place] [facility] [address] [facility] [id number], [place] [address]- 5959 Feb, [facility] [address] [id number], [place] 852623082 Feb, [facility] [place] [facility] [address] [facility] [id number], [place] [address]- 9305 Feb, [facility] [place] [facility] [address] [facility] [id number], [place] [address]- 6154 Feb, [facility] [place] [facility] [address] [facility] [id number], [place] [address]- 1881 Feb, [facility] [place] [facility] [address] [facility] [id number], [place] [address]- 0129 Feb, [facility] [address] [id number], [place] [id number] January, [facility] [address] [id number] [place] [id number] Dec, [facility] [address] [facility] [id number] [place] [address]- 4682 Dec, [facility] [place] [facility] [address] [facility] [id number], [place] [address]- 5502 Dec, [facility] [address] [id number] [place] [id number] Dec, [facility] [address] [facility] [id number], [place] [address]- 1220 Dec, [facility] [address] [id number] [place] 388[address]23[address] Dec, [facility] [address] [id number] [place] 073608995 Nov, [facility] [address] [id number] [place] [id number] Nov, [facility] [address] [id number] [place] 410347495 Nov, [facility] [address] [id number] [place] [id number] Nov, [facility] [address]65100[place], [place] [address]- 3156 Oct, [facility] [address] [id number] [place] [id number] Oct, [facility] [address] [id number] [place] 627026401 Oct, [facility] [address] [id number] [place] 828865396 Oct, [facility] [address] [id number] [place] [id number] Oct, [facility] [address] [id number] [place] 863137575 Sep, [facility] [address] [id number] [place] 587417290 Sep, [facility] [address]00565100[place], [place] [address]- 8190 Sep, [facility] [address] [id number] [place] [address]- 9570 Sep, [facility] [place] [facility] [address] [id number] [place] [address]- 7751 Sep, [facility] [place] [facility] [address] [id number] [place] [address]- 9195 Sep, [facility] [place] [facility] [address] [id number] [place] [address]- 5959 Aug, [facility] [place] [facility] [address] [id number] [place] [address]- 5938 Aug, [facility] [place] [facility] [address] [id number] [place] [address]- 2295 Aug, [facility] [place] [facility] [address] [id number] [place] [address]- 1711 Aug, [facility] [place] [facility] [address] [id number] [place] [address]- 9795 Aug, [facility] [place] [facility] [address] [id number] [place] [address]- 4158 Aug, [facility] [place] [facility] [address] [id number] [place] [address]- 4782 Aug, [facility] [place] [facility] [address] [id number] [place] [address]- 3861 Aug, [facility] [place] [facility] [address] [id number], [place] [address]- 9330 Jun, [facility] [place] [facility] [address] [id number] [place] [address]- 0792 Jun, [facility] [place] [facility] [address] [id number] [place] [address]- 1348 Jun, [facility] [place] [facility] [address] [id number] [place] [address]- 0423 Jun, [facility] [place] [facility] [address] [facility] [id number], [place] [address]- 7864 14 Jun[facility] 2011 [facility] [address] [facility] [id number] [place] [address] 13 Jun, 2011 [facility] [address] [facility] [id number] [place] [address] 12 Jun, 2011 [facility] [address] [facility] [id number], [place] [address] 12 Jun, 2011 [facility] [address] [facility] [id number] [place] [address] 12 Jun, 2011 [facility] [address] [facility] [id number] [place] [address] 14 May, 2011 [facility] [address] [facility] [id number] [place] [address] 10 Apr, 2011 [facility] [id number], [place] [address] 16 Feb, 2011 [facility] [id number], [place] [address] 20 Dec, 2010 [facility] [id number], [place] [address] 28 Aug, 2010 [facility] [id number], [place] [address] 28 Aug, 2010 [facility] [id number], [place] [address] 15 Aug, 2010 [facility] [id number], [place] [address] Aug, [facility] [id number], [place] [address] 05 Jul, 2010 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 PLAN OF CARE Activity Details Follow Up 4 Weeks Reason:CHM bipolar VITAL SIGNS Height 59 in 2017-07-09 Weight 209.4 lbs 2017-07-09 Temperature 97.8 degrees Fahrenheit 2017-07-09 Heart Rate 78 bpm 2017-07-09 Respiratory Rate 18 2017-07-09 BMI 42.29 kg/m2 2017-07-09 Blood pressure systolic 130 mmHg 2017-07-09 Blood pressure diastolic 78 mmHg 2017-07-09 MEDICATIONS Medication Instructions Dosage Frequency Start Date End Date Duration Status Alprazolam 0.5 MG Orally 2 times per day, must last 1 month 1 tablet Active Albuterol Sulfate (2.5 MG/3ML) 0.083% Inhalation Three times a day 3 ml 8h Active Ventolin HFA 108 (90 Base) MCG/ACT Inhalation every 4 hrs 2 puffs as needed 4h Active Robinson Carbonate 300 MG Orally 2 times a day 2 capsules 12h Active Atorvastatin Calcium 40 mg Orally Once a day 1 tablet 24h Active Aspir-81 81 MG Orally Once a day 1 tablet 24h Active Losartan Potassium-HCTZ 50-12.5 MG Orally twice a day 1 tablet 12h Active Symbicort 160-4.5 MCG/ACT Inhalation Twice a day 2 puffs 12h Active Gabapentin 400 mg Orally Three times a day 2 capsules 8h Active RESULTS Name Result Date Reference Range A1C (IN HOUSE) 2017-07-09 A1C IN HOUSE 6.2 4.3 - 5.6 % Previous A1c Lot [id number] Exp date 03/2019 LITHIUM (ESKALITH(R)), SERUM 2017-07-09 LITHIUM 0.4 0.6-1.2 [employer] PROCEDURES Procedure Date Ordered Result Body Site No Charge Jul 09, 2017 SINGLE IMMUNIZATION ADMIN Jul 09, 2017 GLYCATED HEMOGLOBIN TEST Jul 09, 2017 ASSAY OF LITHIUM Jul 09, 2017 FLUARIX QUAD (3 & UP)-[id number] 09, 2017 VENIPUNCT, ROUTINE* Jul 09, 2017 INSTRUCTIONS MEDICATIONS ADMINISTERED No Known Medications [...] Coronary atherosclerosis of unspecified type of vessel, hughes or graft Medical History Coronary atherosclerosis of unspecified type of vessel, hughes or graft Surgical History section x4 Surgical History CABG x3 Surgical History Left arm-Plate and screws placed Hospitalization History Surgery(s)/Childbirth(s) only
--- OUTSIDE RECORDS SUMMARY | 2019-02-02 14:04 | XMS REPORT ---
Author Author MAL SHARMA Organization [facility] Address [address] [place] [address] Care Team Providers Care Business Transformation Manager Name Role Phone MAL SHARMA Unavailable PROBLEMS Type Condition ICD9-CM Code ARS18-FS Code Onset Dates Condition Status SNOMED Code Problem Coronary artery disease involving coronary bypass graft of elem heart without angina pectoris I25.810 Active 937185293 Problem Chronic obstructive pulmonary disease with acute exacerbation J44.1 Active 657056875 Problem Mixed hyperlipidemia E78.2 Active 809071252 Problem Bipolar disorder, in partial remission, most recent episode depressed F31.75 Active 52364247 Problem Claudication I73.9 Active 474145635 Problem MESERET (generalized anxiety disorder) F41.1 Active 86292747 Problem Panic disorder F41.0 Active 655312110 Problem Coronary artery disease involving elem coronary artery of elem heart without angina pectoris I25.10 Active 0508785277710 Problem Mood disorder F39 Active 26341910 Problem Obesity (BMI 30-39.9) E66.9 Active 408173627 Problem Bipolar 1 disorder F31.9 Active 760639470 Problem PTSD (post-traumatic stress disorder) F43.10 Active 82974892 Problem Sleep apnea in adult G47.30 Active 79872371 Problem Essential hypertension I10 Active 73708070 Problem COPD mixed type J44.9 Active 03586952 ALLERGIES No Information ENCOUNTERS Encounter Location Date Diagnosis [facility] [address] [facility] [id number], [place] [address] Feb, [facility] [address] [facility] [id number] [address] Feb, [place] [place] [id number] [id number] Feb, [facility] [address] [facility] [id number], [place] [address] January, High risk medication use Z79.899 ; Bipolar disorder, in partial remission, most recent episode depressed F31.75 ; MESERET (generalized anxiety disorder) F41.1 ; Panic disorder F41.0 and BMI 45.0-49.9, adult Z68.42 [facility] [address] [place] [address]69- 3310 January, Bipolar 1 disorder, depressed F31.9 ; PTSD (post-traumatic stress disorder) F43.10 and Panic attacks F41.0 [address] [address] [place] [id number] [place] [address]6660- 4507 January, Bipolar 1 disorder, depressed F31.9 ; PTSD (post-traumatic stress disorder) F43.10 and Panic attacks F41.0 [place] [address] [place] [id number] [place] [address] 99563- 9462 Dec, BMI 45.0-49.9, adult Z68.42 ; Bipolar disorder, in partial remission, most recent episode depressed F31.75 ; MESERET (generalized anxiety disorder) F41.1 and Panic disorder F41.0 [id number] [place] [address] 61607- 2135 Dec, Bipolar 1 disorder, depressed F31.9 ; PTSD (post-traumatic stress disorder) F43.10 and Panic attacks F41.0 [place] [address] [place] [address] 50649- 1819 Nov, Bipolar disorder, in partial remission, most recent episode depressed F31.75 ; MESERET (generalized anxiety disorder) F41.1 and Panic disorder F41.0 [facility] [address] [place] [address] 12878- 0780 Nov, [facility] [id number] [place] [address] 71391- 6893 Nov, [facility] [id number] [place] [address] 41036- 9271 Oct, BMI 45.0-49.9, adult Z68.42 ; Bipolar disorder, in partial remission, most recent episode depressed F31.75 ; MESERET (generalized anxiety disorder) F41.1 and Panic disorder F41.[address] [id number][place] [id number] 23 Oct, 2017 BMI 45.0-49.9, adult Z68.42 ; Coronary artery disease involving elem coronary artery of elem heart without angina pectoris I25.10 ; Hx of CABG Z95.1 ; Dyspnea on exertion R06.09 ; Essential hypertension I10 ; Mixed hyperlipidemia E78.2 ; Claudication I73.9 and Tobacco use Z72.0 [facility] [address] [facility] [id number] [place] [id number] 15 Oct, 2017 BMI 45.0-49.9, adult Z68.42 ; Bipolar 1 disorder, depressed F31.9 and Abscess L02.91 [facility] [address] [place] [address] 15409- 5701 14 Oct, 2017 Bipolar 1 disorder, depressed F31.9 ; PTSD (post-traumatic stress disorder) F43.10 and Panic attacks F41.0 [place] [address] [place] [address] 17835- 7732 Sep, BMI 40.0-44.9, adult Z68.41 ; Mood disorder F39 ; MESERET ( generalized anxiety disorder) F41.1 and Panic disorder F41.0 [facility] [address] [place] [address] 71141- 1147 Sep, BMI 40.0-44.9, adult Z68.41 [facility] [address] [place] [address] 61319- 2810 Sep, Bipolar 1 disorder, depressed F31.9 ; PTSD (post-traumatic stress disorder) F43.10 and Panic attacks F41.0 [facility] [address] [place] [address] 48434- 1934 Aug, BMI 40.0-44.9, adult Z68.41 ; Mood disorder F39 ; MESERET ( generalized anxiety disorder) F41.1 and Panic disorder F41.0 [facility] [address]005[place] [address] Aug, Bipolar 1 disorder, depressed F31.9 ; PTSD (post-traumatic stress disorder) F43.10 and Panic attacks F41.0 [facility] [id number] [place] [id number] Aug, [facility] [id number] [place] [id number] Aug, COPD mixed type J44.9 [facility] [id number] [place] [address] 55832- 3376 Aug, [facility] [id number] [place] [address] 76346- 6991 30 Jul, 2017 PTSD (post-traumatic stress disorder) F43.10 ; Panic disorder F41.0 ; MESERET (generalized anxiety disorder) F41.1 ; Mood disorder F39 and BMI 40.0-44.9, adult Z68.41 [facility] [address]00565100[place] [address] 2516 Jul, Bipolar 1 disorder, depressed F31.9 ; PTSD (post-traumatic stress disorder) F43.10 and Panic attacks F41.0 [address] [place] [address] [id number] Jul, Bipolar 1 disorder, depressed F31.9 [address] [place] [address] [id number] Jul, Anxiety F41.9 ; COPD mixed type J44.9 ; Essential hypertension I10 ; Bipolar 1 disorder F31.9 ; High risk medication use Z79.899 ; BMI 40.0-44.9, adult Z68.41 and Coronary artery disease involving coronary bypass graft of elem heart without angina pectoris I25.810 [facility] [address]00565100[place] [id number] 06 Jul, 2017 Chronic obstructive pulmonary disease with acute exacerbation J44.1 and Acute nasopharyngitis J00 [facility] [address] [id number] [address] Jul, Anxiety F41.9 ; Mixed hyperlipidemia E78.2 and Bipolar 1 disorder F31.9 [facility] [address] [id number] [place] [address] Jun Bipolar 1 disorder F31.9 [facility] [address] [id number] [place] [address] Jun [place] [address] [place] [place] [id number] [place] [address] [id number] Jun, Anxiety F41.9 ; Elevated blood sugar R73.9 ; Mixed hyperlipidemia E78.2 ; COPD mixed type J44.9 ; Essential hypertension I10 ; Bipolar 1 disorder F31.9 ; Coronary artery disease involving coronary bypass graft of elem heart without angina pectoris I25.810 ; High risk medication use Z79.899 ; Controlled substance agreement signed Z79.899 ; Elevated fasting glucose R73.01 ; Encounter for immunization Z23 and BMI 40.0-44.9, adult Z68.41 [facility] [address] [place] [address] [id number] Jun, Elevated blood sugar R73.9 [address] [place] [address] [id number] Jun, [place] [id number] [place] [address] [id number] Jun, Bipolar 1 disorder F31.9 ; Obesity (BMI 30-39.9) E66.9 ; Coronary artery disease involving coronary bypass graft of elem heart without angina pectoris I25.810 and Essential hypertension I10 [facility] [address]00565100[place] [id number] Jun, Coronary artery disease involving coronary bypass graft of elem heart without angina pectoris I25.810 ; Bipolar 1 disorder F31.9 ; Anxiety F41.9 ; Essential hypertension I10 ; COPD mixed type J44.9 and Mixed hyperlipidemia E78.2 [facility] [address] [id number] [place] [id number] May, Severe single current episode of major depressive disorder, 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.2 ; Bipolar 1 disorder F31.9 ; Anxiety F41.9 ; PTSD (post -traumatic stress disorder) F43.10 ; Coronary artery disease involving coronary bypass graft of elem heart without angina pectoris I25.810 ; Sleep apnea in adult G47.30 ; Essential hypertension I10 ; High risk medication use Z79.899 ; Obesity (BMI 30-39.9) E66.9 ; Encounter for therapeutic drug level monitoring Z51.81 and COPD mixed type J44.9 [facility] [id number] [place] [address] [id number] May, Severe single current episode of major depressive disorder, 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.2 ; Bipolar 1 disorder F31.9 ; Anxiety F41.9 ; PTSD (post -traumatic stress disorder) F43.10 ; Mixed hyperlipidemia E78.2 ; Coronary artery disease involving coronary bypass graft of elem heart without angina pectoris I25.810 ; Sleep apnea in adult G47.30 ; Essential hypertension I10 ; High risk medication use Z79.899 ; Controlled substance agreement signed Z79.899 ; Obesity (BMI 30-39.9) E66.9 ; Tobacco abuse Z72.0 ; Tobacco abuse counseling Z71.6 and COPD mixed type J44.9 [place] [id number] [place] [address] [id number] May, [facility] [address] [id number]- 6584 Dec, [facility] [id number] [place] [address] 81963- 9439 Dec, [facility] [address] 08945191- 2221 May, [facility] [id number] [place] [address] 27478- 4801 May, [place] [id number] [place] [address] [id number] Dec, [facility] [id number] [place] [address] 82697- 0239 Dec, [facility] [address] [id number] Dec, [facility] [place] [facility] [address] [id number] [place] [address]- 3366 Dec, [facility] [place] [facility] [address] [facility] [id number] [place] [address]- 2546 Dec, [facility] [place] [facility] [address] [facility] [id number] [place] [address]- 2546 Dec, [facility] [place] [facility] [address] [facility] [id number] [place] [address]- 2546 Nov, [facility] [address] [id number] [place] [id number] Nov, [facility] [address] [id number] [place] [id number] Nov, [facility] [address] [id number] [place] [address] Nov, [facility] [place] [facility] [address] [facility] [id number] [place] [address]- 2626 Nov, [facility] [place] [facility] [address] [facility] [id number] [place] [address]- 3041 Nov, [facility] [place] [facility] [address] [facility] [id number] [place] [address]- 1816 Nov, [facility] [place] [facility] [address] [facility] [id number], [place] [address]- 1676 15 Nov, 2013 [facility] [place] [facility] [address] [facility] [id number], [place] [address]- 6296 14 Nov, 2013 [facility] [place] [facility] [address] [id number] [place] [address]- 8652 Nov, [facility] [address] [id number] [place] [id number] Nov, [facility] [address] [id number] [place] [id number] Oct, [facility] [place] [facility] [address] [facility] [id number] [place] [address] 2546 Oct, [facility] [address] [facility] [id number] [place] [address] Oct, [facility] [place] [facility] [address] [facility] [id number], [place] [address]- 5977 Oct, [facility] [place] [facility] [address] [facility] [id number][place] [address]- 0066 Oct, [facility] [address] [id number] [place] [address] Sep, [facility] [place] [facility] [address] [facility] [id number] 123100- 5889 Sep, [facility] [address] [facility] [id number] [place] [address]25[address] Sep, [facility] [place] [facility] [address]00565100[place], [place] [address]- 6283 Sep, [facility] [place] [facility] [address]00565100[place], [place] [address]- 2156 Sep, [facility] [place] [facility] [id number], [place] [address]- 8039 Sep, [facility] [place] [facility] [address]00565100[place], [place] [address]- 4077 Aug, [facility] [id number] [place] [address] Aug, [facility] [place] [facility] [address] [id number], [place] [address]- 3746 Aug, [facility] [id number] [place] [id number] Jul, [facility] [place] [facility] [address] [facility] [id number], [place] [address]- 4564 Jul, [facility] [address] [facility] [id number] [place] [address] Jul, [facility] [place] [facility] [address] [id number], [place] [address]- 6720 Jul, [facility] [place] [facility] [address]00565100[place], [place] [address]- 5391 May, [facility] [address] [facility] [id number], [place] [address]- 5838 Apr, [facility] [place] [facility] [address] [id number], [place] [address]- 4381 Apr, [facility] [address] [id number], [place] [address]- 0025 Mar, [facility] [address] [id number] [place]ULT[place] 774855391 Feb, [facility] [address] [id number] [place] [id number] Feb, [facility] [address] [facility] [id number] [place] 722692190 Feb, [facility] [address]00565100[place], [place] [address]- 8048 Feb, [facility] [address]00565100[place], [place] [address]- 6727 January, [facility] [address] [id number], [place] [address]- 9860 January, [facility] [address] [id number] [place] 095345340 Dec, [facility] [address] [id number] [place]ULT[place] 054674[address] Dec, [facility] [address] [id number] [place] 449874277 Dec, [facility] [address] [id number] [place] 863800749 Dec, [facility] [address] [id number] [place] 4312[address] Dec, [facility] [address] [facility] [id number] [place] 049115451 Dec, [facility] [place] [facility] [address] [id number], [place] [address]- 5796 Dec, [facility] [place] [facility] [address]00565100[place], [place] [address]- 2546 Dec, [facility] [address] [id number] [place] 334740782 Nov, [facility] [address] [id number] [place] [address] Nov, [facility] [address] [id number] [place] 377115038 Nov, [facility] [place] [facility] [address] [facility] [id number] [place] [address]- 2546 Oct, [facility] [place] [facility] [address] [facility] [id number] [place] [address]- 2546 Oct, [facility] [place] [facility] [address] [facility] [id number] [place] [address]- 2546 Sep, [facility] [place] [facility] [address] [id number] [address]- 0026 Aug, [facility] [place] [facility] [address] [facility] [id number], [place] [address]- 6246 Aug, [facility] [place] [facility] [address] [facility] [id number], [place] [address]- 5776 Aug, [facility] [place] [facility] [address] [id number], [place] [address]- 2556 Aug, [facility] [address] [facility] [id number] [place] [id number] Aug, [facility] [place] [facility] [address] [facility] [id number], [place] [address]- 9786 Aug, [facility] [place] [facility] [address] [facility] [id number], [place] [address]- 2546 Jul, [facility] [place] [facility] [address] [facility] [id number], [place] [address]- 1486 Jul, [facility] [place] [facility] [address] [facility] [id number], [place] [address]- 2546 Jul, [facility] [place] [facility] [address] [facility] [id number], [place] [address]- 2546 Jul, [facility] [address] [id number] [place] 979879000 Jun, [facility] [address] [facility] [id number] [place] 623286695 Jun, [facility] [place] [facility] [address] [facility] [id number], [place] [address]- 2546 Jun, [facility] [address] [facility] [id number] [place] 58[address]1968[address] Apr, [facility] [place] [facility] [address] [facility] [id number], [place] [address]- 2546 Apr, [facility] [place] [facility] [address] [facility] [id number], [place] [address]- 2546 Mar, [facility] [address] [facility] [id number] [place] 220937219 Feb, [facility] [address] [facility] [id number] [place] 596540170 Feb, [facility] [place] [facility] [address] [facility] [id number], [place] [address] 2546 Feb, [facility] [address] [facility] [id number] [place]ULT[place] 804017037 Feb, [facility] [place] [facility] [address]00565100[place], [place] [address]- 7946 Feb, [facility] [place] [facility] [address]00565100[place], [place] [address]- 7026 Feb, [facility] [place] [facility] [address]00565100[place], [place] [address]- 2546 Feb, [facility] [place] [facility] [address] [facility] [id number], [place] [address]- 2306 Feb, [facility] [address] [facility] [id number] [place] 6974723[address] January, [facility] [address] [facility] [id number] [place] 378035393 Dec, [facility] [place] [facility] [address]00565100[place], [place] [address]- 7196 Dec, [facility] [address] [facility] [id number], [place] [address]- 7802 Dec, [facility] [address] [id number] [place] [address]39435020 Dec, [facility] [address] [facility] [id number], [place] [address]- 8613 Dec, [facility] [address] [id number] [place] 5077957[address] Dec, [facility] [address] [id number] [place] 049285296 Nov, [facility] [address] [id number] [place] 162679933 Nov, [facility] [address] [id number] [place] 353372273 Nov, [facility] [address] [id number] [place] 5958[address] Nov, [facility] [address]00565100[place], [place] [address]- 2596 Oct, [facility] [address] [id number] [place] 316352716 Oct, [facility] [address] [id number] [place] 449766103 Oct, [facility] [address] [id number] [place] 475779638 Oct, [facility] [address] [id number] [place] [id number] Oct, [facility] [address] [id number] [place] 67[address]597[address] Sep, [facility] [address] [id number] [place] 627057762 Sep, [facility] [address] [facility] [id number], [place] [address]- 2430 Sep, [facility] [address]00565100[place] [address]- 1967 Sep, [facility] [address] [id number] [place] [address]- 9010 Sep, [facility] [place] [facility] [address] [id number] [place] [address]- 2943 Sep, [facility] [place] [facility] [address] [id number] [place] [address]- 7515 Aug, [facility] [place] [facility] [address] [id number] [place] [address]- 1534 Aug, [facility] [address] [id number] [place] [address]- 9128 Aug, [facility] [place] [facility] [address] [id number] [place] [address]- 0302 Aug, [facility] [address] [id number] [place] [address]- 9906 Aug, [facility] [place] [facility] [address] [id number] [place] [address]- 2856 Aug, [facility] [place] [facility] [address] [id number] [place] [address] Aug, [facility] [place] [facility] [address] [id number] [place] [address] Aug, [facility] [place] [facility] [address] [id number] [place] [address] Jun, [facility] [place] [facility] [address] [id number], [place] [address] 27 Jun, 2011 [facility] [place] [facility] [address] [id number] [place] [address] Jun, [facility] [place] [facility] [address] [id number] [place] [address] 19 Jun, 2011 [facility] [place] [facility] [address] [id number], [place] [address] 14 Jun, 2011 [facility] [place] [facility] [address] [id number], [place] [address] 13 Jun, 2011 [facility] [id number] [address] Jun, [facility] [id number] [address] Jun, [facility] [id number] [address] Jun, [facility] [id number] [place] [address] 14 May, 2011 [facility] [id number] [place] [address] Apr, [facility] [id number] [place] [address] Feb, [facility] [id number] [place] [address] Dec, [facility] [id number] [address] Aug, [facility] [id number], [place] [address] Aug, [facility] [id number], [place] [address] Aug, [facility] [id number], [place] [address] Aug, [facility] [id number], [place] [address] Jul, [facility] [id number], [place] [address] Jun, [facility] [id number], [place] [address] Jun, IMMUNIZATIONS No Known Immunizations SOCIAL HISTORY Never Assessed REASON FOR VISIT intake PLAN OF CARE Activity Details Follow Up 2 Weeks, 1 hour only Reason: VITAL SIGNS MEDICATIONS Unknown Medications RESULTS No Results PROCEDURES Procedure Date Ordered Result Body Site Psych diagnostic evaluation, established patient Aug 18, 2017 INSTRUCTIONS MEDICATIONS ADMINISTERED No Known Medications [...] Coronary atherosclerosis of unspecified type of vessel, elem or graft Medical History Coronary atherosclerosis of unspecified type of vessel, elem or graft Surgical History section x4 Surgical History CABG x3 Surgical History Left arm-Plate and screws placed Hospitalization History Surgery(s)/Childbirth(s) only
--- OUTSIDE RECORDS SUMMARY | 2019-02-02 14:05 | XMS REPORT ---
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 Name Role Phone MAL SHARMA Unavailable PROBLEMS Type Condition ICD9-CM Code [id number] Code Onset Dates Condition Status SNOMED Code Problem Coronary artery disease involving coronary bypass graft of [place] heart without angina pectoris I25.810 Active 206260020 Problem Chronic obstructive pulmonary disease with acute exacerbation J44.1 Active 076593976 Problem Mixed hyperlipidemia E78.2 Active 541473655 Problem Bipolar disorder, in partial remission, most recent episode depressed F31.75 Active 82795231 Problem Claudication I73.9 Active 316291262 Problem MESERET (generalized anxiety disorder) F41.1 Active 04202730 Problem Panic disorder F41.0 Active 922895491 Problem Coronary artery disease involving [place] coronary artery of [place] heart without angina pectoris I25.10 Active 4783485076931 Problem Mood disorder F39 Active 68995116 Problem Obesity (BMI 30-39.9) E66.9 Active 174745129 Problem Bipolar 1 disorder F31.9 Active 561749592 Problem PTSD (post-traumatic stress disorder) F43.10 Active 71274828 Problem Sleep apnea in adult G47.30 Active 27935803 Problem Essential hypertension I10 Active 73349419 Problem COPD mixed type J44.9 Active 86060559 ALLERGIES No Information ENCOUNTERS Encounter Location Date Diagnosis [facility] [address] [facility] [id number] [place] [address] Apr, [facility] [address] [facility] [id number], [place] [address] Mar, [facility] [address] [id number] [id number] Mar, [facility] [address] [facility] [id number], [place] [address] Feb, Bipolar disorder, in partial remission, most recent episode depressed F31.75 ; MESERET (generalized anxiety disorder) F41.1 ; Panic disorder F41.0 and BMI 45.0-49.9, adult Z68.42 [place] [address], [place] [address] Feb, Bipolar 1 disorder, depressed F31.9 ; PTSD (post-traumatic stress disorder) F43.10 and Panic attacks F41.0 [place] [address], [place] [address] Feb, High risk medication use Z79.899 [place] [address] [place] [address] [id number] [place] [address] January, High risk medication use Z79.899 ; Bipolar disorder, in partial remission, most recent episode depressed F31.75 ; MESERET (generalized anxiety disorder) F41.1 ; Panic disorder F41.0 and BMI 45.0-49.9, adult Z68.42 [place] [address]005[address]100[place], [place] [address] January, Bipolar 1 disorder, depressed F31.9 ; PTSD (post-traumatic stress disorder) F43.10 and Panic attacks F41.0 [place] [address], [place] [address] January, Bipolar 1 disorder, depressed F31.9 ; PTSD (post-traumatic stress disorder) F43.10 and Panic attacks F41.0 [place] [address]100[place], [place] [address] Dec, BMI 45.0-49.9, adult Z68.42 ; Bipolar disorder, in partial remission, most recent episode depressed F31.75 ; MESERET (generalized anxiety disorder) F41.1 and Panic disorder F41.0 [place] [address] [place] [id number], [place] [address] Dec, Bipolar 1 disorder, depressed F31.9 ; PTSD (post-traumatic stress disorder) F43.10 and Panic attacks F41.0 [facility] [address] [address] [id number], [place] [address] Nov, Bipolar disorder, in partial remission, most recent episode depressed F31.75 ; MESERET (generalized anxiety disorder) F41.1 and Panic disorder F41.0 [facility] [address] [place] [address] [id number], [place] [address] Nov, [facility] [address], [place] [address] Nov, [facility] [address] [address] [id number], [place] [address] Oct, BMI 45.0-49.9, adult Z68.42 ; Bipolar disorder, in partial remission, most recent episode depressed F31.75 ; MESERET (generalized anxiety disorder) F41.1 and Panic disorder F41.[address] [id number] [id number] 23 Oct, 2017 BMI 45.0-49.9, adult Z68.42 ; Coronary artery disease involving [place] coronary artery of [place] heart without angina pectoris I25.10 ; Hx of CABG Z95.1 ; Dyspnea on exertion R06.09 ; Essential hypertension I10 ; Mixed hyperlipidemia E78.2 ; Claudication I73.9 and Tobacco use Z72.0 [facility] [address] [facility] [id number] [address] 15 Oct, 2017 BMI 45.0-49.9, adult Z68.42 ; Bipolar 1 disorder, depressed F31.9 and Abscess L02.91 [facility] [address] [place] [address] [id number], [place] [address] 14 Oct, 2017 Bipolar 1 disorder, depressed F31.9 ; PTSD (post-traumatic stress disorder) F43.10 and Panic attacks F41.0 [facility] [address] [facility] [id number], [place] [address] Sep, BMI 40.0-44.9, adult Z68.41 ; Mood disorder F39 ; MESERET ( generalized anxiety disorder) F41.1 and Panic disorder F41.0 [facility] [id number] [place] [address]- [address] Sep, BMI 40.0-44.9, adult Z68.41 [facility] [address] [id number] [place] [address]- 4334 Sep, Bipolar 1 disorder, depressed F31.9 ; PTSD (post-traumatic stress disorder) F43.10 and Panic attacks F41.0 [place] [address] [place] [id number] [place] [address]- 8143 Aug, BMI 40.0-44.9, adult Z68.41 ; Mood disorder F39 ; MESERET ( generalized anxiety disorder) F41.1 and Panic disorder F41.0 [place] [address] [id number] [place] [address]- 5[address] Aug, Bipolar 1 disorder, depressed F31.9 ; PTSD (post-traumatic stress disorder) F43.10 and Panic attacks F41.0 [facility] [id number] [place] [id number] Aug, [facility] [address] [id number] Aug, COPD mixed type J44.9 [place] [address] [place] [address] [id number] [place] [address]96- 3765 Aug, [place] [address] [place] [address] [id number] [place] [address]- 0915 Jul, PTSD (post-traumatic stress disorder) F43.10 ; Panic disorder F41.0 ; MESERET (generalized anxiety disorder) F41.1 ; Mood disorder F39 and BMI 40.0-44.9, adult Z68.41 [place] [address] [place] [address]- 3027 Jul, Bipolar 1 disorder, depressed F31.9 ; PTSD (post-traumatic stress disorder) F43.10 and Panic attacks F41.0 [facility] [address] [id number] [id number] Jul, Bipolar 1 disorder, depressed F31.9 [facility] [address]005[address] [id number] Jul, Anxiety F41.9 ; COPD mixed type J44.9 ; Essential hypertension I10 ; Bipolar 1 disorder F31.9 ; High risk medication use Z79.899 ; BMI 40.0-44.9, adult Z68.41 and Coronary artery disease involving coronary bypass graft of [place] heart without angina pectoris I25.810 [facility] [address] [place] [id number] Jul, Chronic obstructive pulmonary disease with acute exacerbation J44.1 and Acute nasopharyngitis J00 [address] [place] [address] [id number] Jul, Anxiety F41.9 ; Mixed hyperlipidemia E78.2 and Bipolar 1 disorder F31.9 [facility] [address] [id number] [place] [address] Jun Bipolar 1 disorder F31.9 [facility] [address] [id number] [place] [address] Jun [address]005[address] [id number] Jun, Anxiety F41.9 ; Elevated blood sugar R73.9 ; Mixed hyperlipidemia E78.2 ; COPD mixed type J44.9 ; Essential hypertension I10 ; Bipolar 1 disorder F31.9 ; Coronary artery disease involving coronary bypass graft of [place] heart without angina pectoris I25.810 ; High risk medication use Z79.899 ; Controlled substance agreement signed Z79.899 ; Elevated fasting glucose R73.01 ; Encounter for immunization Z23 and BMI 40.0-44.9, adult Z68.41 [facility] [address] [place] [address] [id number] Jun, Elevated blood sugar R73.9 [address] [place] [address] [id number] Jun, [place] [id number] [place] [address] [id number] Jun, Bipolar 1 disorder F31.9 ; Obesity (BMI 30-39.9) E66.9 ; Coronary artery disease involving coronary bypass graft of [place] heart without angina pectoris I25.810 and Essential hypertension I10 [place] [id number] [id number] Jun, Coronary artery disease involving coronary bypass graft of [place] heart without angina pectoris I25.810 ; Bipolar 1 disorder F31.9 ; Anxiety F41.9 ; Essential hypertension I10 ; COPD mixed type J44.9 and Mixed hyperlipidemia E78.2 [place] [id number] [address] May, Severe single current episode of major depressive disorder, 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.2 ; Bipolar 1 disorder F31.9 ; Anxiety F41.9 ; PTSD (post -traumatic stress disorder) F43.10 ; Coronary artery disease involving coronary bypass graft of [place] heart without angina pectoris I25.810 ; Sleep apnea in adult G47.30 ; Essential hypertension I10 ; High risk medication use Z79.899 ; Obesity (BMI 30-39.9) E66.9 ; Encounter for therapeutic drug level monitoring Z51.81 and COPD mixed type J44.9 [place] [id number] [place] [id number] May, Severe single current episode of major depressive disorder, 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.2 ; Bipolar 1 disorder F31.9 ; Anxiety F41.9 ; PTSD (post -traumatic stress disorder) F43.10 ; Mixed hyperlipidemia E78.2 ; Coronary artery disease involving coronary bypass graft of [place] heart without angina pectoris I25.810 ; Sleep apnea in adult G47.30 ; Essential hypertension I10 ; High risk medication use Z79.899 ; Controlled substance agreement signed Z79.899 ; Obesity (BMI 30-39.9) E66.9 ; Tobacco abuse Z72.0 ; Tobacco abuse counseling Z71.6 and COPD mixed type J44.[address] [id number] [id number] May, [facility] [address] [place] [id number] [address] Dec, [facility] [place] [facility] [address] [id number] [place] [address] Dec, [facility] [place] [facility] [address] [id number] [place] [address]- 3606 May, [facility] [place] [facility] [address] [facility] [id number] [place] [address]- 3966 May, [facility] [place] [address] [facility] [id number] [place] [id number] Dec, [facility] [place] [facility] [address] [id number] [place] [address]- 1568 Dec, [facility] [place] [address] [facility] [id number] [place] [address] Dec, [facility] [place] [facility] [address] [facility] [id number] [place] [address]- 5816 Dec, [facility] [place] [facility] [address] [place] [id number] [place] [address]- 2136 Dec, [facility] [place] [facility] [address] [facility] [id number] [place] [address]- 2355 Dec, [facility] [place] [facility] [address] [facility] [id number] [place] [address]- 3756 Nov, [facility] [place] [address] [facility] [id number][place] [id number] Nov, [facility] [place] [address] [facility] [id number][place] [address] Nov, [facility] [place] [address] [facility] [id number] [id number] Nov, [facility] [place] [facility] [address] [facility] [id number], [place] [address]- 1817 Nov, [facility] [place] [facility] [address] [facility] [id number], [place] [address]- 0226 Nov, [facility] [place] [facility] [address] [facility] [id number] [place] [address]- 4415 Nov, [facility] [place] [facility] [address] [facility] [id number], [place] [address]- 1106 Nov, [facility] [place] [facility] [address] [facility] [id number], [place] [address]- 9616 Nov, [facility] [place] [facility] [address] [facility] [id number], [place] [address]- 2546 Nov, [facility] [address] [facility] [id number][place] [id number] Nov, [facility] [address] [facility] [id number][place] [address] Oct, [facility] [address] [facility] [id number], [place] [address]- 6436 Oct, [facility] [place] [address] [facility] [id number][place] [id number] Oct, [facility] [place] [facility] [address], [place] [address]- 2276 Oct, [facility] [place] [facility] [address], [place] [address]- 5846 Oct, [facility] [address] [facility] [id number], [place] [id number] Sep, [facility] [place] [facility] [address], [place] [address]- 3286 Sep, [facility] [address] [place] [address] [id number] [address] Sep, [facility] [place] [facility] [address] [facility] [id number], [place] [address]- 3636 Sep, [facility] [place] [facility] [address] [facility] [id number], [place] [address]- 8861 Sep, [facility] [place] [facility] [address] [facility] [id number], [place] [address]- 9206 Sep, [facility] [place] [facility] [address] [facility] [id number], [place] [address]- 0166 Aug, [facility] [place] [address] [facility] [id number][place] [address] Aug, [facility] [address] [facility] [id number], [place] [address]- 2546 Aug, [facility] [address] [id number][place] [id number] Jul, [facility] [address] [facility] [id number], [place] [address]- 2546 Jul, [facility] [place] [address] [id number], [place] [address] Jul, [facility] [address] [facility] [id number] [place] [address]- 2546 Jul, [facility] [place] [facility] [address] [facility] [id number], [place] [address]- 2546 May, [facility] [address] [facility] [id number], [place] [address]- 2546 Apr, [facility] [address] [facility] [id number], [place] [address]- 2546 Apr, [facility] [address] [facility] [id number], [place] [address]- 2546 Mar, [facility] [address] [id number] [address] Feb, [facility] [address] [id number][place] [address] Feb, [facility] [address] [id number], [place] [address] Feb, [facility] [place] [facility] [address] [facility] [id number], [place] [address]- 2546 Feb, [facility] [place] [facility] [address] [facility] [id number], [place] [address]- 2546 January, [facility] [place] [facility] [address] [facility] [id number], [place] [address]- 2546 January, [facility] [address] [id number], [place] [address] Dec, [facility] [place] [address] [id number] [place] [address] Dec, [facility] [place] [address] [id number] [place] [address] Dec, [facility] [place] [address] [id number] [place] 6989537[place] Dec, [facility] [place] [address] [id number] [id number] Dec, [facility] [place] [address] [id number] [place] [address]85[place]39[place] Dec, [facility] [address] [facility] [id number] [place] [address]- 2546 Dec, [facility] [address] [facility] [id number] [place] [address]- 2546 Dec, [facility] [place] [address] [id number] [place] [address] Nov, [facility] [place] [address] [id number] [place] [address] Nov, [facility] [place] [address] [id number] [place] [address] Nov, [facility] [address]00565100[place], [place] [address]- 7046 Oct, [facility] [address]00565100[place], [place] [address]- 2546 Oct, [facility] [place] [facility] [address]00565100[place], [place] [address]- 1614 Sep, [facility] [place] [facility] [address]005[address], [place] [address]- 4086 Aug, [facility] [place] [facility] [address]00565100[place], [place] [address]- 2062 Aug, [facility] [place] [facility] [address]00565100[place], [place] [address]- 9186 Aug, [facility] [place] [facility] [address]00565100[place], [place] [address]- 4886 Aug, [facility] [place] [address] [facility] [id number][place] 48[address] Aug, [facility] [place] [facility] [address] [facility] [id number] [place] [address] 2546 Aug, [facility] [place] [facility] [address] [facility] [id number] [place] [address]- 2546 Jul, [facility] [place] [facility] [address] [facility] [id number] [place] [address]- 2546 Jul, [facility] [place] [facility] [address] [facility] [id number], [place] [address]- 2546 Jul, [facility] [place] [facility] [address] [facility] [id number] [place] [address]- 2546 Jul, [facility] [address] [facility] [id number][place] [id number] Jun, [facility] [place] [address] [facility] [id number] [place] [id number] Jun, [facility] [place] [facility] [address] [facility] [id number], [place] [address]- 2546 Jun, [facility] [address] [facility] [id number] [place] [address] Apr, [facility] [place] [facility] [address]005[address], [place] [address]- 2546 Apr, [facility] [place] [facility] [address] [facility] [id number], [place] [address]- 2546 Mar, [facility] [address] [facility] [id number], [place] [address]98252895 Feb, [facility] [address] [facility] [id number] [place] [address] Feb, [facility] [place] [facility] [address] [facility] [id number], [place] [address]- 2546 Feb, [facility] [address] [facility] [id number], [place] 07[place]85[place] Feb, [facility] [place] [facility] [address] [facility] [id number], [place] [address]- 4406 Feb, [facility] [place] [facility] [address] [facility] [id number], [place] [address]- 4539 Feb, [facility] [place] [facility] [address] [facility] [id number], [place] [address]- 2546 Feb, [facility] [place] [facility] [address]005[address]100[place], [place] [address]- 2546 Feb, [facility] [address] [id number], [place] [address] January, [facility] [address] [id number], [place] 122110049 Dec, [facility] [place] [facility] [address] [place] [address]379- 2546 Dec, [facility] [place] [facility] [address]00565100[place], [place] [address]- 2546 Dec, [facility] [place] [address] [id number], [place] [address] Dec, [facility] [address]00565100[place], [place] [address]- 2546 Dec, [facility] [address] [id number][place] 16[place] Dec, [facility] [address] [id number], [place] 349223362 Nov, [facility] [address] [id number], [place] 820[address]65[address] Nov, [facility] [address] [id number], [place] 855[place]8096 Nov, [facility] [address] [id number], [place] [address] Nov, [facility] [place] [facility] [address]005[address], [place] [address]- 2546 Oct, [facility] [place] [address] [id number], [place] [id number] Oct, [facility] [address] [id number], [place] [id number] Oct, [facility] [place] [address] [id number] [place] 07[place] Oct, [facility] [place] [address] [id number] [place] [address] Oct, [facility] [address] [id number] [place] [address]46[address] Sep, [facility] [place] [address] [facility] [id number] [place] [address] Sep, [facility] [place] [facility] [address] [facility] [id number], [place] [address]- 6266 Sep, [facility] [place] [facility] [address] [facility] [id number] [place] [address], [place] [address]- 4126 Sep, [facility] [place] [facility] [address] [facility] [id number], [place] [address]- 8476 Sep, [facility] [place] [facility] [address]00565100[place], [place] [address]- 0920 Sep, [facility] [place] [facility] [address] [id number], [place] [address]- 4754 Aug, [facility] [place] [facility] [address] [place] [address]- 5716 Aug, [facility] [place] [facility] [address] [id number], [place] [address]- 1938 Aug, [facility] [place] [facility] [address] [place] [address]- 6266 Aug, [facility] [place] [facility] [address] [facility] [id number], [place] [address]- 1868 Aug, [facility] [place] [facility] [address] [facility] [id number] [place] [address]- 3974 Aug, [facility] [place] [facility] [address] [facility] [id number], [place] [address]- 2630 Aug, [facility] [place] [facility] [address] [id number], [place] [address]- 9504 Aug, [facility] [place] [facility] [address] [id number] [place] [address] 27 Jun, 2011 [facility] [place] [facility] [address] [id number] [place] [address] 27 Jun, 2011 [facility] [place] [facility] [address] [id number] [place] [address] 19 Jun, 2011 [facility] [place] [facility] [address] [id number] [place] [address] 19 Jun, 2011 [facility] [place] [facility] [address] [id number] [place] [address] 14 Jun, 2011 [facility] [place] [facility] [address] [id number] [place] [address] 13 Jun, 2011 [facility] [place] [facility] [address] [id number] [place] [address] Jun, [facility] [place] [facility] [address] [id number] [place] [address] Jun, [facility] [place] [facility] [address] [id number] [place] [address] Jun, [facility] [place] [facility] [address] [id number] [place] [address] 14 May, 2011 [facility] [place] [facility] [address] [id number] [place] [address] Apr, [facility] [place] [facility] [address] [id number] [place] [address] 16 Feb, 2011 [facility] [place] [facility] [address] [id number] [place] [address] Dec, [facility] [place] [facility] [address] [id number] [place] [address] Aug, [facility] [place] [facility] [address] [id number] [place] [address] Aug, [facility] [place] [facility] [address] [id number], [place] [address] Aug, [facility] [address] [facility] [id number], [place] [address] Aug, [facility] [address] [facility] [id number], [place] [address] Jul, [facility] [address] [facility] [id number], [place] [address] Jun, [facility] [address] [facility] [id number], [place] [address] Jun, IMMUNIZATIONS No Known Immunizations SOCIAL HISTORY Never Assessed REASON FOR VISIT f/u PLAN OF CARE Activity Details Follow Up Next available Reason: VITAL SIGNS MEDICATIONS Unknown Medications RESULTS No Results PROCEDURES Procedure Date Ordered Result Body Site Psychotherapy, patient &/family, 45 minutes, established patient Nov 03, 2017 INSTRUCTIONS MEDICATIONS ADMINISTERED No Known [...] Coronary atherosclerosis of unspecified type of vessel, [place] or graft Medical History Coronary atherosclerosis of unspecified type of vessel, [place] or graft Surgical History section x4 Surgical History CABG x3 Surgical History Left arm-Plate and screws placed Hospitalization History Surgery(s)/Childbirth(s) only
--- OUTSIDE RECORDS SUMMARY | 2019-02-02 14:05 | XMS REPORT ---
Author Author ЕКАТЕРИНА MTZ [facility] Address [address] [place] [address] Care Team Providers Care Aboriginal Liaison Officer Name Role Phone ЕКАТЕРИНА MTZ Unavailable PROBLEMS Type Condition ICD9-CM Code AAH57-LG Code Onset Dates Condition Status SNOMED Code Problem Coronary artery disease involving coronary bypass graft of chickahominy indians-e[place] division heart without angina pectoris I25.810 Active 084868969 Problem Chronic obstructive pulmonary disease with acute exacerbation J44.1 Active 660719521 Problem Mixed hyperlipidemia E78.2 Active 532171067 Problem Bipolar disorder, in partial remission, most recent episode depressed F31.75 Active 56241867 Problem Claudication I73.9 Active 816706603 Problem MESERET (generalized anxiety disorder) F41.1 Active 12436853 Problem Panic disorder F41.0 Active 932276262 Problem Coronary artery disease involving chickahominy indians-eastern division coronary artery of chickahominy indians-eastern division heart without angina pectoris I25.10 Active 5018901382511 Problem Mood disorder F39 Active 22193302 Problem Obesity (BMI 30-39.9) E66.9 Active 519560335 Problem Bipolar 1 disorder F31.9 Active 812143545 Problem PTSD (post-traumatic stress disorder) F43.10 Active 16938172 Problem Sleep apnea in adult G47.30 Active 60864791 Problem Essential hypertension I10 Active 53541226 Problem COPD mixed type J44.9 Active 31297275 ALLERGIES No Information ENCOUNTERS Encounter Location Date Diagnosis [facility] [address] [id number] [id number] Feb, [facility] [address] [facility] [id number] [address] [address] January, [facility] [address] [facility] [id number], [place] [address] January, [facility] [address] [facility] [id number] [place] [address] 23019- 3462 January, Bipolar 1 disorder, depressed F31.9 ; PTSD (post-traumatic stress disorder) F43.10 and Panic attacks F41.0 [facility] [address] [place] [address] 19717- 4891 Dec, BMI 45.0-49.9, adult Z68.42 ; Bipolar disorder, in partial remission, most recent episode depressed F31.75 ; MESERET (generalized anxiety disorder) F41.1 and Panic disorder F41.0 [facility] [address] [place] [address] 38409- 8774 Dec, Bipolar 1 disorder, depressed F31.9 ; PTSD (post-traumatic stress disorder) F43.10 and Panic attacks F41.0 [facility] [address]00565100[place] [address] Nov, Bipolar disorder, in partial remission, most recent episode depressed F31.75 ; MESERET (generalized anxiety disorder) F41.1 and Panic disorder F41.0 [facility] [address]00565100[place], [place] [address] Nov, [facility] [id number] [place] [address] 22939- 0683 Nov, [facility] [address] [place] [address] 19552- 8402 Oct, BMI 45.0-49.9, adult Z68.42 ; Bipolar disorder, in partial remission, most recent episode depressed F31.75 ; MESERET (generalized anxiety disorder) F41.1 and Panic disorder F41.0 [place] [id number] [facility] [address] [id number] [address] Oct, BMI 45.0-49.9, adult Z68.42 ; Coronary artery disease involving chickahominy indians-eastern division coronary artery of chickahominy indians-eastern division heart without angina pectoris I25.10 ; Hx of CABG Z95.1 ; Dyspnea on exertion R06.09 ; Essential hypertension I10 ; Mixed hyperlipidemia E78.2 ; Claudication I73.9 and Tobacco use Z72.0 [facility] [id number] [id number] 15 Oct, 2017 BMI 45.0-49.9, adult Z68.42 ; Bipolar 1 disorder, depressed F31.9 and Abscess L02.91 [facility] [address]00565100[place], [place] [address] 14 Oct, 2017 Bipolar 1 disorder, depressed F31.9 ; PTSD (post-traumatic stress disorder) F43.10 and Panic attacks F41.0 [place] [address] [place] [address] 73900- 3264 Sep, BMI 40.0-44.9, adult Z68.41 ; Mood disorder F39 ; MESERET ( generalized anxiety disorder) F41.1 and Panic disorder F41.0 [place] [id number] [place] [address] 54713- 6441 Sep, BMI 40.0-44.9, adult Z68.41 [place] [id number] [place] [address] 94248- 9420 Sep, Bipolar 1 disorder, depressed F31.9 ; PTSD (post-traumatic stress disorder) F43.10 and Panic attacks F41.0 [place] [address] [place] [address] 98648- 6625 Aug, BMI 40.0-44.9, adult Z68.41 ; Mood disorder F39 ; MESERET ( generalized anxiety disorder) F41.1 and Panic disorder F41.0 [place] [address]00565100[place] [address] 49[address] Aug, Bipolar 1 disorder, depressed F31.9 ; PTSD (post-traumatic stress disorder) F43.10 and Panic attacks F41.0 [facility] [id number][place] [id number] Aug, [facility] [id number][place] [id number] Aug, COPD mixed type J44.9 [place] [address] [id number], [place] [address] Aug, [facility] [address] [place] [address] 26766- 7308 Jul, PTSD (post-traumatic stress disorder) F43.10 ; Panic disorder F41.0 ; MESERET (generalized anxiety disorder) F41.1 ; Mood disorder F39 and BMI 40.0-44.9, adult Z68.41 [facility] [address]00565100[place], [place] [address] Jul, Bipolar 1 disorder, depressed F31.9 ; PTSD (post-traumatic stress disorder) F43.10 and Panic attacks F41.0 [address] [place] [address] [id number] Jul, Bipolar 1 disorder, depressed F31.9 [address] [place] [address] [id number] Jul, Anxiety F41.9 ; COPD mixed type J44.9 ; Essential hypertension I10 ; Bipolar 1 disorder F31.9 ; High risk medication use Z79.899 ; BMI 40.0-44.9, adult Z68.41 and Coronary artery disease involving coronary bypass graft of chickahominy indians-eastern division heart without angina pectoris I25.[address] [place] [address] [id number] Jul, Chronic obstructive pulmonary disease with acute exacerbation J44.1 and Acute nasopharyngitis J00 [address] [place] [address] [id number] Jul, Anxiety F41.9 ; Mixed hyperlipidemia E78.2 and Bipolar 1 disorder F31.9 [facility] [employer] [address] [id number] [place] [address] Jun Bipolar 1 disorder F31.9 [facility] [address] [id number] [place] [address] [address] [place] [id number] [address] Jun, Anxiety F41.9 ; Elevated blood sugar R73.9 ; Mixed hyperlipidemia E78.2 ; COPD mixed type J44.9 ; Essential hypertension I10 ; Bipolar 1 disorder F31.9 ; Coronary artery disease involving coronary bypass graft of chickahominy indians-eastern division heart without angina pectoris I25.810 ; High risk medication use Z79.899 ; Controlled substance agreement signed Z79.899 ; Elevated fasting glucose R73.01 ; Encounter for immunization Z23 and BMI 40.0-44.9, adult Z68.41 [facility] [id number] [place] [address] [id number] Jun, Elevated blood sugar R73.9 [facility] [id number] [place] [address] [id number] Jun, [facility] [id number] [place] [address] [phone] Jun, Bipolar 1 disorder F31.9 ; Obesity (BMI 30-39.9) E66.9 ; Coronary artery disease involving coronary bypass graft of chickahominy indians-eastern division heart without angina pectoris I25.810 and Essential hypertension I10 [facility] [id number] [place] [address] [id number] Jun, Coronary artery disease involving coronary bypass graft of chickahominy indians-eastern division heart without angina pectoris I25.810 ; Bipolar 1 disorder F31.9 ; Anxiety F41.9 ; Essential hypertension I10 ; COPD mixed type J44.9 and Mixed hyperlipidemia E78.2 [facility] [id number] [place] [address] [id number] May, Severe single current episode of major depressive disorder, 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.2 ; Bipolar 1 disorder F31.9 ; Anxiety F41.9 ; PTSD (post -traumatic stress disorder) F43.10 ; Coronary artery disease involving coronary bypass graft of chickahominy indians-eastern division heart without angina pectoris I25.810 ; Sleep apnea in adult G47.30 ; Essential hypertension I10 ; High risk medication use Z79.899 ; Obesity (BMI 30-39.9) E66.9 ; Encounter for therapeutic drug level monitoring Z51.81 and COPD mixed type J44.9 [facility] [id number] [place] [address] [id number] May, Severe single current episode of major depressive disorder, 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.2 ; Bipolar 1 disorder F31.9 ; Anxiety F41.9 ; PTSD (post -traumatic stress disorder) F43.10 ; Mixed hyperlipidemia E78.2 ; Coronary artery disease involving coronary bypass graft of chickahominy indians-eastern division heart without angina pectoris I25.810 ; Sleep apnea in adult G47.30 ; Essential hypertension I10 ; High risk medication use Z79.899 ; Controlled substance agreement signed Z79.899 ; Obesity (BMI 30-39.9) E66.9 ; Tobacco abuse Z72.0 ; Tobacco abuse counseling Z71.6 and COPD mixed type J44.9 [facility] [id number] [place] [address] [id number] May, [facility] [address] [id number]- 1431 Dec, [facility] [id number] [place] [address] 41119- 9106 Dec, [facility] [id number] [place] [address] 61097- 8336 May, [facility] [id number] [place] [address] 50180- 6358 May, [facility] [id number] [place] [address] [id number] Dec, [facility] [id number] [place] [address] 06687- 7830 Dec, [facility] [id number] [place] [address] [id number] Dec, [facility] [id number] [place] [address] [id number]- 0719 Dec, [facility] [id number] [place] [address] 227077- 0058 Dec, [facility] [id number] [place] [address] [id number]- 8319 Dec, [facility] [id number] [place] [address] [id number]- 4699 Nov, [facility] [address] [id number] [place] [id number] 17 Nov, 2013 [facility] [address] [id number] [place] [id number] Nov, [facility] [address] [id number] [place] [id number] Nov, [facility] [place] [facility] [address] [facility] [id number] [place] [address] 2546 Nov, [facility] [place] [facility] [address] [facility] [id number] [place] [address] 2546 Nov, [facility] [place] [facility] [address] [facility] [id number] [place] [address]- 6346 Nov, [facility] [place] [facility] [address] [facility] [id number], [place] [address]- 0966 Nov, [facility] [place] [facility] [address] [id number], [place] [address]- 8327 Nov, [facility] [place] [facility] [address] [facility] [id number][place] [address]- 6156 Nov, [facility] [address] [facility] [id number] [place] [id number] Nov, [facility] [address] [facility] [id number] [id number] Oct, [facility] [place] [facility] [address] [id number], [place] [address]- 2546 Oct, [facility] [address] [facility] [id number][place] [id number] Oct, [facility] [place] [facility] [address] [facility] [id number][place] [address]- 5046 Oct, [facility] [place] [facility] [address] [facility] [id number] [address]- 2546 Oct, [facility] [address] [facility] [id number][place] [id number] Sep, [facility] [place] [facility] [address] [id number], [place] [address]- 6192 Sep, [facility] [address] [id number] [place] [id number] Sep, [facility] [place] [facility] [address] [facility] [id number] [place] [address]- 2546 Sep, [facility] [place] [facility] [address] [facility] [id number] [place] [address]- 2546 Sep, [facility] [place] [facility] [address] [facility] [id number] [place] [address]- 2546 Sep, [facility] [place] [facility] [address] [facility] [id number] [place] [address]- 2546 Aug, [facility] [address] [id number] [place] [id number] Aug, [facility] [address] [place] [address]- 2546 Aug, [facility] [address] [id number][place] [id number] Jul, [facility] [address] [facility] [id number][place] [address]- 2546 Jul, [facility] [address] [id number][place] [address] Jul, [facility] [address] [facility] [id number], [place] [address]- 2546 Jul, [facility] [place] [facility] [address] [id number], [place] [address]- 2546 May, [facility] [place] [facility] [address] [facility] [id number], [place] [address]- 2546 Apr, [facility] [place] [facility] [address] [facility] [id number], [place] [address]- 2546 Apr, [facility] [place] [facility] [address] [facility] [id number], [place] [address]- 2546 Mar, [facility] [address] [facility] [id number][place] [id number] Feb, [facility] [address] [id number] [place] [id number] Feb, [facility] [address] [id number] [place] [address] Feb, [facility] [address] [facility] [id number], [place] [address]- 9543 Feb, [facility] [address] [facility] [id number], [place] 31925521- 5784 January, [facility] [address] [facility] [id number], [place] 09770993- 1296 January, [facility] [address] [id number] [place] [address] Dec, [facility] [address] [id number] [place] [id number] Dec, [facility] [address] [id number] [place] [id number] Dec, [facility] [address] [id number] [place] [id number] Dec, [facility] [address] [id number] [place] [id number] Dec, [facility] [address] [id number] [place] [id number] Dec, [facility] [address]00565100[place], [place] [address]- 8217 Dec, [facility] [address] [facility] [id number][place] [address]- 1808 Dec, [facility] [address] [id number], [place] [id number] Nov, [facility] [address] [id number] [place] [id number] Nov, [facility] [address] [facility] [id number][place] [id number] Nov, [facility] [address]00565100[place] [address]- 5284 Oct, [facility] [address] [id number], [place] [address]- 2546 Oct, [facility] [address] [id number] [place] [address]- 2546 Sep, [facility] [place] [facility] [address] [facility] [id number], [place] [address]- 9446 Aug, [facility] [place] [facility] [address] [facility] [id number] [place] [address]- 2546 Aug, [facility] [place] [facility] [address] [facility] [id number], [place] [address]- 2546 Aug, [facility] [place] [facility] [address] [facility] [id number], [place] [address]- 8396 Aug, [facility] [address] [facility] [id number][place] [id number] Aug, [facility] [place] [facility] [address]00565100[place], [place] [address]- 6596 Aug, [facility] [place] [facility] [address] [facility] [id number], [place] [address]- 4256 Jul, [facility] [place] [facility] [address] [facility] [id number], [place] [address]- 0336 Jul, [facility] [place] [facility] [address] [facility] [id number], [place] [address]- 2546 Jul, [facility] [address] [facility] [id number] [address]- 2546 Jul, [facility] [address] [facility] [id number][place] [id number] Jun, [facility] [address] [facility] [id number][place] [id number] Jun, [facility] [place] [facility] [address] [facility] [id number], [place] [address]- 2546 Jun, [facility] [address] [facility] [id number], [place] 037950307 Apr, [facility] [place] [facility] [address] [facility] [id number][place] [address]- 2546 Apr, [facility] [place] [facility] [address] [id number], [place] [address]- 5456 Mar, [facility] [address] [id number] [place] [id number] Feb, [facility] [address] [id number] [place] [id number] Feb, [facility] [place] [facility] [address] [facility] [id number], [place] [address]- 3256 Feb, [facility] [address] [id number] [place] [id number] Feb, [facility] [place] [facility] [address] [facility] [id number], [place] [address]- 3946 Feb, [facility] [facility] [address] [facility] [id number][place] [address]- 8526 Feb, [facility] [facility] [address] [id number], [place] [address]- 2876 Feb, [facility] [facility] [address] [facility] [id number], [place] [address]- 2786 Feb, [facility] [address] [id number], [place] [id number] January, [facility] [address] [id number], [place] [id number] Dec, [facility] [facility] [address] [facility] [id number], [place] [address]- 0646 Dec, [facility] [address] [facility] [id number], [place] [address]- 2546 Dec, [facility] [address] [id number], [place] [id number] Dec, [facility] [place] [facility] [address] [facility] [id number], [place] [address]- 2546 Dec, [facility] [address] [id number] [place] [id number] Dec, [facility] [address] [id number] [place] [id number] Nov, [facility] [address] [id number] [place] [id number] Nov, [facility] [address] [id number] [place] [id number] Nov, [facility] [address] [id number] [place] [id number] Nov, [facility] [address] [facility] [id number], [place] [address]- 2546 Oct, [facility] [address] [id number] [place] [id number] Oct, [facility] [address] [id number] [place] [id number] Oct, [facility] [address] [id number] [place] [id number] Oct, [facility] [address] [id number] [place] 8489718[address] Oct, [facility] [address] [id number] [place] [id number] Sep, [facility] [address] [id number] [place] [id number] Sep, [facility] [place] [facility] [id number] [address] Sep, [facility] [place] [facility] [id number], [place] [address] Sep, [facility] [place] [facility] [id number] [address] Sep, [facility] [place] [facility] [address] [facility] [id number] [address] Sep, [facility] [place] [facility] [id number], [place] [address] Aug, [facility] [place] [facility] [id number], [place] [address] Aug, [facility] [place] [facility] [address] [id number] [place] [address] Aug, [facility] [place] [facility] [address] [id number] [place] [address] Aug, [facility] [place] [facility] [address] [id number] [place] [address] Aug, [facility] [place] [facility] [address] [id number] [place] [address] Aug, [facility] [place] [facility] [address] [id number] [place] [address] Aug, [facility] [place] [facility] [address] [id number] [place] [address] Aug, [facility] [place] [facility] [address] [id number] [place] [address] Jun, [facility] [place] [facility] [address] [id number] [place] [address] 27 Jun, 2011 [facility] [place] [facility] [address] [id number] [place] [address] Jun, [facility] [place] [facility] [address] [id number] [place] [address] 19 Jun, 2011 [facility] [place] [facility] [address] [id number] [place] [address] 14 Jun, 2011 [facility] [place] [facility] [address] [id number] [place] [address] 13 Jun, 2011 [facility] [place] [facility] [address] [id number], [place] [address] 12 Jun, 2011 [facility] [place] [facility] [address] [id number] [place] [address] 12 Jun, 2011 [facility] [place] [facility] [address] [id number], [place] [address] 12 Jun, 2011 [facility] [place] [facility] [address] [id number], [place] [address] 14 May, 2011 [facility] [place] [facility] [id number], [place] [address] Apr, [facility] [id number], [place] [address] 16 Feb, 2011 [facility] [id number], [place] [address] Dec, [facility] [id number], [place] [address] Aug, [facility] [id number], [place] [address] Aug, [facility] [id number] [place] [address] Aug, [facility] [id number] [place] [address] Aug, [facility] [id number] [address] Jul, [facility] [id number], [place] [address] Jun, [facility] [address] [id number], [place] [id number], IMMUNIZATIONS No Known Immunizations SOCIAL HISTORY Never Assessed REASON FOR VISIT Repository request PLAN OF CARE VITAL SIGNS MEDICATIONS Unknown [...] Coronary atherosclerosis of unspecified type of vessel, [place] or graft Medical History Coronary atherosclerosis of unspecified type of vessel, [place] or graft Surgical History section x4 Surgical History CABG x3 Surgical History Left arm-Plate and screws placed Hospitalization History Surgery(s)/Childbirth(s) only
--- OUTSIDE RECORDS SUMMARY | 2019-02-02 14:05 | XMS REPORT ---
Author Author ЕКАТЕРИНА MTZ [facility] Address [address] [place] [address] Care Team Providers Care Director Of Planning Name Role Phone ЕКАТЕРИНА MTZ Unavailable PROBLEMS Type Condition ICD9-CM Code LCV77-PW Code Onset Dates Condition Status SNOMED Code Problem Coronary artery disease involving coronary bypass graft of [place] heart without angina pectoris I25.810 Active 853884357 Problem Chronic obstructive pulmonary disease with acute exacerbation J44.1 Active 631140988 Problem Mixed hyperlipidemia E78.2 Active 545943664 Problem Bipolar disorder, in partial remission, most recent episode depressed F31.75 Active 83563584 Problem Claudication I73.9 Active 748431449 Problem MESERET (generalized anxiety disorder) F41.1 Active 73402475 Problem Panic disorder F41.0 Active 596010990 Problem Coronary artery disease involving [place] coronary artery of [place] heart without angina pectoris I25.10 Active 5015202612144 Problem Mood disorder F39 Active 14831081 Problem Obesity (BMI 30-39.9) E66.9 Active 822179956 Problem Bipolar 1 disorder F31.9 Active 015038460 Problem PTSD (post-traumatic stress disorder) F43.10 Active 41571397 Problem Sleep apnea in adult G47.30 Active 99180218 Problem Essential hypertension I10 Active 30180505 Problem COPD mixed type J44.9 Active 57659940 ALLERGIES Substance Reaction Event Type Date Status Penicillin V Potassium Swelling/hives Drug Allergy May, Active Abilify dizziness Drug Allergy May, Active ENCOUNTERS Encounter Location Date Diagnosis [facility] [address] [id number] [place] [id number] Feb, [facility] [address] [facility] [id number] [place] [address] January, [facility] [address] [facility] [id number], [place] [address] January, [facility] [address], [place] [address] January, [facility] [address] [place] [address]- 8385 Dec, BMI 45.0-49.9, adult Z68.42 ; Bipolar disorder, in partial remission, most recent episode depressed F31.75 ; MESERET (generalized anxiety disorder) F41.1 and Panic disorder F41.0 [facility] [address], [place] [address] Dec, Bipolar 1 disorder, depressed F31.9 ; PTSD (post-traumatic stress disorder) F43.10 and Panic attacks F41.0 [facility] [address], [place] [address] Nov, Bipolar disorder, in partial remission, most recent episode depressed F31.75 ; MESERET (generalized anxiety disorder) F41.1 and Panic disorder F41.0 [facility] [address], [place] [address] Nov, [facility] [address] [place] [address]- [address] Nov, [facility] [address], [place] [address] Oct, BMI 45.0-49.9, adult Z68.42 ; Bipolar disorder, in partial remission, most recent episode depressed F31.75 ; MESERET (generalized anxiety disorder) F41.1 and Panic disorder F41.[address] [id number] [id number] Oct, BMI 45.0-49.9, adult Z68.42 ; Coronary artery disease involving [place] coronary artery of [place] heart without angina pectoris I25.10 ; Hx of CABG Z95.1 ; Dyspnea on exertion R06.09 ; Essential hypertension I10 ; Mixed hyperlipidemia E78.2 ; Claudication I73.9 and Tobacco use Z72.0 [facility] [id number] [place] [id number] 15 Oct, 2017 BMI 45.0-49.9, adult Z68.42 ; Bipolar 1 disorder, depressed F31.9 and Abscess L02.91 [place] [address], [place] [address] 14 Oct, 2017 Bipolar 1 disorder, depressed F31.9 ; PTSD (post-traumatic stress disorder) F43.10 and Panic attacks F41.0 [place] [address] [id number] [place] [address]- [address] Sep, BMI 40.0-44.9, adult Z68.41 ; Mood disorder F39 ; MESERET ( generalized anxiety disorder) F41.1 and Panic disorder F41.0 [place] [id number] [place] [address]- 1019 Sep, BMI 40.0-44.9, adult Z68.41 [place] [id number] [place] [address]1530- 6200 Sep, Bipolar 1 disorder, depressed F31.9 ; PTSD (post-traumatic stress disorder) F43.10 and Panic attacks F41.0 [place] [address] [place] [address]- 2510 Aug, BMI 40.0-44.9, adult Z68.41 ; Mood disorder F39 ; MESERET ( generalized anxiety disorder) F41.1 and Panic disorder F41.0 [place] [address], [place] [address] Aug, Bipolar 1 disorder, depressed F31.9 ; PTSD (post-traumatic stress disorder) F43.10 and Panic attacks F41.0 [facility] [id number] [place] [id number] Aug, [facility] [id number] [place] [id number] Aug, COPD mixed type J44.9 [place] [address], [place] [address] 80[address] Aug, [place] [address] [place] [address] 88910- 9602 Jul, PTSD (post-traumatic stress disorder) F43.10 ; Panic disorder F41.0 ; MESERET (generalized anxiety disorder) F41.1 ; Mood disorder F39 and BMI 40.0-44.9, adult Z68.41 [place] [address], [place] [address] Jul, Bipolar 1 disorder, depressed F31.9 ; PTSD (post-traumatic stress disorder) F43.10 and Panic attacks F41.0 [address] [place] [address] [id number] Jul, Bipolar 1 disorder, depressed F31.9 [address] [place] [address] [id number] Jul, Anxiety F41.9 ; COPD mixed type J44.9 ; Essential hypertension I10 ; Bipolar 1 disorder F31.9 ; High risk medication use Z79.899 ; BMI 40.0-44.9, adult Z68.41 and Coronary artery disease involving coronary bypass graft of [place] heart without angina pectoris I25.[address] [place] [address] [id number] Jul, Chronic obstructive pulmonary disease with acute exacerbation J44.1 and Acute nasopharyngitis J00 [address] [place] [address] [id number] Jul, Anxiety F41.9 ; Mixed hyperlipidemia E78.2 and Bipolar 1 disorder F31.9 [facility] [employer] [address] [id number] [place] [address] Jun Bipolar 1 disorder F31.9 [facility] [employer] [address] [id number] [place] [address] Jun [place] [id number] [id number] Jun, Anxiety F41.9 ; Elevated blood sugar R73.9 ; Mixed hyperlipidemia E78.2 ; COPD mixed type J44.9 ; Essential hypertension I10 ; Bipolar 1 disorder F31.9 ; Coronary artery disease involving coronary bypass graft of [place] heart without angina pectoris I25.810 ; High risk medication use Z79.899 ; Controlled substance agreement signed Z79.899 ; Elevated fasting glucose R73.01 ; Encounter for immunization Z23 and BMI 40.0-44.9, adult Z68.41 [facility] [id number] [place] [address] [id number] Jun, Elevated blood sugar R73.9 [facility] [address] [id number] [place] [address] [id number] Jun, [facility] [id number] [place] [address] [phone] Jun, Bipolar 1 disorder F31.9 ; Obesity (BMI 30-39.9) E66.9 ; Coronary artery disease involving coronary bypass graft of [place] heart without angina pectoris I25.810 and Essential hypertension I10 [facility] [id number] [place] [address] [id number] Jun, Coronary artery disease involving coronary bypass graft of [place] heart without angina pectoris I25.810 ; Bipolar 1 disorder F31.9 ; Anxiety F41.9 ; Essential hypertension I10 ; COPD mixed type J44.9 and Mixed hyperlipidemia E78.2 [facility] [id number] [place] [address] [id number] May, Severe single current episode of major depressive disorder, 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.2 ; Bipolar 1 disorder F31.9 ; Anxiety F41.9 ; PTSD (post -traumatic stress disorder) F43.10 ; Coronary artery disease involving coronary bypass graft of [place] heart without angina pectoris I25.810 ; Sleep apnea in adult G47.30 ; Essential hypertension I10 ; High risk medication use Z79.899 ; Obesity (BMI 30-39.9) E66.9 ; Encounter for therapeutic drug level monitoring Z51.81 and COPD mixed type J44.9 [facility] [id number] [place] [address] [phone] May, Severe single current episode of major depressive disorder, 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.2 ; Bipolar 1 disorder F31.9 ; Anxiety F41.9 ; PTSD (post -traumatic stress disorder) F43.10 ; Mixed hyperlipidemia E78.2 ; Coronary artery disease involving coronary bypass graft of [place] heart without angina pectoris I25.810 ; Sleep apnea in adult G47.30 ; Essential hypertension I10 ; High risk medication use Z79.899 ; Controlled substance agreement signed Z79.899 ; Obesity (BMI 30-39.9) E66.9 ; Tobacco abuse Z72.0 ; Tobacco abuse counseling Z71.6 and COPD mixed type J44.9 [facility] [id number] [place] [address] [phone] May, [facility] [id number] [place] [address]- 4989 Dec, [facility] [id number] [place] [address] 33942- 1485 Dec, [facility] [id number] [place] [address] [id number]- 7405 May, [facility] [id number] [place] [address] 44868- 7372 May, [facility] [id number] [place] [address] [phone] Dec, [facility] [address] [address] Dec, [facility] [id number] [place] [address] [phone] Dec, [facility] [id number] [place] [address] 14322600- 6186 Dec, [facility] [id number] [place] [address] 65000- 1216 Dec, [facility] [id number] [place] [address] 031100- 8181 Dec, [facility] [address], [place] [address]- 0086 Nov, [facility] [address] [id number] [id number] 17 Nov, 2013 [facility] [address] [id number] [place] [id number] Nov, [facility] [address] [id number] [place] [id number] Nov, [facility] [place] [facility] [address] [facility] [id number], [place] [address] Nov, [facility] [place] [facility] [address] [facility] [id number], [place] [address]- 1876 Nov, [facility] [place] [facility] [address] [facility] [id number] [place] [address]- 9505 Nov, [facility] [place] [facility] [address] [facility] [id number], [place] [address]- 4133 Nov, [facility] [place] [facility] [address] [facility] [id number], [place] [address]- 9877 Nov, [facility] [place] [facility] [address] [facility] [id number], [place] [address]- 4046 Nov, [facility] [address] [facility] [id number] [place] [id number] Nov, [facility] [address] [facility] [id number] EDGE[place] [id number] Oct, [facility] [place] [facility] [address] [facility] [id number], [place] [address]- 4056 Oct, [facility] [address] [facility] [id number] EDGE[place] [id number] Oct, [facility] [place] [facility] [address] [facility] [id number], [place] [address]- 4338 Oct, [facility] [place] [facility] [address] [facility] [id number], [place] [address]- 2426 Oct, [facility] [address] [facility] [id number] EDGE[place] [id number] Sep, [facility] [place] [facility] [address] [facility] [id number], [place] [address]- 7211 Sep, [facility] [address] [facility] [id number] [place] [id number] Sep, [facility] [place] [facility] [address] [facility] [id number] [place] [address] 2546 Sep, [facility] [place] [facility] [address] [facility] [id number] [place] [address] 2546 Sep, [facility] [place] [facility] [address] [facility] [id number] [place] [address] 2546 Sep, [facility] [place] [facility] [address] [facility] [id number] [place] [address]- 5296 Aug, [facility] [address] [id number] [place] [id number] Aug, [facility] [address] [id number] [address]- 3386 Aug, [facility] [address] [id number] [place] [id number] Jul, [facility] [address] [facility] [id number], [place] [address]- 2466 Jul, [facility] [address] [id number] [place] 115[address] Jul, [facility] [place] [facility] [address] [id number], [place] [address] 2546 Jul, [facility] [place] [facility] [address], [place] [address]- 2546 May, [facility] [place] [facility] [address] [facility] [id number], [place] [address]- 2546 Apr, [facility] [place] [facility] [address] [facility] [id number], [place] [address] 2546 Apr, [facility] [place] [facility] [address] [facility] [id number], [place] [address]- 2546 Mar, [facility] [address] [facility] [id number] [place] [id number] Feb, [facility] [address] [id number] [place] [id number] Feb, [facility] [address] [id number] [place] [id number] Feb, [facility] [address] [facility] [id number], [place] [address]- 2600 Feb, [facility] [address] [facility] [id number], [place] [address]- 7453 January, [facility] [place] [facility] [address] [facility] [id number], [place] [address]- 9686 January, [facility] [address] [id number] [place] [id number] Dec, [facility] [address] [id number] [place] [id number] Dec, [facility] [address] [id number] [place] [id number] Dec, [facility] [address] [id number] [place] [id number] Dec, [facility] [address] [id number] [place] [id number] Dec, [facility] [address] [id number] [place] [id number] Dec, [facility] [address], [place] [address]- 0592 Dec, [facility] [address] [facility] [id number], [place] [address]- 254 Dec, [facility] [address] [id number] [place] [id number] Nov, [facility] [address] [id number] [place] 07547[address] Nov, [facility] [address] [id number] [place] [id number] Nov, [facility] [address]00565100[place], [place] [address]- 7685 Oct, [facility] [address] [id number], [place] [address]- 4376 Oct, [facility] [address] [id number], [place] [address]- 2375 Sep, [facility] [place] [facility] [address] [facility] [id number], [place] [address]- 4276 Aug, [facility] [place] [facility] [address] [facility] [id number], [place] [address]- 2396 Aug, [facility] [place] [facility] [address] [facility] [id number], [place] [address]- 4180 Aug, [facility] [place] [facility] [address] [id number], [place] [address]- 5271 Aug, [facility] [address] [facility] [id number] EDGE[place] [address]48[address] Aug, [facility] [place] [facility] [address]005[address]100[place], [place] [address]- 1436 Aug, [facility] [place] [facility] [address] [facility] [id number], [place] [address]- 4795 Jul, [facility] [place] [facility] [address] [facility] [id number], [place] [address]- 3176 Jul, [facility] [place] [facility] [address] [facility] [id number], [place] [address]- 8646 Jul, [facility] [place] [facility] [address] [facility] [id number], [place] [address] 2546 Jul, [facility] [address] [facility] [id number] EDGE[place] 7[address]206841 Jun, [facility] [address] [id number] [place] [id number] Jun, [facility] [place] [facility] [address] [id number], [place] [address]- 2546 Jun, [facility] [address] [facility] [id number] [place] [id number] Apr, [facility] [place] [facility] [address] [facility] [id number], [place] [address]- 3601 Apr, [facility] [place] [facility] [address] [id number], [place] [address]- 2546 Mar, [facility] [address] [id number] [place] [id number] Feb, [facility] [address] [id number] [place] [id number] Feb, [facility] [place] [facility] [address] [id number] [place] [address]- 2546 Feb, [facility] [address] [id number] [place] [id number] Feb, [facility] [place] [facility] [address] [facility] [id number] [place] [address]- 2546 Feb, [facility] [place] [facility] [address] [facility] [id number], [place] [address]- 2546 Feb, [facility] [place] [facility] [address] [facility] [id number], [place] [address]- 2546 Feb, [facility] [place] [facility] [address] [facility] [id number], [place] [address]- 1096 Feb, [facility] [address] [id number] [place] [id number] January, [facility] [address] [id number] EDGE[place] 655929987 Dec, [facility] [place] [facility] [address] [facility] [id number], [place] [address]- 2546 Dec, [facility] [place] [facility] [address] [facility] [id number], [place] [address]- 2546 Dec, [facility] [address] [id number] EDGE[place] 608875692 Dec, [facility] [place] [facility] [address] [facility] [id number], [place] [address]- 2546 Dec, [facility] [address] [id number] [place] [id number] Dec, [facility] [address] [id number] EDGE[place] [id number] Nov, [facility] [address] [id number] [id number] Nov, [facility] [address] [id number] [place] [id number] Nov, [facility] [address] [id number] [place] 934278949 Nov, [facility] [address] [facility] [id number], [place] [address]- 8406 Oct, [facility] [address] [id number] [place] [id number] Oct, [facility] [address] [id number] [place] [id number] Oct, [facility] [address] [id number] [place] [id number] Oct, [facility] [address] [id number] [place] 017738551 Oct, [facility] [address] [id number] [place] 00[place] Sep, [facility] [address] [id number] [place] [id number] Sep, [facility] [address]100[place], [place] [address]- 0645 Sep, [facility] [place] [facility] [address]100[place], [place] [address]- 9813 Sep, [facility] [place] [facility] [address] [facility] [id number], [place] [address]- 9537 Sep, [facility] [place] [facility] [address] [facility] [id number], [place] 264212- 7640 Sep, [facility] [place] [facility] [address] [facility] [id number], [place] [address]- 0087 Aug, [facility] [place] [facility] [address]100[place], [place] [address]0106- 9304 Aug, [facility] [place] [facility] [id number] [place] [address], [place] [address]- 1879 Aug, [facility] [place] [facility] [address] [id number] [place] [address]- 3826 Aug, [facility] [place] [facility] [address] [id number] [place] [address]- 3041 Aug, [facility] [place] [facility] [address] [id number] [place] [address]- 5765 Aug, [facility] [place] [facility] [address] [id number] [place] [address]- 7554 Aug, [facility] [place] [facility] [address] [id number] [place] [address]- 0108 Aug, [facility] [place] [facility] [address] [id number] [place] [address]- 4658 27 Jun, 2011 [facility] [place] [facility] [address] [id number] [place] [address]- 1802 27 Jun, 2011 [facility] [place] [facility] [address] [id number] [place] [address]- 8018 19 Jun, 2011 [facility] [place] [facility] [address] [id number] [place] [address]- 7388 19 Jun, 2011 [facility] [place] [facility] [address] [id number] [place] [address]- 7762 14 Jun, 2011 [facility] [place] [facility] [address] [id number] [place] [address]- 1120 13 Jun, 2011 [facility] [place] [facility] [address] [id number] [place] [address]- 5150 12 Jun, 2011 [facility] [place] [facility] [address] [id number] [place] [address]- 5667 12 Jun, 2011 [facility] [place] [facility] [address] [id number] [place] [address]- 2165 12 Jun, 2011 [facility] [place] [facility] [address] [id number] [place] [address]- 3662 14 May, 2011 [facility] [place] [facility] [address]005[address]100[place], [place] [address]- 1577 Apr, [facility] [id number] [address] Feb, [facility] [id number] [address] Dec, [facility] [id number] [place] [address] Aug, [facility] [id number] [address] Aug, [facility] [id number] [place] [address] Aug, [facility] [id number] [address] Aug, [facility] [id number] [address] Jul, [facility] [id number] [address] Jun, [facility] [id number], [place] [address] Jun, IMMUNIZATIONS No Known Immunizations SOCIAL HISTORY Never Assessed REASON FOR VISIT Establish Care, has moved away and now has moved back [employer] [employer] PLAN OF CARE Activity Details Follow Up 2 weeks Reason:bipolar VITAL SIGNS Height 59 in 2017-05-25 Weight 207 lbs 2017-05-25 Temperature 97 degrees Fahrenheit 2017-05-25 Heart Rate 88 bpm 2017-05-25 Respiratory Rate 18 2017-05-25 BMI 41.80 kg/m2 2017-05-25 Blood pressure systolic 148 mmHg 2017-05-25 Blood pressure diastolic 75 mmHg 2017-05-25 MEDICATIONS Medication Instructions Dosage Frequency Start Date End Date Duration Status Ventolin HFA 108 (90 Base) MCG/ACT Inhalation every 4 hrs 2 puffs as needed 4h 0 Active Albuterol Sulfate (2.5 MG/3ML) 0.083% Inhalation Three times a day 3 ml 8h 0 Active Symbicort 160-4.5 MCG/ACT Inhalation Twice a day 2 puffs 12h 0 Active Gabapentin 400 mg Orally Three times a day 2 capsule(take one capsule for the first week) 8h 0 Active Losartan Potassium-HCTZ 50-12.5 MG Orally twice a day 1 tablet 12h 0 Active Atorvastatin Calcium 40 MG Orally Once a day 1 tablet 24h 0 Active Alprazolam 0.5 MG Orally 2 times per day 1 tablet 0 Active Aspir-81 81 MG Orally Once a day 1 tablet 24h Active [place] Carbonate 300 MG Orally 2 times a day 2 capsule(take 1 capsule for the first week) 12h 0 Active RESULTS No Results PROCEDURES Procedure Date Ordered Result Body Site DRUG TEST PRSMV DIR OPT OBS May 25, 2017 MICROALBUMIN, SEMIQUANT May 25, 2017 MICROALBUMIN, QUANTITATIVE May 25, 2017 ASSAY OF URINE CREATININE May 25, 2017 INSTRUCTIONS MEDICATIONS ADMINISTERED No Known Medications [...] Coronary atherosclerosis of unspecified type of vessel, [place] or graft Medical History Coronary atherosclerosis of unspecified type of vessel, [place] or graft Surgical History section x4 Surgical History CABG x3 Surgical History Left arm-Plate and screws placed Hospitalization History Surgery(s)/Childbirth(s) only
--- OUTSIDE RECORDS SUMMARY | 2019-02-02 14:06 | XMS REPORT ---
Author Author ЕКАТЕРИНА MTZ [facility] Address [address] [place] [address] Care Team Providers Care Public Service Administrator Name Role Phone ЕКАТЕРИНА MTZ Unavailable PROBLEMS Type Condition ICD9-CM Code RFW10-YP Code Onset Dates Condition Status SNOMED Code Problem Coronary artery disease involving coronary bypass graft of eastern sh[place] heart without angina pectoris I25.810 Active 031447263 Problem Chronic obstructive pulmonary disease with acute exacerbation J44.1 Active 093897683 Problem Mixed hyperlipidemia E78.2 Active 250788031 Problem Bipolar disorder, in partial remission, most recent episode depressed F31.75 Active 04686806 Problem Claudication I73.9 Active 304078776 Problem MESERET (generalized anxiety disorder) F41.1 Active 15722773 Problem Panic disorder F41.0 Active 940870434 Problem Coronary artery disease involving eastern shoshone coronary artery of eastern shoshone heart without angina pectoris I25.10 Active 7608155001909 Problem Mood disorder F39 Active 65592343 Problem Obesity (BMI 30-39.9) E66.9 Active 789207103 Problem Bipolar 1 disorder F31.9 Active 326120602 Problem PTSD (post-traumatic stress disorder) F43.10 Active 20388401 Problem Sleep apnea in adult G47.30 Active 51793919 Problem Essential hypertension I10 Active 92108851 Problem COPD mixed type J44.9 Active 16558458 ALLERGIES Substance Reaction Event Type Date Status Penicillin V Potassium Swelling/hives Drug Allergy May, Active Abilify dizziness Drug Allergy May, Active ENCOUNTERS Encounter Location Date Diagnosis [facility] [address] [id number] [id number] Feb, [facility] [address] [facility] [id number] [id number] [address] January, [facility] [address] [facility] [id number], [place] [address] January, [facility] [address], [place] [address] January, Bipolar 1 disorder, depressed F31.9 ; PTSD (post-traumatic stress disorder) F43.10 and Panic attacks F41.0 [facility] [address], [place] [address] Dec, BMI 45.0-49.9, adult Z68.42 ; Bipolar disorder, in partial remission, most recent episode depressed F31.75 ; MESERET (generalized anxiety disorder) F41.1 and Panic disorder F41.0 [place] [address] [place] [address] Dec, Bipolar 1 disorder, depressed F31.9 ; PTSD (post-traumatic stress disorder) F43.10 and Panic attacks F41.0 [place] [address], [place] [address] Nov, Bipolar disorder, in partial remission, most recent episode depressed F31.75 ; MESERET (generalized anxiety disorder) F41.1 and Panic disorder F41.0 [place] [address], [place] [address] Nov, [facility] [address], [place] [address] Nov, [place] [address], [place] [address] Oct, BMI 45.0-49.9, adult Z68.42 ; Bipolar disorder, in partial remission, most recent episode depressed F31.75 ; MESERET (generalized anxiety disorder) F41.1 and Panic disorder F41.[address] [id number] [place] [id number] Oct, BMI 45.0-49.9, adult Z68.42 ; Coronary artery disease involving eastern shosh[place] coronary artery of eastern shoshone heart without angina pectoris I25.10 ; Hx of CABG Z95.1 ; Dyspnea on exertion R06.09 ; Essential hypertension I10 ; Mixed hyperlipidemia E78.2 ; Claudication I73.9 and Tobacco use Z72.0 [facility] [id number] [place] [address] [id number] 15 Oct, 2017 BMI 45.0-49.9, adult Z68.42 ; Bipolar 1 disorder, depressed F31.9 and Abscess L02.91 [place] [address] [address] 14 Oct, 2017 Bipolar 1 disorder, depressed F31.9 ; PTSD (post-traumatic stress disorder) F43.10 and Panic attacks F41.0 [place] [address] [address] Sep, BMI 40.0-44.9, adult Z68.41 ; Mood disorder F39 ; MESERET ( generalized anxiety disorder) F41.1 and Panic disorder F41.0 [place] [address] [address] Sep, BMI 40.0-44.9, adult Z68.41 [place] [address] [address] Sep, Bipolar 1 disorder, depressed F31.9 ; PTSD (post-traumatic stress disorder) F43.10 and Panic attacks F41.0 [place] [address] [place] [id number] [place] [address]- [address] Aug, BMI 40.0-44.9, adult Z68.41 ; Mood disorder F39 ; MESERET ( generalized anxiety disorder) F41.1 and Panic disorder F41.0 [place] [address] [place] [id number] [place] [address]- [address]64 Aug, Bipolar 1 disorder, depressed F31.9 ; PTSD (post-traumatic stress disorder) F43.10 and Panic attacks F41.0 [facility] [address] [place] [address] [id number] Aug, [facility] [address] [id number] Aug, COPD mixed type J44.9 [facility] [address]005[address], [place] [address] Aug, [facility] [address] [place] [address]- [address] Jul, PTSD (post-traumatic stress disorder) F43.10 ; Panic disorder F41.0 ; MESERET (generalized anxiety disorder) F41.1 ; Mood disorder F39 and BMI 40.0-44.9, adult Z68.41 [facility] [address]00565100[place], [place] [address] Jul, Bipolar 1 disorder, depressed F31.9 ; PTSD (post-traumatic stress disorder) F43.10 and Panic attacks F41.0 [address] [place] [address] [id number] Jul, Bipolar 1 disorder, depressed F31.9 [address] [place] [address] [id number] Jul, Anxiety F41.9 ; COPD mixed type J44.9 ; Essential hypertension I10 ; Bipolar 1 disorder F31.9 ; High risk medication use Z79.899 ; BMI 40.0-44.9, adult Z68.41 and Coronary artery disease involving coronary bypass graft of eastern shoshone heart without angina pectoris I25.810 [address]005[address] [id number] Jul, Chronic obstructive pulmonary disease with acute exacerbation J44.1 and Acute nasopharyngitis J00 [address] [place] [address] [id number] Jul, Anxiety F41.9 ; Mixed hyperlipidemia E78.2 and Bipolar 1 disorder F31.9 [facility] [address] [id number] [place] [address] Jun Bipolar 1 disorder F31.[address] [facility] [address] [id number] [place] [address] Jun [place] [id number] [place] [address] [id number] Jun, Anxiety F41.9 ; Elevated blood sugar R73.9 ; Mixed hyperlipidemia E78.2 ; COPD mixed type J44.9 ; Essential hypertension I10 ; Bipolar 1 disorder F31.9 ; Coronary artery disease involving coronary bypass graft of eastern shoshone heart without angina pectoris I25.810 ; High risk medication use Z79.899 ; Controlled substance agreement signed Z79.899 ; Elevated fasting glucose R73.01 ; Encounter for immunization Z23 and BMI 40.0-44.9, adult Z68.41 [facility] [id number] [place] [address] [id number] Jun, Elevated blood sugar R73.9 [place] [id number] [place] [address] [id number] Jun, [facility] [address] [place] [id number] [place] [address] [id number] Jun, Bipolar 1 disorder F31.9 ; Obesity (BMI 30-39.9) E66.9 ; Coronary artery disease involving coronary bypass graft of eastern shosh[place] heart without angina pectoris I25.810 and Essential hypertension I10 [address] [place] [address] [id number] Jun, Coronary artery disease involving coronary bypass graft of eastern shoshone heart without angina pectoris I25.810 ; Bipolar 1 disorder F31.9 ; Anxiety F41.9 ; Essential hypertension I10 ; COPD mixed type J44.9 and Mixed hyperlipidemia E78.2 [place] [id number] [place] [address] [id number] May, Severe single current episode of major depressive disorder, 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.2 ; Bipolar 1 disorder F31.9 ; Anxiety F41.9 ; PTSD (post -traumatic stress disorder) F43.10 ; Coronary artery disease involving coronary bypass graft of eastern shoshone heart without angina pectoris I25.810 ; Sleep apnea in adult G47.30 ; Essential hypertension I10 ; High risk medication use Z79.899 ; Obesity (BMI 30-39.9) E66.9 ; Encounter for therapeutic drug level monitoring Z51.81 and COPD mixed type J44.9 [facility] [id number] [place] [address] [id number] May, 2017 Severe single current episode of major depressive disorder, 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.2 ; Bipolar 1 disorder F31.9 ; Anxiety F41.9 ; PTSD (post -traumatic stress disorder) F43.10 ; Mixed hyperlipidemia E78.2 ; Coronary artery disease involving coronary bypass graft of eastern shoshone heart without angina pectoris I25.810 ; Sleep apnea in adult G47.30 ; Essential hypertension I10 ; High risk medication use Z79.899 ; Controlled substance agreement signed Z79.899 ; Obesity (BMI 30-39.9) E66.9 ; Tobacco abuse Z72.0 ; Tobacco abuse counseling Z71.6 and COPD mixed type J44.9 [facility] [id number] [place] [address] [id number] May, [facility] [address] [id number] [place] [address]- 4791 Dec, [facility] [id number] [place] [address] 74424- 9958 Dec, [facility] [id number] [place] [address] 91743- 0052 May, [facility] [address] [id number] [place] [address] 96718- 4854 May, [facility] [id number] [place] [address] [id number] Dec, [facility] [address] [place] [address] 05759- 0356 Dec, [facility] [id number] [place] [address] [id number] Dec, [facility] [id number] [place] [address] 90110- 1366 Dec, [facility] [address] [address] [id number] [place] [address] 60859- 1754 Dec, [facility] [address] [place] [address] 70590- 7158 Dec, [facility] [address] [place] [id number] [place] [address]- 2546 Nov, [facility] [address] [id number] [place] [id number] Nov, [facility] [address] [id number] [place] [id number] Nov, [facility] [address] [facility] [id number] [place] [id number] Nov, [facility] [place] [facility] [address] [facility] [id number] [place] [address]- 8796 Nov, [facility] [place] [facility] [address] [facility] [id number] [place] [address]- 8046 Nov, [facility] [place] [facility] [address] [facility] [id number] [place] [address]- 8986 Nov, [facility] [place] [facility] [address] [facility] [id number], [place] [address]- 9696 Nov, [facility] [place] [facility] [address] [facility] [id number], [place] [address]- 9470 Nov, [facility] [place] [facility] [address] [facility] [id number], [place] [address] Nov, [facility] [address] [facility] [id number] [place] [id number] Nov, [facility] [address] [facility] [id number] [place] [id number] Oct, [facility] [place] [facility] [address] [facility] [id number], [place] [address]- 2546 Oct, [facility] [address] [facility] [id number] [place] [id number] Oct, [facility] [place] [facility] [address] [facility] [id number], [place] [address]- 1236 Oct, [facility] [place] [facility] [address] [facility] [id number], [place] [address]- 2546 Oct, [facility] [address] [facility] [id number] [place] [id number] Sep, [facility] [address] [id number] [place] [address]- 2546 Sep, [facility] [id number] [place] [id number] Sep, [facility] [address] [place] [address] [id number] [place] [address]- 2546 Sep, [facility] [address] [place] [address]- 2546 Sep, [facility] [address] [facility] [id number] [place] [address] 2546 Sep, [facility] [address] [place] [address] [id number] [place] [address]- 5336 Aug, [facility] [id number] [place] [id number] Aug, [facility] [address] [place] [address]- 3656 Aug, [facility] [address] [place] [id number] [place] [id number] Jul, [facility] [address], [place] [address]- 2896 Jul, [facility] [address] [place] [address] [id number] [place] [id number] Jul, [facility] [address] [place] [address]- 2546 Jul, [facility] [place] [facility] [address] [facility] [id number], [place] [address]- 2546 May, [facility] [place] [facility] [address] [facility] [id number] [place] [address]- 2546 Apr, [facility] [place] [facility] [address] [facility] [id number] [place] [address]- 2546 Apr, [facility] [place] [facility] [address] [id number], [place] [address]- 2546 Mar, [facility] [address] [id number] [place] [id number] Feb, [facility] [address] [id number] [place] [id number] Feb, [facility] [address] [id number] [place] [id number] Feb, [facility] [address] [facility] [id number], [place] [address]- 1399 Feb, [facility] [address] [facility] [id number], [place] [address]- 1487 January, [facility] [address] [facility] [id number], [place] [address]- 3699 January, [facility] [address] [id number] [place] [id number] Dec, [facility] [address] [id number] [place] [id number] Dec, [facility] [address] [id number] [place] [id number] Dec, [facility] [address] [id number] [place] [id number] Dec, [facility] [address] [id number] [place] [id number] Dec, [facility] [address] [id number] [place] [id number] Dec, [facility] [address] [facility] [id number], [place] [address]- 2544 Dec, [facility] [address] [facility] [id number], [place] [address]- 2546 Dec, [facility] [address] [id number] [place] [id number] Nov, [facility] [address] [id number] [place] [id number] Nov, [facility] [address] [id number] [place] [id number] Nov, [facility] [address] [facility] [id number], [place] [address]- 2546 Oct, [facility] [address] [facility] [id number] [place] [address]- 2546 Oct, [facility] [place] [facility] [address] [facility] [id number], [place] [address]- 2546 Sep, [facility] [place] [facility] [address] [facility] [id number] [place] [address]- 2546 Aug, [facility] [place] [facility] [address] [facility] [id number], [place] [address] 2546 Aug, [facility] [place] [facility] [address] [facility] [id number] [place] [address]- 2346 Aug, [facility] [place] [facility] [address] [facility] [id number] [place] [address]- 5416 Aug, [facility] [id number] [id number] Aug, [facility] [place] [facility] [address] [facility] [id number], [place] [address]- 0916 Aug, [facility] [place] [facility] [address], [place] [address]- 4996 Jul, [facility] [place] [facility] [address] [facility] [id number], [place] [address]- 2546 Jul, [facility] [place] [facility] [address], [place] [address]- 2546 Jul, [facility] [place] [facility] [address] [facility] [id number], [place] [address]- 2546 Jul, [facility] [address] [facility] [id number] [place] [id number] Jun, [facility] [address] [facility] [id number] [place] [id number] Jun, [facility] [place] [facility] [address] [facility] [id number], [place] [address]- 2546 Jun, [facility] [address] [id number] [place] [id number] Apr, [facility] [place] [facility] [address] [facility] [id number] [place] [address]- 7046 Apr, [facility] [place] [facility] [address] [facility] [id number] [place] [address]- 2546 Mar, [facility] [address] [id number] [place] [id number] Feb, [facility] [address] [id number] [place] [id number] Feb, [facility] [place] [facility] [address] [id number] [place] [address]- 9196 Feb, [facility] [address] [facility] [id number] [place] [id number] Feb, [facility] [place] [facility] [address] [facility] [id number] [place] [address]- 2666 Feb, [facility] [place] [facility] [address], [place] [address]- 8216 Feb, [facility] [place] [facility] [address] [facility] [id number], [place] [address]- 5066 Feb, [facility] [place] [facility] [address] [facility] [id number] [place] [address]- 8096 Feb, [facility] [address] [facility] [id number] [place] [id number] January, [facility] [address] [id number] [place] [id number] Dec, [facility] [place] [facility] [address] [facility] [id number], [place] [address]- 2546 Dec, [facility] [place] [facility] [address] [facility] [id number] [place] [address]- 2546 Dec, [facility] [address] [facility] [id number] [place] [id number] Dec, [facility] [place] [facility] [address] [facility] [id number] [place] [address]- 2546 Dec, [facility] [address] [id number] [place] [id number] Dec, [facility] [address] [id number] [place] [id number] Nov, [facility] [address] [id number] [id number] Nov, [facility] [address] [id number] [place] [id number] Nov, [facility] [address] [id number] [place] [id number] Nov, [facility] [address] [facility] [id number], [place] [address]- 4583 Oct, [facility] [address] [id number] [place] [id number] Oct, [facility] [address] [id number] [place] [id number] Oct, [facility] [address] [id number] [place] [id number] Oct, [facility] [address] [id number] [place] [id number] Oct, [facility] [address] [id number] [place] [id number] Sep, [facility] [address] [id number] [place] [id number] Sep, [facility] [address], [place] [address]- 1264 Sep, [facility] [address], [place] [address]- 7742 Sep, [facility] [place] [facility] [address]100[place], [place] [address]- 4008 Sep, [facility] [id number] [place] [address] 92743- 7757 Sep, [facility] [address], [place] [address]- 7955 Aug, [facility] [id number] [place] [address] 84708- 3553 29 Aug, 2011 [facility] [place] [facility] [address] [id number] [place] [address]- 6016 Aug, [facility] [place] [facility] [address] [id number] [place] [address]- 3988 Aug, [facility] [place] [facility] [address] [id number] [place] [address]- 6069 Aug, [facility] [place] [facility] [address] [id number] [place] [address]- 6053 Aug, [facility] [place] [facility] [address] [id number] [place] [address]- 5800 Aug, [facility] [place] [facility] [address] [id number] [place] [address]- 0068 Aug, [facility] [place] [facility] [address] [facility] [id number] [place] [address]- 3513 Jun, [facility] [place] [facility] [address] [id number] [place] [address] 27 Jun, 2011 [facility] [place] [facility] [address] [facility] [id number] [place] [address] 19 Jun, 2011 [facility] [facility] [address] [facility] [id number] [place] [address] 19 Jun, 2011 [facility] [place] [facility] [address] [id number], [place] [address] 14 Jun, 2011 [facility] [facility] [address] [id number], [place] [address] 13 Jun, 2011 [facility] [place] [facility] [address] [id number], [place] [address] 12 Jun, 2011 [facility] [facility] [address] [facility] [id number], [place] [address] 12 Jun, 2011 [facility] [facility] [address] [facility] [id number], [place] [address] 12 Jun, 2011 [facility] [facility] [address], [place] [address] 14 May, 2011 [facility] [id number], [place] [address] 10 Apr, 2011 [facility] [address], [place] [address] 16 Feb, 2011 [facility] [id number], [place] [address] Dec, [facility] [id number] [address] Aug, [facility] [id number] [place] [address] Aug, [facility] [id number], [place] [address] Aug, [facility] [id number] [place] [address] Aug, [facility] [address], [place] [address] Jul, [facility] [address], [place] [address] Jun, [facility] [address], [place] [address] Jun, IMMUNIZATIONS No Known Immunizations SOCIAL HISTORY Never Assessed REASON FOR VISIT Bipolar follow up [facility] [employer] PLAN OF CARE Activity Details Follow Up 4 Weeks Reason:CHM Bipolar VITAL SIGNS Height 59 in 2017-06-08 Weight 208.6 lbs 2017-06-08 Temperature 96.9 degrees Fahrenheit 2017-06-08 Heart Rate 70 bpm 2017-06-08 Respiratory Rate 18 2017-06-08 BMI 42.13 kg/m2 2017-06-08 Blood pressure systolic 112 mmHg 2017-06-08 Blood pressure diastolic 62 mmHg 2017-06-08 MEDICATIONS Medication Instructions Dosage Frequency Start Date End Date Duration Status Gabapentin 400 mg Orally Three times a day 2 capsule(take one capsule for the first week) 8h 0 Active Symbicort 160-4.5 MCG/ACT Inhalation Twice a day 2 puffs 12h 0 Active Alprazolam 0.5 MG Orally 2 times per day 1 tablet 0 Active [place] Carbonate 300 MG Orally 2 times a day 2 capsule(take 1 capsule for the first week) 12h 0 Active Atorvastatin Calcium 40 MG Orally Once a day 1 tablet 24h 0 Active Losartan Potassium-HCTZ 50-12.5 MG Orally twice a day 1 tablet 12h 0 Active Ventolin HFA 108 (90 Base) MCG/ACT Inhalation every 4 hrs 2 puffs as needed 4h 0 Active Albuterol Sulfate (2.5 MG/3ML) 0.083% Inhalation Three times a day 3 ml 8h 0 Active Aspir-81 81 MG Orally Once a day 1 tablet 24h Active RESULTS No Results PROCEDURES No Known [...] Coronary atherosclerosis of unspecified type of vessel, [place] or graft Medical History Coronary atherosclerosis of unspecified type of vessel, [place] or graft Surgical History section x4 Surgical History CABG x3 Surgical History Left arm-Plate and screws placed Hospitalization History Surgery(s)/Childbirth(s) only
--- OUTSIDE RECORDS SUMMARY | 2019-02-02 14:06 | XMS REPORT ---
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 I25.810 Active 766910855 Problem Chronic obstructive pulmonary disease with acute exacerbation J44.1 Active 133793794 Problem Mixed hyperlipidemia E78.2 Active 828201694 Problem Bipolar disorder, in partial remission, most recent episode depressed F31.75 Active 10287907 Problem Claudication I73.9 Active 333873044 Problem MESERET (generalized anxiety disorder) F41.1 Active 29863774 Problem Panic disorder F41.0 Active 925686010 Problem Coronary artery disease involving lac vieux coronary artery of lac vieux heart without angina pectoris I25.10 Active 8166567232714 Problem Mood disorder F39 Active 88056707 Problem Obesity (BMI 30-39.9) E66.9 Active 611935186 Problem Bipolar 1 disorder F31.9 Active 284760411 Problem PTSD (post-traumatic stress disorder) F43.10 Active 89429375 Problem Sleep apnea in adult G47.30 Active 87433276 Problem Essential hypertension I10 Active 89325813 Problem COPD mixed type J44.9 Active [id number] ALLERGIES No Information ENCOUNTERS Encounter Location Date Diagnosis [facility], [place] [address] [facility] [id number] [address] Feb, [facility], [place] [address] [facility] [id number], [place] [address] Feb, [address] [id number] [id number] Feb, [facility], [place] [address] [facility] [id number] [place] [address] 91627- 3889 January, High risk medication use Z79.899 ; Bipolar disorder, in partial remission, most recent episode depressed F31.75 ; MESERET (generalized anxiety disorder) F41.1 ; Panic disorder F41.0 and BMI 45.0-49.9, adult Z68.42 [place] [address] [place] [address] 91861- 3936 January, Bipolar 1 disorder, depressed F31.9 ; PTSD (post-traumatic stress disorder) F43.10 and Panic attacks F41.0 [place] [address] [place] [id number] [place] [address] 77522- 3410 January, Bipolar 1 disorder, depressed F31.9 ; PTSD (post-traumatic stress disorder) F43.10 and Panic attacks F41.0 [place] [address] [place] [id number] [place] [address] 60697- 4177 Dec, BMI 45.0-49.9, adult Z68.42 ; Bipolar disorder, in partial remission, most recent episode depressed F31.75 ; MESERET (generalized anxiety disorder) F41.1 and Panic disorder F41.0 [place] [address] [place] [id number] [place] [address] 17578- 1382 Dec, Bipolar 1 disorder, depressed F31.9 ; PTSD (post-traumatic stress disorder) F43.10 and Panic attacks F41.0 [place] [address] [place] [address] 37823- 7332 Nov, Bipolar disorder, in partial remission, most recent episode depressed F31.75 ; MESERET (generalized anxiety disorder) F41.1 and Panic disorder F41.0 [place] [address] [place] [id number] [place] [address] 06876- 9233 Nov, [place] [address] [id number] [place] [address] 88064- 0910 Nov, [place] [address] [place] [id number] [place] [address] 94266- 0494 Oct, BMI 45.0-49.9, adult Z68.42 ; Bipolar disorder, in partial remission, most recent episode depressed F31.75 ; MESERET (generalized anxiety disorder) F41.1 and Panic disorder F41.0 [facility] [address] [facility] [address] [id number] [id number] 23 Oct, 2017 BMI 45.0-49.9, adult Z68.42 ; Coronary artery disease involving lac vieux coronary artery of lac vieux heart without angina pectoris I25.10 ; Hx of CABG Z95.1 ; Dyspnea on exertion R06.09 ; Essential hypertension I10 ; Mixed hyperlipidemia E78.2 ; Claudication I73.9 and Tobacco use Z72.0 [facility] [address] [facility] [id number] [id number] 15 Oct, 2017 BMI 45.0-49.9, adult Z68.42 ; Bipolar 1 disorder, depressed F31.9 and Abscess L02.91 [place] [address] [place] [address] 53063- 9231 14 Oct, 2017 Bipolar 1 disorder, depressed F31.9 ; PTSD (post-traumatic stress disorder) F43.10 and Panic attacks F41.0 [place] [address] [place] [address] 66113- 1388 Sep, BMI 40.0-44.9, adult Z68.41 ; Mood disorder F39 ; MESERET ( generalized anxiety disorder) F41.1 and Panic disorder F41.0 [facility], [place] [address] [place] [address] 85795- 7645 Sep, BMI 40.0-44.9, adult Z68.41 [facility], [place] [address] [place] [address] 72837- 9333 Sep, Bipolar 1 disorder, depressed F31.9 ; PTSD (post-traumatic stress disorder) F43.10 and Panic attacks F41.0 [facility], [place] [address] [place] [address] 02350- 6065 Aug, BMI 40.0-44.9, adult Z68.41 ; Mood disorder F39 ; MESERET ( generalized anxiety disorder) F41.1 and Panic disorder F41.0 [facility], [place] [address] [place] [address] 48115- 1012 Aug, Bipolar 1 disorder, depressed F31.9 ; PTSD (post-traumatic stress disorder) F43.10 and Panic attacks F41.0 [address] [place] [address] [id number] Aug, [place] [id number] [place] [address] [id number] Aug, COPD mixed type J44.9 [facility], [place] [address] [place] [id number] [place] [address] 80541- 8413 Aug, [place] [address] [place] [id number] [place] [address] 92466- 3728 Jul, PTSD (post-traumatic stress disorder) F43.10 ; Panic disorder F41.0 ; MESERET (generalized anxiety disorder) F41.1 ; Mood disorder F39 and BMI 40.0-44.9, adult Z68.41 [facility], [place] [address] [place] [address] 39579- 5152 Jul, Bipolar 1 disorder, depressed F31.9 ; PTSD (post-traumatic stress disorder) F43.10 and Panic attacks F41.0 [address] [place] [address] [id number] Jul, Bipolar 1 disorder, depressed F31.9 [address] [place] [address] [id number] Jul, Anxiety F41.9 ; COPD mixed type J44.9 ; Essential hypertension I10 ; Bipolar 1 disorder F31.9 ; High risk medication use Z79.899 ; BMI 40.0-44.9, adult Z68.41 and Coronary artery disease involving coronary bypass graft of lac vieux heart without angina pectoris I25.[address] [place] [address] [id number] 06 Jul, 2017 Chronic obstructive pulmonary disease with acute exacerbation J44.1 and Acute nasopharyngitis J00 [facility] [address] [facility] [id number] [id number] Jul, Anxiety F41.9 ; Mixed hyperlipidemia E78.2 and Bipolar 1 disorder F31.9 [facility] [address] [id number] [place] [address] Jun Bipolar 1 disorder F31.9 [facility] [address] [id number] [place] [address] Jun [place] [address] [place] [id number] [place] [address] Jun, Anxiety F41.9 ; Elevated blood sugar R73.9 ; Mixed hyperlipidemia E78.2 ; COPD mixed type J44.9 ; Essential hypertension I10 ; Bipolar 1 disorder F31.9 ; Coronary artery disease involving coronary bypass graft of lac vie[place] heart without angina pectoris I25.810 ; High risk medication use Z79.899 ; Controlled substance agreement signed Z79.899 ; Elevated fasting glucose R73.01 ; Encounter for immunization Z23 and BMI 40.0-44.9, adult Z68.41 [facility] [id number] [place] [address] [id number] Jun, Elevated blood sugar R73.9 [address] [place] [address] [id number] Jun, [address] [place] [address] [id number] Jun, Bipolar 1 disorder F31.9 ; Obesity (BMI 30-39.9) E66.9 ; Coronary artery disease involving coronary bypass graft of lac vie[place] heart without angina pectoris I25.810 and Essential hypertension I10 [facility] [address] [place] [id number] [place] [id number] Jun, Coronary artery disease involving coronary bypass graft of lac vieux heart without angina pectoris I25.810 ; Bipolar 1 disorder F31.9 ; Anxiety F41.9 ; Essential hypertension I10 ; COPD mixed type J44.9 and Mixed hyperlipidemia E78.2 [facility] [address] [place] [id number] [place] [address] May, Severe single current episode of major depressive disorder, 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.2 ; Bipolar 1 disorder F31.9 ; Anxiety F41.9 ; PTSD (post -traumatic stress disorder) F43.10 ; Coronary artery disease involving coronary bypass graft of lac vie[place] heart without angina pectoris I25.810 ; Sleep apnea in adult G47.30 ; Essential hypertension I10 ; High risk medication use Z79.899 ; Obesity (BMI 30-39.9) E66.9 ; Encounter for therapeutic drug level monitoring Z51.81 and COPD mixed type J44.9 [place] [id number] [place] [address] [id number] May, Severe single current episode of major depressive disorder, 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.2 ; Bipolar 1 disorder F31.9 ; Anxiety F41.9 ; PTSD (post -traumatic stress disorder) F43.10 ; Mixed hyperlipidemia E78.2 ; Coronary artery disease involving coronary bypass graft of lac vieux heart without angina pectoris I25.810 ; Sleep apnea in adult G47.30 ; Essential hypertension I10 ; High risk medication use Z79.899 ; Controlled substance agreement signed Z79.899 ; Obesity (BMI 30-39.9) E66.9 ; Tobacco abuse Z72.0 ; Tobacco abuse counseling Z71.6 and COPD mixed type J44.9 [place] [id number] [place] [address] [id number] May, [facility], [place] [address] [place] [id number] [place] [address] [id number]- 2413 Dec, [facility], [place] [address] [place] [id number] [place] [address] 63280- 2875 Dec, [facility], [place] [address] [id number]- 2657 May, [facility], [place] [address] [place] [id number] [place] [address] 82559- 0249 May, [place] [id number] [place] [address] [id number] Dec, [facility], [place] [address] 80117- 7572 Dec, [address] [id number] Dec, [facility] [place] [facility] [address] [id number] [place] [address]- 2546 Dec, [facility] [place] [facility] [address] [facility] [id number] [place] [address]- 2546 Dec, [facility] [place] [facility] [address] [facility] [id number] [place] [address]- 2546 Dec, [facility] [place] [facility] [address] [id number] [place] [address]- 2546 Nov, [facility] [address] [id number] [place] [id number] Nov, [facility] [address] [id number] [place] [address] Nov, [facility] [address] [id number] [place] [address] Nov, [facility] [place] [facility] [address] [facility] [id number], [place] [address] 2546 Nov, [facility] [place] [facility] [address] [facility] [id number] [place] [address]- 7876 Nov, [facility] [place] [facility] [address] [facility] [id number] [place] [address]- 0296 Nov, [facility] [place] [facility] [address] [facility] [id number], [place] [address] 2546 15 Nov, 2013 [facility] [place] [facility] [address] [facility] [id number], [place] [address]- 2546 Nov, [facility] [place] [facility] [address] [facility] [id number] [place] [address]- 2546 Nov, [facility] [address] [id number] [place] [id number] Nov, [facility] [address] [id number] [place] [id number] Oct, [facility] [place] [facility] [address] [facility] [id number] [place] [address] 7796 Oct, [facility] [address] [id number] [place] [id number] Oct, [facility] [place] [facility] [address] [id number] [place] [address]- 4186 Oct, [facility] [place] [facility] [address] [facility] [id number] [place] [address]- 8116 Oct, [facility] [address] [facility] [id number] [place] [id number] Sep, [facility] [place] [facility] [address] [id number], [place] [address]- 8266 Sep, [facility] [address] [facility] [id number] [place] [address] Sep, [facility] [place] [facility] [address] [place] [id number], [place] [address]- 9816 Sep, [facility] [place] [facility] [address]65100[place], [place] [address]- 1426 Sep, [facility] [place] [facility] [address] [facility] [id number][place] [address]- 2766 Sep, [facility] [place] [facility] [address]00565100[place], [place] [address]- 6346 Aug, [facility] [address] [facility] [id number] [place] [id number] Aug, [facility] [place] [facility] [address] [place] [id number] [address]- 2546 Aug, [facility] [address] [facility] [id number] [place] [id number] Jul, [facility] [place] [facility] [address] [id number] [address]- 6776 Jul, [facility] [address] [facility] [id number] [place] 56[address] Jul, [facility] [place] [facility] [address] [place] [id number], [place] [address]- 2906 Jul, [facility] [place] [facility] [address]00565100[place], [place] [address]- 3813 May, [facility] [address] [facility] [id number], [place] [address]- 4917 Apr, [facility] [place] [facility] [address] [facility] [id number], [place] [address]- 5751 Apr, [facility] [address] [facility] [id number], [place] [address]- 9804 Mar, [facility] [address] [id number] [place] [id number] Feb, [facility] [address] [id number] [place] [address] Feb, [facility] [address] [id number] [place] 864395[address] Feb, [facility] [address]65100[place], [place] [address]- 1751 Feb, [facility] [address] [id number], [place] [address]- 1901 January, [facility] [address] [place] [id number], [place] [address]- 1087 January, [facility] [address] [id number] [place] [id number] Dec, [facility] [address] [id number] [place] 20049[address] Dec, [facility] [address] [id number] [place] 46979[address] Dec, [facility] [address] [id number] [place] 737198264 Dec, [facility] [address] [id number] [place] [address] Dec, [facility] [address] [id number] [place] 7945[address] Dec, [facility] [place] [facility] [address] [id number], [place] [address] 2546 Dec, [facility] [place] [facility] [address] [facility] [id number], [place] [address]- 2546 Dec, [facility] [address] [id number] [place] [address]47[address] Nov, [facility] [address] [id number] [place] 725586464 Nov, [facility] [address] [facility] [id number] [place] [address] Nov, [facility] [place] [facility] [address] [facility] [id number], [place] [address]- 2546 Oct, [facility] [place] [facility] [address] [facility] [id number], [place] [address]- 2546 Oct, [facility] [place] [facility] [address] [place] [id number], [place] [address]- 0456 Sep, [facility] [place] [facility] [address]00565100[place], [place] [address]- 6706 Aug, [facility] [place] [facility] [address] [facility] [id number][place]505- 6995 Aug, [facility] [place] [facility] [address] [id number], [place] [address]- 0127 Aug, [facility] [place] [facility] [address] [id number], [place] [address]- 0732 Aug, [facility] [address] [facility] [id number] [place] [id number] Aug, [facility] [place] [facility] [address] [facility] [id number], [place] [address]- 4943 Aug, [facility] [place] [facility] [address] [facility] [id number], [place] [address]- 3784 Jul, [facility] [place] [facility] [address] [facility] [id number], [place] [address]- 9766 Jul, [facility] [place] [facility] [address] [facility] [id number], [place] [address]- 3006 Jul, [facility] [place] [facility] [address] [facility] [id number], [place] [address]- 2546 Jul, [facility] [address] [id number] [place] [address] Jun, [facility] [address] [facility] [id number] [place] [id number] Jun, [facility] [place] [facility] [address] [facility] [id number] [place] [address] 2546 Jun, [facility] [address] [facility] [id number] [place] 467378220 Apr, [facility] [place] [facility] [address] [facility] [id number], [place] [address] 2546 Apr, [facility] [place] [facility] [address] [id number] [address]- 2546 Mar, [facility] [id number] [place] [address] Feb, [facility] [id number] [place] 127357395 Feb, [facility] [place] [facility] [address]00565100[place], [place] [address]- 4425 Feb, [facility] [id number] [place] [id number] Feb, [facility] [place] [facility] [address]00565100[place], [place] [address]- 0646 Feb, [facility] [place] [facility] [address]00565100[place], [place] [address]- 7790 Feb, [facility] [place] [facility] [address] [facility] [id number], [place] [address] 2546 Feb, [facility] [place] [facility] [address] [facility] [id number], [place] [address]- 3823 Feb, [facility] [address] [facility] [id number] [place] 616555119 January, [facility] [address] [id number] [place] 68[address]39357 Dec, [facility] [place] [facility] [address]00565100[place], [place] [address]- 1972 Dec, [facility] [address] [facility] [id number][place] [address]- 0325 Dec, [facility] [address] [id number] [place] 333162736 Dec, [facility] [address] [facility] [id number], [place] [address]- 8200 Dec, [facility] [address] [id number] [place] [address]17[address] Dec, [facility] [address] [id number] [place] 2084[address] Nov, [facility] [address] [id number] [place] 719560981 Nov, [facility] [address] [id number] [place] 6717744[address] Nov, [facility] [address] [id number] [place] 428[address]190 Nov, [facility] [address]00565100[place], [place] [address]- 8553 Oct, [facility] [address] [id number] [place] 141846309 Oct, [facility] [address] [id number] [place] 018727[place] Oct, [facility] [address] [id number] [place] 593595182 Oct, [facility] [address] [id number] [place] 035503203 Oct, [facility] [address] [id number] [place] 837178771 Sep, [facility] [id number] [place] [address] Sep, [facility] [address]00565100[place] [address]- 1644 Sep, [facility] [address]00565100[place], [place] [address]- 6039 Sep, [facility] [address] [id number] [place] [address]- 3920 Sep, [facility] [place] [facility] [address] [id number] [place] [address]- 3540 Sep, [facility] [place] [facility] [address] [id number] [place] [address]- 0146 Aug, [facility] [place] [facility] [address] [id number] [place] [address]- 4768 Aug, [facility] [place] [facility] [address] [id number] [place] [address]- 7149 Aug, [facility] [place] [facility] [address] [id number] [place] [address]- 2303 Aug, [facility] [place] [facility] [address] [id number] [place] [address] Aug, [facility] [place] [facility] [address] [id number] [place] [address] Aug, [facility] [place] [facility] [address] [id number] [place] [address] Aug, [facility] [place] [facility] [address] [id number] [place] [address] Aug, [facility] [place] [facility] [address] [id number], [place] [address] Jun, [facility] [place] [facility] [address] [id number], [place] [address] 27 Jun, 2011 [facility] [place] [facility] [address] [id number] [place] [address] 19 Jun, 2011 [facility] [place] [facility] [address] [id number], [place] [address] 19 Jun, 2011 [facility] [place] [facility] [address] [id number], [place] [address] 14 Jun, 2011 [facility] [place] [facility] [id number] [address] 13 Jun, 2011 [facility] [place] [address] [facility] [id number], [place] [address] 12 Jun, 2011 [facility] [place] [address] [facility] [id number][place] [address] 12 Jun, 2011 [facility] [place] [id number] Jun, [facility] [place] [address] [facility] [id number], [place] [address] 14 May, 2011 [facility], [place] [id number] [place] [id number] Apr, [facility] [place] [address] [id number] [address] 16 Feb, 2011 [facility] [place] [id number], [place] [address] Dec, [facility] [place] [id number], [place] [address] Aug, [facility] [place] [id number], [place] [address] Aug, [facility] [place] [id number], [place] [address] Aug, [facility] [place] [id number] Aug, [facility] [place] [id number], [place] [address] Jul, [facility] [place] [id number] [address] Jun, [facility] [place] [id number], [place] [address] Jun, IMMUNIZATIONS No Known Immunizations SOCIAL HISTORY Never Assessed REASON FOR VISIT Medication refill request PLAN OF CARE VITAL SIGNS MEDICATIONS Medication Instructions Dosage Frequency Start Date End Date Duration Status Ventolin HFA 108 (90 Base) MCG/ACT Inhalation every 4 hrs 2 puffs as needed 4h Active RESULTS No Results PROCEDURES No Known [...] Coronary atherosclerosis of unspecified type of vessel, lac vieux or graft Medical History Coronary atherosclerosis of unspecified type of vessel, lac vieux or graft Surgical History section x4 Surgical History CABG x3 Surgical History Left arm-Plate and screws placed Hospitalization History Surgery(s)/Childbirth(s) only
--- OUTSIDE RECORDS SUMMARY | 2019-02-02 14:07 | XMS REPORT ---
Author Author ЕКАТЕРИНА MTZ [facility] Address [address] [place] [address] Care Team Providers Care Seamless Tube Roller Name Role Phone ЕКАТЕРИНА MTZ Unavailable PROBLEMS Type Condition ICD9-CM Code MTX86-TH Code Onset Dates Condition Status SNOMED Code Problem Coronary artery disease involving coronary bypass graft of [place] heart without angina pectoris I25.810 Active 415431935 Problem Chronic obstructive pulmonary disease with acute exacerbation J44.1 Active 477563870 Problem Mixed hyperlipidemia E78.2 Active 485754909 Problem Bipolar disorder, in partial remission, most recent episode depressed F31.75 Active 29327183 Problem Claudication I73.9 Active 285592316 Problem MESERET (generalized anxiety disorder) F41.1 Active 35979417 Problem Panic disorder F41.0 Active 960561574 Problem Coronary artery disease involving [place] coronary artery of [place] heart without angina pectoris I25.10 Active 8305678481115 Problem Mood disorder F39 Active 61833797 Problem Obesity (BMI 30-39.9) E66.9 Active 762127680 Problem Bipolar 1 disorder F31.9 Active 520316046 Problem PTSD (post-traumatic stress disorder) F43.10 Active 01957264 Problem Sleep apnea in adult G47.30 Active 03655670 Problem Essential hypertension I10 Active 62866313 Problem COPD mixed type J44.9 Active 48954734 ALLERGIES Substance Reaction Event Type Date Status Penicillin V Potassium Swelling/hives Drug Allergy May, Active Abilify dizziness Drug Allergy May, Active ENCOUNTERS Encounter Location Date Diagnosis [facility] [address] [id number] [place] [address] January, [facility] [address] [id number] [place] [id number] Dec, [facility] [address] [facility] [id number] [address] Dec, [place] [address]00565100[place], [place] [address] Dec, [place] [id number] [place] [address] 83618- 4812 Dec, Bipolar 1 disorder, depressed F31.9 ; PTSD (post-traumatic stress disorder) F43.10 and Panic attacks F41.0 [place] [id number] [place] [address] 63299- 3814 Nov, Bipolar disorder, in partial remission, most recent episode depressed F31.75 ; MESERET (generalized anxiety disorder) F41.1 and Panic disorder F41.0 [place] [id number] [place] [address] 16702- 0983 Nov, [id number] [place] [address] 25204- 6463 Nov, [place] [id number] [place] [address] 61422- 0908 Oct, BMI 45.0-49.9, adult Z68.42 ; Bipolar disorder, in partial remission, most recent episode depressed F31.75 ; MESERET (generalized anxiety disorder) F41.1 and Panic disorder F41.[address] [id number] [address] Oct, BMI 45.0-49.9, adult Z68.42 ; Coronary artery disease involving [place] coronary artery of [place] heart without angina pectoris I25.10 ; Hx of CABG Z95.1 ; Dyspnea on exertion R06.09 ; Essential hypertension I10 ; Mixed hyperlipidemia E78.2 ; Claudication I73.9 and Tobacco use Z72.0 [facility] [address] [id number] [id number] 15 Oct, 2017 BMI 45.0-49.9, adult Z68.42 ; Bipolar 1 disorder, depressed F31.9 and Abscess L02.91 [address] [place] [address] 96754- 3183 Oct, Bipolar 1 disorder, depressed F31.9 ; PTSD (post-traumatic stress disorder) F43.10 and Panic attacks F41.0 [place] [address] [place] [address] 94322- 8681 Sep, BMI 40.0-44.9, adult Z68.41 ; Mood disorder F39 ; MESERET ( generalized anxiety disorder) F41.1 and Panic disorder F41.0 [place] [address] [place] [id number] [place] [address] 83311- 3481 Sep, BMI 40.0-44.9, adult Z68.41 [place] [address] [place] [id number] [place] [address] 84087- 7172 Sep, Bipolar 1 disorder, depressed F31.9 ; PTSD (post-traumatic stress disorder) F43.10 and Panic attacks F41.0 [place] [address] [place] [id number] [place] [address] 93977- 4856 Aug, BMI 40.0-44.9, adult Z68.41 ; Mood disorder F39 ; MESERET ( generalized anxiety disorder) F41.1 and Panic disorder F41.0 [place] [id number] [place] [address] 31139- 1009 Aug, Bipolar 1 disorder, depressed F31.9 ; PTSD (post-traumatic stress disorder) F43.10 and Panic attacks F41.0 [facility] [address]00565100[place] [id number] Aug, [facility] [id number] [place] [address] [id number] Aug, COPD mixed type J44.9 [place] [address] [place] [id number] [place] [address] 58802- 9101 Aug, [place] [address] [place] [address] 76186- 0117 Jul, PTSD (post-traumatic stress disorder) F43.10 ; Panic disorder F41.0 ; MESERET (generalized anxiety disorder) F41.1 ; Mood disorder F39 and BMI 40.0-44.9, adult Z68.41 [facility] [address] [place] [id number] [address] Jul, Bipolar 1 disorder, depressed F31.9 ; PTSD (post-traumatic stress disorder) F43.10 and Panic attacks F41.0 [address]00565100[place] [address] Jul, Bipolar 1 disorder, depressed F31.9 [address]00565100[place] [address] Jul, Anxiety F41.9 ; COPD mixed type J44.9 ; Essential hypertension I10 ; Bipolar 1 disorder F31.9 ; High risk medication use Z79.899 ; BMI 40.0-44.9, adult Z68.41 and Coronary artery disease involving coronary bypass graft of [place] heart without angina pectoris I25.810 [place] [id number] [address] Jul, Chronic obstructive pulmonary disease with acute exacerbation J44.1 and Acute nasopharyngitis J00 [place] [id number] [address] Jul, Anxiety F41.9 ; Mixed hyperlipidemia E78.2 and Bipolar 1 disorder F31.9 [facility] [address] [id number] [place] [address] Jun Bipolar 1 disorder F31.9 [facility] [address] [id number] [place] [address] Jun [place] [id number] [address] Jun, Anxiety F41.9 ; Elevated blood sugar R73.9 ; Mixed hyperlipidemia E78.2 ; COPD mixed type J44.9 ; Essential hypertension I10 ; Bipolar 1 disorder F31.9 ; Coronary artery disease involving coronary bypass graft of [place] heart without angina pectoris I25.810 ; High risk medication use Z79.899 ; Controlled substance agreement signed Z79.899 ; Elevated fasting glucose R73.01 ; Encounter for immunization Z23 and BMI 40.0-44.9, adult Z68.41 [facility] [address] [address] [id number] [address] Jun, Elevated blood sugar R73.9 [facility] [id number] [address] Jun, [facility] [address] [place] [address] [id number] [id number] Jun, Bipolar 1 disorder F31.9 ; Obesity (BMI 30-39.9) E66.9 ; Coronary artery disease involving coronary bypass graft of [place] heart without angina pectoris I25.810 and Essential hypertension I10 [address] [place] [address] [id number] Jun, Coronary artery disease involving coronary bypass graft of [place] heart without angina pectoris I25.810 ; Bipolar 1 disorder F31.9 ; Anxiety F41.9 ; Essential hypertension I10 ; COPD mixed type J44.9 and Mixed hyperlipidemia E78.2 [place] [id number] [address] May, Severe single current episode of major depressive disorder, 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.2 ; Bipolar 1 disorder F31.9 ; Anxiety F41.9 ; PTSD (post -traumatic stress disorder) F43.10 ; Coronary artery disease involving coronary bypass graft of [place] heart without angina pectoris I25.810 ; Sleep apnea in adult G47.30 ; Essential hypertension I10 ; High risk medication use Z79.899 ; Obesity (BMI 30-39.9) E66.9 ; Encounter for therapeutic drug level monitoring Z51.81 and COPD mixed type J44.9 [place] [id number] [address] May, Severe single current episode of major depressive disorder, 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.2 ; Bipolar 1 disorder F31.9 ; Anxiety F41.9 ; PTSD (post -traumatic stress disorder) F43.10 ; Mixed hyperlipidemia E78.2 ; Coronary artery disease involving coronary bypass graft of [place] heart without angina pectoris I25.810 ; Sleep apnea in adult G47.30 ; Essential hypertension I10 ; High risk medication use Z79.899 ; Controlled substance agreement signed Z79.899 ; Obesity (BMI 30-39.9) E66.9 ; Tobacco abuse Z72.0 ; Tobacco abuse counseling Z71.6 and COPD mixed type J44.9 [facility] [id number] [place] [address] [id number] May, [facility] [address] [place] [id number] [place] [address] 37942- 2286 Dec, [facility] [id number] [place] [address] 964207- 4697 Dec, [facility] [id number] [place] [address] 63006- 4665 May, [facility] [address] [id number] [place] [address] 94734- 4708 May, [facility] [id number] [place] [address] [id number] Dec, [facility] [address] [place] [address] [id number] [place] [address] 73705- 6447 Dec, [facility] [id number] [place] [address] [id number] Dec, [facility] [address] [place] [id number] [place] [address] 498029- 1914 Dec, [facility] [address] [place] [address] [id number] [place] [address] 92095- 7247 Dec, [facility] [address] [place] [id number] [place] [address] 75259- 6126 Dec, [facility] [address] [place] [id number] [place] [address] 81970- 9834 Nov, [facility] [id number] [place] [address] [id number] Nov, [facility] [id number] [address] Nov, [facility] [id number] [place] [address] [id number] Nov, [facility] [place] [facility] [address] [id number] [place] [address]- 5436 17 Nov, 2013 [facility] [place] [facility] [address] [facility] [id number] [place] [address]- 5734 Nov, [facility] [place] [facility] [address] [facility] [id number] [place] [address]- 1786 Nov, [facility] [place] [facility] [address] [facility] [id number] [place] [address]- 6479 Nov, [facility] [place] [facility] [address] [facility] [id number] [place] [address]- 0153 Nov, [facility] [place] [facility] [address] [id number] [place] [address]- 0534 Nov, [facility] [address] [facility] [id number][place] [id number] Nov, [facility] [address] [place] [id number] [id number] Oct, [facility] [place] [facility] [address] [facility] [id number], [place] [address]- 8206 Oct, [facility] [address] [facility] [id number][place] [id number] Oct, [facility] [place] [facility] [address] [id number][place] [address]- 5886 Oct, [facility] [place] [facility] [address] [facility] [id number], [place] [address] 2546 Oct, [facility] [address] [facility] [id number][place] [id number] Sep, [facility] [place] [facility] [address] [facility] [id number] [place] [address]- 7636 Sep, [facility] [address] [facility] [id number], [place] [id number] Sep, [facility] [place] [facility] [address] [facility] [id number] [place] [address] 2546 Sep, [facility] [place] [facility] [address] [facility] [id number][place] [address]- 6246 Sep, [facility] [address] [facility] [id number], [place] [address]- 4800 Sep, [facility] [place] [facility] [address] [facility] [id number][place] [address]- 7216 Aug, [facility] [address] [facility] [id number] [place] [id number] Aug, [facility] [place] [facility] [address] [id number] [address]- 9369 Aug, [facility] [address] [facility] [id number] [place] [id number] Jul, [facility] [place] [facility] [address] [facility] [id number] [address]- 7171 Jul, [facility] [address] [place] [id number], [place] [id number] Jul, [facility] [place] [facility] [address]00565100[place], [place] [address]- 7986 Jul, [facility] [place] [facility] [address] [facility] [id number][place] [address]- 6105 May, [facility] [place] [facility] [address] [facility] [id number] [address]- 9688 Apr, [facility] [place] [facility] [address] [place] [id number], [place] [address]- 3796 Apr, [facility] [place] [facility] [address] [id number] [address]- 1367 Mar, [facility] [address] [id number] [place] [id number] Feb, [facility] [address] [id number] [place] [id number] Feb, [facility] [address] [facility] [id number] [place] [id number] Feb, [facility] [place] [facility] [address] [facility] [id number][place] [address]- 2546 Feb, [facility] [place] [facility] [address] [facility] [id number] [address]- 2648 January, [facility] [address] [facility] [id number][place] [address]- 2546 January, [facility] [address] [id number] [place] [address] Dec, [facility] [address] [id number] [place] [id number] Dec, [facility] [address] [id number] [place] [id number] Dec, [facility] [address] [id number] [place] [id number] Dec, [facility] [address] [id number] [place] [address]2112[address] Dec, [facility] [address] [id number] [place] [id number] Dec, [facility] [address] [id number], [place] [address]- 2546 Dec, [facility] [address] [facility] [id number], [place] [address]- 2543 Dec, [facility] [address] [id number] [place] 1742[address] Nov, [facility] [address] [id number], [place] [id number] Nov, [facility] [address] [facility] [id number], [place] [address]57 Nov, [facility] [address]00565100[place], [place] [address]- 3446 Oct, [facility] [place] [facility] [address] [facility] [id number] [address]- 0170 Oct, [facility] [place] [facility] [address] [facility] [id number], [place] [address]- 5526 Sep, [facility] [address]00565100[place], [place] [address]- 8333 Aug, [facility] [place] [facility] [address] [id number] [place] [address]- 0616 Aug, [facility] [place] [facility] [address] [id number] [place] [address]- 5696 Aug, [facility] [place] [facility] [address] [id number] [place] [address]- 1516 Aug, [facility] [address] [facility] [id number], [place] [id number] Aug, [facility] [place] [facility] [address] [id number] [place] [address] 2546 Aug, [facility] [place] [facility] [address] [id number] [place] [address]- 1616 Jul, [facility] [place] [facility] [address] [id number] [place] [address]- 5286 Jul, [facility] [place] [facility] [address] [facility] [id number] [place] [address]- 2546 Jul, [facility] [address] [facility] [id number], [place] [address]- 2546 Jul, [facility] [address] [id number], [place] [id number] Jun, [facility] [address] [facility] [id number], [place] [id number] Jun, [facility] [place] [facility] [address] [facility] [id number], [place] [address]- 2546 Jun, [facility] [address] [id number], [place] [id number] Apr, [facility] [place] [facility] [address] [facility] [id number], [place] [address]- 2546 Apr, [facility] [place] [facility] [address] [facility] [id number][place] [address]- 2546 Mar, [facility] [address] [id number], [place] [id number] Feb, [facility] [address] [facility] [id number], [place] [id number] Feb, [facility] [place] [facility] [address] [facility] [id number], [place] [address]- 8461 Feb, [facility] [address] [id number], [place] [id number] Feb, [facility] [place] [facility] [address] [facility] [id number], [place] [address]- 1590 Feb, [facility] [place] [facility] [address] [facility] [id number] [address]- 7115 Feb, [facility] [place] [facility] [address] [facility] [id number][place] [address]- 7596 Feb, [facility] [place] [facility] [address] [id number], [place] [address]- 7268 Feb, [facility] [address] [id number], [place] [id number] January, [facility] [address] [id number], [place] [id number] Dec, [facility] [place] [facility] [address] [id number][place] [address]- 0058 Dec, [facility] [place] [facility] [address] [id number], [place] [address]- 7526 Dec, [facility] [address] [id number], [place] 180156473 Dec, [facility] [place] [facility] [address] [facility] [id number], [place] [address]- 2546 Dec, [facility] [address] [id number], [place] [id number] Dec, [facility] [address] [id number] [place] [id number] 30 Nov, 2011 [facility] [address] [id number], [place] 396803183 Nov, [facility] [address] [id number], [place] 223913993 Nov, [facility] [address] [id number] [place] [id number] Nov, [facility] [address] [id number], [place] [address]- 1896 Oct, [facility] [address] [id number] [place] [id number] Oct, [facility] [address] [id number] [place] [id number] Oct, [facility] [address] [id number] [place] [id number] Oct, [facility] [address] [id number] [place] [id number] Oct, [facility] [address] [id number] [place] [id number] Sep, [facility] [address] [id number] [place] [address]486285[address] Sep, [facility] [address]00565100[place], [place] [address]- 7536 Sep, [facility] [address]00565100[place], [place] [address]- 5017 Sep, [facility] [place] [facility] [id number] [place] [address] 75218- 6242 Sep, [facility] [address]00565100[place], [place] [address]- 5835 Sep, [facility] [address]00565100[place], [place] [address]- 0825 Aug, [facility] [place] [facility] [address]00565100[place], [place] [address]- 1825 Aug, [facility] [place] [facility] [address]00565100[place], [place] [address]- 6316 Aug, [facility] [place] [facility] [address]00565100[place], [place] [address]- 9112 Aug, [facility] [address]00565100[place], [place] [address]- 1814 Aug, [facility] [place] [facility] [address] [id number] [place] [address]- 3755 Aug, [facility] [place] [facility] [address] [id number] [place] [address]- 2293 Aug, [facility] [place] [facility] [address] [id number] [place]- 5753 Aug, [facility] [place] [facility] [address] [id number] [place] [address] Jun, [facility] [place] [facility] [address] [id number] [place] [address] Jun, [facility] [place] [facility] [address] [id number] [place] [address] Jun, [facility] [place] [facility] [address] [id number] [place] [address] Jun, [facility] [place] [facility] [address] [id number] [place] [address] 14 Jun, 2011 [facility] [place] [facility] [address] [id number] [place] [address] Jun, [facility] [place] [facility] [address] [id number] [place] [address] Jun, [facility] [place] [facility] [address] [id number] [place] [address] Jun, [facility] [place] [facility] [address] [id number], [place] [address] Jun, [facility] [place] [facility] [address] [id number] [place] [address] 14 May, 2011 [facility] [place] [facility] [address] [id number] [place] [address] Apr, [facility] [place] [facility] [address] [id number], [place] [address] 16 Feb, 2011 [facility] [place] [facility] [address] [id number], [place] [address] Dec, [facility] [address] [id number] [address] [address] Aug, [facility] [id number], [place] [address] Aug, [facility] [id number], [place] [address] Aug, [facility] [id number], [place] [address] Aug, [facility] [id number], [place] [address] Jul, [facility] [id number] [address] [address] Jun, [facility] [id number], [place] [address] Jun, IMMUNIZATIONS No Known Immunizations SOCIAL HISTORY Never Assessed REASON FOR VISIT [facility] Updated PLAN OF CARE VITAL SIGNS MEDICATIONS Unknown [...] of unspecified type of vessel, [place] or graft Medical History Coronary atherosclerosis of unspecified type of vessel, [place] or graft Surgical History section x4 Surgical History CABG x3 Surgical History Left arm-Plate and screws placed Hospitalization History Surgery(s)/Childbirth(s) only
--- OUTSIDE RECORDS SUMMARY | 2019-02-02 14:08 | XMS REPORT ---
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.810 Active 718962863 Problem Chronic obstructive pulmonary disease with acute exacerbation J44.1 Active 972142833 Problem Mixed hyperlipidemia E78.2 Active 677487918 Problem Bipolar disorder, in partial remission, most recent episode depressed F31.75 Active 99221058 Problem Claudication I73.9 Active 300137369 Problem MESERET (generalized anxiety disorder) F41.1 Active 70410126 Problem Panic disorder F41.0 Active 124002310 Problem 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.10 Active 2351310315528 Problem Mood disorder F39 Active 21648810 Problem Obesity (BMI 30-39.9) E66.9 Active 886854860 Problem Bipolar 1 disorder F31.9 Active 780053856 Problem PTSD (post-traumatic stress disorder) F43.10 Active 56531217 Problem Sleep apnea in adult G47.30 Active 85837264 Problem Essential hypertension I10 Active 05194157 Problem COPD mixed type J44.9 Active 81946440 ALLERGIES No Information ENCOUNTERS Encounter Location Date Diagnosis [facility] [address] [id number] [address] Feb, [facility] [address] [address] Feb, [facility] [address] [address] Feb, High risk medication use Z79.899 [facility] [address] [id number] [address] January, High risk medication use Z79.899 ; Bipolar disorder, in partial remission, most recent episode depressed F31.75 ; MESERET (generalized anxiety disorder) F41.1 ; Panic disorder F41.0 and BMI 45.0-49.9, adult Z68.42 [id number] [place] [address] 27361- 5306 January, Bipolar 1 disorder, depressed F31.9 ; PTSD (post-traumatic stress disorder) F43.10 and Panic attacks F41.0 [address] [place] [id number] [place] [address] 15942- 1942 January, Bipolar 1 disorder, depressed F31.9 ; PTSD (post-traumatic stress disorder) F43.10 and Panic attacks F41.0 [address] [place] [id number] [place] [address] 18548- 7843 Dec, BMI 45.0-49.9, adult Z68.42 ; Bipolar disorder, in partial remission, most recent episode depressed F31.75 ; MESERET (generalized anxiety disorder) F41.1 and Panic disorder F41.0 [address] [place] [id number] [place] [address] 72564- 3160 Dec, Bipolar 1 disorder, depressed F31.9 ; PTSD (post-traumatic stress disorder) F43.10 and Panic attacks F41.0 [address] [place] [id number] [place] [address] 98803- 5899 Nov, Bipolar disorder, in partial remission, most recent episode depressed F31.75 ; MESERET (generalized anxiety disorder) F41.1 and Panic disorder F41.0 [address] [place] [id number] [place] [address] 09499- 1646 Nov, [address] [id number] [place] [address] 81521- 2633 Nov, [place] [id number] [place] [address] 42065- 3049 Oct, BMI 45.0-49.9, adult Z68.42 ; Bipolar disorder, in partial remission, most recent episode depressed F31.75 ; MESERET (generalized anxiety disorder) F41.1 and Panic disorder F41.0 [facility] [address] [facility] [id number] [place] [id number] 23 Oct, 2017 BMI 45.0-49.9, adult Z68.42 ; 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.10 ; Hx of CABG Z95.1 ; Dyspnea on exertion R06.09 ; Essential hypertension I10 ; Mixed hyperlipidemia E78.2 ; Claudication I73.9 and Tobacco use Z72.0 [facility] [address] [facility] [id number] [id number] 15 Oct, 2017 BMI 45.0-49.9, adult Z68.42 ; Bipolar 1 disorder, depressed F31.9 and Abscess L02.91 [place] [address] [place] [address] 50751- 3747 14 Oct, 2017 Bipolar 1 disorder, depressed F31.9 ; PTSD (post-traumatic stress disorder) F43.10 and Panic attacks F41.0 [place] [place] [address] [place] [address] 69048- 0985 Sep, BMI 40.0-44.9, adult Z68.41 ; Mood disorder F39 ; MESERET ( generalized anxiety disorder) F41.1 and Panic disorder F41.0 [address] [place] [address] [place] [address] 90354- 8938 Sep, BMI 40.0-44.9, adult Z68.41 [facility] [address] [place] [address] 14792- 9393 Sep, Bipolar 1 disorder, depressed F31.9 ; PTSD (post-traumatic stress disorder) F43.10 and Panic attacks F41.0 [facility] [address] [place] [address] 02868- 4491 Aug, BMI 40.0-44.9, adult Z68.41 ; Mood disorder F39 ; MESERET ( generalized anxiety disorder) F41.1 and Panic disorder F41.0 [facility] [address] [place] [address] 37075- 8187 Aug, Bipolar 1 disorder, depressed F31.9 ; PTSD (post-traumatic stress disorder) F43.10 and Panic attacks F41.0 [facility] [id number] [place] [address] [id number] Aug, [facility] [id number] [place] [address] [id number] Aug, COPD mixed type J44.9 [facility] [id number] [place] [address] 20876- 1967 Aug, [facility] [id number] [place] [address] 62715- 1448 Jul, PTSD (post-traumatic stress disorder) F43.10 ; Panic disorder F41.0 ; MESERET (generalized anxiety disorder) F41.1 ; Mood disorder F39 and BMI 40.0-44.9, adult Z68.41 [facility] [address] [place] [address] 57089- 5101 Jul, Bipolar 1 disorder, depressed F31.9 ; PTSD (post-traumatic stress disorder) F43.10 and Panic attacks F41.0 [address] [place] [address] [id number] Jul, Bipolar 1 disorder, depressed F31.[address] [place] [address] [id number] Jul, Anxiety F41.9 ; COPD mixed type J44.9 ; Essential hypertension I10 ; Bipolar 1 disorder F31.9 ; High risk medication use Z79.899 ; BMI 40.0-44.9, adult Z68.41 and 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 without angina pectoris I25.810 [facility] [address] [place] [address] [id number] Jul, 2017 Chronic obstructive pulmonary disease with acute exacerbation J44.1 and Acute nasopharyngitis J00 [facility] [address] [facility] [id number] [id number] Jul, Anxiety F41.9 ; Mixed hyperlipidemia E78.2 and Bipolar 1 disorder F31.9 [facility] [address] [id number] [place] [address] Jun Bipolar 1 disorder F31.9 [facility] [address] [id number] [place] [address] Jun [facility] [address] [id number] [id number] Jun, Anxiety F41.9 ; Elevated blood sugar [...] immunization Z23 and BMI 40.0-44.9, adult Z68.41 [facility] [id number] [place] [address] [id number] Jun, Elevated blood sugar R73.9 [address] [place] [address] [id number] Jun, [address] [place] [address] [id number] Jun, Bipolar 1 disorder F31.9 ; Obesity (BMI 30-39.9) E66.9 ; 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 without angina pectoris I25.810 and Essential hypertension I10 [address] [address] [id number] [id number] Jun, 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 without angina pectoris I25.810 ; Bipolar 1 disorder F31.9 ; Anxiety F41.9 ; Essential hypertension I10 ; COPD mixed type J44.9 and Mixed hyperlipidemia E78.2 [facility] [address] [id number] [id number] May, Severe single current episode of major [...] monitoring Z51.81 and COPD mixed type J44.9 [id number] [place] [address] [id number] May, Severe single current episode of major [...] counseling Z71.6 and COPD mixed type J44.9 [id number] [place] [address] [id number] May, [facility] [id number] [place] [address] [id number]- 5549 Dec, [facility] [id number] [place] [address] 49083- 0599 Dec, [facility] [id number] [place] [address] 11668507- 9032 May, [facility] [id number] [place] [address] [id number]- 2972 May, [id number] [place] [address] [id number] Dec, [facility] [id number] [place] [address] 91568- 3548 Dec, [address] [place] [id number] Dec, [facility] [place] [facility] [address] [id number] [place] [address]- 2546 Dec, [facility] [place] [facility] [address] [facility] [id number] [place] [address]- 2546 Dec, [facility] [place] [facility] [address] [facility] [id number] [place] [address]- 2546 Dec, [facility] [place] [facility] [address] [facility] [id number] [place] [address]- 2546 Nov, [facility] [place] [address] [id number] [place] [id number] Nov, [facility] [place] [address] [id number] [place] [id number] Nov, [facility] [place] [address] [facility] [id number] [place] [id number] Nov, [facility] [place] [facility] [address] [facility] [id number] [address] 2546 Nov, [facility] [place] [facility] [address] [facility] [id number] [place] [address]- 6756 Nov, [facility] [place] [facility] [address] [facility] [id number] [address]- 9516 Nov, [facility] [place] [facility] [address] [facility] [id number] [address] 2546 15 Nov, 2013 [facility] [place] [facility] [address] [facility] [id number] [address]- 2546 Nov, [facility] [place] [facility] [address] [facility] [id number] [place] [address]- 2546 Nov, [facility] [place] [address] [id number] [place] [id number] Nov, [facility] [place] [address] [facility] [id number] [place] [id number] Oct, [facility] [place] [facility] [address] [facility] [id number] [place] [address]- 9994 Oct, [facility] [place] [address] [id number] [place] [id number] Oct, [facility] [place] [facility] [address] [facility] [id number] [place] [address]- 0706 Oct, [facility] [place] [facility] [address] [facility] [id number] [address]- 4526 Oct, [facility] [place] [address] [facility] [id number][place] [id number] Sep, [facility] [place] [facility] [address] [id number] [place] [address]- 9173 Sep, [facility] [place] [address] [facility] [id number][place] [id number] Sep, [facility] [place] [facility] [address] [id number] [address]- 1506 Sep, [facility] [place] [facility] [address] [id number] [address]- 0254 Sep, [facility] [place] [facility] [address] [facility] [id number] [address]- 5886 Sep, [facility] [place] [facility] [address] [id number] [address]- 1049 Aug, [facility] [place] [address] [id number] [id number] Aug, [facility] [place] [facility] [address] [id number] [address]- 1636 Aug, [facility] [place] [address] [facility] [id number][place] [id number] Jul, [facility] [place] [facility] [address] [id number] [address]- 4111 Jul, [facility] [place] [address] [facility] [id number][place] [id number] Jul, [facility] [place] [facility] [address] [id number] [address]- 5020 Jul, [facility] [place] [facility] [address] [facility] [id number] [address]- 0031 May, [facility] [address] [facility] [id number] [address]- 6986 Apr, [facility] [place] [facility] [address] [facility] [id number] [address] 2543 Apr, [facility] [address] [facility] [id number] [address]- 9340 Mar, [facility] [place] [address] [id number] [place] [id number] Feb, [facility] [place] [address] [id number] [place] [id number] Feb, [facility] [place] [address] [id number] [place] [id number] Feb, [facility] [address] [address]- 0305 Feb, [facility] [place] [facility] [address] [facility] [id number] [address]- 9563 January, [facility] [address] [id number] [address]- 3786 January, [facility] [place] [address] [id number] [place] [id number] Dec, [facility] [place] [address] [id number] [place] [id number] Dec, [facility] [place] [address] [id number], [place] [address] Dec, [facility] [place] [address] [id number] [place] [id number] Dec, [facility] [place] [address] [id number] [place] [id number] Dec, [facility] [place] [address] [id number] [place] [id number] Dec, [facility] [place] [facility] [address] [id number] [address]- 2546 Dec, [facility] [place] [facility] [address] [address]- 2546 Dec, [facility] [place] [address] [id number] [place] [address] Nov, [facility] [place] [address] [id number] [place] [id number] Nov, [facility] [place] [address] [facility] [id number] [place] [id number] Nov, [facility] [place] [facility] [address] [facility] [id number] [address] 2546 Oct, [facility] [place] [facility] [address] [facility] [id number] [place] [address]- 2546 Oct, [facility] [place] [facility] [address] [facility] [id number] [address]- 6326 Sep, [facility] [place] [facility] [address] [id number] [address]- 8466 Aug, [facility] [place] [facility] [address] [facility] [id number] [address]- 0851 Aug, [facility] [place] [facility] [address] [facility] [id number]- 6598 Aug, [facility] [place] [facility] [address] [facility] [id number] [place]- 8460 Aug, [facility] [place] [address] [facility] [id number], [place] [id number] Aug, [facility] [place] [facility] [address] [facility] [id number] [address]- 0112 Aug, [facility] [place] [facility] [address] [facility] [id number] [address]- 5516 Jul, [facility] [place] [facility] [address] [facility] [id number] [address]- 0356 Jul, [facility] [place] [facility] [address] [facility] [id number] [address]- 2016 Jul, [facility] [place] [facility] [address] [facility] [id number] [address]- 2546 Jul, [facility] [place] [address] [id number] [place] [id number] Jun, [facility] [address] [id number] [place] [id number] Jun, [facility] [place] [facility] [address] [facility] [id number] [place] [address]- 2546 Jun, [facility] [address] [facility] [id number] [place] [id number] Apr, [facility] [place] [facility] [address] [facility] [id number] [place] [address] 2546 Apr, [facility] [place] [facility] [address] [id number] [place] [address]- 2546 Mar, [facility] [id number] [place] [id number] Feb, [facility] [id number] [place] [id number] Feb, [facility] [place] [facility] [address]005[address]100[place] [address]- 7773 Feb, [facility] [id number], [place] [id number] Feb, [facility] [place] [facility] [address]005[address]100[place] [address]- 8436 Feb, [facility] [place] [facility] [address]005[address]100[place] [address]- 5051 Feb, [facility] [place] [facility] [address] [facility] [id number] [address]- 2546 Feb, [facility] [place] [facility] [address] [facility] [id number] [address]- 5044 Feb, [facility] [address] [facility] [id number] [place] [id number] January, [facility] [address] [id number] [place] [id number] Dec, [facility] [place] [facility] [address]00565100[place] [address]- 0224 Dec, [facility] [address] [facility] [id number] [place] [address] 17530- 1080 Dec, [facility] [place] [address] [id number] [place] [id number] Dec, [facility] [address] [facility] [id number] [address]- 5480 Dec, [facility] [address] [id number] [place] [id number] Dec, [facility] [address] [id number] [place] [address]69[address] Nov, [facility] [address] [id number] [place] [id number] Nov, [facility] [address] [id number] [place] [id number] Nov, [facility] [address] [id number] [place] [id number] Nov, [facility] [address]00565100[place] [address]- 5002 Oct, [facility] [address] [id number] [place] [id number] Oct, [facility] [address] [id number] [place] [id number] Oct, [facility] [address] [id number] [place] [id number] Oct, [facility] [address] [id number] [place] [id number] Oct, [facility] [address] [id number] [place] [id number] Sep, [facility] [address] [id number] [place] [id number] Sep, [facility] [address] [facility] [id number] [place] [address]- 8836 Sep, [facility] [address] [place] [address] 92825- 3093 Sep, [facility] [place] [facility] [address] [id number] [place] [address]- 0470 Sep, [facility] [place] [facility] [address] [id number] [place] [address]- 8507 Sep, [facility] [place] [facility] [address] [id number] [place] [address]- 4772 30 Aug, 2011 [facility] [place] [facility] [address] [id number] [place] [address]- 0056 Aug, [facility] [place] [facility] [address] [id number] [place] [address]- 4535 Aug, [facility] [place] [facility] [address] [id number] [place] [address]- 1938 Aug, [facility] [place] [facility] [address] [id number] [place] [address]- 8443 Aug, [facility] [place] [facility] [address] [id number] [place] [address]- 0943 Aug, [facility] [place] [facility] [address] [id number] [place] [address]- 7094 Aug, [facility] [place] [facility] [address] [id number] [place] [address]- 6908 Aug, [facility] [place] [facility] [address] [id number] [place] [address]- 3367 Jun, [facility] [place] [facility] [address] [id number] [address] 27 Jun, 2011 [facility] [place] [facility] [address] [id number] [place] [address] 19 Jun, 2011 [facility] [place] [facility] [address] [id number] [place] [address] 19 Jun, 2011 [facility] [place] [facility] [address] [id number] [place] [address] 14 Jun, 2011 [facility] [place] [facility] [address] [facility] [id number] [address] 13 Jun, 2011 [facility] [address] [facility] [id number] [address] Jun, [facility] [address] [facility] [id number] [place] [address] 12 Jun, 2011 [facility] [address] [facility] [id number] [address] 12 Jun, 2011 [facility] [address] [facility] [id number] [address] 14 May, 2011 [facility] [address] [facility] [id number] [place] [address] Apr, [facility] [address] [facility] [id number] [address] 16 Feb, 2011 [facility] [id number] [address] Dec, [facility] [address] [facility] [id number] [address] Aug, [facility] [id number] [address] Aug, [facility] [address] [id number] [address] 15 Aug, 2010 [facility] [id number] [address] Aug, [facility] [address] [id number] [address] Jul, [facility] [id number] [address] [address] Jun, [facility] [id number] [address] Jun, IMMUNIZATIONS No Known Immunizations SOCIAL HISTORY [...]
--- OUTSIDE RECORDS SUMMARY | 2019-02-02 14:08 | XMS REPORT ---
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 I25.810 Active 733589253 Problem Chronic obstructive pulmonary disease with acute exacerbation J44.1 Active 688402206 Problem Mixed hyperlipidemia E78.2 Active 726485496 Problem Bipolar disorder, in partial remission, most recent episode depressed F31.75 Active 43290097 Problem Claudication I73.9 Active 081869237 Problem MESERET (generalized anxiety disorder) F41.1 Active 39371327 Problem Panic disorder F41.0 Active 984554453 Problem Coronary artery disease involving cahuilla coronary artery of cahuilla heart without angina pectoris I25.10 Active 1498990288606 Problem Mood disorder F39 Active 78593520 Problem Obesity (BMI 30-39.9) E66.9 Active 211037890 Problem Bipolar 1 disorder F31.9 Active 094501321 Problem PTSD (post-traumatic stress disorder) F43.10 Active 00280722 Problem Sleep apnea in adult G47.30 Active 57874474 Problem Essential hypertension I10 Active 61994379 Problem COPD mixed type J44.9 Active 81696180 ALLERGIES No Information ENCOUNTERS Encounter Location Date Diagnosis [facility] [address] [id number] [id number] Feb, [facility] [address] [facility] [id number] [address] [address] January, [facility] [address] [facility] [id number], [place] [address] January, [facility] [address] [facility] [id number] [place] [address] 95252- 7677 January, Bipolar 1 disorder, depressed F31.9 ; PTSD (post-traumatic stress disorder) F43.10 and Panic attacks F41.0 [facility] [address] [place] [address]18- 9609 Dec, BMI 45.0-49.9, adult Z68.42 ; Bipolar disorder, in partial remission, most recent episode depressed F31.75 ; MESERET (generalized anxiety disorder) F41.1 and Panic disorder F41.0 [facility] [address] [place] [address] 64168- 0757 Dec, Bipolar 1 disorder, depressed F31.9 ; PTSD (post-traumatic stress disorder) F43.10 and Panic attacks F41.0 [facility] [address]65[address] [address] Nov, Bipolar disorder, in partial remission, most recent episode depressed F31.75 ; MESERET (generalized anxiety disorder) F41.1 and Panic disorder F41.0 [facility] [address]00565[address], [place] [address] Nov, [facility] [id number] [place] [address] 70211- 3021 Nov, [facility] [address] [place] [address] 62593- 8420 Oct, BMI 45.0-49.9, adult Z68.42 ; Bipolar disorder, in partial remission, most recent episode depressed F31.75 ; MESERET (generalized anxiety disorder) F41.1 and Panic disorder F41.0 [place] [address] [facility] [address] [id number] [id number] Oct, BMI 45.0-49.9, adult Z68.42 ; Coronary artery disease involving cahuilla coronary artery of cahuilla heart without angina pectoris I25.10 ; Hx of CABG Z95.1 ; Dyspnea on exertion R06.09 ; Essential hypertension I10 ; Mixed hyperlipidemia E78.2 ; Claudication I73.9 and Tobacco use Z72.0 [facility] [id number] [id number] 15 Oct, 2017 BMI 45.0-49.9, adult Z68.42 ; Bipolar 1 disorder, depressed F31.9 and Abscess L02.91 [facility] [address]65[address] [address] 14 Oct, 2017 Bipolar 1 disorder, depressed F31.9 ; PTSD (post-traumatic stress disorder) F43.10 and Panic attacks F41.0 [place] [address] [place] [address]4898- 0670 Sep, BMI 40.0-44.9, adult Z68.41 ; Mood disorder F39 ; MESERET ( generalized anxiety disorder) F41.1 and Panic disorder F41.0 [place] [id number] [place] [address] 51756- 0643 Sep, BMI 40.0-44.9, adult Z68.41 [place] [id number] [place] [address] 18712- 9006 Sep, Bipolar 1 disorder, depressed F31.9 ; PTSD (post-traumatic stress disorder) F43.10 and Panic attacks F41.0 [place] [address] [place] [address] 28726- 3583 Aug, BMI 40.0-44.9, adult Z68.41 ; Mood disorder F39 ; MESERET ( generalized anxiety disorder) F41.1 and Panic disorder F41.0 [place] [address]00565100[place], [place] [address] 6[address] Aug, Bipolar 1 disorder, depressed F31.9 ; PTSD (post-traumatic stress disorder) F43.10 and Panic attacks F41.0 [facility] [id number] [place] [id number] Aug, [facility] [id number] [place] [address] Aug, COPD mixed type J44.9 [place] [address] [id number], [place] [address] Aug, [facility] [address] [place] [address] 07523- 8950 Jul, PTSD (post-traumatic stress disorder) F43.10 ; Panic disorder F41.0 ; MESERET (generalized anxiety disorder) F41.1 ; Mood disorder F39 and BMI 40.0-44.9, adult Z68.41 [facility] [address]00565100[place], [place] [address] Jul, Bipolar 1 disorder, depressed F31.9 ; PTSD (post-traumatic stress disorder) F43.10 and Panic attacks F41.0 [address] [place] [address] [id number] Jul, Bipolar 1 disorder, depressed F31.[address] [place] [address] [id number] Jul, Anxiety F41.9 ; COPD mixed type J44.9 ; Essential hypertension I10 ; Bipolar 1 disorder F31.9 ; High risk medication use Z79.899 ; BMI 40.0-44.9, adult Z68.41 and 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 pectoris I25.[address] [place] [address] [id number] Jul, Chronic obstructive pulmonary disease with acute exacerbation J44.1 and Acute nasopharyngitis J00 [address] [place] [address] [id number] Jul, Anxiety F41.9 ; Mixed hyperlipidemia E78.2 and Bipolar 1 disorder F31.9 [facility] [address] [id number] [place] [address] Jun Bipolar 1 disorder F31.9 [facility] [address] [id number] [place] [address] Jun [place] [id number] [address] Jun, Anxiety F41.9 ; Elevated blood sugar R73.9 ; Mixed hyperlipidemia E78.2 ; COPD mixed type J44.9 ; Essential hypertension I10 ; Bipolar 1 disorder F31.9 ; 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 pectoris I25.810 ; High risk medication use Z79.899 ; Controlled substance agreement signed Z79.899 ; Elevated fasting glucose R73.01 ; Encounter for immunization Z23 and BMI 40.0-44.9, adult Z68.41 [facility] [id number] [place] [address] [id number] Jun, Elevated blood sugar R73.9 [facility] [id number] [place] [address] [id number] Jun, [facility] [id number] [place] [address] [id number] Jun, Bipolar 1 disorder F31.9 ; Obesity (BMI 30-39.9) E66.9 ; 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2 ; Bipolar 1 disorder F31.9 ; Anxiety F41.9 ; PTSD (post -traumatic stress disorder) F43.10 ; 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 pectoris I25.810 ; Sleep apnea in adult G47.30 ; Essential hypertension I10 ; High risk medication use Z79.899 ; Obesity (BMI 30-39.9) E66.9 ; Encounter for therapeutic drug level monitoring Z51.81 and COPD mixed type J44.9 [facility] [id number] [place] [address] [id number] May, Severe single current episode of major depressive disorder, 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.2 ; Bipolar 1 disorder F31.9 ; Anxiety F41.9 ; PTSD (post -traumatic stress disorder) F43.10 ; Mixed hyperlipidemia E78.2 ; 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 pectoris I25.810 ; Sleep apnea in adult G47.30 ; Essential hypertension I10 ; High risk medication use Z79.899 ; Controlled substance agreement signed Z79.899 ; Obesity (BMI 30-39.9) E66.9 ; Tobacco abuse Z72.0 ; Tobacco abuse counseling Z71.6 and COPD mixed type J44.9 [facility] [id number] [place] [address] [id number] May, [facility] [address] [id number]- 6511 Dec, [facility] [id number] [place] [address] 46730- 0382 Dec, [facility] [id number] [place] [address] 82975- 4090 May, [facility] [id number] [place] [address] 93311- 1303 May, [facility] [id number] [place] [address] [id number] Dec, [facility] [id number] [place] [address] 59021- 5869 Dec, [facility] [id number] [place] [address] [id number] Dec, [facility] [id number] [place] [address] [id number]- 6443 Dec, [facility] [id number] [place] [address] 819608- 8967 Dec, [facility] [id number] [place] [address] [id number]- 4048 Dec, [facility] [id number] [place] [address] [id number]- 9054 Nov, [facility] [address] [id number] [id number] 17 Nov, 2013 [facility] [address] [id number] [place] [id number] Nov, [facility] [address] [id number] [place] [id number] Nov, [facility] [place] [facility] [address] [facility] [id number] [place] [address] 2546 Nov, [facility] [place] [facility] [address] [facility] [id number] [place] [address] 2546 Nov, [facility] [place] [facility] [address] [facility] [id number] [place] [address]- 6576 Nov, [facility] [place] [facility] [address] [facility] [id number], [place] [address]- 4356 Nov, [facility] [place] [facility] [address] [id number], [place] [address]- 0035 Nov, [facility] [place] [facility] [address] [facility] [id number], [place] [address]- 1726 Nov, [facility] [address] [facility] [id number] [place] [id number] Nov, [facility] [address] [facility] [id number] [place] [id number] Oct, [facility] [place] [facility] [address] [id number], [place] [address]- 2546 Oct, [facility] [address] [facility] [id number] [place] [id number] Oct, [facility] [place] [facility] [address] [facility] [id number], [place] [address]- 2716 Oct, [facility] [place] [facility] [address] [facility] [id number][place] [address]- 2546 Oct, [facility] [address] [facility] [id number] [place] [id number] Sep, [facility] [place] [facility] [address] [id number], [place] [address]- 7867 Sep, [facility] [address] [id number] [place] [id number] Sep, [facility] [place] [facility] [address] [facility] [id number] [place] [address]- 2546 Sep, [facility] [place] [facility] [address] [facility] [id number] [place] [address]- 2546 Sep, [facility] [place] [facility] [address] [facility] [id number] [place] [address]- 2546 Sep, [facility] [place] [facility] [address] [facility] [id number] [place] [address]- 2546 Aug, [facility] [address] [id number] [place] [id number] Aug, [facility] [address] [place] [address]- 2546 Aug, [facility] [address] [id number] [place] [id number] Jul, [facility] [address] [facility] [id number], [place] [address]- 2546 Jul, [facility] [address] [id number] [place] [id number] Jul, [facility] [address] [facility] [id number], [place] [address]- 2546 Jul, [facility] [place] [facility] [address] [id number] [address]- 2546 May, [facility] [place] [facility] [address] [facility] [id number][place] [address]- 2546 Apr, [facility] [place] [facility] [address] [facility] [id number], [place] [address]- 2546 Apr, [facility] [place] [facility] [address] [facility] [id number], [place] [address]- 2546 Mar, [facility] [address] [facility] [id number] [place]ALLS[place] [id number] Feb, [facility] [address] [id number] [place] [id number] Feb, [facility] [address] [id number] [place] [address]1983[address] Feb, [facility] [address] [facility] [id number], [place] [address]- 5716 Feb, [facility] [address] [facility] [id number][place] [address]- 2592 January, [facility] [address] [facility] [id number][place] [address]- 1243 January, [facility] [address] [id number] [place] [id number] Dec, [facility] [address] [id number] [place] [address] Dec, [facility] [address] [id number] [place] [id number] Dec, [facility] [address] [id number] [place] [id number] Dec, [facility] [address] [id number] [place] 4200464[address] Dec, [facility] [address] [id number] [place] [id number] Dec, [facility] [address]00565100[place], [place] [address]- 6163 Dec, [facility] [address] [facility] [id number], [place] [address]- 7673 Dec, [facility] [address] [id number] [place]ALL[place] [id number] Nov, [facility] [address] [id number] [place] [id number] Nov, [facility] [address] [facility] [id number] [place] [id number] Nov, [facility] [address]65[address] [address]- 5209 Oct, [facility] [address] [id number], [place] [address]- 2546 Oct, [facility] [address] [id number] [place] [address]- 2546 Sep, [facility] [place] [facility] [address] [facility] [id number], [place] [address]- 8196 Aug, [facility] [place] [facility] [address] [facility] [id number] [place] [address]- 2546 Aug, [facility] [place] [facility] [address] [facility] [id number], [place] [address]- 2546 Aug, [facility] [place] [facility] [address] [facility] [id number][place] [address]- 1296 Aug, [facility] [address] [facility] [id number] [place] [address] Aug, [facility] [place] [facility] [address]65[address], [place] [address]- 5506 Aug, [facility] [place] [facility] [address] [facility] [id number], [place] [address]- 2036 Jul, [facility] [place] [facility] [address] [facility] [id number], [place] [address]- 6286 Jul, [facility] [place] [facility] [address] [facility] [id number], [place] [address]- 2546 Jul, [facility] [address] [facility] [id number], [place] [address]- 2546 Jul, [facility] [address] [facility] [id number] [place]ALLS[place] [id number] Jun, [facility] [address] [facility] [id number] [place] [id number] Jun, [facility] [place] [facility] [address] [facility] [id number], [place] [address]- 2546 Jun, [facility] [address] [facility] [id number] [place] [id number] Apr, [facility] [place] [facility] [address] [facility] [id number], [place] [address]- 2546 Apr, [facility] [place] [facility] [address] [id number], [place] [address]- 4026 Mar, [facility] [address] [id number] [place] [id number] Feb, [facility] [address] [id number] [place] [id number] Feb, [facility] [place] [facility] [address] [facility] [id number], [place] [address]- 8886 Feb, [facility] [address] [id number] [place] 957887968 Feb, [facility] [place] [facility] [address] [facility] [id number], [place] [address]- 1796 Feb, [facility] [place] [facility] [address] [facility] [id number], [place] [address]- 4836 Feb, [facility] [place] [facility] [address] [id number] [address]- 3036 Feb, [facility] [place] [facility] [address] [facility] [id number], [place] [address]- 6806 Feb, [facility] [address] [id number] [place]ALL[place] 706[address] January, [facility] [address] [id number] [place] [id number] Dec, [facility] [place] [facility] [address] [facility] [id number], [place] [address]- 3516 Dec, [facility] [place] [facility] [address] [facility] [id number][place] [address]- 2546 Dec, [facility] [address] [id number] [place] [id number] Dec, [facility] [place] [facility] [address] [facility] [id number], [place] [address]- 2546 Dec, [facility] [address] [id number] [place] [id number] Dec, [facility] [address] [id number] [place] 9489749[address] Nov, [facility] [address] [id number] [place] [address] Nov, [facility] [address] [id number] [place] [address]326485[place] Nov, [facility] [address] [id number] [place] [id number] Nov, [facility] [address] [facility] [id number], [place] [address]- 2546 Oct, [facility] [address] [id number] [place] 829274491 Oct, [facility] [address] [id number] [place] [id number] Oct, [facility] [address] [id number] [place] [id number] Oct, [facility] [address] [id number] [place] 8843057[address] Oct, [facility] [address] [id number] [place] [address] Sep, [facility] [address] [id number] [place] [id number] Sep, [facility] [place] [facility] [address]00565100[place]- 7449 Sep, [facility] [place] [facility] [address]00565100[place], [place] [address]- 6787 Sep, [facility] [place] [facility] [address]00565100[place], [place] [address]- 5856 Sep, [facility] [place] [facility] [address] [facility] [id number], [place] [address]- 5547 Sep, [facility] [place] [facility] [address]00565100[place], [place] [address]- 0873 Aug, [facility] [place] [facility] [address]00565100[place], [place] [address]- 7242 Aug, [facility] [place] [facility] [address] [id number] [place] [address]- 8670 Aug, [facility] [place] [facility] [address] [id number] [place] [address] Aug, [facility] [place] [facility] [address] [id number] [place] [address] Aug, [facility] [place] [facility] [address] [id number] [place] [address] Aug, [facility] [place] [facility] [address] [id number] [place] [address] Aug, [facility] [place] [facility] [address] [id number] [place] [address] Aug, [facility] [place] [facility] [address] [id number] [place] [address] Jun, [facility] [place] [facility] [address] [id number] [place] [address] 27 Jun, 2011 [facility] [place] [facility] [address] [id number] [place] [address] Jun, [facility] [place] [facility] [address] [id number] [place] [address] 19 Jun, 2011 [facility] [place] [facility] [address] [id number] [place] [address] 14 Jun, 2011 [facility] [place] [facility] [address] [id number] [place] [address] 13 Jun, 2011 [facility] [place] [facility] [address] [id number] [address] 12 Jun, 2011 [facility] [place] [facility] [address] [id number] [place] [address] 12 Jun, 2011 [facility] [place] [facility] [address] [id number], [place] [address] 12 Jun, 2011 [facility] [place] [facility] [address] [id number], [place] [address] 14 May, 2011 [facility] [place] [facility] [address] [id number] [address] Apr, [facility] [id number] [address] Feb, [facility] [id number], [place] [address] Dec, [facility] [id number], [place] [address] Aug, [facility] [id number], [place] [address] Aug, [facility] [id number] [address] Aug, [facility] [id number] [address] Aug, [facility] [id number], [place] [address] Jul, [facility] [id number], [place] [address] Jun, [facility] [id number], [place] [address] Jun, IMMUNIZATIONS No Known Immunizations SOCIAL HISTORY Never Assessed REASON FOR VISIT Refill request PLAN OF CARE VITAL SIGNS MEDICATIONS Medication Instructions Dosage Frequency Start Date End Date Duration Status Atorvastatin Calcium 40 mg Orally Once a day 1 tablet 24h 0 days Active Symbicort 160-4.5 MCG/ACT Inhalation Twice a day 2 puffs 12h 0 days Active Albuterol Sulfate (2.5 MG/3ML) 0.083% Inhalation Three times a day 3 ml 8h 0 days Active Alprazolam 0.5 MG Orally 2 times per day, must last 1 month 1 tablet 0 days Active Ventolin HFA 108 (90 Base) MCG/ACT Inhalation every 4 hrs 2 puffs as needed 4h 0 days Active Losartan Potassium-HCTZ 50-12.5 MG Orally twice a day 1 tablet 12h 0 days Active [place] Carbonate 300 MG Orally 2 times a day 2 capsules 12h 0 days Active Aspir-81 81 MG Orally Once a day 1 tablet 24h 0 days Active Gabapentin 400 mg Orally Three times a day 2 capsules 8h 0 days Active RESULTS No Results PROCEDURES No [...] Coronary atherosclerosis of unspecified type of vessel, [place] or graft Medical History Coronary atherosclerosis of unspecified type of vessel, [place] or graft Surgical History section x4 Surgical History CABG x3 Surgical History Left arm-Plate and screws placed Hospitalization History Surgery(s)/Childbirth(s) only
--- OUTSIDE RECORDS SUMMARY | 2019-02-02 14:09 | XMS REPORT ---
Author Author ЕКАТЕРИНА MTZ [facility] Address [address] [place] [address] Care Team Providers Care Method Consultant Name Role Phone ЕКАТЕРИНА MTZ Unavailable PROBLEMS Type Condition ICD9-CM Code MTT63-JB Code Onset Dates Condition Status SNOMED Code Problem Coronary artery disease involving coronary bypass graft of ugashik heart without angina pectoris I25.810 Active 185788719 Problem Chronic obstructive pulmonary disease with acute exacerbation J44.1 Active 160822529 Problem Mixed hyperlipidemia E78.2 Active 242251691 Problem Bipolar disorder, in partial remission, most recent episode depressed F31.75 Active 40868112 Problem Claudication I73.9 Active 878495326 Problem MESERET (generalized anxiety disorder) F41.1 Active 93369116 Problem Panic disorder F41.0 Active 901090958 Problem Coronary artery disease involving ugashik coronary artery of ugashik heart without angina pectoris I25.10 Active 0974325287639 Problem Mood disorder F39 Active 00970996 Problem Obesity (BMI 30-39.9) E66.9 Active 231087351 Problem Bipolar 1 disorder F31.9 Active 174061303 Problem PTSD (post-traumatic stress disorder) F43.10 Active 87500020 Problem Sleep apnea in adult G47.30 Active 46424455 Problem Essential hypertension I10 Active 33921208 Problem COPD mixed type J44.9 Active 90054189 ALLERGIES No Information ENCOUNTERS Encounter Location Date Diagnosis [facility] [address] [id number] [id number] Feb, [facility] [address] [facility] [id number] [place] [address] January, [facility] [address] [facility] [id number] [place] [address] January, [facility] [address] [facility] [id number] [place] [address] 25849- 7053 January, Bipolar 1 disorder, depressed F31.9 ; PTSD (post-traumatic stress disorder) F43.10 and Panic attacks F41.0 [facility] [address] [place] [address] 78915- 2879 Dec, BMI 45.0-49.9, adult Z68.42 ; Bipolar disorder, in partial remission, most recent episode depressed F31.75 ; MESERET (generalized anxiety disorder) F41.1 and Panic disorder F41.0 [facility] [address] [place] [address] 35198- 7519 Dec, Bipolar 1 disorder, depressed F31.9 ; PTSD (post-traumatic stress disorder) F43.10 and Panic attacks F41.0 [facility] [address] [address] Nov, Bipolar disorder, in partial remission, most recent episode depressed F31.75 ; MESERET (generalized anxiety disorder) F41.1 and Panic disorder F41.0 [facility] [address] [address] Nov, [facility] [id number] [place] [address] 23953- 4241 Nov, [facility] [address] [place] [address] 42228- 5091 Oct, BMI 45.0-49.9, adult Z68.42 ; Bipolar disorder, in partial remission, most recent episode depressed F31.75 ; MESERET (generalized anxiety disorder) F41.1 and Panic disorder F41.0 [place] [address] [facility] [id number] [address] Oct, BMI 45.0-49.9, adult Z68.42 ; Coronary artery disease involving ugashik coronary artery of ugashik heart without angina pectoris I25.10 ; Hx of CABG Z95.1 ; Dyspnea on exertion R06.09 ; Essential hypertension I10 ; Mixed hyperlipidemia E78.2 ; Claudication I73.9 and Tobacco use Z72.0 [facility] [id number] [id number] 15 Oct, 2017 BMI 45.0-49.9, adult Z68.42 ; Bipolar 1 disorder, depressed F31.9 and Abscess L02.91 [facility] [address] [address] 14 Oct, 2017 Bipolar 1 disorder, depressed F31.9 ; PTSD (post-traumatic stress disorder) F43.10 and Panic attacks F41.0 [place] [address] [place] [address] 31758- 5587 Sep, BMI 40.0-44.9, adult Z68.41 ; Mood disorder F39 ; MESERET ( generalized anxiety disorder) F41.1 and Panic disorder F41.0 [place] [id number] [place] [address] 88864- 2150 Sep, BMI 40.0-44.9, adult Z68.41 [place] [id number] [place] [address] 49401- 1311 Sep, Bipolar 1 disorder, depressed F31.9 ; PTSD (post-traumatic stress disorder) F43.10 and Panic attacks F41.0 [place] [address] [place] [address] 63378- 2580 Aug, BMI 40.0-44.9, adult Z68.41 ; Mood disorder F39 ; MESERET ( generalized anxiety disorder) F41.1 and Panic disorder F41.0 [place] [address] [address]- 9[address] Aug, Bipolar 1 disorder, depressed F31.9 ; PTSD (post-traumatic stress disorder) F43.10 and Panic attacks F41.0 [facility] [id number], [place] [address] Aug, [facility] [id number], [place] [id number] Aug, COPD mixed type J44.9 [place] [address] [id number] [address]- 65[address] Aug, [facility] [address] [place] [address] 21023- 4577 Jul, PTSD (post-traumatic stress disorder) F43.10 ; Panic disorder F41.0 ; MESERET (generalized anxiety disorder) F41.1 ; Mood disorder F39 and BMI 40.0-44.9, adult Z68.41 [facility] [address] [address] 65[address] Jul, Bipolar 1 disorder, depressed F31.9 ; PTSD (post-traumatic stress disorder) F43.10 and Panic attacks F41.0 [address] [place] [address] [id number] Jul, Bipolar 1 disorder, depressed F31.[address] [place] [address] [id number] Jul, Anxiety F41.9 ; COPD mixed type J44.9 ; Essential hypertension I10 ; Bipolar 1 disorder F31.9 ; High risk medication use Z79.899 ; BMI 40.0-44.9, adult Z68.41 and Coronary artery disease involving coronary bypass graft of ugashik heart without angina pectoris I25.[address] [place] [address] [id number] Jul, Chronic obstructive pulmonary disease with acute exacerbation J44.1 and Acute nasopharyngitis J00 [address] [place] [address] [id number] Jul, Anxiety F41.9 ; Mixed hyperlipidemia E78.2 and Bipolar 1 disorder F31.9 [facility] [employer] [address] [id number] [place] [address] Jun Bipolar 1 disorder F31.9 [facility] [address] [id number] [place] [address] [address] [place] [id number] [id number] Jun, Anxiety F41.9 ; Elevated blood sugar R73.9 ; Mixed hyperlipidemia E78.2 ; COPD mixed type J44.9 ; Essential hypertension I10 ; Bipolar 1 disorder F31.9 ; Coronary artery disease involving coronary bypass graft of ugashik heart without angina pectoris I25.810 ; High risk medication use Z79.899 ; Controlled substance agreement signed Z79.899 ; Elevated fasting glucose R73.01 ; Encounter for immunization Z23 and BMI 40.0-44.9, adult Z68.41 [facility] [id number] [place] [address] [id number] Jun, Elevated blood sugar R73.9 [facility] [id number] [place] [address] [id number] Jun, [facility] [id number] [place] [address] [id number] Jun, Bipolar 1 disorder F31.9 ; Obesity (BMI 30-39.9) E66.9 ; Coronary artery disease involving coronary bypass graft of ugashik heart without angina pectoris I25.810 and Essential hypertension I10 [facility] [id number] [place] [address] [phone] Jun, Coronary artery disease involving coronary bypass graft of ugashik heart without angina pectoris I25.810 ; Bipolar 1 disorder F31.9 ; Anxiety F41.9 ; Essential hypertension I10 ; COPD mixed type J44.9 and Mixed hyperlipidemia E78.2 [facility] [id number] [place] [address] [id number] May, Severe single current episode of major depressive disorder, 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.2 ; Bipolar 1 disorder F31.9 ; Anxiety F41.9 ; PTSD (post -traumatic stress disorder) F43.10 ; Coronary artery disease involving coronary bypass graft of ugashik heart without angina pectoris I25.810 ; Sleep apnea in adult G47.30 ; Essential hypertension I10 ; High risk medication use Z79.899 ; Obesity (BMI 30-39.9) E66.9 ; Encounter for therapeutic drug level monitoring Z51.81 and COPD mixed type J44.9 [facility] [id number] [place] [address] [id number] May, Severe single current episode of major depressive disorder, 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.2 ; Bipolar 1 disorder F31.9 ; Anxiety F41.9 ; PTSD (post -traumatic stress disorder) F43.10 ; Mixed hyperlipidemia E78.2 ; Coronary artery disease involving coronary bypass graft of ugashik heart without angina pectoris I25.810 ; Sleep apnea in adult G47.30 ; Essential hypertension I10 ; High risk medication use Z79.899 ; Controlled substance agreement signed Z79.899 ; Obesity (BMI 30-39.9) E66.9 ; Tobacco abuse Z72.0 ; Tobacco abuse counseling Z71.6 and COPD mixed type J44.9 [facility] [id number] [place] [address] [id number] May, [facility] [address] [id number]- [address]239 Dec, [facility] [id number] [place] [address] 63654- 9184 Dec, [facility] [id number] [place] [address] 34414- 8259 May, [facility] [id number] [place] [address] 38825- 8167 May, [facility] [id number] [place] [address] [phone] Dec, [facility] [id number] [place] [address] 21567- 8328 Dec, [facility] [id number] [place] [address] [phone] Dec, [facility] [id number] [place] [address] [id number]- 5902 Dec, [facility] [id number] [place] [address] 698586- 2262 Dec, [facility] [id number] [place] [address] [id number]- 6498 Dec, [facility] [id number] [place] [address] [id number]- 8209 Nov, [facility] [address] [id number] [id number] 17 Nov, 2013 [facility] [place] [address] [id number] [place] [id number] Nov, [facility] [address] [id number] [place] [id number] Nov, [facility] [place] [facility] [address] [facility] [id number] [place] [address] 2546 Nov, [facility] [place] [facility] [address] [facility] [id number] [place] [address] 2546 Nov, [facility] [place] [facility] [address] [facility] [id number] [place] [address]- 2346 Nov, [facility] [place] [facility] [address] [facility] [id number] [place] [address]- 0896 Nov, [facility] [place] [facility] [address] [id number] [address]- 4104 Nov, [facility] [place] [facility] [address] [facility] [id number] [place] [address]- 4266 Nov, [facility] [address] [facility] [id number] [place] [id number] Nov, [facility] [address] [facility] [id number], [place] [id number] Oct, [facility] [place] [facility] [address] [id number] [address]- 2546 Oct, [facility] [address] [facility] [id number], [place] [id number] Oct, [facility] [place] [facility] [address] [facility] [id number] [place] [address]- 3666 Oct, [facility] [place] [facility] [address] [facility] [id number] [place] [address]- 2546 Oct, [facility] [address] [facility] [id number][place] [id number] Sep, [facility] [place] [facility] [address] [id number] [address]- 9641 Sep, [facility] [address] [id number] [place] [id number] Sep, [facility] [place] [facility] [address] [facility] [id number] [place] [address]- 2546 Sep, [facility] [place] [facility] [address] [facility] [id number] [place] [address]- 2546 Sep, [facility] [place] [facility] [address] [facility] [id number] [place] [address]- 2546 Sep, [facility] [place] [facility] [address] [facility] [id number] [place] [address]- 2546 Aug, [facility] [address] [id number] [place] [id number] Aug, [facility] [address] [place] [address]- 2546 Aug, [facility] [address] [id number], [place] 13889[address] Jul, [facility] [address] [facility] [id number] [place] [address]- 2546 Jul, [facility] [address] [id number], [place] [id number] Jul, [facility] [address] [facility] [id number] [place] [address]- 2546 Jul, [facility] [place] [facility] [address] [id number] [address]- 2546 May, [facility] [place] [facility] [address] [facility] [id number] [place] [address]- 2546 Apr, [facility] [place] [facility] [address] [facility] [id number] [place] [address]- 2546 Apr, [facility] [place] [facility] [address] [facility] [id number] [place] [address]- 2546 Mar, [facility] [address] [facility] [id number], [place] [id number] Feb, [facility] [address] [id number] [place] [id number] Feb, [facility] [address] [id number] [place] 8561475[address] Feb, [facility] [address] [facility] [id number] [place] [address]- 9585 Feb, [facility] [address] [facility] [id number] [place] [address]01775[place]- 6513 January, [facility] [address] [facility] [id number] [place] 84[place]- [address]27 January, [facility] [address] [id number] [place] [id number] Dec, [facility] [address] [id number] [place] [id number] Dec, [facility] [address] [id number] [place] [id number] Dec, [facility] [address] [id number] [place] [id number] Dec, [facility] [address] [id number] [place] [id number] Dec, [facility] [address] [id number] [place] [id number] Dec, [facility] [address] [address]- 6018 Dec, [facility] [address] [facility] [id number] [place] [address]- 4006 Dec, [facility] [address] [id number], [place] 310777330 Nov, [facility] [address] [id number] [place] [id number] Nov, [facility] [address] [facility] [id number], [place] [id number] Nov, [facility] [address] 56644[address]- 7845 Oct, [facility] [address] [id number] [address]- 2546 Oct, [facility] [address] [id number] [place] [address]- 2546 Sep, [facility] [place] [facility] [address] [facility] [id number] [place] [address]- 2836 Aug, [facility] [place] [facility] [address] [facility] [id number] [place] [address]- 2546 Aug, [facility] [place] [facility] [address] [facility] [id number] [place] [address]- 2546 Aug, [facility] [place] [facility] [address] [facility] [id number] [place] [address]- 9926 Aug, [facility] [address] [facility] [id number], [place] 410184751 Aug, [facility] [place] [facility] [address] [address]- 3206 Aug, [facility] [place] [facility] [address] [facility] [id number] [place] [address]- 7256 Jul, [facility] [place] [facility] [address] [facility] [id number] [place] [address]- 9996 Jul, [facility] [place] [facility] [address] [facility] [id number] [place] [address]- 2546 Jul, [facility] [address] [facility] [id number] [place] [address]- 2546 Jul, [facility] [address] [facility] [id number], [place] [id number] Jun, [facility] [address] [facility] [id number], [place] [id number] Jun, [facility] [place] [facility] [address] [facility] [id number] [place] [address]- 2546 Jun, [facility] [address] [facility] [id number], [place] 451965519 Apr, [facility] [place] [facility] [address] [facility] [id number] [place] [address]- 2546 Apr, [facility] [place] [facility] [address] [id number] [place] [address]- 4136 Mar, [facility] [address] [id number] [place] [id number] Feb, [facility] [address] [id number] [place] [id number] Feb, [facility] [place] [facility] [address] [facility] [id number] [place] [address]- 5816 Feb, [facility] [address] [id number] [place] [id number] Feb, [facility] [place] [facility] [address] [facility] [id number] [place] [address]- 9866 Feb, [facility] [place] [facility] [address] [facility] [id number] [place] [address]- 9316 Feb, [facility] [place] [facility] [address] [id number] [address]- 7136 Feb, [facility] [place] [facility] [address] [facility] [id number] [place] [address]- 6846 Feb, [facility] [address] [id number], [place] [id number] January, [facility] [address] [id number], [place] 383426154 Dec, [facility] [place] [facility] [address] [facility] [id number] [place] [address]- 2676 Dec, [facility] [place] [facility] [address] [facility] [id number] [place] [address]- 2546 Dec, [facility] [address] [id number], [place] 087328431 Dec, [facility] [place] [facility] [address] [facility] [id number] [place] [address]- 2546 Dec, [facility] [address] [id number] [place] [id number] Dec, [facility] [address] [id number] [place] [id number] Nov, [facility] [address] [id number] [place] 974[address]229 Nov, [facility] [address] [id number] [place] 420591741 Nov, [facility] [address] [id number] [place] [id number] Nov, [facility] [address] [facility] [id number] [place] [address]- 2546 Oct, [facility] [address] [id number] [place] [id number] Oct, [facility] [address] [id number] [place] [id number] Oct, [facility] [address] [id number] [place] [id number] Oct, [facility] [place] [address] [id number] [place] [id number] Oct, [facility] [place] [address] [id number] [place] [id number] Sep, [facility] [place] [address] [id number] [place] [id number] Sep, [facility] [place] [facility] [id number] [address] Sep, [facility] [place] [facility] [id number] [address] Sep, [facility] [place] [facility] [id number] [address] Sep, [facility] [place] [facility] [address] [facility] [id number] [place] [address] Sep, [facility] [place] [facility] [id number] [address] Aug, [facility] [place] [facility] [id number] [address] Aug, [facility] [place] [facility] [address] [id number] [place] [address] Aug, [facility] [place] [facility] [address] [id number] [place] [address] Aug, [facility] [place] [facility] [address] [id number] [place] [address] Aug, [facility] [place] [facility] [address] [id number] [place] [address] Aug, [facility] [place] [facility] [address] [id number] [place] [address] Aug, [facility] [place] [facility] [address] [id number] [place] [address] Aug, [facility] [place] [facility] [address] [id number] [place] [address] Jun, [facility] [place] [facility] [address] [id number] [place] [address] 27 Jun, 2011 [facility] [place] [facility] [address] [id number] [place] [address] Jun, [facility] [place] [facility] [address] [id number] [place] [address] 19 Jun, 2011 [facility] [place] [facility] [address] [id number] [place] [address] 14 Jun, 2011 [facility] [place] [facility] [address] [id number] [place] [address] 13 Jun, 2011 [facility] [place] [facility] [address] [id number] [place] [address] 12 Jun, 2011 [facility] [place] [facility] [address] [id number] [place] [address] 12 Jun, 2011 [facility] [place] [facility] [address] [id number] [place] [address] 12 Jun, 2011 [facility] [place] [facility] [address] [id number] [place] [address] 14 May, 2011 [facility] [place] [facility] [address] [id number] [address] Apr, [facility] [id number] [address] Feb, [facility] [id number] [address] Dec, [facility] [id number] [address] Aug, [facility] [id number] [address] Aug, [facility] [id number] [address] Aug, [facility] [id number] [address] Aug, [facility] [id number] [address] Jul, [facility] [address] [address] Jun, [facility] [address] [id number] [address] Jun, IMMUNIZATIONS No Known Immunizations SOCIAL HISTORY Never Assessed REASON FOR VISIT Lab (walk-in) PLAN OF CARE VITAL SIGNS MEDICATIONS Unknown Medications RESULTS No Results PROCEDURES Procedure Date Ordered Result Body Site ASSAY OF LITHIUM Jun 24, 2017 ASSAY OF VITAMIN D Jun 24, 2017 VENIPUNCT, ROUTINE* Jun 24, 2017 LIPID PANEL Jun 24, 2017 COMPLETE CBC W/AUTO DIFF WBC Jun 24, 2017 ASSAY THYROID STIM HORMONE Jun 24, 2017 COMPREHEN METABOLIC PANEL Jun 24, 2017 ASSAY OF MAGNESIUM Jun 24, 2017 INSTRUCTIONS MEDICATIONS ADMINISTERED No Known Medications [...] Coronary atherosclerosis of unspecified type of vessel, [place] or graft Medical History Coronary atherosclerosis of unspecified type of vessel, [place] or graft Surgical History section x4 Surgical History CABG x3 Surgical History Left arm-Plate and screws placed Hospitalization History Surgery(s)/Childbirth(s) only
--- OUTSIDE RECORDS SUMMARY | 2019-02-02 14:09 | XMS REPORT ---
Author Author ЕКАТЕРИНА MTZ [facility] Address [address] [place] [address] Care Team Providers Care Work Distributor Name Role Phone ЕКАТЕРИНА MTZ Unavailable PROBLEMS Type Condition ICD9-CM Code HGQ97-LS Code Onset Dates Condition Status SNOMED Code Problem Coronary artery disease involving coronary bypass graft of [place] heart without angina pectoris I25.810 Active 985548971 Problem Chronic obstructive pulmonary disease with acute exacerbation J44.1 Active 504275569 Problem Mixed hyperlipidemia E78.2 Active 798101946 Problem Bipolar disorder, in partial remission, most recent episode depressed F31.75 Active 23093600 Problem Claudication I73.9 Active 503077370 Problem MESERET (generalized anxiety disorder) F41.1 Active 25515469 Problem Panic disorder F41.0 Active 599080569 Problem Coronary artery disease involving [place] coronary artery of [place] heart without angina pectoris I25.10 Active 6682039096623 Problem Mood disorder F39 Active 24618478 Problem Obesity (BMI 30-39.9) E66.9 Active 968155153 Problem Bipolar 1 disorder F31.9 Active 777081086 Problem PTSD (post-traumatic stress disorder) F43.10 Active 90111122 Problem Sleep apnea in adult G47.30 Active 30711606 Problem Essential hypertension I10 Active 14842587 Problem COPD mixed type J44.9 Active 53748637 ALLERGIES Substance Reaction Event Type Date Status Penicillin V Potassium Swelling/hives Drug Allergy Jul, Active Abilify dizziness Drug Allergy Jul, Active ENCOUNTERS Encounter Location Date Diagnosis [facility] [address] [id number] [address] Feb, [facility] [address] [id number], [place] [address] Feb, [address] [id number] [id number] Feb, [place] [address] [place] [address]08- 8546 January, High risk medication use Z79.899 ; Bipolar disorder, in partial remission, most recent episode depressed F31.75 ; MESERET (generalized anxiety disorder) F41.1 ; Panic disorder F41.0 and BMI 45.0-49.9, adult Z68.42 [place] [id number] [place] [address] 79839- 0506 January, Bipolar 1 disorder, depressed F31.9 ; PTSD (post-traumatic stress disorder) F43.10 and Panic attacks F41.0 [place] [id number] [place] [address] 94543- 3863 January, Bipolar 1 disorder, depressed F31.9 ; PTSD (post-traumatic stress disorder) F43.10 and Panic attacks F41.0 [place] [address] [place] [address] 81511- 6196 Dec, BMI 45.0-49.9, adult Z68.42 ; Bipolar disorder, in partial remission, most recent episode depressed F31.75 ; MESERET (generalized anxiety disorder) F41.1 and Panic disorder F41.0 [place] [address] [address] Dec, Bipolar 1 disorder, depressed F31.9 ; PTSD (post-traumatic stress disorder) F43.10 and Panic attacks F41.0 [place] [address] [place] [address] 71949- 4786 Nov, Bipolar disorder, in partial remission, most recent episode depressed F31.75 ; MESERET (generalized anxiety disorder) F41.1 and Panic disorder F41.0 [place] [address] [place] [address] 99995- 6758 Nov, [place] [id number] [place] [address] 04109- 4545 Nov, [place] [address]65100[place] [address] Oct, BMI 45.0-49.9, adult Z68.42 ; Bipolar disorder, in partial remission, most recent episode depressed F31.75 ; MESERET (generalized anxiety disorder) F41.1 and Panic disorder F41.[address] [id number] [id number] 23 Oct, 2017 BMI 45.0-49.9, adult Z68.42 ; Coronary artery disease involving [place] coronary artery of [place] heart without angina pectoris I25.10 ; Hx of CABG Z95.1 ; Dyspnea on exertion R06.09 ; Essential hypertension I10 ; Mixed hyperlipidemia E78.2 ; Claudication I73.9 and Tobacco use Z72.0 [facility] [address] [id number] [id number] 15 Oct, 2017 BMI 45.0-49.9, adult Z68.42 ; Bipolar 1 disorder, depressed F31.9 and Abscess L02.[address] [place] [address] 90464- 3477 14 Oct, 2017 Bipolar 1 disorder, depressed F31.9 ; PTSD (post-traumatic stress disorder) F43.10 and Panic attacks F41.0 [address]65100[place] [address] 9[address] Sep, BMI 40.0-44.9, adult Z68.41 ; Mood disorder F39 ; MESERET ( generalized anxiety disorder) F41.1 and Panic disorder F41.0 [place] [address]00565100[place], [place] [address] 3247 Sep, BMI 40.0-44.9, adult Z68.41 [address] [place] [address] 01946- 9260 Sep, Bipolar 1 disorder, depressed F31.9 ; PTSD (post-traumatic stress disorder) F43.10 and Panic attacks F41.0 [place] [address] [place] [address] 66468- 6021 Aug, BMI 40.0-44.9, adult Z68.41 ; Mood disorder F39 ; MESERET ( generalized anxiety disorder) F41.1 and Panic disorder F41.0 [facility] [id number] [place] [address] 16647- 8051 Aug, Bipolar 1 disorder, depressed F31.9 ; PTSD (post-traumatic stress disorder) F43.10 and Panic attacks F41.0 [facility] [id number] [place] [address] [id number] Aug, [facility] [id number] [place] [address] [id number] Aug, COPD mixed type J44.9 [place] [id number] [place] [address] 36697- 2125 Aug, [facility] [id number] [place] [address] 28879- 1960 Jul, PTSD (post-traumatic stress disorder) F43.10 ; Panic disorder F41.0 ; MESERET (generalized anxiety disorder) F41.1 ; Mood disorder F39 and BMI 40.0-44.9, adult Z68.41 [facility] [id number] [place] [address] 55371- 5076 Jul, Bipolar 1 disorder, depressed F31.9 ; PTSD (post-traumatic stress disorder) F43.10 and Panic attacks F41.0 [facility] [address] [place] [address] [id number] Jul, Bipolar 1 disorder, depressed F31.9 [facility] [id number] [place] [address] [id number] Jul, Anxiety F41.9 ; COPD mixed type J44.9 ; Essential hypertension I10 ; Bipolar 1 disorder F31.9 ; High risk medication use Z79.899 ; BMI 40.0-44.9, adult Z68.41 and Coronary artery disease involving coronary bypass graft of [place] heart without angina pectoris I25.810 [facility] [id number] [place] [address] [id number] Jul, Chronic obstructive pulmonary disease with acute exacerbation J44.1 and Acute nasopharyngitis J00 [id number] [address] Jul, Anxiety F41.9 ; Mixed hyperlipidemia E78.2 and Bipolar 1 disorder F31.9 [facility] [address] [id number] [place] [address] Jun Bipolar 1 disorder F31.9 [facility] [address] [id number] [place] [address] Jun [place] [id number] [id number] Jun, Anxiety F41.9 ; Elevated blood sugar R73.9 ; Mixed hyperlipidemia E78.2 ; COPD mixed type J44.9 ; Essential hypertension I10 ; Bipolar 1 disorder F31.9 ; Coronary artery disease involving coronary bypass graft of [place] heart without angina pectoris I25.810 ; High risk medication use Z79.899 ; Controlled substance agreement signed Z79.899 ; Elevated fasting glucose R73.01 ; Encounter for immunization Z23 and BMI 40.0-44.9, adult Z68.41 [address] [place] [address] [id number] Jun, Elevated blood sugar R73.9 [address] [place] [address] [id number] Jun, [address] [place] [address] [id number] Jun, Bipolar 1 disorder F31.9 ; Obesity (BMI 30-39.9) E66.9 ; Coronary artery disease involving coronary bypass graft of [place] heart without angina pectoris I25.810 and Essential hypertension I10 [address] [place] [address] [id number] Jun, Coronary artery disease involving coronary bypass graft of [place] heart without angina pectoris I25.810 ; Bipolar 1 disorder F31.9 ; Anxiety F41.9 ; Essential hypertension I10 ; COPD mixed type J44.9 and Mixed hyperlipidemia E78.2 [id number] [id number] May, Severe single current episode of major depressive disorder, 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.2 ; Bipolar 1 disorder F31.9 ; Anxiety F41.9 ; PTSD (post -traumatic stress disorder) F43.10 ; Coronary artery disease involving coronary bypass graft of [place] heart without angina pectoris I25.810 ; Sleep apnea in adult G47.30 ; Essential hypertension I10 ; High risk medication use Z79.899 ; Obesity (BMI 30-39.9) E66.9 ; Encounter for therapeutic drug level monitoring Z51.81 and COPD mixed type J44.9 [facility] [id number] [place] [address] [id number] May, Severe single current episode of major depressive disorder, 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.2 ; Bipolar 1 disorder F31.9 ; Anxiety F41.9 ; PTSD (post -traumatic stress disorder) F43.10 ; Mixed hyperlipidemia E78.2 ; Coronary artery disease involving coronary bypass graft of [place] heart without angina pectoris I25.810 ; Sleep apnea in adult G47.30 ; Essential hypertension I10 ; High risk medication use Z79.899 ; Controlled substance agreement signed Z79.899 ; Obesity (BMI 30-39.9) E66.9 ; Tobacco abuse Z72.0 ; Tobacco abuse counseling Z71.6 and COPD mixed type J44.9 [facility] [id number] [place] [address] [id number] May, [facility] [address]65[address] [address] 8690 Dec, [facility] [id number] [place] [address] 70956- 6390 Dec, [facility] [id number] [place] [address] 17405- 0336 May, [facility] [id number] [place] [address] 34128- 1389 May, [facility] [id number] [place] [address] [id number] Dec, [facility] [address] [id number] [place] [address]- 8686 Dec, [facility] [address] [facility] [id number] [place] [id number] Dec, [facility] [place] [facility] [address] [id number] [place] [address] 2546 Dec, [facility] [place] [facility] [address] [id number] [place] [address]- 2546 Dec, [facility] [place] [facility] [address] [id number] [place] [address] 2546 Dec, [facility] [place] [facility] [address] [id number] [place] [address] 2546 Nov, [facility] [address] [facility] [id number] [place] [id number] Nov, [facility] [address] [facility] [id number] [place] [address]708[address] Nov, [facility] [address] [facility] [id number][place] [id number] Nov, [facility] [place] [facility] [address] [id number] [place] [address]- 1002 Nov, [facility] [place] [facility] [address] [id number] [place] [address]- 5116 Nov, [facility] [place] [facility] [address] [id number], [place] [address]- 8986 Nov, [facility] [place] [facility] [address] [id number], [place] [address]- 8446 15 Nov, 2013 [facility] [place] [facility] [address] [id number] [place] [address]- 3805 14 Nov, 2013 [facility] [place] [facility] [address] [id number] [place] [address]- 9126 Nov, [facility] [address] [id number][place] [id number] Nov, [facility] [address] [facility] [id number][place] [id number] Oct, [facility] [place] [facility] [address] [id number], [place] [address]- 1840 Oct, [facility] [address] [facility] [id number] [place] [id number] Oct, [facility] [place] [facility] [address] [id number], [place] [address]- 3306 Oct, [facility] [place] [facility] [address] [id number], [place] [address] 2546 Oct, [facility] [address] [id number][place] [id number] Sep, [facility] [place] [facility] [address] [id number], [place] [address]- 2836 Sep, [facility] [address] [id number], [place] [id number] Sep, [facility] [place] [facility] [address]00565100[place], [place] [address]- 0216 Sep, [facility] [place] [facility] [address] [id number], [place] [address]- 6926 Sep, [facility] [place] [facility] [address]00565100[place], [place] [address]- 8450 Sep, [facility] [place] [facility] [address]100[place] [address]- 8226 Aug, [facility] [address] [id number], [place] [id number] Aug, [facility] [place] [facility] [address] [id number], [place] [address]- 2546 Aug, [facility] [address] [facility] [id number][place] [address]642338 Jul, [facility] [place] [facility] [address] [id number][place] [address]- 2546 Jul, [facility] [address] [id number], [place] [id number] Jul, [facility] [place] [facility] [address]100[place] [address]- 2417 Jul, [facility] [address] [id number], [place] [address]- 6247 May, [facility] [place] [facility] [address] [id number], [place] [address]- 4076 Apr, [facility] [address] [id number], [place] [address] 2545 Apr, [facility] [place] [facility] [address] [id number], [place] [address]- 6798 Mar, [facility] [address] [id number], [place] [id number] Feb, [facility] [address] [id number], [place] [address]99809[address] Feb, [facility] [address] [id number], [place] 518[address] Feb, [facility] [address]00565100[place], [place] [address]- 6358 Feb, [facility] [address]00565100[place], [place] [address]- 3488 January, [facility] [address]00565100[place], [place] [address]- 7891 January, [facility] [address] [id number], [place] [id number] Dec, [facility] [address] [id number], [place] 319945891 Dec, [facility] [address] [id number], [place] [id number] Dec, [facility] [address] [id number] [place] [id number] Dec, [facility] [address] [id number] [place] 0157238[address] Dec, [facility] [address] [id number] [place] 4744675[address] Dec, [facility] [place] [facility] [address]00565100[place], [place] [address]- 2546 Dec, [facility] [address] [id number], [place] [address]- 2546 Dec, [facility] [address] [id number] [place] [id number] Nov, [facility] [address] [facility] [id number] [place] 736806882 Nov, [facility] [address] [facility] [id number] [place] 826578460 Nov, [facility] [address] [id number] [place] [address]- 1626 Oct, [facility] [place] [facility] [address] [id number], [place] [address]- 2546 Oct, [facility] [place] [facility] [address]00565100[place], [place] [address]- 2236 Sep, [facility] [place] [facility] [address] [id number], [place] [address]- 4192 Aug, [facility] [place] [facility] [address] [id number], [place] [address]- 7895 Aug, [facility] [place] [facility] [address] [id number], [place] [address]- 2624 Aug, [facility] [place] [facility] [address] [id number], [place] [address]- 7956 Aug, [facility] [address] [id number], [place] [id number] Aug, [facility] [place] [facility] [address] [id number], [place] [address]- 6918 Aug, [facility] [place] [facility] [address] [id number], [place] [address]- 8896 Jul, [facility] [place] [facility] [address] [id number], [place] [address]- 1376 Jul, [facility] [place] [facility] [address]00565100[place], [place] [address]- 1366 Jul, [facility] [place] [facility] [address] [id number], [place] [address]- 2546 Jul, [facility] [address] [id number] [place] 102470783 Jun, [facility] [address] [id number] [place] 467745220 Jun, [facility] [place] [facility] [address] [id number] [address]- 2546 Jun, [facility] [address] [id number] [place] [id number] Apr, [facility] [place] [facility] [address] [id number] [place] [address] 2546 Apr, [facility] [place] [facility] [address] [id number], [place] [address] 2546 Mar, [facility] [address] [id number], [place] 135427606 Feb, [facility] [address] [id number], [place] 882107676 Feb, [facility] [place] [facility] [address] [id number], [place] [address]- 3059 Feb, [facility] [address] [id number], [place] 724114082 Feb, [facility] [place] [facility] [address] [id number], [place] [address]- 2988 Feb, [facility] [place] [facility] [address] [id number], [place] [address]- 8537 Feb, [facility] [place] [facility] [address] [id number], [place] [address]- 8610 Feb, [facility] [place] [facility] [address] [id number], [place] [address]- 0121 Feb, [facility] [address] [id number], [place] 164612360 January, [facility] [address] [id number] [place] 022924143 Dec, [facility] [address] [id number] [place] [address]- 7458 Dec, [facility] [place] [facility] [address] [id number] [address]- 5670 Dec, [facility] [address] [id number] [place] [id number] Dec, [facility] [address] [id number], [place] [address]- 7093 Dec, [facility] [address] [id number] [place] 779705189 Dec, [facility] [address] [id number] [place] [id number] Nov, [facility] [address] [id number] [place] 675398147 Nov, [facility] [address] [id number] [place] 806898464 Nov, [facility] [address] [id number] [place] 293995131 Nov, [facility] [address]00565100[place], [place] [address]- 8756 Oct, [facility] [address] [id number] [place] [id number] Oct, [facility] [address] [id number] [place] 066563527 Oct, [facility] [address] [id number] [place] [id number] Oct, [facility] [address] [id number] [place] 496148980 Oct, [facility] [address] [id number] [place] 491006154 Sep, [facility] [address] [id number] [place] 815357086 Sep, [facility] [address]00565100[place], [place] [address]- 6921 Sep, [facility] [address] [id number] [place] [address]- 5344 Sep, [facility] [place] [facility] [address] [id number] [place] [address]- 1826 Sep, [facility] [place] [facility] [address] [id number] [place] [address]- 0770 Sep, [facility] [place] [facility] [address] [id number] [place] [address]- 9958 Aug, [facility] [place] [facility] [address] [id number] [place] [address]- 1727 Aug, [facility] [place] [facility] [address] [id number] [place] [address]- 8372 Aug, [facility] [place] [facility] [address] [id number] [place] [address]- 8036 Aug, [facility] [place] [facility] [address] [id number] [place] [address]- 8733 Aug, [facility] [place] [facility] [address] [id number] [place] [address]- 1857 Aug, [facility] [place] [facility] [address] [id number] [place] [address]- 6727 Aug, [facility] [place] [facility] [address] [id number] [place] [address]- 3461 Aug, [facility] [place] [facility] [address] [id number], [place] [address]- 8790 Jun, [facility] [place] [facility] [address] [id number] [place] [address]- 8039 Jun, [facility] [place] [facility] [address] [id number] [place] [address]- 1649 Jun, [facility] [place] [facility] [address] [id number] [place] [address]- 4486 Jun, [facility] [place] [facility] [address] [id number] [place] [address]- 5480 14 Jun, 2011 [facility] [address] [id number] [place] 2127 13 Jun, 2011 [facility] [address] [id number] [place]- 5838 12 Jun, 2011 [facility] [address] [id number] [place] [address] 12 Jun, 2011 [facility] [address] [id number] [place] [address] 12 Jun, 2011 [facility] [address] [id number] [place] [address] 14 May, 2011 [facility] [address] [id number] [place] [address] 10 Apr, 2011 [facility] [id number] [place] [address] 16 Feb, 2011 [facility] [address] [id number] [place] [address] 20 Dec, 2010 [facility] [id number] [place] [address] 28 Aug, 2010 [facility] [id number] [place] [address] 28 Aug, 2010 [facility] [id number] [place] [address] 15 Aug, 2010 [facility] [address] [id number] [address] 254 Aug, [facility] [address] [id number] [address] 05 Jul, 2010 [facility] [address] [id number] [address] 27 Jun, 2010 [facility] [address] [id number] [address] 19 Jun, 2010 IMMUNIZATIONS No Known Immunizations SOCIAL HISTORY Never Assessed REASON FOR VISIT CHM- Bipolar Disorder f/u Lisepre[place] PLAN OF CARE Activity Details Follow Up 3 Months Reason:CHM COPD, HTN VITAL SIGNS Height 59 in 2017-08-09 Weight 218.4 lbs 2017-08-09 Temperature 98.1 degrees Fahrenheit 2017-08-09 Heart Rate 74 bpm 2017-08-09 Respiratory Rate 18 2017-08-09 BMI 44.11 kg/m2 2017-08-09 Blood pressure systolic 130 mmHg 2017-08-09 Blood pressure diastolic 78 mmHg 2017-08-09 MEDICATIONS Medication Instructions Dosage Frequency Start Date End Date Duration Status Losartan Potassium-HCTZ 50-12.5 MG Orally twice a day 1 tablet 12h Active Aspir-81 81 MG Orally Once a day 1 tablet 24h Active [place] Carbonate 300 MG Orally 2 times a day 2 capsules 12h Active Alprazolam 0.5 MG Orally 2 times per day, must last 1 month 1 tablet Active Symbicort 160-4.5 MCG/ACT Inhalation Twice a day 2 puffs 12h Active Benzonatate 100 mg Orally Three times a day 1 capsule as needed 8h 06 Jul, 2017 Not-Taking Albuterol Sulfate (2.5 MG/3ML) 0.083% Inhalation Three times a day 3 ml 8h Active Ventolin HFA 108 (90 Base) MCG/ACT Inhalation every 4 hrs 2 puffs as needed 4h Active Atorvastatin Calcium 40 mg Orally Once a day 1 tablet 24h 0 Active Gabapentin 400 mg Orally Three times a day 2 capsules 8h Active RESULTS Name Result Date Reference Range URINE DRUG SCREEN (IN HOUSE) 2017-08-10 Lot # [id number] Exp date 08/07 Control positive COCAINE neg AMPH neg MTD neg THC neg OPIATE neg BENZO neg PCP neg BAR neg OXY neg MAMP neg TCA neg BUP neg MDMA neg LITHIUM (ESKALITH(R)), SERUM 2017-08-09 LITHIUM 1.0 0.6-1.2 PROCEDURES Procedure Date Ordered Result Body [facility] Aug 09, 2017 VENIPUNCT, ROUTINE* Aug 09, 2017 DRUG TEST PRSMV DIR OPT OBS Aug 09, 2017 INSTRUCTIONS MEDICATIONS ADMINISTERED No Known [...] Coronary atherosclerosis of unspecified type of vessel, [place] or graft Medical History Coronary atherosclerosis of unspecified type of vessel, [place] lake or graft Surgical History section x4 Surgical History CABG x3 Surgical History Left arm-Plate and screws placed Hospitalization History Surgery(s)/Childbirth(s) only
--- OUTSIDE RECORDS SUMMARY | 2019-02-02 14:10 | XMS REPORT ---
Author Author ЕКАТЕРИНА MTZ [facility] Address [address] [place] [address] Care Team Providers Care Sales Facilitator Name Role Phone ЕКАТЕРИНА MTZ Unavailable PROBLEMS Type Condition ICD9-CM Code YSA74-GH Code Onset Dates Condition Status SNOMED Code Problem Coronary artery disease involving coronary bypass graft of [place] heart without angina pectoris I25.810 Active 659331050 Problem Chronic obstructive pulmonary disease with acute exacerbation J44.1 Active 707022666 Problem Mixed hyperlipidemia E78.2 Active 853054223 Problem Bipolar disorder, in partial remission, most recent episode depressed F31.75 Active 15914141 Problem Claudication I73.9 Active 807811565 Problem MESERET (generalized anxiety disorder) F41.1 Active 89490829 Problem Panic disorder F41.0 Active 298802927 Problem Coronary artery disease involving [place] coronary artery of [place] heart without angina pectoris I25.10 Active 8832261988947 Problem Mood disorder F39 Active 04253738 Problem Obesity (BMI 30-39.9) E66.9 Active 030484184 Problem Bipolar 1 disorder F31.9 Active 330666459 Problem PTSD (post-traumatic stress disorder) F43.10 Active 71307080 Problem Sleep apnea in adult G47.30 Active 98590197 Problem Essential hypertension I10 Active 35683889 Problem COPD mixed type J44.9 Active 73091590 ALLERGIES No Information ENCOUNTERS Encounter Location Date Diagnosis [facility] [address] [id number] [id number] Feb, [facility] [address] [facility] [id number] [address] January, [facility] [address] [facility] [id number], [place] [address] January, [facility] [address] [facility] [id number] [place] [address] 87091- 8691 January, Bipolar 1 disorder, depressed F31.9 ; PTSD (post-traumatic stress disorder) F43.10 and Panic attacks F41.0 [facility] [address] [place] [address]12- 5604 Dec, BMI 45.0-49.9, adult Z68.42 ; Bipolar disorder, in partial remission, most recent episode depressed F31.75 ; MESERET (generalized anxiety disorder) F41.1 and Panic disorder F41.0 [facility] [address] [place] [address] 00893- 2681 Dec, Bipolar 1 disorder, depressed F31.9 ; PTSD (post-traumatic stress disorder) F43.10 and Panic attacks F41.0 [facility] [address]00565100[place] [address] Nov, Bipolar disorder, in partial remission, most recent episode depressed F31.75 ; MESERET (generalized anxiety disorder) F41.1 and Panic disorder F41.0 [facility] [address]00565100[place], [place] [address] Nov, [facility] [id number] [place] [address] 82115- 9117 Nov, [facility] [address] [place] [address] 76022- 7493 Oct, BMI 45.0-49.9, adult Z68.42 ; Bipolar disorder, in partial remission, most recent episode depressed F31.75 ; MESERET (generalized anxiety disorder) F41.1 and Panic disorder F41.0 [place] [id number] [facility] [address] [id number] [id number] Oct, BMI 45.0-49.9, adult Z68.42 ; Coronary artery disease involving [place] coronary artery of [place] heart without angina pectoris I25.10 ; Hx of CABG Z95.1 ; Dyspnea on exertion R06.09 ; Essential hypertension I10 ; Mixed hyperlipidemia E78.2 ; Claudication I73.9 and Tobacco use Z72.0 [facility] [id number] [id number] 15 Oct, 2017 BMI 45.0-49.9, adult Z68.42 ; Bipolar 1 disorder, depressed F31.9 and Abscess L02.91 [facility] [address]00565100[place] [address] 14 Oct, 2017 Bipolar 1 disorder, depressed F31.9 ; PTSD (post-traumatic stress disorder) F43.10 and Panic attacks F41.0 [place] [address] [place] [address] 36171- 0821 Sep, BMI 40.0-44.9, adult Z68.41 ; Mood disorder F39 ; MESERET ( generalized anxiety disorder) F41.1 and Panic disorder F41.0 [place] [id number] [place] [address] 06265- 5871 Sep, BMI 40.0-44.9, adult Z68.41 [place] [id number] [place] [address] 49310- 3740 Sep, Bipolar 1 disorder, depressed F31.9 ; PTSD (post-traumatic stress disorder) F43.10 and Panic attacks F41.0 [place] [address] [place] [address] 81098- 5346 Aug, BMI 40.0-44.9, adult Z68.41 ; Mood disorder F39 ; MESERET ( generalized anxiety disorder) F41.1 and Panic disorder F41.0 [place] [address]00565100[place], [place] [address] Aug, Bipolar 1 disorder, depressed F31.9 ; PTSD (post-traumatic stress disorder) F43.10 and Panic attacks F41.0 [facility] [id number], [place] [id number] Aug, [facility] [id number], [place] [id number] Aug, COPD mixed type J44.9 [place] [address] [id number] [address] Aug, [facility] [address] [place] [address] 47440- 0217 Jul, PTSD (post-traumatic stress disorder) F43.10 ; Panic disorder F41.0 ; MESERET (generalized anxiety disorder) F41.1 ; Mood disorder F39 and BMI 40.0-44.9, adult Z68.41 [facility] [address]00565100[place], [place] [address] 2872 Jul, Bipolar 1 disorder, depressed F31.9 ; PTSD (post-traumatic stress disorder) F43.10 and Panic attacks F41.[address] [place] [address] [id number] Jul, Bipolar 1 disorder, depressed F31.[address] [place] [address] [id number] Jul, Anxiety F41.9 ; COPD mixed type J44.9 ; Essential hypertension I10 ; Bipolar 1 disorder F31.9 ; High risk medication use Z79.899 ; BMI 40.0-44.9, adult Z68.41 and Coronary artery disease involving coronary bypass graft of [place] heart without angina pectoris I25.[address] [place] [address] [id number] Jul, Chronic obstructive pulmonary disease with acute exacerbation J44.1 and Acute nasopharyngitis J00 [address] [place] [address] [id number] Jul, Anxiety F41.9 ; Mixed hyperlipidemia E78.2 and Bipolar 1 disorder F31.9 [facility] [employer] [address] [id number] [place] [address] Jun Bipolar 1 disorder F31.9 [facility] [employer] [address] [id number] [place] [address] [address] [place] [id number] [address] Jun, Anxiety F41.9 ; Elevated blood sugar R73.9 ; Mixed hyperlipidemia E78.2 ; COPD mixed type J44.9 ; Essential hypertension I10 ; Bipolar 1 disorder F31.9 ; Coronary artery disease involving coronary bypass graft of [place] heart without angina pectoris I25.810 ; High risk medication use Z79.899 ; Controlled substance agreement signed Z79.899 ; Elevated fasting glucose R73.01 ; Encounter for immunization Z23 and BMI 40.0-44.9, adult Z68.41 [facility] [id number] [place] [address] [id number] Jun, Elevated blood sugar R73.9 [facility] [id number] [place] [address] [id number] Jun, [facility] [id number] [place] [address] [phone] Jun, Bipolar 1 disorder F31.9 ; Obesity (BMI 30-39.9) E66.9 ; Coronary artery disease involving coronary bypass graft of [place] heart without angina pectoris I25.810 and Essential hypertension I10 [facility] [id number] [place] [address] [id number] Jun, Coronary artery disease involving coronary bypass graft of [place] heart without angina pectoris I25.810 ; Bipolar 1 disorder F31.9 ; Anxiety F41.9 ; Essential hypertension I10 ; COPD mixed type J44.9 and Mixed hyperlipidemia E78.2 [facility] [id number] [place] [address] [phone] May, Severe single current episode of major depressive disorder, 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.2 ; Bipolar 1 disorder F31.9 ; Anxiety F41.9 ; PTSD (post -traumatic stress disorder) F43.10 ; Coronary artery disease involving coronary bypass graft of [place] heart without angina pectoris I25.810 ; Sleep apnea in adult G47.30 ; Essential hypertension I10 ; High risk medication use Z79.899 ; Obesity (BMI 30-39.9) E66.9 ; Encounter for therapeutic drug level monitoring Z51.81 and COPD mixed type J44.9 [facility] [id number] [place] [address] [id number] May, Severe single current episode of major depressive disorder, 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.2 ; Bipolar 1 disorder F31.9 ; Anxiety F41.9 ; PTSD (post -traumatic stress disorder) F43.10 ; Mixed hyperlipidemia E78.2 ; Coronary artery disease involving coronary bypass graft of [place] heart without angina pectoris I25.810 ; Sleep apnea in adult G47.30 ; Essential hypertension I10 ; High risk medication use Z79.899 ; Controlled substance agreement signed Z79.899 ; Obesity (BMI 30-39.9) E66.9 ; Tobacco abuse Z72.0 ; Tobacco abuse counseling Z71.6 and COPD mixed type J44.9 [facility] [id number] [place] [address] [phone] May, [facility] [address] [id number]- 8025 Dec, [facility] [id number] [place] [address] 00319- 4922 Dec, [facility] [id number] [place] [address] 75990- 4925 May, [facility] [id number] [place] [address] 59815- 9841 May, [facility] [id number] [place] [address] [id number] Dec, [facility] [id number] [place] [address] 55211- 2473 Dec, [facility] [id number] [place] [address] [id number] Dec, [facility] [id number] [place] [address] [id number]- 7564 Dec, [facility] [id number] [place] [address] 546465- 4926 Dec, [facility] [id number] [place] [address] [id number]- 1145 Dec, [facility] [id number] [place] [address] [id number]- 9326 Nov, [facility] [address] [place] [address] [id number] [id number] 17 Nov, 2013 [facility] [address] [id number] [place] [id number] Nov, [facility] [address] [id number] [place] [id number] Nov, [facility] [place] [facility] [address] [facility] [id number] [place] [address] 2546 Nov, [facility] [place] [facility] [address] [facility] [id number] [place] [address] 2546 Nov, [facility] [place] [facility] [address] [facility] [id number] [place] [address]- 3196 Nov, [facility] [place] [facility] [address] [facility] [id number], [place] [address]- 5576 Nov, [facility] [place] [facility] [address] [id number], [place] [address]- 5162 Nov, [facility] [place] [facility] [address] [facility] [id number] [address]- 9706 Nov, [facility] [address] [facility] [id number] [place] [id number] Nov, [facility] [address] [facility] [id number], [place] [id number] Oct, [facility] [place] [facility] [address] [id number], [place] [address]- 2546 Oct, [facility] [address] [facility] [id number][place] [id number] Oct, [facility] [place] [facility] [address] [facility] [id number], [place] [address]- 8336 Oct, [facility] [place] [facility] [address] [facility] [id number], [place] [address]- 2546 Oct, [facility] [address] [facility] [id number][place] [address] Sep, [facility] [place] [facility] [address] [id number], [place] [address]- 4918 Sep, [facility] [address] [id number] [place] [id number] Sep, [facility] [place] [facility] [address] [facility] [id number] [place] [address]- 2546 Sep, [facility] [place] [facility] [address] [facility] [id number] [place] [address]- 2546 Sep, [facility] [place] [facility] [address] [facility] [id number] [place] [address]- 2546 Sep, [facility] [place] [facility] [address] [facility] [id number] [place] [address]- 2546 Aug, [facility] [address] [id number] [place] [id number] Aug, [facility] [address] [place] [address]- 2546 Aug, [facility] [address] [id number][place] [id number] Jul, [facility] [address] [facility] [id number], [place] [address]- 2546 Jul, [facility] [address] [id number], [place] [id number] Jul, [facility] [address] [facility] [id number], [place] [address]- 2546 Jul, [facility] [place] [facility] [address] [id number], [place] [address]- 2546 May, [facility] [place] [facility] [address] [facility] [id number], [place] [address]- 2546 Apr, [facility] [place] [facility] [address] [facility] [id number] [address]- 2546 Apr, [facility] [place] [facility] [address] [facility] [id number] [address]- 2546 Mar, [facility] [address] [facility] [id number], [place] [id number] Feb, [facility] [address] [id number] [place] [id number] Feb, [facility] [address] [id number] [place] [id number] Feb, [facility] [address] [facility] [id number], [place] [address]- 0561 Feb, [facility] [address] [facility] [id number], [place] 35495888- 7697 January, [facility] [place] [facility] [address] [facility] [id number], [place] 05340352- 7677 January, [facility] [address] [id number] [place] [id number] Dec, [facility] [address] [id number] [place] [id number] Dec, [facility] [address] [id number] [place] 064875879 Dec, [facility] [address] [id number] [place] [id number] Dec, [facility] [address] [id number] [place] 7674144[address] Dec, [facility] [address] [id number] [place] [id number] Dec, [facility] [address]00565100[place], [place] [address]- 2591 Dec, [facility] [place] [facility] [address] [facility] [id number], [place] [address]- 1305 Dec, [facility] [address] [id number], [place] [id number] Nov, [facility] [address] [id number] [place] [id number] Nov, [facility] [address] [facility] [id number], [place] 029311970 Nov, [facility] [address]00565100[place] [address]- 9687 Oct, [facility] [address] [id number], [place] [address]- 2546 Oct, [facility] [address] [id number] [place] [address]- 2546 Sep, [facility] [place] [facility] [address] [facility] [id number], [place] [address]- 2726 Aug, [facility] [place] [facility] [address] [facility] [id number] [place] [address]- 2546 Aug, [facility] [place] [facility] [address] [facility] [id number], [place] [address]- 2546 Aug, [facility] [place] [facility] [address] [facility] [id number], [place] [address]- 7466 Aug, [facility] [address] [facility] [id number], [place] [id number] Aug, [facility] [place] [facility] [address]00565100[place], [place] [address]- 7846 Aug, [facility] [place] [facility] [address] [facility] [id number], [place] [address]- 1286 Jul, [facility] [place] [facility] [address] [facility] [id number], [place] [address]- 0526 Jul, [facility] [place] [facility] [address] [facility] [id number], [place] [address]- 2546 Jul, [facility] [address] [facility] [id number], [place] [address]- 2546 Jul, [facility] [address] [facility] [id number], [place] [id number] Jun, [facility] [address] [facility] [id number], [place] [id number] Jun, [facility] [place] [facility] [address] [facility] [id number], [place] [address]- 2546 Jun, [facility] [address] [facility] [id number], [place] 279869965 Apr, [facility] [place] [facility] [address] [facility] [id number][place] [address]- 2546 Apr, [facility] [place] [facility] [address] [id number], [place] [address]- 1316 Mar, [facility] [address] [id number] [place] [id number] Feb, [facility] [address] [id number] [place] [id number] Feb, [facility] [place] [facility] [address] [facility] [id number], [place] [address]- 0946 Feb, [facility] [address] [id number] [place] [id number] Feb, [facility] [place] [facility] [address] [facility] [id number], [place] [address]- 1796 Feb, [facility] [place] [facility] [address] [facility] [id number], [place] [address]- 6396 Feb, [facility] [place] [facility] [address] [id number], [place] [address]- 2086 Feb, [facility] [place] [facility] [address] [facility] [id number], [place] [address]- 6686 Feb, [facility] [address] [id number], [place] 568183059 January, [facility] [address] [id number], [place] 582344258 Dec, [facility] [place] [facility] [address] [facility] [id number], [place] [address]- 3016 Dec, [facility] [place] [facility] [address] [facility] [id number][place] [address]- 2546 Dec, [facility] [address] [id number], [place] 499322603 Dec, [facility] [place] [facility] [address] [facility] [id number], [place] [address]- 2546 Dec, [facility] [address] [id number] [place] [id number] Dec, [facility] [address] [id number] [place] 779739487 Nov, [facility] [address] [id number] [place] 934757776 Nov, [facility] [place] [address] [id number] [place] [id number] Nov, [facility] [place] [address] [id number] [place] 480212802 Nov, [facility] [address] [facility] [id number], [place] [address]- 2546 Oct, [facility] [address] [id number] [place] [id number] Oct, [facility] [address] [id number] [place] 739392023 Oct, [facility] [address] [id number] [place] [id number] Oct, [facility] [address] [id number] [place] [id number] Oct, [facility] [address] [id number] [place] 723608295 Sep, [facility] [address] [id number] [place] [id number] Sep, [facility] [place] [facility] [address]00565100[place]- 6191 Sep, [facility] [place] [facility] [address]00565100[place], [place] [address]- 5553 Sep, [facility] [place] [facility] [address]00565100[place], [place] [address]- 4288 Sep, [facility] [place] [facility] [address] [facility] [id number], [place] [address]- 8269 Sep, [facility] [place] [facility] [address]00565100[place], [place] [address]- 3601 Aug, [facility] [place] [facility] [address]00565100[place], [place] [address]- 8186 Aug, [facility] [place] [facility] [address] [id number] [place] [address]- 5632 Aug, [facility] [place] [facility] [address] [id number] [place] [address]- 2368 Aug, [facility] [place] [facility] [address] [id number] [place] [address]- 8863 Aug, [facility] [place] [facility] [address] [id number] [place] [address]- 4355 Aug, [facility] [place] [facility] [address] [id number] [place] [address]- 8292 Aug, [facility] [place] [facility] [address] [id number] [place] [address]- 4788 Aug, [facility] [place] [facility] [address] [id number] [place] [address]- 9324 Jun, [facility] [place] [facility] [address] [id number] [place] [address]- 3334 27 Jun, 2011 [facility] [place] [facility] [address] [id number] [place] [address]- 6029 Jun, [facility] [place] [facility] [address] [id number] [place] [address]- 4584 19 Jun, 2011 [facility] [place] [facility] [address] [id number] [place] [address]- 8914 14 Jun, 2011 [facility] [place] [facility] [address] [id number] [place] [address] 13 Jun, 2011 [facility] [place] [facility] [address] [id number], [place] [address] 12 Jun, 2011 [facility] [place] [facility] [address] [id number] [place] [address] 12 Jun, 2011 [facility] [place] [facility] [address] [id number], [place] [address] 12 Jun, 2011 [facility] [place] [facility] [address] [id number], [place] [address] 14 May, 2011 [facility] [place] [facility] [id number] [address] Apr, [facility] [id number] [address] 16 Feb, 2011 [facility] [id number] [address] Dec, [facility] [id number] [address] Aug, [facility] [id number] [address] Aug, [facility] [id number] [place] [address] Aug, [facility] [id number] [place] [address] Aug, [facility] [id number], [place] [address] Jul, [facility] [id number], [place] [address] Jun, [facility] [id number] [id number] Jun, IMMUNIZATIONS No Known Immunizations SOCIAL HISTORY Never Assessed REASON FOR VISIT per lab results PLAN OF CARE VITAL SIGNS MEDICATIONS Unknown [...] Coronary atherosclerosis of unspecified type of vessel, [place] or graft Medical History Coronary atherosclerosis of unspecified type of vessel, [place] or graft Surgical History section x4 Surgical History CABG x3 Surgical History Left arm-Plate and screws placed Hospitalization History Surgery(s)/Childbirth(s) only
--- OUTSIDE RECORDS SUMMARY | 2019-02-02 14:10 | XMS REPORT ---
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 Name Role Phone ЕКАТЕРИНА MTZ Unavailable PROBLEMS Type Condition ICD9-CM Code INR70-EY Code Onset Dates Condition Status SNOMED Code Problem Coronary artery disease involving coronary bypass graft of [place] heart without angina pectoris I25.810 Active 900296047 Problem Chronic obstructive pulmonary disease with acute exacerbation J44.1 Active 895221619 Problem Mixed hyperlipidemia E78.2 Active 514962746 Problem Bipolar disorder, in partial remission, most recent episode depressed F31.75 Active 06819630 Problem Claudication I73.9 Active 873529983 Problem MESERET (generalized anxiety disorder) F41.1 Active 17297291 Problem Panic disorder F41.0 Active 397284888 Problem Coronary artery disease involving [place] coronary artery of [place] heart without angina pectoris I25.10 Active 6436225855819 Problem Mood disorder F39 Active 26234679 Problem Obesity (BMI 30-39.9) E66.9 Active 490213401 Problem Bipolar 1 disorder F31.9 Active 303297696 Problem PTSD (post-traumatic stress disorder) F43.10 Active 07609688 Problem Sleep apnea in adult G47.30 Active 61161875 Problem Essential hypertension I10 Active 85924179 Problem COPD mixed type J44.9 Active 25229686 ALLERGIES No Information ENCOUNTERS Encounter Location Date Diagnosis [facility] [address] [facility] [id number], [place] [address] Feb, [facility] [address] [facility] [id number], [place] [address] Feb, [address] [id number] [id number] Feb, [facility] [address] [facility] [id number] [place] [address]99- 1663 January, High risk medication use Z79.899 ; Bipolar disorder, in partial remission, most recent episode depressed F31.75 ; MESERET (generalized anxiety disorder) F41.1 ; Panic disorder F41.0 and BMI 45.0-49.9, adult Z68.42 [place] [address] [place] [address] 49716- 0995 January, Bipolar 1 disorder, depressed F31.9 ; PTSD (post-traumatic stress disorder) F43.10 and Panic attacks F41.0 [place] [address] [place] [id number] [place] [address] 33191- 9433 January, Bipolar 1 disorder, depressed F31.9 ; PTSD (post-traumatic stress disorder) F43.10 and Panic attacks F41.0 [place] [address] [place] [id number] [place] [address] 83739- 8278 Dec, BMI 45.0-49.9, adult Z68.42 ; Bipolar disorder, in partial remission, most recent episode depressed F31.75 ; MESERET (generalized anxiety disorder) F41.1 and Panic disorder F41.0 [place] [address] [id number] [place] [address] 53576- 0259 Dec, Bipolar 1 disorder, depressed F31.9 ; PTSD (post-traumatic stress disorder) F43.10 and Panic attacks F41.0 [place] [id number] [place] [address] 88954- 7934 Nov, Bipolar disorder, in partial remission, most recent episode depressed F31.75 ; MESERET (generalized anxiety disorder) F41.1 and Panic disorder F41.0 [place] [address] [place] [id number] [place] [address] 04761- 6378 Nov, [place] [address] [place] [id number] [place] [address] 96056- 9415 Nov, [place] [address] [place] [id number] [place] [address] 79444- 2371 Oct, BMI 45.0-49.9, adult Z68.42 ; Bipolar disorder, in partial remission, most recent episode depressed F31.75 ; MESERET (generalized anxiety disorder) F41.1 and Panic disorder F41.0 [facility] [address] [facility] [address] [id number] [id number] 23 Oct, 2017 BMI 45.0-49.9, adult Z68.42 ; Coronary artery disease involving [place] coronary artery of [place] heart without angina pectoris I25.10 ; Hx of CABG Z95.1 ; Dyspnea on exertion R06.09 ; Essential hypertension I10 ; Mixed hyperlipidemia E78.2 ; Claudication I73.9 and Tobacco use Z72.0 [facility] [address] [facility] [id number] [id number] 15 Oct, 2017 BMI 45.0-49.9, adult Z68.42 ; Bipolar 1 disorder, depressed F31.9 and Abscess L02.91 [place] [id number] [place] [address] 01103- 9337 14 Oct, 2017 Bipolar 1 disorder, depressed F31.9 ; PTSD (post-traumatic stress disorder) F43.10 and Panic attacks F41.0 [place] [id number] [place] [address] 59943- 5463 Sep, BMI 40.0-44.9, adult Z68.41 ; Mood disorder F39 ; MESERET ( generalized anxiety disorder) F41.1 and Panic disorder F41.0 [facility] [id number] [place] [address] 20786- 5165 Sep, BMI 40.0-44.9, adult Z68.41 [facility] [address] [place] [address] 05547- 4399 Sep, Bipolar 1 disorder, depressed F31.9 ; PTSD (post-traumatic stress disorder) F43.10 and Panic attacks F41.0 [facility] [address] [place] [address] 76463- 7745 Aug, BMI 40.0-44.9, adult Z68.41 ; Mood disorder F39 ; MESERET ( generalized anxiety disorder) F41.1 and Panic disorder F41.0 [facility] [address] [place] [address] 79954- 0691 Aug, Bipolar 1 disorder, depressed F31.9 ; PTSD (post-traumatic stress disorder) F43.10 and Panic attacks F41.[address] [place] [address] [id number] Aug, [place] [id number] [place] [address] [id number] Aug, COPD mixed type J44.9 [facility] [address] [place] [id number] [place] [address] 30621- 7922 Aug, [place] [address] [place] [id number] [place] [address] 98851- 3016 Jul, PTSD (post-traumatic stress disorder) F43.10 ; Panic disorder F41.0 ; MESERET (generalized anxiety disorder) F41.1 ; Mood disorder F39 and BMI 40.0-44.9, adult Z68.41 [facility] [address] [place] [address] 61099- 7495 Jul, Bipolar 1 disorder, depressed F31.9 ; PTSD (post-traumatic stress disorder) F43.10 and Panic attacks F41.[address] [place] [address] [id number] Jul, Bipolar 1 disorder, depressed F31.[address] [place] [address] [id number] Jul, Anxiety F41.9 ; COPD mixed type J44.9 ; Essential hypertension I10 ; Bipolar 1 disorder F31.9 ; High risk medication use Z79.899 ; BMI 40.0-44.9, adult Z68.41 and Coronary artery disease involving coronary bypass graft of [place] heart without angina pectoris I25.[address] [place] [address] [id number] 06 Jul, 2017 Chronic obstructive pulmonary disease with acute exacerbation J44.1 and Acute nasopharyngitis J00 [facility] [address] [facility] [id number] [id number] Jul, Anxiety F41.9 ; Mixed hyperlipidemia E78.2 and Bipolar 1 disorder F31.9 [facility] [address] [id number] [place] [address] Jun Bipolar 1 disorder F31.9 [facility] [address] [id number] [place] [address] Jun [place] [address] [place] [id number] [id number] Jun, Anxiety F41.9 ; Elevated blood sugar R73.9 ; Mixed hyperlipidemia E78.2 ; COPD mixed type J44.9 ; Essential hypertension I10 ; Bipolar 1 disorder F31.9 ; Coronary artery disease involving coronary bypass graft of [place] heart without angina pectoris I25.810 ; High risk medication use Z79.899 ; Controlled substance agreement signed Z79.899 ; Elevated fasting glucose R73.01 ; Encounter for immunization Z23 and BMI 40.0-44.9, adult Z68.41 [facility] [id number] [place] [address] [id number] Jun, Elevated blood sugar R73.[address] [place] [address] [id number] Jun, [address] [place] [address] [id number] Jun, Bipolar 1 disorder F31.9 ; Obesity (BMI 30-39.9) E66.9 ; Coronary artery disease involving coronary bypass graft of [place] heart without angina pectoris I25.810 and Essential hypertension I10 [facility] [address] [place] [id number] [address] Jun, Coronary artery disease involving coronary bypass graft of [place] heart without angina pectoris I25.810 ; Bipolar 1 disorder F31.9 ; Anxiety F41.9 ; Essential hypertension I10 ; COPD mixed type J44.9 and Mixed hyperlipidemia E78.2 [facility] [address] [place] [id number] [id number] May, Severe single current episode of major depressive disorder, 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.2 ; Bipolar 1 disorder F31.9 ; Anxiety F41.9 ; PTSD (post -traumatic stress disorder) F43.10 ; Coronary artery disease involving coronary bypass graft of [place] heart without angina pectoris I25.810 ; Sleep apnea in adult G47.30 ; Essential hypertension I10 ; High risk medication use Z79.899 ; Obesity (BMI 30-39.9) E66.9 ; Encounter for therapeutic drug level monitoring Z51.81 and COPD mixed type J44.9 [place] [id number] [place] [address] [id number] May, Severe single current episode of major depressive disorder, 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.2 ; Bipolar 1 disorder F31.9 ; Anxiety F41.9 ; PTSD (post -traumatic stress disorder) F43.10 ; Mixed hyperlipidemia E78.2 ; Coronary artery disease involving coronary bypass graft of [place] heart without angina pectoris I25.810 ; Sleep apnea in adult G47.30 ; Essential hypertension I10 ; High risk medication use Z79.899 ; Controlled substance agreement signed Z79.899 ; Obesity (BMI 30-39.9) E66.9 ; Tobacco abuse Z72.0 ; Tobacco abuse counseling Z71.6 and COPD mixed type J44.9 [place] [id number] [place] [address] [id number] May, [facility] [address] [place] [id number] [place] [address] 60948751- 0453 Dec, [facility] [address] [place] [id number] [place] [address] 38026- 7836 Dec, [facility] [address] [id number] 7896 May, [facility] [address] [place] [id number] [place] [address] 48519- 5937 May, [place] [id number] [place] [address] [id number] Dec, [facility] [address] [address]342- 9429 Dec, [address] [id number] Dec, [facility] [place] [facility] [address] [id number] [place] [address]- 2546 Dec, [facility] [place] [facility] [address] [facility] [id number] [place] [address]- 2546 Dec, [facility] [place] [facility] [address] [facility] [id number] [place] [address]- 2546 Dec, [facility] [place] [facility] [address] [id number] [place] [address]- 2546 Nov, [facility] [address] [id number] [place] [id number] Nov, [facility] [address] [id number] [place] [id number] Nov, [facility] [address] [id number] [place] [id number] Nov, [facility] [place] [facility] [address] [facility] [id number], [place] [address] 2546 Nov, [facility] [place] [facility] [address] [facility] [id number] [place] [address]- 4666 Nov, [facility] [place] [facility] [address] [facility] [id number] [place] [address]- 1426 Nov, [facility] [place] [facility] [address] [facility] [id number], [place] [address] 2546 15 Nov, 2013 [facility] [place] [facility] [address] [facility] [id number], [place] [address]- 2546 Nov, [facility] [place] [facility] [address] [facility] [id number] [place] [address]- 2546 Nov, [facility] [address] [id number] [place] [id number] Nov, [facility] [address] [id number] [place] [id number] Oct, [facility] [place] [facility] [address] [facility] [id number] [place] [address] 2016 Oct, [facility] [address] [id number][place] [id number] Oct, [facility] [place] [facility] [address] [id number] [place] [address]- 3006 Oct, [facility] [place] [facility] [address] [facility] [id number] [place] [address]- 1976 Oct, [facility] [address] [facility] [id number][place] [id number] Sep, [facility] [place] [facility] [address] [id number], [place] [address]- 3496 Sep, [facility] [address] [facility] [id number], [place] [id number] Sep, [facility] [place] [facility] [address] [place] [id number], [place] [address]- 3466 Sep, [facility] [place] [facility] [address]00565[address], [place] [address]- 6486 Sep, [facility] [place] [facility] [address] [facility] [id number], [place] [address]- 6066 Sep, [facility] [place] [facility] [address], [place] [address]- 8456 Aug, [facility] [address] [facility] [id number][place] [id number] Aug, [facility] [place] [facility] [address] [place] [id number], [place] [address]- 2546 Aug, [facility] [address] [facility] [id number], [place] [address] Jul, [facility] [place] [facility] [address] [id number], [place] [address]- 3876 Jul, [facility] [address] [facility] [id number][place] [address] Jul, [facility] [place] [facility] [address] [place] [id number], [place] [address]- 6896 Jul, [facility] [place] [facility] [address]005[address], [place] [address]- 3955 May, [facility] [address] [facility] [id number], [place] [address]- 2190 Apr, [facility] [place] [facility] [address] [facility] [id number], [place] [address]- 4994 Apr, [facility] [address] [facility] [id number], [place] [address]- 6217 Mar, [facility] [address] [id number][place] [id number] Feb, [facility] [address] [id number] [place] [id number] Feb, [facility] [address] [id number], [place] [address] Feb, [facility] [address]005[address], [place] [address]- 0304 Feb, [facility] [address] [place] [address] [id number], [place] [address]- 3502 January, [facility] [address] [place] [address] [id number], [place] [address]- 4019 January, [facility] [address] [id number][place] [address] Dec, [facility] [address] [id number], [place] [address] Dec, [facility] [address] [id number][place] [address] Dec, [facility] [address] [id number], [place] 488[address] Dec, [facility] [address] [id number] [place] [address] Dec, [facility] [address] [id number] [place] [address] Dec, [facility] [place] [facility] [address] [place] [id number], [place] [address] 2546 Dec, [facility] [place] [facility] [address] [facility] [id number], [place] [address]- 2546 Dec, [facility] [address] [id number] [place] [id number] Nov, [facility] [address] [id number] [place] [id number] Nov, [facility] [address] [facility] [id number] [place] [id number] Nov, [facility] [place] [facility] [address] [facility] [id number], [place] [address]- 2546 Oct, [facility] [place] [facility] [address] [facility] [id number], [place] [address]- 2546 Oct, [facility] [place] [facility] [address] [place] [address] [id number], [place] [address]- 9036 Sep, [facility] [place] [facility] [address]005[address], [place] [address]- 3206 Aug, [facility] [place] [facility] [address] [facility] [id number], [place] [address]- 3828 Aug, [facility] [place] [facility] [address] [place] [address] [id number], [place] [address]- 4289 Aug, [facility] [place] [facility] [address] [place] [address] [id number], [place] [address]- 1462 Aug, [facility] [address] [facility] [id number], [place] [address]898920[address] Aug, [facility] [place] [facility] [address] [facility] [id number], [place] [address]- 2458 Aug, [facility] [place] [facility] [address] [facility] [id number], [place] [address]- 6721 Jul, [facility] [place] [facility] [address] [facility] [id number], [place] [address]- 7786 Jul, [facility] [place] [facility] [address] [facility] [id number], [place] [address]- 0306 Jul, [facility] [place] [facility] [address] [facility] [id number], [place] [address]- 2546 Jul, [facility] [address] [id number] [place] [id number] Jun, [facility] [address] [facility] [id number] [place] [id number] Jun, [facility] [place] [facility] [address] [facility] [id number] [place] [address] 2546 Jun, [facility] [address] [facility] [id number] [place] [id number] Apr, [facility] [place] [facility] [address] [facility] [id number], [place] [address] 2546 Apr, [facility] [place] [facility] [address] [place] [address] [id number] [place] [address]- 2546 Mar, [facility] [id number] [place] [id number] Feb, [facility] [id number], [place] 77[address]797 Feb, [facility] [place] [facility] [address]00565100[place], [place] [address]- 4875 Feb, [facility] [id number], [place] [address] Feb, [facility] [place] [facility] [address]00565100[place], [place] [address]- 7946 Feb, [facility] [place] [facility] [address]00565100[place], [place] [address]- 8519 Feb, [facility] [place] [facility] [address] [facility] [id number], [place] [address] 2546 Feb, [facility] [place] [facility] [address] [facility] [id number], [place] [address]- 0963 Feb, [facility] [address] [facility] [id number][place] [address] January, [facility] [address] [place] [address] [id number] [address]386[address]782 Dec, [facility] [place] [facility] [address]00565100[place], [place] [address]- 9338 Dec, [facility] [address] [facility] [id number], [place] [address]- 1677 Dec, [facility] [address] [id number] [place] [address] Dec, [facility] [address] [facility] [id number], [place] [address]- 8417 Dec, [facility] [address] [id number] [place] [id number] Dec, [facility] [address] [id number] [place] [address]26[place] Nov, [facility] [address] [id number] [place] [id number] Nov, [facility] [address] [id number] [place] 14[address] Nov, [facility] [address] [id number] [place] 426[address] Nov, [facility] [address]00565100[place], [place] [address]- 8364 Oct, [facility] [address] [id number] [place] [id number] Oct, [facility] [address] [id number] [place] 4609[address] Oct, [facility] [address] [id number] [place] [id number] Oct, [facility] [address] [id number] [place] [id number] Oct, [facility] [address] [id number] [place] 600[address]368 Sep, [facility] [id number], [place] [address]65[address] Sep, [facility] [address], [place] [address]- 0551 Sep, [facility] [address]00565100[place], [place] [address]- 7401 Sep, [facility] [address] [id number] [place] [address]- 8427 Sep, [facility] [place] [facility] [address] [id number] [place] [address]- 5664 Sep, [facility] [place] [facility] [address] [id number] [place] [address]- 3065 Aug, [facility] [place] [facility] [address] [id number] [place] [address]- 3096 Aug, [facility] [place] [facility] [address] [id number] [place] [address]- 0821 Aug, [facility] [place] [facility] [address] [id number] [place] [address]- 6792 Aug, [facility] [place] [facility] [address] [id number] [place] [address]- 4524 Aug, [facility] [place] [facility] [address] [id number] [place] [address]- 3590 Aug, [facility] [place] [facility] [address] [id number] [place] [address]- 4168 Aug, [facility] [place] [facility] [address] [id number] [place] [address]- 8086 Aug, [facility] [place] [facility] [address] [id number], [place] [address]- 5356 Jun, [facility] [place] [facility] [address] [id number], [place] [address]- 5727 27 Jun, 2011 [facility] [place] [facility] [address] [id number] [place] [address]- 7831 19 Jun, 2011 [facility] [place] [facility] [address] [id number], [place] [address] 19 Jun, 2011 [facility] [place] [facility] [address] [id number], [place] [address] 14 Jun, 2011 [facility] [place] [facility] [id number], [place] [address] 13 Jun, 2011 [facility] [id number], [place] [address] Jun, [facility] [id number] [address] Jun, [facility] [id number] [address] [address] Jun, [facility] [id number], [place] [address] 14 May, 2011 [facility] [id number] [place] [id number] Apr, [facility] [id number], [place] [address] 16 Feb, 2011 [facility] [id number] [place] [address] [id number]- [address] Dec, [facility] [id number], [place] [address] Aug, [facility] [id number], [place] [address] Aug, [facility] [id number], [place] [address] Aug, [facility] [id number] [address] Aug, [facility] [id number], [place] [address] Jul, [facility] [id number] [address] Jun, [facility] [id number], [place] [address] Jun, IMMUNIZATIONS No Known Immunizations SOCIAL HISTORY Never Assessed REASON FOR VISIT Medication PLAN OF CARE VITAL SIGNS MEDICATIONS Unknown [...] Coronary atherosclerosis of unspecified type of vessel, [place] or graft Medical History Coronary atherosclerosis of unspecified type of vessel, [place] or graft Surgical History section x4 Surgical History CABG x3 Surgical History Left arm-Plate and screws placed Hospitalization History Surgery(s)/Childbirth(s) only
--- OUTSIDE RECORDS SUMMARY | 2019-02-02 14:11 | XMS REPORT ---
Author Author ЕКАТЕРИНА MTZ [facility] Address [address] [place] [address] Care Team Providers Care Chief Technician Name Role Phone ЕКАТЕРИНА MTZ Unavailable PROBLEMS Type Condition ICD9-CM Code SEP70-CX Code Onset Dates Condition Status SNOMED Code Problem Coronary artery disease involving coronary bypass graft of tanana heart without angina pectoris I25.810 Active 763888462 Problem Chronic obstructive pulmonary disease with acute exacerbation J44.1 Active 448039613 Problem Mixed hyperlipidemia E78.2 Active 020151337 Problem Bipolar disorder, in partial remission, most recent episode depressed F31.75 Active 85735670 Problem Claudication I73.9 Active 594227905 Problem MESERET (generalized anxiety disorder) F41.1 Active 57441317 Problem Panic disorder F41.0 Active 269788301 Problem Coronary artery disease involving tanana coronary artery of tanana heart without angina pectoris I25.10 Active 6704351241915 Problem Mood disorder F39 Active 06889004 Problem Obesity (BMI 30-39.9) E66.9 Active 221613979 Problem Bipolar 1 disorder F31.9 Active 394126941 Problem PTSD (post-traumatic stress disorder) F43.10 Active 51724805 Problem Sleep apnea in adult G47.30 Active 68140697 Problem Essential hypertension I10 Active 09903774 Problem COPD mixed type J44.9 Active 60380285 ALLERGIES No Information ENCOUNTERS Encounter Location Date Diagnosis [facility] [address] [facility] [id number] [address] Feb, [address] [id number] [id number] Feb, [facility] [address] [facility] [id number], [place] [address] January, [facility] [address] [facility] [id number], [place] [address] January, Bipolar 1 disorder, depressed F31.9 ; PTSD (post-traumatic stress disorder) F43.10 and Panic attacks F41.0 [place] [address] [address] January, Bipolar 1 disorder, depressed F31.9 ; PTSD (post-traumatic stress disorder) F43.10 and Panic attacks F41.0 [place] [address] [place] [address] Dec, BMI 45.0-49.9, adult Z68.42 ; Bipolar disorder, in partial remission, most recent episode depressed F31.75 ; MESERET (generalized anxiety disorder) F41.1 and Panic disorder F41.0 [place] [address], [place] [address] Dec, Bipolar 1 disorder, depressed F31.9 ; PTSD (post-traumatic stress disorder) F43.10 and Panic attacks F41.0 [place] [address], [place] [address] Nov, Bipolar disorder, in partial remission, most recent episode depressed F31.75 ; MESERET (generalized anxiety disorder) F41.1 and Panic disorder F41.0 [place] [address] [address] Nov, [place] [id number] [place] [address]- 5068 Nov, [place] [address] [id number] [address] Oct, BMI 45.0-49.9, adult Z68.42 ; Bipolar disorder, in partial remission, most recent episode depressed F31.75 ; MESERET (generalized anxiety disorder) F41.1 and Panic disorder F41.[address] [id number] [id number] Oct, BMI 45.0-49.9, adult Z68.42 ; Coronary artery disease involving tanana coronary artery of tanana heart without angina pectoris I25.10 ; Hx of CABG Z95.1 ; Dyspnea on exertion R06.09 ; Essential hypertension I10 ; Mixed hyperlipidemia E78.2 ; Claudication I73.9 and Tobacco use Z72.0 [facility] [address] [id number] [address] 15 Oct, 2017 BMI 45.0-49.9, adult Z68.42 ; Bipolar 1 disorder, depressed F31.9 and Abscess L02.91 [place] [address] [place] [address]78- 6[address] 14 Oct, 2017 Bipolar 1 disorder, depressed F31.9 ; PTSD (post-traumatic stress disorder) F43.10 and Panic attacks F41.0 [place] [address] [place] [address]93- 9989 Sep, BMI 40.0-44.9, adult Z68.41 ; Mood disorder F39 ; MESERET ( generalized anxiety disorder) F41.1 and Panic disorder F41.0 [place] [address] [id number] [place] [address]- 4090 Sep, BMI 40.0-44.9, adult Z68.41 [place] [address] [place] [address] 10629- 7716 Sep, Bipolar 1 disorder, depressed F31.9 ; PTSD (post-traumatic stress disorder) F43.10 and Panic attacks F41.0 [place] [address] [place] [address] 66960- 6255 Aug, BMI 40.0-44.9, adult Z68.41 ; Mood disorder F39 ; MESERET ( generalized anxiety disorder) F41.1 and Panic disorder F41.0 [place] [address] [place] [address]896- 1531 Aug, Bipolar 1 disorder, depressed F31.9 ; PTSD (post-traumatic stress disorder) F43.10 and Panic attacks F41.0 [facility] [address] [id number] [id number] Aug, [facility] [address] [id number] [address] Aug, COPD mixed type J44.9 [facility] [address]00565100[place], [place] [address] Aug, [facility] [address] [place] [address] 81407- 8657 Jul, PTSD (post-traumatic stress disorder) F43.10 ; Panic disorder F41.0 ; MESERET (generalized anxiety disorder) F41.1 ; Mood disorder F39 and BMI 40.0-44.9, adult Z68.41 [place] [address]005[address], [place] [address] Jul, Bipolar 1 disorder, depressed F31.9 ; PTSD (post-traumatic stress disorder) F43.10 and Panic attacks F41.0 [address] [place] [address] [id number] Jul, Bipolar 1 disorder, depressed F31.9 [address] [place] [address] [id number] Jul, Anxiety F41.9 ; COPD mixed type J44.9 ; Essential hypertension I10 ; Bipolar 1 disorder F31.9 ; High risk medication use Z79.899 ; BMI 40.0-44.9, adult Z68.41 and Coronary artery disease involving coronary bypass graft of tanana heart without angina pectoris I25.810 [place] [id number] [address] Jul, Chronic obstructive pulmonary disease with acute exacerbation J44.1 and Acute nasopharyngitis J00 [place] [id number] [address] Jul, Anxiety F41.9 ; Mixed hyperlipidemia E78.2 and Bipolar 1 disorder F31.9 [facility] [address] [id number] [place] [address] Jun Bipolar 1 disorder F31.9 [facility] [address] [id number] [place] [address] Jun [place] [id number] [address] Jun, Anxiety F41.9 ; Elevated blood sugar R73.9 ; Mixed hyperlipidemia E78.2 ; COPD mixed type J44.9 ; Essential hypertension I10 ; Bipolar 1 disorder F31.9 ; Coronary artery disease involving coronary bypass graft of tanana heart without angina pectoris I25.810 ; High risk medication use Z79.899 ; Controlled substance agreement signed Z79.899 ; Elevated fasting glucose R73.01 ; Encounter for immunization Z23 and BMI 40.0-44.9, adult Z68.41 [address] [place] [address] [id number] Jun, Elevated blood sugar R73.9 [address] [place] [id number] Jun, [place] [id number] [place] [address] [id number] Jun, Bipolar 1 disorder F31.9 ; Obesity (BMI 30-39.9) E66.9 ; Coronary artery disease involving coronary bypass graft of tanana heart without angina pectoris I25.810 and Essential hypertension I10 [address] [place] [address] [id number] Jun, Coronary artery disease involving coronary bypass graft of tanana heart without angina pectoris I25.810 ; Bipolar 1 disorder F31.9 ; Anxiety F41.9 ; Essential hypertension I10 ; COPD mixed type J44.9 and Mixed hyperlipidemia E78.2 [address] [place] [address] [id number] May, Severe single current episode of major depressive disorder, 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.2 ; Bipolar 1 disorder F31.9 ; Anxiety F41.9 ; PTSD (post -traumatic stress disorder) F43.10 ; Coronary artery disease involving coronary bypass graft of tanana heart without angina pectoris I25.810 ; Sleep apnea in adult G47.30 ; Essential hypertension I10 ; High risk medication use Z79.899 ; Obesity (BMI 30-39.9) E66.9 ; Encounter for therapeutic drug level monitoring Z51.81 and COPD mixed type J44.9 [facility] [address] [place] [address] [id number] May, 2017 Severe single current episode of major depressive disorder, 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.2 ; Bipolar 1 disorder F31.9 ; Anxiety F41.9 ; PTSD (post -traumatic stress disorder) F43.10 ; Mixed hyperlipidemia E78.2 ; Coronary artery disease involving coronary bypass graft of tanana heart without angina pectoris I25.810 ; Sleep apnea in adult G47.30 ; Essential hypertension I10 ; High risk medication use Z79.899 ; Controlled substance agreement signed Z79.899 ; Obesity (BMI 30-39.9) E66.9 ; Tobacco abuse Z72.0 ; Tobacco abuse counseling Z71.6 and COPD mixed type J44.9 [facility] [id number] [place] [address] [id number] May, [facility] [id number] [place] [address] 0208 Dec, [facility] [id number] [place] [address] 70[address]- 2786 Dec, [facility] [id number] [place] [address] 02763- 4337 May, [facility] [id number] [place] [address] 66193- 5756 May, [facility] [id number] [place] [address] [id number] Dec, [facility] [id number] [place] [address] 15550- 4845 Dec, [facility] [address] [place] [address] [id number] Dec, [facility] [id number] [place] [address] 53342- 2925 Dec, [facility] [id number] [place] [address] 57127- 3753 Dec, [facility] [address] [id number], [place] [address]- 2546 Dec, [facility] [place] [facility] [address] [facility] [id number], [place] [address]- 6316 Nov, [facility] [place] [address] [facility] [id number] [place] [id number] Nov, [facility] [address] [facility] [id number] [place] [id number] Nov, [facility] [address] [facility] [id number] [place] [address] Nov, [facility] [place] [facility] [address] [facility] [id number] [place] [address] 2546 Nov, [facility] [place] [facility] [address] [facility] [id number] [place] [address] 2546 Nov, [facility] [place] [facility] [id number] [address] 2546 Nov, [facility] [place] [facility] [address] [id number] [address]- 9536 Nov, [facility] [place] [facility] [address] [id number] [address]- 2625 Nov, [facility] [place] [facility] [address] [id number], [place] [address]- 8836 Nov, [facility] [address] [id number] [address] Nov, [facility] [address] [facility] [id number][place] [id number] Oct, [facility] [place] [facility] [address] [facility] [id number][place] [address]- 2546 Oct, [facility] [address] [facility] [id number][place] [id number] Oct, [facility] [place] [facility] [address] [facility] [id number], [place] [address]- 2546 Oct, [facility] [place] [facility] [address], [place] [address]- 4491 Oct, [facility] [address] [facility] [id number] [place] [address] Sep, [facility] [address] [facility] [id number] [place] [address]- 5636 Sep, [facility] [address] [facility] [id number] [place] [id number] Sep, [facility] [place] [facility] [address] [place] [address], [place] [address]- 3469 Sep, [facility] [address] [id number] [place] [address]- 7018 Sep, [facility] [place] [facility] [address] [place] [address]- 2448 Sep, [facility] [id number] [place] [address]- 1482 Aug, [facility] [address] [id number] [id number] Aug, [facility] [address] [id number], [place] [address]- 1736 Aug, [facility] [address] [id number] [address] Jul, [facility] [address] [id number], [place] [address]- 0949 Jul, [facility] [address] [id number] [id number] Jul, [facility] [place] [facility] [address] [facility] [id number], [place] [address]- 9536 Jul, [facility] [place] [facility] [address] [facility] [id number], [place] [address]- 8744 May, [facility] [place] [facility] [address] [id number], [place] [address]- 8346 Apr, [facility] [place] [facility] [address] [id number], [place] [address]- 9015 Apr, [facility] [place] [facility] [address] [facility] [id number] [place] [address]- 2546 Mar, [facility] [address] [id number] [place] [address] Feb, [facility] [address] [id number] [place] [id number] Feb, [facility] [address] [id number] [place] 729588370 Feb, [facility] [address] [facility] [id number], [place] [address]- 0478 Feb, [facility] [place] [facility] [address] [facility] [id number], [place] [address]- 9890 January, [facility] [place] [facility] [address] [facility] [id number], [place] [address]- 6436 January, [facility] [address] [id number] [place] [address]44[address] Dec, [facility] [address] [id number] [place] 7536232[address] Dec, [facility] [address] [id number] [place] 693097[address] Dec, [facility] [address] [id number] [place] 617525561 Dec, [facility] [address] [id number] [place] 319988[address] Dec, [facility] [address] [id number] [place] [address]52115337 Dec, [facility] [place] [facility] [address] [facility] [id number][place] [address]- 2546 Dec, [facility] [place] [facility] [address] [facility] [id number], [place] [address]- 2546 Dec, [facility] [address] [id number] [place] [id number] Nov, [facility] [address] [id number] [place] 2223438[address] Nov, [facility] [address] [id number][place] [address] Nov, [facility] [place] [facility] [address] [facility] [id number][place] [address]- 2546 Oct, [facility] [place] [facility] [address] [facility] [id number], [place] [address]- 2546 Oct, [facility] [place] [facility] [address] [facility] [id number][place] [address]- 2546 Sep, [facility] [place] [facility] [address] [facility] [id number], [place] [address]- 2546 Aug, [facility] [place] [facility] [address] [facility] [id number] [place] [address]- 6496 Aug, [facility] [place] [facility] [address] [facility] [id number], [place] [address]- 1126 Aug, [facility] [address]00565[address], [place] [address]- 9636 Aug, [facility] [address] [address] Aug, [facility] [place] [facility] [address]00565100[place], [place] [address]- 6456 Aug, [facility] [place] [facility] [address]100[place], [place] [address]- 2546 Jul, [facility] [place] [facility] [address], [place] [address]- 2546 Jul, [facility] [place] [facility] [address] [facility] [id number], [place] [address]- 2546 Jul, [facility] [place] [facility] [address] [facility] [id number], [place] [address]- 2546 Jul, [facility] [address] [facility] [id number][place] [address] Jun, [facility] [address] [id number], [place] 206[address] Jun, [facility] [place] [facility] [address]100[place], [place] [address]- 2406 Jun, [facility] [address] [id number] [place] [address]447517[address] Apr, [facility] [place] [facility] [address] [facility] [id number] [place] [address]- 2546 Apr, [facility] [place] [facility] [address] [facility] [id number] [place] [address]- 2546 Mar, [facility] [address] [id number] [place] 5924[place]186 Feb, [facility] [address] [id number] [place] 914453551 Feb, [facility] [place] [facility] [address] [facility] [id number] [place] [address]- 9266 Feb, [facility] [address] [facility] [id number] [place] [address] Feb, [facility] [place] [facility] [address], [place] [address]- 4436 Feb, [facility] [place] [facility] [address] [facility] [id number], [place] [address]- 5681 Feb, [facility] [place] [facility] [address]005[address]100[place], [place] [address]- 0986 Feb, [facility] [place] [facility] [address] [facility] [id number], [place] [address]- 7749 Feb, [facility] [address] [facility] [id number] [place] [id number] January, [facility] [address] [facility] [id number][place] 384157237 Dec, [facility] [place] [facility] [address] [facility] [id number], [place] [address]- 9496 Dec, [facility] [place] [facility] [address] [facility] [id number], [place] [address]- 2546 Dec, [facility] [address] [facility] [id number] [place] [address]60878964 Dec, [facility] [place] [facility] [address] [facility] [id number], [place] [address]- 8494 Dec, [facility] [address] [id number] [place]156 Dec, [facility] [address] [id number] [place] [address]29325282 Nov, [facility] [address] [id number] [place] 125502844 Nov, [facility] [address] [id number] [place]957 Nov, [facility] [address] [id number] [place] [address] Nov, [facility] [address], [place] [address]- 0947 Oct, [facility] [address] [id number] [place] [address]50[address] Oct, [facility] [address] [id number] [place] [address] Oct, [facility] [address] [id number] [place] 783031751 Oct, [facility] [address] [id number] [place] 0[place]44 Oct, [facility] [address] [id number] [place] 357451930 Sep, [facility] [address] [id number] [place] 767797707 Sep, [facility] [address]005[address]100[place], [place] [address]- 0658 Sep, [facility] [address]100[place], [place] [address]- 3496 Sep, [facility] [id number] [place] [address] 27548- 3838 Sep, [facility] [address] [address]40[address]- 2041 Sep, [facility] [address] [place] [address] 05649- 7392 30 Aug, 2011 [facility] [place] [facility] [address] [id number] [place] [address]- 3741 Aug, [facility] [place] [facility] [address] [id number] [place] [address]- 3937 Aug, [facility] [place] [facility] [address] [id number] [place] [address]- 7971 Aug, [facility] [place] [facility] [address] [id number] [place] [address]- 1950 Aug, [facility] [place] [facility] [address] [id number] [place] [address]- 3594 Aug, [facility] [place] [facility] [address] [id number] [place] [address]- 7048 Aug, [facility] [place] [facility] [address] [id number] [place] [address]- 0254 Aug, [facility] [place] [facility] [address] [id number] [place] [address]- 2156 Jun, [facility] [place] [facility] [address] [id number] [place] [address]- 2640 27 Jun, 2011 [facility] [place] [facility] [address] [id number] [place] [address]- 5440 Jun, [facility] [place] [facility] [address] [id number][place] [address]- 5385 19 Jun, 2011 [facility] [place] [facility] [address] [id number], [place] [address]- 0738 14 Jun, 2011 [facility] [place] [facility] [address] [id number], [place] [address]- 7113 13 Jun, 2011 [facility] [place] [facility] [address] [id number], [place] [address]- 6744 12 Jun, 2011 [facility] [place] [facility] [address] [id number] [place] [address]- 1609 12 Jun, 2011 [facility] [place] [facility] [address], [place] [address]- 7056 12 Jun, 2011 [facility] [address]00565100[place], [place] [address]- 4708 14 May, 2011 [facility] [address]00565100[place], [place] [address]- 2066 Apr, [facility] [address]00565100[place], [place] [address]- 3116 Feb, [facility] [address]00565100[place] [address]- 3875 Dec, [facility] [address]00565100[place], [place] [address]- 0904 Aug, [facility] [address]- 5137 Aug, [facility] [address] [place] [address] 88615- 0182 Aug, [facility] [id number] [address] Aug, [facility] [id number] [address] Jul, [facility] [id number] [address] Jun, [facility] [id number] [address] Jun, IMMUNIZATIONS No Known Immunizations SOCIAL HISTORY Never Assessed REASON FOR VISIT Refill request PLAN OF CARE VITAL SIGNS MEDICATIONS Medication Instructions Dosage Frequency Start Date End Date Duration Status Alprazolam 0.5 MG Orally 2 times per day, must last 1 month 1 tablet 0 Active Gabapentin 400 mg Orally Three times a day 2 capsules 8h 0 Active [place] Carbonate 300 MG Orally 2 times a day 3 tabs in am and 2 tab in pm 12h 0 Active Atorvastatin Calcium 40 mg Orally [...] Coronary atherosclerosis of unspecified type of vessel, tanana or graft Medical History Coronary atherosclerosis of unspecified type of vessel, tanana or graft Surgical History section x4 Surgical History CABG x3 Surgical History Left arm-Plate and screws placed Hospitalization History Surgery(s)/Childbirth(s) only
--- OUTSIDE RECORDS SUMMARY | 2019-02-02 14:11 | XMS REPORT ---
Author Author DEANA KEVON [facility] Address [address] [place] [address] Care Team Providers Care Lead Supply Worker Name Role Phone ANNIALLEN SANDERSA Unavailable PROBLEMS Type Condition ICD9-CM Code SRD13-JZ Code Onset Dates Condition Status SNOMED Code Problem Coronary artery disease involving coronary bypass graft of [place] heart without angina pectoris I25.810 Active 451548139 Problem Chronic obstructive pulmonary disease with acute exacerbation J44.1 Active 622648064 Problem Mixed hyperlipidemia E78.2 Active 453988745 Problem Bipolar disorder, in partial remission, most recent episode depressed F31.75 Active 71897170 Problem Claudication I73.9 Active 364220168 Problem MESERET (generalized anxiety disorder) F41.1 Active 34088442 Problem Panic disorder F41.0 Active 472506233 Problem Coronary artery disease involving [place] coronary artery of [place] heart without angina pectoris I25.10 Active 8266445275040 Problem Mood disorder F39 Active 20897364 Problem Obesity (BMI 30-39.9) E66.9 Active 185762821 Problem Bipolar 1 disorder F31.9 Active 390764411 Problem PTSD (post-traumatic stress disorder) F43.10 Active 44330149 Problem Sleep apnea in adult G47.30 Active 52031814 Problem Essential hypertension I10 Active 18012877 Problem COPD mixed type J44.9 Active 62456351 ALLERGIES No Information ENCOUNTERS Encounter Location Date Diagnosis [facility] [address] [facility] [id number], [place] [address] Feb, [facility] [address] [id number], [place] [address] Feb, [address] [id number] [id number] Feb, [facility] [address] [facility] [id number], [place] [address] January, High risk medication use Z79.899 ; Bipolar disorder, in partial remission, most recent episode depressed F31.75 ; MESERET (generalized anxiety disorder) F41.1 ; Panic disorder F41.0 and BMI 45.0-49.9, adult Z68.42 [facility] [id number] [place] [address]74- 6[address] January, Bipolar 1 disorder, depressed F31.9 ; PTSD (post-traumatic stress disorder) F43.10 and Panic attacks F41.0 [address] [id number] [place] [address] 87505- 4178 January, Bipolar 1 disorder, depressed F31.9 ; PTSD (post-traumatic stress disorder) F43.10 and Panic attacks F41.0 [address] [id number] [place] [address] 57466- 6505 Dec, BMI 45.0-49.9, adult Z68.42 ; Bipolar disorder, in partial remission, most recent episode depressed F31.75 ; MESERET (generalized anxiety disorder) F41.1 and Panic disorder F41.0 [id number] [place] [address] 47261- 7743 Dec, Bipolar 1 disorder, depressed F31.9 ; PTSD (post-traumatic stress disorder) F43.10 and Panic attacks F41.0 [place] [address] [place] [address] 48912- 3984 Nov, Bipolar disorder, in partial remission, most recent episode depressed F31.75 ; MESERET (generalized anxiety disorder) F41.1 and Panic disorder F41.0 [place] [address] [place] [address] 05986- 0910 Nov, [place] [id number] [place] [address] 50115- 9673 Nov, [facility] [id number] [place] [address] 08092- 8127 Oct, BMI 45.0-49.9, adult Z68.42 ; Bipolar disorder, in partial remission, most recent episode depressed F31.75 ; MESERET (generalized anxiety disorder) F41.1 and Panic disorder F41.0 [place] [facility] [id number] [id number] 23 Oct, 2017 BMI 45.0-49.9, adult Z68.42 ; Coronary artery disease involving [place] coronary artery of [place] heart without angina pectoris I25.10 ; Hx of CABG Z95.1 ; Dyspnea on exertion R06.09 ; Essential hypertension I10 ; Mixed hyperlipidemia E78.2 ; Claudication I73.9 and Tobacco use Z72.0 [facility] [address] [facility] [id number] [id number] 15 Oct, 2017 BMI 45.0-49.9, adult Z68.42 ; Bipolar 1 disorder, depressed F31.9 and Abscess L02.91 [facility] [address] [place] [address] 90781- 5830 14 Oct, 2017 Bipolar 1 disorder, depressed F31.9 ; PTSD (post-traumatic stress disorder) F43.10 and Panic attacks F41.0 [facility] [address] [place] [address] 61415- 8026 Sep, BMI 40.0-44.9, adult Z68.41 ; Mood disorder F39 ; MESERET ( generalized anxiety disorder) F41.1 and Panic disorder F41.0 [facility] [address] [place] [address] 31870- 9151 Sep, BMI 40.0-44.9, adult Z68.41 [facility] [address] [place] [address] 79135- 6379 Sep, Bipolar 1 disorder, depressed F31.9 ; PTSD (post-traumatic stress disorder) F43.10 and Panic attacks F41.0 [facility] [address] [place] [address] 00598- 3098 Aug, BMI 40.0-44.9, adult Z68.41 ; Mood disorder F39 ; MESERET ( generalized anxiety disorder) F41.1 and Panic disorder F41.0 [facility] [address]00565100[place], [place] [address] Aug, Bipolar 1 disorder, depressed F31.9 ; PTSD (post-traumatic stress disorder) F43.10 and Panic attacks F41.0 [facility] [id number] [place] [address] [id number] Aug, [facility] [id number] [place] [address] [id number] Aug, COPD mixed type J44.9 [facility] [id number] [place] [address] 25438- 1938 Aug, [facility] [id number] [place] [address]39- [address] 30 Jul, 2017 PTSD (post-traumatic stress disorder) F43.10 ; Panic disorder F41.0 ; MESERET (generalized anxiety disorder) F41.1 ; Mood disorder F39 and BMI 40.0-44.9, adult Z68.41 [facility] [address] [place] [address] 51658- 1050 Jul, Bipolar 1 disorder, depressed F31.9 ; PTSD (post-traumatic stress disorder) F43.10 and Panic attacks F41.0 [facility] [address] [place] [address] [id number] Jul, Bipolar 1 disorder, depressed F31.9 [address] [place] [address] [id number] Jul, Anxiety F41.9 ; COPD mixed type J44.9 ; Essential hypertension I10 ; Bipolar 1 disorder F31.9 ; High risk medication use Z79.899 ; BMI 40.0-44.9, adult Z68.41 and Coronary artery disease involving coronary bypass graft of [place] heart without angina pectoris I25.810 [facility] [address] [place] [address] [id number] 06 Jul, 2017 Chronic obstructive pulmonary disease with acute exacerbation J44.1 and Acute nasopharyngitis J00 [facility] [address] [id number] [address] Jul, Anxiety F41.9 ; Mixed hyperlipidemia E78.2 and Bipolar 1 disorder F31.9 [facility] [address] [id number] [place] [address] Jun Bipolar 1 disorder F31.9 [facility] [address] [id number] [place] [address] Jun [facility] [id number] [place] [address] [id number] Jun, Anxiety F41.9 ; Elevated blood sugar R73.9 ; Mixed hyperlipidemia E78.2 ; COPD mixed type J44.9 ; Essential hypertension I10 ; Bipolar 1 disorder F31.9 ; Coronary artery disease involving coronary bypass graft of [place] heart without angina pectoris I25.810 ; High risk medication use Z79.899 ; Controlled substance agreement signed Z79.899 ; Elevated fasting glucose R73.01 ; Encounter for immunization Z23 and BMI 40.0-44.9, adult Z68.41 [facility] [id number] [place] [address] [id number] Jun, Elevated blood sugar R73.9 [facility] [id number] [place] [address] [id number] Jun, [facility] [id number] [place] [address] [id number] Jun, Bipolar 1 disorder F31.9 ; Obesity (BMI 30-39.9) E66.9 ; Coronary artery disease involving coronary bypass graft of [place] heart without angina pectoris I25.810 and Essential hypertension I10 [facility] [id number] [id number] Jun, Coronary artery disease involving coronary bypass graft of [place] heart without angina pectoris I25.810 ; Bipolar 1 disorder F31.9 ; Anxiety F41.9 ; Essential hypertension I10 ; COPD mixed type J44.9 and Mixed hyperlipidemia E78.2 [facility] [address] [id number] [address] May, Severe single current episode of major depressive disorder, 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.2 ; Bipolar 1 disorder F31.9 ; Anxiety F41.9 ; PTSD (post -traumatic stress disorder) F43.10 ; Coronary artery disease involving coronary bypass graft of [place] heart without angina pectoris I25.810 ; Sleep apnea in adult G47.30 ; Essential hypertension I10 ; High risk medication use Z79.899 ; Obesity (BMI 30-39.9) E66.9 ; Encounter for therapeutic drug level monitoring Z51.81 and COPD mixed type J44.9 [facility] [address] [id number] May, Severe single current episode of major depressive disorder, 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 [address] [id number]- 1248 Dec, [facility] [id number] [place] [address] [id number]- 4124 Dec, [facility] [address] 94088- 0859 May, [facility] [address] [address]- 4759 May, [place] [id number] [place] [address] [id number] Dec, [facility] [address] 8[address]78- 7144 Dec, [facility] [address] [id number] Dec, [facility] [place] [facility] [address] [id number] [place] [address]- 2546 Dec, [facility] [place] [facility] [address] [facility] [id number] [place] [address]- 2546 Dec, [facility] [place] [facility] [address] [facility] [id number] [place] [address]- 2546 Dec, [facility] [place] [facility] [address] [facility] [id number] [place] [address]- 2546 Nov, [facility] [address] [id number] [place] [id number] Nov, [facility] [address] [id number] [place] [id number] Nov, [facility] [address] [id number] [place] [id number] Nov, [facility] [place] [facility] [address] [facility] [id number] [place] [address]- 4556 Nov, [facility] [place] [facility] [address] [facility] [id number] [place] [address]- 3570 Nov, [facility] [place] [facility] [address] [facility] [id number] [place] [address]- 0546 Nov, [facility] [place] [facility] [address] [facility] [id number], [place] [address]- [address] 15 Nov, 2013 [facility] [place] [facility] [address] [facility] [id number], [place] [address]- 9536 Nov, [facility] [place] [facility] [address] [id number], [place] [address]- 4446 Nov, [facility] [address] [id number] [place] [id number] Nov, [facility] [address] [id number] [place] [id number] Oct, [facility] [place] [facility] [address] [facility] [id number] [place] [address]- 2546 Oct, [facility] [address] [id number], [place] [id number] Oct, [facility] [place] [facility] [address] [facility] [id number], [place] [address]- 9476 Oct, [facility] [place] [facility] [address] [facility] [id number], [place] [address]- 2546 Oct, [facility] [address] [facility] [id number][place] [id number] Sep, [facility] [place] [facility] [address] [facility] [id number], [place] [address]- 3836 Sep, [facility] [address] [facility] [place] [id number][place] [id number] Sep, [facility] [place] [facility] [address]00565100[place], [place] [address]- 3426 Sep, [facility] [place] [facility] [address]00565100[place], [place] [address]- 7382 Sep, [facility] [place] [facility] [address]00565100[place], [place] [address]- 1332 Sep, [facility] [place] [facility] [address]00565100[place], [place] [address]- 5394 Aug, [facility] [id number], [place] [id number] Aug, [facility] [place] [facility] [address] [id number], [place] [address]- 1076 Aug, [facility] [address] [facility] [place] [id number][place] [id number] Jul, [facility] [place] [facility] [address] [facility] [id number], [place] [address]- 9196 Jul, [facility] [address] [facility] [place] [id number], [place] [id number] Jul, [facility] [place] [facility] [address] [id number], [place] [address]- 1216 Jul, [facility] [place] [facility] [address] [id number], [place] [address]- 8646 May, [facility] [address] [facility] [id number], [place] [address]- 7622 Apr, [facility] [place] [facility] [address] [facility] [id number], [place] [address]- 3840 Apr, [facility] [address] [facility] [id number], [place] [address]- 8705 Mar, [facility] [address] [id number], [place] [id number] Feb, [facility] [address] [id number] [place] [id number] Feb, [facility] [address] [id number] [place] [id number] Feb, [facility] [address]00565100[place], [place] [address]- 6076 Feb, [facility] [address]00565100[place], [place] [address]- 2951 January, [facility] [address] [id number], [place] [address]- 0688 January, [facility] [address] [id number] [place] [id number] Dec, [facility] [address] [id number], [place] 345[address] Dec, [facility] [address] [id number] [place] [id number] Dec, [facility] [address] [id number] [place] [id number] Dec, [facility] [address] [id number] [place] [id number] Dec, [facility] [address] [id number] [place] [id number] Dec, [facility] [place] [facility] [address] [id number], [place] [address]- 5080 Dec, [facility] [place] [facility] [address]100[place], [place] [address]- 2546 Dec, [facility] [address] [id number] [place] [id number] Nov, [facility] [address] [id number] [place] [id number] Nov, [facility] [address] [id number] [place] [id number] Nov, [facility] [place] [facility] [address] [facility] [id number] [place] [address]- 2546 Oct, [facility] [address] [id number] [place] [address]- 2546 Oct, [facility] [place] [facility] [address] [facility] [id number] [place] [address]- 2546 Sep, [facility] [id number] [place] [address]- 0566 Aug, [facility] [address] [id number], [place] [address]- 4416 Aug, [facility] [place] [facility] [address] [facility] [id number] [place] [address]- 3666 Aug, [facility] [address] [id number], [place] [address]- 6036 Aug, [facility] [address] [facility] [place] [id number] [place] [id number] Aug, [facility] [place] [facility] [address] [facility] [id number], [place] [address]- 2546 Aug, [facility] [place] [facility] [address] [facility] [id number], [place] [address]- 2546 Jul, [facility] [place] [facility] [address] [facility] [id number] [place] [address]- 2546 Jul, [facility] [place] [facility] [address] [facility] [id number], [place] [address]- 2546 Jul, [facility] [place] [facility] [id number], [place] [address]- 2546 Jul, [facility] [address] [id number] [place] [id number] Jun, [facility] [address] [id number] [place] [id number] Jun, [facility] [place] [facility] [address] [facility] [id number], [place] [address]- 2546 Jun, [facility] [address] [facility] [place] [id number] [place] [id number] Apr, [facility] [place] [facility] [address] [facility] [id number], [place] [address]- 2546 Apr, [facility] [place] [facility] [address] [facility] [id number] [place] [address]- 2546 Mar, [facility] [address] [facility] [place] [id number] [place] [id number] Feb, [facility] [address] [facility] [place] [id number], [place] 877392165 Feb, [facility] [place] [facility] [address]005[address]100[place], [place] [address]- 1496 Feb, [facility] [address] [facility] [place] [id number][place] [id number] Feb, [facility] [place] [facility] [address]00565100[place], [place] [address]- 4486 Feb, [facility] [place] [facility] [address]00565100[place], [place] [address]- 0886 Feb, [facility] [place] [facility] [address] [facility] [id number], [place] [address]- 2546 Feb, [facility] [place] [facility] [address] [facility] [id number], [place] [address]- 2546 Feb, [facility] [address] [facility] [place] [id number][place] [id number] January, [facility] [address] [facility] [place] [id number], [place] 338182421 Dec, [facility] [place] [facility] [address]00565100[place], [place] [address]- 2836 Dec, [facility] [address] [facility] [id number], [place] [address]- 4187 Dec, [facility] [address] [id number] [place] [id number] Dec, [facility] [address] [facility] [id number], [place] [address]- 7420 Dec, [facility] [address] [id number] [place] [id number] Dec, [facility] [address] [id number] [place] [id number] Nov, [facility] [address] [id number] [place] [id number] Nov, [facility] [address] [id number] [place] [id number] Nov, [facility] [address] [id number] [place] [id number] Nov, [facility] [address]005[address]100[place], [place] [address]- 7686 Oct, [facility] [address] [id number] [place] [id number] Oct, [facility] [address] [id number] [place] [id number] Oct, [facility] [address] [id number], [place] [id number] Oct, [facility] [address] [id number], [place] 449714914 Oct, [facility] [address] [id number], [place] 440287854 Sep, [facility] [address] [id number], [place] 194554564 Sep, [facility] [address] [facility] [id number], [place] [address]- 1486 Sep, [facility] [address]100[place], [place] 25402394- 5763 Sep, [facility] [place] [facility] [address] [id number] [place] [address]- 2788 Sep, [facility] [address] [id number] [place] [address]- 7328 Sep, [facility] [address] [id number] [place] [address]- 2416 Aug, [facility] [place] [facility] [address] [id number] [place] [address], [place] [address]- 4329 Aug, [facility] [address] [id number] [place] [address]- 8382 Aug, [facility] [address] [id number] [place] [address]- 2217 Aug, [facility] [address] [id number] [place] [address]- 6112 Aug, [facility] [address] [id number] [place] [address]- 1149 Aug, [facility] [address] [id number] [place] [address] Aug, [facility] [address] [id number] [place] [address] Aug, [facility] [place] [facility] [address] [id number] [place] [address] Jun, [facility] [place] [facility] [address] [id number] [place] [address] Jun, [facility] [place] [facility] [address] [id number] [place] [address] Jun, [facility] [place] [facility] [address] [id number] [place] [address] 19 Jun, 2011 [facility] [place] [facility] [address] [id number] [place] [address] 14 Jun, 2011 [facility] [place] [facility] [address] [id number] [place] [address] 13 Jun, 2011 [facility] [id number] [address] Jun, [facility] [address] [facility] [id number], [place] [address] Jun, [facility] [id number] [place] [address] Jun, [facility] [address] [facility] [id number], [place] [address] 14 May, 2011 [facility] [address] [facility] [id number], [place] [address] Apr, [facility] [address] [place] [id number] [place] [address] 16 Feb, 2011 [facility] [id number], [place] [address] Dec, [facility] [id number] [address] Aug, [facility] [id number] [address] Aug, [facility] [id number], [place] [address] Aug, [facility] [id number] [address] Aug, [facility] [id number] [address] Jul, [facility] [id number], [place] [address] Jun, [facility] [id number], [place] [address] Jun, IMMUNIZATIONS No Known Immunizations SOCIAL HISTORY Never Assessed REASON FOR VISIT refill request PLAN OF CARE VITAL SIGNS MEDICATIONS Medication Instructions Dosage Frequency Start Date End Date Duration Status Latuda 40 mg Orally every dinner time 1 tablet Jul, 30 day(s ) Active RESULTS No Results PROCEDURES No Known [...] Coronary atherosclerosis of unspecified type of vessel, [place] or graft Medical History Coronary atherosclerosis of unspecified type of vessel, [place] or graft Surgical History section x4 Surgical History CABG x3 Surgical History Left arm-Plate and screws placed Hospitalization History Surgery(s)/Childbirth(s) only
--- OUTSIDE RECORDS SUMMARY | 2019-02-02 14:12 | XMS REPORT | Continuity of Care Document ---
Author Organization Unknown Address Unknown Allergies Active Description Code Type Severity Reaction Onset Reported/Identified Relationship to Patient Clinical Status Yes Abilify Drug Allergy N/A N/A 06/26/2010 Yes Abilify Drug Allergy 06/26/2010 Yes Lyrica Drug Allergy 06/24/2011 Yes Pristiq Drug Allergy N/A N/A 07/16/2011 Yes Pristiq Drug Allergy 07/16/2011 Yes Augmentin 875-125 mg tablet Drug Allergy N/A N/A 08/16/2013 Medications There is no data. 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 06/26/2010 [facility], KENDRICK R 414.9 MYOCARDIAL ISCHEMIA CHRONIC 06/26/2010 [facility], KENDRICK R 496 CHRONIC OBSTRUCTIVE PULMONARY DISEASE 06/26/2010 DALLIN ZIMMERMAN DO F 272.4 HYPERLIPIDEMIA 06/26/2010 ERASMO GUZMAN DALLIN F 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 06/26/2010 ERASMO GUZMAN DALLIN F 414.9 MYOCARDIAL ISCHEMIA CHRONIC 06/26/2010 ERASMO GUZMAN DALLIN F 496 CHRONIC OBSTRUCTIVE PULMONARY DISEASE 06/26/2010 BAQIR THELMA 272.4 HYPERLIPIDEMIA 06/26/2010 BAQIR, THELMA 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 06/26/2010 BAQIR THELMA 414.9 MYOCARDIAL ISCHEMIA CHRONIC 06/26/2010 BALINDAR THELMA 496 CHRONIC OBSTRUCTIVE PULMONARY DISEASE 06/26/2010 MYLES SETHI MD 272.4 HYPERLIPIDEMIA 06/26/2010 MYLES SETHI MD 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 06/26/2010 MYLES SETHI MD 414.9 MYOCARDIAL ISCHEMIA CHRONIC 06/26/2010 MYLES SETHI MD 496 CHRONIC OBSTRUCTIVE PULMONARY DISEASE 06/26/2010 272.4 HYPERLIPIDEMIA 06/26/2010 401.9 ESSENTIAL HYPERTENSION 06/26/2010 414.9 MYOCARDIAL ISCHEMIA CHRONIC 06/26/2010 496 CHRONIC OBSTRUCTIVE PULMONARY DISEASE 06/26/2010 272.4 HYPERLIPIDEMIA 06/26/2010 401.9 ESSENTIAL HYPERTENSION 06/26/2010 414.9 MYOCARDIAL ISCHEMIA CHRONIC 06/26/2010 496 CHRONIC OBSTRUCTIVE PULMONARY DISEASE 06/26/2010 WERDER DO, DALLIN F 272.4 HYPERLIPIDEMIA 06/26/2010 WERDER DO, DALLIN F 401.9 ESSENTIAL HYPERTENSION 06/26/2010 WERDER DO, DALLIN F 414.9 MYOCARDIAL ISCHEMIA CHRONIC 06/26/2010 WERDER DO, DALLIN F 496 CHRONIC OBSTRUCTIVE PULMONARY DISEASE 06/26/2010 BARRETT DO, JAH K 272.4 HYPERLIPIDEMIA 06/26/2010 BARRETT DO, JAH K 401.9 ESSENTIAL HYPERTENSION 06/26/2010 BARRETT DO, JAH K 414.9 MYOCARDIAL ISCHEMIA CHRONIC 06/26/2010 BARRETT DO, JAH K 496 CHRONIC OBSTRUCTIVE PULMONARY DISEASE 06/26/2010 BARRETT DO, JAH K 272.4 HYPERLIPIDEMIA 06/26/2010 BARRETT DO, JAH K 401.9 ESSENTIAL HYPERTENSION 06/26/2010 BARRETT DO, JAH K 414.9 MYOCARDIAL ISCHEMIA CHRONIC 06/26/2010 BARRETT DO, JAH K 496 CHRONIC OBSTRUCTIVE PULMONARY DISEASE 06/26/2010 WHITE DDS, CAL D 272.4 HYPERLIPIDEMIA 06/26/2010 WHITE DDS, CAL D 401.9 ESSENTIAL HYPERTENSION 06/26/2010 WHITE DDS, CAL D 414.9 MYOCARDIAL ISCHEMIA CHRONIC 06/26/2010 WHITE DDS, CAL D 496 CHRONIC OBSTRUCTIVE PULMONARY DISEASE 06/26/2010 BARRETT DO, JAH K 272.4 HYPERLIPIDEMIA 06/26/2010 BARRETT DO, JAH K 401.9 ESSENTIAL HYPERTENSION 06/26/2010 BARRETT DO, JAH K 414.9 MYOCARDIAL ISCHEMIA CHRONIC 06/26/2010 BARRETT DO, JAH K 496 CHRONIC OBSTRUCTIVE PULMONARY DISEASE 06/26/2010 BARRETT DO, JAH K 272.4 HYPERLIPIDEMIA 06/26/2010 BARRETT DO, JAH K 401.9 ESSENTIAL HYPERTENSION 06/26/2010 BARRETT DO, JAH K 414.9 MYOCARDIAL ISCHEMIA CHRONIC 06/26/2010 BARRETT DO, JAH K 496 CHRONIC OBSTRUCTIVE PULMONARY DISEASE 06/26/2010 BARRETT DO, JAH K 272.4 HYPERLIPIDEMIA 06/26/2010 BARRETT DO, JAH K 401.9 ESSENTIAL HYPERTENSION 06/26/2010 BARRETT DO, JAH K 414.9 MYOCARDIAL ISCHEMIA CHRONIC 06/26/2010 BARRETT DO, JAH K 496 CHRONIC OBSTRUCTIVE PULMONARY DISEASE 06/26/2010 272.4 HYPERLIPIDEMIA 06/26/2010 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 06/26/2010 414.9 MYOCARDIAL ISCHEMIA CHRONIC 06/26/2010 496 CHRONIC OBSTRUCTIVE PULMONARY DISEASE 07/16/2010 DALLIN ZIMMERMAN DO F 268.9 VITAMIN D DEFICIENCY 07/16/2010 KRISTA ZIMMERMAN DOEN F 338.29 OTHER CHRONIC PAIN 07/16/2010 [facility], KENDRICK R 268.9 VITAMIN D DEFICIENCY 07/16/2010 [facility], KENDRICK R 338.29 OTHER CHRONIC PAIN 07/16/2010 DALLIN ZIMMERMAN DO F 268.9 VITAMIN D DEFICIENCY 07/16/2010 KRISTA ZIMMERMAN DOEN F 338.29 OTHER CHRONIC PAIN 07/16/2010 BAQIR, THELMA 268.9 VITAMIN D DEFICIENCY 07/16/2010 BAQIR, THELMA 338.29 OTHER CHRONIC PAIN 07/16/2010 MYLES SETHI MD 268.9 VITAMIN D DEFICIENCY 07/16/2010 MYLES SETHI MD 338.29 OTHER CHRONIC PAIN 07/16/2010 268.9 VITAMIN D DEFICIENCY 07/16/2010 338.29 OTHER CHRONIC PAIN 07/16/2010 268.9 VITAMIN D DEFICIENCY 07/16/2010 338.29 OTHER CHRONIC PAIN 07/16/2010 KRISTA ZIMMERMAN DOEN F 268.9 VITAMIN D DEFICIENCY 07/16/2010 CANDIDODER DO DALLIN F 338.29 OTHER CHRONIC PAIN 07/16/2010 BARRETT DO, JAH K 268.9 VITAMIN D DEFICIENCY 07/16/2010 BARRETT DO, JAH K 338.29 OTHER CHRONIC PAIN 07/16/2010 BARRETT DO, JAH K 268.9 VITAMIN D DEFICIENCY 07/16/2010 BARRETT DO, JAH K 338.29 OTHER CHRONIC PAIN 07/16/2010 WHITE DDS, CAL D 268.9 VITAMIN D DEFICIENCY 07/16/2010 WHITE DDS, CAL D 338.29 OTHER CHRONIC PAIN 07/16/2010 BARRETT DO, JAH K 268.9 VITAMIN D DEFICIENCY 07/16/2010 BARRETT DO, JAH K 338.29 OTHER CHRONIC PAIN 07/16/2010 BARRETT DO, JAH K 268.9 VITAMIN D DEFICIENCY 07/16/2010 BARRETT DO, JAH K 338.29 OTHER CHRONIC PAIN 07/16/2010 BARRETT DO, JAH K 268.9 VITAMIN D DEFICIENCY 07/16/2010 BARRETT DO, JAH K 338.29 OTHER CHRONIC PAIN 07/16/2010 268.9 VITAMIN D DEFICIENCY 07/16/2010 338.29 OTHER CHRONIC PAIN 09/03/2010 DALLIN ZIMMERMAN DO F 300.23 AN SOCIAL PHOBIA 09/03/2010 DALLIN ZIMMERMAN DO F 305.20 SA CANNABIS ABUSE 09/03/2010 DALLIN ZIMMERMAN DO F 307.47 SI DYSSOMNIA NOS 09/03/2010 DALLIN ZIMMERMAN DO F V58.69 LONG-TERM (CURRENT) USE OF OTHER MEDICATIONS 09/03/2010 [facility], KENDRICK R 300.23 AN SOCIAL PHOBIA 09/03/2010 [facility], KENDRICK R 305.20 SA CANNABIS ABUSE 09/03/2010 [facility], KENDRICK R 307.47 SI DYSSOMNIA NOS 09/03/2010 [facility], KENDRICK R V58.69 LONG-TERM (CURRENT) USE OF OTHER MEDICATIONS 09/03/2010 DALLIN ZIMMERMAN DO F 300.23 AN SOCIAL PHOBIA 09/03/2010 DALLIN ZIMMERMAN DO F 305.20 SA CANNABIS ABUSE 09/03/2010 DALLIN ZIMMERMAN DO F 307.47 SI DYSSOMNIA NOS 09/03/2010 DALLIN ZIMMERMAN DO F V58.69 LONG-TERM (CURRENT) USE OF OTHER MEDICATIONS 09/03/2010 BAQIR, THELMA 300.23 AN SOCIAL PHOBIA 09/03/2010 BAQIR, THELMA 305.20 SA CANNABIS ABUSE 09/03/2010 BAQIR, THELMA 307.47 SI DYSSOMNIA NOS 09/03/2010 BAQIR, THELMA V58.69 LONG-TERM (CURRENT) USE OF OTHER MEDICATIONS 09/03/2010 MYLES SETHI MD 300.23 AN SOCIAL PHOBIA 09/03/2010 MYLES SETHI MD 305.20 SA CANNABIS ABUSE 09/03/2010 SETHI MD, MYLES 307.47 SI DYSSOMNIA NOS 09/03/2010 NAVDEEP KOHLI, MYLES V58.69 LONG-TERM (CURRENT) USE OF OTHER MEDICATIONS 09/03/2010 300.23 AN SOCIAL PHOBIA 09/03/2010 305.20 SA CANNABIS ABUSE 09/03/2010 307.47 SI DYSSOMNIA NOS 09/03/2010 V58.69 LONG-TERM ( CURRENT) USE OF OTHER MEDICATIONS 09/03/2010 300.23 AN SOCIAL PHOBIA 09/03/2010 305.20 SA CANNABIS ABUSE 09/03/2010 307.47 SI DYSSOMNIA NOS 09/03/2010 V58.69 LONG-TERM ( CURRENT) USE OF OTHER MEDICATIONS 09/03/2010 WERDER DO, DALLIN F 300.23 AN SOCIAL PHOBIA 09/03/2010 WERDER DO, DALLIN F 305.20 SA CANNABIS ABUSE 09/03/2010 WERDER DO, DALLIN F 307.47 SI DYSSOMNIA NOS 09/03/2010 WERDER DO, DALLIN F V58.69 LONG-TERM (CURRENT) USE OF OTHER MEDICATIONS 09/03/2010 BARRETT DO, JAH K 300.23 AN SOCIAL PHOBIA 09/03/2010 BARRETT DO, JAH K 305.20 SA CANNABIS ABUSE 09/03/2010 BARRETT DO, JAH K 307.47 SI DYSSOMNIA NOS 09/03/2010 BARRETT DO, JAH K V58.69 LONG-TERM (CURRENT) USE OF OTHER MEDICATIONS 09/03/2010 BARRETT DO, JAH K 300.23 AN SOCIAL PHOBIA 09/03/2010 BARRETT DO, JAH K 305.20 SA CANNABIS ABUSE 09/03/2010 BARRETT DO, JAH K 307.47 SI DYSSOMNIA NOS 09/03/2010 BARRETT DO, JAH K V58.69 LONG-TERM (CURRENT) USE OF OTHER MEDICATIONS 09/03/2010 WHITE DDS, CAL D 300.23 AN SOCIAL PHOBIA 09/03/2010 WHITE DDS, CAL D 305.20 SA CANNABIS ABUSE 09/03/2010 WHITE DDS, CAL D 307.47 SI DYSSOMNIA NOS 09/03/2010 WHITE DDS, CAL D V58.69 LONG-TERM (CURRENT) USE OF OTHER MEDICATIONS 09/03/2010 BARRETT DO, JAH K 300.23 AN SOCIAL PHOBIA 09/03/2010 BARRETT DO, JAH K 305.20 SA CANNABIS ABUSE 09/03/2010 BARRETT DO, JAH K 307.47 SI DYSSOMNIA NOS 09/03/2010 BARRETT DO, JAH K V58.69 LONG-TERM (CURRENT) USE OF OTHER MEDICATIONS 09/03/2010 BARRETT DO, JAH K 300.23 AN SOCIAL PHOBIA 09/03/2010 BARRETT DO, JAH K 305.20 SA CANNABIS ABUSE 09/03/2010 BARRETT DO, JAH K 307.47 SI DYSSOMNIA NOS 09/03/2010 BARRETT DO, JAH K V58.69 LONG-TERM (CURRENT) USE OF OTHER MEDICATIONS 09/03/2010 BARRETT DO, JAH K 300.23 AN SOCIAL PHOBIA 09/03/2010 BARRETT DO, JAH K 305.20 SA CANNABIS ABUSE 09/03/2010 BARRETT DO, JAH K 307.47 SI DYSSOMNIA NOS 09/03/2010 BARRETT DO, JAH K V58.69 LONG-TERM (CURRENT) USE OF OTHER MEDICATIONS 09/03/2010 300.23 AN SOCIAL PHOBIA 09/03/2010 305.20 SA CANNABIS ABUSE 09/03/2010 307.47 SI DYSSOMNIA NOS 09/03/2010 V58.69 LONG-TERM ( CURRENT) USE OF OTHER MEDICATIONS 09/22/2010 DALLIN ZIMMERMAN DO 300.01 AN PANIC DIS W/O AGORA 09/22/2010 DALLIN ZIMMERMAN DO 300.02 AN GEN ANXIETY 09/22/2010 DALLIN ZIMMERMAN DO 311 MO DEPRESS NOS 09/22/2010 [facility], KENDRICK R 300.01 AN PANIC DIS W/O AGORA 09/22/2010 [facility], KENDRICK R 300.02 AN GEN ANXIETY 09/22/2010 [facility], KENDRICK R 311 MO DEPRESS NOS 09/22/2010 DALLIN ZIMMERMAN DO 300.01 AN PANIC DIS W/O AGORA 09/22/2010 DALLIN ZIMMERMAN DO 300.02 AN GEN ANXIETY 09/22/2010 DALLIN ZIMMERMAN DO 311 MO DEPRESS NOS 09/22/2010 THELMA RAMOS 300.01 AN PANIC DIS W/O AGORA 09/22/2010 THELMA RAMOS 300.02 AN GEN ANXIETY 09/22/2010 THELMA RAMOS 311 MO DEPRESS NOS 09/22/2010 MYLES SETHI MD 300.01 AN PANIC DIS W/O AGORA 09/22/2010 MYLES SETHI MD 300.02 AN GEN ANXIETY 09/22/2010 MYLES SETHI MD 311 MO DEPRESS NOS 09/22/2010 300.01 AN PANIC DIS W/O AGORA 09/22/2010 300.02 AN GEN ANXIETY 09/22/2010 311 MO DEPRESS NOS 09/22/2010 300.01 AN PANIC DIS W/O AGORA 09/22/2010 300.02 AN GEN ANXIETY 09/22/2010 311 MO DEPRESS NOS 09/22/2010 WERDER DO, DALLIN F 300.01 AN PANIC DIS W/O AGORA 09/22/2010 WERDER DO, DALLIN F 300.02 AN GEN ANXIETY 09/22/2010 WERDER DO, DALLIN F 311 MO DEPRESS NOS 09/22/2010 BARRETT DO, JAH K 300.01 AN PANIC DIS W/O AGORA 09/22/2010 BARRETT DO, JAH K 300.02 AN GEN ANXIETY 09/22/2010 BARRETT DO, JAH K 311 MO DEPRESS NOS 09/22/2010 BARRETT DO, JAH K 300.01 AN PANIC DIS W/O AGORA 09/22/2010 BARRETT DO, JAH K 300.02 AN GEN ANXIETY 09/22/2010 BARRETT DO, JAH K 311 MO DEPRESS NOS 09/22/2010 WHITE DDS, CAL D 300.01 AN PANIC DIS W/O AGORA 09/22/2010 WHITE DDS, CAL D 300.02 AN GEN ANXIETY 09/22/2010 WHITE DDS, CAL D 311 MO DEPRESS NOS 09/22/2010 BARRETT DO, JAH K 300.01 AN PANIC DIS W/O AGORA 09/22/2010 BARRETT DO, JAH K 300.02 AN GEN ANXIETY 09/22/2010 BARRETT DO, JAH K 311 MO DEPRESS NOS 09/22/2010 BARRETT DO, JAH K 300.01 AN PANIC DIS W/O AGORA 09/22/2010 BARRETT DO, JAH K 300.02 AN GEN ANXIETY 09/22/2010 BARRETT DO, JAH K 311 MO DEPRESS NOS 09/22/2010 BARRETT DO, JAH K 300.01 AN PANIC DIS W/O AGORA 09/22/2010 BARRETT DO, JAH K 300.02 AN GEN ANXIETY 09/22/2010 BARRETT DO, JAH K 311 MO DEPRESS NOS 09/22/2010 300.01 AN PANIC DIS W/O AGORA 09/22/2010 300.02 AN GEN ANXIETY 09/22/2010 311 MO DEPRESS NOS 10/15/2010 DALLIN ZIMMERMAN DO F 296.90 MO MOOD DIS NOS 10/15/2010 DALLIN ZIMMERMAN DO F 300.00 AN ANXIETY UNSPEC 10/15/2010 [facility], KENDRICK R 296.90 MO MOOD DIS NOS 10/15/2010 [facility], KENDRICK R 300.00 AN ANXIETY UNSPEC 10/15/2010 DALLIN ZIMMERMAN DO F 296.90 MO MOOD DIS NOS 10/15/2010 DALLIN ZIMMERMAN DO F 300.00 AN ANXIETY UNSPEC 10/15/2010 THELMA RAMOS 296.90 MO MOOD DIS NOS 10/15/2010 THELMA RAMOS 300.00 AN ANXIETY UNSPEC 10/15/2010 MYLES SETHI MD 296.90 MO MOOD DIS NOS 10/15/2010 MYLES SETHI MD 300.00 AN ANXIETY UNSPEC 10/15/2010 296.90 MO MOOD DIS NOS 10/15/2010 300.00 AN ANXIETY UNSPEC 10/15/2010 296.90 MO MOOD DIS NOS 10/15/2010 300.00 AN ANXIETY UNSPEC 10/15/2010 DALLIN ZIMMERMAN DO F 296.90 MO MOOD DIS NOS 10/15/2010 DALLIN ZIMMERMAN DO F 300.00 AN ANXIETY UNSPEC 10/15/2010 BARRETT DO, JAH K 296.90 MO MOOD DIS NOS 10/15/2010 BARRETT DO, JAH K 300.00 AN ANXIETY UNSPEC 10/15/2010 BARRETT DO, JAH K 296.90 MO MOOD DIS NOS 10/15/2010 BARRETT DO, JAH K 300.00 AN ANXIETY UNSPEC 10/15/2010 WHITE DDS, CAL D 296.90 MO MOOD DIS NOS 10/15/2010 WHITE DDS, CAL D 300.00 AN ANXIETY UNSPEC 10/15/2010 BARRETT DO, JAH K 296.90 MO MOOD DIS NOS 10/15/2010 BARRETT DO, JAH K 300.00 AN ANXIETY UNSPEC 10/15/2010 BARRETT DO, JAH K 296.90 MO MOOD DIS NOS 10/15/2010 BARRETT DO, JAH K 300.00 AN ANXIETY UNSPEC 10/15/2010 BARRETT DO, JAH K 296.90 MO MOOD DIS NOS 10/15/2010 BARRETT DO, JAH K 300.00 AN ANXIETY UNSPEC 10/15/2010 296.90 MO MOOD DIS NOS 10/15/2010 300.00 AN ANXIETY UNSPEC 11/11/2010 DALLIN ZIMMERMAN DO F 305.1 current smoker 11/11/2010 [facility], KENDRICK R 305.1 current smoker 11/11/2010 DALLIN ZIMMERMAN DO F 305.1 current smoker 11/11/2010 THELMA RAMOS 305.1 current smoker 11/11/2010 MYLES SETHI MD 305.1 current smoker 11/11/2010 305.1 current smoker 11/11/2010 305.1 current smoker 11/11/2010 DALLIN ZIMMERMAN DO F 305.1 current smoker 11/11/2010 BARRETT DO, JAH K 305.1 current smoker 11/11/2010 BARRETT DO, JAH K 305.1 current smoker 11/11/2010 CAL BROWN DDS 305.1 current smoker 11/11/2010 BARRETT DO, JAH K 305.1 current smoker 11/11/2010 BARRETT DO, JAH K 305.1 current smoker 11/11/2010 BARRETT DO, JAH K 305.1 current smoker 11/11/2010 305.1 current smoker 11/25/2010 DALLIN ZIMMERMAN DO F 401.1 ESSENTIAL HYPERTENSION BENIGN 11/25/2010 [facility], KENDRICK R 401.1 ESSENTIAL HYPERTENSION BENIGN 11/25/2010 DALLIN ZIMMERMAN DO F 401.1 ESSENTIAL HYPERTENSION BENIGN 11/25/2010 THELMA RAMOS 401.1 ESSENTIAL HYPERTENSION BENIGN 11/25/2010 MYLES SETHI MD 401.1 ESSENTIAL HYPERTENSION BENIGN 11/25/2010 401.1 ESSENTIAL HYPERTENSION BENIGN 11/25/2010 401.1 ESSENTIAL HYPERTENSION BENIGN 11/25/2010 DALLIN ZIMMERMAN DO F 401.1 ESSENTIAL HYPERTENSION BENIGN 11/25/2010 BARRETT DO, JAH K 401.1 ESSENTIAL HYPERTENSION BENIGN 11/25/2010 BARRETT DO, JAH K 401.1 ESSENTIAL HYPERTENSION BENIGN 11/25/2010 CAL BROWN DDS 401.1 ESSENTIAL HYPERTENSION BENIGN 11/25/2010 BARRETT DO, JAH K 401.1 ESSENTIAL HYPERTENSION BENIGN 11/25/2010 BARRETT DO, JAH K 401.1 ESSENTIAL HYPERTENSION BENIGN 11/25/2010 BARRETT DO, JAH K 401.1 ESSENTIAL HYPERTENSION BENIGN 11/25/2010 401.1 ESSENTIAL HYPERTENSION BENIGN 01/07/2011 DALLIN ZIMMERMAN DO F 726.33 BURSITIS OLECRANON RIGHT 01/07/2011 ERASMO DO, DALLIN F 787.1 heartburn 01/07/2011 [facility], KENDRICK R 726.33 BURSITIS OLECRANON RIGHT 01/07/2011 [facility], KENDRICK R 787.1 heartburn 01/07/2011 WERDALLIN SHELTON DO F 726.33 BURSITIS OLECRANON RIGHT 01/07/2011 DALLIN ZIMMERMAN DO F 787.1 heartburn 01/07/2011 BAQIR, THELMA 726.33 BURSITIS OLECRANON RIGHT 01/07/2011 BAQIR, THELMA 787.1 heartburn 01/07/2011 NAVDEEP KOHLI, MYLES 726.33 BURSITIS OLECRANON RIGHT 01/07/2011 NAVDEEP KOHLI, MYLES 787.1 heartburn 01/07/2011 726.33 BURSITIS OLECRANON RIGHT 01/07/2011 787.1 heartburn 01/07/2011 726.33 BURSITIS OLECRANON RIGHT 01/07/2011 787.1 heartburn 01/07/2011 ERASMO DO, DALLIN F 726.33 BURSITIS OLECRANON RIGHT 01/07/2011 ERASMO GUZMAN, DALLIN F 787.1 heartburn 01/07/2011 BARRETT DO, JAH K 726.33 BURSITIS OLECRANON RIGHT 01/07/2011 BARRETT DO, JAH K 787.1 heartburn 01/07/2011 BARRETT DO, AJH K 726.33 BURSITIS OLECRANON RIGHT 01/07/2011 BARRETT DO, JAH K 787.1 heartburn 01/07/2011 WHITE DDS, CAL D 726.33 BURSITIS OLECRANON RIGHT 01/07/2011 WHITE DDS, CAL D 787.1 heartburn 01/07/2011 BARRETT DO, JAH K 726.33 BURSITIS OLECRANON RIGHT 01/07/2011 BARRETT DO, JAH K 787.1 heartburn 01/07/2011 BARRETT DO, JAH K 726.33 BURSITIS OLECRANON RIGHT 01/07/2011 BARRETT DO, JAH K 787.1 heartburn 01/07/2011 BARRETT DO, JAH K 726.33 BURSITIS OLECRANON RIGHT 01/07/2011 BARRETT DO, JAH K 787.1 heartburn 01/07/2011 726.33 BURSITIS OLECRANON RIGHT 01/07/2011 787.1 heartburn 02/06/2011 DALLIN ZIMMERMAN DO F 726.32 LATERAL EPICONDYLITIS (TENNIS ELBOW) RIGHT 02/06/2011 [facility], KENRDICK R 726.32 LATERAL EPICONDYLITIS (TENNIS ELBOW) RIGHT 02/06/2011 DALLIN ZIMMERMAN DO 726.32 LATERAL EPICONDYLITIS (TENNIS ELBOW) RIGHT 02/06/2011 THELMA RAMOS 726.32 LATERAL EPICONDYLITIS (TENNIS ELBOW) RIGHT 02/06/2011 MYLES SETHI MD 726.32 LATERAL EPICONDYLITIS (TENNIS ELBOW) RIGHT 02/06/2011 726.32 LATERAL EPICONDYLITIS (TENNIS ELBOW) RIGHT 02/06/2011 726.32 LATERAL EPICONDYLITIS (TENNIS ELBOW) RIGHT 02/06/2011 DALLIN ZIMMERMAN DO 726.32 LATERAL EPICONDYLITIS (TENNIS ELBOW) RIGHT 02/06/2011 BARRETT DO, JAH K 726.32 LATERAL EPICONDYLITIS (TENNIS ELBOW) RIGHT 02/06/2011 BARRETT DO, JAH K 726.32 LATERAL EPICONDYLITIS (TENNIS ELBOW) RIGHT 02/06/2011 CAL BROWN DDS 726.32 LATERAL EPICONDYLITIS (TENNIS ELBOW) RIGHT 02/06/2011 BARRETT DO, JAH K 726.32 LATERAL EPICONDYLITIS (TENNIS ELBOW) RIGHT 02/06/2011 BARRETT DO JAH K 726.32 LATERAL EPICONDYLITIS (TENNIS ELBOW) RIGHT 02/06/2011 BARRETT DO JAH K 726.32 LATERAL EPICONDYLITIS (TENNIS ELBOW) RIGHT 02/06/2011 726.32 LATERAL EPICONDYLITIS (TENNIS ELBOW) RIGHT 06/16/2011 DALLIN ZIMMERMAN DO 786.2 cough 06/16/2011 DALLIN ZIMMERMAN DO V04.81 Vaccines Prophylactic Need Against Influ[facility] Vaccines Prophylactic Need Against Influenza 06/16/2011 DALLIN ZIMMERMAN DO 786.2 cough 06/16/2011 WERDER DO, DALLIN F V04.81 Vaccines Prophylactic Need Against Influenza 06/16/2011 BATHELMA GERONIMO 786.2 cough 06/16/2011 BALINDARTHELMA V04.81 Vaccines Prophylactic Need Against Influenza 06/16/2011 MYLES SETHI MD 786.2 cough 06/16/2011 MYLES SETHI MD V04.81 Vaccines Prophylactic Need Against Influenza 06/16/2011 786.2 cough 06/16/2011 V04.81 Vaccines Prophylactic Need Against Influenza 06/16/2011 786.2 cough 06/16/2011 V04.81 Vaccines Prophylactic Need Against Influenza 06/16/2011 DALLIN ZIMMERMAN DO F 786.2 cough 06/16/2011 DALLIN ZIMMERMAN DO F V04.81 Vaccines Prophylactic Need Against Influenza 06/16/2011 BARRETT DO, JAH K 786.2 cough 06/16/2011 BARRETT DO, JAH K V04.81 Vaccines Prophylactic Need Against Influenza 06/16/2011 BARRETT DO, JAH K 786.2 cough 06/16/2011 BARRETT DO, JAH K V04.81 Vaccines Prophylactic Need Against Influenza 06/16/2011 WHITE DDS, CAL D 786.2 cough 06/16/2011 WHITE DDS, CAL D V04.81 Vaccines Prophylactic Need Against Influenza 06/16/2011 BARRETT DO, JAH K 786.2 cough 06/16/2011 BARRETT DO, JAH K V04.81 Vaccines Prophylactic Need Against Influenza 06/16/2011 BARRETT DO, JAH K 786.2 cough 06/16/2011 BARRETT DO, JAH K V04.81 Vaccines Prophylactic Need Against Influenza 06/16/2011 BARRETT DO, JAH K 786.2 cough 06/16/2011 BARRETT DO, JAH K V04.81 Vaccines Prophylactic Need Against Influenza 06/16/2011 786.2 cough 06/16/2011 V04.81 Vaccines Prophylactic Need Against Influenza 09/16/2011 DALLIN ZIMMERMAN DO 525.9 tooth pain 09/16/2011 KENDRICK FAJARDO 525.9 tooth pain 09/16/2011 DALLIN ZIMMERMAN DO F 525.9 tooth pain 09/16/2011 THELMA RAMOS 525.9 tooth pain 09/16/2011 MYLES SETHI MD 525.9 tooth pain 09/16/2011 525.9 tooth pain 09/16/2011 525.9 tooth pain 09/16/2011 DALLIN ZIMMERMAN DO F 525.9 tooth pain 09/16/2011 BARRETT DO, JAH K 525.9 tooth pain 09/16/2011 BARRETT DO, JAH K 525.9 tooth pain 09/16/2011 STEPHANIE DDS, CAL Lara 525.9 tooth pain 09/16/2011 BARRETT DO, JAH K 525.9 tooth pain 09/16/2011 BARRETT DO, JAH K 525.9 tooth pain 09/16/2011 BARRETT DO, JAH K 525.9 tooth pain 09/16/2011 525.9 tooth pain 10/16/2011 DALLIN ZIMMERMAN DO F 724.2 LUMBAGO 10/16/2011 [facility], KENDRICK R 724.2 LUMBAGO 10/16/2011 DALLIN ZIMMERMAN DO F 724.2 LUMBAGO 10/16/2011 THELMA RAMOS 724.2 LUMBAGO 10/16/2011 MYLES SETHI MD 724.2 LUMBAGO 10/16/2011 724.2 lower back pain 10/16/2011 724.2 lower back pain 10/16/2011 DALLIN ZIMMERMAN DO F 724.2 lower back pain 10/16/2011 BARRETT DO, JAH K 724.2 lower back pain 10/16/2011 BARRETT DO, JAH K 724.2 lower back pain 10/16/2011 STEPHANIE CANCHOLAS, CAL Lara 724.2 lower back pain 10/16/2011 BARRETT DO, JAH K 724.2 lower back pain 10/16/2011 BARRETT DO, JAH K 724.2 lower back pain 10/16/2011 BARRETT DO, JAH K 724.2 lower back pain 10/16/2011 724.2 LUMBAGO 10/22/2011 DALLIN ZIMMERMAN DO F 414.01 CORONARY ATHEROSCLEROSIS OF [place] CORONARY ARTERY 10/22/2011 [facility], KENDRICK R 414.01 CORONARY ATHEROSCLEROSIS OF [place] CORONARY ARTERY 10/22/2011 DALLIN ZIMMERMAN DO 414.01 CORONARY ATHEROSCLEROSIS OF [place] CORONARY ARTERY 10/22/2011 THELMA RAMOS 414.01 CORONARY ATHEROSCLEROSIS OF [place] CORONARY ARTERY 10/22/2011 MYLES SETHI MD 414.01 CORONARY ATHEROSCLEROSIS OF [place] CORONARY ARTERY 10/22/2011 414.01 CORONARY ATHEROSCLEROSIS OF [place] CORONARY ARTERY 10/22/2011 414.01 CORONARY ATHEROSCLEROSIS OF [place] CORONARY ARTERY 10/22/2011 WERDER DO DALLIN F 414.01 CORONARY ATHEROSCLEROSIS OF [place] CORONARY ARTERY 10/22/2011 BARRETT DO, JAH K 414.01 CORONARY ATHEROSCLEROSIS OF [place] CORONARY ARTERY 10/22/2011 BARRETT DO, JAH K 414.01 CORONARY ATHEROSCLEROSIS OF [place] CORONARY ARTERY 10/22/2011 CAL BROWN DDS 414.01 CORONARY ATHEROSCLEROSIS OF [place] CORONARY ARTERY 10/22/2011 BARRETT DO, JAH K 414.01 CORONARY ATHEROSCLEROSIS OF [place] CORONARY ARTERY 10/22/2011 BARRETT DO, JAH K 414.01 CORONARY ATHEROSCLEROSIS OF [place] CORONARY ARTERY 10/22/2011 BARRETT DO, JAH K 414.01 CORONARY ATHEROSCLEROSIS OF [place] CORONARY ARTERY 10/22/2011 414.01 CORONARY ATHEROSCLEROSIS OF [place] CORONARY ARTERY 11/12/2011 KRISTA ZIMMERMAN DOEN F 414.00 CORONARY ARTERY DISEASE 11/12/2011 ERASMO GUZMAN DALLIN F 477.9 ALLERGIC RHINITIS 11/12/2011 [facility], KENDRICK R 414.00 CORONARY ARTERY DISEASE 11/12/2011 [facility], KENDRICK R 477.9 ALLERGIC RHINITIS 11/12/2011 ERASMO DO DALLIN F 414.00 CORONARY ARTERY DISEASE 11/12/2011 KRISTA ZIMMERMAN DOEN F 477.9 ALLERGIC RHINITIS 11/12/2011 THELMA RAMOS 414.00 CORONARY ARTERY DISEASE 11/12/2011 THELMA RAMOS 477.9 ALLERGIC RHINITIS 11/12/2011 MYLES SETHI MD 414.00 CORONARY ARTERY DISEASE 11/12/2011 MYLES SETHI MD 477.9 ALLERGIC RHINITIS 11/12/2011 414.00 CORONARY ARTERY DISEASE 11/12/2011 477.9 ALLERGIC RHINITIS 11/12/2011 414.00 CORONARY ARTERY DISEASE 11/12/2011 477.9 ALLERGIC RHINITIS 11/12/2011 ERASMO GUZMAN DALLIN F 414.00 CORONARY ARTERY DISEASE 11/12/2011 CANDIDODER DO DALLIN F 477.9 ALLERGIC RHINITIS 11/12/2011 BARRETT DO JAH K 414.00 CORONARY ARTERY DISEASE 11/12/2011 BARRETT DO, JAH K 477.9 ALLERGIC RHINITIS 11/12/2011 BARRETT DO, JAH K 414.00 CORONARY ARTERY DISEASE 11/12/2011 BARRETT DO, JAH K 477.9 ALLERGIC RHINITIS 11/12/2011 CAL BROWN DDS 414.00 CORONARY ARTERY DISEASE 11/12/2011 WHITE JESIKAS, CAL Lara 477.9 ALLERGIC RHINITIS 11/12/2011 BARRETT DO, JAH K 414.00 CORONARY ARTERY DISEASE 11/12/2011 BARRETT DO, JAH K 477.9 ALLERGIC RHINITIS 11/12/2011 BARRETT DO, JAH K 414.00 CORONARY ARTERY DISEASE 11/12/2011 BARRETT DO, JAH K 477.9 ALLERGIC RHINITIS 11/12/2011 BARRETT DO, JAH K 414.00 CORONARY ARTERY DISEASE 11/12/2011 BARRETT DO, JAH K 477.9 ALLERGIC RHINITIS 11/12/2011 414.00 CORONARY ARTERY DISEASE 11/12/2011 477.9 ALLERGIC RHINITIS 11/19/2011 WERKRISTA SHELTON DOEN F 465.9 UPPER RESPIRATORY INFECTION 11/19/2011 [facility], KENDRICK R 465.9 UPPER RESPIRATORY INFECTION 11/19/2011 KRISTA ZIMMERMAN DOEN F 465.9 UPPER RESPIRATORY INFECTION 11/19/2011 THELMA RAMOS 465.9 UPPER RESPIRATORY INFECTION 11/19/2011 NAVDEEP KOHLI, MYLES 465.9 UPPER RESPIRATORY INFECTION 11/19/2011 465.9 UPPER RESPIRATORY INFECTION 11/19/2011 465.9 UPPER RESPIRATORY INFECTION 11/19/2011 KRISTA ZIMMERMAN DOEN F 465.9 UPPER RESPIRATORY INFECTION 11/19/2011 BARRETT DO, JAH K 465.9 UPPER RESPIRATORY INFECTION 11/19/2011 BARRETT DO, JAH K 465.9 UPPER RESPIRATORY INFECTION 11/19/2011 STEPHANIE CANCHOLASCAL 465.9 UPPER RESPIRATORY INFECTION 11/19/2011 BARRETT DO, JAH K 465.9 UPPER RESPIRATORY INFECTION 11/19/2011 BARRETT DO, JAH K 465.9 UPPER RESPIRATORY INFECTION 11/19/2011 BARRETT DO, JAH K 465.9 UPPER RESPIRATORY INFECTION 11/19/2011 465.9 UPPER RESPIRATORY INFECTION 12/04/2011 KRISTA ZIMMERMAN DOEN F 338.19 ACUTE PAIN 12/04/2011 KRISTA ZIMMERMAN DOEN F 790.29 PREDIABETES (IMPAIRED GLUCOSE TOLERANCE) 12/04/2011 [facility], KENDRICK R 338.19 ACUTE PAIN 12/04/2011 [facility], KENDRICK R 790.29 PREDIABETES (IMPAIRED GLUCOSE TOLERANCE) 12/04/2011 DALLIN ZIMMERMAN DO F 338.19 ACUTE PAIN 12/04/2011 KRISTA ZIMMERMAN DOEN F 790.29 PREDIABETES (IMPAIRED GLUCOSE TOLERANCE) 12/04/2011 THELMA RAMOS 338.19 ACUTE PAIN 12/04/2011 THELMA RAMOS 790.29 PREDIABETES (IMPAIRED GLUCOSE TOLERANCE) 12/04/2011 MYLES SETHI MD 338.19 ACUTE PAIN 12/04/2011 MYLES SETHI MD 790.29 PREDIABETES (IMPAIRED GLUCOSE TOLERANCE) 12/04/2011 338.19 ACUTE PAIN 12/04/2011 790.29 PREDIABETES ( IMPAIRED GLUCOSE TOLERANCE) 12/04/2011 338.19 ACUTE PAIN 12/04/2011 790.29 PREDIABETES ( IMPAIRED GLUCOSE TOLERANCE) 12/04/2011 DALLIN ZIMMERMAN DO 338.19 ACUTE PAIN 12/04/2011 DALLIN ZIMMERMAN DO 790.29 PREDIABETES (IMPAIRED GLUCOSE TOLERANCE) 12/04/2011 BARRETT DO, JAH K 338.19 ACUTE PAIN 12/04/2011 BARRETT DO, JAH K 790.29 PREDIABETES (IMPAIRED GLUCOSE TOLERANCE) 12/04/2011 BARRETT DO, JAH K 338.19 ACUTE PAIN 12/04/2011 BARRETT DO, JAH K 790.29 PREDIABETES (IMPAIRED GLUCOSE TOLERANCE) 12/04/2011 WHITE DDS, CAL D 338.19 ACUTE PAIN 12/04/2011 WHITE DDS, CAL D 790.29 PREDIABETES (IMPAIRED GLUCOSE TOLERANCE) 12/04/2011 BARRETT DO, JAH K 338.19 ACUTE PAIN 12/04/2011 BARRETT DO, JAH K 790.29 PREDIABETES (IMPAIRED GLUCOSE TOLERANCE) 12/04/2011 BARRETT DO, JAH K 338.19 ACUTE PAIN 12/04/2011 BARRETT DO, JAH K 790.29 PREDIABETES (IMPAIRED GLUCOSE TOLERANCE) 12/04/2011 BARRETT DO, JAH K 338.19 ACUTE PAIN 12/04/2011 BARRETT DO, JAH K 790.29 PREDIABETES (IMPAIRED GLUCOSE TOLERANCE) 12/04/2011 338.19 ACUTE PAIN 12/04/2011 790.29 PREDIABETES ( IMPAIRED GLUCOSE TOLERANCE) 12/23/2011 DALLIN ZIMMERMAN DO 786.50 chest pain or discomfort 12/23/2011 JAYY [facility], KENDRICK Carpenter 786.50 chest pain or discomfort 12/23/2011 DALLIN ZIMMERMAN DO 786.50 chest pain or discomfort 12/23/2011 THELMA RAMOS 786.50 chest pain or discomfort 12/23/2011 MYLES SETHI MD 786.50 chest pain or discomfort 12/23/2011 786.50 chest pain or discomfort 12/23/2011 786.50 chest pain or discomfort 12/23/2011 DALLIN ZIMMERMAN DO 786.50 chest pain or discomfort 12/23/2011 BARRETT DO, JAH K 786.50 chest pain or discomfort 12/23/2011 BARRETT DO, JAH K 786.50 chest pain or discomfort 12/23/2011 STEPHANIE CANCHOLASCAL 786.50 chest pain or discomfort 12/23/2011 BARRETT DO, JAH K 786.50 chest pain or discomfort 12/23/2011 BARRETT DO, JAH K 786.50 chest pain or discomfort 12/23/2011 BARRETT DO, JAH K 786.50 chest pain or discomfort 12/23/2011 786.50 chest pain or discomfort 01/28/2012 DALLIN ZIMMERMAN DO 477.0 ALLERGIC RHINITIS - POLLEN 01/28/2012 DALLIN ZIMMERMAN DO V65.42 Intervention And Counseling On Cessation Of Tobacco Use 01/28/2012 [facility], KENDRICK R 477.0 ALLERGIC RHINITIS - POLLEN 01/28/2012 [facility], KENDRICK R V65.42 Intervention And Counseling On Cessation Of Tobacco Use 01/28/2012 DALLIN ZIMMERMAN DO 477.0 ALLERGIC RHINITIS - POLLEN 01/28/2012 DALLIN ZIMMERMAN DO V65.42 Intervention And Counseling On Cessation Of Tobacco Use 01/28/2012 THELMA RAMOS 477.0 ALLERGIC RHINITIS - POLLEN 01/28/2012 THELMA RAMOS V65.42 Intervention And Counseling On Cessation Of Tobacco Use 01/28/2012 MYLES SETHI MD 477.0 ALLERGIC RHINITIS - POLLEN 01/28/2012 MYLES SETHI MD V65.42 Intervention And Counseling On Cessation Of Tobacco Use 01/28/2012 477.0 ALLERGIC RHINITIS - POLLEN 01/28/2012 V65.42 Intervention And Counseling On Cessation Of Tobacco Use 01/28/2012 477.0 ALLERGIC RHINITIS - POLLEN 01/28/2012 V65.42 Intervention And Counseling On Cessation Of Tobacco Use 01/28/2012 DALLIN ZIMMERMAN DO 477.0 ALLERGIC RHINITIS - POLLEN 01/28/2012 WERDER DO, DALLIN F V65.42 Intervention And Counseling On Cessation Of Tobacco Use 01/28/2012 BARRETT DO, JAH K 477.0 ALLERGIC RHINITIS - POLLEN 01/28/2012 BARRETT DO, JAH K V65.42 Intervention And Counseling On Cessation Of Tobacco Use 01/28/2012 BARRETT DO, JAH K 477.0 ALLERGIC RHINITIS - POLLEN 01/28/2012 BARRETT DO, JAH K V65.42 Intervention And Counseling On Cessation Of Tobacco Use 01/28/2012 WHITE CAL CHU 477.0 ALLERGIC RHINITIS - POLLEN 01/28/2012 WHITE JESIKASCAL V65.42 Intervention And Counseling On Cessation Of Tobacco Use 01/28/2012 BARRETT DO, JAH K 477.0 ALLERGIC RHINITIS - POLLEN 01/28/2012 BARRETT DO, JAH K V65.42 Intervention And Counseling On Cessation Of Tobacco Use 01/28/2012 BARRETT DO, JAH K 477.0 ALLERGIC RHINITIS - POLLEN 01/28/2012 BARRETT DO, JAH K V65.42 Intervention And Counseling On Cessation Of Tobacco Use 01/28/2012 BARRETT DO, JAH K 477.0 ALLERGIC RHINITIS - POLLEN 01/28/2012 BARRETT DO, JAH K V65.42 Intervention And Counseling On Cessation Of Tobacco Use 01/28/2012 477.0 ALLERGIC RHINITIS - POLLEN 01/28/2012 V65.42 Intervention And Counseling On Cessation Of Tobacco Use 12/06/2012 DALLIN ZIMMERMAN DO 786.05 SHORTNESS OF BREATH 12/06/2012 BARRETT DO, JAH K 786.05 SHORTNESS OF BREATH 12/06/2012 BARRETT DO, JAH K 786.05 SHORTNESS OF BREATH 12/06/2012 CAL BROWN DDS 786.05 SHORTNESS OF BREATH 12/06/2012 BARRETT DO, JAH K 786.05 SHORTNESS OF BREATH 12/06/2012 BARRETT DO, JAH K 786.05 SHORTNESS OF BREATH 12/06/2012 BARRETT DO, JAH K 786.05 SHORTNESS OF BREATH 01/12/2013 307.81 Headache - tension 01/12/2013 307.81 Headache - tension 01/12/2013 DALLIN ZIMMERMAN DO 307.81 Headache - tension 01/12/2013 BARRETT DO, JAH K 307.81 Headache - tension 01/12/2013 BARRETT DO, JAH K 307.81 Headache - tension 01/12/2013 CAL BROWN DDS 307.81 Headache - tension 01/12/2013 BARRETT DO, JAH K 307.81 Headache - tension 01/12/2013 BARRETT DO, JAH K 307.81 Headache - tension 01/12/2013 BARRETT DO, JAH K 307.81 Headache - tension 02/23/2013 719.45 joint pain in the right hip 02/23/2013 DALLIN ZIMMERMAN DO 719.45 joint pain in the right hip 02/23/2013 BARRETT DO, JAH K 719.45 joint pain in the right hip 02/23/2013 BARRETT DO, JAH K 719.45 joint pain in the right hip 02/23/2013 WHITE DDS, CAL D 719.45 joint pain in the right hip 02/23/2013 BARRETT DO, JAH K 719.45 joint pain in the right hip 02/23/2013 BARRETT DO, JAH K 719.45 joint pain in the right hip 02/23/2013 BARRETT DO, JAH K 719.45 joint pain in the right hip 08/14/2013 BARRETT DO, JAH K 461.0 ACUTE MAXILLARY SINUSITIS 08/14/2013 BARRETT DO, JAH K 461.0 ACUTE MAXILLARY SINUSITIS 08/14/2013 WHITE DDS, CAL D 461.0 ACUTE MAXILLARY SINUSITIS 08/14/2013 BARRETT DO, JAH K 461.0 ACUTE MAXILLARY SINUSITIS 08/14/2013 BARRETT DO, JAH K 461.0 ACUTE MAXILLARY SINUSITIS 08/14/2013 BARRETT DO, JAH K 461.0 ACUTE MAXILLARY SINUSITIS 10/04/2013 BARRETT DO, JAH K 521.00 UNSPECIFIED DENTAL CARIES 10/04/2013 WHITE DDS, CAL D 521.00 UNSPECIFIED DENTAL CARIES 10/04/2013 BARRETT DO, JAH K 521.00 UNSPECIFIED DENTAL CARIES 10/04/2013 BARRETT DO, JAH K 521.00 UNSPECIFIED DENTAL CARIES 10/04/2013 BARRETT DO, JAH K 521.00 UNSPECIFIED DENTAL CARIES 11/29/2013 BARRETT DO, JAH K 626.8 OTHER DISORDERS OF MENSTRUATION AND OTHER ABNORMAL BLEEDING FROM FEMALE GENITAL TRACT 11/29/2013 BARRETT DO JAH K V73.81 HPV SCREENING 11/29/2013 NEAN GUZMAN JAH K V76.10 BREAST CANCER SCREENING 11/29/2013 BARRETT DO, JAH K V76.2 CERVICAL CANCER SCREENING (PAP SMEAR) 11/29/2013 NENA JAH GUZMAN 626.8 OTHER DISORDERS OF MENSTRUATION AND OTHER ABNORMAL BLEEDING FROM FEMALE GENITAL TRACT 11/29/2013 NENA JAH GUZMAN V73.81 HPV SCREENING 11/29/2013 NENA GUZMANJAH V76.10 BREAST CANCER SCREENING 11/29/2013 NENA GUZMANJAH V76.2 CERVICAL CANCER SCREENING (PAP SMEAR) 11/29/2013 JAH BARRETT DO 626.8 OTHER DISORDERS OF MENSTRUATION AND OTHER ABNORMAL BLEEDING FROM FEMALE GENITAL TRACT 11/29/2013 BARRETT JAH GUZMAN V73.81 HPV SCREENING 11/29/2013 NENA JAH GUZMAN V76.10 BREAST CANCER SCREENING 11/29/2013 BARRETT JAH GUZMAN V76.2 CERVICAL CANCER SCREENING (PAP SMEAR) 12/20/2013 BARRETT JAH GUZMAN 278.00 OBESITY 12/20/2013 JAH BARRETT DO 278.00 OBESITY Procedures Code [place] [address] PSYCH DIAG INTER EXAM 07/22/2012 28048 PSYCH IND W/MED CK 20 08/19/2012 01195 INDIV PSYTX 45/50 MIN 09/06/2012 56746 ECHO 2D 12/11/2012 15045 HEART CATH 12/11/2012 54824 ROUTINE VENIPUNCTURE 12/21/2012 97819 CMP 12/21/2012 45369 LIPID PANEL 12/21/2012 22850 LIVER PANEL (LFT) 12/21/2012 60735 XRAY LUMBAR SPINE MIN 4 VIEWS 02/23/2013 08932 XRAY HIP RIGHT UNILATERAL MIN 2 VIEWS 02/23/2013 Physical Physical Therapy, [facility] 02/23/2013 CARDIOLOG AMAIRANI LABOY 10/04/2013 99993 US PELVIC COMPL (REFLEX CPT - 46790) 11/29/2013 86683 MAMMOGRAM, SCREENING 11/29/2013 84276 GC/CHLAM PROBE (STATE) 11/29/2013 Q0091 PAP SMEAR OBTAIN SMEAR 11/29/2013 05466 PAP SMEAR 12/01/2013 26383 CULTURE UROGENITAL 12/02/2013 23844 ROUTINE VENIPUNCTURE 12/20/2013 16723 OXIMETRY 12/20/2013 9171154 GFR CALC (RESULT ONLY) 12/20/2013 70143 CMP 12/20/2013 41276 LIPID PANEL 12/20/2013 Results Test Result Range MICROALBUMIN/CREATININE RATIO, URINE - 05/25/17 12:45 CREATININE, RANDOM URINE 54 mg/dL 20-320 MICROALBUMIN 1.2 mg/dL See Note: MICROALBUMIN/CREATININE RATIO, RANDOM URINE 22 mcg/mg creat <30 LITHIUM (ESKALITH(R)), SERUM - 06/24/17 08:45 LITHIUM 1.0 mmol/L 0.6-1.2 LITHIUM (ESKALITH(R)), SERUM - 07/09/17 13:28 LITHIUM 0.4 mmol/L 0.6-1.2 LITHIUM (ESKALITH(R)), SERUM - 08/09/17 11:40 LITHIUM 1.0 mmol/L 0.6-1.2 LITHIUM (ESKALITH(R)), SERUM - 11/04/17 10:41 LITHIUM 0.5 mmol/L 0.6-1.2 LIPID PANEL - 04/04/18 11:00 CHOLESTEROL, TOTAL 140 mg/dL <200 HDL CHOLESTEROL 35 mg/dL >50 TRIGLYCERIDES 96 mg/dL <150 LDL-CHOLESTEROL 86 mg/dL (calc) NRG CHOL/HDLC RATIO 4.0 (calc) <5.0 NON HDL CHOLESTEROL 105 mg/dL (calc) <130 [facility] - 04/04/18 11:00 GLUCOSE 97 mg/dL 65-99 UREA NITROGEN (BUN) 10 mg/dL 7-25 CREATININE 0.73 mg/dL 0.50-1.05 eGFR NON-AFR. BULGARIAN 96 mL/min/1.73m2 > OR=60 eGFR 111 mL/min/1.73m2 > OR=60 BUN/CREATININE RATIO NOT APPLICABLE (calc) 6-22 SODIUM 137 mmol/L 135-146 POTASSIUM 4.1 mmol/L 3.5-5.3 CHLORIDE 102 mmol/L 98-110 CARBON DIOXIDE 21 mmol/L 20-31 CALCIUM 9.5 mg/dL 8.6-10.4 PROTEIN, TOTAL 7.1 g/dL 6.1-8.1 ALBUMIN 4.1 g/dL 3.6-5.1 GLOBULIN 3.0 g/dL (calc) 1.9-3.7 ALBUMIN/GLOBULIN RATIO 1.4 (calc) 1.0-2.5 BILIRUBIN, TOTAL 0.5 mg/dL 0.2-1.2 ALKALINE PHOSPHATASE 98 U/L 33-130 AST 21 U/L 10-35 ALT 19 U/L 6-29 CBC - 04/04/18 11:00 WHITE BLOOD CELL COUNT 10.9 Thousand/uL 3.8-10.8 RED BLOOD CELL COUNT 4.67 Million/uL 3.80-5.10 HEMOGLOBIN 15.1 g/dL 11.7-15.5 HEMATOCRIT 45.2 % 35.0-45.0 MCV 96.8 fL 80.0-100.0 MCH 32.3 pg 27.0-33.0 MCHC 33.4 g/dL 32.0-36.0 RDW 13.2 % 11.0-15.0 PLATELET COUNT 380 Thousand/uL 140-400 MPV 9.8 fL 7.5-12.5 ABSOLUTE NEUTROPHILS 5788 cells/uL 2816-6953 ABSOLUTE LYMPHOCYTES 3989 cells/uL 850-3900 ABSOLUTE MONOCYTES 752 cells/uL 200-950 ABSOLUTE EOSINOPHILS 305 cells/uL 15-500 ABSOLUTE BASOPHILS 65 cells/uL 0-200 NEUTROPHILS 53.1 % NRG LYMPHOCYTES 36.6 % NRG MONOCYTES 6.9 % NRG EOSINOPHILS 2.8 % NRG BASOPHILS 0.6 % NRG TSH - 04/04/18 11:00 TSH 1.79 mIU/L NRG LITHIUM (ESKALITH(R)), SERUM - 04/04/18 11:00 LITHIUM 0.7 mmol/L 0.6-1.2 TSH - 11/28/18 11:25 TSH 1.71 mIU/L NRG LITHIUM (ESKALITH(R)), SERUM - 11/28/18 11:25 LITHIUM 0.6 mmol/L 0.6-1.2 Encounters ACCT No. Visit Date/Time Discharge Status Pt. Type Provider Facility Loc./Unit Complaint [id number] 12/27/2018 11:40:00 12/27/2018 23:59:59 [facility] [id number] 11/28/2018 10:00:00 Document Registration [id number] 04/04/2018 09:40:00 Document Registration [id number] 11/04/2017 10:00:00 Document Registration [id number] 08/09/2017 11:00:00 Document Registration [id number] 07/09/2017 11:00:00 Document Registration [id number] 06/24/2017 08:20:00 Document Registration [id number] 05/25/2017 11:20:00 Document Registration [id number] 12/20/2013 09:40:00 12/20/2013 23:59:59 [facility]LS Outpatient JAH BARRETT DO [id number] 12/20/2013 09:40:00 12/20/2013 23:59:59 CLS Outpatient JAH BARRETT DO [id number] 11/29/2013 08:21:00 11/29/2013 23:59:59 CLS Outpatient BARRETT DOJAH [id number] 10/31/2013 12:56:00 10/31/2013 23:59:59 CLS Outpatient STEPHANIE CHU CAL Lara [id number] 10/04/2013 09:11:00 10/04/2013 23:59:59 CLS Outpatient SHINE BARRETT DOEstevan Toscano [id number] 08/14/2013 09:26:00 08/14/2013 23:59:59 CLS Outpatient JAH BARRETT DO Dorcas [id number] 04/21/2013 11:42:00 04/21/2013 23:59:59 CLS Outpatient DALLIN ZIMMERMAN DO [id number] 12/21/2012 09:26:00 12/21/2012 23:59:59 CLS Outpatient MYLES SETHI MD [id number] 12/06/2012 09:36:00 12/06/2012 23:59:59 CLS Outpatient THELMA RAMOS [id number] 10/21/2012 11:38:00 10/21/2012 23:59:59 CLS Outpatient DALLIN ZIMMERMAN DO [id number] 09/06/2012 12:48:00 09/06/2012 23:59:59 CLS Outpatient KENDRICK FAJARDO [id number] 08/19/2012 11:17:00 08/19/2012 23:59:59 [place] [id number] 07/22/2012 08:39:00 07/22/2012 23:59:59 CLS Outpatient [id number] 02/23/2013 13:33:00 Document Registration [id number] 01/12/2013 14:49:00 Document Registration
--- NOTE | 2019-02-02 14:47 | Diagnostic Imaging Report ---
INDICATION: Laceration to index finger. COMPARISON: None available. TECHNIQUE: Three views of the left index finger. FINDINGS/IMPRESSION: 1. There appears to be a traumatic soft tissue injury involving the tip of the left index finger. No radiopaque foreign body. 2. No acute fracture or malalignment in the left index finger. Dictated by: Dictated on workstation # [id number]
[2019-02-02] MEDS ORDERED: TETANUS,DIPTH,PERTUSS P/F (BOOSTRIX) 0.5 ML VIAL IM ONE (15:00)
[2019-02-02] MEDS ORDERED: ACHD5005 PO (15:08)
--- NOTE | 2019-02-02 15:08 | ED Integumentary General ---
General Chief Complaint: Laceration Stated Complaint: FINGER LACERATION Nursing Triage Note: Pt reports accidently stabbing a knife all the through the L pointer finger while working in the kitchen at home. Pt does not know last time pt had tetanus shot. Source: patient Exam Limitations: no limitations History of Present Illness Date Seen by Provider: February 02, 2019 Time Seen by Provider: 14:15 Initial Comments 53 year old female who presents to the emergency room with complains of laceration to her left index finger after cutting it with a kitchen knife. She has lac to the smiley surface and dorsal surface caused by a through and through point of the knife. Unsure of last tetanus shout. Bleeding is controlled with pressure. Timing/Duration: just prior to arrival Location: hands Associated Symptoms: denies symptoms Allergies and Home Medications Allergies Coded Allergies: Aripiprazole (Verified Allergy, Unknown, 10/26/11) Penicillins (Verified Allergy, Unknown, 10/26/11) Home Medications Albuterol Sulfate 0.63 Mg/3 Ml Vial.neb, 1 EACH IH Q4H PRN, (Reported) Alprazolam 1 Mg Tablet, 1.5 TAB PO BID PRN, (Reported) PRN ANXIETY Aspirin 81 Mg Tabec, 81 MG PO DAILY, (Reported) Budesonide/Formoterol Fumarate 10.2 Gm Hfa.aer.ad, 10.21 PUFF IH DAILY, (Reported) Cyclobenzaprine Hcl 10 Mg Tablet, 10 MG PO BID PRN, (Reported) Duloxetine Hcl 60 Mg Capsule.dr, 60 MG PO DAILY, (Reported) Ezetimibe 10 Mg Tablet, 10 MG PO DAILY@0900, (Reported) Hydrocodone Bit/Acetaminophen 1 Tab Tab, 1 EACH PO Q4-6HR PRN for PAIN-MODERATE Prescribed by: TAHIR BRO on 02/02/19 1508 Losartan Potassium 100 Mg Tablet, 100 MG PO DAILY, (Reported) Montelukast Sodium 10 Mg Tab, 10 MG PO DAILY, (Reported) IN THE EVENING Omeprazole 20 Mg Capsule.dr, 20 MG PO DAILY, (Reported) Tiotropium [place]ier 18 Mcg Cap.w.dev, 1 EA IH DAILY, (Reported) Trazodone Hcl 150 Mg Tablet, 150 MG PO HS, (Reported) [Oxygen] , 1.5 L INH CONTINIOUS, (Reported) HOME OXYGEN [Proventilin Inhaler] , 2 PUFF IH PRN, (Reported) Patient Home Medication List Home Medication List Reviewed: Yes Review of Systems Review of Systems Constitutional: see HPI; No chills, No fever Skin: see HPI, other (laceration) All Other Systems Reviewed Negative Unless Noted: Yes Past Hpwotjv-Awaisp-Cmiuip Hx Past Med/Social Hx: Reviewed Nursing Past Med/Soc Hx Patient Social History Alcohol Use: Denies Use Recreational Drug Use: No Smoking Status: Current Everyday Smoker Type Used: Cigarettes 2nd Hand Smoke Exposure: Yes Recent Foreign Travel: No Contact w/Someone Who Travel: No Recent Infectious Disease Expo: No Recent Hopitalizations: No Immunizations Up To Date Tetanus Booster (TDap): Unknown Date of Pneumonia Vaccine: May 24, 2012 Date of Influenza Vaccine: Jul 21, 2011 Past Medical History Surgeries: Yes (CABG 10/2011, FRACTURED ARM 2004, C SECTION X4, TUBAL LIGATION) Respiratory: Yes (copd) Cardiac: No Neurological: Yes Reproductive Disorders: No Gastrointestinal: No Endocrine: No Cancer: No Psychosocial: Yes Blood Disorders: No Family Medical History Reviewed Nursing Family Hx Physical Exam Vital Signs Vital Signs - First Documented 02/02/19 14:04 Temp 97.7 Pulse 68 Resp 18 B/P (MAP) 183/85 (117) Pulse Ox 95 O2 Delivery Room Air Capillary Refill : Less Than 3 Seconds General Appearance: WD/WN, no apparent distress Cardiovascular: normal peripheral pulses, regular rate, rhythm, no edema, no gallop, no JVD, no murmur Respiratory: chest non-tender, lungs clear, normal breath sounds, no respiratory distress, no accessory muscle use Neurologic/Psychiatric: alert, normal mood/affect, oriented x 3 Skin: normal color, warm/dry Skin Problem Location: upper extremities (left index finger) Skin Problem Character: other Procedures/Interventions Wound Location: Upper Extremities Other Wound Location left index finger, patient is able to flex and extend finger with out difficulty. Wound Length (cm): 1 Wound's Depth, Shape: superficial, linear Wound Explored: clean Irrigated w/ Saline (ccs): 100 Betadine Prep?: Yes (betasept) Anesthesia: 1% Lidocaine Suture: Prolene, Monocryl Suture Size: 5-0 Number of Sutures: 4 Progress Wound was anesthetized with 1ml of lidocaine to the smiley and dorsal surface of the left index finger. The wound was cleaned and irrigated with normal saline and Betasept. Finger tourniquet was applied and 3 simple interrupted sutures of 5-0 Prolene to the smiley surface and 1 simple suture to the dorsal surface was made. Tourniquet was removed. Progress/Results/Core Measures Results/Orders My Orders Orders - TAHIR BRO Finger(S) (02/02/19 14:16) Dipht,Pertuss(Acell),Tet Adult (Boostrix (02/02/19 15:00) Vital Signs/I&O 02/02/19 02/02/19 14:04 15:20 Temp 97.7 97.7 Pulse 68 68 Resp 18 18 B/P (MAP) 183/85 (117) 183/85 (117) Pulse Ox 95 95 O2 Delivery Room Air Room Air Blood Pressure Mean: 117 Departure Impression Primary Impression: Laceration Disposition: 01 HOME, SELF-CARE Condition: Stable/Unchanged Departure-Patient Inst. Decision time for Depature: 15:07 Referrals: [facility] (PCP) Primary Care Physician CAROL COTA APRN (Family) Primary Care Physician Patient Instructions: Laceration Repair With Stitches (DC) Add. Discharge Instructions: Watch for signs of infection such as increased redness, swelling, drainage, pain. Ibuprofen and Tylenol as directed by the bottle for pain relief. For pain unrelieved by ibuprofen and Tylenol you may use hydrocodone. Return back to the emergency room in 7 days to have the sutures removed. Follow-up with primary care provider as needed. Return back to the emergency room for worsening symptoms or concerns as needed. Change the dressing daily or as needed. All discharge instructions reviewed with patient and/or family. Voiced understanding. Scripts Hydrocodone Bit/Acetaminophen (Hydrocodone/Acetaminophen 5/325mg Tablet) 1 Tab Tab 1 EACH PO Q4-6HR PRN for PAIN-MODERATE MDD 10 for 3 Days, #10 TAB Prov: TAHIR BRO 02/02/19 TAHIR BRO February 02, 2019 15:08
[2019-02-02 15:20] VITALS: BP 183/85
== END 2019-02-02 15:20 | disposition home or self-care (01) ==
LOC: EDUNIT# 13:43 → ER 13:44
DX: S61.211A Laceration without foreign body of left index finger without damage to nail, initial encounter (principal); J44.9 Chronic obstructive pulmonary disease, unspecified; F17.210 Nicotine dependence, cigarettes, uncomplicated; Z23 Encounter for immunization; Z98.51 Tubal ligation status; Z95.1 Presence of aortocoronary bypass graft; Z88.0 Allergy status to penicillin; Z79.82 Long term (current) use of aspirin; Z88.8 Allergy status to other drugs, medicaments and biological substances; W26.0XXA Contact with knife, initial encounter; Y92.009 Unspecified place in unspecified non-institutional (private) residence as the place of occurrence of the external cause
CPT/HCPCS: 73140; 90715

== ENCOUNTER 2019-11-15 20:19 | Outpatient (CLI) | payer MEDICAID | END 2019-11-16 06:30 | disposition home or self-care (01) | LOC: SLEEP 20:19 | PROVIDERS: ATTEND Nurse Practitioner Family | DX: G47.33 Obstructive sleep apnea (adult) (pediatric) (principal); I10 Essential (primary) hypertension; I25.9 Chronic ischemic heart disease, unspecified | CPT/HCPCS: 95811 ==